=== PATIENT | female | born 1995 | race Caucasian/White ===

== ENCOUNTER → 2018-04-29 15:45 | Outpatient (CLI) | payer BC, SELFPAY ==
[2018-05-06 12:14] LABS: HPV Reflexed? NOT INDICATED
== END ==
PROVIDERS: Visit Provider Obstetrics & Gynecology
DX: Z12.4 Encounter for screening for malignant neoplasm of cervix (principal)
CPT/HCPCS: 88175; G0145

== ENCOUNTER → 2020-09-26 | Outpatient (CLI) | payer BC, OTHER, SELFPAY ==
[2020-09-26 08:52] VITALS: BMI 25.6
[2020-09-28 20:46] LABS: HPV Reflexed? NOT INDICATED
== END | disposition home or self-care (01) ==
LOC: LABSPEC 12:47
PROVIDERS: PCP Family Medicine; Referring Provider Nurse Practitioner Women's Health; Visit Provider Nurse Practitioner Women's Health
DX: Z12.4 Encounter for screening for malignant neoplasm of cervix (principal)
CPT/HCPCS: 88175; G0145

== ENCOUNTER → 2020-11-23 16:10 | Outpatient (CLI) | payer BC, OTHER, SELFPAY ==
[2020-09-26 08:52] VITALS: BMI 25.6
[2020-11-23 18:09] LABS: hCG Titer Quant., Serum 10 mIU/mL (1-3)
== END ==
PROVIDERS: PCP Family Medicine; Referring Provider Obstetrics & Gynecology; Visit Provider Obstetrics & Gynecology
DX: N91.2 Amenorrhea, unspecified (principal)
CPT/HCPCS: 36415; 84702; 86850; 86900; 86901

== ENCOUNTER → 2020-11-25 09:55 | Outpatient (CLI) | payer BC, OTHER, SELFPAY ==
[2020-11-24 14:14] VITALS: BMI 25.2
[2020-11-25 10:46] LABS: hCG Titer Quant., Serum 2 mIU/mL (1-3)
== END ==
PROVIDERS: PCP Family Medicine; Referring Provider Obstetrics & Gynecology; Visit Provider Obstetrics & Gynecology
DX: O02.1 Missed abortion (principal)
CPT/HCPCS: 36415; 84702

== ENCOUNTER → 2020-12-25 11:59 | Outpatient (CLI) | payer BC, OTHER, SELFPAY ==
[2020-12-18 14:10] VITALS: BMI 25.5
[2020-12-25 12:43] LABS: hCG Titer Quant., Serum 9 mIU/mL (1-3)
== END ==
PROVIDERS: PCP Family Medicine; Referring Provider Obstetrics & Gynecology; Visit Provider Obstetrics & Gynecology
DX: N91.2 Amenorrhea, unspecified (principal)
CPT/HCPCS: 36415; 84702

== ENCOUNTER → 2020-12-27 09:09 | Outpatient (CLI) | payer BC, OTHER, SELFPAY ==
[2020-12-18 14:10] VITALS: BMI 25.5
[2020-12-27 09:46] LABS: hCG Titer Quant., Serum 4 mIU/mL (1-3)
== END ==
PROVIDERS: PCP Family Medicine; Referring Provider Obstetrics & Gynecology; Visit Provider Obstetrics & Gynecology
DX: N91.2 Amenorrhea, unspecified (principal)
CPT/HCPCS: 36415; 84702

== ENCOUNTER → 2021-01-11 15:03 | Outpatient (CLI) | payer BC, OTHER, SELFPAY ==
[2021-01-11 14:12] VITALS: BMI 25.5
[2021-01-11 16:06] LABS: Thyroid Stim Hormone (TSH) 1.26 uIU/mL (0.358-3.74)
[2021-01-14 12:07] LABS: Dilute Prothrombin Time (dPT) 33.2 sec (0.0-55.0); Dilute Russell Viper Venom 30.7 sec (0.0-47.0); PTT-LA 39.3 sec (0.0-51.9); Thrombin Time 17.5 sec (0.0-23.0)
[2021-01-15 07:41] LABS: Anti-Cardiolipin Ab, IgA, Qn < 9 APL U/mL (0-11); Anti-Cardiolipin Ab, IgG, Qn 10 GPL U/mL (0-14); Anti-Cardiolipin Ab, IgM, Qn 13 MPL U/mL (0-12); Beta-2-Glycoprotein I IgA <9 (0-25); Beta-2-Glycoprotein I IgG <9 (0-20); Beta-2-Glycoprotein I IgM <9 (0-32); Interpretation Comment: (.)
== END ==
PROVIDERS: PCP Family Medicine; Referring Provider Obstetrics & Gynecology; Visit Provider Obstetrics & Gynecology
DX: N96 Recurrent pregnancy loss (principal)
CPT/HCPCS: 36415; 84443; 86146; 86147

== ENCOUNTER → 2021-01-15 14:28 | Outpatient (CLI) | payer BC, OTHER, SELFPAY ==
[2021-01-11 14:12] VITALS: BMI 25.5
--- NOTE | 2021-01-15 14:30 | US_ITS ---
STUDY: Ultrasound pelvis non-OB complete with transvaginal imaging CLINICAL: Female, 25 years old. History of recurrent miscarriage TECHNIQUE: Transvaginal COMPARISON: None. FINDINGS: Normal uterine size measuring 6.7 x 5.3 x 3 cm in maximal craniocaudal dimension. There are no myometrial masses. Normal endometrial thickness measuring 8 mm. The endometrium is hyperechoic. There are no endometrial masses, and there is no fluid in the endometrial cavity. There are multiple nabothian cysts. Normal right ovary, measuring 4.7 x 3.4 x 2.0 cm. There are multiple follicles without a dominant cyst. Normal left ovary, measuring 2.8 x 1.7 x 1.6 cm. There are multiple follicles without a dominant cyst. There is a small to moderate amount of free fluid in the pelvis. Polycystic ovary disease: No. The bladder is distended. US/Pelvic (Non ) IMPRESSION: Small to moderate amount of fluid in the pelvis. Potentially a recently ruptured ovarian cyst could have this appearance. No visualized torsion. Electronically Signed: Betzy Montgomery MD at 8:11 EDT Tel , Service support ,
--- NOTE | 2021-01-15 14:30 | US_ITS ---
STUDY: Ultrasound pelvis non-OB complete with transvaginal imaging CLINICAL: Female, 25 years old. History of recurrent miscarriage TECHNIQUE: Transvaginal COMPARISON: None. FINDINGS: Normal uterine size measuring 6.7 x 5.3 x 3 cm in maximal craniocaudal dimension. There are no myometrial masses. Normal endometrial thickness measuring 8 mm. The endometrium is hyperechoic. There are no endometrial masses, and there is no fluid in the endometrial cavity. There are multiple nabothian cysts. Normal right ovary, measuring 4.7 x 3.4 x 2.0 cm. There are multiple follicles without a dominant cyst. Normal left ovary, measuring 2.8 x 1.7 x 1.6 cm. There are multiple follicles without a dominant cyst. There is a small to moderate amount of free fluid in the pelvis. Polycystic ovary disease: No. The bladder is distended. US/Transvaginal Non- IMPRESSION: Small to moderate amount of fluid in the pelvis. Potentially a recently ruptured ovarian cyst could have this appearance. No visualized torsion. Electronically Signed: Betzy Montgomery MD at 8:11 EDT Tel , Service support ,
== END ==
PROVIDERS: PCP Family Medicine; Referring Provider Obstetrics & Gynecology; Visit Provider Obstetrics & Gynecology
DX: N96 Recurrent pregnancy loss (principal)
CPT/HCPCS: 76830; 76856

== ENCOUNTER → 2021-01-23 11:42 | Outpatient (CLI) | payer BC, OTHER, SELFPAY ==
[2021-01-11 14:12] VITALS: BMI 25.5
[2021-01-23 12:28] LABS: hCG Titer Quant., Serum 42 mIU/mL (1-3)
== END ==
PROVIDERS: PCP Family Medicine; Referring Provider Obstetrics & Gynecology; Visit Provider Obstetrics & Gynecology
DX: N91.2 Amenorrhea, unspecified (principal)
CPT/HCPCS: 36415; 84702

== ENCOUNTER → 2021-01-25 12:28 | Outpatient (CLI) | payer BC, OTHER, SELFPAY ==
[2021-01-11 14:12] VITALS: BMI 25.5
[2021-01-25 13:29] LABS: hCG Titer Quant., Serum 117 mIU/mL (1-3)
== END ==
PROVIDERS: PCP Family Medicine; Referring Provider Obstetrics & Gynecology; Visit Provider Obstetrics & Gynecology
DX: N91.2 Amenorrhea, unspecified (principal)
CPT/HCPCS: 36415; 84702

== ENCOUNTER → 2021-01-27 11:41 | Outpatient (CLI) | payer BC, OTHER, SELFPAY ==
[2021-01-11 14:12] VITALS: BMI 25.5
[2021-01-27 12:41] LABS: hCG Titer Quant., Serum 282 mIU/mL (1-3)
== END ==
PROVIDERS: PCP Family Medicine; Referring Provider Obstetrics & Gynecology; Visit Provider Obstetrics & Gynecology
DX: N96 Recurrent pregnancy loss (principal)
CPT/HCPCS: 36415; 84702

== ENCOUNTER → 2021-02-22 | Outpatient (CLI) | payer BC, OTHER, SELFPAY ==
[2021-02-22 09:57] VITALS: BMI 25.7
[2021-02-22 11:11] LABS: Amphetamine Urine VISTA NEGATIVE (<1000 ng/mL); Barbiturate Urine VISTA NEGATIVE (< 200 ng/mL); Benzodiazepine Urine VISTA NEGATIVE (< 200 ng/mL); Cocaine Urine VISTA NEGATIVE (< 300 ng/mL); Ecstacy Urine VISTA NEGATIVE (< 500 ng/mL); Methadone Urine VISTA NEGATIVE (< 300 ng/mL); PCP Urine VISTA NEGATIVE (< 25 ng/mL); THC Urine VISTA NEGATIVE (< 50 ng/mL); Vista UDS pH Range 7
[2021-02-24 03:07] LABS: Chlamydia By Nucleic Acid AMP Negative (Negative)
[2021-02-24 07:32] LABS: Gonococcus By Nucleic Acid AMP Negative (Negative)
== END | disposition home or self-care (01) ==
PROVIDERS: PCP Family Medicine; Referring Provider Obstetrics & Gynecology; Visit Provider Obstetrics & Gynecology
DX: O09.90 Supervision of high risk pregnancy, unspecified, unspecified trimester (principal); Z3A.00 Weeks of gestation of pregnancy not specified
CPT/HCPCS: 80307; 87077; 87086; 87088; 87186; 87491; 87591

== ENCOUNTER → 2021-03-12 11:49 | Outpatient (CLI) | payer BC, OTHER, SELFPAY ==
[2021-03-09 10:08] VITALS: BMI 25.7
[2021-03-12 12:17] LABS: Absolute Lymphocyte Count 1.45 X10^3/uL (0.83-4.51); Absolute Neutrophil Count 3.5 X10^3/uL (2.0-7.7); Basophil# 0.04 X10^3/uL; Basophil% 0.7 % (0-1); Eosinophil# 0.27 X10^3/uL; Eosinophils% 4.8 % (0-5); Hemoglobin 11.1 g/dL (12.0-15.0); Lymphocyte # 1.45 X10^3/ul (0.83-4.51); Lymphocyte % 25.8 % (19-41); Mean Corp Hgb Conc 33.6 g/dL (32-36); Mean Corpuscular Hgb 28.4 pg (27.0-32.0); Mean Corpuscular Volume 84.4 fL (81-99); Mean Platelet Vol. 10.4 fl (6.2-12.0); Monocyte# 0.38 X10^3/uL; Monocyte% 6.8 % (0-10); NRBC Flagged by Analyzer 0 % (0-5); Neutrophil # 3.47 X10^3/uL (2.7-7.7); Neutrophil % 61.7 % (47-70); Platelet Count 148 K/mm3 (150-450); RBC Distribution Width CV 11.7 % (11.6-14.6); RBC Distribution Width SD 35.8 fl (35.1-43.9); Red Blood Count 3.91 M/mm3 (4.2-5.4); White Blood Count 5.6 K/mm3 (4.4-11.0)
[2021-03-12 13:09] LABS: NATERA MAILED SPECIMEN
[2021-03-12 13:31] LABS: HIV - WCH Non-Reactive (Nonreactive); Hepatitis B Surface Antigen Non-Reactive (Nonreactive); Hepatitis C Antibody Non-Reactive (Nonreactive); Rubella IgG Non-Reactive (Nonreactive); Syphilis Antibodies Non-reactive
[2021-03-15 03:07] LABS: Dilute Prothrombin Time (dPT) 32.3 sec (0.0-55.0); Dilute Russell Viper Venom 30.9 sec (0.0-47.0); PTT-LA 38.9 sec (0.0-51.9); Thrombin Time 16.6 sec (0.0-23.0); dPT Confirm Ratio 1.12 Ratio (0.00-1.40)
[2021-03-15 07:58] LABS: Anti-Cardiolipin Ab, IgA, Qn < 9 APL U/mL (0-11); Anti-Cardiolipin Ab, IgG, Qn < 9 GPL U/mL (0-14); Anti-Cardiolipin Ab, IgM, Qn 12 MPL U/mL (0-12); Beta-2-Glycoprotein I IgA <9 (0-25); Beta-2-Glycoprotein I IgG <9 (0-20); Beta-2-Glycoprotein I IgM <9 (0-32); Interpretation Comment: (.)
== END ==
PROVIDERS: PCP Family Medicine; Visit Provider Obstetrics & Gynecology
DX: O09.90 Supervision of high risk pregnancy, unspecified, unspecified trimester (principal); O26.21 Pregnancy care for patient with recurrent pregnancy loss, first trimester; Z3A.00 Weeks of gestation of pregnancy not specified; Z31.430 Encounter of female for testing for genetic disease carrier status for procreative management
CPT/HCPCS: 36415; 85025; 86146; 86147; 86703; 86762; 86780; 86803; 86850; 86900; 86901; 87340

== ENCOUNTER → 2021-07-11 08:32 | Outpatient (CLI) | payer BC, SELFPAY ==
[2021-07-11 09:04] LABS: Absolute Lymphocyte Count 1.44 X10^3/uL (0.83-4.51); Absolute Neutrophil Count 6.7 X10^3/uL (2.0-7.7); Basophil# 0.03 X10^3/uL; Basophil% 0.3 % (0-1); Eosinophil# 0.11 X10^3/uL; Eosinophils% 1.2 % (0-5); Hematocrit 32.5 % (37-47); Hemoglobin 11.2 g/dL (12.0-15.0); Lymphocyte # 1.44 X10^3/ul (0.83-4.51); Lymphocyte % 16.3 % (19-41); Mean Corp Hgb Conc 34.5 g/dL (32-36); Mean Corpuscular Hgb 29.7 pg (27.0-32.0); Mean Corpuscular Volume 86.2 fL (81-99); Mean Platelet Vol. 10.8 fl (6.2-12.0); Monocyte# 0.47 X10^3/uL; Monocyte% 5.3 % (0-10); NRBC Flagged by Analyzer 0 % (0-5); Neutrophil # 6.66 X10^3/uL (2.7-7.7); Neutrophil % 75.7 % (47-70); Platelet Count 134 K/mm3 (150-450); RBC Distribution Width CV 11.9 % (11.6-14.6); RBC Distribution Width SD 37.2 fl (35.1-43.9); Red Blood Count 3.77 M/mm3 (4.2-5.4); White Blood Count 8.8 K/mm3 (4.4-11.0)
[2021-07-11 09:24] LABS: Glucose Challenge Gest 1H 50g 88 mg/dL (70-140)
== END ==
PROVIDERS: PCP Family Medicine; Referring Provider Obstetrics & Gynecology; Visit Provider Obstetrics & Gynecology
DX: Z34.92 Encounter for supervision of normal pregnancy, unspecified, second trimester (principal); Z13.1 Encounter for screening for diabetes mellitus
CPT/HCPCS: 36415; 82950; 85025; 86850; 86900; 86901

== ENCOUNTER → 2021-08-07 10:08 | Outpatient (CLI) | payer BC, SELFPAY ==
[2021-08-07 10:28] LABS: Absolute Lymphocyte Count 1.34 X10^3/uL (0.83-4.51); Absolute Neutrophil Count 5.7 X10^3/uL (2.0-7.7); Basophil# 0.03 X10^3/uL; Basophil% 0.4 % (0-1); Eosinophil# 0.11 X10^3/uL; Eosinophils% 1.4 % (0-5); Hematocrit 35.2 % (37-47); Hemoglobin 11.3 g/dL (12.0-15.0); Lymphocyte # 1.34 X10^3/ul (0.83-4.51); Lymphocyte % 16.9 % (19-41); Mean Corp Hgb Conc 32.1 g/dL (32-36); Mean Corpuscular Hgb 28.3 pg (27.0-32.0); Mean Corpuscular Volume 88.2 fL (81-99); Mean Platelet Vol. 10.6 fl (6.2-12.0); Monocyte# 0.63 X10^3/uL; Monocyte% 7.9 % (0-10); NRBC Flagged by Analyzer 0 % (0-5); Neutrophil % 71.6 % (47-70); Platelet Count 142 K/mm3 (150-450); RBC Distribution Width CV 12.5 % (11.6-14.6); RBC Distribution Width SD 39.9 fl (35.1-43.9); Red Blood Count 3.99 M/mm3 (4.2-5.4)
== END ==
PROVIDERS: PCP Family Medicine; Referring Provider Obstetrics & Gynecology; Visit Provider Obstetrics & Gynecology
DX: O99.119 Other diseases of the blood and blood-forming organs and certain disorders involving the immune mechanism complicating pregnancy, unspecified trimester (principal); D69.6 Thrombocytopenia, unspecified; Z3A.00 Weeks of gestation of pregnancy not specified
CPT/HCPCS: 36415; 85025

== ENCOUNTER → 2021-08-10 14:46 | Outpatient (CLI) | payer BC, SELFPAY ==
--- NOTE | 2021-08-10 14:48 | US_ITS ---
History: growth Obstetrical ultrasound: Findings: Single live intrauterine gestation in cephalic presentation, longitudinal lie. cardiac rate is 145 BPM. Fundal placenta without previa or abruption. Grade 1 maturity change. Amniotic fluis index is 19.7 cm Cervix is closed and measures 4.2 cm in length. BPD 8.5cm Head circumference 30.7cm Abdominal circumference 30.4cm Femur length 6.2cm EFW 2254 g 75th percentile for estimated age Composite gestational age by ultrasound measurements 33 weeks 3 days. Clinical gestational is 32 weeks 4 days. Clinical EDC is October 01, 2021. No anatomical abnormalities are identified. Impresion: Single live 32 week 4 day intrauterine gestation with interval growth within the range of normal. at 1706 Reported and signed by: Esteban Read MD Electronically Signed: Esteban Read MD at 17:05 EST Tel , Service support , US/OB Limited With Biometrics
== END ==
PROVIDERS: PCP Family Medicine; Referring Provider Obstetrics & Gynecology; Visit Provider Obstetrics & Gynecology
DX: O98.519 Other viral diseases complicating pregnancy, unspecified trimester (principal); U07.1 COVID-19; Z3A.00 Weeks of gestation of pregnancy not specified
CPT/HCPCS: 76816

== ENCOUNTER 2021-09-04 07:55 | Outpatient (CLI) | payer BC, SELFPAY ==
--- NOTE | 2021-09-04 08:01 | US_ITS ---
STUDY: SECOND AND THIRD TRIMESTER OBSTETRICAL ULTRASOUND REASON FOR EXAM: Female, 26 years old growth LMP: 01/04/2021. TECHNIQUE: Transabdominal TECHNICAL QUALITY: Adequate. PRIOR ULTRASOUND: Comparison is made with prior study dated 08/10/2021 FINDINGS: There is a single intrauterine fetus. The fetus is in a cephalic presentation. There is demonstrated cardiac activity with a heart rate of 126 bpm. There is a normal amniotic fluid volume. The largest amniotic fluid pocket measures 4.9 cm. The amniotic fluid index (MATTEO) is 14.2 cm. The placenta is fundal and posterior in location. There are Grade 1 placental changes. The cervix measures 4 cm in length. The adnexal regions are not visualized. BIOMETRY: BPD: 9.19 cm: 37 weeks, 2 days HC: 33 cm: 37 weeks, 3 days AC: 35.2 cm: 39 weeks, 0 days FL: 6.92 cm: 35 weeks, 3 days CI: 83% FL/BPD: 75% FL/HC: FL/AC: 20% HC/AC: 0.94 age by current US: 37 weeks, 0 days. RONEY by current US: 09/25/2021. Estimated weight: 3380 grams, +/- 507 grams, 92 %. age by prior US: 37 weeks, 0 days. RONEY by prior US: 09/25/2021. Age by LMP: 36 weeks, 1 days. RONEY by LMP: 10/01/2021. US/OB Limited With Biometrics IMPRESSION: Single live intrauterine gestation with a mean gestational age of 37 weeks. The measurements obtained today fall within the normal expected range. Electronically Signed: Philip Bliss MD at 9:35 EST , Service support ,
== END 2021-09-04 23:59 | disposition short-term general hospital (02) ==
PROVIDERS: PCP Family Medicine; Referring Provider Obstetrics & Gynecology; Visit Provider Obstetrics & Gynecology
DX: Z36.85 Encounter for antenatal screening for Streptococcus B (principal)
CPT/HCPCS: 76816; 87081

== ENCOUNTER 2021-10-01 21:50 | Inpatient (IN) | payer BC, SELFPAY ==
[2021-10-01 21:14] VITALS: TEMP 36.6; O2SAT 99
[2021-10-01 21:15] VITALS: BP 134/83; PULSE 113
[2021-10-01 21:20] VITALS: BMI 33.3
[2021-10-01 21:45] LABS: ROM Internal Control Test YES-OK TO RESULT pt. (Internal QC)
[2021-10-01 21:47] LABS: ROM Patient Test POSITIVE (Negative)
[2021-10-01] MEDS: Lactated Ringers 1,000 ML 50 ML IV (22:00)
[2021-10-01 23:20] LABS: Absolute Lymphocyte Count 2.27 X10^3/uL (0.83-4.51); Absolute Neutrophil Count 6.2 X10^3/uL (2.0-7.7); Basophil# 0.04 X10^3/uL; Basophil% 0.4 % (0-1); Eosinophil# 0.13 X10^3/uL; Eosinophils% 1.4 % (0-5); Hematocrit 33.8 % (37-47); Hemoglobin 11.7 g/dL (12.0-15.0); Lymphocyte # 2.27 X10^3/ul (0.83-4.51); Lymphocyte % 23.6 % (19-41); Mean Corp Hgb Conc 34.6 g/dL (32-36); Mean Corpuscular Hgb 29.9 pg (27.0-32.0); Mean Corpuscular Volume 86.4 fL (81-99); Mean Platelet Vol. 11.9 fl (6.2-12.0); Monocyte# 0.85 X10^3/uL; Monocyte% 8.8 % (0-10); NRBC Flagged by Analyzer 0 % (0-5); Neutrophil % 64.4 % (47-70); Platelet Count 139 K/mm3 (150-450); RBC Distribution Width CV 12.5 % (11.6-14.6); RBC Distribution Width SD 39.3 fl (35.1-43.9); Red Blood Count 3.91 M/mm3 (4.2-5.4); White Blood Count 9.6 K/mm3 (4.4-11.0)
--- NOTE | 2021-10-01 23:35 | NURSING ---
Discussed intermittent auscultation with patient, plans to rest at this time and prefers external monitors to be left on. Pt plans to get epidural for pain management.
[2021-10-02] VITALS (63 sets, daily range): BP systolic 105–137; BP diastolic 56–83; PULSE 79–117; TEMP 36.1–37.2; O2SAT 97–100
--- NOTE | 2021-10-02 01:36 | HP.PCM.OB_ITS ---
HPI - General General Date of Admission: 10/01/21 HPI Narrative HEATHER ANGEL, is a 26 F who presents with ROM clear fluid since 8 tonight. she has some mild ctx good fm. Maternal Data Information RONEY Calculator Estimated Delivery Date Method Current WG Current Estimate 10/01/21 LMP (Certain) 40w 1d PFSH PFS Medical History (Updated 10/02/21 @ 01:[address] Ana Wynne MD) Biotinidase deficiency Galactosemia Thrombocytopenia affecting Home Medications docosahexaenoic acid 200 mg capsule 200 mg PO DAILY 09/26/20 [History Last Taken 10/01/21] omega-3 fatty acids 1,000 mg capsule 1,000 mg PO DAILY 09/26/20 [History Last Taken Unknown] aspirin 81 mg tablet,delayed release 81 mg PO DAILY 02/08/21 [History Last Taken 10/01/21] Allergy/AdvReac Type Severity Reaction Status Date / Time No Known Allergies Allergy Verified 10/01/21 21:22 Family History Grandfather Cancer unknown type Grandmother Hypertension Grandfather Hypertension Grandmother Asthma Social History adopted: No household members: spouse number of children: 0 current occupational status: employed current occupation: [employer] sexually active: Yes Smoking Status: Never smoker alcohol intake: never substance use type: does not use seatbelt use: always do you feel safe at home: Yes additional social history: 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 Date Name GA/Weeks Outcome Route Bth Weight Infant Gen Labor Lgth Anesthesia Del Locatn Provider FOB Unknown 11/2020 spontaneous Unknown 12/2020 spontaneous Visit Details Expected Delivery Route/Plan Labor Preferences- CB/BF classes: discussed labor support person: Bam labor intervention preferences: no specific pain management options preferred: epidural cut cord/dad catch: yes : yes PP control planned: [] discussed possible routes of delivery and associated risks: [] special requests: [] Plans covid status: pos, counseled regarding risk of covid in vs vaccination and declined vaccination flu vaccine: declined tdap vaccine: given rhogam: given LARC form signed: declined movement and labor precautions reviewed. Problem list reviewed and updated with the most current plan of care details and appropriate orders placed. Relevant counseling for the gestational age provided. Continue routine care and follow up unless otherwise noted in visit notes/problem list details OB Flowsheet Initial Weight: 145 lb Date -?-?-?-?-?-?-?-?-?-?-?-?- EGA Weight BP Urine Prot -?-?-?-?-?-?-?-?-?-?-?-?- Glucose FHR FuHt Pres Dilation -?-?-?-?-?-?-?-?-?-?-?-?- Effaced St Visit Note 02/22/21 -?-?-?-?-?-?-?-?-?-?-?-?- 8w 3d 145 lb 4 oz (+4 oz) 124/70 -?-?-?-?-?-?-?-?-?-?-?-?- 160 -?-?-?-?-?-?-?-?-?-?-?-?- GP - CRL 17mm co nsistent with LMP 03/09/21 -?-?-?-?-?-?-?-?-?-?-?-?- 10w 4d 120/80 Negative -?-?-?-?-?-?-?-?-?-?-?-?- Negative 160 -?-?-?-?-?-?-?-?-?-?-?-?- GP - no cramping or bleeding. Getting NOB labs and genetic testing drawn next week. 03/28/21 -?-?-?-?-?-?-?-?-?-?-?-?- 13w 2d 148 lb 4 oz (+3 lb 4 oz) 138/80 Negative -?-?-?-?-?-?-?-?-?-?-?-?- Negative 157 -?-?-?-?-?-?-?-?-?-?-?-?- GP - work in for spotting. US with nl heart tones and no evidence of cuong. Had gender reveal last weekend - having a boy! Anatomy scan ordered 05/03/21 -?-?-?-?-?-?-?-?-?-?-?-?- 18w 3d 154 lb 2 oz (+9 lb 2 oz) 120/70 Negative -?-?-?-?-?-?-?-?-?-?-?-?- Negative 145 -?-?-?-?-?--?-?-?-?-?-?-?- GP - no cramping or bleeding. +FM. Anatomy scheduled next week. 05/28/21 -?-?-?-?-?-?-?-?-?-?-?-?- 22w 0d 160 lb (+15 lb) 118/62 -?-?-?-?-?-?-?-?-?-?-?-?- 140 -?-?-?-?-?-?-?-?-?-?-?-?- SM- no vb lof go od fm no regular ctx 06/25/21 -?-?-?-?-?-?-?-?-?-?-?-?- 26w 0d 163 lb (+18 lb) 128/72 Negative -?-?-?-?-?-?-?-?-?-?-?-?- Negative 140 26 -?-?-?-?-?-?-?-?-?-?-?-?- SM- no vb lof go od fm no regular ctx discussed covid pos testing, 07/11/21 -?-?-?-?-?-?-?-?-?-?-?-?- 28w 2d 168 lb 4 oz (+23 lb 4 oz) 134/80 Negative -?-?-?-?-?-?-?-?-?-?-?-?- Negative 154 28 Breech -?-?-?-?-?-?-?-?-?-?-?-?- JV- no lof, vag bleeding or dec fm. Growth scan ordered plan for 31/32 week scan. continue baby asa 07/25/21 -?-?-?-?-?-?-?-?-?-?-?-?- 30w 2d 173 lb (+28 lb) 136/86 Negative -?-?-?-?-?-?-?-?-?-?-?-?- Negative 137 31 -?-?-?-?-?-?-?-?-?-?-?-?- JV- pressure sli ghtly elevated. no proteinuria or headaches. pt will check bp at work and will also have her sister who is a nurse check her. She will call if bp is more than 150/90 or if develops headaches. growth scan in 2 weeks. 08/07/21 -?-?-?-?-?-?-?-?-?-?-?-?- 32w 1d 175 lb (+30 lb) 122/60 Negative -?-?-?-?-?-?-?-?-?-?-?-?- Negative 135 33 -?-?-?-?-?-?-?-?-?-?-?-?- SM- no vb lof go od fm no regualr ctx repeat cbc today 08/21/21 -?-?-?-?-?-?-?-?-?-?-?-?- 34w 1d 182 lb (+37 lb) 136/80 Negative -?-?-?-?-?-?-?-?-?-?-?-?- Negative 135 35 34 -?-?-?-?-?-?-?-?-?-?-?-?- SM- no vb lof go od fm no rgular ctx 09/04/21 -?-?-?-?-?-?-?-?-?-?-?-?- 36w 1d 183 lb (+38 lb) 122/70 -?-?-?-?-?-?-?-?-?-?-?-?- 140 37 Cephalic 1 -?-?-?-?-?-?-?-?-?-?-?-?- 20 -4 SM- no vb lof good fm no regular ctx gbs done 09/12/21 -?-?-?-?-?-?-?-?-?-?-?-?- 37w 2d 184 lb 6 oz (+39 lb 6 oz) 100/70 Negative -?-?-?-?-?-?-?-?-?-?-?-?- Negative 143 38 Cephalic 1 -?-?-?-?-?-?-?-?-?-?-?-?- 50 -4 JV- no lof , vaginal bleeding, or dec fm. gbs was neg 09/18/21 -?-?-?-?-?-?-?-?-?-?-?-?- 38w 1d 184 lb (+39 lb) 124/80 Negative -?-?-?-?-?-?-?-?-?-?-?-?- Negative 140 38 Cephalic 1 -?-?-?-?-?-?-?-?-?-?-?-?- 50 -4 SM- no vb lof good fm no regular ctx 09/25/21 -?-?-?-?-?-?-?-?-?-?-?-?- 39w 1d 189 lb (+44 lb) 130/82 Negative -?-?-?-?-?-?-?-?-?-?-?-?- Negative 146 39 Cephalic 1 -?-?-?-?--?-?-?-?-?-?-?-?- 80 -3 JV- cx sti ll posterior. labor precautions discussed. aim for 41 week IOL if no labor in the meantime. 10/01/21 -?-?-?-?-?-?-?-?-?-?-?-?- 40w 0d 188 lb (+43 lb) 134/83 132/78 -?-?-?-?-?-?-?-?-?-?-?-?- -?-?-?-?-?-?-?-?-?-?-?-?- NST FHR Rate Baby A Baseline: 140 Variability:: Moderate Accelerations:: 15 x 15 Decelerations:: None NST Reactive:: Yes FHR Category:: Category I Uterine Activity:: q3-5 ROS Constitutional Constitutional: Reports systems reviewed and no addt'l complaints, except as documented ENT HEENT: Reports systems reviewed and no addt'l complaints, except as documented Cardiovascular Cardiovascular: Reports systems reviewed and no addt'l complaints, except as documented Respiratory/Chest Respiratory/Chest: Reports systems reviewed and no addt'l complaints, except as documented Gastrointestinal Gastrointestinal: Reports systems reviewed and no addt'l complaints, except as documented and nausea; Denies abdominal pain Genitourinary Genitourinary: Reports systems reviewed and no addt'l complaints, except as documented, contractions Details: present and frequency (regular ) and movement Details: present Musculoskeletal Musculoskeletal: Reports systems reviewed and no addt'l complaints, except as documented Integumentary Integumentary: Reports as per HPI Neurologic Neurologic: Reports systems reviewed and no addt'l complaints, except as documented Endocrine Endocrinology: Reports systems reviewed and no addt'l complaints, except as documented Vital Signs Vital Signs Vital Signs: 10/01/21 21:14 10/01/21 21:15 10/02/21 01:23 Temperature 97.9 F 97.1 F L Temperature Source Temporal Pulse Rate 113 H 80 Blood Pressure 134/83 H 132/78 H BP Systolic 134 132 BP Diastolic 83 78 Pulse Ox 99 100 Weight Weight: 188 lb Body Mass Index (BMI) 33.3 Physical Exam Const alert, oriented x3 and healthy appearing Constitutional Narrative: uncomfortable with contractions HEENT normocephalic and moist oral mucous membranes Head and Scalp: atraumatic Neck full ROM, no lymphadenopathy, supple and thyroid normal General: trachea midline Thyroid: thyroid normal Lymph Lymphatic: no lymphadenopathy noted Chest inspection of chest normal Resp normal respiratory effort Cardio regular rate GI normal to inspection, nondistended, normoactive bowel sounds, soft to palpation and non-tender Inspection: gravid external exam normal Bimanual Exam - Vag & Uterus: uterus non-tender Manual OB Exam: estimated gestational size appropriate, presentation cephalic, dilated, effaced and station Extremity normal to inspection General Extremity: Negative for edema Skin no rashes or lesions noted Neuro deep tendon reflexes 2+ bilaterally Motor Exam: strength 5/5 throughout and clonus absent Psych mental status grossly normal Labs Labs Labs: Blood Type O NEGATIVE Antibody Screen NEGATIVE Hct 33.8 % (37-47) L Hgb 11.7 g/dL (12.0-15.0) L Obstetrics US Syphilis Total Ab Non-reactive Rubella IgG Antibody Non-Reactive (Nonreactive) Hep Bs Antigen Non-Reactive (Nonreactive) Neisseria gonorrhoeae DNA (AUDRA) Negative (Negative) HIV 1&2 Antibody Non-Reactive (Nonreactive) Glucose 1 Hr 50 gm 88 mg/dL (70-140) Assessment & Plan (1) 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 (2) COVID-19 affecting , antepartum: COMMENT: at 24 weeks, 81 mg asa, growth US at 32 and 36 weeks (3) Gestational thrombocytopenia: COMMENT: repeat CBC in 4w (4) : QUALIFIERS: Weeks of gestation: 39 weeks Qualified Code(s): Z3A.39 - 39 weeks gestation of COMMENT: GBS negative, carrier results reviewed. NIPT low risk, nl anatomy (5) Supervision of high risk , antepartum: COMMENT: PRR RONEY 10/01/21 Boy! Jacen Spouse: Bam Angel (6) Recurrent loss: COMMENT: minimal elevated APL:rpt 12 wk, repeat nl (7) Need for rhogam due to Rh negative mother: COMMENT: Rhogam given 11/24 due to quant of 10 with bleeding. Given 07/11/21 (8) Active labor at term: COMMENT: epi PRN, pit PRN (9) SROM (spontaneous rupture of membranes):
[2021-10-02] MEDS: Oxytocin 30 units/NS 500 ml 30 UNITS/500 ML IV.SOLN IV (06:09)
[2021-10-02] MEDS: Lactated Ringers 500 ML 999 ML IV (09:26)
--- NOTE | 2021-10-02 10:06 | PCM.PN.OB ---
Subjective Subjective patient managing contraction discomfort doing well current tracing: FHT: 130 Moderate variability reactive no decelerations category I tracing [place]: q 2-3 Contractions reviewed tracing abnormalities since last note: no significant A/P: pit per protocol epi when desired reassuring status Objective Data Objective Data Vital Signs: Vital Signs Temp Pulse BP Pulse Ox 97.4 F L 96 128/69 H 99 10/02/21 09:07 10/02/21 09:08 10/02/21 09:08 10/02/21 05:47 Weight: 188 lb Body Mass Index (BMI) 33.3 Intake & Output: Intake and Output for Last 24 Hours 09/30/21 10/01/21 10/02/21 23:59 23:59 23:59 Intake Total 1522.97 / 1522.97 Output Total 950 / 950 Balance 572.97 / 572.97 Lab / Micro Data Result Diagrams: 10/01/21 23:05 Labs: Laboratory Results - last 24 hr 10/01/21 21:27: Vag Amniotic Fld Detect POSITIVE H 10/01/21 22:00: Blood Type O NEGATIVE, Antibody Screen NEGATIVE 10/01/21 23:05: WBC 9.6, RBC 3.91 L, Hgb 11.7 L, Hct 33.8 L, MCV 86.4, MCH 29.9, MCHC 34.6, RDW Std Deviation 39.3, RDW Coeff of Luis 12.5, Plt Count 139 L, MPV 11.9, Immature Gran % (Auto) 1.400 H, Neut % (Auto) 64.4, Lymph % (Auto) 23.6, [place] % (Auto) 8.8, Eos % (Auto) 1.4, Baso % (Auto) 0.4, Absolute Neuts (auto) 6.2, Absolute Lymphs (auto) 2.27, Nucleated RBC % 0 Micro: Microbiology 10/01/21 23:45 Nasal Secretion SARS-CoV-2 Antigen (Rapid) - Final
[2021-10-02] MEDS: fentaNYL-bupivacaine (epidural) 100 ML BAG EPIDURAL ×2 (10:31→15:39)
[2021-10-02] MEDS: Lactated Ringers 1,000 ML 200 ML IV ×2 (11:06→15:41)
[2021-10-02] MEDS: Ondansetron 4 MG/2 ML Vial IV (15:42)
[2021-10-02] MEDS: Oxytocin 30 units/NS 500 ml 30 UNITS/500 ML IV.SOLN 334 UNITS IV (18:11)
[2021-10-02] MEDS: Methylergonovine 0.2 MG/ML Ampul IM (18:15)
[2021-10-02] MEDS: Carboprost Tromethamine 250 MCG/ML Ampul IM (18:20)
--- NOTE | 2021-10-02 18:42 | EX.PCM.OBRPT ---
Assessment & Plan (1) SROM (spontaneous rupture of membranes): (2) Active labor at term: COMMENT: epi PRN, pit PRN (3) Need for rhogam due to Rh negative mother: COMMENT: Rhogam given 11/24 due to quant of 10 with bleeding. Given 07/11/21 (4) Recurrent loss: COMMENT: minimal elevated APL:rpt 12 wk, repeat nl (5) Supervision of high risk , antepartum: COMMENT: PRR RONEY 10/01/21 Domonique Bach Spouse: Bam Angel (6) : QUALIFIERS: Weeks of gestation: 39 weeks Qualified Code(s): Z3A.39 - 39 weeks gestation of COMMENT: GBS negative, carrier results reviewed. 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 (8) COVID-19 affecting , antepartum: COMMENT: at 24 weeks, 81 mg asa, growth US at 32 and 36 weeks (9) Gestational thrombocytopenia: COMMENT: repeat CBC in 4w (10) Vaginal delivery: COMMENT: SROM 40 SM laith bach Maternal Data Information RONEY Calculator Estimated Delivery Date Method Current WG Current Estimate 10/01/21 LMP (Certain) 40w 1d Vaginal Delivery Operative Information Date of Procedure: 10/02/21 Pre-Operative Diagnosis: IAL Post-Operative Diagnosis: same Surgery / Procedure Performed: Spontaneous Vaginal Delivery Type of Anesthesia: Epidural Special Medications: methergine hemabate Estimated Blood Loss: 400 Fluids Replaced: crystalloid Findings Description of Procedure: Patient began pushing and delivered the head in the WILTON presentation. The head was delivered atraumatically . The anterior and posterior shoulders delivered without complication followed by the rest of the infant and the infant was placed on the maternal abdomen. Delayed cord clamping was employed for approximately 60 seconds. Cord was clamped and cut and gentle traction was applied to the cord and the placenta delivered spontaneously immediately following it was noted to be intact with three-vessel cord. The perineum and vagina were inspected and noted to have a first-degree perineal laceration that was repaired in the usual fashion with 3-0 Vicryl Rapide. Some uterine atony was encountered which was treated with bimanual massage Methergine and Hemabate, Pitocin. This resolved. EBL was 400. Patient and infant tolerated delivery well. Presentation: WILTON Amniotic Membrane Rupture Type: Artificial Amniotic Fluid Description: Clear Placental Delivery Description: Spontaneous Placenta Disposition: [facility] Cord Vessel Description: 3 Vessels Cord Entanglement: None Delayed Cord Clamping: Yes Post Vaginal Delivery Medications Given After Delivery: IV Pitocin Episiotomy Description: None Laceration: Perineal Extension/lac and 1st degree Complication Complications: None Procedures Urinary/Genital [id number]: [id number] Vaginal Delivery [facility]
[2021-10-02] MEDS: 0.9% Saline Lock 10 ML Syringe IV ×2 (19:33→20:50)
[2021-10-02] MEDS: proCHLORPERazine 10 MG/2 ML Vial IV (19:33)
[2021-10-02] MEDS: Benzocaine/Lanolin/Aloe Vera 1 SPRAY EACH TOPICAL (20:50)
[2021-10-03] VITALS: BP 130/50; PULSE 112; RESP 16; TEMP 37.2; O2SAT 97
[2021-10-03] MEDS: Acetaminophen 500 MG Tablet 1000 MG PO ×4 (02:42→23:26)
[2021-10-03 04:00] VITALS: BP 104/59; PULSE 98; RESP 16; TEMP 36.6
[2021-10-03] MEDS: Lactated Ringers 1,000 ML 999 ML IV (04:14)
[2021-10-03] MEDS: Naproxen 500 MG Tablet PO ×3 (04:19→21:46)
[2021-10-03 04:23] LABS: Absolute Lymphocyte Count 1.16 X10^3/uL (0.83-4.51); Absolute Neutrophil Count 13.9 X10^3/uL (2.0-7.7); Basophil# 0.02 X10^3/uL; Basophil% 0.1 % (0-1); Eosinophil# 0.02 X10^3/uL; Eosinophils% 0.1 % (0-5); Hematocrit 27.5 % (37-47); Hemoglobin 9.7 g/dL (12.0-15.0); Lymphocyte # 1.16 X10^3/ul (0.83-4.51); Lymphocyte % 7.1 % (19-41); Mean Corp Hgb Conc 35.3 g/dL (32-36); Mean Corpuscular Hgb 30.4 pg (27.0-32.0); Mean Corpuscular Volume 86.2 fL (81-99); Mean Platelet Vol. 11.7 fl (6.2-12.0); Monocyte# 1.12 X10^3/uL; Monocyte% 6.9 % (0-10); NRBC Flagged by Analyzer 0 % (0-5); Neutrophil # 13.85 X10^3/uL (2.7-7.7); Neutrophil % 85.2 % (47-70); Platelet Count 124 K/mm3 (150-450); RBC Distribution Width CV 12.2 % (11.6-14.6); RBC Distribution Width SD 38.6 fl (35.1-43.9); Red Blood Count 3.19 M/mm3 (4.2-5.4); White Blood Count 16.3 K/mm3 (4.4-11.0)
[2021-10-03 07:40] VITALS: BP 116/65; PULSE 99; RESP 16; TEMP 36.2; O2SAT 99
--- NOTE | 2021-10-03 08:06 | PN.OBGYN_ITS ---
Subjective Subjective Patient doing well without complaints. Tolerating PO. Ambulating and voiding without difficulty. Feeding well. Denies chest pain, shortness of breath, calf pain/swelling, fevers, chills, lightheadedness. Objective Data Objective Data Vital Signs: Vital Signs Temp Pulse Resp BP Pulse Ox 97.8 F 98 16 104/59 L 97 10/03/21 04:00 10/03/21 04:00 10/03/21 04:00 10/03/21 04:00 10/03/21 00:00 Oxygen Delivery Method Room Air Weight: 188 lb Body Mass Index (BMI) 33.3 Intake & Output: Intake and Output for Last 24 Hours 10/01/21 10/02/21 10/03/21 23:59 23:59 23:59 Intake Total 4847.20 / 4847.20 1000 / 1000 Output Total 1350 / 1350 Balance 3497.20 / 3497.20 1000 / 1000 Lab / Micro Data Result Diagrams: 10/03/21 04:00 Labs: Laboratory Results - last 24 hr 10/02/21 20:55: Screen NEGATIVE, Baby's Blood Type O POSITIVE, Baby's DANY NEGATIVE 10/03/21 04:00: WBC 16.3 H, RBC 3.19 L, Hgb 9.7 L, Hct 27.5 L, MCV 86.2, MCH 30 .4, MCHC 35.3, RDW Std Deviation 38.6, RDW Coeff of Luis 12.2, Plt Count 124 L, MPV 11.7, Immature Gran % (Auto) 0.600, Neut % (Auto) 85.2 H, Lymph % (Auto) 7.1 L, [place] % (Auto) 6.9, Eos % (Auto) 0.1, Baso % (Auto) 0.1, Absolute Neuts (auto) 13.9 H, Absolute Lymphs (auto) 1.16, Nucleated RBC % 0 Micro: Microbiology 10/01/21 23:45 Nasal Secretion SARS-CoV-2 Antigen (Rapid) - Final Physical Exam Const alert and oriented x3 HEENT normocephalic Eyes PERRL Neck full ROM Resp normal respiratory effort GI soft to palpation GI Narrative: FF below U Assessment & Plan (1) Vaginal delivery: COMMENT: SROM 40 SM boy isreal PLAN: s/p PPD # 1 1. routine post delivery care 2. breast feeding- support given 3. rh negative 4. rubella nonimmune 5. Vitals stable since IV bolus. 6. CBC stable
[2021-10-03 12:00] VITALS: BP 110/56; PULSE 98; RESP 16; TEMP 36.6; O2SAT 100
[2021-10-03 16:25] VITALS: BP 108/63; PULSE 98; RESP 16; TEMP 36.4; O2SAT 99
--- NOTE | 2021-10-03 19:00 | NURSING ---
this RN has reviewed and agrees with all charting by SN Dayana
[2021-10-03 21:43] VITALS: BP 109/62; PULSE 98; RESP 16; TEMP 36.2; O2SAT 99
[2021-10-04 02:26] VITALS: BP 105/55; PULSE 83; RESP 16; TEMP 36.3; O2SAT 99
[2021-10-04] MEDS: Naproxen 500 MG Tablet PO (05:52)
[2021-10-04 09:45] VITALS: BP 116/70; PULSE 101; RESP 18; TEMP 36.8
[2021-10-04] MEDS: Acetaminophen 500 MG Tablet 1000 MG PO (10:33)
--- NOTE | 2021-10-04 11:20 | PCM.PN.OB ---
Subjective Subjective Patient doing well without complaints. Tolerating PO. Ambulating and voiding without difficulty. feeding well. Denies chest pain, shortness of breath, calf pain/swelling, fevers, chills, lightheadedness. Objective Data Objective Data Vital Signs: Vital Signs Temp Pulse Resp BP Pulse Ox 98.3 F 101 H 18 116/70 99 10/04/21 09:45 10/04/21 09:45 10/04/21 09:45 10/04/21 09:45 10/04/21 02:26 Oxygen Delivery Method Room Air Weight: 188 lb Body Mass Index (BMI) 33.3 Intake & Output: Intake and Output for Last 24 Hours 10/02/21 10/03/21 10/04/21 23:59 23:59 23:59 Intake Total 4847.20 / 4847.20 1000 / 1000 Output Total 1350 / 1350 900 / 900 Balance 3497.20 / 3497.20 100 / 100 Lab / Micro Data Result Diagrams: 10/03/21 04:00 Micro: Microbiology 10/01/21 23:45 Nasal Secretion SARS-CoV-2 Antigen (Rapid) - Final ROS Constitutional Constitutional: Reports systems reviewed and no addt'l complaints, except as documented Cardiovascular Cardiovascular: Reports systems reviewed and no addt'l complaints, except as documented Respiratory/Chest Respiratory/Chest: Reports systems reviewed and no addt'l complaints, except as documented Gastrointestinal Gastrointestinal: Reports systems reviewed and no addt'l complaints, except as documented Physical Exam Const alert, oriented x3 and no apparent distress HEENT Head and Scalp: atraumatic Resp normal respiratory effort GI soft to palpation and non-tender Bimanual Exam - Vag & Uterus: uterus non-tender Uterus Palpation: uterus fundus firm (below Umbilicus) Assessment & Plan (1) Vaginal delivery: COMMENT: SROM 40 SM laith bach PLAN: s/p PPD # 2 1. routine post delivery care 2. breast feeding- support given 3. rh neg- give rhogam PRN 4. rubella immune
== END 2021-10-04 12:04 | disposition home or self-care (01) | DRG 806 ==
LOC: WPOUT 21:51 → WP 21:51
PROVIDERS: Admitting Provider Obstetrics & Gynecology; PCP Family Medicine; Visit Provider Obstetrics & Gynecology
DX: O42.02 Full-term premature rupture of membranes, onset of labor within 24 hours of rupture (principal); Z37.0 Single live birth; O99.12 Other diseases of the blood and blood-forming organs and certain disorders involving the immune mechanism complicating childbirth; D69.6 Thrombocytopenia, unspecified; O70.0 First degree perineal laceration during delivery; O62.2 Other uterine inertia; O26.23 Pregnancy care for patient with recurrent pregnancy loss, third trimester; O26.893 Other specified pregnancy related conditions, third trimester; Z67.41 Type O blood, Rh negative; Z14.8 Genetic carrier of other disease; Z3A.40 40 weeks gestation of pregnancy; Z86.16 Personal history of COVID-19; Z79.82 Long term (current) use of aspirin
CPT/HCPCS: 59025; 59050; 84112; 85025; 85461; 86850; 86900; 86901; 87426; 90384; 99218; J7120; A4216; G0378; J2405; J2790

== ENCOUNTER 2021-11-15 10:44 | Outpatient (CLI) | payer BC, SELFPAY ==
[2021-11-15 10:59] LABS: Absolute Lymphocyte Count 1.78 X10^3/uL (0.83-4.51); Absolute Neutrophil Count 1.9 X10^3/uL (2.0-7.7); Basophil# 0.03 X10^3/uL; Basophil% 0.7 % (0-1); Eosinophil# 0.14 X10^3/uL; Eosinophils% 3.3 % (0-5); Hematocrit 37.4 % (37-47); Hemoglobin 12.7 g/dL (12.0-15.0); Lymphocyte # 1.78 X10^3/ul (0.83-4.51); Lymphocyte % 42.3 % (19-41); Mean Corpuscular Hgb 29.8 pg (27.0-32.0); Mean Corpuscular Volume 87.8 fL (81-99); Mean Platelet Vol. 9.6 fl (6.2-12.0); Monocyte# 0.33 X10^3/uL; Monocyte% 7.8 % (0-10); NRBC Flagged by Analyzer 0 % (0-5); Neutrophil # 1.92 X10^3/uL (2.7-7.7); Neutrophil % 45.7 % (47-70); Platelet Count 166 K/mm3 (150-450); RBC Distribution Width CV 11.5 % (11.6-14.6); RBC Distribution Width SD 37.2 fl (35.1-43.9); Red Blood Count 4.26 M/mm3 (4.2-5.4); White Blood Count 4.2 K/mm3 (4.4-11.0)
== END 2021-11-15 23:59 | disposition home or self-care (01) ==
LOC: PAVLAB 10:44
PROVIDERS: PCP Family Medicine; Referring Provider Obstetrics & Gynecology; Visit Provider Obstetrics & Gynecology
DX: D69.6 Thrombocytopenia, unspecified (principal)
CPT/HCPCS: 36415; 85025

== ENCOUNTER → 2022-09-02 | Outpatient (CLI) | payer BC, SELFPAY ==
[2022-09-02 18:14] LABS: Mucous, Urine 0 SEEN /hpf (<or=2+); Squamous Epithelial Cells - UA 0 SEEN /hpf (5-10)
[2022-09-02 18:32] LABS: Color, Urine Yellow (Yellow); Glucose, Dipstick Normal (Normal); Ketone-Dipstick 50 mg/dl (Negative); Leukocyte Esterase-Dipstick 500 /ul (Negative); Nitrite-Dipstick Negative (Negative); Occult Blood-Urine 10 /ul (Negative); Protein-Dipstick 30 mg/dl (Negative); Specific Gravity, Urine 1.005 (1.002-1.030); Urine Bilirubin Dipstick Negative (Negative); Urine Clarity Clear (Clear); Urine Urobilinogen Normal (Normal); Urine pH 6.5 (5.0 - 8.0)
[2022-09-02 18:44] LABS: Bacteria 2+ /hpf (None Seen); Red Blood Cells-Urine 0-5 SEEN /hpf (0-5); White Blood Cells 50-100 SEEN /hpf (0-5)
== END | disposition home or self-care (01) ==
PROVIDERS: PCP Family Medicine; Visit Provider Physician Assistant
DX: R10.9 Unspecified abdominal pain (principal)
CPT/HCPCS: 81001; 87077; 87086; 87088; 87186

== ENCOUNTER → 2022-09-12 | Outpatient (CLI) | payer BC, SELFPAY | END | disposition home or self-care (01) | LOC: LABSPEC 17:58 | PROVIDERS: PCP Family Medicine; Visit Provider Obstetrics & Gynecology | DX: N39.0 Urinary tract infection, site not specified (principal); R31.9 Hematuria, unspecified | CPT/HCPCS: 87086 ==

== ENCOUNTER → 2022-09-16 | Outpatient (CLI) | payer BC, SELFPAY ==
[2022-09-17 22:06] LABS: Chlamydia By Nucleic Acid AMP Negative (Negative)
[2022-09-17 22:12] LABS: Gonococcus By Nucleic Acid AMP Negative (Negative)
== END | disposition home or self-care (01) ==
PROVIDERS: PCP Family Medicine; Referring Provider Obstetrics & Gynecology; Visit Provider Obstetrics & Gynecology
DX: Z34.90 Encounter for supervision of normal pregnancy, unspecified, unspecified trimester (principal)
CPT/HCPCS: 87086; 87491; 87591

== ENCOUNTER → 2022-10-01 | Outpatient (CLI) | payer OTHER, SELFPAY ==
[2022-10-01 09:12] LABS: Absolute Neutrophil Count 2.7 X10^3/uL (2.0-7.7); Basophil# 0.04 X10^3/uL; Basophil% 0.8 % (0-1); Eosinophils% 2.1 % (0-5); Hematocrit 35.6 % (37-47); Hemoglobin 12.2 g/dL (12.0-15.0); Lymphocyte % 33.4 % (19-41); Mean Corp Hgb Conc 34.3 g/dL (32-36); Mean Corpuscular Hgb 28.8 pg (27.0-32.0); Mean Corpuscular Volume 84.2 fL (81-99); Mean Platelet Vol. 10.2 fl (6.2-12.0); Monocyte# 0.31 X10^3/uL; Monocyte% 6.5 % (0-10); NRBC Flagged by Analyzer 0 % (0-5); Neutrophil # 2.73 X10^3/uL (2.7-7.7); Platelet Count 153 K/mm3 (150-450); RBC Distribution Width SD 36.5 fl (35.1-43.9); Red Blood Count 4.23 M/mm3 (4.2-5.4); White Blood Count 4.8 K/mm3 (4.4-11.0)
[2022-10-01 10:16] LABS: HIV - WCH Non-Reactive (Nonreactive); Hepatitis B Surface Antigen Non-Reactive (Nonreactive); Hepatitis C Antibody Non-Reactive (Nonreactive); Rubella IgG Reactive (Nonreactive); Syphilis Antibodies Non-reactive
== END | disposition home or self-care (01) ==
LOC: PAVLAB 08:54
PROVIDERS: PCP Family Medicine; Referring Provider Obstetrics & Gynecology; Visit Provider Obstetrics & Gynecology
DX: Z34.90 Encounter for supervision of normal pregnancy, unspecified, unspecified trimester (principal)
CPT/HCPCS: 36415; 85025; 86703; 86762; 86780; 86803; 86850; 86900; 86901; 87340

== ENCOUNTER → 2023-01-21 | Outpatient (CLI) | payer OTHER, SELFPAY ==
--- NOTE | 2023-01-21 12:32 | US_ITS ---
STUDY: SECOND AND THIRD TRIMESTER OBSTETRICAL ULTRASOUND - LIMITED REASON FOR EXAM: Female, 27 years old placental abnormality LMP: PRIOR ULTRASOUND: None. TECHNIQUE: Transabdominal TECHNICAL QUALITY: Adequate. FINDINGS: There is a single intrauterine fetus. The fetus is in a breech presentation. There is demonstrated cardiac activity with a heart rate of 140 bpm. There is a normal amniotic fluid volume.. The placenta is anterior and fundal . Small placental lakes are noted. There are Grade 0 placental changes. The cervix measures 3.8 cm in length. BIOMETRY: BPD: 5.88 cm: 24 weeks, 0 days HC: 22.79 cm: 24 weeks, 6 days AC: 20.32 cm: 24 weeks, 6 days FL: 4.23 cm: 23 weeks, 6 days Age by LMP: 24 weeks, 4 days. RONEY by LMP: May 09, 2023. age by current US: 24 weeks, 3 days. RONEY by current US: May 10, 2023. Estimated weight: 698 grams, +/- 105 grams, 35 percentile. US/OB Limited With Biometrics IMPRESSION: Viable intrauterine gestation gestation approximately 24-25 weeks gestational age Persistent small placental lakes of uncertain etiology or clinical significance. Recommend clinical correlation and follow-up studies if clinically warranted. Electronically Signed: Germán Edward MD at 17:22 EDT ,
== END | disposition home or self-care (01) ==
PROVIDERS: PCP Family Medicine; Referring Provider Advanced Practice Midwife; Visit Provider Advanced Practice Midwife
DX: O43.109 Malformation of placenta, unspecified, unspecified trimester (principal); Z3A.00 Weeks of gestation of pregnancy not specified
CPT/HCPCS: 76816

== ENCOUNTER → 2023-02-18 | Outpatient (CLI) | payer OTHER, SELFPAY ==
[2023-02-18 13:03] LABS: Absolute Lymphocyte Count 1.45 X10^3/uL (0.83-4.51); Basophil# 0.04 X10^3/uL; Basophil% 0.7 % (0-1); Eosinophil# 0.08 X10^3/uL; Eosinophils% 1.3 % (0-5); Hematocrit 33.6 % (37-47); Hemoglobin 11.4 g/dL (12.0-15.0); Lymphocyte # 1.45 X10^3/ul (0.83-4.51); Lymphocyte % 23.8 % (19-41); Mean Corp Hgb Conc 33.9 g/dL (32-36); Mean Corpuscular Hgb 29.9 pg (27.0-32.0); Mean Corpuscular Volume 88.2 fL (81-99); Mean Platelet Vol. 10.5 fl (6.2-12.0); Monocyte# 0.43 X10^3/uL; Monocyte% 7.1 % (0-10); NRBC Flagged by Analyzer 0 % (0-5); Neutrophil # 4.04 X10^3/uL (2.7-7.7); Neutrophil % 66.3 % (47-70); Platelet Count 139 K/mm3 (150-450); RBC Distribution Width CV 12.2 % (11.6-14.6); RBC Distribution Width SD 38.8 fl (35.1-43.9); Red Blood Count 3.81 M/mm3 (4.2-5.4); White Blood Count 6.1 K/mm3 (4.4-11.0)
--- NOTE | 2023-02-18 13:04 | US_ITS ---
STUDY: SECOND AND THIRD TRIMESTER OBSTETRICAL ULTRASOUND - LIMITED REASON FOR EXAM: Female, 27 years old. Growth known placental lakes. LMP: August 02, 2022. PRIOR ULTRASOUND: January 21, 2023. TECHNIQUE: Transabdominal TECHNICAL QUALITY: Adequate. FINDINGS: There is a single intrauterine fetus. The fetus is in a cephalic presentation. There is demonstrated cardiac activity with a heart rate of 141 bpm. There is a normal amniotic fluid volume. The largest amniotic fluid pocket measures 5.5 to cm. The amniotic fluid index (MATTEO) is 14.99 cm. The placenta is anterior in location and is not low lying. There are Grade 0 placental changes. The cervix measures 3.4 cm cm in length. BIOMETRY: BPD: 7.02 cm: 28 weeks, 1 days HC: 26.18 cm: 28 weeks, 3 days AC: 24.96 cm: 29 weeks, 1 days FL: 5.19 cm: 27 weeks, 5 days Age by LMP: 28 weeks, 4 days. RONEY by LMP: May 09, 2023.. age by prior US: 28 weeks, 3 days. RONEY by prior US: May 10, 2023. age by current US: 28 weeks, 2 days. RONEY by current US: May 11, 2023. Estimated weight: 1258 grams, +/- 189 grams, 39 percentile. Gender: Indeterminant US/OB Limited With Biometrics IMPRESSION: 1. Live single intrauterine at 28 weeks, 2 days. RONEY is May 11, 2023. There is adequate interval growth since the initial ultrasound. 2. EFW 1258 g. 3. MATTEO of 14.99 cm. 4. Anterior grade 0 placenta. 5. Vertex presentation. Electronically Signed: Gerald Mcmahon DO at 21:36 EDT Reading Location ID and State: [address] [place] [address] Tel [phone], Service support ,
[2023-02-18 13:28] LABS: Glucose Challenge Gest 1H 50g 106 mg/dL (70-140)
[2023-02-18 14:07] LABS: HIV - WCH Non-Reactive (Nonreactive); Syphilis Antibodies Non-reactive
== END | disposition home or self-care (01) ==
PROVIDERS: PCP Family Medicine; Referring Provider Advanced Practice Midwife; Visit Provider Advanced Practice Midwife
DX: O43.103 Malformation of placenta, unspecified, third trimester (principal); O26.893 Other specified pregnancy related conditions, third trimester; Z67.91 Unspecified blood type, Rh negative; Z13.1 Encounter for screening for diabetes mellitus; Z3A.28 28 weeks gestation of pregnancy
CPT/HCPCS: 36415; 76816; 82950; 85025; 86703; 86780; 86850; 86900; 86901

== ENCOUNTER → 2023-03-18 | Outpatient (CLI) | payer OTHER, SELFPAY ==
[2023-03-18 11:41] LABS: Absolute Lymphocyte Count 1.52 X10^3/uL (0.83-4.51); Absolute Neutrophil Count 4.6 X10^3/uL (2.0-7.7); Basophil# 0.03 X10^3/uL; Basophil% 0.4 % (0-1); Eosinophils% 1.5 % (0-5); Hematocrit 35.7 % (37-47); Hemoglobin 11.8 g/dL (12.0-15.0); Lymphocyte # 1.52 X10^3/ul (0.83-4.51); Lymphocyte % 22.3 % (19-41); Mean Corp Hgb Conc 33.1 g/dL (32-36); Mean Corpuscular Hgb 29.5 pg (27.0-32.0); Mean Corpuscular Volume 89.3 fL (81-99); Mean Platelet Vol. 10.7 fl (6.2-12.0); Monocyte% 7.3 % (0-10); NRBC Flagged by Analyzer 0 % (0-5); Neutrophil # 4.63 X10^3/uL (2.7-7.7); Neutrophil % 68.1 % (47-70); Platelet Count 134 K/mm3 (150-450); RBC Distribution Width CV 12.1 % (11.6-14.6); RBC Distribution Width SD 39.7 fl (35.1-43.9); White Blood Count 6.8 K/mm3 (4.4-11.0)
== END | disposition home or self-care (01) ==
PROVIDERS: PCP Family Medicine; Referring Provider Nurse Practitioner Women's Health; Visit Provider Nurse Practitioner Women's Health
DX: O99.119 Other diseases of the blood and blood-forming organs and certain disorders involving the immune mechanism complicating pregnancy, unspecified trimester (principal); D69.6 Thrombocytopenia, unspecified; Z3A.00 Weeks of gestation of pregnancy not specified
CPT/HCPCS: 36415; 85025

== ENCOUNTER → 2023-03-18 | Outpatient (CLI) | payer OTHER, SELFPAY ==
--- NOTE | 2023-03-18 09:59 | US_ITS ---
STUDY: SECOND AND THIRD TRIMESTER OBSTETRICAL ULTRASOUND REASON FOR EXAM: Female, 27 years old placental abnormality TECHNIQUE: Transabdominal PRIOR ULTRASOUND: 02/18/2023 FINDINGS: There is a single intrauterine fetus. The fetus is in a cephalic presentation. There is demonstrated cardiac activity with a heart rate of 147 bpm. There is a normal amniotic fluid volume. The largest amniotic fluid pocket measures 7 cm. The amniotic fluid index (MATTEO) is 17 cm. The placenta is anterior and not low-lying. There are few placental lakes. There are Grade 0 placental changes. The cervix measures 4.6 cm in length and closed. The adnexal regions are not visualized. BPD: 8 cm = 32 weeks, 2 day(s) HC: 29.4 cm = 32 weeks, 3 day(s) AC: 29.2 cm = 33 weeks, 1 day(s) FL: 6.1 cm = 31 weeks, 4 day(s) EGA by ultrasound: 32 weeks 2 day(s) RONEY by ultrasound: 05/11/2023 Estimated weight: 2017 grams Weight percentile: 42% US/OB Limited With Biometrics IMPRESSION: Living intrauterine with estimated gestational age of 32 weeks and 2 days.. Few placental lakes which can be a normal finding. Electronically Signed: Ren Villarreal MD at 22:31 EDT ,
== END | disposition home or self-care (01) ==
LOC: US 09:57
PROVIDERS: PCP Family Medicine; Referring Provider Advanced Practice Midwife; Visit Provider Advanced Practice Midwife
DX: O43.109 Malformation of placenta, unspecified, unspecified trimester (principal); Z3A.00 Weeks of gestation of pregnancy not specified
CPT/HCPCS: 76816

== ENCOUNTER 2023-04-10 15:09 | Outpatient (CLI) | payer OTHER, SELFPAY ==
[2023-04-10 17:35] VITALS: BP 134/83; PULSE 106; TEMP 36.6
[2023-04-10 17:41] VITALS: BMI 30.4
[2023-04-10 19:06] LABS: Bacteria 0 SEEN /hpf (None Seen); Mucous, Urine 0 SEEN /hpf (<or=2+); Red Blood Cells-Urine 0 SEEN /hpf (0-5); Squamous Epithelial Cells - UA 0 SEEN /hpf (5-10); White Blood Cells 0 SEEN /hpf (0-5)
[2023-04-10 19:07] LABS: Color, Urine Yellow (Yellow); Glucose, Dipstick Normal (Normal); Ketone-Dipstick Negative (Negative); Leukocyte Esterase-Dipstick 25 /ul (Negative); Nitrite-Dipstick Negative (Negative); Occult Blood-Urine Negative /ul (Negative); Protein-Dipstick Negative (Negative); Urine Bilirubin Dipstick Negative (Negative); Urine Clarity Clear (Clear); Urine Urobilinogen Normal (Normal)
[2023-04-10 19:24] VITALS: BP 129/82; PULSE 106
[2023-04-10 19:25] VITALS: TEMP 36.9
--- NOTE | 2023-04-10 19:34 | OB.TRI.PN ---
Progress Notes Date of Service: 04/10/23 Progress Note: Patient presents for triage evaluation secondary to contractions FHT: 150 Moderate variability reactive no decelerations category I tracing [place]: mild Contractions-resolved with oral hydration Assessment and plan: Reactive NST, reassuring maternal and status patient discharged to home to follow-up at next appointment. Urine neg for UTI. See problem list details for additional plan information. Laboratory Studies: Laboratory Tests 04/10/23 Range/Units 18:50 Urine Color Yellow (Yellow) Urine Clarity Clear (Clear) Urine pH 7.0 (5.0 - 8.0) Ur Specific Welch 1.010 (1.002-1.030) Urine Protein Negative (Negative) mg/dl Urine Glucose (UA) Normal (Normal) mg/dl Urine Ketones Negative (Negative) mg/dl Urine Occult Blood Negative (Negative) /ul Urine Nitrite Negative (Negative) Urine Bilirubin Negative (Negative) mg/dL Urine Urobilinogen Normal (Normal) mg/dl Ur Leukocyte Esterase 25 H (Negative) /ul Urine RBC 0 SEEN (0-5) /hpf Urine WBC 0 SEEN (0-5) /hpf Ur Squamous Epith Cells 0 SEEN (5-10) /hpf Urine Bacteria 0 SEEN (None Seen) /hpf Urine Mucus 0 SEEN (<or=2+) /hpf Charges/Coding Multi Select Codes Urinary/Genital Urinary/Genital CPT Codes: 84401-07 non-stress test Interp Assessment & Plan (1) contractions: COMMENT: 04/10- 3, urine neg, resolved with oral hydration D/C home PLAN: Urine culture-neg SVE 3 oral hydration d/c home (2) Gestational thrombocytopenia: QUALIFIERS: Trimester: third trimester Qualified Code(s): O99.113 - Other diseases of the blood and blood-forming organs and certain disorders involving the immune mechanism complicating , third trimester; D69.6 - Thrombocytopenia, unspecified COMMENT: 02/18:139. 03/18:135. Rpt 36wk (3) Placental abnormality: QUALIFIERS: Trimester: first trimester Qualified Code(s): O43.101 - Malformation of placenta, unspecified, first trimester COMMENT: lakes- growth US q4 weeks-39% at 28 weeks, 41% at 32 weeks (4) Rh negative state in antepartum period: COMMENT: Rhogam @28 weeks and PRN for Bleeding (5) History of miscarriage, currently : COMMENT: 2 Miscarriages in 2021 (6) Supervision of high risk , antepartum: COMMENT: JYOTSNA, RONEY 05/09/23, LYNDA Macdonald, Bam (7) : QUALIFIERS: Weeks of gestation: 30 weeks Qualified Code(s): Z3A.30 - 30 weeks gestation of COMMENT: discussed genetic & carrier testing
== END 2023-04-10 19:50 | disposition home or self-care (01) ==
LOC: WPOUT 17:30 → WP 17:30
PROVIDERS: PCP Family Medicine; Referring Provider Advanced Practice Midwife; Visit Provider Advanced Practice Midwife
DX: O60.03 Preterm labor without delivery, third trimester (principal); D69.6 Thrombocytopenia, unspecified; O99.113 Other diseases of the blood and blood-forming organs and certain disorders involving the immune mechanism complicating pregnancy, third trimester; O43.103 Malformation of placenta, unspecified, third trimester; O26.893 Other specified pregnancy related conditions, third trimester; Z67.90 Unspecified blood type, Rh positive; O26.23 Pregnancy care for patient with recurrent pregnancy loss, third trimester; Z3A.30 30 weeks gestation of pregnancy
CPT/HCPCS: 59025; 59050; 81001; 99221; G0378

== ENCOUNTER → 2023-04-15 | Outpatient (CLI) | payer OTHER, SELFPAY ==
--- NOTE | 2023-04-15 09:47 | US_ITS ---
INDICATION: growth, placental abnormality EXAMINATION: Ultrasound US OB Limited 1 Or More Fetus TECHNIQUE: transabdominal pelvic ultrasound was performed. Grayscale, spectral waveform, and color flow Doppler evaluation of the adnexa. COMPARISON: 03/18/2023 LMP: 08/02/2022 Beta-hCG: Unknown. Provided EGA: 36 weeks 4 days FINDINGS: INTRAUTERINE GESTATION(s): Single. ESTIMATED GESTATIONAL AGE: 36 weeks 2 days ESTIMATED DUE DATE (RONEY): 05/11/2023 HEART MOTION is 143 bpm. AMNIOTIC FLUID INDEX (MATTEO): 15.2 cm ESTIMATED WEIGHT: 2984 g or 6 lbs. 9 oz. Percentile 55th%. BIOPHYSICAL PROFILE (BPP): Not assessed. PRESENTATION: Cephalic PLACENTA: Anterior. Multiple placental lakes with minimal decrease in the size of the largest placental lara, currently 2.8 cm diameter. CERVIX: The cervix is not visualized. US/OB Limited With Biometrics IMPRESSION: Single live intrauterine of 36 weeks 2 days. Concordant interval growth. Electronically Signed: Travis Thompson MD at 16:17 EDT ,
[2023-04-15 11:48] LABS: Absolute Neutrophil Count 4.2 X10^3/uL (2.0-7.7); Basophil# 0.02 X10^3/uL; Basophil% 0.3 % (0-1); Eosinophil# 0.04 X10^3/uL; Eosinophils% 0.6 % (0-5); Hematocrit 35.4 % (37-47); Hemoglobin 11.8 g/dL (12.0-15.0); Lymphocyte % 27.9 % (19-41); Mean Corp Hgb Conc 33.3 g/dL (32-36); Mean Corpuscular Hgb 29.7 pg (27.0-32.0); Mean Corpuscular Volume 89.2 fL (81-99); Mean Platelet Vol. 10.9 fl (6.2-12.0); Monocyte# 0.57 X10^3/uL; Monocyte% 8.4 % (0-10); NRBC Flagged by Analyzer 0 % (0-5); Neutrophil # 4.23 X10^3/uL (2.7-7.7); Neutrophil % 62.1 % (47-70); Platelet Count 132 K/mm3 (150-450); RBC Distribution Width CV 12.3 % (11.6-14.6); RBC Distribution Width SD 40.2 fl (35.1-43.9); Red Blood Count 3.97 M/mm3 (4.2-5.4); White Blood Count 6.8 K/mm3 (4.4-11.0)
== END | disposition home or self-care (01) ==
PROVIDERS: Obstetrics & Gynecology; PCP Family Medicine; Referring Provider Advanced Practice Midwife; Visit Provider Advanced Practice Midwife
DX: O43.103 Malformation of placenta, unspecified, third trimester (principal); D69.6 Thrombocytopenia, unspecified; O99.113 Other diseases of the blood and blood-forming organs and certain disorders involving the immune mechanism complicating pregnancy, third trimester; Z3A.36 36 weeks gestation of pregnancy
CPT/HCPCS: 36415; 76816; 85025; 87081

== ENCOUNTER 2023-04-28 02:35 | Inpatient (IN) | payer OTHER, SELFPAY ==
[2023-04-28] VITALS (77 sets, daily range): BP systolic 109–145; BP diastolic 55–85; PULSE 70–116; RESP 15–18; TEMP 36.3–37; O2SAT 96–100; BMI 31.2
[2023-04-28] MEDS: LACTATED RINGERS 500 ML 999 ML IV (02:45)
[2023-04-28 02:59] LABS: Absolute Lymphocyte Count 1.74 X10^3/uL (0.83-4.51); Absolute Neutrophil Count 6.3 X10^3/uL (2.0-7.7); Basophil# 0.03 X10^3/uL; Basophil% 0.3 % (0-1); Eosinophil# 0.06 X10^3/uL; Eosinophils% 0.7 % (0-5); Hematocrit 35.5 % (37-47); Hemoglobin 11.8 g/dL (12.0-15.0); Lymphocyte # 1.74 X10^3/ul (0.83-4.51); Mean Corp Hgb Conc 33.2 g/dL (32-36); Mean Corpuscular Hgb 29.4 pg (27.0-32.0); Mean Corpuscular Volume 88.5 fL (81-99); Mean Platelet Vol. 11.5 fl (6.2-12.0); Monocyte# 0.51 X10^3/uL; Monocyte% 5.9 % (0-10); NRBC Flagged by Analyzer 0 % (0-5); Neutrophil # 6.31 X10^3/uL (2.7-7.7); Neutrophil % 72.6 % (47-70); Platelet Count 123 K/mm3 (150-450); RBC Distribution Width CV 12.2 % (11.6-14.6); RBC Distribution Width SD 39.4 fl (35.1-43.9); Red Blood Count 4.01 M/mm3 (4.2-5.4); White Blood Count 8.7 K/mm3 (4.4-11.0)
--- NOTE | 2023-04-28 03:09 | HP.PCM.OB_ITS ---
HPI - General General Date of Admission: 04/28/23 Date of Service: 04/28/23 HPI Narrative HEATHER GEURRERO, is a 28 F , 38.3 weeks, who presents in active labor Maternal Data Information RONEY Calculator Estimated Delivery Date Method Current WG Current Estimate 05/09/23 Ultrasound #2 38w 3d Other Estimates 04/30/23 LMP (Certain) 39w 5d 05/10/23 Ultrasound #1 38w 2d Final RONEY: 05/09/23 Final RONEY Source: US >20 weeks Gestational age: 38.3 weeks PFSH PFSH Medical History (Updated 04/28/23 @ 03:12 by Jeanine Knight CNM) Biotinidase deficiency Galactosemia Thrombocytopenia affecting Urinary tract infection with hematuria Home Medications PNV no.151-iron 27 mg-folic 800 mcg-omega3 260 [id number]-[id number]-fish capsule cap PO 09/10/22 [History Last Taken Unknown] ascorbic acid (vitamin C) 250 mg tablet (Vitamin C) 250 mg PO DAILY 04/10/23 [History Last Taken 04/10/23 08:00 250 mg] omega-3 fatty acids 600 mg PO DAILY 04/10/23 [History Last Taken 04/10/23 08:00 600 mg] Allergy/AdvReac Type Severity Reaction Status Date / Time No Known Allergies Allergy Verified 04/22/23 09:59 Family History Grandfather Cancer unknown type Grandmother Hypertension Ovarian cancer Paternal Grandfather Hypertension Grandmother Asthma Social History adopted: No household members: spouse and children number of children: 1 current occupational status: unemployed current occupation: [employer] pets and animals: Yes pets and animals: dog(s) history of recent travel: No sexually active: Yes Smoking Status: Never smoker alcohol intake: never substance use type: does not use well-balanced diet: daily or most days caffeine: No eating out: rarely or never during the past year weight has: decreased > 10 lbs what type of physical activity do you participate in: none gabriela/adventism: Worship seatbelt use: always do you feel safe at home: Yes additional 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 Date Name GA/Weeks Outcome Route Bth Weight Infant Gen Labor Lgth Anesthesia Del Locatn Provider FOB Unknown 11/2020 spontaneous Unknown 12/2020 spontaneous Unknown 08/2021 Renae 40 live - full term 9lbs 11oz Male 23 epidural [facility] SM Delivery Date: Last Updated by: Chacha Farmer SROM 40w SM Renae Visit Details Expected Delivery Route/Plan Labor Preferences- CB/BF classes: no labor support person: Bam labor intervention preferences: [] pain management options preferred: epidural cut cord/dad catch: cord : yes PP control planned: discussed discussed possible routes of delivery and associated risks: [] special requests: [] Plans Covid status: unvaccinated Flu vaccine: no Tdap vaccine: given Rhogam: given 02/18 LARC form signed: done movement and labor precautions reviewed. Problem list reviewed and updated with the most current plan of care details and appropriate orders placed. Relevant counseling for the gestational age provided. Continue routine care and follow up unless otherwise noted in visit notes/problem list details OB Flowsheet Initial Weight: Not Recorded Date -?-?-?-?-?-?-?-?-?-?-?-?- EGA Weight BP Urine Prot -?-?-?-?-?-?-?-?-?-?-?-?- Glucose FHR FuHt Pres Dilation -?-?-?-?-?-?-?-?-?-?-?-?- Effaced St Visit Note 09/16/22 -?-?-?-?-?-?-?-?-?-?-?-?- 6w 3d 143 lb 123/73 -?-?-?-?-?-?-?-?-?-?-?-?- 120 -?-?-?-?-?-?-?-?-?-?-?-?- SM- CRL 4 mm livan ble to get clear due date but possible 05/10/23 based on MSD 10/01/22 -?-?-?-?-?-?-?-?-?-?-?-?- 8w 4d 146 lb 122/75 Negative -?-?-?-?-?-?-?-?-?-?-?-?- Negative 150 -?-?-?-?-?-?-?-?-?-?-?-?- SM- CRL 1.75cm e dd 05/0910/29/22 -?-?-?-?-?-?-?-?-?-?-?-?- 12w 4d 148 lb 2 oz 132/72 Nega tive -?-?-?-?-?-?-?-?-?-?-?-?- Negative 157 -?-?-?-?-?-?-?-?-?-?-?-?- JV- no complaint s today. anatomy scan ordered. 11/25/22 -?-?-?-?-?-?-?-?-?-?-?-?- 16w 3d 149 lb 132/70 Negative -?-?-?-?-?-?-?-?-?-?-?-?- Negative 155 -?-?-?-?-?-?-?-?-?-?-?-?- MH-No VB. Doing well. MFM anatomy US 12/1212/24/22 -?-?-?-?-?-?-?-?-?-?-?-?- 20w 4d 157 lb 115/72 Negative -?-?-?-?-?-?-?-?-?-?-?-?- Negative 155 20 -?-?-?-?-?-?-?-?-?-?-?-?- KW- +FM. no vb/c ramping. no concerns. discussed placental lakes- US q 4 weeks 01/21/23 -?-?-?-?-?-?-?-?-?-?-?-?- 24w 4d 161 lb 2 oz 102/65 Nega tive -?-?-?-?-?-?-?-?-?-?-?-?- Negative 150 25 -?-?-?-?-?-?-?-?-?-?-?-?- KW- + FM. no vb/ lof/ctx. US today for lakes. 28 week labs discussed. 02/18/23 -?-?-?-?-?-?-?-?-?-?-?-?- 28w 4d 165 lb 130/72 -?-?-?-?-?-?-?-?-?-?-?-?- 156 28 -?-?-?-?-?-?-?-?-?-?-?-?- JV- no lof, vagi nal bleeding, dec fm. has slight dec in plts today. will recheck in 4 weeks. gct is normal. ultrasound done today is pending. 03/04/23 -?-?-?-?-?-?-?-?-?-?-?-?- 30w 4d 165 lb 6 oz 106/68 Nega tive -?-?-?-?-?-?--?-?-?-?-?-?- Negative 140 31 -?-?-?-?-?-?-?-?-?-?-?-?- KW-+FM. no vb/lo f/ctx. CBC next visit. 39% per growth US 03/18/23 -?-?-?-?-?-?-?-?-?-?-?-?- 32w 4d 169 lb 118/74 Negative -?-?-?-?-?-?-?-?-?-?-?-?- Negative 146 32 -?-?-?-?-?-?-?-?-?-?-?-?- -No VB, LOF. G ood FM. CBC and growth US today. 04/01/23 -?-?-?-?-?-?-?-?-?-?-?-?- 34w 4d 171 lb 4 oz 117/71 Nega tive -?-?-?-?-?-?-?-?-?-?-?-?- Negative 140 35 -?-?-?-?-?-?-?-?--?-?-?-?- SM- no vb lof go od fm no rgular ctx 04/15/23 -?-?-?-?-?-?-?-?-?-?-?-?- 36w 4d 175 lb 6 oz 111/71 Nega tive -?-?-?-?-?-?-?-?-?-?-?-?- Negative 140 37 -?-?-?-?-?-?-?-?-?-?-?-?- SM- no vb lof go od fm n oregular ctx gbs done SM- no vb lof good fm no reg ular ctx gbs done 04/22/23 -?-?-?-?--?-?-?-?-?-?-?-?- 37w 4d 177 lb 2 oz 108/74 Nega tive -?-?-?-?-?-?-?-?-?-?-?-?- Negative 140 37 2 -?-?-?-?-?-?-?-?-?-?-?-?- 70 -2 KW- no vb/ lof. some contractions. good fm. labor precautions NST FHR Rate Baby A Baseline: 150 Variability:: Moderate Accelerations:: 15 x 15 Decelerations:: None NST Reactive:: Yes FHR Category:: Category I Uterine Activity:: 3-5 minutes ROS Constitutional Constitutional: Denies change in weight, fatigue, fever(s), headache(s), poor appetite or weakness Eyes Eyes: Denies blurry vision, change in vision, floaters, seeing flashes or spots in vision ENT HEENT: Denies dizziness, headache(s), loss taste/smell or sore throat Cardiovascular Cardiovascular: Denies chest pain, dizziness, dyspnea, irregular heart rhythm, lightheadedness, palpitations or rapid heart rate Respiratory/Chest Respiratory/Chest: Denies change in mental status, chest tightness, cough, dyspnea or breast pain Gastrointestinal Gastrointestinal: Denies anorexia, chewing difficulty, constipation, diarrhea or weight changes Genitourinary Genitourinary: Denies difficulty urinating, dysuria, flank pain, genital pain, urinary frequency or urinary urgency Musculoskeletal Musculoskeletal: Denies back pain, difficulty walking, extremity pain, joint pain, muscle cramps or muscle weakness Integumentary Integumentary: Denies lesions or unusual bruising Neurologic Neurologic: Denies abnormal movements, abnormal speech, dizziness, numbness, seizure-like activity, syncope or weakness Psychiatric Psychiatric: Denies behavioral changes, change in appetite, confusion, depression, homicidal ideation, suicidal ideation or suicidal thoughts Endocrine Endocrinology: Denies excessive sweating, polydipsia or polyuria Hematologic/Lymphatic Hematologic/Lymphatic: Denies anemia Allergic/Immunologic Allergic/Immunologic: Denies itchy eyes, lip swelling, throat swelling, tongue swelling or wheezing Vital Signs Vital Signs Vital Signs: 04/28/23 02:24 04/28/23 02:26 04/28/23 02:26 Temperature Temperature Source Temporal Pulse Rate 95 Blood Pressure 136/83 H BP Systolic 136 BP Diastolic 83 04/28/23 02:24 Temperature 97.3 F L Temperature Source Pulse Rate Blood Pressure BP Systolic BP Diastolic Weight Weight: 176 lb 6.4 oz Body Mass Index (BMI) 31.2 Physical Exam Const alert, oriented x3 and no apparent distress General Appearance: cooperative Orientation / Consciousness: awake HEENT normocephalic Neck full ROM Lymph Lymphatic: no lymphadenopathy noted Chest inspection of chest normal Resp normal respiratory effort and normal air movement Effort and Inspection: able to speak in complete sentences and symmetric chest movement GI soft to palpation and non-tender Inspection: gravid Palpation: soft; Negative for tender external exam normal Back/Spine normal to inspection Extremity normal to inspection and full ROM Skin no rashes or lesions noted Psych mental status grossly normal Appearance: grossly normal Speech: normal speech Labs Labs Labs: Blood Type O NEGATIVE Antibody Screen NEGATIVE Hct 35.5 % (37-47) L Hgb 11.8 g/dL (12.0-15.0) L Obstetrics US Syphilis Total Ab Non-reactive Rubella IgG Antibody Reactive (Nonreactive) Hep Bs Antigen Non-Reactive (Nonreactive) Chlamydia DNA (AUDRA) Negative (Negative) Neisseria gonorrhoeae DNA (AUDRA) Negative (Negative) HIV 1&2 Antibody Non-Reactive (Nonreactive) Glucose 1 Hr 50 gm 106 mg/dL (70-140) Rhogam given: Yes Assessment & Plan (1) Gestational thrombocytopenia: QUALIFIERS: Trimester: third trimester Qualified Code(s): O99.113 - Other diseases of the blood and blood-forming organs and certain disorders involving the immune mechanism complicating , third trimester; D69.6 - Thrombocytopenia, unspecified COMMENT: 02/18:139. 7/25:135. Rpt 36wk (2) Placental abnormality: QUALIFIERS: Trimester: first trimester Qualified Code(s): O43.101 - Malformation of placenta, unspecified, first trimester COMMENT: lakes- growth US q4 weeks-39% at 28 weeks, 41% at 32 weeks, 55% at 36 weeks (3) Rh negative state in antepartum period: COMMENT: Rhogam @28 weeks and PRN for Bleeding (4) History of miscarriage, currently : COMMENT: 2 Miscarriages in 2021 (5) Supervision of high risk , antepartum: COMMENT: [id number], RONEY 05/09/23, LYNDA Macdonald, Bam (6) : QUALIFIERS: Weeks of gestation: 37 weeks Qualified Code(s): Z3A.37 - 37 weeks gestation of COMMENT: GBS neg,discussed genetic & carrier testing (7) Urinary tract infection with hematuria: (8) Active labor: PLAN: Patient presents IAL, plan expectant management for , pitocin/AROM PRN if needed. Pain management: plans epidural. GBS negative. Management of any complications: thrombocytopenia I have reviewed the [facility] and made any clinically relevant updates. Charges/Coding Multi Select Codes Urinary/Genital Urinary/Genital CPT Codes: No Charge
[2023-04-28] MEDS: Lactated Ringers 1,000 ML 200 ML IV (03:15)
[2023-04-28] MEDS: fentaNYL-bupivacaine (epidural) 100 ML BAG EPIDURAL (03:49)
[2023-04-28] MEDS: Oxytocin 15 Units/NS 250ml 15 UNITS/250 ML IV.SOLN 83 UNITS IV (05:22)
[2023-04-28] MEDS: Oxytocin 10 UNITS/ML Vial IM (05:22)
--- NOTE | 2023-04-28 05:28 | EX.PCM.OBRPT ---
Assessment & Plan (1) Vaginal delivery: COMMENT: KW 38.3 IAL girl (2) Active labor: (3) Gestational thrombocytopenia: QUALIFIERS: Trimester: third trimester Qualified Code(s): O99.113 - Other diseases of the blood and blood-forming organs and certain disorders involving the immune mechanism complicating , third trimester; D69.6 - Thrombocytopenia, unspecified COMMENT: 02/18:139. 03/18:135. Rpt 36wk (4) Rh negative state in antepartum period: COMMENT: Rhogam @28 weeks and PRN for Bleeding (5) Supervision of high risk , antepartum: COMMENT: [id number], RONEY 05/09/23, PC Renae, Bam (6) History of miscarriage, currently : COMMENT: 2 Miscarriages in 2021 (7) : QUALIFIERS: Weeks of gestation: 37 weeks Qualified Code(s): Z3A.37 - 37 weeks gestation of COMMENT: GBS neg,discussed genetic & carrier testing (8) Urinary tract infection with hematuria: Maternal Data Information RONEY Calculator Estimated Delivery Date Method Current WG Current Estimate 05/09/23 Ultrasound #2 38w 3d Other Estimates 04/30/23 LMP (Certain) 39w 5d 05/10/23 Ultrasound #1 38w 2d Final RONEY: 05/09/23 Final RONEY Source: US >20 weeks Gestational age: 38.3 weeks Vaginal Delivery Maternal Presentation Maternal Presentation: Active Labor Maternal Presentation: Progressed well to 10cm dilated and made steady progress with effective maternal pushing. Delivered the head in DEMI presentation. The head was delivered atraumatically and no nuchal cord was identified. The anterior and posterior shoulders delivered without complication followed by the rest of the infant and the infant was placed on the maternal abdomen. Delayed cord clamping was employed for approximately 3 minutes. Cord was clamped and cut and gentle traction was applied to the cord and the placenta delivered spontaneously. Immediately following, it was noted to be intact with a 3 vessel cord. The perineum and vagina were inspected and noted to have no laceration. EBL was 100cc. Patient and tolerated delivery well. Apgars 8/9. Dr Wynne notified of vaginal delivery and orders reviewed. Physician agrees with current plan of care. Operative Information Date of Procedure: 04/28/23 Pre-Operative Diagnosis: See AP comments Post-Operative Diagnosis: Same Surgery / Procedure Performed: Spontaneous Vaginal Delivery benefits consulting analyst #1: Jeanine Knight Type of Anesthesia: Epidural Estimated Blood Loss: 100 Time of Delivery: 05:17 Findings Presentation: Vertex Amniotic Membrane Rupture Type: Artificial Amniotic Fluid Description: Clear Placental Delivery Description: Spontaneous Placenta Disposition: [facility] Cord Vessel Description: 3 Vessels Cord Entanglement: None Infant A Gender: Female (1 minute): 8 (5 minute): 9 Delayed Cord Clamping: Yes Post Vaginal Delivery Medications Given After Delivery: IV Pitocin and IM Pitocin Episiotomy Description: None Laceration: None Complication Complications: None Multi Select Codes Urinary/Genital Urinary/Genital CPT Codes: 46810 Vaginal Delivery [facility]
--- NOTE | 2023-04-28 05:34 | DCINST_ITS ---
Discharge Instructions Diet Discharge Diet: No restrictions Activity Discharge Activity: Return to Normal Activity May resume sexual activity in: 6-8 weeks Dressing / Incision Call your doctor if you observe: Fever of 101 or Higher, Coldness, Increased Pain, Numbness or Tingling, Change in Color, Inability to urinate, Inability to have a bowel movement, Using more than 1 pad per hour, Shortness of breath, Dizziness, Fainting spells, Swelling in the ankles, Chest pain, Increased palpitations (irregular heartbeat), Calf discomfort and Uncontrolled pain Follow Up Care Please Follow Up With: Jeanine Knight CNM When: Please call the office to schedule your follow up appointment in 6 weeks. If you had high blood pressure please call to schedule an appointment in 2 weeks. Test Results: Test results from this visit will be discussed in further detail at your follow- up appointment, if applicable. Discharge Plan Admission Admit Date/Time: 04/28/23 02:35 Attending Provider: Jeanine Knight Primary Care Provider: Ada Garcia Discharge Orders/Prescriptions Prescriptions: No Action [id number] 27 mg iron-800 mcg-260 mg capsule PO omega-3 fatty acids Capsule 600 mg PO DAILY ascorbic acid (vitamin C) [Vitamin C] 250 mg tablet 250 mg PO DAILY Referrals / Follow Up: Ada Garcia MD [Primary Care Provider] - Disposition Disposition (needs filled in before D/C Order can be placed): Home, Self Care
[2023-04-28] MEDS: Acetaminophen 500 MG Tablet 1000 MG PO (16:49)
[2023-04-29 00:10] VITALS: BP 104/57; PULSE 73; RESP 15; TEMP 36.2; O2SAT 98
[2023-04-29] MEDS: Acetaminophen 500 MG Tablet 1000 MG PO ×2 (00:20→10:38)
[2023-04-29 05:00] VITALS: BP 112/63; PULSE 81; RESP 15; TEMP 36.6; O2SAT 98
--- NOTE | 2023-04-29 06:09 | PCM.PN.OB ---
Subjective Subjective Patient doing well without complaints. Tolerating PO. Ambulating and voiding without difficulty. feeding well. Denies chest pain, shortness of breath, calf pain/swelling, fevers, chills, lightheadedness. Objective Data Objective Data Vital Signs: Vital Signs Temp Pulse Resp BP Pulse Ox O2 Del Method 97.9 F 81 15 112/63 98 Room Air 04/29/23 05:00 04/29/23 05:00 04/29/23 05:00 04/29/23 05:00 04/29/23 05:00 04/29/23 05:00 Oxygen Delivery Method Room Air Weight: 176 lb 6.4 oz Body Mass Index (BMI) 31.2 Intake & Output: Intake and Output for Last 24 Hours 04/27/23 04/28/23 04/29/23 23:59 23:59 23:59 Intake Total 1056.07 / 1056.07 Output Total 1800 / 1800 Balance -743.93 / -743.93 Lab / Micro Data 04/28/23 02:45 Labs: Laboratory Results - last 24 hr 04/28/23 02:45: Antibody Screen NEGATIVE, Antibody Identification NEGATIVE ANTIBODY PANEL 04/28/23 06:23: Antigen Identification E ANTIGEN - NEGATIVE 04/28/23 06:23: Antigen Identification LITTLE c ANTIGEN - NEGATIVE 04/28/23 08:12: Screen NEGATIVE, Baby's Blood Type O POSITIVE, Baby's DANY NEGATIVE ROS Constitutional Constitutional: Reports systems reviewed and no addt'l complaints, except as documented Cardiovascular Cardiovascular: Reports systems reviewed and no addt'l complaints, except as documented Respiratory/Chest Respiratory/Chest: Reports systems reviewed and no addt'l complaints, except as documented Gastrointestinal Gastrointestinal: Reports systems reviewed and no addt'l complaints, except as documented Physical Exam Const alert, oriented x3 and no apparent distress HEENT Head and Scalp: atraumatic Resp normal respiratory effort GI soft to palpation and non-tender Bimanual Exam - Vag & Uterus: uterus non-tender Uterus Palpation: uterus fundus firm (below Umbilicus) Assessment & Plan (1) Rh negative state in antepartum period: COMMENT: Rhogam @28 weeks and PRN for Bleeding (2) Gestational thrombocytopenia: QUALIFIERS: Trimester: third trimester Qualified Code(s): O99.113 - Other diseases of the blood and blood-forming organs and certain disorders involving the immune mechanism complicating , third trimester; D69.6 - Thrombocytopenia, unspecified COMMENT: 02/18:139. 03/18:135. Rpt 36wk (3) Vaginal delivery: COMMENT: KW 38.3 IAL girl PLAN: Plan s/p PPD # 1 1. routine post delivery care 2. breast feeding- support given 3. rh negative 4. rubella immune
[2023-04-29 08:45] VITALS: BP 115/75; PULSE 52; RESP 16; TEMP 36.4; O2SAT 99
[2023-04-29 14:49] LABS: Syphilis Antibodies Non-reactive
== END 2023-04-29 10:55 | disposition home or self-care (01) | DRG 806 ==
LOC: WPOUT 02:36 → WP 02:36
PROVIDERS: Admitting Provider Advanced Practice Midwife; PCP Family Medicine; Visit Provider Advanced Practice Midwife
DX: O43.103 Malformation of placenta, unspecified, third trimester (principal); Z37.0 Single live birth; O99.12 Other diseases of the blood and blood-forming organs and certain disorders involving the immune mechanism complicating childbirth; D69.6 Thrombocytopenia, unspecified; O26.23 Pregnancy care for patient with recurrent pregnancy loss, third trimester; O26.893 Other specified pregnancy related conditions, third trimester; Z67.41 Type O blood, Rh negative; Z3A.38 38 weeks gestation of pregnancy; Z87.59 Personal history of other complications of pregnancy, childbirth and the puerperium
CPT/HCPCS: 59025; 59050; 85025; 85461; 86780; 86850; 86870; 86900; 86901; 86905; 99221; J7120; G0378; J2790

== ENCOUNTER → 2024-06-08 | Outpatient (CLI) | payer OTHER, SELFPAY ==
[2024-06-15 14:44] LABS: HPV Reflexed? NOT INDICATED
== END | disposition home or self-care (01) ==
PROVIDERS: PCP Family Medicine; Referring Provider Nurse Practitioner Women's Health; Visit Provider Nurse Practitioner Women's Health
DX: Z12.4 Encounter for screening for malignant neoplasm of cervix (principal)
CPT/HCPCS: 88175; G0145

== ENCOUNTER → 2024-09-03 | Outpatient (CLI) | payer BC, SELFPAY | END | disposition home or self-care (01) | LOC: LABSPEC 10:23 | PROVIDERS: PCP Family Medicine; Referring Provider Physician Assistant Surgical; Visit Provider Physician Assistant Surgical | DX: R30.0 Dysuria (principal) | CPT/HCPCS: 87086 ==

== ENCOUNTER → 2025-01-27 | Outpatient (CLI) | payer BC, SELFPAY ==
[2025-01-27 12:05] LABS: Absolute Lymphocyte Count 1.49 X10^3/uL (0.83-4.51); Absolute Neutrophil Count 3.1 X10^3/uL (2.0-7.7); Basophil# 0.04 X10^3/uL; Basophil% 0.8 % (0-1); Eosinophil# 0.11 X10^3/uL; Eosinophils% 2.2 % (0-5); Hemoglobin 12.7 g/dL (12.0-15.0); Lymphocyte # 1.49 X10^3/ul (0.83-4.51); Lymphocyte % 29.5 % (19-41); Mean Corp Hgb Conc 34.3 g/dL (32-36); Mean Corpuscular Hgb 28.9 pg (27.0-32.0); Mean Corpuscular Volume 84.3 fL (81-99); Mean Platelet Vol. 10.5 fl (6.2-12.0); Monocyte% 5.9 % (0-10); NRBC Flagged by Analyzer 0 % (0-5); Neutrophil % 61.4 % (47-70); Platelet Count 163 K/mm3 (150-450); RBC Distribution Width CV 11.5 % (11.6-14.6); RBC Distribution Width SD 35.3 fl (35.1-43.9); Red Blood Count 4.39 M/mm3 (4.2-5.4); White Blood Count 5.1 K/mm3 (4.4-11.0)
[2025-01-27 13:14] LABS: HIV Nonreactive (Nonreactive); Hepatitis B Surface Antigen Nonreactive (Nonreactive); Hepatitis C Antibody Nonreactive (Nonreactive); Rubella IgG REAC (Nonreactive); Syphilis Antibodies Nonreactive (Nonreactive)
[2025-01-28 10:09] LABS: Lead, Blood Adult 16+yrs < 1.0 ug/dL (0.0-3.4)
[2025-01-31 21:07] LABS: Chlamydia By Nucleic Acid AMP Negative (Negative); Gonococcus By Nucleic Acid AMP Negative (Negative)
== END | disposition home or self-care (01) ==
PROVIDERS: PCP Family Medicine; Referring Provider Advanced Practice Midwife; Visit Provider Advanced Practice Midwife
DX: O09.90 Supervision of high risk pregnancy, unspecified, unspecified trimester (principal); Z3A.00 Weeks of gestation of pregnancy not specified
CPT/HCPCS: 36415; 83655; 85025; 86703; 86762; 86780; 86803; 86850; 86900; 86901; 87086; 87088; 87340; 87491; 87591

== ENCOUNTER → 2025-04-14 | Outpatient (CLI) | payer OTHER, SELFPAY ==
--- NOTE | 2025-04-14 12:22 | US_ITS ---
PROCEDURE: OB ANATOMY W/ TRANSVAGINAL 04/14/2025 REASON FOR EXAM: [id number] TECHNIQUE: OB ANATOMY W/ TRANSVAGINAL COMPARISON: None FINDINGS LMP: November 25, 2024. Number: 1 Position: Transverse right Placental Position: Fundal. Placental Abnormalities: No evidence of previa. DIMENSIONS: Biparietal Diameter: 4.59 cm: 19 weeks and 6 days: 45%/ Head Circumference: 17.46 cm: 20 weeks and 0 days: 41 percentile/ Abdominal Circumference: 14.93 cm: 20 weeks and 1 day: 50 percentile/ Femur Length: 3.18 cm: 19 weeks and 6 days: 38 percentile/ ESTIMATED WEIGHT: 329 g plus/-49 g ESTIMATED WEIGHT PERCENTILE (24+ weeks): 48 ESTIMATED GESTATIONAL AGE: Baseline: 20 weeks and 0 days By Ultrasound: 19 weeks and 6 days ESTIMATED DATE OF DELIVERY: Baseline: September 01, 2025 By Ultrasound: September 02, 2025 BIOPHYSICAL ASSESSMENT: Amniotic Fluid Volume: 3.9 cm Amniotic Fluid Index: Within normal limits. (8-24 cm normal range) Cardiac Motion: 147 beats per minute (average) Trunk and Limb Motion: Present. MATERNAL ANATOMY: Adnexa: Neither maternal ovary is successfully identified. Cervical Length (if measured): 3.6 cm ANATOMY: Spine: Unremarkable Cranium: Unremarkable Cerebellum: Unremarkable Cisterna Magna: Unremarkable Cavum Septum Pellucidi: Unremarkable Lateral Ventricles: Unremarkable Choroid Plexus: Unremarkable Midline Falx: Marker Nuchal Fold: Unremarkable Upper Lip: Unremarkable Heart: Unremarkable Ventricular Outflow Tracts: Unremarkable Stomach: Unremarkable Kidneys: Unremarkable Bladder: Unremarkable Umbilical Cord: Normal insertion. Extremities: Unremarkable US/OB Anatomy w/ Transvaginal IMPRESSION: Single live intrauterine gestation with a mean gestational age of 19 weeks and 6 days. Reading Location: [id number]
== END | disposition home or self-care (01) ==
PROVIDERS: PCP Family Medicine; Referring Provider Advanced Practice Midwife; Visit Provider Advanced Practice Midwife
DX: O09.90 Supervision of high risk pregnancy, unspecified, unspecified trimester (principal); Z3A.00 Weeks of gestation of pregnancy not specified
CPT/HCPCS: 76805; 76817

== ENCOUNTER → 2025-06-09 | Outpatient (CLI) | payer OTHER, SELFPAY ==
--- OUTSIDE RECORDS SUMMARY | 2025-06-09 17:01 | XMS RPT_ITS | CCD ---
Author Organization [facility] Care Team Providers [facility] Network Technician Name Role Phone MD Ada Garcia Primary Care Provider MD Ada Casper Referring Provider Unavailable Dr. Serenity Luna Attending Provider [phone] Dr. Ana Wynne Attending Provider [phone] Dr. Ana Wynne Other Provider [phone] Dr. Samia Frias Admit Provider Dr. Ana Wynne Admit Provider [phone] Prince DEAL ARCHITECT, CAPO Louise Attending Provider [phone] Ada Garcia Primary Care Provider MD Ada Garcia S Primary Care Provider UnavailMD Ada Rodas S Referring Provider Unavailable HOWARD Li Attending Provider Dr. Ana Wynne Attending Provider [phone] SERENITY BELL Referring Unavailab ADA Li Primary Care Unavailable KAN TORREZ Attending Unavailable MD Ada Maddox S Primary Care Provider Unav ailable MD Ada Maddox Referring Provider Unavail Dr. Ana Groves Attending Provider [phone] Dr. Serenity Luna Attending Provider [phone] Prince WALKER NP-Janay Louise Attending Provider [phone] MAX Knight Attending Provider [phone] MD Ada Maddox S Primary Care Provider Unav ailable MD Ada Maddox Referring Provider Unavail able Dr. Ada Garcia S Primary Care Provider MD Ada Maddox S Primary Care Provider Unav ailable Radha THAPA MD Ada S Referring Provider Unavail able Dr. Serenity Luna Attending Provider [phone] MD Ada Maddox S Primary Care Provider Unav ailable Radha THAPA MD Ada S Referring Provider Unavail able Prince DEAL ARCHITECT, DEAL ARCHITECT-C Aspen Attending Provider [phone] Dr. Ana Wynne Attending Provider [phone] MAX Knight Referring Provider [phone] MAX Knight Other Provider Dr. Ada Garcia Referring Provider MD Ada Maddox S Primary Care Provider Unav ailable MD Ada Maddox S Referring Provider Unavail able MAX Knight Attending Provider [phone] MAX Knight Admit Provider [phone] Ada Garcia Primary Care Provider ADA GARCIA LEONARD Primary Care Unavailable LEIA MCDONOUGH Attending Unavailable Dr. Ada Garcia MD Primary Care Provider Jarrett RN, Kiah Attending Provider Unavailabl Dr. Ada Schroeder MD Referring Provider Jeanine Knight CNM Attending Provider [phone] Jeanine Knight CNM Referring Provider [phone] Dr. Ana Wynne MD Attending Provider Dr. Serenity Luna DO Attending Provider JORGE LUIS REID Primary Care Physician Prince WALKER-C, Aspen Attending Provider [phone] JORGE LUIS REID Attending JORGE LUIS Youngblood Primary Care Jeanine Dominique Attending Unavailable Jolliff, Ada S Referring Unavailable Jolliff, Ada S Primary Care Unavailable Jolliff, Ada S Primary Care Unavailable Jolliff, Ada S Referring Unavailable Prince DENISE, Aspen Attending Unavailable Jolliff, Ada S Referring Unavailable Jolliff, Ada S Primary Care Unavailable Prince DEAL ARCHITECT, Aspen Attending Unavailable Jolliff, Ada S Referring Unavailable Jolliff, Ada S Primary Care Unavailable Prince DEAL ARCHITECT, Aspen Attending Unavailable Jolliff, Ada S Primary Care Unavailable Prince DEAL ARCHITECT, Aspen Attending Unavailable Prince DEAL ARCHITECT, Aspen Referring Unavailable Eugene, Jeanine Referring Unavailable Jolliff, Ada S Primary Care Unavailable Jeanine Knight Attending Unavailable Jolliff, Ada S Primary Care Unavailable Tyler LAWRENCE, Jose Attending Unavailable Tyler LAWRENCE, Jose Referring Unavailable Jeanine Knight Attending Unavailable Jeanine Knight Referring Unavailable Jolliff, Ada S Primary Care Unavailable Jolliff, Ada S Referring Unavailable Jolliff, Ada S Primary Care Unavailable Ana Wynne Attending Unavailable Jolliff, Ada S Referring Unavailable Jolliff, Ada S Primary Care Unavailable Serenity Luna Attending Unavailabl e Jolliff, Ada S Primary Care Unavailable Jolliff, Ada S Referring Unavailable Tyler LAWRENCE, Jose Attending Unavailable Jolliff, Ada S Primary Care Unavailable Kiah Farias Attending Unavailable Dr. Ada Garcia MD Primary Care Physician Jeanine Knight CNM Attending Physician [phone] Dr. Ana Wynne MD Attending Physician Dr. Serenity Luna DO Attending Physician Prince WALKER-CAspen Attending Physician [phone] Medications Current Medications Medication Drug Class(es) Dates Sig (Normalized) Sig (Original) [id number] 200 actuat albuterol 0.09 mg/actuat metered dose inhaler (4 sources) beta2-Adrenergic Agonist Start: 08-29-2018 take 2 puff(s) by inhalation every four hours as needed albuterol HFA (PROAIR HFA) 90 mcg/actuation inhaler Indications: Cough Inhale 2 Puffs as instructed every 4 hours as needed. 1 Inhaler 08/29/2018 Active Comment on above: Inhale 2 Puffs as in structed every 4 hours as needed. famotidine 20 mg oral tablet (1 source) Histamine-2 Receptor Antagonist Start: 09-14-2024 End: 09-21-2024 take 1 tablet by mouth twice daily famotidine (PEPCID) 20 mg tablet Indications: Rash Take 1 tablet by mouth two times a day for 7 days. 14 tablet 09/14/2024 09/21/2024 Active Fish Oil Mini oral capsule (1 source) Start: 04-19-2025 take 1 capsule by mouth four times daily Fish Oil Mini oral capsule 600 mg, QID, 0 Refill(s) Start Date: 04/19/25 Status: Ordered Medication Dispense Status: Completed Total Allowed Fills: 1 Fills Dispensed: 0 Madison-3 Fatty Acids (3 sources) Start: 04-10-2023 take 600 mg by mouth once daily Madison-3 Fatty Acids Active 600 MG PO DAILY April 10, 2023 12:00am Madison-3 Fatty Acids capsule (7 sources) Start: 04-10-2023 take 1 capsule by mouth once daily Madison-3 Fatty Acids capsule Active 600 mg PO DAILY April 10, 2023 12:00am Complies with drug therapy Start: 04-10-2023 take 1 capsule by mouth once d aily Madison-3 Fatty Acids capsule Active 600 mg PO DAILY April 10, 2023 12:00am [id number]-Mdpa-Wd-N6-Jpd-Akz-Hn sh (11 sources) Start: 09-10-2022 [id number]-Il-M3-Oso-Bou-Bd sh Active CAP PO September 10, 2022 1:00am Start: 09-10-2022 Kbq370-Zdkc-Jb -F7-Usn-Nak-Fish Active CAP PO September 10, 2022 12:00am [id number]-Nnzm-Oo-B5-Xow-Hmd-Xs sh 27 mg iron-800 mcg-260 mg capsule (7 sources) Start: 09-10-2022 [id number]-Bivt-Re-D4-Mjm-Bqo-Bh sh 27 mg iron-800 mcg-260 mg capsule Active NMA PO September 10, 2022 1:00am Complies with drug therapy Start: 09-10-2022 Kyo750-Gukl-Fv -S6-Cdh-Mmp-Fish 27 mg iron-800 mcg-260 mg capsule Active NMA PO September 10, 2022 1:00am predniSONE 10 mg oral tablet (1 source) Start: 09-14-2024 End: 09-23-2024 predniSONE (DELTASONE) 10 mg tablet Indications: Rash Take 4 tabs daily for 3 days, then 2 tabs daily for 3 days, then 1 tab daily for 3 days with food. 21 tablet 09/14/2024 09/23/2024 Active 19 (Nationwide) oral tablet (1 source) Start: 04-19-2025 take 1 tablet by mouth once daily 19 (Nationwide) oral tablet tab(s), Oral, qDay, 0 Refill(s) Start Date: 04/19/25 Status: Ordered Medication Dispense Status: Completed Total Allowed Fills: 1 Fills Dispensed: 0 sucralfate 1000 mg oral tablet (2 sources) Aluminum Complex Start: 09-05-2020 take 1 tablet by mouth at bedtime sucralfate (CARAFATE) 1 gram tablet Take 1 tablet by mouth before meals and at bedtime. 30 tablet 09/05/2020 Active Comment on above: Take 1 tablet by keyona th before meals and at bedtime. Completed/Discontinued Medications Medication Drug Class(es) Dates Sig (Normalized) Sig (Original) ascorbic acid 250 mg oral tablet (10 sources) Vitamin C Start: 04-10-2023 End: 01-14-2025 take 1 tablet by mouth once daily Ascorbic Acid (Vitamin C) (Vitamin C) 250 mg tablet Discontinued 250 mg PO DAILY April 10, 2023 12:00am January 14, 2025 9:23am aspirin 81 mg delayed release oral tablet (19 sources) Platelet Aggregation Inhibitor, Nonsteroidal Anti-inflammatory Drug Start: 02-08-2021 End: 11-15-2021 take 1 tablet by mouth once daily Aspirin (Adult Aspirin Regimen) 81 mg tablet,delayed release (DR/EC) Discontinued 81 mg PO DAILY February 08, 2021 12:00am November 15, 2021 10:04am hx loss cephalexin 500 mg oral capsule (19 sources) Cephalosporin Antibacterial Start: 02-23-2021 End: 03-02-2021 take 1 capsule by mouth every six hours Cephalexin 500 mg capsule Discontinued 500 mg PO EVERY 6 HOURS 28 7 0 February 23, 2021 12:00am March 01, 2021 12:00am March 02, 2021 12:01am docosahexaenoic acid 200 mg oral capsule (20 sources) Start: 09-26-2020 End: 09-10-2022 take 1 capsule by mouth once daily Docosahexaenoic Acid ( Dha) 200 mg capsule Discontinued 200 mg PO DAILY September 26, 2020 1:00am September 10, 2022 9:32am nitrofurantoin, macrocrystals 25 mg / nitrofurantoin, monohydrate 75 mg oral capsule (20 sources) Nitrofuran Antibacterial Start: 09-03-2024 End: 09-10-2024 take 1 capsule by mouth every twelve hours at mealtime Nitrofurantoin Monohyd/M-Cryst 100 mg capsule Discontinued 1 NMA PO Q12H 14 7 0 September 03, 2024 1:00am September 09, 2024 1:00am September 10, 2024 1:11am administer with a meal/food; swallow whole; do not open, crush, dissolve , or chew Start: 09-13-2022 End: 10-01-2022 take 1 capsule by mouth twice daily at mealtime Nitrofurantoin Monohyd/M-Cryst (Macrobid) 100 mg capsule Discontinued 100 mg PO TWICE A DAY 10 0 September 13, 2022 1:00am October 01, 2022 9:37am must administer with a meal/food Start: 09-02-2022 End: 09-07-2022 take 1 capsule by mouth every twelve hours at mealtime Nitrofurantoin Monohyd/M-Cryst (Macrobid) 100 mg capsule Discontinued 100 mg PO Q12H 10 5 0 September 02, 2022 1:00am September 06, 2022 1:00am September 07, 2022 1:13am must administer with a meal/food Madison-3 Fatty Acids (Fish Oil Concentrate) 1,000 mg capsule (19 sources) Start: 09-26-2020 End: 11-15-2021 take 1 capsule by mouth once daily Madison-3 Fatty Acids (Fish Oil Concentrate) 1,000 mg capsule Discontinued 1000 MG PO DAILY September 26, 2020 9:51am November 15, 2021 10:04am Start: 09-26-2020 End: 11-15-2021 take 1 capsule by mouth once daily Madison-3 Fatty Acids (Fish Oil Concentrate) 1,000 mg capsule Discontinued 1000 mg PO DAILY September 26, 2020 1:00am March 24th, 2022 10:04am supplement Start: 09-26-2020 End: 11-15-2021 take 1 capsule by mouth once daily Madison-3 Fatty Acids (Fish Oil Concentrate) 1,000 mg capsule Discontinued 1000 mg PO DAILY September 26, 2020 1:00am November 15, 2021 10:04am Start: 09-26-2020 End: 11-15-2021 take 1 capsule by mouth once daily Madison-3 Fatty Acids (Fish Oil Concentrate) 1,000 mg capsule Discontinued 1000 MG PO DAILY September 26, 2020 1:00am November 15, 2021 10:04am Start: 09-26-2020 End: 11-15-2021 take 1 capsule by mouth once daily Madison-3 Fatty Acids (Fish Oil Concentrate) 1,000 mg capsule Discontinued 1000 MG PO DAILY September 26, 2020 12:00am November 15, 2021 9:04am rho(d) immune globulin, human 1500 unt prefilled syringe (2 sources) Human Immunoglobulin G Start: 07-11-2021 End: 07-11-2021 inject 1500 [IU] by intramuscular injection once RhoGAM Ultra-Filtered PLUS (rho(D) immune globulin) 1,500 unit (300 mcg) Discontinued 1500 UNIT IM ONCE July 11, 2021 9:51am July 11, 2021 10:09am Start: 11-24-2020 End: 11-24-2020 inject 1500 [IU] by intramuscular injection once RhoGAM Ultra-Filtered PLUS (rho(D) immune globulin) 1,500 unit (300 mcg) Discontinued 1500 UNIT IM ONCE November 24, 2020 2:03pm November 24, 2020 2:22pm Problems Active Problems Problem Classification Problem Date Documented Date Episodic/Chronic Early or threatened labor (15 sources) Premature uterine contraction; Translations: [False labor before 37 completed weeks of gestation, unspecified trimester] 04-10-2023 Episodic Comment on above: 04/10- 09/23/-3, urine neg, resolved with oral hydrationD/C home Immunizations and screening for infectious disease (20 sources) Requires diphtheria, tetanus and pertussis vaccination; Translations: [Encounter for immunization] Episodic Comment on above: Given 07/11/21 Rhogam given 4/2 due to quant of 10 with bleeding. Given 07/11/21 Other complications of (19 sources) Disease caused by 2019-nCoV; Translations: [Other viral diseases complicating , unspecified trimester] 11-15-2021 Episodic Comment on above: at 24 weeks, 81 mg a sa, growth US at 32 and 36 weeks Other complications of (20 sources) Benign gestational thrombocytopenia; Translations: [Other diseases of the blood and blood-forming organs and certain disorders involving the immune mechanism complicating , unspecified trimester] 11-15-2021 Episodic Comment on above: repeat CBC in 4w 02/18:139. 7/:135. Rpt 36wk Other complications of (20 sources) High risk ; Translations: [Supervision of high risk , unspecified, unspecified trimester] 09-10-2022 Episodic Comment on above: ; RONEY 08/31/24; PC : Renae & Iveth; : Bam PRR RONEY 10/01/21 Boy! Renae Spouse: Bam Stanley [id number], RONEY 05/09/23 , PC Renae, Bam PRR (waiting on gcc) ; RONEY 08/31/24; PC: Columba; : Bam PRR, ; RONEY 5; PC: Renae & Iveth; : Bam Other complications of (8 sources) Other viral diseases complicating , unspecified trimester; Translations: [Other viral diseases in the mother, antepartum condition or complication] Episodic Other complications of (20 sources) Other diseases of the blood and blood-forming organs and certain disorders involving the immune mechanism complicating , unspecified trimester; Translations: [Coagulation defects complicating , childbirth, or the puerperium, unspecified as to episode of care or not applicable] Episodic Other complications of (20 sources) Supervision of high risk , unspecified, unspecified trimester; Translations: [Supervision of unspecified high-risk ] Onset: 04-22-2025 Episodic Other complications of (20 sources) H/O: miscarriage; Translations: [Supervision of with other poor reproductive or obstetric history, unspecified trimester] 09-10-2022 Episodic Comment on above: 2 Miscarriages in 20 21 Other complications of (20 sources) RhD negative; Translations: [Other specified related conditions, unspecified trimester] 09-10-2022 Episodic Comment on above: Rhogam @ 28wks & PRN ; to call with any bleeding/spotting Rhogam @28 weeks and PRN for Bleeding Other complications of (20 sources) Supervision of with other poor reproductive or obstetric history, unspecified trimester; Translations: [Supervision of high-risk with history of ] Onset: 03-23-2025 09-16-2022 Episodic Other complications of (20 sources) Other specified related conditions, unspecified trimester; Translations: [Other specified complications of , antepartum condition or complication] Onset: 03-23-2025 09-16-2022 Episodic Other complications of (14 sources) Anomaly of placenta; Translations: [Malformation of placenta, unspecified, unspecified trimester] 12-19-2022 Episodic Comment on above: lakes- growth US q4 weeks-39% at 28 weeks, 41% at 32 weeks, 55% at 36 weeks Other complications of (20 sources) Malformation of placenta, unspecified, unspecified trimester; Translations: [Other placental conditions, affecting management of mother, unspecified as to episode of care or not applicable] 12-24-2022 Episodic Other female genital disorders (19 sources) Recurrent miscarriage; 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] 11-15-2021 Episodic Comment on above: minimal elevated APL :rpt 12 wk, repeat nl Other female genital disorders (8 sources) Recurrent loss; Translations: [Full-term infant] Episodic Other hematologic conditions (20 sources) History of thrombocytopenia; Translations: [Personal history of diseases of the blood and blood-forming organs and certain disorders involving the immune mechanism] 01-14-2025 Episodic Comment on above: First Other hematologic conditions (1 source) Personal history of diseases of the blood and blood-forming organs and certain disorders involving the immune mechanism; Translations: [Personal history of diseases of the blood and blood-forming organs and certain disorders involving the immune mechanism] Onset: 03-23-2025 Episodic Other nutritional; endocrine; and metabolic disorders (20 sources) Biotinidase deficiency; 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; 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 Other nutritional; endocrine; and metabolic disorders (20 sources) Galactosemia; 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 Comment on above: carrier of; 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 Other nutritional; endocrine; and metabolic disorders (1 source) Biotinidase deficiency; 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 NIPT low risk, nl anatomy GBS neg,discussed ge netic & carrier testing Discussed genetic/ca rrier testing - undecided; prior carrier testing done, nl anatomy Other skin disorders (1 source) Eruption; Translations: [Rash and other nonspecific skin eruption] 09-14-2024 Episodic Other skin disorders (1 source) Rash and other nonspecific skin eruption; Translations: [Rash] Onset: 09-14-2024 Episodic Other upper respiratory infections (2 sources) Sore throat symptom; Translations: [Acute pharyngitis, unspecified] Onset: 09-14-2024 09-14-2024 Episodic Otitis media and related conditions (7 sources) Dysfunction of eustachian tube; Translations: [Unspecified Eustachian tube disorder, left ear] 06-08-2024 Episodic Polyhydramnios and other problems of amniotic cavity (7 sources) Spontaneous rupture of membranes 11-15-2021 Episodic Residual codes; unclassified (19 sources) Genetic disorder carrier; 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 Residual codes; unclassified (8 sources) Genetic carrier of other disease; Translations: [Other genetic carrier status] Episodic Residual codes; unclassified (20 sources) Contact with and (suspected) exposure to lead; Translations: [Exposure to lead] Onset: 03-23-2025 01-27-2025 Episodic Residual codes; unclassified (1 source) Unspecified blood type, Rh negative; Translations: [Unspecified blood type, Rh negative] Onset: 03-23-2025 Episodic Residual codes; unclassified (1 source) 16 weeks gestation of ; Translations: [16 weeks gestation of ] Onset: 03-23-2025 Episodic Urinary tract infections (20 sources) Urinary tract infectious disease; Translations: [Urinary tract infection, site not specified] 09-02-2022 Episodic Past or Other Problems Problem Classification Problem Date Documented Date Episodic/Chronic Genitourinary symptoms and ill-defined conditions (2 sources) Urinary symptoms ; Translations: [Unspecified symptoms and signs involving the genitourinary system] Onset: 09-25-2024 Episodic Other screening for suspected conditions (not mental disorders or infectious disease) (8 sources) Biopsy result abnormal; Translations: [Abnormal histological findings in specimens from other organs, systems and tissues] Onset: 06-30-2024 01-14-2025 Episodic Comment on above: Mole on stomach - hi gh risk, recheck in 3mo Residual codes; unclassified (1 source) 13 weeks gestation of ; Translations: [13 weeks gestation of ] Onset: 02-24-2025 Episodic Residual codes; unclassified (1 source) 9 weeks gestation of ; Translations: [9 weeks gestation of ] Onset: 01-27-2025 Episodic Unclassified (13 sources) Normal labor; Translations: [Active labor at term] Unclassified (13 sources) Spontaneous rupture of membranes; Translations: [Spontaneous rupture of amniotic membranes] Unclassified (9 sources) Labor finding; Translations: [Active labor] 04-29-2023 Results Test Name Value Interpretation Reference Range Facility Laboratory - Chemistry and C hemistry - challengeOrdered By: Aspen Morrison on 05-19-2025 Glucose Ql (U) Negative [facility] Laboratory - UrinalysisOrder ed By: Aspen Morrison on 05-19-2025 Protein Ql (U) Negative [facility] Tear Down Matcher Office Visit Reporton 05-19-2025 Tear Down Matcher Office Visit Report [facility] [address], [address] [place] [address] OFFICE VISIT Date of Service: 05/19/25 MR#: [id number] Acct: [id number] Name: HEATHER ANGEL Rep #: [id number] : 1995 Provider: CAPO botello Age/Sex: 30/F Location: [facility] [place] Status: Signed Intake Vital Signs 03/23/25 10:38 04/20/25 10:09 05/19/25 12:53 Height 5 ft 3 in 5 ft 3 in 5 ft 3 in Weight: 159 lb 5 oz BMI 28.2 BP 114/67 Intake Visit Reasons: 25 wk ob Chief Complaint: 25 Week OB Training Generalist Required: No Is patient in pain?: No Allergies No Known Allergies Allergy (Verified 05/19/25 12:57) Medications ???Medication ???Instructions ???Recorded ???Confirmed ???Type PNV no.151-iron 27 mg-folic 800 cap PO 09/10/22 05/19/25 History mcg-omega3 260 fn-mzp-ioh-fish capsule omega-3 fatty acids 600 mg PO DAILY 04/10/23 05/19/25 History Last Menstrual Period: 11/24/24 Zika: Zika virus screening: Negative : Yes PFSH PFSH Medical History Galactosemia Biotinidase deficiency Abnormal biopsy result Family History Grandfather Cancer unknown type Grandmother Hypertension Ovarian cancer Paternal Grandfather Hypertension Grandmother Asthma Father Hypertension Social History adopted: No household members: spouse and children number of children: 2 current occupation: [employer] current occupational exposures/hazards: No pets and animals: Yes pets and animals: dog(s) and farm animals history of recent travel: No sexually active: Yes Smoking Status: Never smoker second hand exposure: No alcohol intake: never substance use type: does not use well-balanced diet: daily or most days caffeine: No eating out: rarely or never during the past year weight has: decreased > 10 lbs what type of physical activity do you participate in: walking frequency: 1-2 times per week duration: 15-30 minutes/day gabriela/restoration: Advent seatbelt use: always do you feel safe at home: Yes 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 Date Name GA/Weeks Outcome Route Bth Weight Infant Gen Labor Lgth Anesthesia Del Locatn Provider FOB Unknown 11/2020 spontaneous Unknown 12/2020 spontaneous 10/02/21 Jacsindi 40 live - full term 9lbs 11oz Male 23 epidural [facility] SM Bam 04/28/23 Iveth Alba 38 live - full term [id number] Female epidural [facility] Rayna Kuhn Delivery Date: 10/02/21 Last Updated by: Chacha Farmer SROM 40w SM Renae Delivery Date: 04/28/23 Last Updated by: Sharda James IOL HPI 25 wk ob Details: HEATHER ANGEL is a 30 year old who presents for routine OB visit. OB Visit RONEY Calculator Estimated Delivery Date Method Current WG Current Estimate 09/01/25 Ultrasound #1 25w 0d Other Estimates 08/31/25 LMP (Certain) 25w 1d Expected Delivery Route/Plan Labor Preferences- CB/BF classes: no labor support person: Bam labor intervention preferences: [] pain management options preferred: epidural cut cord/dad catch: cord : yes PP control planned: discussed discussed possible routes of delivery and associated risks: [] special requests: [] Specific Issue/Plans Covid status: [] Flu vaccine: [] Tdap vaccine: [] Rhogam: [] LARC form signed: yes Problem list reviewed and updated with the most current plan of care details and appropriate orders placed. Relevant counseling for the gestational age provided. Continue routine care and follow up unless otherwise noted in visit notes/problem list details Initial Weight: 142 lb Date -???-???-???-???-???-???-? ??-???-???-???-???-???- EGA Weight BP Urine Prot -???-???-???-???-???-???-? ??-???-???-???-???-???- Glucose FHR FuHt Pres Dilation -???-???-???-???-???-???-? ??-???-???-???-???-???- Effaced St Visit Note 01/27/25 -???-???-???-???-???-???-? ??-???-???-???-???-???- 9w 0d 142 lb 6 oz (+6 oz) 115/75 -???-???-???-???-???-???-? ??-???-???-???-???-???- 169 -???-???-???-???-???-???-? ??-???-???-???-???-???- KW- CRL cons with dates. denies nipt. lead exposure and requesting lead testing-added to NOB labs 02/24/25 -???-???-???-???-???-???-? ??-???-???-???-???-???- 13w 0d 144 lb (+2 lb) 119/75 Negative -???-???-???-???-???-???-? ??-???-???-???-???-???- Negative 150 -???-???-???-???-???-?? (more content not included)... Normal [facility] - Chemistry and C hemistry - challengeOrdered By: Aspen Morrison on 04-20-2025 Glucose Ql (U) Negative [facility] - UrinalysisOrder ed By: Aspen Morrison on 04-20-2025 Protein Ql (U) Negative [facility] Tear Down Matcher Office Visit Reporton 04-20-2025 Tear Down Matcher Office Visit Report [facility]'s [address], [address] [place] [address] OFFICE VISIT Date of Service: 04/20/25 MR#: [id number] Acct: [id number] Name: HEATHER ANGEL Rep #: [id number] : 1995 Provider: CAPO botello Age/Sex: 30/F Location: [facility] [place] Status: Signed Intake Vital Signs 01/27/25 10:32 03/23/25 10:38 04/20/25 10:04 04/20/25 10:09 Height 5 ft 3 in 5 ft 3 in 5 ft 3 in 5 ft 3 in Weight: 152 lb 6 oz BMI 26.9 BP 120/77 Intake Visit Reasons: 21wk ob Chief Complaint: 21 Week OB Training Generalist Required: No Is patient in pain?: No Allergies No Known Allergies Allergy (Verified 04/20/25 10:00) Medications ???Medication ???Instructions ???Recorded ???Confirmed ???Type PNV no.151-iron 27 mg-folic 800 cap PO 09/10/22 04/20/25 History mcg-omega3 260 qd-zrc-iyn-fish capsule omega-3 fatty acids 600 mg PO DAILY 04/10/23 04/20/25 History Last Menstrual Period: 11/24/24 Zika: Zika virus screening: Negative : No PFSH PFSH Medical History Galactosemia Biotinidase deficiency Abnormal biopsy result Family History Grandfather Cancer unknown type Grandmother Hypertension Ovarian cancer Paternal Grandfather Hypertension Grandmother Asthma Father Hypertension Social History adopted: No household members: spouse and children number of children: 2 current occupation: [employer] current occupational exposures/hazards: No pets and animals: Yes pets and animals: dog(s) and farm animals history of recent travel: No sexually active: Yes Smoking Status: Never smoker second hand exposure: No alcohol intake: never substance use type: does not use well-balanced diet: daily or most days caffeine: No eating out: rarely or never during the past year weight has: decreased > 10 lbs what type of physical activity do you participate in: walking frequency: 1-2 times per week duration: 15-30 minutes/day gabriela/restoration: Advent seatbelt use: always do you feel safe at home: Yes 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 Date Name GA/Weeks Outcome Route Bth Weight Gen Labor Lgth Anesthesia Del Locatn Provider FOB Unknown 11/2020 spontaneous Unknown 12/2020 spontaneous 10/02/21 Renae 40 live - full term 9lbs 11oz Male [address] [facility] SM Bam 04/28/23 Iveth Alba 38 live - full term [id number] Female epidural [facility] Rayna Knight Bam Delivery Date: 10/02/21 Last Updated by: Chacha Farmer SROM 40w SM Renae Delivery Date: 04/28/23 Last Updated by: Sharda NUNEZ HPI 21wk ob Details: HEATHER ANGEL is a 30 year old who presents for routine OB visit. OB Visit RONEY Calculator Estimated Delivery Date Method Current WG Current Estimate 09/01/25 Ultrasound #1 20w 6d Other Estimates 08/31/25 LMP (Certain) 21w 0d Expected Delivery Route/Plan Labor Preferences- CB/BF classes: [] labor support person: [] labor intervention preferences: [] pain management options preferred: [] cut cord/dad catch: [] : [] PP control planned: [] discussed possible routes of delivery and associated risks: [] special requests: [] Specific Issue/Plans Covid status: [] Flu vaccine: [] Tdap vaccine: [] Rhogam: [] LARC form signed: [] Problem list reviewed and updated with the most current plan of care details and appropriate orders placed. Relevant counseling for the gestational age provided. Continue routine care and follow up unless otherwise noted in visit notes/problem list details Initial Weight: 142 lb Date -???-???-???-???-???-???-? ??-???-???-???-???-???- EGA Weight BP Urine Prot -???-???-???-???-???-???-? ??-???-???-???-???-???- Glucose FHR FuHt Pres Dilation -???-???-???-???-???-???-? ??-???-???-???-???-???- Effaced St Visit Note 01/27/25 -???-???-???-???-???-???-? ??-???-???-???-???-???- 9w 0d 142 lb 6 oz (+6 oz) 115/75 -???-???-???-???-???-???-? ??-???-???-???-???-???- 169 -???-???-???-???-???-???-? ??-???-???-???-???-???- KW- CRL cons with dates. denies nipt. lead exposure and requesting lead testing-added to NOB labs 02/24/25 -???-???-???-???-???-???-? ??-???-???-???-???-???- 13w 0d 144 lb (+2 lb) 119/75 Negative -???-???-???-???-???-???-? ??-???-???-???-???-???- Negative 150 -???-???-???-???-?? (more content not included)... Normal [facility] OB Anatomy w/ Transvaginalon 04-14-2025 OB Anatomy w/ Transvaginal [facility] Imaging Services [facility] [place] [address] [place] [address] OB Anatomy w/ Transvaginal MR#: [id number] Acct: [id number] Name: HEATHER ANGEL Rep #: [id number] : 1995 F 30 From: Philip stoner MD PCP: Dr. Ada Garcia MD Status: [facility] CL Study: OB Anatomy w/ Transvaginal Date of Exam: 04/14 Exam# [id number] Ordering Dr: Jeanine Knight CNM PROCEDURE: OB ANATOMY W/ TRANSVAGINAL 04/14/2025 REASON FOR EXAM: ANATOMY@18-20WKS TECHNIQUE: OB ANATOMY W/ TRANSVAGINAL COMPARISON: None FINDINGS LMP: November 25, 2024. Number: 1 Position: Transverse right Placental Position: Fundal. Placental Abnormalities: No evidence of previa. DIMENSIONS: Biparietal Diameter: 4.59 cm: 19 weeks and 6 days: 45%/ Head Circumference: 17.46 cm: 20 weeks and 0 days: 41 percentile/ Abdominal Circumference: 14.93 cm: 20 weeks and 1 day: 50 percentile/ Femur Length: 3.18 cm: 19 weeks and 6 days: 38 percentile/ ESTIMATED WEIGHT: 329 g plus/-49 g ESTIMATED WEIGHT PERCENTILE (24+ weeks): 48 ESTIMATED GESTATIONAL AGE: Baseline: 20 weeks and 0 days By Ultrasound: 19 weeks and 6 days ESTIMATED DATE OF DELIVERY: Baseline: September 01, 2025 By Ultrasound: September 02, 2025 BIOPHYSICAL ASSESSMENT: Amniotic Fluid Volume: 3.9 cm Amniotic Fluid Index: Within normal limits. (8-24 cm normal range) Cardiac Motion: 147 beats per minute (average) Trunk and Limb Motion: Present. MATERNAL ANATOMY: Adnexa: Neither maternal ovary is successfully identified. Cervical Length (if measured): 3.6 cm ANATOMY: Spine: Unremarkable Cranium: Unremarkable Cerebellum: Unremarkable Cisterna Magna: Unremarkable Cavum Septum Pellucidi: Unremarkable Lateral Ventricles: Unremarkable Choroid Plexus: Unremarkable Midline Falx: Marker Nuchal Fold: Unremarkable Upper Lip: Unremarkable Heart: Unremarkable Ventricular Outflow Tracts: Unremarkable Stomach: Unremarkable Kidneys: Unremarkable Bladder: Unremarkable Umbilical Cord: Normal insertion. Extremities: Unremarkable US/OB Anatomy w/ Transvaginal IMPRESSION: Single live intrauterine gestation with a mean gestational age of 19 weeks and 6 days. Reading Location: [id number] CC: MAX Knight; Dr. 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 Serenity Matos DO Age/Sex: 29/F Location: [facility] [place] Status: Signed Intake Vital Signs 01/27/25 10:32 02/24/25 15:20 03/23/25 10:36 03/23/25 10:38 Height 5 ft 3 in 5 ft 3 in 5 ft 3 in 5 ft 3 in Weight: 142 lb 6 oz 144 lb 147 lb 8 oz BMI 25.2 25.4 26.1 BP 115/75 119/75 123/70 H Intake Visit Reasons: 17wk ob Training Generalist Required: No Is patient in pain?: No Allergies No Known Allergies Allergy (Verified 03/23/25 10:36) Medications ???Medication ???Instructions ???Recorded ???Confirmed ???Type PNV no.151-iron 27 mg-folic 800 cap PO 09/10/22 03/23/25 History mcg-omega3 260 gh-cqr-lpu-fish capsule omega-3 fatty acids 600 mg PO DAILY 04/10/23 03/23/25 History Last Menstrual Period: 11/24/24 Zika: Zika virus screening: Negative : No PFSH PFSH Medical History Galactosemia Biotinidase deficiency Abnormal biopsy result Family History Grandfather Cancer unknown type Grandmother Hypertension Ovarian cancer Paternal Grandfather Hypertension Grandmother Asthma Father Hypertension Social History adopted: No household members: spouse and children number of children: 2 current occupation: [employer] current occupational exposures/hazards: No pets and animals: Yes pets and animals: dog(s) and farm animals history of recent travel: No sexually active: Yes Smoking Status: Never smoker second hand exposure: No alcohol intake: never substance use type: does not use well-balanced diet: daily or most days caffeine: No eating out: rarely or never during the past year weight has: decreased > 10 lbs what type of physical activity do you participate in: walking frequency: 1-2 times per week duration: 15-30 minutes/day gabriela/restoration: Advent seatbelt use: always do you feel safe at home: Yes 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 Date Name GA/Weeks Outcome Route Bth Weight Infant Gen Labor Lgth Anesthesia Del Locatn Provider FOB Unknown 11/2020 spontaneous Unknown 12/2020 spontaneous 10/02/21 Renae 40 live - full term 9lbs 11oz Male [address] [facility] SM Bam 04/28/23 Ivethrosey Alba 38 live - full term [id number] Female epidural [facility] Rayna Knight Bam Delivery Date: 10/02/21 Last Updated by: Chacha Farmer SROM 40w SM Jacsindi Delivery Date: 04/28/23 Last Updated by: Sharda NUNEZ HPI 17wk ob Details: HEATHER ANGEL is a 29 year old who presents for routine OB visit. OB Visit RONEY Calculator Estimated Delivery Date Method Current WG Current Estimate 09/01/25 Ultrasound #1 16w 6d Other Estimates 08/31/25 LMP (Certain) 17w 0d Expected Delivery Route/Plan Labor Preferences- CB/BF classes: [] labor support person: [] labor intervention preferences: [] pain management options preferred: [] cut cord/dad catch: [] : [] PP control planned: [] discussed possible routes of delivery and associated risks: [] special requests: [] Specific Issue/Plans Covid status: [] Flu vaccine: [] Tdap vaccine: [] Rhogam: [] LARC form signed: [] Problem list reviewed and updated with the most current plan of care details and appropriate orders placed. Relevant counseling for the gestational age provided. Continue routine care and follow up unless otherwise noted in visit notes/problem list details Initial Weight: 142 lb Date -???-???-???-???-???-???-? ??-???-???-???-???-???- EGA Weight BP Urine Prot -???-???-???-???-???-???-? ??-???-???-???-???-???- Glucose FHR FuHt Pres Dilation -???-???-???-???-???-???-? ??-???-???-???-???-???- Effaced St Visit Note 01/27/25 -???-???-???-???-???-???-? ??-???-???-???-???-???- 9w 0d 142 lb 6 oz (+6 oz) 115/75 -???-???-???-???-???-???-? ??-???-???-???-???-???- 169 -???-???-???-???-???-???-? ??-???-???-???-???-???- KW- CRL cons with dates. denies nipt. lead exposure and requesting lead testing-added to NOB labs 02/24/25 -???-???-???-???-???-???-? ??-???-???-???-???-???- 13w 0d 144 lb (+2 lb) 119/75 Negative -???-???-???-???-???-???-? ??-???-???-???-???-???- Negative 150 (more content not included)... Normal [facility] - Chemistry and C hemistry - challengeOrdered By: Ana Wynne on 02-24-2025 Glucose Ql (U) Negative [facility] - UrinalysisOrder ed By: Ana Wynne on 02-24-2025 Protein Ql (U) Negative [facility] Tear Down Matcher Office Visit Reporton 02-24-2025 Tear Down Matcher Office Visit Report [facility]'s [address], [address] [place] [address] OFFICE VISIT Date of Service: 02/24/25 MR#: [id number] Acct: [id number] Name: HEATHER ANGEL Rep #: [id number] : 1995 Provider: Dr. Ana wolff MD Age/Sex: 29/F Location: [facility] [place] Status: Signed Intake Vital Signs 09/03/24 06:10 01/27/25 10:32 02/24/25 15:20 Height 5 ft 3 in 5 ft 3 in 5 ft 3 in Weight: 144 lb BMI 25.4 BP 119/75 Intake Visit Reasons: 13wk OB Training Generalist Required: No Is patient in pain?: No Allergies No Known Allergies Allergy (Verified 02/24/25 15:23) Medications ???Medication ???Instructions ???Recorded ???Confirmed ???Type PNV no.151-iron 27 mg-folic 800 cap PO 09/10/22 02/24/25 History mcg-omega3 260 vu-rnm-nir-fish capsule omega-3 fatty acids 600 mg PO DAILY 04/10/23 02/24/25 History Last Menstrual Period: 11/24/24 Zika: Zika virus screening: Negative : No PFSH PFSH Medical History Galactosemia Biotinidase deficiency Abnormal biopsy result Family History Grandfather Cancer unknown type Grandmother Hypertension Ovarian cancer Paternal Grandfather Hypertension Grandmother Asthma Father Hypertension Social History adopted: No household members: spouse and children number of children: 2 current occupation: [employer] current occupational exposures/hazards: No pets and animals: Yes pets and animals: dog(s) and farm animals history of recent travel: No sexually active: Yes Smoking Status: Never smoker second hand exposure: No alcohol intake: never substance use type: does not use well-balanced diet: daily or most days caffeine: No eating out: rarely or never during the past year weight has: decreased > 10 lbs what type of physical activity do you participate in: walking frequency: 1-2 times per week duration: 15-30 minutes/day gabriela/restoration: Advent seatbelt use: always do you feel safe at home: Yes 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 Date Name GA/Weeks Outcome Route Bth Weight Infant Gen Labor Lgth Anesthesia Del Locatn Provider FOB Unknown 11/2020 spontaneous Unknown 12/2020 spontaneous 10/02/21 Renae 40 live - full term 9lbs 11oz Male 23 epidural [facility] Bam 04/28/23 Iveth Alba 38 live - full term [id number] Female epidural [facility] Rayna Knight Bam Delivery Date: 10/02/21 Last Updated by: Chacha Farmer SROM 40w SM Renae Delivery Date: 04/28/23 Last Updated by: Sharda James IOL HPI 13wk OB Details: HEATHER ANGEL is a 29 year old who presents for routine OB visit. OB Visit RONEY Calculator Estimated Delivery Date Method Current WG Current Estimate 09/01/25 Ultrasound #1 13w 0d Other Estimates 08/31/25 LMP (Certain) 13w 1d Expected Delivery Route/Plan Labor Preferences- CB/BF classes: [] labor support person: [] labor intervention preferences: [] pain management options preferred: [] cut cord/dad catch: [] : [] PP control planned: [] discussed possible routes of delivery and associated risks: [] special requests: [] Specific Issue/Plans Covid status: [] Flu vaccine: [] Tdap vaccine: [] Rhogam: [] LARC form signed: [] Problem list reviewed and updated with the most current plan of care details and appropriate orders placed. Relevant counseling for the gestational age provided. Continue routine care and follow up unless otherwise noted in visit notes/problem list details Initial Weight: 142 lb Date -???-???-???-???-???-???-? ??-???-???-???-???-???- EGA Weight BP Urine Prot -???-???-???-???-???-???-? ??-???-???-???-???-???- Glucose FHR FuHt Pres Dilation -???-???-???-???-???-???-? ??-???-???-???-???-???- Effaced St Visit Note 01/27/25 -???-???-???-???-???-???-? ??-???-???-???-???-???- 9w 0d 142 lb 6 oz (+6 oz) 115/75 -???-???-???-???-???-???-? ??-???-???-???-???-???- 169 -???-???-???-???-???-???-? ??-???-???-???-???-???- KW- CRL cons with dates. denies nipt. lead exposure and requesting lead testing-added to NOB labs 02/24/25 -???-???-???-???-???-???-? ??-???-???-???-???-???- 13w 0d 144 lb (+2 lb) 119/75 Negative -???-???-???-???-???-???-? ??-???-???-???-???-???- Negative 150 -???-???-???-???-???-???-? ??-???-???-???-???-???- SM- no vb cr amping A (more content not included)... Normal [facility] Chlamydia/GC AUDRA aptimaon CHLAMY,NUC ACID Negative Normal Negative [facility] Comment on above: Performed By: #### L 0.1800, #### [facility] [address] [place], [place], [id number] GC BY NUC ACID Negative Normal Negative [facility] Comment on above: Result Comment: Perf ormed at: =G - [facility] [address] [id number] Magazine Filler: Whitley Anthony MD, Phone: [phone] Performed By: #### L 0.1800, .2199 #### [facility] [address] [place], [address] Urine Cultureon 01-30-2025 URC Below infection leve l. Mixed Gram Pos Gram Neg Org [place] Count <1000 MIXC Mixed contaminants. Submit a new specimen if indicated. Normal [facility] Comment on above: Performed By: #### L 7000.1800, M1.0 #### [facility] [address] [place], [address] Lead, Blood Adult 16+yrson 0 6-06-2025 LEAD,BLD ADULT < 1.0 Normal 0.0-3.4 [facility] Comment on above: Order Comment: Test( s) 554044-Qmfx, Blood (Adult)was developed and its performance characteristicsdetermined by [employer]. It has not been cleared or approvedby the Food and Drug Administration. Result Comment: Test ing performed by Inductively coupled plasma/Mass Spectrometry. Analysis by inductively coupled plasma/mass spectrometry (ICP/MS) Environmental Exposure: WHO Recommendation <5.0 Occupational Exposure: OSHA Lead Std 40.0 AARON 30.0 Detection Limit = 1.0 Performed at: [address] [id number] Magazine Filler: Brian Olivares PhD, Phone: [phone] Performed By: #### L 3890.6301, L509.4006, L509.8002, BTS, L3890.6006, L100.0100, L3100.6450, L3890.6102 ####[facility] [address] [place], [place], [id number] Absolute lymphocyte countOrd ered By: Jeanine Knight on 01-27-2025 Lymphocytes Auto (Unsp spec) [#/Vol] 1.49 10*3/uL 0.83-4.51 [facility] Absolute neutrophil countOrd ered By: Jeanine Knight on 01-27-2025 Neutrophils (Bld) [#/Vol] 3.1 10*3/uL 2.0-7.7 [facility] Automated lymphocyte count a s percentage of total leukocytesOrdered By: Jeanine Knight on 01-27-2025 Lymphocytes/100 WBC Auto (Unsp spec) 29.5 % 19-41 [facility] Basophil percentageOrdered B y: Jeanine Knight on 01-27-2025 Basophils/100 WBC (Bld) 0.8 % 0-1 [facility] CBC W/Diff, Automatedon Absolute Lymph 1.49 X10 3/uL Normal 0.83-4.51 [facility] Comment on above: Performed By: #### L 3890.6301, L509.4006, L509.8002, BTS, L3890.6006, L100.0100, L3100.6450, L3890.6102 #### [facility] [address] [place], [address] Absolute Neut 3.1 X10 3/uL Normal 2.0-7.7 [facility] Comment on above: Performed By: #### L 3890.6301, L509.4006, L509.8002, BTS, L3890.6006, L100.0100, L3100.6450, L3890.6102 #### [facility] [address] [place], [address] Basophils/100 WBC (Bld) 0.8 % Normal 0-1 [facility] Comment on above: Performed By: #### L 3890.6301, L509.4006, L509.8002, BTS, L3890.6006, L100.0100, L3100.6450, L3890.6102 #### [facility] [address] [place], [address] Eosinophils/100 WBC (Bld) 2.2 % Normal 0-5 [facility] Comment on above: Performed By: #### L 3890.6301, L509.4006, L509.8002, BTS, L3890.6006, L100.0100, L3100.6450, L3890.6102 #### [facility] [address] [place], [address] Erythrocyte distribution width (RBC) [Ratio] 11.5 % Low 11.6-14.6 [facility] Comment on above: Performed By: #### L 3890.6301, L509.4006, L509.8002, BTS, L3890.6006, L100.0100, L3100.6450, L3890.6102 #### [facility] [address] [place], [address] Hematocrit (Bld) [Volume fraction] 37.0 % Normal 37-47 [facility] Comment on above: Performed By: #### L 3890.6301, L509.4006, L509.8002, BTS, L3890.6006, L100.0100, L3100.6450, L3890.6102 #### [facility] [address] [place], [address] Hemoglobin (Bld) [Mass/Vol] 12.7 g/dL Normal 12.0-15.0 [facility] Comment on above: Performed By: #### L 3890.6301, L509.4006, L509.8002, BTS, L3890.6006, L100.0100, L3100.6450, L3890.6102 #### [facility] [address] [place], [address] IG% 0.200 Normal 0.0-0.9 [facility] Comment on above: Result Comment: IG% - Immature Granulocytes (promyelocytes, myelocytes and metamyelocytes) > 1% indicates that a LEFT SHIFT is Present. Performed By: #### L 3890.6301, L509.4006, L509.8002, BTS, L3890.6006, L100.0100, L3100.6450, L3890.6102 #### [facility] [address] [place], [address] Lymphocytes/100 WBC (Bld) 29.5 % Normal 19-41 [facility] Comment on above: Performed By: #### L 3890.6301, L509.4006, L509.8002, BTS, L3890.6006, L100.0100, L3100.6450, L3890.6102 #### [facility] [address] [place], [address] MCH (RBC) [Entitic mass] 28.9 pg Normal 27.0-32.0 [facility] Comment on above: Performed By: #### L 3890.6301, L509.4006, L509.8002, BTS, L3890.6006, L100.0100, L3100.6450, L3890.6102 #### [facility] [address] [place], [address] MCHC (RBC) [Mass/Vol] 34.3 g/dL Normal 32-36 [facility] Comment on above: Performed By: #### L 3890.6301, L509.4006, L509.8002, BTS, L3890.6006, L100.0100, L3100.6450, L3890.6102 #### [facility] [address] [place], [address] MCV (RBC) [Entitic vol] 84.3 fL Normal 81-99 [facility] Comment on above: Performed By: #### L 3890.6301, L509.4006, L509.8002, BTS, L3890.6006, L100.0100, L3100.6450, L3890.6102 #### [facility] [address] [place], [address] Monocytes/100 WBC (Bld) 5.9 % Normal 0-10 [facility] Comment on above: Performed By: #### L 3890.6301, L509.4006, L509.8002, BTS, L3890.6006, L100.0100, L3100.6450, L3890.6102 #### [facility] [address] [place], [address] Neutrophils/100 WBC (Bld) 61.4 % Normal 47-70 [facility] Comment on above: Performed By: #### L 3890.6301, L509.4006, L509.8002, BTS, L3890.6006, L100.0100, L3100.6450, L3890.6102 #### [facility] [address] [place], [address] Nucleated RBC (Bld) [#/Vol] 0 10*3/uL Normal 0-5 [facility] Comment on above: Performed By: #### L 3890.6301, L509.4006, L509.8002, BTS, L3890.6006, L100.0100, L3100.6450, L3890.6102 #### [facility] [address] [place], [address] Platelet mean volume (Bld) [Entitic vol] 10.5 fL Normal 6.2-12.0 [facility] Comment on above: Performed By: #### L 3890.6301, L509.4006, L509.8002, BTS, L3890.6006, L100.0100, L3100.6450, L3890.6102 #### [facility] [address] [place], [address] Platelets (Bld) [#/Vol] 163 10*3/uL Normal 150-450 [facility] Comment on above: Performed By: #### L 3890.6301, L509.4006, L509.8002, BTS, L3890.6006, L100.0100, L3100.6450, L3890.6102 #### [facility] [address] [place], [address] RBC (Bld) [#/Vol] 4.39 10*6/uL Normal 4.2-5.4 [facility] Comment on above: Performed By: #### L 3890.6301, L509.4006, L509.8002, BTS, L3890.6006, L100.0100, L3100.6450, L3890.6102 #### [facility] [address] [place], [address] RDW SD 35.3 fl Normal 35.1-43.9 [facility] Comment on above: Performed By: #### L 3890.6301, L509.4006, L509.8002, BTS, L3890.6006, L100.0100, L3100.6450, L3890.6102 #### [facility] [address] [place], [place], [id number] WBC (Bld) [#/Vol] 5.1 10*3/uL Normal 4.4-11.0 [facility] Comment on above: Performed By: #### L 3890.6301, L509.4006, L509.8002, BTS, L3890.6006, L100.0100, L3100.6450, L3890.6102 #### [facility] [address] [place], [place], [id number] Chlamydia trachomatis rRNA d etection by probe and target amplification methodOrdered By: Jeanine Knight on 01-27-2025 C. trachomatis rRNA AUDRA+probe Ql (Unsp spec) Negative Negative [facility] Eosinophil percentageOrdered By: Jeanine Knight on 01-27-2025 Eosinophils/100 WBC (Bld) 2.2 % 0-5 [facility] Erythrocyte distribution wid th ratioOrdered By: Jeanine Knight on 01-27-2025 Erythrocyte distribution width (RBC) [Ratio] 11.5 % Low 11.6-14.6 [facility] Erythrocyte distribution wid th standard deviationOrdered By: Jeanine Knight on 01-27-2025 Erythrocyte distribution width (RBC) [Ratio] 35.3 fl 35.1-43.9 [facility] HIVon 01-27-2025 HIV Non-Reactive Normal Nonreactive [facility] Comment on above: Result Comment: Non- Reactive Reactive Repeatedly reactive samples must be confirmed according to CDC recommended confirmatory algorithms. The subresults for either HIVAG or AHIV can be used as an aid in the selection of the confirmation algorithm for reactive samples. Send out specimens with Reactive results to [facility] for confirmation. Order the HIV antibody detection and differentiation: lc#[id number] Performed By: #### L 3890.6301, L509.4006, L509.8002, BTS, L3890.6006, L100.0100, L3100.6450, L3890.6102 ####[facility] [address] [place], [address] Hematocrit Auto (Bld) [Volum e fraction]Ordered By: Jeanine Knight on 01-27-2025 Hematocrit (Bld) [Volume fraction] 37.0 % 37-47 [facility] Hemoglobin measurementOrdere d By: Jeanine Knight on 01-27-2025 Hemoglobin (Bld) [Mass/Vol] 12.7 g/dL 12.0-15.0 [facility] Hepatitis C Antibodyon 01-27 Hepatitis C Ab Non-Reactive Normal Nonreactive [facility] Comment on above: Result Comment: Reac tive: Presumptive evidence of antibodies to HCV. Follow CDC recommendations for supplemental testing. Non-Reactive: Antibodies to HCV were not detected; does not exclude the possibility of exposure to HCV Reactive Results are presumptive evidence of antibodies to HCV. Follow CDC recommendations for supplemental testing. Order confirmation testing: HCV Quant by PCR testing - HCVPCR #[id number] Non Reactive: < 0.8 Equivocal: >/= 0.8 to < 1.0 Reactive: >/= 1.0 The CDC requires that a reactive/equivocal HCV antibody result be sent out for confirmation. HCV Quant by PCR testing. Performed By: #### L 3890.6301, L509.4006, L509.8002, BTS, L3890.6006, L100.0100, L3100.6450, L3890.6102 ####[facility] [address] [place], [place], [id number] Immature granulocytes/100 WB C Auto (Bld)Ordered By: Jeanine Knight on 01-27-2025 Immature granulocytes/100 WBC (Bld) 0.200 % 0.0-0.9 [facility] Comment on above: IG% - Immature Granu locytes (promyelocytes, myelocytes and metamyelocytes) > 1% indicates that a LEFT SHIFT is Present. L3890.6102on 01-27-2025 HEP B Surf Ag Non-Reactive Normal Nonreactive [facility] Comment on above: Result Comment: Reac tive: Presumptive evidence of HBV. Repeatedly reactive samples must be confirmed using a neutralization test ([employer] HBsAg Confirmatory Test) Non-Reactive: HBsAg not detected; does not exclude the possibility of exposure to HBV Performed By: #### L 3890.6301, L509.4006, L509.8002, BTS, L3890.6006, L100.0100, L3100.6450, L3890.6102 ####[facility] [address] [place], [place], [address] L509.4006on 01-27-2025 Rubella IgG REAC Normal Nonreactive [facility] Comment on above: Result Comment: Anti body Result: Interpretation Non-Reactive: Non-Immune Reactive: Immune The following results were obtained with the [employer] Rubella IgG assay. Results from assays of other manufacturers cannot be used interchangeably. Performed By: #### L 3890.6301, L509.4006, L509.8002, BTS, L3890.6006, L100.0100, L3100.6450, L3890.6102 #### [facility] [address] [place], [place], [id number] Laboratory - Microbiology an d Antimicrobial susceptibilityOrdered By: Jeanine Knight on 01-27-2025 HBV surface Ag Ql (S) Non-Reactive Nonreactive [facility] Comment on above: Reactive: Presumptiv e evidence of HBV. Repeatedly reactive samples must be confirmed using a neutralization test ([employer] HBsAg Confirmatory Test)Non-Reactive: HBsAg not detected; does not exclude the possibility of exposure to HBV MCV (mean corpuscular volume ) determinationOrdered By: Jeanine Knight on 01-27-2025 MCV (RBC) [Entitic vol] 84.3 fL 81-99 [facility] Mean corpuscular hemoglobin (MCH) determinationOrdered By: Jeanine Knight on 01-27-2025 MCH (RBC) [Entitic mass] 28.9 pg 27.0-32.0 [facility] Mean corpuscular hemoglobin concentration (MCHC) determinationOrdered By: Jeanine Knight on 01-27-2025 MCHC (RBC) [Mass/Vol] 34.3 g/dL 32-36 [facility] Mean platelet volume determi nationOrdered By: Jeanine Knight on 01-27-2025 Platelet mean volume (Bld) [Entitic vol] 10.5 fL 6.2-12.0 [facility] Monocyte percentageOrdered B y: Jeanine Knight on 01-27-2025 Monocytes/100 WBC (Bld) 5.9 % 0-10 [facility] Neisseria gonorrhoeae nuclei c acid detection by amplified probe techniqueOrdered By: Jeanine Knight on 01-27-2025 N. gonorrhoeae DNA AUDRA+probe Ql (Unsp spec) Negative Negative [facility] Comment on above: Performed at: =[address] [id number] Director: Whitley Anthony MD, Phone: [phone] Neutrophil percentageOrdered By: Jeanine Knight on 01-27-2025 Neutrophils/100 WBC (Bld) 61.4 % 47-70 [facility] No Panel InformationOrdered By: Jeanine Knight on 01-27-2025 HIV (1&2) Antibody Non-Reactive Nonreactive [facility] Comment on above: Non-ReactiveReactive Repeatedly reactive samples must be confirmed according to CDC recommended confirmatory algorithms. The subresults for either HIVAG or AHIV can be used as an aid in the selection of the confirmation algorithm for reactive samples.Send out specimens with Reactive results to [facility] for confirmation.Order the HIV antibody detection and differentiation: #[id number] Nucleated red blood cell per centageOrdered By: Jeanine Knight on 01-27-2025 Nucleated RBC/100 WBC (Bld) [Ratio] 0 % 0-5 [facility] Tear Down Matcher Office Visit Reporton 01-27-2025 Tear Down Matcher Office Visit Report [facility] [address], [address] [place] [address] OFFICE VISIT Date of Service: 01/27/25 MR#: [id number] Acct: [id number] Name: HEATHER ANGEL Rep #: [id number] : 1995 Provider: MAX Jerez ams Age/Sex: 29/F Location: [facility] Status: Signed Intake Vital Signs 09/03/24 06:10 01/27/25 10:32 Height 5 ft 3 in 5 ft 3 in Weight: 142 lb 6 oz BMI 25.2 BP 115/75 Intake Visit Reasons: NOB LMP 4/2 Chief Complaint: New OB Training Generalist Required: No Is patient in pain?: No Allergies No Known Allergies Allergy (Verified 01/27/25 10:30) Medications ???Medication ???Instructions ???Recorded ???Confirmed ???Type PNV no.151-iron 27 mg-folic 800 cap PO 09/10/22 01/27/25 History mcg-omega3 260 xb-owp-uby-fish capsule omega-3 fatty acids 600 mg PO DAILY 04/10/23 01/27/25 History Last Menstrual Period: 11/24/24 PFSH PFSH Medical History Galactosemia Biotinidase deficiency Abnormal biopsy result Family History Grandfather Cancer unknown type Grandmother Hypertension Ovarian cancer Paternal Grandfather Hypertension Grandmother Asthma Father Hypertension Social History adopted: No household members: spouse and children number of children: 2 current occupation: [employer] current occupational exposures/hazards: No pets and animals: Yes pets and animals: dog(s) and farm animals history of recent travel: No sexually active: Yes Smoking Status: Never smoker second hand exposure: No alcohol intake: never substance use type: does not use well-balanced diet: daily or most days caffeine: No eating out: rarely or never during the past year weight has: decreased > 10 lbs what type of physical activity do you participate in: walking frequency: 1-2 times per week duration: 15-30 minutes/day gabriela/restoration: Advent seatbelt use: always do you feel safe at home: Yes 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 Date Name GA/Weeks Outcome Route Bth Weight Gen Labor Lgth Anesthesia Del Locatn Provider FOB Unknown 11/2020 spontaneous Unknown 12/2020 spontaneous 10/02/21 Jacen 40 live - full term 9lbs 11oz Male [address] [facility] SM Bam 04/28/23 Iveth Alba 38 live - full term [id number] Female epidural [facility] Rayna Knight Bam Delivery Date: 10/02/21 Last Updated by: Chacha Farmer SROM 40w SM Renae Delivery Date: 04/28/23 Last Updated by: Sharda James IOL HPI NOB LMP 11/24 Details: HEATHER ANGEL is a 29 year old who presents for New OB visit. OB Visit RONEY Calculator Estimated Delivery Date Method Current WG Current Estimate 09/01/25 Ultrasound #1 9w 0d Other Estimates 08/31/25 LMP (Certain) 9w 1d Estimated Due Date: 08/31/26 Expected Delivery Route/Plan Labor Preferences- CB/BF classes: [] labor support person: [] labor intervention preferences: [] pain management options preferred: [] cut cord/dad catch: [] : [] PP control planned: [] discussed possible routes of delivery and associated risks: [] special requests: [] Specific Issue/Plans Covid status: [] Flu vaccine: [] Tdap vaccine: [] Rhogam: [] LARC form signed: [] Problem list reviewed and updated with the most current plan of care details and appropriate orders placed. Relevant counseling for the gestational age provided. Continue routine care and follow up unless otherwise noted in visit notes/problem list details Initial Weight: 142 lb Date -???-???-???-???-???-???-? ??-???-???-???-???-???- EGA Weight BP Urine Prot -???-???-???-???-???-???-? ??-???-???-???-???-???- Glucose FHR FuHt Pres Dilation -???-???-???-???-???-???-? ??-???-???-???-???-???- Effaced St Visit Note 01/27/25 -???-???-???-???-???-???-? ??-???-???-???-???-???- 9w 0d 142 lb 6 oz (+6 oz) 115/75 -???-???-???-???-???-???-? ??-???-???-???-???-???- 169 -???-???-???-???-???-???-? ??-???-???-???-???-???- KW- CRL cons with dates. denies nipt. lead exposure and requesting lead testing-added to NOB labs Menstrual History Last Menstrual Period: 11/24/24 Reported LMP: definite Normal amount/duration: Yes Frequency in days: 30 On hormonal BC at conception: No hCG+: 12/21/24 Antepartum Record Genetic Screening: Congenital Heart Defect: Other, Neural Tube Defect: Other, Hemoglobi (more content not included)... Normal [facility] Platelet countOrdered By: Merlin Knight on 01-27-2025 Platelets (Bld) [#/Vol] 163 10*3/uL 150-450 [facility] RBC Auto (Bld) [#/Vol]Ordere d By: Jeanine Knight on 01-27-2025 RBC (Bld) [#/Vol] 4.39 10*6/uL 4.2-5.4 [facility] Syphilis Antibodieson 2024 Syphilis Abs Non-Reactive Normal Nonreactive [facility] Comment on above: Performed By: #### L 3890.6301, L509.4006, L509.8002, BTS, L3890.6006, L100.0100, L3100.6450, L3890.6102 ####[facility] [address] [place], [address] Type AND Screenon 01-27-2025 Ab SCREEN GEL Negative Normal [facility] Comment on above: Order Comment: PN Performed By: #### L 3890.6301, L509.4006, L509.8002, BTS, L3890.6006, L100.0100, L3100.6450, L3890.6102 #### [facility] [place], [address] Urine cultureOrdered By: Gerard Knight on 01-27-2025 Bacteria identified Cx Nom (U) Mixed Gram Pos & Gram Neg Org Abnormal [facility] White blood cell (WBC) count Ordered By: Jeanine Knight on 01-27-2025 WBC (Bld) [#/Vol] 5.1 10*3/uL 4.4-11.0 [facility] CNOVon 09-14-2024 CNOV Office Visit (UCWSTR ) -- HEATHER ANGEL ([id number]) 1995 F Date Time Provider Department 09/14/24 7:30 PM LEIA MCDONOUGH [facility] During your visit today, we recorded the following information about you: Temperature Pulse Respiration Blood pressure 99.2 degrees 112/minute 16/minute 110/72 Weight 64.3 kg Leia Mcdonough APRN.ELECTRICAL SIGN WIRER 09/14/2024 7:54 PM Signed Subjective Male with complaints of itching rash all over her entire body. It is in different sections. Patient says she did use some new gain beads. Patient did eat fish that she does not normally eat. Patient denies any difficulty breathing or swallowing. Patient denies any other symptoms at this time. The history is provided by the patient. No russian language professor was used. Rash Review of Systems Constitutional: Negative. Skin: Positive for itching and rash. Objective Physical Exam Constitutional: Appearance: Normal appearance. Pulmonary: Effort: Pulmonary effort is normal. Skin: Comments: Erythematous red bumps located in the areas marked above. Do not appear to be infectious. Blanchable. Neurological: Mental Status: She is alert. No past medical history on file. No past surgical history on file. ALLERGIES Patient has no known allergies. MEDICATIONS Docosahexanoic Acid 200 mg cap Take by mouth. predniSONE (DELTASONE) 10 mg tablet Take 4 tabs daily for 3 days, then 2 tabs daily for 3 days, then 1 tab daily for 3 days with food. famotidine (PEPCID) 20 mg tablet Take 1 tablet by mouth two times a day for 7 days. sucralfate (CARAFATE) 1 gram tablet Take 1 tablet by mouth before meals and at bedtime. (Patient not taking: Reported on 01/22/2021 ) albuterol HFA (PROAIR HFA) 90 mcg/actuation inhaler Inhale 2 Puffs as instructed every 4 hours as needed. (Patient not taking: Reported on 05/14/2019 ) albuterol HFA (PROVENTIL HFA, VENTOLIN HFA) 90 mcg/actuation inhaler Inhale 2 Puffs as instructed every 4 hours as needed. (Patient not taking: Reported on 05/14/2019 ) No family history on file. Social History Tobacco Use Smoking status: Never Smokeless tobacco: Never ASSESSMENT/PLAN: 1. Sore throat - ICD9: 462, ICD10: J02.9 (primary diagnosis) - STREP A MOLECULAR (POC) - neg 2. Rash - ICD9: 782.1, ICD10: R21 - PREDNISONE 10 MG TABLET - FAMOTIDINE 20 MG TABLET - LYME AB EARLY <=30 DAY SYMPTOMS [place] So did add a Lyme just to rule that out. Patient educated about proper use of medication and supportive therapies. Patient will follow-up with signs and symptoms seem to be getting worse not better. Patient agreeable to care plan. Leia cMdonough APRN.ELECTRICAL SIGN WIRER Allergies As of Date: 09/14/2024 (No Known Allergies) Date Reviewed: 09/14/2024 Reviewed by: Tova Ibrahim MA - Fully Assessed Reason for Visit: Rash [1087] Cmt: all over x 1 day Primary Visit Diagnosis:Sore throat [J02.9] Other Visit Diagnosis:Rash [R21] Order(s):STREP A MOLECULAR (POC) [9008672] Order #: [id number]. #:[id number] 1-LAB predniSONE (DELTASONE) 10 mg tabletTake 4 tabs daily for 3 days, then 2 tabs daily for 3 days, then 1 tab daily for 3 days with food.Disp: 21 tabletRfl: 0 famotidine (PEPCID) 20 mg tabletTake 1 tablet by mouth two times a day for 7 days.Disp: 14 tabletRfl: 0 LYME AB EARLY <=30 DAY SYMPTOMS [SQLMERLY] Order #: [id number] FUTURE Prescriptions as of 09/14/2024 - Docosahexanoic Acid 200 mg cap Take by mouth. - predniSONE (DELTASONE) 10 mg tablet Take 4 tabs daily for 3 days, then 2 tabs daily for 3 days, then 1 tab daily for 3 days with food. - famotidine (PEPCID) 20 mg tablet Take 1 tablet by mouth two times a day for 7 days. - sucralfate (CARAFATE) 1 gram tablet Take 1 tablet by mouth before meals and at bedtime. - albuterol HFA (PROAIR HFA) 90 mcg/actuation inhaler Inhale 2 Puffs as instructed every 4 hours as needed. - albuterol HFA (PROVENTIL HFA, VENTOLIN HFA) 90 mcg/actuation inhaler Inhale 2 Puffs as instructed every 4 hours as needed. Problem List As Of Date: 09/14/2024 (None) Prescriptions ordered this encounter Disp Refills Start End PREDNISONE 10 MG TABLET 21 t* 0 09/14/2024 09/23/2024 Sig: Take 4 tabs daily for 3 days, then 2 tabs daily for 3 days, then 1 tab daily for 3 days with food. FAMOTIDINE 20 MG TABLET 14 t* 0 09/14/2024 09/21/2024 Route: ORAL Sig: Take 1 tablet by mouth two times a day for 7 days. Encounter Status:Closed by LEIA MCDONOUGH on 09/14/24 Normal [facility] STREP A MOLECULAR (POC)on Procedural Control Valid [facility] Strep A (POCT) Negative Negative [facility] Urine Cultureon 09-04-2024 [facility] Culture exhibits no growth. Normal [facility] Comment on above: Performed By: #### M 100.2200 #### [facility] [address] [place], [address] Urgent Care Visit Reporton 0 09-03-2024 Urgent Care Visit Report [facility] [address] [place] [address] OFFICE VISIT Date of Service: 09/03/24 MR#: [id number] Acct: [id number] Name: HEATHER ANGEL Rep #: [id number] : 1995 Provider: HOWARD Zimmer Age/Sex: 29/F Location: [facility] [place] Status: Signed Intake Vital Signs 06/08/24 08:55 09/03/24 06:10 Height 5 ft 3 in 5 ft 3 in BP 104/58 L Blood Pressure Location Lt brachial Position Sitting Respiration 14 Pulse 78 Pulse Source NIBP Temp 97.8 F Temp Source Oral Pulse Oximetry (%) 100 Oxygen Delivery Method room air Intake Visit Reasons: Urinary tract infection Chief Complaint: dysuria, urgency Training Generalist Required: No Is patient in pain?: No Allergies No Known Allergies Allergy (Verified 09/03/24 06:26) Is last menstrual period known: No Post menopausal: No Patient : No Have you fallen in the past year?: No Nurse's Note: dysuria, urgency since 0300. denies abd pain, back pain, fever, blood. 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 Family History Grandfather Cancer unknown type Grandmother Hypertension Ovarian cancer Paternal Grandfather Hypertension Grandmother Asthma Social History adopted: No household members: spouse and children number of children: 1 current occupational status: unemployed current occupation: [employer] pets and animals: Yes pets and animals: dog(s) history of recent travel: No sexually active: Yes Smoking Status: Never smoker alcohol intake: never substance use type: does not use well-balanced diet: daily or most days caffeine: No eating out: rarely or never during the past year weight has: decreased > 10 lbs what type of physical activity do you participate in: none gabriela/restoration: Advent seatbelt use: always do you feel safe at home: Yes 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 Patient states she has also had increased urinary urgency and frequency. She denies fever, chills, sweats. No pelvic or abdominal pain. No loss of bowel or bladder control. No other associated symptoms or alleviating/aggravating factors. ROS Const Constitutional: No other (as above) Exam Const General: cooperative and healthy appearing Resp Effort Inspection: normal respiratory effort Auscultation: Bilateral: Clear to Auscultation Cardio Rate: regular rate Rhythm: regular rhythm GI Auscultation: normal bowel sounds General: No CVA tenderness Psych Appearance: grossly normal Mental Status: mental status grossly normal Results POC Urine Office , Urine Negative Last Edit by Allie Mcdonough on 09/03/24 06:37 POC Urinalysis Dip (Clinic) Office Urine Color Yellow Last Edit by Allie Mcdonough on 09/03/24 06:37 Office Urine Clarity Cloudy Last Edit by Allie Mcdonough on 09/03/24 06:37 Office Urine Glucose Negative Last Edit by Allie Mcdonough on 09/03/24 06:37 Office Urine Ketones Negative Last Edit by Allie Mcdonough on 09/03/24 06:37 Off Ur Spec [place] 1.005 Last Edit by Allie Mcdonough on 09/03/24 06:37 Office Urine pH 7.0 Last Edit by Allie Mcdonough on 09/03/24 06:37 Office Urine Bilirubin Negative Last Edit by Allie Mcdonough on 09/03/24 06:37 Office Urine Urobilinogen Negative Last Edit by Allie Mcdonough on 09/03/24 06:37 Office Urine Blood Large Last Edit by Allie Mcdonough on 09/03/24 06:37 Office Urine Blood Hemolyzed Large Last Edit by Allie Mcdonough on 09/03/24 06:37 Office Urine Protein Trace Last Edit by Allie Mcdonough on 09/03/24 06:37 Office Urine Nitrate Negative Last Edit by Allie Mcdonough on 09/03/24 06:37 Off Ur Leukocytes Positive Last Edit by Allie Mcdonough on 09/03/24 06:37 Coding Level of Care Code Off vis,new,level 3 Diagnoses Urinary tract infection N39.0 Assessment and Plan Assessment and Plan (1) Urinary tract infection: Orders: Orders POC Urinalysis Dip (Clinic) Today R30.0 - Dysuria POC Urine Today R30.0 - Dysuria Culture, Urine Today R30.0 - Dysuria Medications: New nitrofurantoin monohyd/m-cryst 100 mg administer with a meal/food; swallow whole; do (more content not included)... Normal [facility] PAP I-G w/rfx hrHPV-Aptimaon 06-12-2024 ADEQ Comment Normal . [facility] Comment on above: Order Comment: Speci men Comment: [id number] Specimen Comment: Source.............Cervix Specimen Comment: LMP / Prev Treat...[id number] Specimen Comment: No. of containers..01 ThinPrep Vial Result Comment: Sati sfactory for evaluation. Endocervical and/or squamous metaplastic cells (endocervical component) are present. Performed By: #### L 7400.0353 #### [facility] [address] [place], [place], [id number] COMM . Normal . [facility] Comment on above: Order Comment: Speci men Comment: [id number] Specimen Comment: Source.............Cervix Specimen Comment: LMP / Prev Treat...[id number] Specimen Comment: No. of containers..01 ThinPrep Vial Performed By: #### L 7400.0353 #### [facility] [address] [place], [place], [id number] COMMENT Comment Normal . [facility] Comment on above: Order Comment: Speci men Comment: [id number] Specimen Comment: Source.............Cervix Specimen Comment: LMP / Prev Treat...[id number] Specimen Comment: No. of containers..01 ThinPrep Vial Result Comment: This liquid based ThinPrep(R) pap test was screened with the use of an image guided system. Performed By: #### L 7400.0353 #### [facility] [address] [address] [place], [place], [id number] DIAG Comment Normal . [facility] Comment on above: Order Comment: Speci men Comment: [id number] Specimen Comment: Source.............Cervix Specimen Comment: LMP / Prev Treat...[id number] Specimen Comment: No. of containers..01 ThinPrep Vial Result Comment: NEGA TIVE FOR INTRAEPITHELIAL LESION OR MALIGNANCY. Performed By: #### L 7400.0353 #### [facility] [address] [place], [address] HPV RFLX Comment Normal . [facility] Comment on above: Order Comment: Speci men Comment: [id number] Specimen Comment: Source.............Cervix Specimen Comment: LMP / Prev Treat...[id number] Specimen Comment: No. of containers..01 ThinPrep Vial Result Comment: The HPV DNA reflex criteria were not met with this specimen result therefore, no HPV testing was performed. Performed at: - [address] [id number] Magazine Filler: Whitley Anthony MD, Phone: [phone] Performed By: #### L 7400.0353 #### [facility] [address] [place], [place], [id number] PAPSMR Comment Normal . [facility] Comment on above: Order Comment: Speci men Comment: [id number] Specimen Comment: Source.............Cervix Specimen Comment: LMP / Prev Treat...[id number] Specimen Comment: No. of containers..01 ThinPrep Vial Result Comment: The Pap smear is a screening test designed to aid in the detection of premalignant and malignant conditions of the uterine cervix. It is not a diagnostic procedure and should not be used as the sole means of detecting cervical cancer. Both false-positive and false-negative reports do occur. Performed By: #### L 7400.0353 #### [facility] [address] [place], [place], [address] PERFORM Comment Normal . [facility] Comment on above: Order Comment: Speci men Comment: [id number] Specimen Comment: Source.............Cervix Specimen Comment: LMP / Prev Treat...[id number] Specimen Comment: No. of containers..01 ThinPrep Vial Result Comment: Qamar Vilchis Mortar Mixer Performed By: #### L 7400.0353 #### [facility] [address] 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) Chief Complaint: Annual Training Generalist Required: No Is patient in pain?: No Allergies No Known Allergies Allergy (Verified 06/08/24 08:50) Medications ???Medication ???Instructions ???Recorded ???Confirmed ???Type PNV no.151-iron 27 mg-folic 800 cap PO 09/10/22 06/08/24 History mcg-omega3 260 th-bnq-rll-fish capsule ascorbic acid (vitamin C) 250 mg 250 mg PO DAILY 04/10/23 06/08/24 History tablet (Vitamin C) omega-3 fatty acids 600 mg PO DAILY 04/10/23 06/08/24 History Is last menstrual period known: Yes Last Menstrual Period: 05/10/24 Post menopausal: No Patient : No : Yes [facility] Medical History Gestational thrombocytopenia Rh negative state in antepartum period Urinary tract infection with hematuria Vaginal delivery 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 Family History Grandfather Cancer unknown type Grandmother Hypertension Ovarian cancer Paternal Grandfather Hypertension Grandmother Asthma Social History adopted: No household members: spouse and children number of children: 1 current occupational status: unemployed current occupation: [employer] pets and animals: Yes pets and animals: dog(s) history of recent travel: No sexually active: Yes Smoking Status: Never smoker alcohol intake: never substance use type: does not use well-balanced diet: daily or most days caffeine: No eating out: rarely or never during the past year weight has: decreased > 10 lbs what type of physical activity do you participate in: none gabriela/restoration: Advent seatbelt use: always do you feel safe at home: Yes 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 Date Name GA/Weeks Outcome Route Bth Weight Infant Gen Labor Lgth Anesthesia Del Locatn Provider FOB Unknown 11/2020 spontaneous Unknown 12/2020 spontaneous Unknown 08/2021 Ismaelsindi 40 live - full term 9lbs 11oz Male 23 epidural [facility] 04/28/23 Iveth Alba 38 live - full term [id number] Female [facility] Rayna Knight Delivery Date: Last Updated by: Chacha Farmer SROM 40w SM Renae Delivery Date: 04/28/23 Last Updated by: Sharda NUNEZ HPI Encounter for routine gynecological examination Details: HEATHER ANGEL is a 29 year old who presents for annual exam. Denies concerns. Still . Menses started 3 mo ago and regular. Condoms for contraception Last PAP: 2020 History of abnormal PAP: no Last mammogram: age 41 Female Reproductive History Last Menstrual Period: 05/10/24 Cycle Length: 21-35 Questions: metorrhagia: No, sexually active: Yes, dyspareunia: No and PCB: No ROS Const Constitutional: Denies fatigue, weight gain or weight loss Cardio Card: Denies chest pain Resp Resp: Denies cough or dyspnea on exertion GI GI: Denies abdominal pain, bloating, change in stool character, constipation or vomiting : Reports as per HPI; Denies difficulty voiding, pelvic pain, urinary frequency, urinary incontinence, urinary urgency, vaginal discharge or vaginal pruritus Exam Const General: cooperative, healthy appearing, no acute distress and well developed Orientation: alert, oriented to person and oriented to place HENID Head: normal to inspection Neck Neck: normal visual inspection Thyroid: thyroid normal Lymphatic: no lymphadenopathy noted Chest Breast inspection: normal inspection of the breasts and normal inspection of the axillae Breast palpation: normal palpation of the breasts, normal palpation of the axillae and no axillary lymphadenopathy Resp Effort Inspection: normal respiratory effort GI Palpation: soft, no masses and nontender Rectal Exam: deferred External Female Exam: normal external appearance and normal appearance of the urethra Urethra: normal appearance of the urethra and no (more content not included)... Normal [facility] Absolute lymphocyte countOrd ered By: Jeanine Knight on 04-28-2023 Lymphocytes Auto (Unsp spec) [#/Vol] 1.74 10*3/uL 0.83-4.51 [facility] Basophil percentageOrdered B y: Jeanine Knight on 04-28-2023 Basophils/100 WBC (Bld) 0.3 % 0-1 [facility] Eosinophils/100 WBC (Bld) 0.7 % 0-5 [facility] Neutrophils (Bld) [#/Vol] 6.3 10*3/uL 2.0-7.7 [facility] Neutrophils/100 WBC (Bld) 72.6 % 47-70 [facility] WBC (Bld) [#/Vol] 8.7 10*3/uL 4.4-11.0 [facility] Blood erythrocytes count (nu mber/volume)Ordered By: Jeanine Knight on 04-28-2023 RBC (Bld) [#/Vol] 4.01 10*6/uL 4.2-5.4 [facility] Blood hemoglobin measurement (mass/volume)Ordered By: Jeanine Knight on 04-28-2023 Hemoglobin (Bld) [Mass/Vol] 11.8 g/dL 12.0-15.0 [facility] Blood lymphocytes/100 leukoc ytesOrdered By: Jeanine Knight on 04-28-2023 Lymphocytes/100 WBC (Bld) 20.0 % 19-41 [facility] Blood monocytes/100 leukocyt esOrdered By: Jeanine Knight on 04-28-2023 Monocytes/100 WBC (Bld) 5.9 % 0-10 [facility] Blood platelet mean volumeOr dered By: Jeanine Knight on 04-28-2023 Platelet mean volume (Bld) [Entitic vol] 11.5 fL 6.2-12.0 [facility] Determination of erythrocyte mean corpuscular volume (MCV)Ordered By: Jeanine Knight on 04-28-2023 MCV (RBC) [Entitic vol] 88.5 fL 81-99 [facility] Hematocrit Auto (Bld) [Volum e fraction]Ordered By: Jeanine Knight on 04-28-2023 Hematocrit (Bld) [Volume fraction] 35.5 % 37-47 [facility] - Hematology and Cell countsOrdered By: Jeanine Knight on 04-28-2023 Erythrocyte distribution width (RBC) [Entitic vol] 39.4 fL 35.1-43.9 [facility] Erythrocyte distribution width (RBC) [Ratio] 12.2 % 11.6-14.6 [facility] Immature granulocytes/100 WBC (Bld) 0.500 % 0.0-0.9 [facility] Comment on above: IG% - Immature Granu locytes (promyelocytes, myelocytes and metamyelocytes) > 1% indicates that a LEFT SHIFT is Present. MCH (RBC) [Entitic mass] 29.4 pg 27.0-32.0 [facility] Nucleated RBC/100 WBC (Bld) [Ratio] 0 % 0-5 [facility] MCHC Auto (RBC) [Mass/Vol]Or dered By: Jeanine Knight on 04-28-2023 MCHC (RBC) [Mass/Vol] 33.2 g/dL 32-36 [facility] Platelets bldOrdered By: Gerard Knight on 04-28-2023 Platelets (Bld) [#/Vol] 123 10*3/uL 150-450 [facility] - Chemistry and C hemistry - challengeon 04-22-2023 Glucose Ql (U) Negative [facility] - Urinalysison Protein Ql (U) Negative [facility] Absolute lymphocyte countOrd ered By: Ana Wynne on 04-15-2023 Lymphocytes Auto (Unsp spec) [#/Vol] 1.90 10*3/uL 0.83-4.51 [facility] Basophil percentageOrdered B y: Ana Wynne on 04-15-2023 Basophils/100 WBC (Bld) 0.3 % 0-1 [facility] Eosinophils/100 WBC (Bld) 0.6 % 0-5 [facility] Neutrophils (Bld) [#/Vol] 4.2 10*3/uL 2.0-7.7 [facility] Neutrophils/100 WBC (Bld) 62.1 % 47-70 [facility] WBC (Bld) [#/Vol] 6.8 10*3/uL 4.4-11.0 [facility] Blood erythrocytes count (nu mber/volume)Ordered By: Ana Wynne on 04-15-2023 RBC (Bld) [#/Vol] 3.97 10*6/uL 4.2-5.4 [facility] Blood hemoglobin measurement (mass/volume)Ordered By: Ana Wynne on 04-15-2023 Hemoglobin (Bld) [Mass/Vol] 11.8 g/dL 12.0-15.0 [facility] Blood lymphocytes/100 leukoc ytesOrdered By: Ana Wynne on 04-15-2023 Lymphocytes/100 WBC (Bld) 27.9 % 19-41 [facility] Blood monocytes/100 leukocyt esOrdered By: Ana Wynne on 04-15-2023 Monocytes/100 WBC (Bld) 8.4 % 0-10 [facility] Blood platelet mean volumeOr dered By: Ana Wynne on 04-15-2023 Platelet mean volume (Bld) [Entitic vol] 10.9 fL 6.2-12.0 [facility] Determination of erythrocyte mean corpuscular volume (MCV)Ordered By: Ana Wynne on 04-15-2023 MCV (RBC) [Entitic vol] 89.2 fL 81-99 [facility] Hematocrit Auto (Bld) [Volum e fraction]Ordered By: Ana Wynne on 04-15-2023 Hematocrit (Bld) [Volume fraction] 35.4 % 37-47 [facility] - Chemistry and C hemistry - challengeon 04-15-2023 Glucose Ql (U) Negative [facility] - Hematology and Cell countsOrdered By: Ana Wynne on 04-15-2023 Erythrocyte distribution width (RBC) [Entitic vol] 40.2 fL 35.1-43.9 [facility] Erythrocyte distribution width (RBC) [Ratio] 12.3 % 11.6-14.6 [facility] Immature granulocytes/100 WBC (Bld) 0.700 % 0.0-0.9 [facility] Comment on above: IG% - Immature Granu locytes (promyelocytes, myelocytes and metamyelocytes) > 1% indicates that a LEFT SHIFT is Present. MCH (RBC) [Entitic mass] 29.7 pg 27.0-32.0 [facility] Nucleated RBC/100 WBC (Bld) [Ratio] 0 % 0-5 [facility] - Urinalysison Protein Ql (U) Negative [facility] MCHC Auto (RBC) [Mass/Vol]Or dered By: Ana Wynne on 04-15-2023 MCHC (RBC) [Mass/Vol] 33.3 g/dL 32-36 [facility] No Panel InformationOrdered By: Ana Wynne on 04-15-2023 Group B Streptococcus Culture Group B Beta Streptococcus is not isolated. [facility] Platelets bldOrdered By: Honorio rodrick Wynne on 04-15-2023 Platelets (Bld) [#/Vol] 132 10*3/uL 150-450 [facility] Basophil percentageOrdered B y: Jeanine Knight on 04-10-2023 Basophil percentage 0 SEEN /hpf 0-5 [facility] Bilirubin Test strip Ql (U)O rdered By: Jeanine Knight on 04-10-2023 Bilirubin Ql (U) Negative Negative [facility] Ketones Test strip Ql (U)Ord ered By: Jeanine Knight on 04-10-2023 Ketones Ql (U) Negative Negative [facility] Mucus LM Ql (Urine sed)Order ed By: Jeanine Knight on 04-10-2023 Mucus Ql (Urine sed) 0 SEEN /hpf [facility] Nitrite Test strip Ql (U)Ord ered By: Jeanine Knight on 04-10-2023 Nitrite Ql (U) Negative Negative [facility] Protein Test strip Ql (U)Ord ered By: Jeanine Knight on 04-10-2023 Protein Ql (U) Negative Negative [facility] Squamous epithelial cells de tection in urine sediment by light microscopyOrdered By: Jeanine Knight on 04-10-2023 Epithelial cells.squamous LM Ql (Urine sed) 0 SEEN /hpf 5-10 [facility] Urine blood detectionOrdered By: Jeanine Kngiht on 04-10-2023 RBC Ql (U) Negative Negative [facility] RBC Ql (U) 0 SEEN /hpf 0-5 [facility] Urine clarityOrdered By: Gerard Knight on 04-10-2023 Clarity (U) Clear Clear [facility] Urine color determinationOrd ered By: Jeanine Knight on 04-10-2023 Color (U) Yellow Yellow [facility] Urine glucose detectionOrder ed By: Jeanine Knight on 04-10-2023 Glucose Ql (U) Normal mg/dl Normal [facility] Urine leukocyte esterase det ection by dipstickOrdered By: Jeanine Knight on 04-10-2023 Leukocyte esterase Test strip Ql (U) 25 /ul Negative [facility] Urine pHOrdered By: Jeanine mcfarland on 04-10-2023 pH (U) 7.0 [pH] 5.0 - 8.0 [facility] Urine sediment bacteria coun t by microscopy (number/high power field)Ordered By: Jeanine Knight on 04-10-2023 Bacteria LM.HPF (Urine sed) [#/Area] 0 /[HPF] None Seen [facility] Urine specific gravity measu rementOrdered By: Jeanine Knight on 04-10-2023 Specific gravity (U) [Rel density] 1.010 1.002-1.030 [facility] Urobilinogen Auto test strip Ql (U)Ordered By: Jeanine Knight on 04-10-2023 Urobilinogen Ql (U) Normal mg/dl Normal [facility] - Chemistry and C hemistry - challengeon 04-01-2023 Glucose Ql (U) Negative [facility] - Urinalysison Protein Ql (U) Negative [facility] Absolute lymphocyte countOrd ered By: Aspen Morrison on 03-18-2023 Lymphocytes Auto (Unsp spec) [#/Vol] 1.52 10*3/uL 0.83-4.51 [facility] Basophil percentageOrdered B y: Aspen Morrison on 03-18-2023 Basophils/100 WBC (Bld) 0.4 % 0-1 [facility] Eosinophils/100 WBC (Bld) 1.5 % 0-5 [facility] Neutrophils (Bld) [#/Vol] 4.6 10*3/uL 2.0-7.7 [facility] Neutrophils/100 WBC (Bld) 68.1 % 47-70 [facility] WBC (Bld) [#/Vol] 6.8 10*3/uL 4.4-11.0 [facility] Blood erythrocytes count (nu mber/volume)Ordered By: Aspen Morrison on 03-18-2023 RBC (Bld) [#/Vol] 4.00 10*6/uL 4.2-5.4 [facility] Blood hemoglobin measurement (mass/volume)Ordered By: Aspen oMrrison on 03-18-2023 Hemoglobin (Bld) [Mass/Vol] 11.8 g/dL 12.0-15.0 [facility] Blood lymphocytes/100 leukoc ytesOrdered By: Aspen Morrison on 03-18-2023 Lymphocytes/100 WBC (Bld) 22.3 % 19-41 [facility] Blood monocytes/100 leukocyt esOrdered By: Aspen Morrison on 03-18-2023 Monocytes/100 WBC (Bld) 7.3 % 0-10 [facility] Blood platelet mean volumeOr dered By: Aspen Morrison on 03-18-2023 Platelet mean volume (Bld) [Entitic vol] 10.7 fL 6.2-12.0 [facility] Determination of erythrocyte mean corpuscular volume (MCV)Ordered By: Aspen Morrison on 03-18-2023 MCV (RBC) [Entitic vol] 89.3 fL 81-99 [facility] Hematocrit Auto (Bld) [Volum e fraction]Ordered By: Aspen Morrison on 03-18-2023 Hematocrit (Bld) [Volume fraction] 35.7 % 37-47 [facility] - Chemistry and C hemistry - challengeon 03-18-2023 Glucose Ql (U) Negative [facility] - Hematology and Cell countsOrdered By: Aspen Morrison on 03-18-2023 Erythrocyte distribution width (RBC) [Entitic vol] 39.7 fL 35.1-43.9 [facility] Erythrocyte distribution width (RBC) [Ratio] 12.1 % 11.6-14.6 [facility] Immature granulocytes/100 WBC (Bld) 0.400 % 0.0-0.9 [facility] Comment on above: IG% - Immature Granu locytes (promyelocytes, myelocytes and metamyelocytes) > 1% indicates that a LEFT SHIFT is Present. MCH (RBC) [Entitic mass] 29.5 pg 27.0-32.0 [facility] Nucleated RBC/100 WBC (Bld) [Ratio] 0 % 0-5 [facility] - Urinalysison Protein Ql (U) Negative [facility] MCHC Auto (RBC) [Mass/Vol]Or dered By: Aspen Morrison on 03-18-2023 MCHC (RBC) [Mass/Vol] 33.1 g/dL 32-36 [facility] Platelets bldOrdered By: Diana Morrison on 03-18-2023 Platelets (Bld) [#/Vol] 134 10*3/uL 150-450 [facility] - Chemistry and C hemistry - challengeon 03-04-2023 Glucose Ql (U) Negative [facility] - Urinalysison Protein Ql (U) Negative [facility] Absolute lymphocyte countOrd ered By: Jeanine Knight on 02-18-2023 Lymphocytes Auto (Unsp spec) [#/Vol] 1.45 10*3/uL 0.83-4.51 [facility] Basophil percentageOrdered B y: Jeanine Knight on 02-18-2023 Basophils/100 WBC (Bld) 0.7 % 0-1 [facility] Eosinophils/100 WBC (Bld) 1.3 % 0-5 [facility] Neutrophils (Bld) [#/Vol] 4.0 10*3/uL 2.0-7.7 [facility] Neutrophils/100 WBC (Bld) 66.3 % 47-70 [facility] WBC (Bld) [#/Vol] 6.1 10*3/uL 4.4-11.0 [facility] Blood erythrocytes count (nu mber/volume)Ordered By: Jeanine Knight on 02-18-2023 RBC (Bld) [#/Vol] 3.81 10*6/uL 4.2-5.4 [facility] Blood hemoglobin measurement (mass/volume)Ordered By: Jeanine Knight on 02-18-2023 Hemoglobin (Bld) [Mass/Vol] 11.4 g/dL 12.0-15.0 [facility] Blood lymphocytes/100 leukoc ytesOrdered By: Jeanine Knight on 02-18-2023 Lymphocytes/100 WBC (Bld) 23.8 % 19-41 [facility] Blood monocytes/100 leukocyt esOrdered By: Jeanine Knight on 02-18-2023 Monocytes/100 WBC (Bld) 7.1 % 0-10 [facility] Blood platelet mean volumeOr dered By: Jeanine Kinght on 02-18-2023 Platelet mean volume (Bld) [Entitic vol] 10.5 fL 6.2-12.0 [facility] Determination of erythrocyte mean corpuscular volume (MCV)Ordered By: Jeanine Knight on 02-18-2023 MCV (RBC) [Entitic vol] 88.2 fL 81-99 [facility] Gestational diabetes screen 1-hour screen with 50g oral glucose loadOrdered By: Jeanine Knight on 02-18-2023 Glucose 1 Hr post 50 g glucose PO [Mass/Vol] 106 mg/dL 70-140 [facility] HIV 1 and HIV-2 antibody ass ay with HIV-1 p24 antigen detectionOrdered By: Jeanine Knight on 02-18-2023 HIV 1+2 Ab+HIV1 p24 Ag IA Ql Non-Reactive Nonreactive [facility] Hematocrit Auto (Bld) [Volum e fraction]Ordered By: Jeanine Knight on 02-18-2023 Hematocrit (Bld) [Volume fraction] 33.6 % 37-47 [facility] - Hematology and Cell countsOrdered By: Jeanine Knigth on 02-18-2023 Erythrocyte distribution width (RBC) [Entitic vol] 38.8 fL 35.1-43.9 [facility] Erythrocyte distribution width (RBC) [Ratio] 12.2 % 11.6-14.6 [facility] Immature granulocytes/100 WBC (Bld) 0.800 % 0.0-0.9 [facility] Comment on above: IG% - Immature Granu locytes (promyelocytes, myelocytes and metamyelocytes) > 1% indicates that a LEFT SHIFT is Present. MCH (RBC) [Entitic mass] 29.9 pg 27.0-32.0 [facility] Nucleated RBC/100 WBC (Bld) [Ratio] 0 % 0-5 [facility] MCHC Auto (RBC) [Mass/Vol]Or dered By: Jeanine Knight on 02-18-2023 MCHC (RBC) [Mass/Vol] 33.9 g/dL 32-36 [facility] Platelets bldOrdered By: Gerard Knight on 02-18-2023 Platelets (Bld) [#/Vol] 139 10*3/uL 150-450 [facility] Serum Treponema species anti body detectionOrdered By: Jeanine Knight on 02-18-2023 Treponema sp Ab Ql (S) Non-Reactive [facility] - Chemistry and C hemistry - challengeon 01-21-2023 Glucose Ql (U) Negative [facility] - Urinalysison Protein Ql (U) Negative [facility] - Chemistry and C hemistry - challengeon 12-24-2022 Glucose Ql (U) Negative [facility] - Urinalysison Protein Ql (U) Negative [facility] - Chemistry and C hemistry - challengeon 11-25-2022 Glucose Ql (U) Negative [facility] - Urinalysison Protein Ql (U) Negative [facility] - Chemistry and C hemistry - challengeon 10-29-2022 Glucose Ql (U) Negative [facility] - Urinalysison Protein Ql (U) Negative [facility] Absolute lymphocyte countOrd ered By: Dr. Wynne on 10-01-2022 Lymphocytes Auto (Unsp spec) [#/Vol] 1.60 10*3/uL 0.83-4.51 [facility] Basophil percentageOrdered B y: Dr. Wynne on 10-01-2022 Basophils/100 WBC (Bld) 0.8 % 0-1 [facility] Eosinophils/100 WBC (Bld) 2.1 % 0-5 [facility] Neutrophils (Bld) [#/Vol] 2.7 10*3/uL 2.0-7.7 [facility] Neutrophils/100 WBC (Bld) 57.0 % 47-70 [facility] WBC (Bld) [#/Vol] 4.8 10*3/uL 4.4-11.0 [facility] Blood erythrocytes count (nu mber/volume)Ordered By: Dr. Wynne on 10-01-2022 RBC (Bld) [#/Vol] 4.23 10*6/uL 4.2-5.4 [facility] Blood hemoglobin measurement (mass/volume)Ordered By: Dr. Wynne on 10-01-2022 Hemoglobin (Bld) [Mass/Vol] 12.2 g/dL 12.0-15.0 [facility] Blood lymphocytes/100 leukoc ytesOrdered By: Dr. Wynne on 10-01-2022 Lymphocytes/100 WBC (Bld) 33.4 % 19-41 [facility] Blood monocytes/100 leukocyt esOrdered By: Dr. Wynne on 02-07-2023 Monocytes/100 WBC (Bld) 6.5 % 0-10 [facility] Blood platelet mean volumeOr dered By: Dr. Wynne on 10-01-2022 Platelet mean volume (Bld) [Entitic vol] 10.2 fL 6.2-12.0 [facility] Determination of erythrocyte mean corpuscular volume (MCV)Ordered By: Dr. Wynne on 10-01-2022 MCV (RBC) [Entitic vol] 84.2 fL 81-99 [facility] HIV 1 and HIV-2 antibody ass ay with HIV-1 p24 antigen detectionOrdered By: Dr. Wynne on 10-01-2022 HIV 1+2 Ab+HIV1 p24 Ag IA Ql Non-Reactive Nonreactive [facility] Hematocrit Auto (Bld) [Volum e fraction]Ordered By: Dr. Wynne on 10-01-2022 Hematocrit (Bld) [Volume fraction] 35.6 % 37-47 [facility] - Chemistry and C hemistry - challengeon 10-01-2022 Glucose Ql (U) Negative [facility] - Hematology and Cell countsOrdered By: Dr. Wynne on 10-01-2022 Erythrocyte distribution width (RBC) [Entitic vol] 36.5 fL 35.1-43.9 [facility] Erythrocyte distribution width (RBC) [Ratio] 12.0 % 11.6-14.6 [facility] Immature granulocytes/100 WBC (Bld) 0.200 % 0.0-0.9 [facility] Comment on above: IG% - Immature Granu locytes (promyelocytes, myelocytes and metamyelocytes) > 1% indicates that a LEFT SHIFT is Present. MCH (RBC) [Entitic mass] 28.8 pg 27.0-32.0 [facility] Nucleated RBC/100 WBC (Bld) [Ratio] 0 % 0-5 [facility] - Urinalysison Protein Ql (U) Negative [facility] MCHC Auto (RBC) [Mass/Vol]Or dered By: Dr. Wynne on 10-01-2022 MCHC (RBC) [Mass/Vol] 34.3 g/dL 32-36 [facility] No Panel InformationOrdered By: Dr. Wynne on 10-01-2022 Hepatitis B Surface Antigen Non-Reactive Nonreactive [facility] Hepatitis C Antibody Non-Reactive Nonreactive [facility] Comment on above: Non Reactive: < 0.8 Equivocal: >/= 0.8 to < 1.0 Reactive: >/= 1.0The CDC recommends that a reactive/equivocal HCV antibody result be followed up by the HCV Nucleic Acid Amplificationtest (574059) Rubella IgG Antibody Reactive Nonreactive [facility] Comment on above: Antibody Results Int erpretation of Immune Status Non Reactive Presumed Non-Immune Equivocal Equivocal Reactive Presumed Immune Platelets bldOrdered By: Dr. Wynne on 10-01-2022 Platelets (Bld) [#/Vol] 153 10*3/uL 150-450 [facility] Serum Treponema species anti body detectionOrdered By: Dr. Wynne on 10-01-2022 Treponema sp Ab Ql (S) Non-Reactive [facility] Culture, urineOrdered By: Dr Thom Wynne on 09-18-2022 Bacteria identified Cx Nom (U) Culture exhibits no growth. [facility] Chlamydia trachomatis rRNA d etection by probe and target amplification methodOrdered By: Dr. Wynne on 09-16-2022 C. trachomatis rRNA AUDRA+probe Ql (Unsp spec) Negative Negative [facility] Laboratory - Microbiology an d Antimicrobial susceptibilityOrdered By: Dr. Wynne on 09-16-2022 N. gonorrhoeae DNA AUDRA+probe Ql (Unsp spec) Negative Negative [facility] Comment on above: Performed at: =[address] [id number] Director: Whitley Anthony MD, Phone: [phone] Culture, urineOrdered By: Dr Thom Wynne on 09-15-2022 Bacteria identified Cx Nom (U) Culture exhibits no growth. [facility] Laboratory - Chemistry and C hemistry - challengeon 09-12-2022 Bilirubin Ql (U) Negative [facility] Glucose Ql (U) Negative [facility] Ketones Ql (U) Negative [facility] Urobilinogen (U) [Mass/Vol] Negative [facility] Laboratory - Hematology and Cell countson 09-12-2022 Hemoglobin Ql (U) Negative [facility] Laboratory - Specimen inform ationon 09-12-2022 Clarity (U) Clear [facility] Color (U) YELLOW [facility] Laboratory - Urinalysison Nitrite Ql (U) Negative [facility] Protein Ql (U) Negative [facility] No Panel Informationon 09-12 Urine Leukocytes Positive [facility] Urine pH 6.0. [facility] Culture, urineOrdered By: St kanchan Jefferson on 09-04-2022 Bacteria identified Cx Nom (U) Escherichia coli [facility] Basophil percentageOrdered B y: Elijah Jefferson on 09-02-2022 Basophil percentage 50-100 SEEN /hpf 0-5 [facility] Bilirubin Test strip Ql (U)O rdered By: Elijah Jefferson on 09-02-2022 Bilirubin Ql (U) Negative Negative [facility] Ketones Test strip Ql (U)Ord ered By: Elijah Jefferson on 09-02-2022 Ketones Ql (U) 50 mg/dl Negative [facility] Laboratory - Chemistry and C hemistry - challengeon 09-02-2022 HCG ( test) Ql (U) Positive [facility] Bilirubin Ql (U) Negative [facility] Glucose Ql (U) Negative [facility] Ketones Ql (U) Large (80+) [facility] pH (U) 6.0 [pH] [facility] Specific gravity (U) [Rel density] 1.005 [facility] Urobilinogen (U) [Mass/Vol] Negative [facility] Laboratory - Hematology and Cell countson 09-02-2022 Hemoglobin Ql (U) Hemolyzed [facility] Laboratory - Specimen inform ationon 09-02-2022 Clarity (U) Cloudy [facility] Color (U) YELLOW [facility] Laboratory - Urinalysison Nitrite Ql (U) Negative [facility] Protein Ql (U) Negative [facility] Mucus LM Ql (Urine sed)Order ed By: Elijah Jefferson on 09-02-2022 Mucus Ql (Urine sed) 0 SEEN /hpf [facility] Nitrite Test strip Ql (U)Ord ered By: Elijah Jefferson on 09-02-2022 Nitrite Ql (U) Negative Negative [facility] No Panel Informationon 09-02 Urine Leukocytes Positive [facility] Urine Non-Hemolyzed Blood Small [facility] Protein Test strip Ql (U)Ord ered By: Elijah Jefferson on 09-02-2022 Protein Ql (U) 30 mg/dl Negative [facility] Squamous epithelial cells de tection in urine sediment by light microscopyOrdered By: Elijah Jefferson on 09-02-2022 Epithelial cells.squamous LM Ql (Urine sed) 0 SEEN /hpf 5-10 [facility] Urine blood detectionOrdered By: Elijah Jefferson on 09-02-2022 RBC Ql (U) 10 /ul Negative [facility] RBC Ql (U) 0-5 SEEN /hpf 0-5 [facility] Urine clarityOrdered By: Ari Jefferson on 09-02-2022 Clarity (U) Clear Clear [facility] Urine color determinationOrd ered By: Elijah Jefferson on 09-02-2022 Color (U) Yellow Yellow [facility] Urine glucose detectionOrder ed By: Elijah Jefferson on 09-02-2022 Glucose Ql (U) Normal mg/dl Normal [facility] Urine leukocyte esterase det ection by dipstickOrdered By: Elijah Jefferson on 09-02-2022 Leukocyte esterase Test strip Ql (U) 500 /ul Negative [facility] Urine pHOrdered By: Elijah cox on 09-02-2022 pH (U) 6.5 [pH] 5.0 - 8.0 [facility] Urine sediment bacteria coun t by microscopy (number/high power field)Ordered By: Elijah Jefferson on 09-02-2022 Bacteria LM.HPF (Urine sed) [#/Area] 2 /[HPF] None Seen [facility] Urine specific gravity measu rementOrdered By: Elijah Jefferson on 09-02-2022 Specific gravity (U) [Rel density] 1.005 1.002-1.030 [facility] Urobilinogen Auto test strip Ql (U)Ordered By: Elijah Jefferson on 09-02-2022 Urobilinogen Ql (U) Normal mg/dl Normal [facility] Absolute lymphocyte counton 11-15-2021 Lymphocytes Auto (Unsp spec) [#/Vol] 1.78 10*3/uL 0.83-4.51 [facility] Work Phone: Basophil percentageon 2021 Basophils/100 WBC (Bld) 0.7 % 0-1 [facility] Work Phone: Eosinophils/100 WBC (Bld) 3.3 % 0-5 [facility] Work Phone: Neutrophils (Bld) [#/Vol] 1.9 10*3/uL 2.0-7.7 [facility] Work Phone: Neutrophils/100 WBC (Bld) 45.7 % 47-70 [facility] Work Phone: WBC (Bld) [#/Vol] 4.2 10*3/uL 4.4-11.0 [facility] Work Phone: Blood erythrocytes count (nu mber/volume)on 11-15-2021 RBC (Bld) [#/Vol] 4.26 10*6/uL 4.2-5.4 [facility] Work Phone: Blood hemoglobin measurement (mass/volume)on 11-15-2021 Hemoglobin (Bld) [Mass/Vol] 12.7 g/dL 12.0-15.0 [facility] Work Phone: Blood lymphocytes/100 leukoc yteson 11-15-2021 Lymphocytes/100 WBC (Bld) 42.3 % 19-41 [facility] Work Phone: Blood monocytes/100 leukocyt eson 11-15-2021 Monocytes/100 WBC (Bld) 7.8 % 0-10 [facility] Work Phone: Blood platelet mean volumeon 11-15-2021 Platelet mean volume (Bld) [Entitic vol] 9.6 fL 6.2-12.0 [facility] Work Phone: Determination of erythrocyte mean corpuscular volume (MCV)on 11-15-2021 MCV (RBC) [Entitic vol] 87.8 fL 81-99 [facility] Work Phone: Hematocrit Auto (Bld) [Volum e fraction]on 11-15-2021 Hematocrit (Bld) [Volume fraction] 37.4 % 37-47 [facility] Work Phone: Laboratory - Hematology and Cell countson 11-15-2021 Erythrocyte distribution width (RBC) [Entitic vol] 37.2 fL 35.1-43.9 [facility] Work Phone: Erythrocyte distribution width (RBC) [Ratio] 11.5 % 11.6-14.6 [facility] Work Phone: Immature granulocytes/100 WBC (Bld) 0.200 % 0.0-0.9 [facility] Work Phone: Comment on above: IG% - Immature Granu locytes (promyelocytes, myelocytes and metamyelocytes) > 1% indicates that a LEFT SHIFT is Present. MCH (RBC) [Entitic mass] 29.8 pg 27.0-32.0 [facility] Work Phone: Nucleated RBC/100 WBC (Bld) [Ratio] 0 % 0-5 [facility] Work Phone: MCHC Auto (RBC) [Mass/Vol]on 11-15-2021 MCHC (RBC) [Mass/Vol] 34.0 g/dL 32-36 [facility] Work Phone: Platelets bldon 11-15-2021 Platelets (Bld) [#/Vol] 166 10*3/uL 150-450 [facility] Work Phone: Absolute lymphocyte counton 10-03-2021 Lymphocytes Auto (Unsp spec) [#/Vol] 1.16 10*3/uL 0.83-4.51 [facility] Work Phone: Basophil percentageon 2021 Basophils/100 WBC (Bld) 0.1 % 0-1 [facility] Work Phone: Eosinophils/100 WBC (Bld) 0.1 % 0-5 [facility] Work Phone: Neutrophils (Bld) [#/Vol] 13.9 10*3/uL 2.0-7.7 [facility] Work Phone: Neutrophils/100 WBC (Bld) 85.2 % 47-70 [facility] Work Phone: WBC (Bld) [#/Vol] 16.3 10*3/uL 4.4-11.0 [facility] Work Phone: Blood erythrocytes count (nu mber/volume)on 10-03-2021 RBC (Bld) [#/Vol] 3.19 10*6/uL 4.2-5.4 [facility] Work Phone: Blood hemoglobin measurement (mass/volume)on 10-03-2021 Hemoglobin (Bld) [Mass/Vol] 9.7 g/dL 12.0-15.0 [facility] Work Phone: Blood lymphocytes/100 leukoc yteson 10-03-2021 Lymphocytes/100 WBC (Bld) 7.1 % 19-41 [facility] Work Phone: Blood monocytes/100 leukocyt eson 10-03-2021 Monocytes/100 WBC (Bld) 6.9 % 0-10 [facility] Work Phone: Blood platelet mean volumeon 10-03-2021 Platelet mean volume (Bld) [Entitic vol] 11.7 fL 6.2-12.0 [facility] Work Phone: [phone] Determination of erythrocyte mean corpuscular volume (MCV)on 10-03-2021 MCV (RBC) [Entitic vol] 86.2 fL 81-99 [facility] Work Phone: Hematocrit Auto (Bld) [Volum e fraction]on 10-03-2021 Hematocrit (Bld) [Volume fraction] 27.5 % 37-47 [facility] Work Phone: Laboratory - Hematology and Cell countson 10-03-2021 Erythrocyte distribution width (RBC) [Entitic vol] 38.6 fL 35.1-43.9 [facility] Work Phone: Erythrocyte distribution width (RBC) [Ratio] 12.2 % 11.6-14.6 [facility] Work Phone: Immature granulocytes/100 WBC (Bld) 0.600 % 0.0-0.9 [facility] Work Phone: Comment on above: IG% - Immature Granu locytes (promyelocytes, myelocytes and metamyelocytes) > 1% indicates that a LEFT SHIFT is Present. MCH (RBC) [Entitic mass] 30.4 pg 27.0-32.0 [facility] Work Phone: Nucleated RBC/100 WBC (Bld) [Ratio] 0 % 0-5 [facility] Work Phone: MCHC Auto (RBC) [Mass/Vol]on 10-03-2021 MCHC (RBC) [Mass/Vol] 35.3 g/dL 32-36 [facility] Work Phone: Platelets bldon 10-03-2021 Platelets (Bld) [#/Vol] 124 10*3/uL 150-450 [facility] Work Phone: No Panel Informationon 10-01 SARS-CoV-2 Antigen (Rapid) [facility] Work Phone: Vaginal Amniotic Fluid Detection Positive Negative [facility] Work Phone: Comment on above: Amniotic fluid prese nt indicates rupture of Membranes. RESULTS CALLED TO MACHO COON 10/01/[id number] Ever Khalil.REPORT READ BACK BY SAME . Laboratory - Chemistry and C hemistry - challengeon 09-25-2021 Glucose Ql (U) Negative [facility] Work Phone: Laboratory - Urinalysison Protein Ql (U) Negative [facility] Work Phone: Laboratory - Chemistry and C hemistry - challengeon 09-18-2021 Glucose Ql (U) Negative [facility] Work Phone: Laboratory - Urinalysison Protein Ql (U) Negative [facility] Work Phone: Laboratory - Chemistry and C hemistry - challengeon 09-12-2021 Glucose Ql (U) Negative [facility] Work Phone: [phone] Laboratory - Urinalysison Protein Ql (U) Negative [facility] Work Phone: [phone] No Panel Informationon 09-04 Group B Streptococcus Culture Group B Beta Streptococcus is not isolated. [facility] Work Phone: [phone] Laboratory - Chemistry and C hemistry - challengeon 08-21-2021 Glucose Ql (U) Negative [facility] Work Phone: [phone] Laboratory - Urinalysison Protein Ql (U) Negative [facility] Work Phone: [phone] Absolute lymphocyte counton 08-07-2021 Lymphocytes Auto (Unsp spec) [#/Vol] 1.34 10*3/uL 0.83-4.51 [facility] Work Phone: Basophil percentageon 2020 Eosinophils/100 WBC (Bld) 1.4 % 0-5 [facility] Work Phone: Neutrophils (Bld) [#/Vol] 5.7 10*3/uL 2.0-7.7 [facility] Work Phone: WBC (Bld) [#/Vol] 8.0 10*3/uL 4.4-11.0 [facility] Work Phone: Blood erythrocytes count (nu mber/volume)on 08-07-2021 RBC (Bld) [#/Vol] 3.99 10*6/uL 4.2-5.4 [facility] Work Phone: Blood hemoglobin measurement (mass/volume)on 08-07-2021 Hemoglobin (Bld) [Mass/Vol] 11.3 g/dL 12.0-15.0 [facility] Work Phone: Blood lymphocytes/100 leukoc yteson 08-07-2021 Lymphocytes/100 WBC (Bld) 16.9 % 19-41 [facility] Work Phone: Blood monocytes/100 leukocyt eson 08-07-2021 Monocytes/100 WBC (Bld) 7.9 % 0-10 [facility] Work Phone: Blood platelet mean volumeon 08-07-2021 Platelet mean volume (Bld) [Entitic vol] 10.6 fL 6.2-12.0 [facility] Work Phone: [phone] Determination of erythrocyte mean corpuscular volume (MCV)on 08-07-2021 MCV (RBC) [Entitic vol] 88.2 fL 81-99 [facility] Work Phone: Hematocrit Auto (Bld) [Volum e fraction]on 08-07-2021 Hematocrit (Bld) [Volume fraction] 35.2 % 37-47 [facility] Work Phone: [phone] Laboratory - Chemistry and C hemistry - challengeon 08-07-2021 Glucose Ql (U) Negative [facility] Work Phone: Laboratory - Hematology and Cell countson 08-07-2021 Basophils/100 WBC (Unsp spec) 0.4 % 0-1 [facility] Work Phone: Erythrocyte distribution width (RBC) [Entitic vol] 39.9 fL 35.1-43.9 [facility] Work Phone: Erythrocyte distribution width (RBC) [Ratio] 12.5 % 11.6-14.6 [facility] Work Phone: Immature granulocytes/100 WBC (Bld) 1.800 % 0.0-0.9 [facility] Work Phone: Comment on above: IG% - Immature Granu locytes (promyelocytes, myelocytes and metamyelocytes) > 1% indicates that a LEFT SHIFT is Present. MCH (RBC) [Entitic mass] 28.3 pg 27.0-32.0 [facility] Work Phone: Neutrophils/100 WBC (Bld) 71.6 % 47-70 [facility] Work Phone: Nucleated RBC/100 WBC (Bld) [Ratio] 0 % 0-5 [facility] Work Phone: Laboratory - Urinalysison Protein Ql (U) Negative [facility] Work Phone: MCHC Auto (RBC) [Mass/Vol]on 08-07-2021 MCHC (RBC) [Mass/Vol] 32.1 g/dL 32-36 [facility] Work Phone: Platelets bldon 08-07-2021 Platelets (Bld) [#/Vol] 142 10*3/uL 150-450 [facility] Work Phone: Laboratory - Chemistry and C hemistry - challengeon 07-25-2021 Glucose Ql (U) Negative [facility] Work Phone: Laboratory - Urinalysison Protein Ql (U) Negative [facility] Work Phone: Vital Signs Date Time Vital Sign Value Performing Clinician Facility 05-19-2025 12:53-0400 Body height 160.[address] Ada Garcia MD Work Phone: [facility] 05-19-2025 12:53-0400 Body mass index (BMI) [Ratio] 28.2 kg/m2 Dr. Ada Gacria MD Work Phone: [facility] 05-19-2025 12:53-0400 Body weight 72.[address] Ada Garcia MD Work Phone: [facility] 05-19-2025 12:53-0400 Diastolic blood pressure 67 mm[Hg] Dr. Ada Garcia MD Work Phone: [facility] 05-19-2025 12:53-0400 Systolic blood pressure 114 mm[Hg] Dr. Ada Garcia MD Work Phone: [facility] 04-20-2025 10:09-0400 Body height 160.[address] Ada Garcia MD Work Phone: [facility] 04-20-2025 10:04-0400 Body mass index (BMI) [Ratio] 26.9 kg/m2 Dr. Ada Garcia MD Work Phone: [phone] [place] [address] 04-20-2025 10:04-0400 Body weight 69.[address] Ada Garcia MD Work Phone: [phone] [place] [address] 04-20-2025 10:04-0400 Diastolic blood pressure 77 mm[Hg] Dr. Ada Garcia MD Work Phone: [phone] [place] [address] 04-20-2025 10:04-0400 Systolic blood pressure 120 mm[Hg] Dr. Ada Garcia MD Work Phone: [phone] [place] [address] 03-23-2025 10:38-0400 Body height 160.[address] Ada Garcia MD Work Phone: [phone] [place] [address] 03-23-2025 10:36-0400 Body mass index (BMI) [Ratio] 26.1 kg/m2 Dr. Aad Garcia MD Work Phone: [phone] [place] [address] 03-23-2025 10:36-0400 Body weight 66.[address] Ada Garcia MD Work Phone: [phone] [place] [address] 03-23-2025 10:36-0400 Diastolic blood pressure 70 mm[Hg] Dr. Ada Garcia MD Work Phone: [phone] [place] [address] 03-23-2025 10:36-0400 Systolic blood pressure 123 mm[Hg] Dr. Ada Garcia MD Work Phone: [phone] [place] [address] 02-24-2025 15:20-0400 Body height 160.[address] Ada Garcia MD Work Phone: [phone] [place] [address] 02-24-2025 15:20-0400 Body mass index (BMI) [Ratio] 25.4 kg/m2 Dr. Aad Garcia MD Work Phone: [phone] [place] [address] 02-24-2025 15:20-0400 Body weight 65.[address] Ada Garcia MD Work Phone: [phone] [place] [address] 02-24-2025 15:20-0400 Diastolic blood pressure 75 mm[Hg] Dr. Ada Garcia MD Work Phone: [facility] 02-24-2025 15:20-0400 Systolic blood pressure 119 mm[Hg] Dr. Ada Garcia MD Work Phone: [facility] 01-27-2025 10:32-0400 Body height 160.[address] Ada Garcia MD Work Phone: [facility] 01-27-2025 10:32-0400 Body mass index (BMI) [Ratio] 25.2 kg/m2 Dr. Ada Garcia MD Work Phone: [facility] 01-27-2025 10:32-0400 Body weight 64.[address] Ada Garcia MD Work Phone: [facility] 01-27-2025 10:32-0400 Diastolic blood pressure 75 mm[Hg] Dr. Ada Garcia MD Work Phone: [facility] 01-27-2025 10:32-0400 Systolic blood pressure 115 mm[Hg] Dr. Ada Garcia MD Work Phone: [facility] 09-14-2024 19:35-0500 Body temperature 99.19 [degF] Leia Mcdonough APRN.[employer] Work Phone: [facility] 09-14-2024 19:35-0500 Body weight 64.3 kg Leia Mcdonough APRN.[employer] Work Phone: [facility] 09-14-2024 19:35-0500 Diastolic blood pressure 72 mm[Hg] Leia Mcdonough APRN.[employer] Work Phone: [facility] 09-14-2024 19:35-0500 Heart rate 112 /min Leia Mcdonough APRN.[employer] Work Phone: [facility] 09-14-2024 19:35-0500 Respiratory rate 16 /min Leia Mcdonough APRN.[employer] Work Phone: [facility] 09-14-2024 19:35-0500 SaO2% (BldA) [Mass fraction] 98 % Leia Mcdonough APRN.[employer] Work Phone: [facility] 09-14-2024 19:35-0500 Systolic blood pressure 110 mm[Hg] Leia Mcdonough APRN.[employer] Work Phone: [facility] 04-29-2023 08:45-0400 Body temperature 97.6 [degF] MD Ada Garcia [facility] 04-29-2023 08:45-0400 Diastolic blood pressure 75 mm[Hg] MD Ada Garcia [facility] 04-29-2023 08:45-0400 Heart rate 52 /min MD Ada Garcia [facility] 04-29-2023 08:45-0400 Respiratory rate 16 /min MD Ada Garcia [facility] 04-29-2023 08:45-0400 SaO2% (BldA) [Mass fraction] 99 % MD Ada Garcia [facility] 04-29-2023 08:45-0400 Systolic blood pressure 115 mm[Hg] MD Ada Garcia [facility] 04-28-2023 02:29-0400 Body height 160.02 cm MD Ada Garcia [facility] 04-28-2023 02:29-0400 Body mass index (BMI) [Ratio] 31.2 kg/m2 MD Ada Garcia [facility] 04-28-2023 02:29-0400 Body weight 80.01 kg MD Ada Garcia [facility] 04-22-2023 09:59-0400 Body mass index (BMI) [Ratio] 31.4 kg/m2 MD Ada Garcia [facility] 04-22-2023 09:59-0400 Body weight 80.34 kg MD Ada Garcia [facility] 04-22-2023 09:59-0400 Diastolic blood pressure 74 mm[Hg] MD Ada Garcia [facility] 04-22-2023 09:59-0400 Systolic blood pressure 108 mm[Hg] MD Ada Garcia [facility] 04-15-2023 11:01-0400 Body height 160.02 cm MD Ada THAPA [facility] 04-15-2023 10:58-0400 Body mass index (BMI) [Ratio] 31 kg/m2 MD Ada Garcia [facility] 04-15-2023 10:58-0400 Body weight 79.54 kg MD Ada THAPA [facility] 04-15-2023 10:58-0400 Diastolic blood pressure 71 mm[Hg] MD Ada Garcia [facility] 04-15-2023 10:58-0400 Systolic blood pressure 111 mm[Hg] MD Ada Garcia [facility] 04-10-2023 19:25-0400 Body temperature 98.4 [degF] MD Ada Garcia [facility] 04-10-2023 19:24-0400 Diastolic blood pressure 82 mm[Hg] MD Ada Garcia [facility] 04-10-2023 19:24-0400 Heart rate 106 /min MD Ada Garcia [facility] 04-10-2023 19:24-0400 Systolic blood pressure 129 mm[Hg] MD Ada Garcia [facility] 04-10-2023 17:41-0400 Body height 160.02 cm MD Ada Garcia [facility] 04-10-2023 17:41-0400 Body mass index (BMI) [Ratio] 30.4 kg/m2 MD Ada Garcia [facility] 04-10-2023 17:41-0400 Body weight 78 kg MD Ada Garcia [facility] 04-01-2023 09:22-0400 Body mass index (BMI) [Ratio] 30.3 kg/m2 MD Ada Garcia [facility] 04-01-2023 09:22-0400 Body weight 77.67 kg MD Ada Garcia [facility] 04-01-2023 09:22-0400 Diastolic blood pressure 71 mm[Hg] MD Ada Garcia [facility] 04-01-2023 09:22-0400 Systolic blood pressure 117 mm[Hg] MD Ada Garcia [facility] 03-18-2023 11:03-0400 Body height 160.02 cm MD Ada Garcia [facility] 03-18-2023 11:03-0400 Body mass index (BMI) [Ratio] 29.9 kg/m2 MD Ada Garcia [facility] 03-18-2023 11:03-0400 Body weight 76.65 kg MD Ada Garcia [facility] 03-18-2023 11:03-0400 Diastolic blood pressure 74 mm[Hg] MD Ada Garcia [facility] 03-18-2023 11:03-0400 Systolic blood pressure 118 mm[Hg] MD Ada Garcia [facility] 03-04-2023 10:00-0400 Body mass index (BMI) [Ratio] 29.2 kg/m2 MD Ada Garcia [facility] 03-04-2023 10:00-0400 Body weight 75.01 kg MD Ada Garcia [facility] 03-04-2023 10:00-0400 Diastolic blood pressure 68 mm[Hg] MD Ada Garcia [facility] 03-04-2023 10:00-0400 Systolic blood pressure 106 mm[Hg] MD Ada Garcia [facility] 02-18-2023 14:11-0400 Body height 160.02 cm MD Ada Garcia [facility] 02-18-2023 14:11-0400 Body mass index (BMI) [Ratio] 29.2 kg/m2 MD Ada Garcia [facility] 02-18-2023 14:11-0400 Body weight 74.84 kg MD Ada Garcia [facility] 02-18-2023 14:11-0400 Diastolic blood pressure 72 mm[Hg] MD Ada Garcia [facility] 02-18-2023 14:11-0400 Systolic blood pressure 130 mm[Hg] MD Ada Garcia [facility] 01-21-2023 10:00-0400 Body height 160.02 cm MD Ada Garcia [facility] 01-21-2023 10:00-0400 Body mass index (BMI) [Ratio] 28.5 kg/m2 MD Ada Garcia [facility] 01-21-2023 10:00-0400 Body weight 73.08 kg MD Ada Garcia [facility] 01-21-2023 10:00-0400 Diastolic blood pressure 65 mm[Hg] MD Ada Garcia [facility] 01-21-2023 10:00-0400 Systolic blood pressure 102 mm[Hg] MD Ada Garcia [facility] 12-24-2022 09:09-0400 Body mass index (BMI) [Ratio] 27.8 kg/m2 MD Ada Garcia [facility] 12-24-2022 09:09-0400 Body weight 71.21 kg MD Ada Garcia [facility] 12-24-2022 09:09-0400 Diastolic blood pressure 72 mm[Hg] MD Ada Garcia [facility] 12-24-2022 09:09-0400 Systolic blood pressure 115 mm[Hg] MD Ada Garcia [facility] 11-25-2022 09:49-0400 Body mass index (BMI) [Ratio] 26.4 kg/m2 MD Ada Garcia [facility] 11-25-2022 09:49-0400 Body weight 67.58 kg MD Ada Garcia [facility] 11-25-2022 09:49-0400 Diastolic blood pressure 70 mm[Hg] MD Ada Garcia [facility] 11-25-2022 09:49-0400 Systolic blood pressure 132 mm[Hg] MD Ada Garcia [facility] 10-29-2022 08:32-0500 Body mass index (BMI) [Ratio] 26.2 kg/m2 MD Ada Garcia [facility] 10-29-2022 08:32-0500 Body weight 67.18 kg MD Ada Garcia [facility] 10-29-2022 08:32-0500 Diastolic blood pressure 72 mm[Hg] MD Ada Garcia [facility] 10-29-2022 08:32-0500 Systolic blood pressure 132 mm[Hg] MD Ada Garcia [facility] 10-01-2022 08:36-0500 Body height 160.02 cm [facility] 10-01-2022 08:36-0500 Body mass index (BMI) [Ratio] 25.8 kg/m2 [facility] 10-01-2022 08:36-0500 Body weight 66.22 kg [facility] 10-01-2022 08:36-0500 Diastolic blood pressure 75 mm[Hg] [facility] 10-01-2022 08:36-0500 Systolic blood pressure 122 mm[Hg] [facility] 09-16-2022 09:19-0500 Body height 160.02 cm [facility] 09-16-2022 09:18-0500 Body mass index (BMI) [Ratio] 25.3 kg/m2 [facility] 09-16-2022 09:18-0500 Body weight 64.86 kg [facility] 09-16-2022 09:18-0500 Diastolic blood pressure 73 mm[Hg] [facility] 09-16-2022 09:18-0500 Systolic blood pressure 123 mm[Hg] [facility] 09-12-2022 14:17-0500 Body height 160.02 cm [facility] 09-12-2022 14:17-0500 Body mass index (BMI) [Ratio] 26 kg/m2 [facility] 09-12-2022 14:17-0500 Body weight 66.67 kg [facility] 09-12-2022 14:17-0500 Diastolic blood pressure 72 mm[Hg] [facility] 09-12-2022 14:17-0500 Systolic blood pressure 107 mm[Hg] [facility] 09-02-2022 16:46-0500 Body mass index (BMI) [Ratio] 25.8 kg/m2 [facility] 09-02-2022 16:46-0500 Body temperature 97.8 [degF] [facility] 16:46-0500 [facility] 09-02-[facility]22 16:46-0500 Diastolic blood pressure 66 mm[Hg] [facility] 09-02-2022 16:46-0500 Heart rate 132 /min [facility] 09-02-2022 16:46-0500 Respiratory rate 14 /min [facility] 09-02-2022 16:46-0500 SaO2% (BldA) [Mass fraction] 99 % [facility] 09-02-2022 16:46-0500 Systolic blood pressure 118 mm[Hg] [facility] 11-15-2021 10:03-0400 Body height 162.56 cm [facility] Work Phone: 11-15-2021 10:03-0400 Body mass index (BMI) [Ratio] 27.8 kg/m2 [facility] Work Phone: 11-15-2021 10:03-0400 Body weight 73.48 kg [facility] Work Phone: 11-15-2021 10:03-0400 Diastolic blood pressure 70 mm[Hg] [facility] Work Phone: 11-15-2021 10:03-0400 Systolic blood pressure 106 mm[Hg] [facility] Work Phone: 10-04-2021 08:45-0500 Body temperature 98.3 [degF] [facility] Work [facility]: 10-04-2021 08:45-0500 Diastolic blood pressure 70 mm[Hg] [facility] Work Phone: 10-04-2021 08:45-0500 Heart rate 101 /min MD Ada Garcia [facility] Work Phone: 10-04-2021 08:45-0500 Respiratory rate 18 /min MD Ada Garcia [facility] Work Phone: 10-04-2021 08:45-0500 Systolic blood pressure 116 mm[Hg] MD Ada Garcia [facility] Work Phone: 10-04-2021 01:26-0500 SaO2% (BldA) [Mass fraction] 99 % MD Ada Garcia [facility] Work Phone: 10-01-2021 20:20-0500 Body mass index (BMI) [Ratio] 33.3 kg/m2 [facility] 10-01-2021 20:20-0500 Body weight 85.27 kg MD Ada Garcia [facility] Work Phone: 09-25-2021 07:59-0500 Body mass index (BMI) [Ratio] 33.5 kg/m2 [facility] Work Phone: 09-25-2021 07:59-0500 Body weight 85.72 kg [facility] Work Phone: 09-25-2021 07:59-0500 Diastolic blood pressure 82 mm[Hg] MD Ada Garcia [facility] Work Phone: 09-25-2021 07:59-0500 Systolic blood pressure 130 mm[Hg] MD Ada Garcia [facility] Work Phone: 09-18-2021 08:21-0500 Body mass index (BMI) [Ratio] 32.5 kg/m2 MD [facility] Work [facility]: 09-18-2021 08:21-0500 Body weight 83.46 kg MD Ada Garcia [facility] Work Phone: 09-18-2021 08:21-0500 Diastolic blood pressure 80 mm[Hg] [facility] Work Phone: 09-18-2021 08:21-0500 Systolic blood pressure 124 mm[Hg] [facility] Work Phone: 09-12-2021 10:51-0500 Body mass index (BMI) [Ratio] 32.6 kg/m2 MD [facility] Work Phone: 09-12-2021 10:51-0500 Body weight 83.63 kg [facility] Work Phone: 09-12-2021 10:51-0500 Diastolic blood pressure 70 mm[Hg] [facility] Work Phone: 09-12-2021 10:51-0500 Systolic blood pressure 100 mm[Hg] [facility] Work Phone: 09-04-2021 08:19-0500 Body mass index (BMI) [Ratio] 32.4 kg/m2 [facility] Work Phone: 09-04-2021 08:19-0500 Body weight 83 [facility] Work Phone: 09-04-2021 08:19-0500 Diastolic blood pressure 70 mm[Hg] MD [facility] Work Phone: 09-04-2021 08:19-0500 Systolic blood pressure 122 mm[Hg] [facility] Work Phone: 08-21-2021 12:48-0500 Body mass index (BMI) [Ratio] 32.2 kg/m2 MD [facility] Work Phone: 08-21-2021 12:48-0500 Body weight 82.55 kg [facility] Work Phone: 08-21-2021 12:48-0500 Diastolic blood pressure 80 mm[Hg] MD Caballero Marcyantonio [facility] Work Phone: 08-21-2021 12:48-0500 Systolic blood pressure 136 mm[Hg] MD Caballero Marcyclaushahzad [facility] Work Phone: 08-07-2021 08:44-0500 Body mass index (BMI) [Ratio] 30.9 kg/m2 MD Caballero Marcyantonio [facility] Work Phone: 08-07-2021 08:44-0500 Body weight 79.37 kg MD Caballero Marcyantonio [facility] Work Phone: 08-07-2021 08:44-0500 Diastolic blood pressure 60 mm[Hg] MD Ada Garcia [facility] Work Phone: 08-07-2021 08:44-0500 Systolic blood pressure 122 mm[Hg] MD [facility] Work Phone: 07-25-2021 07:49-0500 Body mass index (BMI) [Ratio] 30.6 kg/m2 [facility] Work Phone: 07-25-2021 07:49-0500 Body weight 78.47 kg MD Caballero Marcyantonio [facility] Work Phone: 07-25-2021 07:49-0500 Diastolic blood pressure 86 mm[Hg] MD [facility] Work Phone: 07-25-2021 07:49-0500 Systolic blood pressure 136 mm[Hg] MD Caballero Radha [facility] Work Phone: Encounters Encounter Date Encounter Type Care Provider Facility Start: 05-19-2025 End: 05-19-2025 Patient encounter procedure Aspen SCANLON -[facility] Work Phone: Start: 05-19-2025 End: 05-19-2025 ambulatory Ada Garcia Facility:[facility] Start: 04-20-2025 End: 04-20-2025 Patient encounter procedure Aspen SCANLON -[facility] Work Phone: Start: 04-20-2025 End: 04-20-[address] 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 Ada Garcia MD Work Phone: -[facility] Start: 04-14-2025 End: 04-14-2025 Patient encounter procedure Jeanine Knight CNM -[facility] Work Phone: Start: 04-14-2025 End: 04-14-2025 ambulatory Jeanine Knight Facility:[facility] Start: 03-23-2025 End: 03-23-[address] Serenity Luna DO -[facility] Work Phone: Start: 03-23-2025 End: 03-23-[address] Ada Garcia MD Work Phone: -[facility] Start: 02-24-2025 End: 02-24-[address] Ana Wynne MD -[facility] Work Phone: Start: 02-24-2025 End: 02-24-[address] Ada Garcia MD Work Phone: -[facility] Start: 01-27-2025 End: 01-27-2025 Patient encounter procedure Jeanine Knight CNM -[facility] Work Phone: Start: 01-27-2025 End: 01-27-[address] Ada Garcia MD Work Phone: [facility] Work Phone: Start: 01-27-2025 End: 01-27-2025 ambulatory Jeanine Knight Facility:[facility] Start: 01-14-2025 Non-patient / Non-visit Kiah Farias RN -[facility] Work Phone: Start: 01-14-2025 ambulatory Ada Garcia Facility: [facility] Start: 09-14-2024 End: 09-14-2024 ambulatory ADA GARCIA Facility:[facility] Start: 09-14-2024 End: 09-14-2024 Patient encounter procedure Leia Mcdonough APRN.CNP Work Phone: [facility] Comment on above: Sore throat (Primary Dx); Rash Start: 09-03-2024 End: 09-03-2024 ambulatory Ada Garcia Facility:[facility] Start: 09-03-2024 End: 09-03-2024 ambulatory Ada Garcia Facility:[facility] Start: 06-08-2024 End: 06-08-2024 ambulatory Ada Garcia Facility:[facility] Start: 06-08-2024 End: 06-08-2024 ambulatory Ada Garcia Facility:[facility] Start: 04-29-2023 Non-patient / Non-visit MD Ada THAPA [facility] Start: 04-28-2023 Non-patient / Non-visit MD Ada THAPA [facility] Start: 04-28-2023 End: 04-29-2023 Evaluation and management of inpatient MD Ada Garcia [facility] Work Phone: Start: 04-22-2023 End: 04-22-2023 Patient encounter procedure MD Ada THAPA [facility] Work Phone: Start: 04-15-2023 End: 04-15-2023 ambulatory MD Ada Garcia [facility] Work Phone: Start: 04-15-2023 End: 04-15-2023 Patient encounter procedure MD Ada THAPA [facility] Work Phone: Start: 04-10-2023 Non-patient / Non-visit MD Ada THAPA [facility] Start: 04-10-2023 End: 04-10-2023 ambulatory MD Ada THAPA [facility] Work Phone: Start: 04-10-2023 End: 04-10-2023 Patient encounter procedure MD Ada THAPA [facility] Work Phone: Start: 04-01-2023 End: 04-01-2023 Patient encounter procedure MD Ada THAPA [facility] Work Phone: Start: 03-18-2023 End: 03-18-2023 ambulatory MD Ada THAPA [facility] Work Phone: Start: 03-18-2023 End: 03-18-2023 ambulatory MD Ada THAPA [facility] Work Phone: Start: 03-18-2023 End: 03-18-2023 Patient encounter procedure MD Ada THAPA [facility] Work Phone: Start: 03-04-2023 End: 03-04-2023 Patient encounter procedure MD Ada THAPA [facility] Work Phone: Start: 02-18-2023 End: 02-18-2023 Patient encounter procedure MD Ada THAPA [facility] Work Phone: Start: 02-18-2023 End: 02-18-2023 ambulatory MD Ada Garcia [facility] Work Phone: Start: 02-18-2023 End: 02-18-2023 Patient encounter procedure MD Ada Jolliff [facility], [facility] Work Phone: Start: 01-21-2023 End: 01-21-2023 ambulatory MD Ada Garcia [facility] Work Phone: Start: 01-21-2023 End: 01-21-2023 Patient encounter procedure MD Ada THAPA [facility], [facility] Start: 01-21-2023 End: 01-21-2023 Patient encounter procedure MD Ada Garcia [facility] Start: 12-24-2022 End: 12-24-2022 Patient encounter procedure MD Ada Garcia [facility] Start: 12-12-2022 End: 12-12-2022 ambulatory [facility] Start: 11-25-2022 End: 11-25-2022 Patient encounter procedure MD Ada Garcia [facility] Start: 10-29-2022 End: 10-29-2022 Patient encounter procedure MD Ada Garcia [facility] Start: 10-01-2022 End: 10-01-2022 [facility]ulatory [facility] Start: 10-01-2022 End: 10-01-2022 Patient encounter procedure MD Ada Garcia [facility] Start: 09-16-2022 End: 09-16-2022 ambulatory [facility] Work [facility]: Start: 09-16-2022 End: 09-16-2022 Patient encounter procedure [facility] Start: 09-16-2022 End: 09-16-2022 [facility] Start: 09-12-2022 End: 09-12-2022 ambulatory [facility] Work [facility]: Start: 09-12-2022 End: 09-12-2022 Patient encounter procedure MD Ada Hinojosashahzad [facility], Specimen Start: 09-12-2022 End: 09-12-2022 Patient encounter procedure MD Ada Garcia [facility] Start: 09-02-2022 End: 09-02-20[address] [facility] Work Phone: Start: 09-02-2022 End: 09-02-2022 [facility] Start: 09-02-2022 End: 09-02-2022 Patient encounter procedure MD Caballero [facility] Start: 02-24-2022 ambulatory Rosanna Ramirez APRN.CNP Work Phone: Telemedicine Comment on above: UTI symptoms (Primar y Dx) Start: 11-15-2021 End: 11-15-2021 Patient encounter procedure MD Caballero [facility] Start: 10-04-2021 Non-patient / Non-visit MD Caballero [facility] Start: 10-03-2021 Non-patient / Non-visit MD Caballero [facility] Start: 10-02-2021 Non-patient / Non-visit MD Caballero [facility] Start: 10-01-2021 End: 10-04-2021 Evaluation and management of inpatient [facility] Start: 09-25-2021 End: 09-25-2021 [facility] Start: 09-18-2021 End: 09-18-2021 Patient encounter procedure MD Caballero [facility] Start: 09-12-2021 End: 09-12-2021 [facility] Start: 09-04-2021 End: 09-04-2021 Patient encounter procedure MD Caballero [facility] Start: 09-04-2021 End: 09-04-2021 Patient encounter procedure MD Ada Garcia [facility] Start: 08-21-2021 End: 08-21-2021 Patient encounter procedure MD Ada Garcia [facility] Start: 08-10-2021 Patient encounter procedure MD Ada Garcia [facility] Start: 08-07-2021 End: 08-07-2021 Patient encounter procedure MD Ada Garcia [facility] Start: 07-25-2021 End: 07-25-2021 Patient encounter procedure MD Ada Garcia [facility] Procedures Date Procedure Procedure Detail Performing Clinician Start: 04-14-2025 Ultrasonography in f irst trimester Dr. Ada Garcia MD Work Phone: Start: 01-27-[address] Ada riley MD Work Phone: Start: 01-27-2025 Hepatitis C antibody measurement Dr. Ada Garcia MD Work Phone: Comment on above: Reactive: Presumptiv e evidence of antibodies to HCV. Follow CDC recommendations for supplemental testing.Non-Reactive: Antibodies to HCV were not detected; does not exclude the possibility of exposure to HCVReactive Results are presumptive evidence of antibodies to HCV. Follow CDC recommendations for supplemental testing.Order confirmation testing: HCV Quant by PCR testing - HCVPCR #[id number] Non Reactive: < 0.8 Equivocal: >/= 0.8 to < 1.0 Reactive: >/= 1.0The CDC requires that a reactive/equivocal HCV antibody result be sent out for confirmation. HCV Quant by PCR testing. Start: 01-27-[address] Duy Garcia MD Work Phone: Comment on above: Testing performed by Inductively coupled plasma/MassSpectrometry.Analysis by inductively coupled plasma/massspectrometry (ICP/MS) Environmental Exposure: WHO Recommendation <5.0 Occupational Exposure: OSHA Lead Std 40.0 AARON 30.0 Detection Limit = 1.0Performed at: [address] [id number] Director: Brian Olivares PhD, Phone: [phone] Start: 01-27-[address] Ada Garcia MD Work Phone: Comment on above: Antibody Result: Int erpretationNon-Reactive: Non- ImmuneReactive: ImmuneThe following results were obtained with the [employer] Rubella IgG assay. Results from assays of other manufacturers cannot be used interchangeably. Start: 01-27-2025 Serologic test for syphilis Dr. Ada Garcia MD Work Phone: Start: 09-14-2024 STREP A MOLECULAR (POC) Leia Mcdonough APRN.ELECTRICAL SIGN WIRER Work Phone: Start: 04-15-2023 Group B Streptococcu s Culture MD Ada THAPA Start: 04-15-2023 Ultrasound scan for growth MD Ada THAPA Start: 03-18-2023 Ultrasound scan for growth MD Ada THAPA Start: 02-18-2023 Ultrasound scan for growth MD Ada THAPA Start: 01-21-2023 Ultrasound scan for growth MD Ada THAPA Start: 10-01-2021 SARS-CoV-2 Antigen (Rapid) MD Ada Garcia Start: 09-04-2021 Group B Streptococcu s Culture MD Ada Garcia Start: 09-04-2021 Ultrasound scan for growth MD Ada Garcia Start: 08-10-2021 Ultrasound scan for growth MD Ada Garcia Urine culture MD Ada Garcia Urine culture MD Ada Garcia Urine culture MD Ada Garcia Plan of Treatment Date Care Activity Detail Author Start: 02-18-2033 Urine microalbumin profile DTa P,Tdap,Td Vaccine (4 - Td or Tdap) [facility] Start: 05-19-2025 Measurement of gluco se 2 hours after glucose challenge for glucose tolerance test [facility] Start: 05-19-2025 Serologic test for syphilis [facility] Start: 05-19-2025 [facility] Start: 01-27-2025 CBC W Auto Different ial panel - Blood [facility] Start: 01-27-2025 Hepatitis C antibody measurement [facility] Start: 01-27-2025 Lead measurement, quantitative, blood [facility] Start: 01-27-2025 Rubella IgG measurement [facility] Start: 01-27-2025 Serologic test for syphilis [facility] Start: 01-27-2025 [facility] Start: 01-27-2025 Chlamydia deoxyribon ucleic acid detection [facility] Start: 09-14-2024 End: 12-14-2024 Borrelia burgdorferi IgG and IgM panel - Serum LYME AB EARLY <=30 DAY SYMPTOMS Lab Routine Rash Expected: 09/14/2024, Expires: 12/14/2024 [facility] Work Phone: Comment on above: Expected: 09/14/2024 , Expires: 12/14/2024 Start: 04-25-2024 Covid-19 Vaccine ( season) Covid-19 Vaccine () [facility] Start: 04-25-2024 Influenza vaccination Influenza Vacc ine (#1) [facility] Start: 04-29-2023 Patient discharge [facility] Start: 04-28-2023 Administration of bl ood product [facility] Start: 04-28-2023 Administration of medication [facility] Start: 04-28-2023 Application of ice c ollar, cap or bag [facility] Start: 04-28-2023 Catheterization of vein [facility] Start: 04-28-2023 Introduction of urin quin catheter [facility] Start: 04-28-2023 Measuring intake and output [facility] Start: 04-28-2023 Notification of physician [facility] Start: 04-28-2023 Procedure discontinued [facility] Start: 04-28-2023 Provision of activit y privileges [facility] Start: 04-28-2023 Vital signs measurements [facility] Start: 04-28-2023 [facility] Start: 04-28-2023 Admission procedure [facility] Start: 04-10-2023 Nonstress test [facility] Start: 04-10-2023 Obstetric monitoring [facility] Start: 04-10-2023 Vital signs measurements [facility] Start: 04-10-2023 [facility] Start: 04-10-2023 Patient discharge [facility] Start: 09-12-2022 [facility] Start: 04-25-2022 Influenza vaccination INFLUENZA (#1) [facility] Start: 2017 PAP TESTING PAP TESTING [facility] Start: 2017 Screening for malign ant neoplasm of cervix Cervical Cancer Screening [facility] Start: 2015 Hepatitis B Vaccine (1 of 3 - 19+ 3-dose series) Hepatitis B Vaccine (1 of 3 - 19+ 3-dose series) [facility] Start: 2015 Urine microalbumin profile DTAP,TDAP ,TD (1 - Tdap) [facility] Start: 2014 Anxiety Screening Anxiety Screening [facility] Start: 2014 Depression Screening Depression Scre ening [facility] Start: 2014 HEPATITIS C SCREENING HEPATITIS C [facility] Start: 2014 Hepatitis C screening Hepatitis C [facility] Start: 2014 HIV SCREENING HIV SCREENING [facility] Start: 2014 HIV screening HIV Screening [facility] Start: 2010 PEDS TO ADULT TRANSI TION ANNUAL ASSESSMENT PEDS TO ADULT TRANSITION ANNUAL ASSESSMENT [facility] Start: 2008 Adult depression scr eening assessment DEPRESSION SCREENING [facility] Start: 2008 PEDS TO ADULT TRANSI TION INITIAL DISCUSSION PEDS TO ADULT TRANSITION INITIAL DISCUSSION [facility] Start: 2007 HPV VACCINE (1 - 2-d ose series) HPV VACCINE (1 - 2-dose series) [facility] Start: 2006 MENINGOCOCCAL B: Con ware server based on risk (1 of 2 - Risk Bexsero 2-dose series) MENINGOCOCCAL B: Consider based on risk (1 of 2 - Risk Bexsero 2-dose series) [facility] Start: 1996 COVID-19 VACCINE (#1) COVID-19 VACCI NE (#1) [facility] ABO and Rh group [Ty pe] in Blood [facility] Bacteria identified in Urine by Culture [facility] Bacteria identified in Urine by Culture Urine Culture [facility] CBC W Auto Different ial panel - Blood [facility] CBC W Auto Different ial panel - Blood [facility] CBC W Auto Different ial panel - Blood [facility] Chlamydia deoxyribon ucleic acid detection [facility] Erythrocyte mean corpuscular volume determination [facility] Glucose [Mass/volume ] in Serum or Plasma --1 hour post 50 g glucose PO [facility] Hematocrit [Volume Fraction] of Blood [facility] Hemoglobin [Mass/vol ume] in Blood [facility] Hepatitis B surface antigen measurement [facility] Hepatitis B virus urbina rface Ag [Presence] in Serum [facility] Hepatitis C antibody measurement [facility] HIV 1+2 Ab+HIV1 p24 Ag [Presence] in Serum or Plasma by Immunoassay [facility] HIV 1+2 Ab+HIV1 p24 Ag [Presence] in Serum or Plasma by Immunoassay [facility] Leukocytes [#/volume ] in Blood [facility] Mean corpuscular hemoglobin concentration determination [facility] Mean corpuscular hemoglobin determination [facility] [facility] Neisseria gonorrhoea e rRNA [Presence] in Unspecified specimen by AUDRA with probe detection [facility] Neutrophil count [facility] Neutrophil percent differential count [facility] Patient Education Kick Counts ED False Labor OB Triage: Return to Hospital or Notify Physician if you Experience: [facility] Work Phone: Patient referral [facility] Work Phone: PCR test for Chlamyd ia trachomatis [facility] Platelets [#/volume] in Blood [facility] Red blood cell count [facility] Red cell distributio n width determination [facility] Rubella IgG measurement [facility] Treponema sp Ab [Pre sence] in Serum [facility] Treponema sp Ab [Pre sence] in Serum [facility] Treponema sp Ab [Pre sence] in Serum [facility] Ultrasound [place] [facility] [place] Immunization Date Immunization Notes Care Provider Fa cilirochelle 02-18-2023 tetanus toxoid, redu vira diphtheria toxoid, and acellular pertussis vaccine, adsorbed MD Ada Garcia [facility] 10-03-2021 measles, mumps and rubella virus vaccine MD Ada Garcia [facility] 10-03-2021 measles/mumps/rubell a virus vaccine JORGE LUIS OCHOA HALL TENDER-ELECTRICAL SIGN WIRER [facility] 07-11-2021 tetanus toxoid, redu vira diphtheria toxoid, and acellular pertussis vaccine, adsorbed MD Caballero [facility] 07-11-2021 diphtheria, tetanus toxoids and acellular pertussis vaccine, unspecified formulation [facility] Work Phone: Payers Date Payer Category Payer Unknown [id number] 2024 Unknown DAMIEN SAHU HMO ZULEIMA [id number] 2024-Present [phone] [address] [place] [address] HMO [id number] 2024 Unknown [id number] 2024 Private Health Insurance [id number] 2023 Self-pay [id number] 2023 Unknown [id number] 2016 Unknown DAMIEN ADAMS SS PPO [id number] 2016-Present [phone] [address] [place] [address] PPO [id number] 1996 Unknown [id number] [id number]. 479 1996 Unknown [id number] 2.16.840.1.695809.3.579.2. 627 Unknown SELF PAY INSURANCE [id number] Unknown [id number] Unknown [id number] Unknown [id number] [facility] PACKAGE PLAN . [id number] Unknown [id number] 2.16.840.1.913377.3.579.2. 462 Unknown [id number] 2.16.840.1.363117.3.579.2. 462 Unknown [id number] 2.16.840.1.119860.3.579.2. 462 Unknown [id number] 2.16.840.1.724998.3.579.2. 462 Unknown [id number] 2.16.840.1.212130.3.579.2. 462 Unknown [id number] 2.16.840.1.471087.3.579.2. 462 Unknown [id number] 2.16.840.1.311935.3.579.2. 462 Unknown [id number] 2.16.840.1.503276.3.579.2. 462 Unknown [id number] 2.16.840.1.679958.3.579.2. 462 Unknown [id number] 2.16.840.1.618731.3.579.2. 462 Unknown [id number] 2.16.840.1.576288.3.579.2. 462 Unknown [id number] 2.16.840.1.073685.3.579.2. 462 Social History Date Type Detail Facility Start: 11-15-2021 End: 04-28-2023 Tobacco smoking status NVIS Unknown if ever smoked [facility] Start: 1995 Sex Assigned At Female [facility] Start: 12-16-2017 End: 01-14-2025 Tobacco smoking status NHIS Never smoked tobacco [facility] Start: 12-16-2017 End: 09-14-2024 Tobacco use and exposure Smokeless tobacco non-user [facility] Start: 1995 Sex Assigned At Not on file [facility] Start: 08-02-2020 End: 09-14-2024 History of Social function [facility] Start: 08-02-2020 End: 09-14-2024 Tobacco use panel [facility] National Score (1-10 0), lower number is lower risk Not on file [facility] Sexual Orientation [employer] [facility] Sara Contreras Sex Female (finding) Sara Cope pital Goals Date Patient Goal Desired Activity /State Clinical Notes 02-24-2022 to 05-19-2025 Note Date & Type Note Facility 05-19-2025 Progress note [facility] 04-14-2025 Radiology Diagnostic study note [facility] Imaging Services [address] [place] [address] OB Anatomy w/ Transvaginal MR#: [id number] Acct: [id number] Name: HEATHER ANGEL Rep #: [id number] : 1995 F 30 From: Delfin Bliss MD PCP: Dr. Ada Garcia MD Status: REG CLI Study:OB Anatomy w/ Transvaginal Date of Exam : 04/14/25 Exam# [id number] Ordering Dr: Jeanine Knight CNM PROCEDURE: OB ANATOMY W/ TRANSVAGINAL 04/14/2025 REASON FOR EXAM: ANATOMY@18-20WKS TECHNIQUE: OB ANATOMY W/ TRANSVAGINAL COMPARISON: None FINDINGS LMP: November 25, 2024. Number: 1 Position: Transverse right Placental Position: Fundal. Placental Abnormalities: No evidence of previa. DIMENSIONS: Biparietal Diameter: 4.59 cm: 19 weeks and 6 days: 45%/ Head Circumference: 17.46 cm: 20 weeks and 0 days: 41 percentile/ Abdominal Circumference: 14.93 cm: 20 weeks and 1 day: 50 percentile/ Femur Length: 3.18 cm: 19 weeks and 6 days: 38 percentile/ ESTIMATED WEIGHT: 329 g plus/-49 g ESTIMATED WEIGHT PERCENTILE (24+ weeks): 48 ESTIMATED GESTATIONAL AGE: Baseline: 20 weeks and 0 days By Ultrasound: 19 weeks and 6 days ESTIMATED DATE OF DELIVERY: Baseline: September 01, 2025 By Ultrasound: September 02, 2025 BIOPHYSICAL ASSESSMENT: Amniotic Fluid Volume: 3.9 cm Amniotic Fluid Index: Within normal limits. (8-24 cm normal range) Cardiac Motion: 147 beats per minute (average) Trunk and Limb Motion: Present. MATERNAL ANATOMY: Adnexa: Neither maternal ovary is successfully identified. Cervical Length (if measured): 3.6 cm ANATOMY: Spine: Unremarkable Cranium: Unremarkable Cerebellum: Unremarkable Cisterna Magna: Unremarkable Cavum Septum Pellucidi: Unremarkable Lateral Ventricles: Unremarkable Choroid Plexus: Unremarkable Midline Falx: Marker Nuchal Fold: Unremarkable Upper Lip: Unremarkable Heart: Unremarkable Ventricular Outflow Tracts: Unremarkable Stomach: Unremarkable Kidneys: Unremarkable Bladder: Unremarkable Umbilical Cord: Normal insertion. Extremities: Unremarkable US/OB Anatomy w/ Transvaginal IMPRESSION: Single live intrauterine gestation with a mean gestational age of 19 weeks and 6days. Reading Location: [id number] CC: MAX Knight; Dr. Ada Garcia MD ~ Backrest Assembler: Signed [facility] 03-23-2025 Progress note [facility] 02-24-2025 Progress note [facility] 02-24-2025 Progress note Note Date/Time February 24, 2025 3:34pm [facility] [address] [place] [address], [address] [place] [address] OFFICE VISIT Date of Service: 02/24/25 MR#: [id number] Acct: [id number] Name: HEATHER ANGEL Rep #: [id number] : 1995 Provider: Dr. Elpidio Wynne MD Age/Sex: 29/F Location: [facility] Status: Signed Intake Vital Signs 09/03/24 06:10 01/27/25 10:32 02/24/25 15:20 Height 5 ft 3 in 5 ft 3 in 5 ft 3 in Weight: 144 lb BMI 25.4 BP 119/75 Intake Visit Reasons: 13wk OB Training Generalist Required: No Is patient in pain?: No Allergies No Known Allergies Allergy (Verified 02/24/25 15:23) Medications ?Medication ?Instructions ?Recorded ?Confirmed ?Type PNV no.151-iron 27 mg-folic 800 cap PO 09/10/22 History mcg-omega3 260 me-sux-ozp-fish capsule omega-3 fatty acids 600 mg PO DAILY 04/10/2311/16 History Last Menstrual Period: 11/24/24 Zika: Zika virus screening: Negative : No PFSH PFSH Medical History Galactosemia Biotinidase deficiency Abnormal biopsy result Family History Grandfather Cancer unknown type Grandmother Hypertension Ovarian cancer Paternal Grandfather Hypertension Grandmother Asthma Father Hypertension Social History adopted: No household members: spouse and children number of children: 2 current occupation: [employer] current occupational exposures/hazards: No pets and animals: Yes pets and animals: dog(s) and farm animals history of recent travel: No sexually active: Yes Smoking Status: Never smoker second hand exposure: No alcohol intake: never substance use type: does not use well-balanced diet: daily or most days caffeine: No eating out: rarely or never during the past year weight has: decreased > 10 lbs what type of physical activity do you participate in: walking frequency: 1-2 times per week duration: 15-30 minutes/day gabriela/restoration: Advent seatbelt use: always do you feel safe at home: Yes 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 Date Name GA/Weeks Outcome Route Bth Weight Infant Gen Labor Lgth Anesthesia Del Locatn Provider FOB Unknown 11/2020 spontaneous Unknown 12/2020 spontaneous 10/02/21 Renae 40 live - full term 9lbs 11oz Male [address] [facility] SM Bam 04/28/23 Iveth Alba 38 live - full term [id number] Female epidural [facility] Rayna Knight Bam Delivery Date: 10/02/21 Last Updated by: Chacha Farmer SROM 40w SM Renae Delivery Date: 04/28/23 Last Updated by: Sharda James IOL HPI 13wk OB Details: HEATHER ANGEL is a 29 year old who presents for routine OB visit. OB Visit RONEY Calculator Estimated Delivery Date Method Current WG Current Estimate 09/01/25 Ultrasound #1 13w 0d Other Estimates 08/31/25 LMP (Certain) 13w 1d Expected Delivery Route/Plan Labor Preferences- CB/BF classes: [] labor support person: [] labor intervention preferences: [] pain management options preferred: [] cut cord/dad catch: [] : [] PP control planned: [] discussed possible routes of delivery and associated risks: [] special requests: [] Specific Issue/Plans Covid status: [] Flu vaccine: [] Tdap vaccine: [] Rhogam: [] LARC form signed: [] Problem list reviewed and updated with the most current plan of care details and appropriate orders placed. Relevant counseling for the gestational age provided. Continue routine care and follow up unless otherwise noted in visit notes/problem list details Initial Weight: 142 lb Date -?-?-?-?-?-?-?-?-?-?-?-?- EGA Weight BP Urine Prot -?-?-?-?-?-?-?-?-?-?-?-?- Glucose FHR FuHt Pres Dilation -?-?-?-?-?-?-?-?-?-?-?-?- Effaced St Visit Note 01/27/25 -?-?-?-?-?-?-?-?-?-?-?-?- 9w 0d 142 lb 6 oz (+6 oz) 115/75 -?-?-?-?-?-?-?-?-?-?-?-?- 169 -?-?-?-?-?-?-?-?-?-?-?-?- KW- CRL cons wit h dates. denies nipt. lead exposure and requesting lead testing-added to NOB labs 02/24/25 -?-?-?-?-?-?-?-?-?-?-?-?- 13w 0d 144 lb (+2 lb) 119/75 Negative -?-?-?-?-?-?-?-?-?-?--?-?- Negative 150 -?-?-?-?-?-?-?-?-?-?-?-?- SM- no vb crampi ng ACOG First Trimester First Trimester: Desire for , Alcohol, Tobacco Cessation, Illicit/Recreational Drug/Substance Use, Intimate Partner Violence, Barriers to care, Unstable Housing, Communication Barriers, Environmental/Work Hazards, Anticipated Course of Care, Toxoplasmosis Precations, Use of Any medications, Sexual activity, Exercise, Dental Care, Sauna/Hot tub use, Seat Belt use, Childbirth classes/Hospital facilities, Travel, Indications for Ultrasound and Screening for Aneuploidy; Discussed Second Trimester Second Trimester: Signs and Symptoms of Labor, Selecting a care provider, Reproductive Life Planning & Contreception, Care Planning, Depression/Anxiety and Intimate Partner Violence; Discussed Tobacco Cessation Third Trimester Third Trimester: Pain Management Plans, Labor support person(s), Immediate Larc, Movement Monitoring, Signs and Symptoms of Preeclampsia, [place] Education and Intimate Partner Violence; Discussed Depression Results POC Urinalysis 2 Dip (Clinic) Office Urine Glucose Negative Last Edit by Aspen Henry on 02/24/25 15:30 Office Urine Protein Negative Last Edit by Aspen Henry on 02/24/25 15:30 Coding Level of Care Code OB Routine Diagnoses Lead exposure Z77.011 History of thrombocytopenia Z86.2 Rh negative status during O26.899; Z67.91 History of miscarriage, currently O09.299 Supervision of high-risk O09.90 13 weeks gestation of Z3A.13 Weeks of gestation: 13 weeks 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 Assessment and Plan Assessment and Plan (1) Lead exposure: Status: Acute (2) History of thrombocytopenia: Status: Acute Comment: First (3) Rh negative status during : Status: Acute Comment: Rhogam @ 28wks & PRN; to call with any bleeding/spotting (4) History of miscarriage, currently : Status: Acute Comment: 2 Miscarriages in 2020 (5) Supervision of high-risk : Status: Acute Comment: PRR, ; RONEY 08/31/24; PC: Renae & Iveth; : Bam (6) : Status: Acute Qualifiers: Weeks of gestation: 13 weeks Qualified Code(s): Z3A.13 - 13 weeks gestation of Comment: Discussed genetic/carrier testing - undecided; prior carrier testing done (7) 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; 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 (8) 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; 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 Orders: Orders POC Urinalysis 2 Dip (Clinic) Today 02/24/25 1534 <Electronically signed by Ana douglas MD> Date _ Ana Wynne MD Cosigner Signature: Date (if applicable) CC: ~ [facility] Work Phone: 1(871) 576-426006-05-2025 Evaluation note* Diagnosis Onset Date Resolution Status Admit Date Biotinidase deficiency acute 2024 10:17am Galactosemia acute January 27 10:17am History of miscarriage, curr ently acute January 27, 2025 1 0:17am History of thrombocytopenia acute January 27, 2025 10:17am Lead exposure acute January 27 025 10:17am acute January 27, 2025 10:17am Rh negative status during acute January 27, 2025 1 0:17am Supervision of high-risk a cute January 27, 2025 10:17am [facility] Work Phone: 1(860) 104-180006-05-2025 Evaluation note* Diagnosis Onset Date Resolution Status Admit Date Biotinidase deficiency acute 2024 10:17am Galactosemia acute January 27 10:17am History of miscarriage, curr ently acute January 27, 2025 1 0:17am History of thrombocytopenia acute January 27, 2025 10:17am Lead exposure acute January 27 10:17am acute January 27, 2025 10:17am Rh negative status during acute January 27, 2025 1 0:17am Supervision of high-risk a cute January 27, 2025 10:17am Biotinidase deficiency acute Ju 2024 3:17pm Galactosemia acute February 24 3:17pm History of miscarriage, curr ently acute February 24, 2025 3 :17pm History of thrombocytopenia acute February 24, 2025 3:17pm Lead exposure acute February 24 3:17pm acute February 24, 2025 3:17pm Rh negative status during acute February 24, 2025 3 :17pm Supervision of high-risk a cute February 24, 2025 3:17pm [facility] Work Phone: 1(676) 876-359806-05-2025 Evaluation note* Diagnosis Onset Date Resolution Status Admit Date Biotinidase deficiency acute Ju ne 2024 10:17am Galactosemia acute January 27 10:17am History of miscarriage, curr ently acute January 27, 2025 1 0:17am History of thrombocytopenia acute January 27, 2025 10:17am Lead exposure acute January 27, 10:17am acute January 27, 2025 10:17am Rh negative status during acute January 27, 2025 1 0:17am Supervision of high-risk a cute January 27, 2025 10:17am Biotinidase deficiency acute Ju ly 2024 3:17pm Galactosemia acute February 24 3:17pm History of miscarriage, curr ently acute February 24, 2025 3 :17pm History of thrombocytopenia acute February 24, 2025 3:17pm Lead exposure acute February 24 3:17pm acute February 24, 2025 3:17pm Rh negative status during acute February 24, 2025 3 :17pm Supervision of high-risk a cute February 24, 2025 3:17pm Biotinidase deficiency acute Ju ly 2024 10:27am Galactosemia acute March 23, 2 025 10:27am History of miscarriage, curr ently acute March 23, 2025 10:27am History of thrombocytopenia acute March 23, 2025 10:27am Lead exposure acute March 23, 2025 10:27am acute March 23 10:27am Rh negative status during acute March 23, 2025 10:27am Supervision of high-risk a cute March 23, 2025 10:27am [facility] Work Phone: [phone]) 520-342706-05-2025 Evaluation note* Diagnosis Onset Date Resolution Status Admit Date Biotinidase deficiency acute Ju 2024 10:17am Galactosemia acute January 27 10:17am History of miscarriage, curr ently acute January 27, 2025 1 0:17am History of thrombocytopenia acute January 27, 2025 10:17am Lead exposure acute January 27, 10:17am acute January 27, 2025 10:17am Rh negative status during acute January 27, 2025 1 0:17am Supervision of high-risk acute January 27, 2025 1 0:17am Biotinidase deficiency acute 2024 3:17pm Galactosemia acute February 24 3:17pm History of miscarriage, curr ently acute February 24, 2025 3 :17pm History of thrombocytopenia acute February 24, 2025 3:17pm Lead exposure acute February 24, 2 025 3:17pm acute February 24, 2025 3:17pm Rh negative status during acute February 24, 2025 3 :17pm Supervision of high-risk acute February 24, 2025 3 :17pm Biotinidase deficiency acute Ju 2024 10:27am Galactosemia acute March 23, 2 025 10:27am History of miscarriage, curr ently acute March 23, 2025 10:27am History of thrombocytopenia acute March 23, 2025 10:27am Lead exposure acute March 23, 2025 10:27am acute March 23 10:27am Rh negative status during acute March 23, 2025 10:27am Supervision of high-risk acute March 23, 2025 10:27am Biotinidase deficiency acute Au seven 2024 9:59am Galactosemia acute April 20, 2025 9:59am History of miscarriage, curr ently acute April 20 9:59am History of thrombocytopenia acute April 20, 2025 9:59am Lead exposure acute March 9:59am acute April 20, 025 9:59am Rh negative status during acute April 20 9:59am Supervision of high-risk acute April 20 9:59am [facility] Work Phone: 1(386) 898-157806-05-2025 Evaluation note* Diagnosis Onset Date Resolution Status Admit Date Biotinidase deficiency acute Ju 2024 10:17am Galactosemia acute January 27 10:17am History of miscarriage, currently acute January 27 10:17am History of thrombocytopenia acute January 27, 2025 10:17am Lead exposure acute January 27, 10:17am acute January 27, 2025 10:17am Rh negative status during acute January 27, 2025 1 0:17am Supervision of high-risk acute January 27, 2025 1 0:17am Biotinidase deficiency acute 2024 3:17pm Galactosemia acute February 24 3:17pm History of miscarriage, currently acute February 24 3:17pm History of thrombocytopenia acute February 24, 2025 3:17pm Lead exposure acute February 24, 3:17pm acute February 24, 2025 3:17pm Rh negative status during acute February 24, 2025 3 :17pm Supervision of high-risk acute February 24, 2025 3 :17pm Biotinidase deficiency acute Ju 2024 10:27am Galactosemia acute March 23, 2 025 10:27am History of miscarriage, currently acute March 23 10:27am History of thrombocytopenia acute March 23, 2025 10:27am Lead exposure acute March 23, 2025 10:27am acute March 23 10:27am Rh negative status during acute March 23, 2025 10:27am Supervision of high-risk acute March 23, 2025 10:27am Biotinidase deficiency acute Au seven 2024 9:59am Galactosemia acute April 20, 2025 9:59am History of miscarriage, currently acute April 20, 2025 9:59am History of thrombocytopenia acute April 20, 2025 9:59am Lead exposure acute March 9:59am acute April 20, 025 9:59am Rh negative status during acute April 20 9:59am Supervision of high-risk acute April 20 9:59am Biotinidase deficiency acute Se 2024 12:50pm Galactosemia acute May 192024 12:50pm History of miscarriage, currently acute April 12:50pm History of thrombocytopenia acute May 19, 2025 12:50pm Lead exposure acute April 262024 12:50pm acute April 12:50pm Rh negative status during acute May 19, 2025 12:50pm Supervision of high-risk acute May 19, 2025 12:50pm [facility] Work Phone: 1(319) 888-640506-05-2025 [facility] [address] [place] [address], [address] [place] [address] OFFICE VISIT Date of Service: 01/27/25 MR#: [id number] Acct: [id number] Name: HEATHER ANGEL Rep #: [id number] : 1995 Provider: MAX Knight Age/Sex: 29/F Location: [facility] [place] Status: Signed Intake Vital Signs 09/03/24 06:10 01/27/25 10:32 Height 5 ft 3 in 5 ft 3 in Weight: 142 lb 6 oz BMI 25.2 BP 115/75 Intake Visit Reasons: NOB LMP 4/2 Chief Complaint: New OB Training Generalist Required: No Is patient in pain?: No Allergies No Known Allergies Allergy (Verified 01/27/25 10:30) Medications ?Medication ?Instructions ?Recorded ?Confirmed ?Type PNV no.151-iron 27 mg-folic 800 cap PO 09/10/22 History mcg-omega3 260 jn-jvz-hax-fish capsule omega-3 fatty acids 600 mg PO DAILY 04/10/2301/16 History Last Menstrual Period: 11/24/24 PFSH PFS Medical History Galactosemia Biotinidase deficiency Abnormal biopsy result Family History Grandfather Cancer unknown type Grandmother Hypertension Ovarian cancer Paternal Grandfather Hypertension Grandmother Asthma Father Hypertension Social History adopted: No household members: spouse and children number of children: 2 current occupation: [employer] current occupational exposures/hazards: No pets and animals: Yes pets and animals: dog(s) and farm animals history of recent travel: No sexually active: Yes Smoking Status: Never smoker second hand exposure: No alcohol intake: never substance use type: does not use well-balanced diet: daily or most days caffeine: No eating out: rarely or never during the past year weight has: decreased > 10 lbs what type of physical activity do you participate in: walking frequency: 1-2 times per week duration: 15-30 minutes/day gabriela/restoration: Advent seatbelt use: always do you feel safe at home: Yes 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 Date Name GA/Weeks Outcome Route Bth Weight Gen Labor Lgth Anesthesia Del Locatn Provider FOB Unknown 11/2020 spontaneous Unknown 12/2020 spontaneous 10/02/21 Renae 40 live - full term 9lbs 11oz Male [address] [facility] SM Bam 04/28/23 Iveth Anjali 38 live - full term [id number] Female epidural [facility] Rayna Knight Bam Delivery Date: 10/02/21 Last Updated by: Chacha Farmer SROM 40w SM Renae Delivery Date: 04/28/23 Last Updated by: Sharda James IOL HPI NOB LMP 11/24 Details: HEATHER ANGEL is a 29 year old who presents for New OB visit. OB Visit RONEY Calculator Estimated Delivery Date Method Current WG Current Estimate 09/01/25 Ultrasound #1 9w 0d Other Estimates 08/31/25 LMP (Certain) 9w 1d Estimated Due Date: 08/31/26 Expected Delivery Route/Plan Labor Preferences- CB/BF classes: [] labor support person: [] labor intervention preferences: [] pain management options preferred: [] cut cord/dad catch: [] : [] PP control planned: [] discussed possible routes of delivery and associated risks: [] special requests: [] Specific Issue/Plans Covid status: [] Flu vaccine: [] Tdap vaccine: [] Rhogam: [] LARC form signed: [] Problem list reviewed and updated with the most current plan of care details andappropriate orders placed. Relevant counseling for the gestational age provided. Continue routine care and follow up unless otherwise noted in visit notes/problem list details Initial Weight: 142 lb Date -?-?-?-?-?-?-?-?-?-?--?-?- EGA Weight BP Urine Prot -?-?-?-?-?-?-?-?-?-?-?-?- Glucose FHR FuHt Pres Dilation -?-?-?-?-?-?-?-?-?-?-?-?- Effaced St Visit Note 01/27/25 -?-?-?-?-?-?-?-?-?-?-?-?- 9w 0d 142 lb 6 oz (+6 oz) 115/75 -?-?-?-?-?-?-?-?-?-?-?-?- 169 -?-?-?-?-?-?-?-?-?-?-?-?- KW- CRL cons wit h dates. denies nipt. lead exposure and requesting lead testing-added to NOB labs Menstrual History Last Menstrual Period: 11/24/24 Reported LMP: definite Normal amount/duration: Yes Frequency in days: 30 On hormonal BC at conception: No hCG+: 12/21/24 Antepartum Record Genetic Screening: Congenital Heart Defect: Other, Neural Tube Defect: Other, Hemoglobinopathy Or Carrier: Other, Cystic Fibrosis: Other, Chromosome Abnormality: Other, Bear-Sachs: Other, Hemophilia: Other, Intellectual Disability/Autism: Other, Recurrent Loss/Stillbirth: Patient (Pt w/2 miscarriages ), Other Structural Defect: Other, Other Genetic Disease: Other and Maternal Metabolic Disorder: Other Infection History: Live with someone with TB or Exposed to TB: No, Patient or Partner has history of Genital Herpes: No, Rash or Viral illness since last mentrual period: No, Prior GBS-Infected child: No, History of STD: No, HIV Infection: No, History of Hepatitis: No, Recent travel outside of [place]: No, Concern for hepatitis exposure: No, Varicella immune: Yes (Had chicken pox) and Covid Vaccinated: No Medical History Medical History: Positive: D (Rh) Sensitized (O-) and Breast and Negative: Diabetes, Hypertension, Heart disease, Auto-immune disorder, Kidney disease/UTI,Neurologic/epilepsy, Psychiatric, Depression/ depression, Hepatitis/liver disease, Varicosities/phlebitis, Thyroid dysfunction, Trauma/ domestic violence, History of blood transfusions, Pulmonary (e.g.,TB,Asthma), Seasonal allergies, Drug/latex allergies/reactions, [place] surgery, Operations/hospitalizations, Anesthetic complications, History of abnormal pap, Uterine anomaly/herb, Infertility, Anti-retroviral treatment, Relevant family history and Other ACOG First Trimester First Trimester: Desire for , Alcohol, Tobacco Cessation, Illicit/Recreational Drug/Substance Use, Intimate Partner Violence, Barriers to care, Unstable Housing, Communication Barriers, Environmental/Work Hazards, Anticipated Course of Care, Toxoplasmosis Precations, Use of Any med ications, Sexual activity, Exercise, Dental Care, Sauna/Hot tub use, Seat Belt use, Childbirth classes/Hospital facilities, Travel, Indications for Ultrasound and Screening for Aneuploidy Second Trimester Second Trimester: Signs and Symptoms of Labor, Selecting a care provider, Reproductive Life Planning & Contreception, Care Planning, Depression/Anxiety and Intimate Partner Violence; Discussed Tobacco Cessation Third Trimester Third Trimester: Pain Management Plans, Labor support person(s), Immediate Larc, Movement Monitoring, Signs and Symptoms of Preeclampsia, Education and Intimate Partner Violence; Discussed Depression ROS Const Reports system reviewed and no additional complaints, except as documented, Denies fatigue, Denies headache(s) and Denies lethargy ENT Denies headache(s) Card Reports system reviewed and no additional complaints, except as documented Resp Reports system reviewed and no additional complaints, except as documented GI Reports system reviewed and no additional complaints, except as documented, Denies abdominal pain, Denies constipation, Denies cramping, Denies diarrhea andDenies dyspepsia Reports system reviewed and no additional complaints, except as documented, Denies abnormal vaginalbleeding, Denies difficulty voiding, Denies dyspareunia and Denies dysuria Musc Reports system reviewed and no additional complaints, except as documented Skin/Breast Reports system reviewed and no additional complaints, except as documented Neuro Yes system reviewed and no additional complaints, except as documented and No headache(s) Psych Reports system reviewed and no additional complaints, except as documented, Denies anhedonia and Denies anxiety Endo Reports system reviewed and no additional complaints, except as documented and Denies fatigue Exam Const General: cooperative, healthy appearing and comfortable Neck Neck: normal visual inspection and full ROM Chest Chest palpation & inspection: normal inspection of the chest Breast inspection: normal inspection of the breasts and normal inspection of theaxillae Breast palpation: normal palpation of the breasts and normal palpation of the axillae Resp Effort & Inspection: normal respiratory effort and able to speak in complete sentences GI Inspection: normal to inspection Palpation: soft External Female Exam: normal external appearance and normal appearance of the urethra Urethra: normal appearance of the urethra Skin General: no rashes or lesions noted Neuro General: patient alert, patient awake and patient oriented x3 Extrem General: normal to inspection and full ROM Psych Appearance: grossly normal and well kempt Mental Status: mental status grossly normal Mood: congruent mood Affect: normal affect Speech and Movement: speech and movement normal Thought Process: normal Thought Content: normal Coding Level of Care Code OB Routine Diagnoses History of thrombocytopenia Z86.2 Rh negative status during O26.899; Z67.91 History of miscarriage, currently O09.299 Supervision of high-risk O09.90 9 weeks gestation of Z3A.09 Weeks of gestation: 9 weeks 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 Lead exposure Z77.011 Assessment and Plan Assessment and Plan (1) History of thrombocytopenia: Status: Acute Comment: First (2) Rh negative status during : Status: Acute Comment: Rhogam @ 28wks & PRN; to call with any bleeding/spotting (3) History of miscarriage, currently : Status: Acute Comment: 2 Miscarriages in 2020 (4) Supervision of high-risk : Status: Acute Comment: ; RONEY 08/31/24; PC: Renae & Iveth; : Bam (5) : Status: Acute Qualifiers: Weeks of gestation: 9 weeks Qualified Code(s): Z3A.09 - 9 weeks gestation of Comment: Discussed genetic/carrier testing - undecided; prior carrier testing done (6) 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 ACOG book offered to patient. Discussed routine and specially indicated labs if needed- patient consents to testing. See problem list details for plan information. Optional screening including maternal carrier screenings, neural tube defect screening, genetic screening options including quad screen, nuchal translucency, sequential screening, and NIPT screening offered to patient and patient chose: [ ] 01/27/25 1101 s CNMadi> Date _ Jeanine Knight CNM Cosigner Signature: Date (if applicable) CC: ~ [facility] [id number] NoteHNO ID: [id number] Author: LEIA MCDONOUGH APRN.[facility] Service: ? Author Type: Nurse Practitioner Type: Progress Notes Filed: 09/14/2024 19:54 Note Text: Subjective Male with complaints of itching rash all over her entire body. It is in different sections. Patient says she did use some new gain beads. Patient did eat fish that she does not normally eat. Patient denies any difficulty breathing or swallowing. Patient denies any other symptoms at this time. The history is provided by the patient. No russian language professor was used. Rash Review of Systems Constitutional: Negative. Skin: Positive for itching and rash. Objective Physical Exam Constitutional: Appearance: Normal appearance. Pulmonary: Effort: Pulmonary effort is normal. Skin: Comments: Erythematous red bumps located in the areas marked above. Do not appear to be infectious. Blanchable. Neurological: Mental Status: She is alert. No past medical history on file. No past surgical history on file. ALLERGIES Patient has no known allergies. MEDICATIONS Docosahexanoic Acid 200 mg cap Take by mouth. predniSONE (DELTASONE) 10 mg tablet Take 4 tabs daily for 3 days, then 2 tabs daily for 3 days, then 1 tab daily for 3 days with food. famotidine (PEPCID) 20 mg tablet Take 1 tablet by mouth two times a day for 7 days. sucralfate (CARAFATE) 1 gram tablet Take 1 tablet by mouth before meals and at bedtime. (Patient not taking: Reported on 01/22/2021 ) albuterol HFA (PROAIR HFA) 90 mcg/actuation inhaler Inhale 2 Puffs as instructed every 4 hours as needed. (Patient not taking: Reported on 05/14/2019 ) albuterol HFA (PROVENTIL HFA, VENTOLIN HFA) 90 mcg/actuation inhaler Inhale 2 Puffs as instructed every 4 hours as needed. (Patient not taking: Reported on 05/14/2019 ) No family history on file. Social History Tobacco Use Smoking status: Never Smokeless tobacco: Never ASSESSMENT/PLAN: 1. Sore throat - ICD9: 462, ICD10: J02.9 (primary diagnosis) - STREP A MOLECULAR (POC) - neg 2. Rash - ICD9: 782.1, ICD10: R21 - PREDNISONE 10 MG TABLET - FAMOTIDINE 20 MG TABLET - LYME AB EARLY <=30 DAY SYMPTOMS [place] So did add a Lyme just to rule that out. Patient educated about proper use of medication and supportive therapies. Patient will follow-up with signs and symptoms seem to be getting worse not better. Patient agreeable to care plan. Leia Mcdonough APRN.[facility]01-21-2025 History of Present illness Narrative* Leia Mcdonough APRN.[employer] - 09/14/2024 7:39 PM EST Images from the original note were not included. Subjective Male with complaints of itching rash all over her entire body. It is in different sections. Patientsays she did use some new gain beads. Patient did eat fish that she does not normally eat. Patient denies any difficulty breathing or swallowing. Patient denies any other symptoms at this time. The history is provided by the patient. No russian language professor was used. Rash Review of Systems Constitutional: Negative. Skin: Positive for itching and rash. Objective Physical Exam Constitutional: Appearance: Normal appearance. Pulmonary: Effort: Pulmonary effort is normal. Skin: Comments: Erythematous red bumps located in the areas marked above. Do not appear to be infectious.Blanchable. Neurological: Mental Status: She is alert. No past medical history on file. No past surgical history on file. ALLERGIES Patient has no known allergies. MEDICATIONS Docosahexanoic Acid 200 mg cap Take by mouth. predniSONE (DELTASONE) 10 mg tablet Take 4 tabs daily for 3 days, then 2 tabs daily for 3 days, then 1 tab daily for 3 days with food. famotidine (PEPCID) 20 mg tablet Take 1 tablet by mouth two times a day for 7 days. sucralfate (CARAFATE) 1 gram tablet Take 1 tablet by mouth before meals and at bedtime. (Patient not taking: Reported on 01/22/2021 ) albuterol HFA (PROAIR HFA) 90 mcg/actuation inhaler Inhale 2 Puffs as instructed every 4 hours as needed. (Patient not taking: Reported on 05/14/2019 ) albuterol HFA (PROVENTIL HFA, VENTOLIN HFA) 90 mcg/actuation inhaler Inhale 2 Puffs as instructed every 4 hours as needed. (Patient not taking: Reported on 05/14/2019 ) No family history on file. Social History Tobacco Use Smoking status: Never Smokeless tobacco: Never ASSESSMENT/PLAN: 1. Sore throat - ICD9: 462, ICD10: J02.9 (primary diagnosis) - STREP A MOLECULAR (POC) - neg 2. Rash - ICD9: 782.1, ICD10: R21 - PREDNISONE 10 MG TABLET - FAMOTIDINE 20 MG TABLET - LYME AB EARLY <=30 DAY SYMPTOMS [place] So did add a Lyme just to rule that out. Patient educated about proper use of medication and supportive therapies. Patient will follow-up with signs and symptoms seem to be getting worse not better. Patient agreeable to care plan. Leia Mcdonough APRN.[employer] [facility] Progress note Author Ana Wynne [facility] April 29, 2023 6:10am Note Date/Time April 29, 2023 6:10am [facility] Medical Records Department [address] [place] [address] Progress Note - OBGYN 04/29/23608 MR#: [id number] Acct: [id number] Name: HEATHER ANGEL Rep #:[id number] : 1995 From: Ana valera MD PCP: Dr. Ada Garcia MD Status:ADM IN Location: IF148-5 Subjective Subjective Patient doing well without complaints. Tolerating PO. Ambulating and voiding without difficulty. infant feeding well. Denies chest pain, shortness of breath,calf pain/swelling, fevers, chills, lightheadedness. Objective Data Objective Data Vital Signs: Vital Signs Temp Pulse Resp BP Pulse Ox O2 Del Method 97.9 F 81 15 112/63 98 Room Air 04/29/23 05:00 04/29/23 05:00 04/29/23 05:00 04/29/23 05:00 04/29/23 05:00 04/29/23 05:00 Oxygen Delivery Method Room Air Weight: 176 lb 6.4 oz Body Mass Index (BMI) 31.2 Intake & Output: Intake and Output for Last 24 Hours 04/27/23 04/28/23 04/29/23 23:59 23:59 23:59 Intake Total 1056.07 / 1056.07 Output Total 1800 / 1800 Balance -743.93 / -743.93 Lab / Micro Data 04/28/23 02:45 Labs: Laboratory Results - last 24 hr 04/28/23 02:45: Antibody Screen NEGATIVE, Antibody Identification NEGATIVE ANTIBODY PANEL 04/28/23 06:23: Antigen Identification E ANTIGEN - NEGATIVE 04/28/23 06:23: Antigen Identification LITTLE c ANTIGEN - NEGATIVE 04/28/23 08:12: Screen NEGATIVE, Baby's Blood Type O POSITIVE, Baby's DANY NEGATIVE ROS Constitutional Constitutional: Reports systems reviewed and no addt'l complaints, except as documented Cardiovascular Cardiovascular: Reports systems reviewed and no addt'l complaints, except as documented Respiratory/Chest Respiratory/Chest: Reports systems reviewed and no addt'l complaints, except as documented Gastrointestinal Gastrointestinal: Reports systems reviewed and no addt'l complaints, except as documented Physical Exam Const alert, oriented x3 and no apparent distress HEENT Head and Scalp: atraumatic Resp normal respiratory effort GI soft to palpation and non-tender Bimanual Exam - Vag & Uterus: uterus non-tender Uterus Palpation: uterus fundus firm (below Umbilicus) Assessment & Plan (1) Rh negative state in antepartum period: COMMENT: Rhogam @28 weeks and PRN for Bleeding (2) Gestational thrombocytopenia: QUALIFIERS: Trimester: third trimester Qualified Code(s): O99.113- Other diseases of the blood and blood-forming organs and certain disorders involving the immune mechanism complicating , third trimester; D69.6 - Thrombocytopenia, unspecified COMMENT: 02/18:139. 7/:135. Rpt 36wk (3) Vaginal delivery: COMMENT: KW 38.3 IAL girl PLAN: Plan s/p PPD # 1 1. routine post delivery care 2. breast feeding- support given 3. rh negative 4. rubella immune 04/29/23 0610 <Electronically signed by Ana Wynne MD> Cosigner Signature (if applicable): CC: ~ Signed [facility] Work Phone: 1(750) 745-991109-04-2023 Discharge summary Author Jeanine Knight [facility] April 28, 2023 5:34am Note Date/Time April 28, 2023 5:34am [facility] Medical Records Department [address] [place] [address] Instructions for Home/Discharge Instructions 04/28/23 0534 MR#: [id number] Acct: [id number] Name: HEATHER ANGEL Rep #:[id number] : 1995 28 From: Jeanine Knight CNM PCP: Dr. Ada Garcia MD Status:ADM IN Discharge Instructions Diet Discharge Diet: No restrictions Activity Discharge Activity: Return to Normal Activity May resume sexual activity in: 6-8 weeks Dressing / Incision Call your doctor if you observe: Fever of 101 or Higher, Coldness, Increased Pain, Numbness or Tingling, Change in Color, Inability to urinate, Inability to have a bowel movement, Using more than 1 pad per hour, Shortness of breath, Dizziness, Fainting spells, Swelling in the ankles, Chest pain, Increased palpitations (irregular heartbeat), Calf discomfort and Uncontrolled pain Follow Up Care Please Follow Up With: Jeanine Knight CNM When: Please call the office to schedule your follow up appointment in 6 weeks. If you had high blood pressure please call to schedule an appointment in 2 weeks. Test Results: Test results from this visit will be discussed in further detail at your follow- up appointment, if applicable. Discharge Plan Admission Admit Date/Time: 04/28/23 02:35 Attending Provider: Jeanine Knight Primary Care Provider: Ada Garcia Discharge Orders/Prescriptions Prescriptions: No Action [id number] 27 mg iron-800 mcg-260 mg capsule PO omega-3 fatty acids Capsule 600 mg PO DAILY ascorbic acid (vitamin C) [Vitamin C] 250 mg tablet 250 mg PO DAILY Referrals / Follow Up: Ada Garcia MD [Primary Care Provider] - Disposition Disposition (needs filled in before D/C Order can be placed): Home, Self Care 04/28/23 0534<Electronically signed by Jeanine Knight CNM>Jeanine Knight CNM CC: Dr. Ada Garcia MD ~ Signed [facility] Work Phone: 1(115) 285-422209-04-2023 Procedure [facility] 04-28-2023 History and physical note Author Jeanine Knight [facility] April 28, 2023 3:12am Note Date/Time April 28, 2023 3:13am [facility] Medical Records Department [address] [place] [address] H&P Exam - COTTON BROKER 04/28/23 0309 MR#: [id number] Acct: [id number] Name: HEATHER ANGEL Rep #:[id number] : 1995 28 From: Jeanine Knight CNM PCP: Dr. Ada Garcia MD Status:ADM IN Location: AQ620-7 HPI - General General Date of Admission: 04/28/23 Date of Service: 04/28/23 HPI Narrative HEATHER ANGEL, is a 28 F , 38.3 weeks, who presents in active labor Maternal Data Information RONEY Calculator Estimated Delivery Date Method Current WG Current Estimate 05/09/23 Ultrasound #2 38w 3d Other Estimates 04/30/23 LMP (Certain) 39w 5d 05/10/23 Ultrasound #1 38w 2d Final RONEY: 05/09/23 Final RONEY Source: US >20 weeks Gestational age: 38.3 weeks [facility] Medical History (Updated 04/28/23 @ 03:12 by Jeanine Knight CNM) Biotinidase deficiency Galactosemia Thrombocytopenia affecting Urinary tract infection with hematuria Home Medications PNV no.151-iron 27 mg-folic 800 mcg-omega3 260 bm-amr-dch-fish capsule cap PO 09/10/22 [History Last Taken Unknown] ascorbic acid (vitamin C) 250 mg tablet (Vitamin C) 250 mg PO DAILY 04/10/23 [History Last Taken 04/10/23 08:00 250 mg] omega-3 fatty acids 600 mg PO DAILY 04/10/23 [History Last Taken 04/10/23 08:00 600 mg] Allergy/AdvReac Type Severity Reaction Status Date / Time No Known Allergies Allergy Verified 04/22/23 09:59 Family History Grandfather Cancer unknown type Grandmother Hypertension Ovarian cancer Paternal Grandfather Hypertension Grandmother Asthma Social History adopted: No household members: spouse and children number of children: 1 current occupational status: unemployed current occupation: [employer] pets and animals: Yes pets and animals: dog(s) history of recent travel: No sexually active: Yes Smoking Status: Never smoker alcohol intake: never substance use type: does not use well-balanced diet: daily or most days caffeine: No eating out: rarely or never during the past year weight has: decreased > 10 lbs what type of physical activity do you participate in: none gabriela/restoration: Advent seatbelt use: always do you feel safe at home: Yes 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 Date Name GA/Weeks Outcome Route Bth Weight Gen Labor Lgth Anesthesia Del Locatn Provider FOB Unknown 11/2020 spontaneous Unknown 12/2020 spontaneous Unknown 08/2021 Renae 40 live - full term 9lbs 11oz Male 24 epidural [facility] SM Delivery Date: Last Updated by: Chacha GONG 40w SM Renae Visit Details Expected Delivery Route/Plan Labor Preferences- CB/BF classes: no labor support person: Bam labor intervention preferences: [] pain management options preferred: epidural cut cord/dad catch: cord : yes PP control planned: discussed discussed possible routes of delivery and associated risks: [] special requests: [] Plans Covid status: unvaccinated Flu vaccine: no Tdap vaccine: given Rhogam: given 02/18 LARC form signed: done movement and labor precautions reviewed. Problem list reviewed and updated with the most current plan of care details and appropriate orders placed. Relevant counseling for the gestational age provided. Continue routine care and follow up unless otherwise noted in visit notes/problem list details OB Flowsheet Initial Weight: Not Recorded Date -?-?-?-?-?-?-?-?-?-?-?-?- EGA Weight BP Urine Prot -?-?-?-?-?-?-?-?-?-?-?-?- Glucose FHR FuHt Pres Dilation -?-?-?-?-?-?-?-?-?-?-?-?- Effaced St Visit Note 09/16/22 -?-?-?-?-?-?-?-?-?-?-?-?- 6w 3d 143 lb 123/73 -?-?-?-?-?-?-?-?-?-?-?-?- 120 -?-?-?-?-?-?-?-?-?-?-?-?- SM- CRL 4 mm livan ble to get clear due date but possible 05/10/23 based on MSD 10/01/22 -?-?-?-?-?-?-?-?-?-?-?-?- 8w 4d 146 lb 122/75 Negative -?-?-?-?-?-?-?-?-?-?-?-?- Negative 150 -?-?-?-?-?-?-?-?-?-?-?-?- SM- CRL 1.75cm e dd 05/0910/29/22 -?-?-?-?-?-?-?-?-?-?-?-?- 12w 4d 148 lb 2 oz 132/72 Nega tive -?-?-?-?-?-?-?-?-?-?-?-?- Negative 157 -?-?-?-?-?-?-?-?-?-?-?-?- JV- no complaint s today. anatomy scan ordered. 11/25/22 -?-?-?-?-?-?-?-?-?-?-?-?- 16w 3d 149 lb 132/70 Negative -?-?-?-?-?-?-?-?-?-?-?-?- Negative 155 -?-?-?-?-?-?-?-?-?-?-?-?- MH-No VB. Doing well. MFM anatomy US 12/1212/24/22 -?-?-?-?-?-?-?-?-?-?-?-?- 20w 4d 157 lb 115/72 Negative -?-?-?-?-?-?-?-?-?-?-?-?- Negative 155 20 -?-?-?-?-?-?-?-?-?-?-?-?- KW- +FM. no vb/c ramping. no concerns. discussed placental lakes- US q 4 weeks 01/21/23 -?-?-?-?-?-?-?-?-?-?-?-?- 24w 4d 161 lb 2 oz 102/65 Nega tive -?-?-?-?-?-?-?-?-?-?-?-?- Negative 150 25 -?-?-?-?-?-?-?-?-?-?-?-?- KW- + FM. no vb/ lof/ctx. US today for lakes. 28 week labs discussed. 02/18/23 -?-?-?-?-?-?-?-?-?-?-?-?- 28w 4d 165 lb 130/72 -?-?-?-?-?-?-?-?-?-?-?-?- 156 28 -?-?-?-?-?-?-?-?-?-?-?-?- JV- no lof, vagi nal bleeding, dec fm. has slight dec in plts today. will recheck in 4 weeks. gct is normal. ultrasound done today is pending. 03/04/23 -?-?-?-?-?-?-?-?-?-?-?-?- 30w 4d 165 lb 6 oz 106/68 Nega tive -?-?-?-?-?-?-?-?-?--?-?-?- Negative 140 31 -?-?-?-?-?-?-?-?-?-?-?-?- KW-+FM. no vb/lo f/ctx. CBC next visit. 39% per growth US 03/18/23 -?-?-?-?-?-?-?-?-?-?-?-?- 32w 4d 169 lb 118/74 Negative -?-?-?-?-?-?-?-?-?-?-?-?- Negative 146 32 -?-?-?-?-?-?-?-?-?-?-?-?- MH-No VB, LOF. G ood FM. CBC and growth US today. 04/01/23 -?-?-?-?-?-?-?-?-?-?-?-?- 34w 4d 171 lb 4 oz 117/71 Nega tive -?-?-?-?-?-?-?-?-?-?-?-?- Negative 140 35 -?-?-?-?-?-?-?-?-?-?-?--?- SM- no vb lof go od fm no rgular ctx 04/15/23 -?-?-?-?-?-?-?-?-?-?-?-?- 36w 4d 175 lb 6 oz 111/71 Nega tive -?-?-?-?-?-?-?-?-?-?-?-?- Negative 140 37 -?-?-?-?-?-?-?-?-?-?-?-?- SM- no vb lof go od fm n oregular ctx gbs done SM- no vb lof good fm no reg ular ctx gbs done 04/22/23 -?-?-?-?-?-?-?--?-?-?-?-?- 37w 4d 177 lb 2 oz 108/74 Nega tive -?-?-?-?-?-?-?-?-?-?-?-?- Negative 140 37 2 -?-?-?-?-?-?-?-?-?-?-?-?- 70 -2 KW- no vb/ lof. some contractions. good fm. labor precautions NST FHR Rate Baby A Baseline: 150 Variability:: Moderate Accelerations:: 15 x 15 Decelerations:: None NST Reactive:: Yes FHR Category:: Category I Uterine Activity:: 3-5 minutes ROS Constitutional Constitutional: Denies change in weight, fatigue, fever(s), headache(s), poor appetite or weakness Eyes Eyes: Denies blurry vision, change in vision, floaters, seeing flashes or spots in vision ENT HEENT: Denies dizziness, headache(s), loss taste/smell or sore throat Cardiovascular Cardiovascular: Denies chest pain, dizziness, dyspnea, irregular heart rhythm, lightheadedness, palpitations or rapid heart rate Respiratory/Chest Respiratory/Chest: Denies change in mental status, chest tightness, cough, dyspnea or breast pain Gastrointestinal Gastrointestinal: Denies anorexia, chewing difficulty, constipation, diarrhea or weight changes Genitourinary Genitourinary: Denies difficulty urinating, dysuria, flank pain, genital pain, urinary frequency or urinary urgency Musculoskeletal Musculoskeletal: Denies back pain, difficulty walking, extremity pain, joint pain, muscle cramps or muscle weakness Integumentary Integumentary: Denies lesions or unusual bruising Neurologic Neurologic: Denies abnormal movements, abnormal speech, dizziness, numbness, seizure-like activity, syncope or weakness Psychiatric Psychiatric: Denies behavioral changes, change in appetite, confusion, depression, homicidal ideation, suicidal ideation or suicidal thoughts Endocrine Endocrinology: Denies excessive sweating, polydipsia or polyuria Hematologic/Lymphatic Hematologic/Lymphatic: Denies anemia Allergic/Immunologic Allergic/Immunologic: Denies itchy eyes, lip swelling, throat swelling, tongue swelling or wheezing Vital Signs Vital Signs Vital Signs: 04/28/23 02:24 04/28/23 02:26 04/28/23 02:26 Temperature Temperature Source Temporal Pulse Rate 95 Blood Pressure 136/83 H BP Systolic 136 BP Diastolic 83 04/28/23 02:24 Temperature 97.3 F L Temperature Source Pulse Rate Blood Pressure BP Systolic BP Diastolic Weight Weight: 176 lb 6.4 oz Body Mass Index (BMI) 31.2 Physical Exam Const alert, oriented x3 and no apparent distress General Appearance: cooperative Orientation / Consciousness: awake HEENT normocephalic Neck full ROM Lymph Lymphatic: no lymphadenopathy noted Chest inspection of chest normal Resp normal respiratory effort and normal air movement Effort and Inspection: able to speak in complete sentences and symmetric chest movement GI soft to palpation and non-tender Inspection: gravid Palpation: soft; Negative for tender external exam normal Back/Spine normal to inspection Extremity normal to inspection and full ROM Skin no rashes or lesions noted Psych mental status grossly normal Appearance: grossly normal Speech: normal speech Labs Labs Labs: Blood Type O NEGATIVE Antibody Screen NEGATIVE Hct 35.5 % (37-47) L Hgb 11.8 g/dL (12.0-15.0) L Obstetrics US Syphilis Total Ab Non-reactive Rubella IgG Antibody Reactive (Nonreactive) Hep Bs Antigen Non-Reactive (Nonreactive) Chlamydia DNA (AUDRA) Negative (Negative) Neisseria gonorrhoeae DNA (AUDRA) Negative (Negative) HIV 1&2 Antibody Non-Reactive (Nonreactive) Glucose 1 Hr 50 gm 106 mg/dL (70-140) Rhogam given: Yes Assessment & Plan (1) Gestational thrombocytopenia: QUALIFIERS: Trimester: third trimester Qualified Code(s): O99.113 - Other diseases of the blood and blood-forming organs and certain disorders involving the immune mechanism complicating , third trimester; D69.6 - Thrombocytopenia, unspecified COMMENT: 02/18:139. 7/:135. Rpt 36wk (2) Placental abnormality: QUALIFIERS: Trimester: first trimester Qualified Code(s): O43.101 - Malformation of placenta, unspecified, first trimester COMMENT: lakes- growth US q4 weeks-39% at 28 weeks, 41% at 32 weeks, 55% at 36 weeks (3) Rh negative state in antepartum period: COMMENT: Rhogam @28 weeks and PRN for Bleeding (4) History of miscarriage, currently : COMMENT: 2 Miscarriages in 2021 (5) Supervision of high risk , antepartum: COMMENT: [id number], RONEY 05/09/23, PC Renae, Bam (6) : QUALIFIERS: Weeks of gestation: 37 weeks Qualified Code(s): Z3A.37 - 37 weeks gestation of COMMENT: GBS neg,discussed genetic & carrier testing (7) Urinary tract infection with hematuria: (8) Active labor: PLAN: Patient presents IAL, plan expectant management for , pitocin/AROM PRN if needed. Pain management: plans epidural. GBS negative. Management of any complications: thrombocytopenia I have reviewed the [facility] and made any clinically relevant updates. Charges/Coding Multi Select Codes Urinary/Genital Urinary/Genital CPT Codes: No Charge 04/28/23311 <Electronically signed by Jeanine Knight CNM> Cosigner Signature (if applicable): CC: MAX Knight; Dr. Ada Garcia MD~ Signed [facility] Work Phone: [phone] 405-559607-03-2022 History of Present illness Narrative* Rosanna Ramirez APRN.CNP - 02/24/2022 3:35 PM EDT This is an Express Care eVisit note for Heather Angel eVisit/Questionnaire reviewed The chief complaint for the visit - Patient presents with: UTI Treated for UTI sx with antibiotics on 01/22/2022. Urine culture was negative, but advised to complete antibiotic. Recommend in person evaluation to r/o true UTI for recurrent symptoms. 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 COVID-19 affecting , antepartum resolved Gestational thrombocytopenia resolved Need for rhogam due to Rh negative mother resolved Need for Tdap vaccination re solved resolved Recurrent loss res olved Supervision of high risk , antepartum resolved 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 COVID-19 affecting , antepartum resolved Gestational thrombocytopenia resolved Need for rhogam due to Rh negative mother resolved resolved Recurrent loss res olved Supervision of high risk , antepartum resolved 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 COVID-19 affecting , antepartum resolved Gestational thrombocytopenia resolved Need for rhogam due to Rh negative mother resolved resolved Recurrent loss res olved Supervision of high risk , antepartum resolved 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 COVID-19 affecting , antepartum resolved Gestational thrombocytopenia resolved Need for rhogam due to Rh negative mother resolved resolved Recurrent loss res olved Supervision of high risk , antepartum resolved 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 COVID-19 affecting , antepartum resolved Gestational thrombocytopenia resolved Need for rhogam due to Rh negative mother resolved resolved Recurrent loss res olved Supervision of high risk , antepartum resolved 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 COVID-19 affecting , antepartum resolved Gestational thrombocytopenia resolved Need for rhogam due to Rh negative mother resolved resolved Recurrent loss res olved Supervision of high risk , antepartum resolved Active labor at term resolve d 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 COVID-19 affecting , antepartum resolved Gestational thrombocytopenia resolved Need for rhogam due to Rh negative mother resolved resolved Recurrent loss res olved SROM (spontaneous rupture of membranes) resolved Supervision of high risk , antepartum resolved Vaginal delivery resolved [facility] Work Phone: Evaluation note* Diagnosis UTI symptoms- Primary Other symptoms involving urinary system documented in this encounter [facility] note* Diagnosis Onset Date Resolution Status acute Urinary tract infection with hematuria acute Urinary tract infection with hematuria acute [facility] Work Phone: evaluation note* Diagnosis Onset Date Resolution Status acute Urinary tract infection with hematuria acute Urinary tract infection with hematuria acute History of miscarriage, currently acute acute Rh negative state in antepartum period acute Supervision of high risk , antepartum acute Urinary tract infection with hematuria acute [facility] Work Phone: evaluation note* Diagnosis Onset Date Resolution Status acute Urinary tract infection with hematuria acute Urinary tract infection with hematuria acute History of miscarriage, currently acute acute Rh negative state in antepartum period acute Supervision of high risk , antepartum acute Urinary tract infection with hematuria acute History of miscarriage, currently acute acute Rh negative state in antepartum period acute Supervision of high risk , antepartum acute Urinary tract infection with hematuria acute [facility] Work Phone: evaluation note* Diagnosis Onset Date Resolution Status History of miscarriage, currently acute acute Rh negative state in antepartum period acute Supervision of high risk , antepartum acute Urinary tract infection with hematuria acute History of miscarriage, currently acute acute Rh negative state in antepartum period acute Supervision of high risk , antepartum acute Urinary tract infection with hematuria acute History of miscarriage, currently acute acute Rh negative state in antepartum period acute Supervision of high risk , antepartum acute Urinary tract infection with hematuria acute History of miscarriage, currently acute Placental abnormality acute acute Rh negative state in antepartum period acute Supervision of high risk , antepartum acute Urinary tract infection with hematuria acute History of miscarriage, currently acute Placental abnormality acute acute Rh negative state in antepartum period acute Supervision of high risk , antepartum acute Urinary tract infection with hematuria acute [facility] Work Phone: evaluation note* Diagnosis Onset Date Resolution Status History of miscarriage, currently acute acute Rh negative state in antepartum period acute Supervision of high risk , antepartum acute Urinary tract infection with hematuria acute History of miscarriage, currently acute acute Rh negative state in antepartum period acute Supervision of high risk , antepartum acute Urinary tract infection with hematuria acute History of miscarriage, currently acute Placental abnormality acute acute Rh negative state in antepartum period acute Supervision of high risk , antepartum acute Urinary tract infection with hematuria acute History of miscarriage, currently acute Placental abnormality acute acute Rh negative state in antepartum period acute Supervision of high risk , antepartum acute Urinary tract infection with hematuria acute Gestational thrombocytopenia acute History of miscarriage, currently acute Placental abnormality acute acute Rh negative state in antepartum period acute Supervision of high risk , antepartum acute Urinary tract infection with hematuria acute [facility] Work Phone: evaluation note* Diagnosis Onset Date Resolution Status History of miscarriage, currently acute acute Rh negative state in antepartum period acute Supervision of high risk , antepartum acute Urinary tract infection with hematuria acute History of miscarriage, currently acute Placental abnormality acute acute Rh negative state in antepartum period acute Supervision of high risk , antepartum acute Urinary tract infection with hematuria acute History of miscarriage, currently acute Placental abnormality acute acute Rh negative state in antepartum period acute Supervision of high risk , antepartum acute Urinary tract infection with hematuria acute Gestational thrombocytopenia acute History of miscarriage, currently acute Placental abnormality acute acute Rh negative state in antepartum period acute Supervision of high risk , antepartum acute Urinary tract infection with hematuria acute Gestational thrombocytopenia acute History of miscarriage, currently acute Placental abnormality acute acute Rh negative state in antepartum period acute Supervision of high risk , antepartum acute Urinary tract infection with hematuria acute Gestational thrombocytopenia acute History of miscarriage, currently acute Placental abnormality acute acute Rh negative state in antepartum period acute Supervision of high risk , antepartum acute [facility] Work Phone: evaluation note* Diagnosis Onset Date Resolution Status History of miscarriage, currently acute Placental abnormality acute acute Rh negative state in antepartum period acute Supervision of high risk , antepartum acute Urinary tract infection with hematuria acute History of miscarriage, currently acute Placental abnormality acute acute Rh negative state in antepartum period acute Supervision of high risk , antepartum acute Urinary tract infection with hematuria acute Gestational thrombocytopenia acute History of miscarriage, currently acute Placental abnormality acute acute Rh negative state in antepartum period acute Supervision of high risk , antepartum acute Urinary tract infection with hematuria acute Gestational thrombocytopenia acute History of miscarriage, currently acute Placental abnormality acute acute Rh negative state in antepartum period acute Supervision of high risk , antepartum acute Urinary tract infection with hematuria acute Gestational thrombocytopenia acute History of miscarriage, currently acute Placental abnormality acute acute Rh negative state in antepartum period acute Supervision of high risk , antepartum acute Gestational thrombocytopenia acute History of miscarriage, currently acute Placental abnormality acute acute contractions acute Rh negative state in antepartum period acute Supervision of high risk , antepartum acute [facility] Work Phone: Evaluation note* Diagnosis Onset Date Resolution Status History of miscarriage, currently acute Placental abnormality acute acute Rh negative state in antepartum period acute Supervision of high risk , antepartum acute Urinary tract infection with hematuria acute History of miscarriage, currently acute Placental abnormality acute acute Rh negative state in antepartum period acute Supervision of high risk , antepartum acute Urinary tract infection with hematuria acute Gestational thrombocytopenia acute History of miscarriage, currently acute Placental abnormality acute acute Rh negative state in antepartum period acute Supervision of high risk , antepartum acute Urinary tract infection with hematuria acute Gestational thrombocytopenia acute History of miscarriage, currently acute Placental abnormality acute acute Rh negative state in antepartum period acute Supervision of high risk , antepartum acute Urinary tract infection with hematuria acute Gestational thrombocytopenia acute History of miscarriage, currently acute Placental abnormality acute acute Rh negative state in antepartum period acute Supervision of high risk , antepartum acute Gestational thrombocytopenia acute History of miscarriage, currently acute Placental abnormality acute acute Rh negative state in antepartum period acute Supervision of high risk , antepartum acute Urinary tract infection with hematuria acute contractions resolve d Gestational thrombocytopenia acute History of miscarriage, currently acute Placental abnormality acute acute Rh negative state in antepartum period acute Supervision of high risk , antepartum acute contractions resolve d Gestational thrombocytopenia acute History of miscarriage, currently acute Placental abnormality acute acute Rh negative state in antepartum period acute Supervision of high risk , antepartum acute Urinary tract infection with hematuria acute [facility] Work Phone: evaluation note* Diagnosis Onset Date Resolution Status History of miscarriage, currently resolved Placental abnormality resolv ed resolved Supervision of high risk , antepartum resolved Urinary tract infection with hematuria resolved Gestational thrombocytopenia acute History of miscarriage, currently resolved Placental abnormality resolv ed resolved Supervision of high risk , antepartum resolved Urinary tract infection with hematuria resolved Gestational thrombocytopenia acute History of miscarriage, currently resolved Placental abnormality resolv ed resolved Supervision of high risk , antepartum resolved Urinary tract infection with hematuria resolved Gestational thrombocytopenia acute History of miscarriage, currently resolved Placental abnormality resolv ed resolved Supervision of high risk , antepartum resolved Gestational thrombocytopenia acute History of miscarriage, currently resolved Placental abnormality resolv ed resolved contractions resolve d Supervision of high risk , antepartum resolved Urinary tract infection with hematuria resolved Gestational thrombocytopenia acute History of miscarriage, currently resolved Placental abnormality resolv ed resolved contractions resolve d Supervision of high risk , antepartum resolved Gestational thrombocytopenia acute History of miscarriage, currently resolved Placental abnormality resolv ed resolved Supervision of high risk , antepartum resolved Urinary tract infection with hematuria resolved Gestational thrombocytopenia acute History of miscarriage, currently resolved Placental abnormality resolv ed resolved Supervision of high risk , antepartum resolved Urinary tract infection with hematuria resolved Gestational thrombocytopenia acute Active labor resolved History of miscarriage, currently resolved Placental abnormality resolv ed resolved Supervision of high risk , antepartum resolved Urinary tract infection with hematuria resolved [facility] Work Phone: Evaluation note* Diagnosis Sore throat- Primary Acute pharyngitis Rash Rash and other nonspecific skin eruption [facility] Diagnosis Onset Date Resolution Status Admit Date Biotinidase deficiency acute Ju 2024 10:17am Galactosemia acute January 27 10:17am History of miscarriage, curr ently acute January 27, 2025 1 0:17am History of thrombocytopenia acute January 27, 2025 10:17am 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 Medical Records Department [address] [place] [address] OB Triage Progress Note 04/10/231933 MR#: [id number] Acct: [id number] Name: STANLEYHEATHER CHELA Rep #:[id number] : 1995 28 From: Jeanine Knight CNM PCP: Dr. Ada Garcia MD Status:REG CLI Y DOS: Location: [address] Progress Notes Date of Service: 04/10/23 Progress Note: Patient presents for triage evaluation secondary to contractions FHT: 150 Moderate variability reactive no decelerations category I tracing [place]: mild Contractions-resolved with oral hydration Assessment and plan: Reactive NST, reassuring maternal and status patientdischarged to home to follow-up at next appointment. Urine neg for UTI. See problem list details for additional plan information. Laboratory Studies: Laboratory Tests 04/10/23 Range/Units 18:50 Urine Color Yellow (Yellow) Urine Clarity Clear (Clear) Urine pH 7.0 (5.0 - 8.0) Ur Specific [place] 1.010 (1.002-1.030) Urine Protein Negative (Negative) mg/dl Urine Glucose (UA) Normal (Normal) mg/dl Urine Ketones Negative (Negative) mg/dl Urine Occult Blood Negative (Negative) /ul Urine Nitrite Negative (Negative) Urine Bilirubin Negative (Negative) mg/dL Urine Urobilinogen Normal (Normal) mg/dl Ur Leukocyte Esterase 25 H (Negative) /ul Urine RBC 0 SEEN (0-5) /hpf Urine WBC 0 SEEN (0-5) /hpf Ur Squamous Epith Cells 0 SEEN (5-10) /hpf Urine Bacteria 0 SEEN (None Seen) /hpf Urine Mucus 0 SEEN (<or=2+) /hpf Charges/Coding Multi Select Codes Urinary/Genital Urinary/Genital CPT Codes: 60299-14 non-stress test Interp Assessment & Plan (1) contractions: COMMENT: 04/10- , urine neg, resolved with oral hydration D/C home PLAN: Urine culture-neg SVE oral hydration d/c home (2) Gestational thrombocytopenia: QUALIFIERS: Trimester: third trimester Qualified Code(s): O99.113- Other diseases of the blood and blood-forming organs and certain disorders involving the immune mechanism complicating , third trimester; D69.6 - Thrombocytopenia, unspecified COMMENT: 02/18:139. 7/:135. Rpt 36wk (3) Placental abnormality: QUALIFIERS: Trimester: first trimester Qualified Code(s): O43.101- Malformation of placenta, unspecified, first trimester COMMENT: lakes- growth US q4 weeks-39% at 28 weeks, 41% at 32 weeks (4) Rh negative state in antepartum period: COMMENT: Rhogam @28 weeks and PRN for Bleeding (5) History of miscarriage, currently : COMMENT: 2 Miscarriages in 2021 (6) Supervision of high risk , antepartum: COMMENT: [id number], RONEY 05/09/23, LYNDA Macdonald, Bam (7) : QUALIFIERS: Weeks of gestation: 30 weeks Qualified Code(s): Z3A.30 - 30 weeks gestation of COMMENT: discussed genetic & carrier testing 04/10/231939 <Electronically signed by Jeanine palmer CNM> Date _ Jeanine Knight CNM Cosigner Signature (if applicable): Date CC: MAX Knight; Dr. Ada Garcia MD ~ Signed [facility] Work Phone: Progress note Author Jeanine Knight [facility] Note Date/Time January 27, 2025 11:01 am [facility] [address] [place] [address], [address] [place] [address] OFFICE VISIT Date of Service: 01/27/25 MR#: [id number] Acct: [id number] Name: HEATHER ANGEL Rep #: [id number] : 1995 Provider: MAX Knight Age/Sex: 29/F Location: [facility] [place] Status: Signed Intake Vital Signs 09/03/24 06:10 01/27/25 10:32 Height 5 ft 3 in 5 ft 3 in Weight: 142 lb 6 oz BMI 25.2 BP 115/75 Intake Visit Reasons: NOB LMP 4/ Chief Complaint: New OB Training Generalist Required: No Is patient in pain?: No Allergies No Known Allergies Allergy (Verified 01/27/25 10:30) Medications ?Medication ?Instructions ?Recorded ?Confirmed ?Type PNV no.151-iron 27 mg-folic 800 cap PO 09/10/22 History mcg-omega3 260 [id number] capsule omega-3 fatty acids 600 mg PO DAILY 04/10/2301/16 History Last Menstrual Period: 11/24/24 PFS PFS Medical History Galactosemia Biotinidase deficiency Abnormal biopsy result Family History Grandfather Cancer unknown type Grandmother Hypertension Ovarian cancer Paternal Grandfather Hypertension Grandmother Asthma Father Hypertension Social History adopted: No household members: spouse and children number of children: 2 current occupation: [employer] current occupational exposures/hazards: No pets and animals: Yes pets and animals: dog(s) and farm animals history of recent travel: No sexually active: Yes Smoking Status: Never smoker second hand exposure: No alcohol intake: never substance use type: does not use well-balanced diet: daily or most days caffeine: No eating out: rarely or never during the past year weight has: decreased > 10 lbs what type of physical activity do you participate in: walking frequency: 1-2 times per week duration: 15-30 minutes/day gabriela/restoration: Advent seatbelt use: always do you feel safe at home: Yes 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 Date Name GA/Weeks Outcome Route Bth Weight Infant Gen Labor Lgth Anesthesia Del Locatn Provider FOB Unknown 11/2020 spontaneous Unknown 12/2020 spontaneous 10/02/21 Renae 40 live - full term 9lbs 11oz Male 23 ep idural [facility] Bam 04/28/23 Iveth Alba 38 live - full term [id number] Female epidural [facility] Rayna Kuhn Delivery Date: 10/02/21 Last Updated by: Chacha Farmer SROM 40w SM Renae Delivery Date: 04/28/23 Last Updated by: Sharda James IOL HPI NOB LMP 11/24 Details: HEATHER ANGEL is a 29 year old who presents for New OB visit. OB Visit RONEY Calculator Estimated Delivery Date Method Current WG Current Estimate 09/01/25 Ultrasound #1 9w 0d Other Estimates 08/31/25 LMP (Certain) 9w 1d Estimated Due Date: 08/31/26 Expected Delivery Route/Plan Labor Preferences- CB/BF classes: [] labor support person: [] labor intervention preferences: [] pain management options preferred: [] cut cord/dad catch: [] : [] PP control planned: [] discussed possible routes of delivery and associated risks: [] special requests: [] Specific Issue/Plans Covid status: [] Flu vaccine: [] Tdap vaccine: [] Rhogam: [] LARC form signed: [] Problem list reviewed and updated with the most current plan of care details andappropriate orders placed. Relevant counseling for the gestational age provided. Continue routine care and follow up unless otherwise noted in visit notes/problem list details Initial Weight: 142 lb Date -?-?-?-?-?-?-?-?-?-?--?-?- EGA Weight BP Urine Prot -?-?-?-?-?-?-?-?-?-?-?-?- Glucose FHR FuHt Pres Dilation -?-?-?-?-?-?-?-?-?-?-?-?- Effaced St Visit Note 01/27/25 -?-?-?-?-?-?-?-?-?-?-?-?- 9w 0d 142 lb 6 oz (+6 oz) 115/75 -?-?-?-?-?-?-?-?-?-?-?-?- 169 -?-?-?-?-?-?-?-?-?-?-?-?- KW- CRL cons wit h dates. denies nipt. lead exposure and requesting lead testing-added to NOB labs Menstrual History Last Menstrual Period: 11/24/24 Reported LMP: definite Normal amount/duration: Yes Frequency in days: 30 On hormonal BC at conception: No hCG+: 12/21/24 Antepartum Record Genetic Screening: Congenital Heart Defect: Other, Neural Tube Defect: Other, Hemoglobinopathy Or Carrier: Other, Cystic Fibrosis: Other, Chromosome Abnormality: Other, Bear-Sachs: Other, Hemophilia: Other, Intellectual Disability/Autism: Other, Recurrent Loss/Stillbirth: Patient (Pt w/2 miscarriages ), Other Structural Defect: Other, Other Genetic Disease: Other and Maternal Metabolic Disorder: Other Infection History: Live with someone with TB or Exposed to TB: No, Patient or Partner has history of Genital Herpes: No, Rash or Viral illness since last mentrual period: No, Prior GBS-Infected child: No, History of STD: No, HIV Infection: No, History of Hepatitis: No, Recent travel outside of [place]: No, Concern for hepatitis exposure: No, Varicella immune: Yes (Had chicken pox) and Covid Vaccinated: No Medical History Medical History: Positive: D (Rh) Sensitized (O-) and Breast and Negative: Diabetes, Hypertension, Heart disease, Auto-immune disorder, Kidney disease/UTI,Neurologic/epilepsy, Psychiatric, Depression/ depression, Hepatitis/liver disease, Varicosities/phlebitis, Thyroid dysfunction, Trauma/domestic violence, History of blood transfusions, Pulmonary (e.g.,TB,Asthma), Seasonal allergies, Drug/latex allergies/reactions, [place] Runner surgery, Operations/hospitalizations, Anesthetic complications, History of abnormal pap, Uterine anomaly/herb, Infertility, Anti-retroviral treatment, Relevant family history and Other ACOG First Trimester First Trimester: Desire for , Alcohol, Tobacco Cessation, Illicit/Recreational Drug/Substance Use, Intimate Partner Violence, Barriers to care, Unstable Housing, Communication Barriers, Environmental/Work Hazards, Anticipated Course of Care, Toxoplasmosis Precations, Use of Any medications, Sexual activity, Exercise, Dental Care, Sauna/Hot tub use, Seat Belt use, Childbirth classes/Hospital facilities, Travel, Indications for Ultrasound and Screening for Aneuploidy Second Trimester Second Trimester: Signs and Symptoms of Labor, Selecting a care provider, Reproductive Life Planning & Contreception, Care Planning, Depression/Anxiety and Intimate Partner Violence; Discussed Tobacco Cessation Third Trimester Third Trimester: Pain Management Plans, Labor support person(s), Immediate Larc, Movement Monitoring, Signs and Symptoms of Preeclampsia, Education and Intimate Partner Violence; Discussed Depression ROS Const Reports system reviewed and no additional complaints, except as documented, Denies fatigue, Denies headache(s) and Denies lethargy ENT Denies headache(s) Card Reports system reviewed and no additional complaints, except as documented Resp Reports system reviewed and no additional complaints, except as documented GI Reports system reviewed and no additional complaints, except as documented, Denies abdominal pain, Denies constipation, Denies cramping, Denies diarrhea andDenies dyspepsia Reports system reviewed and no additional complaints, except as documented, Denies abnormal vaginal bleeding, Denies difficulty voiding, Denies dyspareunia and Denies dysuria Musc Reports system reviewed and no additional complaints, except as documented Skin/Breast Reports system reviewed and no additional complaints, except as documented Neuro Yes system reviewed and no additional complaints, except as documented and No headache(s) Psych Reports system reviewed and no additional complaints, except as documented, Denies anhedonia and Denies anxiety Endo Reports system reviewed and no additional complaints, except as documented and Denies fatigue Exam Const General: cooperative, healthy appearing and comfortable Neck Neck: normal visual inspection and full ROM Chest Chest palpation & inspection: normal inspection of the chest Breast inspection: normal inspection of the breasts and normal inspection of theaxillae Breast palpation: normal palpation of the breasts and normal palpation of the axillae Resp Effort & Inspection: normal respiratory effort and able to speak in complete sentences GI Inspection: normal to inspection Palpation: soft External Female Exam: normal external appearance and normal appearance of the urethra Urethra: normal appearance of the urethra Skin General: no rashes or lesions noted Neuro General: patient alert, patient awake and patient oriented x3 Extrem General: normal to inspection and full ROM Psych Appearance: grossly normal and well kempt Mental Status: mental status grossly normal Mood: congruent mood Affect: normal affect Speech and Movement: speech and movement normal Thought Process: normal Thought Content: normal Coding Level of Care Code OB Routine Diagnoses History of thrombocytopenia Z86.2 Rh negative status during O26.899; Z67.91 History of miscarriage, currently O09.299 Supervision of high-risk O09.90 9 weeks gestation of Z3A.09 Weeks of gestation: 9 weeks 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 Lead exposure Z77.011 Assessment and Plan Assessment and Plan (1) History of thrombocytopenia: Status: Acute Comment: First (2) Rh negative status during : Status: Acute Comment: Rhogam @ 28wks & PRN; to call with any bleeding/spotting (3) History of miscarriage, currently : Status: Acute Comment: 2 Miscarriages in 2020 (4) Supervision of high-risk : Status: Acute Comment: ; RONEY 08/31/24; PC: Renae & Iveth; : Bam (5) : Status: Acute Qualifiers: Weeks of gestation: 9 weeks Qualified Code(s): Z3A.09 - 9 weeks gestation of Comment: Discussed genetic/carrier testing - undecided; prior carrier testing done (6) 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 ACOG book offered to patient. Discussed routine and specially indicated labs if needed- patient consents to testing. See problem list details for plan information. Optional screening including maternal carrier screenings, neural tube defect screening, genetic screening options including quad screen, nuchal translucency, sequential screening, and NIPT screening offered to patient and patient chose: [ ] 01/27/25 1101 <Electronically signed by Jeanine palmer CNM> Date _ Jeanine Knight CNM Cosigner Signature: Date (if applicable) CC: ~ [facility] Work Phone: Progress note Author Serenity Shin [facility] Note Date/Time March 23, 2025 10:5 9am [facility] [address], [address] [place] [address] OFFICE VISIT Date of Service: 03/23/25 MR#: [id number] Acct: [id number] Name: HEATHER ANGEL Rep #: [id number] : 1995 Provider: Dr. Tiffany Luna DO Age/Sex: 29/F Location: [facility] [place] Status: Signed Intake Vital Signs 01/27/25 10:32 02/24/25 15:20 03/23/25 10:36 03/23/25 10:38 Height 5 ft 3 in 5 ft 3 in 5 ft 3 in 5 ft 3 in Weight: 142 lb 6 oz 144 lb 147 lb 8 oz BMI 25.2 25.4 26.1 BP 115/75 119/75 123/70 H Intake Visit Reasons: 17wk ob Training Generalist Required: No Is patient in pain?: No Allergies No Known Allergies Allergy (Verified 03/23/25 10:36) Medications ?Medication ?Instructions ?Recorded ?Confirmed ?Type PNV no.151-iron 27 mg-folic 800 cap PO 09/10/22 History mcg-omega3 260 yt-fsk-ljg-fish capsule omega-3 fatty acids 600 mg PO DAILY 04/10/23 History Last Menstrual Period: 11/24/24 Zika: Zika virus screening: Negative : No PFSH PFSH Medical History Galactosemia Biotinidase deficiency Abnormal biopsy result Family History Grandfather Cancer unknown type Grandmother Hypertension Ovarian cancer Paternal Grandfather Hypertension Grandmother Asthma Father Hypertension Social History adopted: No household members: spouse and children number of children: 2 current occupation: [employer] current occupational exposures/hazards: No pets and animals: Yes pets and animals: dog(s) and farm animals history of recent travel: No sexually active: Yes Smoking Status: Never smoker second hand exposure: No alcohol intake: never substance use type: does not use well-balanced diet: daily or most days caffeine: No eating out: rarely or never during the past year weight has: decreased > 10 lbs what type of physical activity do you participate in: walking frequency: 1-2 times per week duration: 15-30 minutes/day gabriela/restoration: Advent seatbelt use: always do you feel safe at home: Yes 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 Date Name GA/Weeks Outcome Route Bth Weight Infant Gen Labor Lgth Anesthesia Del Locatn Provider FOB Unknown 11/2020 spontaneous Unknown 12/2020 spontaneous 10/02/21 Renae 40 live - full term 9lbs 11oz Male [address] [facility] SM Bam 04/28/23 Iveth Alba 38 live - full term [id number] Female epidural [facility] Rayna Knight Bam Delivery Date: 10/02/21 Last Updated by: Chacha Farmer SROM 40w SM Renae Delivery Date: 04/28/23 Last Updated by: Sharda James IOL HPI 17wk ob Details: HEATHER ANGEL is a 29 year old who presents for routine OB visit. OB Visit RONEY Calculator Estimated Delivery Date Method Current WG Current Estimate 09/01/25 Ultrasound #1 16w 6d Other Estimates 08/31/25 LMP (Certain) 17w 0d Expected Delivery Route/Plan Labor Preferences- CB/BF classes: [] labor support person: [] labor intervention preferences: [] pain management options preferred: [] cut cord/dad catch: [] : [] PP control planned: [] discussed possible routes of delivery and associated risks: [] special requests: [] Specific Issue/Plans Covid status: [] Flu vaccine: [] Tdap vaccine: [] Rhogam: [] LARC form signed: [] Problem list reviewed and updated with the most current plan of care details and appropriate orders placed. Relevant counseling for the gestational age provided. Continue routine care and follow up unless otherwise noted in visit notes/problem list details Initial Weight: 142 lb Date -?-?-?-?-?-?-?-?-?-?-?-?- EGA Weight BP Urine Prot -?-?-?-?-?-?-?-?-?-?-?-?- Glucose FHR FuHt Pres Dilation -?-?-?-?-?-?-?-?-?-?-?-?- Effaced St Visit Note 01/27/25 -?-?-?-?-?-?-?-?-?-?-?-?- 9w 0d 142 lb 6 oz (+6 oz) 115/75 -?-?-?-?-?-?-?-?-?-?-?-?- 169 -?-?-?-?-?-?-?-?-?-?-?-?- KW- CRL cons wit h dates. denies nipt. lead exposure and requesting lead testing-added to NOB labs 02/24/25 -?-?-?-?-?-?-?-?-?-?-?-?- 13w 0d 144 lb (+2 lb) 119/75 Negative -?-?-?-?-?-?-?-?-?-?-?-?- Negative 150 -?-?-?-?-?-?-?-?-?-?-?-?- SM- no vb crampi ng 03/23/25 -?-?-?-?-?-?-?-?-?-?-?-?- 16w 6d 147 lb 8 oz (+5 lb 8 oz) 123/70 Negative -?-?-?-?-?-?-?-?-?-?-?-?- Negative 147 -?-?-?-?-?-?-?-?-?-?-?-?- JV- starting to feel some fluttering. no cramping or bleeding. ACOG First Trimester First Trimester: Desire for , Alcohol, Tobacco Cessation, Illicit/Recreational Drug/Substance Use, Intimate Partner Violence, Barriers to care, Unstable Housing, Communication Barriers, Environmental/Work Hazards, Anticipated Course of Care, Toxoplasmosis Precations, Use of Any medications, Sexual activity, Exercise, Dental Care, Sauna/Hot tub use, Seat Belt use, Childbirth classes/Hospital facilities, Travel, Indications for Ultrasound and Screening for Aneuploidy; Discussed Second Trimester Second Trimester: Signs and Symptoms of Labor, Selecting a care provider, Reproductive Life Planning & Contreception, Care Planning, Depression/Anxiety and Intimate Partner Violence; Discussed Tobacco Cessation Third Trimester Third Trimester: Pain Management Plans, Labor support person(s), Immediate Larc, Movement Monitoring, Signs and Symptoms of Preeclampsia, Education and Intimate Partner Violence; Discussed Depression Results POC Urinalysis 2 Dip (Clinic) Office Urine Glucose Negative Last Edit by Chela Delcid on 03/23/25 10: 51 Office Urine Protein Negative Last Edit by Chela Delcid on 03/23/25 10: 51 Coding Level of Care Code OB Routine Diagnoses Lead exposure Z77.011 History of thrombocytopenia Z86.2 Rh negative status during O26.899; Z67.91 History of miscarriage, currently O09.299 Supervision of high-risk O09.90 16 weeks gestation of Z3A.16 Weeks of gestation: 16 weeks 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 Assessment and Plan Assessment and Plan (1) Lead exposure: Status: Acute (2) History of thrombocytopenia: Status: Acute Comment: First (3) Rh negative status during : Status: Acute Comment: Rhogam @ 28wks & PRN; to call with any bleeding/spotting (4) History of miscarriage, currently : Status: Acute Comment: 2 Miscarriages in 2020 (5) Supervision of high-risk : Status: Acute Comment: PRR, ; RONEY 08/31/24; PC: Renae & Iveth; : Bam (6) : Status: Acute Qualifiers: Weeks of gestation: 16 weeks Qualified Code(s): Z3A.16 - 16 weeks gestation of Comment: Discussed genetic/carrier testing - undecided; prior carrier testing done (7) 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; 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 (8) 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; 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 Orders: Orders POC Urinalysis 2 Dip (Clinic) Today 03/23/25 1059 <Electronically signed by Serenity Madden DO> Date _ Serenity Luna DO Regaladoigndesirae Signature: Date (if applicable) CC: ~ [facility] Work Phone: Progress note No data available for this section [facility] Progress note Author Aspen Morrison [facility] Note Date/Time May 19, 2025 1:09pm [facility] [address], [address] [place] [address] OFFICE VISIT Date of Service: 05/19/25 MR#: [id number] Acct: [id number] Name: HEATHER ANGEL Rep #: [id number] : 1995 Provider: CAPO Morrison Age/Sex: 30/F Location: [facility] [place] Status: Signed Intake Vital Signs 03/23/25 10:38 04/20/25 10:09 05/19/25 12:53 Height 5 ft 3 in 5 ft 3 in 5 ft 3 in Weight: 159 lb 5 oz BMI 28.2 BP 114/67 Intake Visit Reasons: 25 wk ob Chief Complaint: 25 Week OB Training Generalist Required: No Is patient in pain?: No Allergies No Known Allergies Allergy (Verified 05/19/25 12:57) Medications ?Medication ?Instructions ?Recorded ?Confirmed ?Type PNV no.151-iron 27 mg-folic 800 cap PO 09/10/22 History mcg-omega3 260 at-xjy-dep-fish capsule omega-3 fatty acids 600 mg PO DAILY 04/10/23 History Last Menstrual Period: 11/24/24 Zika: Zika virus screening: Negative : Yes PFSH PFSH Medical History Galactosemia Biotinidase deficiency Abnormal biopsy result Family History Grandfather Cancer unknown type Grandmother Hypertension Ovarian cancer Paternal Grandfather Hypertension Grandmother Asthma Father Hypertension Social History adopted: No household members: spouse and children number of children: 2 current occupation: [employer] current occupational exposures/hazards: No pets and animals: Yes pets and animals: dog(s) and farm animals history of recent travel: No sexually active: Yes Smoking Status: Never smoker second hand exposure: No alcohol intake: never substance use type: does not use well-balanced diet: daily or most days caffeine: No eating out: rarely or never during the past year weight has: decreased > 10 lbs what type of physical activity do you participate in: walking frequency: 1-2 times per week duration: 15-30 minutes/day gabriela/restoration: Advent seatbelt use: always do you feel safe at home: Yes 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 Date Name GA/Weeks Outcome Route Bth Weight Infant Gen Labor Lgth Anesthesia Del Locatn Provider FOB Unknown 11/2020 spontaneous Unknown 12/2020 spontaneous 10/02/21 Renae 40 live - full term 9lbs 11oz Male [address] [facility] SM Bam 04/28/23 Iveth Alba 38 live - full term [id number] Female epidural [facility] Rayna Knight Bam Delivery Date: 10/02/21 Last Updated by: Chacha Farmer SROM 40w SM Ismaelsindi Delivery Date: 04/28/23 Last Updated by: Sharda James IOL HPI 25 wk ob Details: HEATHER ANGEL is a 30 year old who presents for routine OB visit. OB Visit RONEY Calculator Estimated Delivery Date Method Current WG Current Estimate 09/01/25 Ultrasound #1 25w 0d Other Estimates 08/31/25 LMP (Certain) 25w 1d Expected Delivery Route/Plan Labor Preferences- CB/BF classes: no labor support person: Bam labor intervention preferences: [] pain management options preferred: epidural cut cord/dad catch: cord : yes PP control planned: discussed discussed possible routes of delivery and associated risks: [] special requests: [] Specific Issue/Plans Covid status: [] Flu vaccine: [] Tdap vaccine: [] Rhogam: [] LARC form signed: yes Problem list reviewed and updated with the most current plan of care details and appropriate orders placed. Relevant counseling for the gestational age provided. Continue routine care and follow up unless otherwise noted in visit notes/problem list details Initial Weight: 142 lb Date -?-?-?-?-?-?-?-?-?-?-?-?- EGA Weight BP Urine Prot -?-?-?-?-?-?-?-?-?-?-?-?- Glucose FHR FuHt Pres Dilation -?-?-?-?-?-?-?-?-?-?-?-?- Effaced St Visit Note 01/27/25 -?-?-?-?-?-?-?-?-?-?-?-?- 9w 0d 142 lb 6 oz (+6 oz) 115/75 -?-?-?-?-?-?-?-?-?-?-?-?- 169 -?-?-?-?-?-?-?-?-?-?-?-?- KW- CRL cons wit h dates. denies nipt. lead exposure and requesting lead testing-added to NOB labs 02/24/25 -?-?-?-?-?-?-?-?-?-?-?-?- 13w 0d 144 lb (+2 lb) 119/75 Negative -?-?-?-?-?-?-?-?-?-?-?-?- Negative 150 -?-?-?-?-?-?-?-?-?-?-?-?- SM- no vb crampi ng 03/23/25 -?-?-?-?-?-?-?-?-?-?-?-?- 16w 6d 147 lb 8 oz (+5 lb 8 oz) 123/70 Negative -?-?-?-?-?-?-?-?-?-?-?-?- Negative 147 -?-?-?-?-?-?-?-?-?-?-?-?- JV- starting to feel some fluttering. no cramping or bleeding. 04/20/25 -?-?-?-?-?-?-?-?-?-?-?-?- 20w 6d 152 lb 6 oz (+10 lb 6 oz) 120/77 Negative -?-?-?-?-?-?-?-?-?-?-?-?- Negative 145 -?-?-?-?-?-?-?-?-?-?-?-?- MH-NO VB. Ashu silverio good movement. Nl anatomy US 05/19/25 -?-?-?-?-?-?-?-?-?-?-?-?- 25w 0d 159 lb 5 oz (+17 lb 5 oz) 114/67 -?-?-?-?-?-?-?-?-?-?-?-?- 141 25 -?-?-?-?-?-?-?-?-?-?-?-?- MH-No Vb, LOF. G ood FM. Larc ACOG First Trimester First Trimester: Desire for , Alcohol, Tobacco Cessation, Illicit/Recreational Drug/Substance Use, Intimate Partner Violence, Barriers to care, Unstable Housing, Communication Barriers, Environmental/Work Hazards, Anticipated Course of Care, Toxoplasmosis Precations, Use of Any medications, Sexual activity, Exercise, Dental Care, Sauna/Hot tub use, Seat Belt use, Childbirth classes/Hospital facilities, , Travel, Indications for Ultrasound and Screening for Aneuploidy Second Trimester Second Trimester: Signs and Symptoms of Labor, Selecting a care provider, Reproductive Life Planning & Contreception, Care Planning, Depression/Anxiety and Intimate Partner Violence; Discussed Tobacco Cessation Third Trimester Third Trimester: Pain Management Plans, Labor support person(s), Immediate Larc, Movement Monitoring, Signs and Symptoms of Preeclampsia, Infant Feeding Yes , Education, Family Medical Leave or Disability Forms and Intimate Partner Violence; Discussed Depression ROS Const Reports system reviewed and no additional complaints, except as documented GI Denies abdominal pain, Denies nausea and Denies vomiting Exam Const General: cooperative Nutritional Appearance: well nourished GI Palpation: soft, nontender and other (gravid) Coding Level of Care Code OB Routine Diagnoses Supervision of high risk in second trimester O09.92 Trimester: second trimester 25 weeks gestation of Z3A.25 Weeks of gestation: 25 weeks History of miscarriage, currently O09.299 Rh negative status during in second trimester O26.892; Z67.91 Trimester: second trimester History of thrombocytopenia Z86.2 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 Assessment and Plan Assessment and Plan (1) Supervision of high-risk : Status: Acute Qualifiers: Trimester: second trimester Qualified Code(s): O09.92 - Supervision of high risk , unspecified, second trimester Comment: PRR, ; RONEY 08/31/24; PC: Renae & Iveth; : Bam (2) : Status: Acute Qualifiers: Weeks of gestation: 25 weeks Qualified Code(s): Z3A.25 - 25 weeks gestation of Comment: Discussed genetic/carrier testing - undecided; prior carrier testing done, nl anatomy (3) History of miscarriage, currently : Status: Acute Comment: 2 Miscarriages in 2020 (4) Rh negative status during : Status: Acute Qualifiers: Trimester: second trimester Qualified Code(s): O26.892 - Other specified related conditions, second trimester; Z67.91 - Unspecified blood type, Rh negative Comment: Rhogam @ 28wks & PRN; to call with any bleeding/spotting (5) History of thrombocytopenia: Status: Acute Comment: First (6) Lead exposure: Status: Acute (7) 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; 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 (8) 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; 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 Orders: Orders POC Urinalysis 2 Dip (Clinic) Today CBC W/Diff, Automated Today O09.92 - Supervision of high risk , unspecified, second trimester Glucose Challenge Gest 1H 50g Today O09.92 - Supervision of high risk , unspecified, second trimester, Z13.1 - Encounter for screening for diabetes mellitus Type & Screen Today O09.92 - Supervision of high risk , unspecified, second trimester HIV Today O09.92 - Supervision of high risk , unspecified, second trimester Syphilis Antibodies Today O09.92 - Supervision of high risk , unspecified, second trimester Plan problem list reviewed and updated for most current plan of care and appropriate orders placed. Relevant counseling for the gestational age appropriate provided and ACOG education checklist updated. Continue routine care and follow up. 05/19/25 1312 <Electronically signed by Aspen palmer DEAL ARCHITECT DEAL ARCHITECT-C> Date _ Aspen Morrison NP DEAL ARCHITECT-C Cosigner Signature: Date (if applicable) CC: ~ [facility] Work Phone: Reason for referral (narrative)No reason for referral information availableLos Angeles County [facility] Work Phone: Chief Complaint and Reason for Visit Chief Complaint 30 WK OB 32 WK OB GROWTH 34 WK OB GROWTH 36 WK OB 37 WK OB 38 WK OB 39 WK OB LABOR LABOR LABOR LABOR 6wk pp, declined IUD Reason for Visit Carrier of genetic d efect COVID-19 affecting , antepartum Gestational thrombocytopenia Need for rhogam due to Rh negative mother Need for Tdap vaccination Recurrent loss Supervision of high risk , antepartum Carrier of genetic defect COVID-19 affecting , antepartum Gestational thrombocytopenia Need for rhogam due to Rh negative mother Need for Tdap vaccination Recurrent loss Supervision of high risk , antepartum Carrier of genetic defect COVID-19 affecting , antepartum Gestational thrombocytopenia Need for rhogam due to Rh negative mother Recurrent loss Supervision of high risk , antepartum Carrier of genetic defect COVID-19 affecting , antepartum Gestational thrombocytopenia Need for rhogam due to Rh negative mother Recurrent loss Supervision of high risk , antepartum Carrier of genetic defect COVID-19 affecting , antepartum Gestational thrombocytopenia Need for rhogam due to Rh negative mother Recurrent loss Supervision of high risk , antepartum Carrier of genetic defect COVID-19 affecting , antepartum Gestational thrombocytopenia Need for rhogam due to Rh negative mother Recurrent loss Supervision of high risk , antepartum Carrier of genetic defect COVID-19 affecting , antepartum Gestational thrombocytopenia Need for rhogam due to Rh negative mother Recurrent loss Supervision of high risk , antepartum Active labor at term Carrier of genetic defect COVID-19 affecting , antepartum Gestational thrombocytopenia Need for rhogam due to Rh negative mother Recurrent loss SROM (spontaneous rupture of membranes) Supervision of high risk , antepartum Vaginal delivery Chief Complaint FEVER/BODY ACHES/CON CERN FOR URINARY ISSUES Urinary tract infection Reason for Visit Urinary tract infection with hematuria Urinary tract infection with hematuria Chief Complaint FEVER/BODY ACHES/CON CERN FOR URINARY ISSUES Urinary tract infection NOB LMP 07/24 Reason for Visit Urinary tract infection with hematuria Urinary tract infection with hematuria History of miscarriage, currently Rh negative state in antepartum period Supervision of high risk , antepartum Urinary tract infection with hematuria Chief Complaint FEVER/BODY ACHES/CON CERN FOR URINARY ISSUES Urinary tract infection NOB LMP 07/24 est ob 8w3d U/S ROOM Reason for Visit Urinary tract infection with hematuria Urinary tract infection with hematuria History of miscarriage, currently Rh negative state in antepartum period Supervision of high risk , antepartum Urinary tract infection with hematuria History of miscarriage, currently Rh negative state in antepartum period Supervision of high risk , antepartum Urinary tract infection with hematuria Chief Complaint est ob 8w3d U/S ROOM 12 WK OB 17 WK OB 21 WK OB 24 wk ob PLACENTAL ABNORMALITY Reason for Visit History of miscarria ge, currently Rh negative state in antepartum period Supervision of high risk , antepartum Urinary tract infection with hematuria History of miscarriage, currently Rh negative state in antepartum period Supervision of high risk , antepartum Urinary tract infection with hematuria History of miscarriage, currently Rh negative state in antepartum period Supervision of high risk , antepartum Urinary tract infection with hematuria History of miscarriage, currently Placental abnormality Rh negative state in antepartum period Supervision of high risk , antepartum Urinary tract infection with hematuria History of miscarriage, currently Placental abnormality Rh negative state in antepartum period Supervision of high risk , antepartum Urinary tract infection with hematuria Chief Complaint 12 WK OB 17 WK OB 21 WK OB 24 wk ob PLACENTAL ABNORMALITY PLACENTAL ABNORMALITY 28 WK OB/GLUCOSE Reason for Visit History of miscarria ge, currently Rh negative state in antepartum period Supervision of high risk , antepartum Urinary tract infection with hematuria History of miscarriage, currently Rh negative state in antepartum period Supervision of high risk , antepartum Urinary tract infection with hematuria History of miscarriage, currently Placental abnormality Rh negative state in antepartum period Supervision of high risk , antepartum Urinary tract infection with hematuria History of miscarriage, currently Placental abnormality Rh negative state in antepartum period Supervision of high risk , antepartum Urinary tract infection with hematuria Gestational thrombocytopenia History of miscarriage, currently Placental abnormality Rh negative state in antepartum period Supervision of high risk , antepartum Urinary tract infection with hematuria Chief Complaint 17 WK OB 21 WK OB 24 wk ob PLACENTAL ABNORMALITY PLACENTAL ABNORMALITY 28 WK OB/GLUCOSE 30 WK OB PLACENTAL ABNORMALITY 32 WK OB Reason for Visit History of miscarria ge, currently Rh negative state in antepartum period Supervision of high risk , antepartum Urinary tract infection with hematuria History of miscarriage, currently Placental abnormality Rh negative state in antepartum period Supervision of high risk , antepartum Urinary tract infection with hematuria History of miscarriage, currently Placental abnormality Rh negative state in antepartum period Supervision of high risk , antepartum Urinary tract infection with hematuria Gestational thrombocytopenia History of miscarriage, currently Placental abnormality Rh negative state in antepartum period Supervision of high risk , antepartum Urinary tract infection with hematuria Gestational thrombocytopenia History of miscarriage, currently Placental abnormality Rh negative state in antepartum period Supervision of high risk , antepartum Urinary tract infection with hematuria Gestational thrombocytopenia History of miscarriage, currently Placental abnormality Rh negative state in antepartum period Supervision of high risk , antepartum Chief Complaint 21 WK OB 24 wk ob PLACENTAL ABNORMALITY PLACENTAL ABNORMALITY 28 WK OB/GLUCOSE 30 WK OB PLACENTAL ABNORMALITY 32 WK OB 34 WK OB RULE OUT LABOR RULE OUT LABOR Reason for Visit History of miscarria ge, currently Placental abnormality Rh negative state in antepartum period Supervision of high risk , antepartum Urinary tract infection with hematuria History of miscarriage, currently Placental abnormality Rh negative state in antepartum period Supervision of high risk , antepartum Urinary tract infection with hematuria Gestational thrombocytopenia History of miscarriage, currently Placental abnormality Rh negative state in antepartum period Supervision of high risk , antepartum Urinary tract infection with hematuria Gestational thrombocytopenia History of miscarriage, currently Placental abnormality Rh negative state in antepartum period Supervision of high risk , antepartum Urinary tract infection with hematuria Gestational thrombocytopenia History of miscarriage, currently Placental abnormality Rh negative state in antepartum period Supervision of high risk , antepartum Gestational thrombocytopenia History of miscarriage, currently Placental abnormality contractions Rh negative state in antepartum period Supervision of high risk , antepartum Chief Complaint 21 WK OB 24 wk ob PLACENTAL ABNORMALITY PLACENTAL ABNORMALITY 28 WK OB/GLUCOSE 30 WK OB PLACENTAL ABNORMALITY 32 WK OB 34 WK OB RULE OUT LABOR RULE OUT LABOR PLACENTAL ABNORMALITY /EORDERS OR LAB 36 WK OB Reason for Visit History of miscarria ge, currently Placental abnormality Rh negative state in antepartum period Supervision of high risk , antepartum Urinary tract infection with hematuria History of miscarriage, currently Placental abnormality Rh negative state in antepartum period Supervision of high risk , antepartum Urinary tract infection with hematuria Gestational thrombocytopenia History of miscarriage, currently Placental abnormality Rh negative state in antepartum period Supervision of high risk , antepartum Urinary tract infection with hematuria Gestational thrombocytopenia History of miscarriage, currently Placental abnormality Rh negative state in antepartum period Supervision of high risk , antepartum Urinary tract infection with hematuria Gestational thrombocytopenia History of miscarriage, currently Placental abnormality Rh negative state in antepartum period Supervision of high risk , antepartum Gestational thrombocytopenia History of miscarriage, currently Placental abnormality Rh negative state in antepartum period Supervision of high risk , antepartum Urinary tract infection with hematuria contractions Gestational thrombocytopenia History of miscarriage, currently Placental abnormality Rh negative state in antepartum period Supervision of high risk , antepartum contractions Gestational thrombocytopenia History of miscarriage, currently Placental abnormality Rh negative state in antepartum period Supervision of high risk , antepartum Urinary tract infection with hematuria Chief Complaint 24 wk ob PLACENTAL ABNORMALITY PLACENTAL ABNORMALITY 28 WK OB/GLUCOSE 30 WK OB PLACENTAL ABNORMALITY 32 WK OB 34 WK OB RULE OUT LABOR RULE OUT LABOR PLACENTAL ABNORMALITY /EORDERS OR LAB 36 WK OB 37 WK OB VAGINAL DELIVERY R/O LABORR VAGINAL DELIVERY Reason for Visit History of miscarria ge, currently Placental abnormality Supervision of high risk , antepartum Urinary tract infection with hematuria Gestational thrombocytopenia History of miscarriage, currently Placental abnormality Supervision of high risk , antepartum Urinary tract infection with hematuria Gestational thrombocytopenia History of miscarriage, currently Placental abnormality Supervision of high risk , antepartum Urinary tract infection with hematuria Gestational thrombocytopenia History of miscarriage, currently Placental abnormality Supervision of high risk , antepartum Gestational thrombocytopenia History of miscarriage, currently Placental abnormality contractions Supervision of high risk , antepartum Urinary tract infection with hematuria Gestational thrombocytopenia History of miscarriage, currently Placental abnormality contractions Supervision of high risk , antepartum Gestational thrombocytopenia History of miscarriage, currently Placental abnormality Supervision of high risk , antepartum Urinary tract infection with hematuria Gestational thrombocytopenia History of miscarriage, currently Placental abnormality Supervision of high risk , antepartum Urinary tract infection with hematuria Gestational thrombocytopenia Active labor History of miscarriage, currently Placental abnormality Supervision of high risk , antepartum Urinary tract infection with hematuria Chief Complaint Admit Date Amb Documentation January 14, 2025 9:22a m NOB LMP 11/24January 27, 2025 10:17 am Reason for Visit Admit Date Biotinidase deficiency January 27, 2025 10 :17am Galactosemia January 27, 2025 10:17 am History of miscarriage, currently pregna nt January 27, 2025 10:17am History of thrombocytopenia January 27 10:17am Lead exposure January 27, 2025 10:17 am January 27, 2025 10:17 am Rh negative status during January 27, 2025 10:17am Supervision of high-risk January 27, 2025 10:17am Chief Complaint Admit Date Amb Documentation January 14, 2025 9:22a m NOB LMP 11/24January 27, 2025 10:17 am 13wk OB February 24, 2025 3:17p m Reason for Visit Admit Date Biotinidase deficiency January 27, 2025 10 :17am Galactosemia January 27, 2025 10:17 am History of miscarriage, currently pregna nt January 27, 2025 10:17am History of thrombocytopenia January 27 10:17am Lead exposure January 27, 2025 10:17 am January 27, 2025 10:17 am Rh negative status during January 27, 2025 10:17am Supervision of high-risk January 27, 2025 10:17am 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, 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 Galactosemia February 24, 2025 3:17p m History of miscarriage, currently pregna nt February 24, 2025 3:17pm History of thrombocytopenia February 24 3:17pm Lead exposure February 24, 2025 3:17p m February 24, 2025 3:17p m Rh negative status during February 24, 2025 3:17pm Supervision of high-risk February 24, 2025 3:17pm Chief Complaint Admit Date Amb Documentation January 14, 2025 9:22a m NOB LMP 4/2 January 27, 2025 10:17 am 13wk OB February 24, 2025 3:17p m 17wk ob March 23, 2025 10:2 7am Reason for Visit Admit Date Biotinidase deficiency January 27, 2025 10 :17am Galactosemia January 27, 2025 10:17 am History of miscarriage, currently pregna nt January 27, 2025 10:17am History of thrombocytopenia January 27 10:17am Lead exposure January 27, 2025 10:17 am January 27, 2025 10:17 am Rh negative status during January 27, 2025 10:17am Supervision of high-risk January 27, 2025 10:17am 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, 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 Galactosemia February 24, 2025 3:17p m History of miscarriage, currently pregna nt February 24, 2025 3:17pm History of thrombocytopenia February 24 3:17pm Lead exposure February 24, 2025 3:17p m February 24, 2025 3:17p m Rh negative status during February 24, 2025 3:17pm Supervision of high-risk February 24, 2025 3:17pm Biotinidase deficiency March 23, 2025 1 0:27am Galactosemia March 23, 2025 10:2 7am History of miscarriage, currently pregna nt March 23, 2025 10:27am History of thrombocytopenia March 23, 2 025 10:27am Lead exposure March 23, 2025 10:2 7am March 23, 2025 10:2 7am Rh negative status during March 23, 2025 10:27am Supervision of high-risk March 23, 2025 10:27am Chief Complaint Admit Date Amb Documentation January 14, 2025 9:22a m NOB LMP /2 January 27, 2025 10:17 am 13wk OB February 24, 2025 3:17p m 17wk ob March 23, 2025 10:2 7am ANATOMY 18-20 WEEKS April 14, 2025 12 :16pm 21wk ob April 20, 2025 9: 59am Reason for Visit Admit Date Biotinidase deficiency January 27, 2025 10 :17am Galactosemia January 27, 2025 10:17 am History of miscarriage, currently pregna nt January 27, 2025 10:17am History of thrombocytopenia January 27 10:17am Lead exposure January 27, 2025 10:17 am January 27, 2025 10:17 am Rh negative status during January 27, 2025 10:17am Supervision of high-risk January 27, 2025 10:17am 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, 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 Galactosemia February 24, 2025 3:17p m History of miscarriage, currently pregna nt February 24, 2025 3:17pm History of thrombocytopenia February 24 3:17pm Lead exposure February 24, 2025 3:17p m February 24, 2025 3:17p m Rh negative status during February 24, 2025 3:17pm Supervision of high-risk February 24, 2025 3:17pm Biotinidase deficiency March 23, 2025 1 0:27am Galactosemia March 23, 2025 10:2 7am History of miscarriage, currently pregna nt March 23, 2025 10:27am History of thrombocytopenia March 23, 2 025 10:27am Lead exposure March 23, 2025 10:2 7am March 23, 2025 10:2 7am Rh negative status during March 23, 2025 10:27am Supervision of high-risk March 23, 2025 10:27am Biotinidase deficiency April 20, 2025 9:59am Galactosemia April 20, 2025 9: 59am History of miscarriage, currently pregna nt April 20, 2025 9:59am History of thrombocytopenia April 20, 2025 9:59am Lead exposure April 20, 2025 9: 59am April 20, 2025 9: 59am Rh negative status during Augu st 2024 9:59am Supervision of high-risk Augus t 2024 9:59am Chief Complaint Admit Date NOB LMP 4/2 January 27, 2025 10:17 am 13wk OB February 24, 2025 3:17p m 17wk ob March 23, 2025 10:2 7am ANATOMY 18-20 WEEKS April 14, 2025 12 :16pm 21wk ob April 20, 2025 9: 59am 25 wk ob May 19, 2025 12:50pm Reason for Visit Admit Date Biotinidase deficiency January 27, 2025 10 :17am Galactosemia January 27, 2025 10:17 am History of miscarriage, currently pregna nt January 27, 2025 10:17am History of thrombocytopenia January 27 10:17am Lead exposure January 27, 2025 10:17 am January 27, 2025 10:17 am Rh negative status during January 27, 2025 10:17am Supervision of high-risk January 27, 2025 10:17am 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, 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 Galactosemia February 24, 2025 3:17p m History of miscarriage, currently pregna nt February 24, 2025 3:17pm History of thrombocytopenia February 24 3:17pm Lead exposure February 24, 2025 3:17p m February 24, 2025 3:17p m Rh negative status during February 24, 2025 3:17pm Supervision of high-risk February 24, 2025 3:17pm Biotinidase deficiency March 23, 2025 1 0:27am Galactosemia March 23, 2025 10:2 7am History of miscarriage, currently pregna nt March 23, 2025 10:27am History of thrombocytopenia March 23, 025 10:27am Lead exposure March 23, 2025 10:2 7am March 23, 2025 10:2 7am Rh negative status during March 23, 2025 10:27am Supervision of high-risk March 23, 2025 10:27am Biotinidase deficiency April 20, 2025 9:59am Galactosemia April 20, 2025 9: 59am History of miscarriage, currently pregna nt April 20, 2025 9:59am History of thrombocytopenia April 20, 2025 9:59am Lead exposure April 20, 2025 9: 59am April 20, 2025 9: 59am Rh negative status during Augu st 2024 9:59am Supervision of high-risk Augus t 2024 9:59am Biotinidase deficiency May 19, 2 025 12:50pm Galactosemia May 19, 2025 12:50pm History of miscarriage, currently pregna nt May 19, 2025 12:50pm History of thrombocytopenia May 192024 12:50pm Lead exposure May 19, 2025 12:50pm May 19, 2025 12:50pm Rh negative status during Apr 12:50pm Supervision of high-risk 2024 12:50pm Family History Relationship Condition Age at Onset Recorded Date/T evette grandfather Malignant neoplasm Unknown grandmother Hypertension Unknown grandfather Hypertension Unknown grandmother Asthma Unknown Relationship Condition Age at Onset Recorded Date/T evette grandfather Malignant neoplasm Unknown grandmother Hypertension Unknown Malignant neoplasm of ovary Unknown grandfather Hypertension Unknown grandmother Asthma Unknown Relationship Condition Age at Onset Recorded Date/T evette grandfather Malignant neoplasm Unknown grandmother Hypertension Unknown Malignant neoplasm of ovary Unknown grandfather Hypertension Unknown grandmother Asthma Unknown father Hypertension Unknown Advance Directives Advance Directive Response Recorded Date/ Time Living Will No October 01 11:09pm Power of Palliative Care Specialist No October 01, 2021 11:09pm Advance Directive Response Recorded Date/ Time Living Will No October 01 10:09pm Power of Palliative Care Specialist No October 01, 2021 10:09pm Advance Directive Response Recorded Date/ Time Living Will No April 28, 2:42am Power of Palliative Care Specialist No April 28, 2023 2:42am Summary Purpose Additional Source Comments Goals (unrecognized section and content) Type Care Experience svdLabor Preferences -CB/BF classes: discussedlabor support person: Jaredlabor intervention preferences: no specificpain management options preferred: epiduralcut cord/dad catch: yesbreastfeeding: yesPP control planned: []discussed possible routes of delivery and associated risks: []special requests: [] Care Experience svdLabor Preferences -CB/BF classes: nolabor support person: Jaredlabor intervention preferences: []pain management options preferred: epiduralcut cord/dad catch: cordbreastfeeding: yesPP control planned: discusseddiscussed possible routes of delivery and associated risks: []special requests: [] Care Experience Labor Preferences-CB /BF classes: nolabor support person: Jaredlabor intervention preferences: []pain management options preferred: epiduralcut cord/dad catch: cordbreastfeeding: yesPP control planned: discusseddiscussed possible routes of delivery and associated risks: []special requests: [] Source Comments (unrecognize d section and content) In the event this informatio n is protected by the Federal Confidentiality of Alcohol and Drug Abuse Patient Records regulations: The Federal rules restrict any use of the information to criminally investigate or prosecute any alcohol or drug abuse patient.[facility] the event this information is protected by the Federal Confidentiality of Alcohol and Drug Abuse Patient Records regulations: The Federal rules restrict any use of the information to criminally investigate or prosecute any alcohol or drug abuse patient.[facility] Reason for Visit (unrecogniz ed section and content) Reason Comments UTI Reason Comments Rash all over x 1 day Care Teams (unrecognized sec tion and content) Pc Network Technician Relationship Specialty Start Date End Date Ada Garcia [address] [facility] [address] [place] [address] PCP - General Family Practice 05/14/19 Team Status: Active Member Role Status Dates Dominick Zaldivar Family Provider Active Ada Garcia MD Primary Care Provider Active Team Status: Inactive Member Role Status Dates Ada Garcia MD Primary Care Provider, Referring Pr ovider Active HOWARD Milton Attending Provider Active Team Status: Inactive Member Role Status Dates Ada Garcia MD Primary Care Provider, Referring Pr ovider Active Dr. Ana Wynne MD Attending Provider Active Team Status: Inactive Member Role Status Dates Ada Garcia MD Primary Care Provider Active HOWARD Milton Attending Provider Active Team Status: Active Member Role Status Dates Ada Hinojosaiff , MD Primary Care Provider Active Dr. Ana Wynne MD Attending Provider Active Team Status: Inactive Member Role Status Sienna Garcia MD Primary Care Provider Active Dr. Ana Wynne MD Attending Provider Active Team Status: Active Member Role Status Sienna Garcia MD Primary Care Provider Active Dr. Ana Wynne MD Attending Provider, Referr ing Provider Active Team Status: Inactive Member Role Status Sienna Garcia MD Primary Care Provider Active Dr. Ana Wynne MD Attending Provider, Referr ing Provider Active Team Status: Active Member Role Status Sienna Dominick David MessinaZen Family Provider Active Dr. Ada Garcia MD Primary Care Provider Active Team Status: Inactive Member Role Status Sienna THAPA MD Primary Care Provider, Referring Provider Active Dr. Ana Wynne MD Attending Provider Active Team Status: Inactive Member Role Status Sienna THAPA MD Primary Care Provider, Referring Provider Active Dr. Serenity Luna DO Attending Provider Activ e Team Status: Inactive Member Role Status Sienna THAPA MD Primary Care Provider, Referring Provider Active Aspen Morrison DEAL ARCHITECT, DEAL ARCHITECT-C Attending Provider Active Team Status: Inactive Member Role Status Sienna THAPA MD Primary Care Provider, Referring Provider Active Jeanine Knight CNM Attending Provider Active Team Status: Inactive Member Role Status Sienna THAPA MD Primary Care Provider Active Dr. Ana Wynne MD Attending Provider, Referr ing Provider Active Team Status: Inactive Member Role Status Sienna Knight CNM Attending Provider, Referring Pro vider Active Dr. Ada Garcia MD Primary Care Provider Active Team Status: Inactive Member Role Status Sienna THAPA MD Referring Provider Active Dr. Serenity Luna DO Attending Provider Activ e Dr. Ada Garcia MD Primary Care Provider Active Team Status: Inactive Member Role Status Sienna THAPA MD Referring Provider Active Jeanine Knight CNM Attending Provider Active Dr. Ada Garcia MD Primary Care Provider Active Team Status: Inactive Member Role Status Sienna THAPA MD Referring Provider Active Aspen Morrison DEAL ARCHITECT, DEAL ARCHITECT-C Attending Provider Active Dr. Ada Garcia MD Primary Care Provider Active Team Status: Active Member Role Status Dates Jeanine Knight CNM Attending Provider, Referring Pro vider Active Dr. Ada Garcia MD Primary Care Provider Active Team Status: Inactive Member Role Status Dates Dr. Ada Garcia MD Primary Care Provider Active Aspen Morrison DEAL ARCHITECT, DEAL ARCHITECT-C Attending Provider, Referring Provider Active Team Status: Inactive Member Role Status Dates Ada THAPA MD Referring Provider Active Dr. Ana Wynne MD Attending Provider Active Dr. Ada Garcia MD Primary Care Provider Active Team Status: Active Member Role Status Dates Dr. Ada Garcia MD Primary Care Provider Active Jeanine Knight CNM Attending Provider, Referring Provider, Other Provider Active Team Status: Inactive Member Role Status Dates Dr. Ada Garcia MD Primary Care Provider Active Jeanine Knight CNM Attending Provider, Referring Pro vider Active Team Status: Inactive Member Role Status Dates Dr. Ana Wynne MD Attending Provider Active Dr. Ada Garcia MD Primary Care Provider, Referrin g Provider Active Team Status: Inactive Member Role Status Dates Jeanine Knight CNM Attending Provider, Referring Pro vider Active Dr. Ada Garcia MD Primary Care Provider Active Dr. Ana Wynne MD Other Provider Active Team Status: Inactive Member Role Status Dates Dr. Ada Garcia MD Primary Care Provider, Referrin g Provider Active Jeanine Knight CNM Attending Provider Active Team Status: Active Member Role Status Dates Dr. Ada Garcia MD Primary Care Provider Active Jeanine Knight CNM Admit Provider, Att ending Provider, Other Provider Active Team Status: Active Member Role Status Dates Dr. Ada Garcia MD Primary Care Provider Active Jeanine Knight CNM Admit Provider, Other Provider Ac tive Dr. Ana Wynne MD Attending Provider Active Team Status: Inactive Member Role Status Dates Dr. Ada Garcia MD Primary Care Provider Active Jeanine Knight CNM Admit Provider, Attending Provide r Active Pc Network Technician Relationship Specialty Start Date End Date Ada Garcia [address] [place] [address] PCP - General Family Medicine 05/14/19 Team Status: Active Member Role Status Dates Dr. Ada Garcia MD Primary Care Provider Active Start: January 14, 2025 [place] Farias RN Attending Provider Active St art: January 14, 2025 Team Status: Inactive Member Role Status Dates Dr. Ada Garcia MD Primary Care Provider Active Start: January 27, 2025 End: January 27, 2025 Dr. Ada Garcia MD Referring Provider Active Start: January 27, 2025 End: January 27, 2025 Jeanine Knight CNM Attending Provider Active S tart: January 27, 2025 End: January 27, 2025 Team Status: Active Member Role Status Dates Dr. Ada Garcia MD Primary Care Provider Active Start: January 27, 2025 Jeanine Knight CNM Attending Provider Active S tart: January 27, 2025 Jeanine Knight CNM Referring Provider Active S tart: January 27, 2025 Team Status: Inactive Member Role Status Dates Dr. Ada Garcia MD Primary Care Provider Active Start: January 27, 2025 End: January 27, 2025 Jeanine Knight CNM Attending Provider Active S tart: January 27, 2025 End: January 27, 2025 Jeanine Knight CNM Referring Provider Active S tart: January 27, 2025 End: January 27, 2025 Team Status: Active Member Role/Relationship Status Dates Dominick Zaldivar Family Provider Active Dr. Ada Garcia MD Primary Care Provider Active Team Status: Active Member Role/Relationship Status Dates Dr. Ada Garcia MD Primary Care Provider Active Start: January 14, 2025 Kiah Farias RN Attending Provider Active St art: January 14, 2025 Team Status: Inactive Member Role/Relationship Status Dates Dr. Ada Garcia MD Primary Care Provider Active Start: January 27, 2025 End: January 27, 2025 Dr. Ada Garcia MD Referring Provider Active Start: January 27, 2025 End: January 27, 2025 Jeanine Knight CNM Attending Provider Active S tart: January 27, 2025 End: January 27, 2025 Team Status: Inactive Member Role/Relationship Status Dates Dr. Ada Garcia MD Primary Care Provider Active Start: January 27, 2025 End: January 27, 2025 Jeanine Knight CNM Attending Provider Active S tart: January 27, 2025 End: January 27, 2025 Jeanine Knight CNM Referring Provider Active S tart: January 27, 2025 End: January 27, 2025 Team Status: Inactive Member Role/Relationship Status Dates Dr. Ada Garcia MD Primary Care Provider Active Start: February 24, 2025 End: February 24, 2025 Dr. dAa Garcia MD Referring Provider Active Start: February 24, 2025 End: February 24, 2025 Dr. Ana Wynne MD Attending Provider Active Start: February 24, 2025 End: February 24, 2025 Team Status: Inactive Member Role/Relationship Status Dates Dr. Ada Garcia MD Primary Care Provider Active Start: March 23, 2025 End: March 23, 2025 Dr. Ada Garcia MD Referring Provider Active Start: March 23, 2025 End: March 23, 2025 Dr. Serenity Luna DO Attending Provider Activ e Start: March 23, 2025 End: March 23, 2025 Team Status: Active Member Role/Relationship Status Dates Dr. Ada Garcia MD Primary Care Provider Active Team Status: Active Member Role/Relationship Status Dates Dr. Ada Garcia MD Primary Care Provider Active Start: April 14, 2025 Jeanine Knight CNM Attending Provider Active S tart: April 14, 2025 Jeanine Knight CNM Referring Provider Active S tart: April 14, 2025 Team Status: Inactive Member Role/Relationship Status Dates Dr. Ada Garcia MD Primary Care Provider Active Start: April 20, 2025 End: April 20, 2025 Dr. Ada Garcia MD Referring Provider Active Start: April 20, 2025 End: April 20, 2025 Aspen Morrison DEAL ARCHITECT, DEAL ARCHITECT-C Attending Provider Active Start: April 20, 2025 End: April 20, 2025 Team Status: Inactive Member Role/Relationship Status Dates Dr. Ada Garcia MD Primary Care Provider Active Start: April 14, 2025 End: April 14, 2025 Jeanine Knight CNM Attending Provider Active S tart: April 14, 2025 End: April 14, 2025 Jeanine Knight CNM Referring Provider Active S tart: April 14, 2025 End: April 14, 2025 Team Status: Active Member Role/Relationship Status Dates Dr. Ada Garcia MD Primary care physician Active Team Status: Inactive Member Role/Relationship Status Dates Dr. Ada Garcia MD Primary care physician Active Start: January 27, 2025 End: January 27, 2025 Dr. Ada Garcia MD Referring Provider Active Start: January 27, 2025 End: January 27, 2025 Jeanine Knight CNM Attending physician Active Start: January 27, 2025 End: January 27, 2025 Team Status: Inactive Member Role/Relationship Status Dates Dr. Ada Garcia MD Primary care physician Active Start: January 27, 2025 End: January 27, 2025 Jeanine Knight CNM Attending physician Active Start: January 27, 2025 End: January 27, 2025 Jeanine Knight CNM Referring Provider Active S tart: January 27, 2025 End: January 27, 2025 Team Status: Inactive Member Role/Relationship Status Dates Dr. Ada Garcia MD Primary care physician Active Start: February 24, 2025 End: February 24, 2025 Dr. Ada Garcia MD Referring Provider Active Start: February 24, 2025 End: February 24, 2025 Dr. Ana Wynne MD Attending physician Active Start: February 24, 2025 End: February 24, 2025 Team Status: Inactive Member Role/Relationship Status Dates Dr. Ada Garcia MD Primary care physician Active Start: March 23, 2025 End: March 23, 2025 Dr. Ada Garcia MD Referring Provider Active Start: March 23, 2025 End: March 23, 2025 Dr. Serenity Luna DO Attending physician Acti ve Start: March 23, 2025 End: March 23, 2025 Team Status: Inactive Member Role/Relationship Status Dates Dr. Ada Garcia MD Primary care physician Active Start: April 14, 2025 End: April 14, 2025 Jeanine Knight CNM Attending physician Active Start: April 14, 2025 End: April 14, 2025 Jeanine Knight CNM Referring Provider Active S tart: April 14, 2025 End: April 14, 2025 Team Status: Inactive Member Role/Relationship Status Dates Dr. Ada Garcia MD Primary care physician Active Start: April 20, 2025 End: April 20, 2025 Dr. Ada Garcia MD Referring Provider Active Start: April 20, 2025 End: April 20, 2025 Aspen Morrison NP, DEAL ARCHITECT-C Attending physician Active Start: April 20, 2025 End: April 20, 2025 Team Status: Inactive Member Role/Relationship Status Dates Dr. Ada Garcia MD Primary care physician Active Start: May 19, 2025 End: May 19, 2025 Dr. Ada Garcia MD Referring Provider Active Start: May 19, 2025 End: May 19, 2025 Aspen Morrison NP, NP-C Attending physician Active Start: May 19, 2025 End: May 19, 2025 INFORMATION SOURCE (unrecogn ized section and content) DATE CREATED AUTHOR 01/07/2023 [facility] DATE CREATED AUTHOR AUTHOR'S ORGANIZ ATION 09/16/2024 [facility] DATE CREATED AUTHOR AUTHOR'S ORGANIZ ATION 04/22/2025 [facility] DATE CREATED AUTHOR AUTHOR'S ORGANIZ ATION 05/26/2025 [facility] FOR RECORDS PERTAINING TO PATIENTS WHO ARE OR HAVE BEEN ENROLLED IN A CHEMICAL DEPENDENCY/SUBSTANCEABUSE PROGRAM, SOME INFORMATION MAY BE OMITTED. This clinical summary was aggregated from multiple sources. Caution should be exercised in using it in the provision of clinical care. This summary normalizes information from multiple sources, and as a consequence, information in this document may materially change the coding, format and clinical context of patient data. In addition, data may be omitted in some cases. CLINICAL DECISIONS SHOULD BE BASED ON THE PRIMARY CLINICAL RECORDS. [facility] [employer] [facility]. provides no warranty or guarantee of the accuracy or completeness of information in this document.
== END | disposition home or self-care (01) ==
PROVIDERS: PCP Family Medicine; Referring Provider Advanced Practice Midwife; Visit Provider Advanced Practice Midwife
DX: O26.899 Other specified pregnancy related conditions, unspecified trimester (principal); R30.0 Dysuria; Z3A.00 Weeks of gestation of pregnancy not specified
CPT/HCPCS: 87077; 87086; 87088; 87186

== ENCOUNTER → 2025-06-09 | Outpatient (CLI) | payer OTHER, SELFPAY ==
[2025-06-09 15:10] LABS: Hematocrit 36.0 % (37-47); Hemoglobin 12.4 g/dL (12.0-15.0); Immature Granulocytes Count 0.050 X10^3/uL (0.0-0.0); Mean Corp Hgb Conc 34.4 g/dL (32-36); Mean Corpuscular Volume 85.9 fL (81-99); Mean Platelet Vol. 10.6 fl (6.2-12.0); NRBC Flagged by Analyzer 0 % (0-5); POSITIVE COUNT YES; Platelet Count 139 K/mm3 (150-450); RBC Distribution Width CV 12.0 % (11.6-14.6); RBC Distribution Width SD 37.9 fl (35.1-43.9); Red Blood Count 4.19 M/mm3 (4.2-5.4); White Blood Count 7.3 K/mm3 (4.4-11.0)
[2025-06-09 15:35] LABS: Differential Indicated SCAN CRITERIA MET
[2025-06-09 15:40] LABS: HIV Nonreactive (Nonreactive); Syphilis Antibodies Nonreactive (Nonreactive)
[2025-06-09 15:43] LABS: Glucose Challenge Gest 1H 50g 78 mg/dL (70-140)
== END | disposition home or self-care (01) ==
LOC: PAVLAB 14:26 → LAB 14:35
PROVIDERS: PCP Family Medicine; Referring Provider Nurse Practitioner Women's Health; Visit Provider Nurse Practitioner Women's Health
DX: O09.92 Supervision of high risk pregnancy, unspecified, second trimester (principal); Z13.1 Encounter for screening for diabetes mellitus; Z3A.00 Weeks of gestation of pregnancy not specified
CPT/HCPCS: 36415; 82950; 85025; 86703; 86780; 86850; 86900; 86901

== ENCOUNTER → 2025-06-23 | Outpatient (CLI) | payer OTHER, SELFPAY ==
--- OUTSIDE RECORDS SUMMARY | 2025-06-23 10:52 | XMS RPT_ITS | CCD ---
Author Organization [facility] Care Team Providers Care Taker Off Name Role Phone MD Ada Garcia Primary Care Provider UnavailMD Ada Rodas Referring Provider Unavailable Dr. Serenity Luna Attending Provider [phone] Dr. Ana Wynne Attending Provider [phone] Dr. Ana Wynne Other Provider [phone] Dr. Samia Frias Admit Provider Dr. Ana Wynne Admit Provider [phone] Prince LEATHER HEEL BREASTER, DENISE-Janay Louise Attending Provider [phone] Ada Garcia Primary Care Provider MD Ada Garcia Primary Care Provider Unavaila MD Ada Alamo S Referring Provider Unavailable HOWARD Li Attending Provider Dr. Ana Wynne Attending Provider [phone] SERENITY BELL Referring Unavailab ADA Li Primary Care Unavailable KAN TORREZ Attending Unavailable MD Ada Maddox S Primary Care Provider Unav ailable MD Ada Maddox Referring Provider Unavail able Dr. Ana Wynne Attending Provider [phone] Dr. Serenity Luna Attending Provider [phone] Prince LEATHER HEEL BREASTER, DENISE-Janay Louise Attending Provider [phone] MAX Knight Attending Provider [phone] MD Ada Maddox S Primary Care Provider Unav ailable MD Ada Maddox Referring Provider Unavail able Dr. Ada Garcia S Primary Care Provider MD Ada Maddox S Primary Care Provider Unav ailable MD Ada Maddox S Referring Provider Unavail able Dr. Serenity Luna Attending Provider [phone] MD Ada Maddox S Primary Care Provider Unav ailable Radha THAPA MD Ada S Referring Provider Unavail able Prince LEATHER HEEL BREASTER, LEATHER HEEL BREASTER-C Aspen Attending Provider [phone] Dr. Ana Wynne Attending Provider MAX Knight Referring Provider [phone] MAX Knight Other Provider [phone] Ada Garcia Referring Provider MD Ada Maddox S Primary Care Provider Unav ailMD Ada Hoover S Referring Provider Unavail able MAX Knight Attending Provider [phone] MAX Knight Admit Provider [phone] Ada Garcia Primary Care Provider ADA GARCIA Primary Care Unavailable LEIA MCDONOUGH Attending Unavailable Dr. Ada Garcia MD Primary Care Provider Jarrett BABCOCK, Kiah Attending Provider Unavailabl Dr. Ada Schroeder MD Referring Provider Jeanine Knight CNM Attending Provider [phone] Jeanine Knight CNM Referring Provider [phone] Dr. Ana Wynne MD Attending Provider Dr. Serenity Luna DO Attending Provider JORGE LUIS REID Primary Care Physician Prince LEATHER HEEL BREASTER-CAspen Attending Provider [phone] JORGE LUIS REID Attending JORGE LUIS Youngblood Primary Care Dr. Ada Schneider MD Primary Care Physician Jeanine Knight CNM Attending Physician Ricci SAXENA, Dr. Perez Attending Physician Dr. Serenity Luna DO Attending Physician Prince WALKER-CAspen Attending Physician [phone] Jolliff, Ada S Primary Care Unavailable Jolliff, Ada S Referring Unavailable Tyler PA, Jose Attending Unavailable Jolliff, Ada S Referring Unavailable Jolliff, Ada S Primary Care Unavailable Jeanine Knight Attending Unavailable Eugene Jeanine Referring Unavailable Jolliff, Ada S Primary Care Unavailable Jeanine Knight Attending Unavailable Jolliff, Ada S Primary Care Unavailable Tyler PA, Jose Attending Unavailable Tyler PA, Jose Referring Unavailable EugeneJeanine Attending Unavailable Jolliff, Ada S Primary Care Unavailable Jeanine Knight Referring Unavailable Jolliff, Ada S Primary Care Unavailable Prince LEATHER HEEL BREASTER, Aspen Attending Unavailable Prince LEATHER HEEL BREASTER, Aspen Referring Unavailable Jeanine Knight Referring Unavailable Jolliff, Ada S Primary Care Unavailable Jeanine Knight Attending Unavailable Jolliff, Ada S Referring Unavailable Jolliff, Ada S Primary Care Unavailable Prince LEATHER HEEL BREASTER, Aspen Attending Unavailable Jolliff, Ada S Referring Unavailable Jolliff, Ada S Primary Care Unavailable Prince LEATHER HEEL BREASTER, Aspen Attending Unavailable Jolliff, Ada S Referring Unavailable Jolliff, Ada S Primary Care Unavailable Serenity Luna Attending Unavailabl e Jolliff, Ada S Primary Care Unavailable Kiah Farias Attending Unavailable Jolliff, Ada S Referring Unavailable Jolliff, Ada S Primary Care Unavailable Ana Wynne Attending Unavailable Jolliff, Ada S Primary Care Unavailable Jolliff, Ada S Referring Unavailable Jeanine Knight Attending Unavailable Medications Current Medications Medication Drug Class(es) Dates Sig (Normalized) Sig (Original) [id number] 200 actuat albuterol 0.09 mg/actuat metered dose [...] Total Allowed Fills: 1 Fills Dispensed: 0 Huddleston-3 Fatty Acids (3 sources) Start: 04-10-2023 take 600 mg by mouth once daily Huddleston-3 Fatty Acids Active 600 MG PO DAILY April 10, 2023 12:00am Huddleston-3 Fatty Acids capsule (7 sources) Start: 04-10-2023 take 1 capsule by mouth once daily Huddleston-3 Fatty Acids capsule Active 600 mg PO DAILY April 10, 2023 12:00am Complies with drug therapy Start: 04-10-2023 take 1 capsule by mouth once d aily Huddleston-3 Fatty Acids capsule Active 600 mg PO DAILY April 10, 2023 12:00am [id number]-Fqjr-Dl-I7-Mcg-Mkr-Lb sh (11 sources) Start: 09-10-2022 Mek119-Ktfj-Kk-Q0-Bok-Kim-Is sh Active CAP PO September 10, 2022 1:00am Start: 09-10-2022 Ilz351-Zrhf-Sj -P7-Scn-Qou-Fish Active CAP PO September 10, 2022 12:00am Ffq926-Clcq-Gr-O0-Fpl-Bwq-Kb sh 27 mg iron-800 mcg-260 mg capsule (7 sources) Start: 09-10-2022 Wfy388-Offt-Ce-Z0-Nki-Uau-Sx sh 27 mg iron-800 mcg-260 mg capsule Active NMA PO September 10, 2022 1:00am Complies with drug therapy Start: 09-10-2022 Qxw948-Gcyo-Hg -N9-Cqe-Ywv-Fish 27 mg iron-800 mcg-260 mg capsule Active NMA PO Corinne 17th, 2023 1:00am predniSONE 10 mg oral tablet (1 [...] 2022 1:13am must administer with a meal/food Huddleston-3 Fatty Acids (Fish Oil Concentrate) 1,000 mg capsule (19 sources) Start: 09-26-2020 End: 11-15-2021 take 1 capsule by mouth once daily Huddleston-3 Fatty Acids (Fish Oil Concentrate) 1,000 mg capsule Discontinued 1000 MG PO DAILY September 26, 2020 9:51am November 15, 2021 10:04am Start: 09-26-2020 End: 11-15-2021 take 1 capsule by mouth once daily Huddleston-3 Fatty Acids (Fish Oil Concentrate) 1,000 mg capsule Discontinued 1000 mg PO DAILY September 26, 2020 1:00am November 15, 2021 10:04am supplement Start: 09-26-2020 End: 11-15-2021 take 1 capsule by mouth once daily Huddleston-3 Fatty Acids (Fish Oil Concentrate) 1,000 mg capsule Discontinued 1000 mg PO DAILY September 26, 2020 1:00am November 15, 2021 10:04am Start: 09-26-2020 End: 11-15-2021 take 1 capsule by mouth once daily Huddleston-3 Fatty Acids (Fish Oil Concentrate) 1,000 mg capsule Discontinued 1000 MG PO DAILY September 26, 2020 1:00am November 15, 2021 10:04am Start: 09-26-2020 End: 11-15-2021 take 1 capsule by mouth once daily Huddleston-3 Fatty Acids (Fish Oil Concentrate) 1,000 mg [...] trimester] 04-10-2023 Episodic Comment on above: 04/10- 09/23/3, urine neg, resolved with oral hydrationD/C home Genitourinary symptoms and ill-defined conditions (2 sources) Urinary symptoms ; Translations: [Unspecified symptoms and signs involving the genitourinary system] Onset: 06-09-2025 Episodic Immunizations and screening for infectious disease (20 sources) Requires diphtheria, tetanus and pertussis vaccination; Translations: [Encounter for immunization] Episodic Comment on above: Given 07/11/21 Rhogam given 11/24 due to quant of 10 with bleeding. [...] on above: repeat CBC in 4w 02/18:139. 03/18:135. Rpt 36wk Other complications of (20 sources) High risk ; Translations: [Supervision of high risk , unspecified, unspecified trimester] 09-10-2022 Episodic Comment on above: ; RONEY 08/31/24; PC : [place]; : Bam PRR RONEY 10/01/21 Boy! Renae Spouse: Bam Stanley [id number], RONEY 05/09/23 , PC Renae, Bam PRR [...] of high-risk with history of ] Onset: 06-09-2025 09-16-2022 Episodic Other complications of (20 sources) Other specified related conditions, unspecified trimester; Translations: [Other specified complications of , antepartum condition or complication] Onset: 06-21-2025 09-16-2022 Episodic Other complications of (14 sources) [...] care or not applicable] 12-24-2022 Episodic Other complications of (1 source) Other specified related conditions, second trimester; Translations: [Other specified related conditions, second trimester] Onset: 06-09-2025 Episodic Other complications of (1 source) Supervision of high risk , unspecified, second trimester; Translations: [Supervision of high risk , unspecified, second trimester] Onset: 06-21-2025 Episodic Other female genital disorders (19 sources) Recurrent miscarriage; 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] 11-15-2021 Episodic Comment on above: minimal elevated APL :rpt 12 wk, repeat nl Other female genital disorders (8 sources) Recurrent loss; Translations: [Full-term ] Episodic Other hematologic conditions (20 sources) History [...] certain disorders involving the immune mechanism] Onset: 06-09-2025 Episodic Other nutritional; endocrine; and metabolic disorders (20 sources) Biotinidase deficiency; 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; 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 Other nutritional; endocrine; and metabolic disorders (20 sources) Galactosemia; 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 Comment on above: carrier of; 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 Other nutritional; endocrine; and metabolic disorders (1 source) Biotinidase deficiency; 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 NIPT low risk, nl anatomy GBS neg,discussed ge netic & carrier testing Discussed genetic/ca rrier testing - undecided; prior carrier testing done, nl anatomy Other screening for suspected conditions (not mental disorders or infectious disease) (7 sources) Biopsy result abnormal; Translations: [Abnormal histological findings in specimens from other organs, systems and tissues] 01-14-2025 Episodic Comment on above: Mole on stomach - hi gh risk, recheck in 3mo Other skin disorders (1 source) Eruption; Translations: [...] to lead; Translations: [Exposure to lead] Onset: 06-09-2025 01-27-2025 Episodic Residual codes; unclassified (1 source) Unspecified blood type, Rh negative; Translations: [Unspecified blood type, Rh negative] Onset: 06-09-2025 Episodic Residual codes; unclassified (1 source) 28 weeks gestation of ; Translations: [28 weeks gestation of ] Onset: 06-09-2025 Episodic Urinary tract infections (20 sources) Urinary tract infectious disease; Translations: [Urinary tract infection, site not specified] Onset: 06-09-2025 09-02-2022 Episodic Past or Other Problems Problem Classification Problem Date Documented Da te Episodic/Chronic Residual codes; unclassified (1 source) 16 weeks gestation of ; Translations: [16 weeks gestation of ] Onset: 03-23-2025 Episodic Residual codes; unclassified (1 source) 13 weeks [...] Test Name Value Interpretation Reference Range Facility Urine Cultureon 06-13-2025 [facility] Urine Culture Streptococcus parasanguinis [place] Count 80,000-100,000 Streptococcus parasanguinis: REACTION Ampicillin Islt NEO <=0.25 Penicillin G Islt NEO 0.12 S Cefotaxime Islt NEO <=0.12 S cefTRIAXone Islt NEO <=0.12 S Linezolid Islt NEO <=2 S Vancomycin Islt NEO 0.[address] [facility] Comment on above: Performed By: #### M 100.2200 #### [facility] [address] [place], [place], [address] CBC W/Diff, Automatedon 05-25 PLT MORPH LARGE Normal [facility] Comment on above: Performed By: #### B TS, L100.0100, L509.8002, L3890.6006, L501.0250 #### [facility] [address] [place], [address] Glucose Challenge Gest 1H 50 savi 06-09-2025 GLU GEST 50g 1H 77 mg/dL Normal 70-[address] [facility] Comment on above: Result Comment: AMENDED REPORT 06/09/25 1543 GLU GEST 50g 1H previously reported as: 77 mg/dL Performed By: #### B TS, L100.0100, L509.8002, L3890.6006, L501.0250 #### [facility] [address] [place], [address] HIVon 06-09-2025 HIV Non-Reactive Normal Nonreactive [facility] Comment on above: Result Comment: Non- Reactive Reactive Repeatedly reactive samples must be confirmed according to CDC recommended confirmatory algorithms. The subresults for either HIVAG or AHIV can be used as an aid in the selection of the confirmation algorithm for reactive samples. Send out specimens with Reactive results to [facility] for confirmation. Order the HIV antibody detection and differentiation: lc#[id number] Performed By: #### B TS, L100.0100, L509.8002, L3890.6006, L501.0250 #### [facility] [address] [place], [address] Jboss Architect Office Visit Reporton 06-09-2025 Jboss Architect Office Visit Report [facility] [address], [address] [place] [address] OFFICE VISIT Date of Service: 06/09/25 MR#: [id number] Acct: [id number] Name: HEATHER ANGEL Rep #: [id number] : 1995 Provider: MAX Jerez ams Age/Sex: 30/F Location: [place] Status: Signed Intake Vital Signs 04/20/25 10:09 05/19/25 12:53 06/09/25 14:58 Height 5 ft 3 in 5 ft 3 in 5 ft 3 in Weight: 165 lb 3 oz BMI 29.2 BP 115/73 Intake Visit Reasons: 28 WK OB GLUCOSE/RHOGAM Chief Complaint: 28wk OB Rocket Test Fire Worker Required: No Is patient in pain?: No Allergies No Known Allergies Allergy (Verified 06/09/25 15:01) Medications ???Medication ???Instructions ???Recorded ???Confirmed ???Type PNV no.151-iron 27 mg-folic 800 cap PO 09/10/22 06/09/25 History mcg-omega3 260 dw-seb-aga-fish capsule omega-3 fatty acids 600 mg PO DAILY 04/10/23 06/09/25 History Last Menstrual Period: 11/24/24 Have you fallen in the past year?: No PFSH PFSH Medical History Galactosemia Biotinidase deficiency Abnormal biopsy result Family History Grandfather Cancer unknown type Grandmother Hypertension Ovarian cancer Paternal Grandfather Hypertension Grandmother Asthma Father Hypertension Social History adopted: No household members: spouse and children number of children: 2 current occupation: [employer] current occupational exposures/hazards: No pets and animals: [...] 1-2 times per week duration: 15-30 minutes/day gabriela/restorationist: Quaker seatbelt use: always do you feel safe at home: Yes 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 OB Visit RONEY Calculator Estimated Delivery Date Method Current WG Current Estimate 09/01/25 Ultrasound #1 28w 0d Other Estimates 08/31/25 LMP (Certain) 28w 1d Expected Delivery Route/Plan Labor Preferences- CB/BF [...] 119/75 Negative -???-???-???-???-???-???-? ??-???-???-???-???-???- Negative 150 -???-???-???-???-???-???-? ??-???-?? (more content not included)... Normal [facility] Syphilis Antibodieson 2024 Syphilis Abs Non-Reactive Normal Nonreactive [facility] Comment on above: Performed By: #### B TS, L100.0100, L509.8002, L3890.6006, L501.0250 #### [facility] [address] [place], [address] Type AND Screenon 06-09-2025 Ab SCREEN GEL Negative Normal [facility] Comment on above: Order Comment: HVAG Performed By: #### B TS, L100.0100, L509.8002, L3890.6006, L501.0250 #### [facility] [address] [place], [address] Laboratory - Chemistry and C hemistry - challengeOrdered By: Aspen Morrison on 05-19-2025 Glucose Ql (U) Negative [facility] - UrinalysisOrder ed By: Aspen Morrison on 05-19-2025 Protein Ql (U) Negative [facility] Jboss Architect Office Visit Reporton 05-19-2025 Jboss Architect Office Visit Report [facility] [address], [address] [place] [address] OFFICE VISIT Date of Service: 05/19/25 MR#: [id number] Acct: [id number] Name: HEATHER ANGEL Rep #: [id number] : 1995 Provider: CAPO botello Age/Sex: 30/F Location: [place] Status: Signed Intake Vital Signs 03/23/25 10:38 04/20/25 10:09 05/19/25 12:53 Height 5 ft 3 in 5 ft 3 in 5 ft 3 in Weight: 159 lb 5 oz BMI 28.2 BP 114/67 Intake Visit Reasons: 25 wk ob Chief Complaint: 25 Week OB Rocket Test Fire Worker Required: No Is patient in pain?: No Allergies No Known Allergies Allergy (Verified 05/19/25 12:57) Medications ???Medication ???Instructions ???Recorded ???Confirmed ???Type PNV no.151-iron 27 mg-folic 800 cap PO 09/10/22 05/19/25 History mcg-omega3 260 gq-inx-dth-fish capsule omega-3 fatty acids 600 mg PO DAILY 04/10/23 05/19/25 History Last Menstrual Period: 11/24/24 Zika: Zika virus screening: Negative : Yes PFS PFS Medical History Galactosemia Biotinidase deficiency Abnormal biopsy result Family History Grandfather Cancer unknown type Grandmother Hypertension Ovarian cancer Paternal Grandfather Hypertension Grandmother Asthma Father Hypertension Social History adopted: No household members: spouse and children number of children: 2 current occupation: [employer] current occupational exposures/hazards: No pets and animals: [...] 1-2 times per week duration: 15-30 minutes/day gabriela/restorationist: Quaker seatbelt use: always do you feel safe at home: Yes 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 (more content not included)... Normal [facility] - Chemistry and C hemistry - challengeOrdered By: Aspen Morrison on 04-20-2025 Glucose Ql (U) Negative [facility] - UrinalysisOrder ed By: Aspen Morrison on 04-20-2025 Protein Ql (U) Negative [facility] Jboss Architect Office Visit Reporton 04-20-2025 Jboss Architect Office Visit Report [facility] [address], [address] [place] [address] OFFICE VISIT Date of Service: 04/20/25 MR#: [id number] Acct: [id number] Name: HEATHER ANGEL Rep #: [id number] : 1995 Provider: CAPO botello Age/Sex: 30/F Location: [place] Status: Signed Intake Vital Signs 01/27/25 10:32 03/23/25 10:38 04/20/25 10:04 04/20/25 10:09 Height 5 ft 3 in 5 ft 3 in 5 ft 3 in 5 ft 3 in Weight: 152 lb 6 oz BMI 26.9 BP 120/77 Intake Visit Reasons: 21wk ob Chief Complaint: 21 Week OB Rocket Test Fire Worker Required: No Is patient in pain?: No Allergies No Known Allergies Allergy (Verified 04/20/25 10:00) Medications ???Medication ???Instructions ???Recorded ???Confirmed ???Type PNV no.151-iron 27 mg-folic 800 cap PO 09/10/22 04/20/25 History mcg-omega3 260 ox-fhy-lwv-fish capsule omega-3 fatty acids 600 mg PO [...] children number of children: 2 current occupation: [employer] current occupational exposures/hazards: No pets and animals: [...] 1-2 times per week duration: 15-30 minutes/day gabriela/restorationist: Quaker seatbelt use: always do you feel safe at home: Yes 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 (more content not included)... Normal [facility] OB Anatomy w/ Transvaginalon 04-14-2025 OB Anatomy w/ Transvaginal [facility] [address] [place] [address] OB Anatomy w/ Transvaginal MR#: [id number] Acct: [id number] Name: HEATHER ANGEL Rep #: [id number] : 1995 F 30 From: Philip stoner MD PCP: Dr. Ada Garcia MD Status: [facility] CLI Study: OB Anatomy w/ Transvaginal Date of Exam: 04/14 Exam# [id number] Ordering Dr: Jeanine Knight CNM PROCEDURE: OB [...] 19 weeks and 6 days. Reading Location: [place] CC: MAX Knight; Dr. Ada Garcia MD Pharmacy District Manager: Signed Normal [facility] Laboratory - Chemistry and C hemistry - challengeOrdered By: Serenity Shin on 03-23-2025 Glucose Ql (U) Negative [facility] - UrinalysisOrder ed By: Serenity Shin on 03-23-2025 Protein Ql (U) Negative [facility] Jboss Architect Office Visit Reporton 03-23-2025 Jboss Architect Office Visit Report [facility] [address], [address] [place] [address] OFFICE VISIT Date of Service: 03/23/25 MR#: [id number] Acct: [id number] Name: HEATHER ANGEL Rep #: [id number] : 1995 Provider: Dr. Serenity Matos DO Age/Sex: 29/F Location: [place] Status: Signed Intake Vital Signs 01/27/25 10:32 02/24/25 15:20 03/23/25 10:36 03/23/25 10:38 Height 5 ft 3 in 5 ft 3 in 5 ft 3 in 5 ft 3 in Weight: 142 lb 6 oz 144 lb 147 lb 8 oz BMI 25.2 25.4 26.1 BP 115/75 119/75 123/70 H Intake Visit Reasons: 17wk ob Rocket Test Fire Worker Required: No Is patient in pain?: No Allergies No Known Allergies Allergy (Verified 03/23/25 10:36) Medications ???Medication ???Instructions ???Recorded ???Confirmed ???Type PNV no.151-iron 27 mg-folic 800 cap PO 09/10/22 03/23/25 History mcg-omega3 260 do-igq-zbd-fish capsule omega-3 fatty acids 600 mg PO [...] children number of children: 2 current occupation: [employer] current occupational exposures/hazards: No pets and animals: [...] 1-2 times per week duration: 15-30 minutes/day gabriela/restorationist: Quaker seatbelt use: always do you feel safe at home: Yes 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 Normal [facility] - Chemistry and C hemistry - challengeOrdered By: Ana Wynne on 02-24-2025 Glucose Ql (U) Negative [facility] - UrinalysisOrder ed By: Ana Wynne on 02-24-2025 Protein Ql (U) Negative [facility] Jboss Architect Office Visit Reporton 02-24-2025 Jboss Architect Office Visit Report [facility] [address], [address] [place] [address] OFFICE VISIT Date of Service: 02/24/25 MR#: [id number] Acct: [id number] Name: HEATHER ANGEL Rep #: [id number] : 1995 Provider: Dr. Ana wolff MD Age/Sex: 29/F Location: [place] Status: Signed Intake Vital Signs 09/03/24 06:10 01/27/25 10:32 02/24/25 15:20 Height 5 ft 3 in 5 ft 3 in 5 ft 3 in Weight: 144 lb BMI 25.4 BP 119/75 Intake Visit Reasons: 13wk OB Rocket Test Fire Worker Required: No Is patient in pain?: No Allergies No Known Allergies Allergy (Verified 02/24/25 15:23) Medications ???Medication ???Instructions ???Recorded ???Confirmed ???Type PNV no.151-iron 27 mg-folic 800 cap PO 09/10/22 02/24/25 History mcg-omega3 260 ql-fzl-pzy-fish capsule omega-3 fatty acids 600 mg PO [...] children number of children: 2 current occupation: [employer] current occupational exposures/hazards: No pets and animals: [...] 1-2 times per week duration: 15-30 minutes/day gabriela/restorationist: Quaker seatbelt use: always do you feel safe at home: Yes 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 Normal [facility] Chlamydia/GC AUDRA aptimaon CHLAMY,NUC ACID Negative Normal Negative [facility] Comment on above: Performed By: #### M 100.2200, L7000.1800 #### [facility] [address] [place], [address] GC BY NUC ACID Negative Normal Negative [facility] Comment on above: Result Comment: Perf ormed at: = - [address] [id number] Surveillance Operator: Whitley Anthony MD, Phone: [phone] Performed By: #### M 100.2200, L7000.1800 #### [facility] [address] [place], [address] Urine Cultureon 01-30-2025 URC Below infection leve l. Mixed Gram Pos Gram Neg Org [place] Count <1000 MIXC Mixed contaminants. Submit a new specimen if indicated. Normal [facility] Comment on above: Performed By: #### M 100.2200, L7000.1800 #### [facility] [address] [place], [address] Lead, Blood Adult 16+yrson 0 01-28-2025 LEAD,BLD ADULT < 1.0 Normal 0.0-3.[address] [facility] Comment on above: Order Comment: Test( s) 557278-Jivm, Blood (Adult)was developed and its performance characteristicsdetermined by [employer]. It has not been cleared or approvedby the Food and Drug Administration. Result Comment: Test ing performed by Inductively coupled plasma/Mass Spectrometry. Analysis by inductively coupled plasma/mass spectrometry (ICP/MS) Environmental Exposure: WHO Recommendation <5.0 Occupational Exposure: OSHA Lead Std 40.0 AARON 30.0 Detection Limit = 1.0 Performed at: [facility] [address] [id number] Surveillance Operator: Brian Olivares PhD, Phone: [phone] Performed By: #### M 100.2200, L7000.1800 #### [facility] [address] [facility], [address] Absolute lymphocyte countOrd ered By: Jeanine Knight on 01-27-2025 Lymphocytes Auto (Unsp spec) [#/Vol] 1.49 10*3/uL 0.83-4.[address] [facility] Absolute neutrophil countOrd ered By: Jeanine Knight on 01-27-2025 Neutrophils (Bld) [#/Vol] 3.1 10*3/uL 2.0-7.[address] [facility] Automated lymphocyte count a s percentage of total leukocytesOrdered By: Jeanine Knight on 01-27-2025 Lymphocytes/100 WBC Auto (Unsp spec) 29.5 % 19-[address] [facility] Basophil percentageOrdered B y: Jeanine Knight on 01-27-2025 Basophils/100 WBC (Bld) 0.8 % 0-[address] [facility] CBC W/Diff, Automatedon 06 Absolute Lymph 1.49 X10 3/uL Normal 0.83-4.[address] [facility] Comment on above: Performed By: #### M 100.2200, L7000.1800 #### [facility] [address] [facility], [address] Absolute Neut 3.1 X10 3/uL Normal 2.0-7.[address] [facility] Comment on above: Performed By: #### M 100.2200, L7000.1800 #### [facility] [address] [facility] [place], [address] Basophils/100 WBC (Bld) 0.8 % Normal 0-[address] [facility] Comment on above: Performed By: #### M 100.2200, L7000.1800 #### [facility] [address] [place], [address] Eosinophils/100 WBC (Bld) 2.2 % Normal 0-[address] [facility] Comment on above: Performed By: #### M 100.2200, L7000.1800 #### [facility] [address] [place], [address] Erythrocyte distribution width (RBC) [Ratio] 11.5 % Low 11.6-14.[address] [facility] Comment on above: Performed By: #### M 100.2200, L7000.1800 #### [facility] [address] [place], [address] Hematocrit (Bld) [Volume fraction] 37.0 % Normal 37-[address] [facility] Comment on above: Performed By: #### M 100.2200, L7000.1800 #### [facility] [address] [place], [address] Hemoglobin (Bld) [Mass/Vol] 12.7 g/dL Normal 12.0-15.[address] [facility] Comment on above: Performed By: #### M 100.2200, L7000.1800 #### [facility] [address] [place], [address] IG% 0.200 Normal 0.0-0.[address] [facility] Comment on above: Result Comment: IG% - Immature Granulocytes (promyelocytes, myelocytes and metamyelocytes) > 1% indicates that a LEFT SHIFT is Present. Performed By: #### M 100.2200, L7000.1800 #### [facility] [address] [place], [address] Lymphocytes/100 WBC (Bld) 29.5 % Normal 19-[address] [facility] Comment on above: Performed By: #### M 100.2200, L7000.1800 #### [facility] [address] [place], [address] MCH (RBC) [Entitic mass] 28.9 pg Normal 27.0-32.[address] [facility] Comment on above: Performed By: #### M 100.2200, L7000.1800 #### [facility] [address] [place], [address] MCHC (RBC) [Mass/Vol] 34.3 g/dL Normal 32-36 [facility] Comment on above: Performed By: #### M 100.2200, L7000.1800 #### [facility] [address] [place], [address] MCV (RBC) [Entitic vol] 84.3 fL Normal 81-[address] [facility] Comment on above: Performed By: #### M 100.2200, L7000.1800 #### [facility] [address] [place], [address] Monocytes/100 WBC (Bld) 5.9 % Normal 0-[address] [facility] Comment on above: Performed By: #### M 100.2200, L7000.1800 #### [facility] [address] [place], [address] Neutrophils/100 WBC (Bld) 61.4 % Normal 47-[address] [facility] Comment on above: Performed By: #### M 100.2200, L7000.1800 #### [facility] [address] [place], [address] Nucleated RBC (Bld) [#/Vol] 0 10*3/uL Normal 0-[address] [facility] Comment on above: Performed By: #### M 100.2200, L7000.1800 #### [facility] [address] [place], [address] Platelet mean volume (Bld) [Entitic vol] 10.5 fL Normal 6.2-12.[address] [facility] Comment on above: Performed By: #### M 100.2200, L7000.1800 #### [facility] [address] [place], [address] Platelets (Bld) [#/Vol] 163 10*3/uL Normal 150-[address] [facility] Comment on above: Performed By: #### M 100.2200, L7000.1800 #### [facility] [address] [place], [address] RBC (Bld) [#/Vol] 4.39 10*6/uL Normal 4.2-5.4 [facility] Comment on above: Performed By: #### M 100.2200, L7000.1800 #### [facility] [address] [place], [address] RDW SD 35.3 fl Normal 35.1-43.[address] [facility] Comment on above: Performed By: #### M 100.2200, L7000.1800 #### [facility] [address] [place], [address] WBC (Bld) [#/Vol] 5.1 10*3/uL Normal 4.4-11.0 [facility] Comment on above: Performed By: #### M 100.2200, L7000.1800 #### [facility] [address] [place], [address] Chlamydia trachomatis rRNA d etection by probe and target amplification methodOrdered By: Jeanine Knight on 01-27-2025 C. trachomatis rRNA AUDRA+probe Ql (Unsp spec) Negative Negative [facility] Eosinophil percentageOrdered By: Jeanine Knight on 01-27-2025 Eosinophils/100 WBC (Bld) 2.2 % 0-[address] [facility] Erythrocyte distribution wid th ratioOrdered By: Jeanine Knight on 01-27-2025 Erythrocyte distribution width (RBC) [Ratio] 11.5 % Low 11.6-14.[address] [facility] Erythrocyte distribution wid th standard deviationOrdered By: Jeanine Knight on 01-27-2025 Erythrocyte distribution width (RBC) [Ratio] 35.3 fl 35.1-43.[address] [facility] HIVon 01-27-2025 HIV Non-Reactive Normal Nonreactive [facility] Comment on above: Result Comment: Non- Reactive Reactive Repeatedly reactive samples must be confirmed according to CDC recommended confirmatory algorithms. The subresults for either HIVAG or AHIV can be used as an aid in the selection of the confirmation algorithm for reactive samples. Send out specimens with Reactive results to [facility] for confirmation. Order the HIV antibody detection and differentiation: #[id number] Performed By: #### M 100.2200, L7000.1800 #### [facility] [address] [facility], [address] Hematocrit Auto (Bld) [Volum e fraction]Ordered By: Jeanine Knight on 01-27-2025 Hematocrit (Bld) [Volume fraction] 37.0 % 37-[address] [facility] Hemoglobin measurementOrdere d By: Jeanine Knight on 01-27-2025 Hemoglobin (Bld) [Mass/Vol] 12.7 g/dL 12.0-15.[address] [facility] Hepatitis C Antibodyon 01-27 Hepatitis C Ab Non-Reactive Normal Nonreactive [facility] Comment on above: Result Comment: Reac tive: Presumptive evidence of antibodies to HCV. Follow CDC recommendations for supplemental testing. Non-Reactive: Antibodies to HCV were not detected; does not exclude the possibility of exposure to HCV Reactive Results are presumptive evidence of antibodies to HCV. Follow CDC recommendations for supplemental testing. Order confirmation testing: HCV Quant by PCR testing - HCVPCR #[id number] Non Reactive: < 0.8 Equivocal: >/= 0.8 to < 1.0 Reactive: >/= 1.0 The CDC requires that a reactive/equivocal HCV antibody result be sent out for confirmation. HCV Quant by PCR testing. Performed By: #### M 100.2200, L7000.1800 #### [facility] [address] [place], [address] Immature granulocytes/100 WB C Auto (Bld)Ordered By: Jeanine Knight on 01-27-2025 Immature granulocytes/100 WBC (Bld) 0.200 % 0.0-0.[address] [facility] Comment on above: IG% - Immature Granu locytes (promyelocytes, myelocytes and metamyelocytes) > 1% indicates that a LEFT SHIFT is Present. L3890.6102on 01-27-2025 HEP B Surf Ag Non-Reactive Normal Nonreactive [facility] Comment on above: Result Comment: Reac tive: Presumptive evidence of HBV. Repeatedly reactive samples must be confirmed using a neutralization test ([employer] HBsAg Confirmatory Test) Non-Reactive: HBsAg not detected; does not exclude the possibility of exposure to HBV Performed By: #### M 100.2200, L7000.1800 #### [facility] [address] [facility], [address] L509.4006on 01-27-2025 Rubella IgG REAC Normal Nonreactive [facility] Comment on above: Result Comment: Anti body Result: Interpretation Non-Reactive: Non-Immune Reactive: Immune The following results were obtained with the [employer] Rubella IgG assay. Results from assays of other manufacturers cannot be used interchangeably. Performed By: #### M 100.2200, L7000.1800 #### [facility] [address] [place], [place], [address] Laboratory - Microbiology an d Antimicrobial susceptibilityOrdered By: Jeanine Knight on 01-27-2025 HBV surface Ag Ql (S) Non-Reactive Nonreactive [facility] Comment on above: Reactive: Presumptiv e evidence of HBV. Repeatedly reactive samples must be confirmed using a neutralization test ([employer] HBsAg Confirmatory Test)Non-Reactive: HBsAg not detected; does not exclude the possibility of exposure to HBV MCV (mean corpuscular volume ) determinationOrdered By: Jeanine Knight on 01-27-2025 MCV (RBC) [Entitic vol] 84.3 fL 81-[address] [facility] Mean corpuscular hemoglobin (MCH) determinationOrdered By: Jeanine Knight on 01-27-2025 MCH (RBC) [Entitic mass] 28.9 pg 27.0-32.[address] [facility] Mean corpuscular hemoglobin concentration (MCHC) determinationOrdered By: Jeanine Knight on 01-27-2025 MCHC (RBC) [Mass/Vol] 34.3 g/dL 32-36 [facility] Mean platelet volume determi nationOrdered By: Jeanine Knight on 01-27-2025 Platelet mean volume (Bld) [Entitic vol] 10.5 fL 6.2-12.[address] [facility] Monocyte percentageOrdered B y: Jeanine Knight on 01-27-2025 Monocytes/100 WBC (Bld) 5.9 % 0-[address] [facility] Neisseria gonorrhoeae nuclei c acid detection by amplified probe techniqueOrdered By: Jeanine Knight on 01-27-2025 N. gonorrhoeae DNA AUDRA+probe Ql (Unsp spec) Negative Negative [facility] Comment on above: Performed at: =[address] [id number] Director: Whitley Anthony MD, Phone: [phone] Neutrophil percentageOrdered By: Jeanine Knight on 01-27-2025 Neutrophils/100 WBC (Bld) 61.4 % 47-[address] [facility] No Panel InformationOrdered By: Jeanine Knight on 01-27-2025 HIV (1&2) Antibody Non-Reactive Nonreactive [facility] Comment on above: Non-ReactiveReactive Repeatedly reactive samples must be confirmed according to CDC recommended confirmatory algorithms. The subresults for either HIVAG or AHIV can be used as an aid in the selection of the confirmation algorithm for reactive samples.Send out specimens with Reactive results to [facility] for confirmation.Order the HIV antibody detection and differentiation: #[id number] Nucleated red blood cell per centageOrdered By: Jeanine Knight on 01-27-2025 Nucleated RBC/100 WBC (Bld) [Ratio] 0 % 0-[address] [facility] Jboss Architect Office Visit Reporton 01-27-2025 Jboss Architect Office Visit Report 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: No Is patient in pain?: No Allergies No Known Allergies Allergy (Verified 01/27/25 10:30) Medications ???Medication ???Instructions ???Recorded ???Confirmed ???Type PNV no.151-iron 27 mg-folic 800 cap PO 09/10/22 01/27/25 History mcg-omega3 260 rh-qva-bra-fish capsule omega-3 fatty acids 600 mg PO DAILY 04/10/23 01/27/25 History Last Menstrual Period: 11/24/24 PFS PFS Medical History Galactosemia Biotinidase deficiency Abnormal biopsy result Family History Grandfather Cancer unknown type Grandmother Hypertension Ovarian cancer Paternal Grandfather Hypertension Grandmother Asthma Father Hypertension Social History adopted: No household members: spouse and children number of children: 2 current occupation: [employer] current occupational exposures/hazards: No pets and animals: [...] 1-2 times per week duration: 15-30 minutes/day gabriela/restorationist: Quaker seatbelt use: always do you feel safe at home: Yes 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 Normal [facility] Platelet countOrdered By: Merlin Knight on 01-27-2025 Platelets (Bld) [#/Vol] 163 10*3/uL 150-[address] [facility] RBC Auto (Bld) [#/Vol]Ordere d By: Jeanine Knight on 01-27-2025 RBC (Bld) [#/Vol] 4.39 10*6/uL 4.2-5.4 [facility] Syphilis Antibodieson 2024 Syphilis Abs Non-Reactive Normal Nonreactive [facility] Comment on above: Performed By: #### M 100.2200, L7000.1800 #### [facility] [address] [place], [place], [address] Type AND Screenon 01-27-2025 Ab SCREEN GEL Negative Normal [facility] Comment on above: Order Comment: PN Performed By: #### M 100.2200, L7000.1800 #### [facility] [address] [place], [place], [address] Urine cultureOrdered By: Gerard Knight on 01-27-2025 Bacteria identified Cx Nom (U) Mixed Gram Pos & Gram Neg Org Abnormal [facility] White blood cell (WBC) count Ordered By: Jeanine Knight on 01-27-2025 WBC (Bld) [#/Vol] 5.1 10*3/uL 4.4-11.0 [facility] ) -- HEATHER ANGEL ([id number]) 1995 F Date Time Provider Department 09/14/24 7:30 PM CEASARJEISONLEIA [facility] During your visit today, we recorded the following information about you: Temperature Pulse Respiration Blood pressure 99.2 degrees 112/minute 16/minute 110/72 Weight 64.3 kg Leia Mcdonough APRN.MOULDER OPERATOR 09/14/2024 7:54 PM Signed Subjective Male with complaints of itching rash all over her entire body. It is in different sections. Patient says she did use some new gain beads. Patient did eat fish that she does not normally eat. Patient denies any difficulty breathing or swallowing. Patient denies any other symptoms at this time. The history is provided by the patient. No language teacher was used. Rash Review of Systems Constitutional: [...] Patient agreeable to care plan. Leia Mcdonough APRN.MOULDER OPERATOR Allergies As of Date: 09/14/2024 (No Known Allergies) Date Reviewed: 09/14/2024 Reviewed by: Tova Ibrahim MA - Fully Assessed Reason for Visit: Rash [1087] Cmt: all over x 1 day Primary Visit Diagnosis:Sore throat [J02.9] Other Visit Diagnosis:Rash [R21] Order(s):STREP A MOLECULAR (POC) [5646012] Order #: [id number]. #:[id number] 1-LAB predniSONE (DELTASONE) 10 mg tabletTake 4 tabs daily for 3 days, then 2 tabs daily for 3 days, then 1 tab daily for 3 days with food.Disp: 21 tabletRfl: 0 famotidine (PEPCID) 20 mg tabletTake 1 tablet by mouth two times a day for 7 days.Disp: 14 tabletRfl: 0 LYME AB EARLY <=30 DAY SYMPTOMS [SQLMERLY] Order #: [id number] FUTURE Prescriptions as of 09/14/2024 - Docosahexanoic [...] Status:Closed by LEIA MCDONOUGH on 09/14/24 Normal [facility] STREP A MOLECULAR (POC)on Procedural Control Valid [facility] Strep A (POCT) Negative Negative [facility] Urine Cultureon 09-04-2024 [facility] Culture exhibits no growth. Normal [facility] Comment on above: Performed By: #### M 100.2200 #### [facility] [address] [place], [place], [address] Urgent Care Visit Reporton 0 09-03-2024 Urgent Care Visit Report [facility] [address] [facility] [address], [address] [place] [address] OFFICE VISIT Date of Service: 09/03/24 MR#: [id number] Acct: [id number] Name: HEATHER ANGEL Rep #: [id number] : 1995 Provider: HOWARD Zimmer Age/Sex: 29/F Location: [facility] Status: Signed Intake Vital Signs 06/08/24 08:55 09/03/24 06:10 Height 5 ft 3 in 5 ft 3 in BP 104/58 L Blood Pressure Location Lt brachial Position Sitting Respiration 14 Pulse 78 Pulse Source NIBP Temp 97.8 F Temp Source Oral Pulse Oximetry (%) 100 Oxygen Delivery Method room air Intake Visit Reasons: Urinary tract infection Chief Complaint: dysuria, urgency Rocket Test Fire Worker Required: No Is patient in pain?: No Allergies No Known Allergies Allergy (Verified 09/03/24 06:26) Is last menstrual period known: No Post menopausal: No Patient : No Have you fallen in the past year?: No Nurse's Note: dysuria, urgency since 0300. denies abd pain, back pain, fever, blood. 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 Family History Grandfather Cancer unknown type Grandmother Hypertension Ovarian cancer Paternal Grandfather Hypertension Grandmother Asthma Social History adopted: No household members: spouse and children number of children: 1 current occupational status: unemployed current occupation: [employer] pets and animals: Yes pets and animals: dog(s) history of recent travel: No sexually active: Yes Smoking Status: Never smoker alcohol intake: never substance use type: does not use well-balanced diet: daily or most days caffeine: No eating out: rarely or never during the past year weight has: decreased > 10 lbs what type of physical activity do you participate in: none gabriela/restorationist: Quaker seatbelt use: always do you feel safe at home: Yes 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 Normal [facility] Absolute lymphocyte countOrd ered By: Jeanine Knight on 04-28-2023 Lymphocytes Auto (Unsp spec) [#/Vol] 1.74 10*3/uL 0.83-4.[address] [facility] Basophil percentageOrdered B y: Jeanine Knight on 04-28-2023 Basophils/100 WBC (Bld) 0.3 % 0-[address] [facility] Eosinophils/100 WBC (Bld) 0.7 % 0-[address] [facility] Neutrophils (Bld) [#/Vol] 6.3 10*3/uL 2.0-7.[address] [facility] Neutrophils/100 WBC (Bld) 72.6 % 47-[address] [facility] WBC (Bld) [#/Vol] 8.7 10*3/uL 4.4-11.0 [facility] Blood erythrocytes count (nu mber/volume)Ordered By: Jeanine Knight on 04-28-2023 RBC (Bld) [#/Vol] 4.01 10*6/uL 4.2-5.4 [facility] Blood hemoglobin measurement (mass/volume)Ordered By: Jeanine Knight on 04-28-2023 Hemoglobin (Bld) [Mass/Vol] 11.8 g/dL 12.0-15.[address] [facility] Blood lymphocytes/100 leukoc ytesOrdered By: Jeanine Knight on 04-28-2023 Lymphocytes/100 WBC (Bld) 20.0 % 19-[address] [facility] Blood monocytes/100 leukocyt esOrdered By: Jeanine Knight on 04-28-2023 Monocytes/100 WBC (Bld) 5.9 % 0-[address] [facility] Blood platelet mean volumeOr dered By: Jeanine Knight on 04-28-2023 Platelet mean volume (Bld) [Entitic vol] 11.5 fL 6.2-12.[address] [facility] Determination of erythrocyte mean corpuscular volume (MCV)Ordered By: Jeanine Knight on 04-28-2023 MCV (RBC) [Entitic vol] 88.5 fL 81-[address] [facility] Hematocrit Auto (Bld) [Volum e fraction]Ordered By: Jeanine Knight on 04-28-2023 Hematocrit (Bld) [Volume fraction] 35.5 % 37-[address] [facility] Laboratory - Hematology and Cell countsOrdered By: Jeanine Knight on 04-28-2023 Erythrocyte distribution width (RBC) [Entitic vol] 39.4 fL 35.1-43.[address] [facility] Erythrocyte distribution width (RBC) [Ratio] 12.2 % 11.6-14.[address] [facility] Immature granulocytes/100 WBC (Bld) 0.500 % 0.0-0.[address] [facility] Comment on above: IG% - Immature Granu locytes (promyelocytes, myelocytes and metamyelocytes) > 1% indicates that a LEFT SHIFT is Present. MCH (RBC) [Entitic mass] 29.4 pg 27.0-32.[address] [facility] Nucleated RBC/100 WBC (Bld) [Ratio] 0 % 0-[address] [facility] MCHC Auto (RBC) [Mass/Vol]Or dered By: Jeanine Knight on 04-28-2023 MCHC (RBC) [Mass/Vol] 33.2 g/dL 32-36 [facility] Platelets bldOrdered By: Gerard Knight on 04-28-2023 Platelets (Bld) [#/Vol] 123 10*3/uL 150-[address] [facility] Laboratory - Chemistry and C hemistry - challengeon 04-22-2023 Glucose Ql (U) Negative [facility] Laboratory - Urinalysison Protein Ql (U) Negative [facility] Absolute lymphocyte countOrd ered By: Ana Wynne on 04-15-2023 Lymphocytes Auto (Unsp spec) [#/Vol] 1.90 10*3/uL 0.83-4.[address] [facility] Basophil percentageOrdered B y: Ana Wynne on 04-15-2023 Basophils/100 WBC (Bld) 0.3 % 0-[address] [facility] Eosinophils/100 WBC (Bld) 0.6 % 0-[address] [facility] Neutrophils (Bld) [#/Vol] 4.2 10*3/uL 2.0-7.[address] [facility] Neutrophils/100 WBC (Bld) 62.1 % 47-[address] [facility] WBC (Bld) [#/Vol] 6.8 10*3/uL 4.4-11.0 [facility] Blood erythrocytes count (nu mber/volume)Ordered By: Ana Wynne on 04-15-2023 RBC (Bld) [#/Vol] 3.97 10*6/uL 4.2-5.4 [facility] Blood hemoglobin measurement (mass/volume)Ordered By: Ana Wynne on 04-15-2023 Hemoglobin (Bld) [Mass/Vol] 11.8 g/dL 12.0-15.[address] [facility] Blood lymphocytes/100 leukoc ytesOrdered By: Ana Wynne on 04-15-2023 Lymphocytes/100 WBC (Bld) 27.9 % 19-[address] [facility] Blood monocytes/100 leukocyt esOrdered By: Ana Wynne on 04-15-2023 Monocytes/100 WBC (Bld) 8.4 % 0-[address] [facility] Blood platelet mean volumeOr dered By: Ana Wynne on 04-15-2023 Platelet mean volume (Bld) [Entitic vol] 10.9 fL 6.2-12.[address] [facility] Determination of erythrocyte mean corpuscular volume (MCV)Ordered By: Ana Wynne on 04-15-2023 MCV (RBC) [Entitic vol] 89.2 fL 81-[address] [facility] Hematocrit Auto (Bld) [Volum e fraction]Ordered By: Ana Wynne on 04-15-2023 Hematocrit (Bld) [Volume fraction] 35.4 % 37-[address] [facility] Laboratory - Chemistry and C hemistry - challengeon 04-15-2023 Glucose Ql (U) Negative [facility] Laboratory - Hematology and Cell countsOrdered By: Ana Wynne on 04-15-2023 Erythrocyte distribution width (RBC) [Entitic vol] 40.2 fL 35.1-43.[address] [facility] Erythrocyte distribution width (RBC) [Ratio] 12.3 % 11.6-14.[address] [facility] Immature granulocytes/100 WBC (Bld) 0.700 % 0.0-0.[address] [facility] Comment on above: IG% - Immature Granu locytes (promyelocytes, myelocytes and metamyelocytes) > 1% indicates that a LEFT SHIFT is Present. MCH (RBC) [Entitic mass] 29.7 pg 27.0-32.[address] [facility] Nucleated RBC/100 WBC (Bld) [Ratio] 0 % 0-[address] [facility] Laboratory - Urinalysison Protein Ql (U) Negative [facility] MCHC Auto (RBC) [Mass/Vol]Or dered By: Ana Wynne on 04-15-2023 MCHC (RBC) [Mass/Vol] 33.3 g/dL 32-36 [facility] No Panel InformationOrdered By: Ana Wynne on 04-15-2023 Group B Streptococcus Culture Group B Beta Streptococcus is not isolated. [facility] Platelets bldOrdered By: Honorio Wynne on 04-15-2023 Platelets (Bld) [#/Vol] 132 10*3/uL 150-[address] [facility] Basophil percentageOrdered B y: Jeanine Knight on 04-10-2023 Basophil percentage 0 SEEN /hpf 0-5 [facility] Bilirubin Test strip Ql (U)O rdered By: Jeanine Knight on 04-10-2023 Bilirubin Ql (U) Negative Negative [facility] Ketones Test strip Ql (U)Ord ered By: Jeanine Knight on 04-10-2023 Ketones Ql (U) Negative Negative [facility] Mucus LM Ql (Urine sed)Order ed By: Jeanine Knight on 04-10-2023 Mucus Ql (Urine sed) 0 SEEN /hpf [facility] Nitrite Test strip Ql (U)Ord ered By: Jeanine Knight on 04-10-2023 Nitrite Ql (U) Negative Negative [facility] Protein Test strip Ql (U)Ord ered By: Jeanine Knight on 04-10-2023 Protein Ql (U) Negative Negative [facility] Squamous epithelial cells de tection in urine sediment by light microscopyOrdered By: Jeanine Knight on 04-10-2023 Epithelial cells.squamous LM Ql (Urine sed) 0 SEEN /hpf 5-[address] [facility] Urine blood detectionOrdered By: Jeanine Knight on 04-10-2023 RBC Ql (U) Negative Negative [facility] RBC Ql (U) 0 SEEN /hpf 0-[address] [facility] Urine clarityOrdered By: Gerard Knight on 04-10-2023 Clarity (U) Clear Clear [facility] Urine color determinationOrd ered By: Jeanine Knight on 04-10-2023 Color (U) Yellow Yellow [facility] Urine glucose detectionOrder ed By: Jeanine Knight on 04-10-2023 Glucose Ql (U) Normal mg/dl Normal [facility] Urine leukocyte esterase det ection by dipstickOrdered By: Jeanine Knight on 04-10-2023 Leukocyte esterase Test strip Ql (U) 25 /ul Negative [facility] Urine pHOrdered By: Jeanine mcfarland on 04-10-2023 pH (U) 7.0 [pH] 5.0 - 8.[address] [facility] Urine sediment bacteria coun t by microscopy (number/high power field)Ordered By: Jeanine Knight on 04-10-2023 Bacteria LM.HPF (Urine sed) [#/Area] 0 /[HPF] None Seen [facility] Urine specific gravity measu rementOrdered By: Jeanine Knight on 04-10-2023 Specific gravity (U) [Rel density] 1.010 1.002-1.[address] [facility] Urobilinogen Auto test strip Ql (U)Ordered By: Jeanine Knight on 04-10-2023 Urobilinogen Ql (U) Normal mg/dl Normal [facility] Laboratory - Chemistry and C hemistry - challengeon 04-01-2023 Glucose Ql (U) Negative [facility] Laboratory - Urinalysison Protein Ql (U) Negative [facility] Absolute lymphocyte countOrd ered By: Aspen Morrison on 03-18-2023 Lymphocytes Auto (Unsp spec) [#/Vol] 1.52 10*3/uL 0.83-4.[address] [facility] Basophil percentageOrdered B y: Aspen Morrison on 03-18-2023 Basophils/100 WBC (Bld) 0.4 % 0-[address] [facility] Eosinophils/100 WBC (Bld) 1.5 % 0-[address] [facility] Neutrophils (Bld) [#/Vol] 4.6 10*3/uL 2.0-7.[address] [facility] Neutrophils/100 WBC (Bld) 68.1 % 47-[address] [facility] WBC (Bld) [#/Vol] 6.8 10*3/uL 4.4-11.0 [facility] Blood erythrocytes count (nu mber/volume)Ordered By: Aspen Morrison on 03-18-2023 RBC (Bld) [#/Vol] 4.00 10*6/uL 4.2-5.4 [facility] Blood hemoglobin measurement (mass/volume)Ordered By: Aspen Morrison on 03-18-2023 Hemoglobin (Bld) [Mass/Vol] 11.8 g/dL 12.0-15.[address] [facility] Blood lymphocytes/100 leukoc ytesOrdered By: Aspen Morrison on 03-18-2023 Lymphocytes/100 WBC (Bld) 22.3 % 19-[address] [facility] Blood monocytes/100 leukocyt esOrdered By: Aspen Morrison on 03-18-2023 Monocytes/100 WBC (Bld) 7.3 % 0-[address] [facility] Blood platelet mean volumeOr dered By: Aspen Morrison on 03-18-2023 Platelet mean volume (Bld) [Entitic vol] 10.7 fL 6.2-12.[address] [facility] Determination of erythrocyte mean corpuscular volume (MCV)Ordered By: Aspen Morrison on 03-18-2023 MCV (RBC) [Entitic vol] 89.3 fL 81-[address] [facility] Hematocrit Auto (Bld) [Volum e fraction]Ordered By: Aspen Morrison on 03-18-2023 Hematocrit (Bld) [Volume fraction] 35.7 % 37-[address] [facility] Laboratory - Chemistry and C hemistry - challengeon 03-18-2023 Glucose Ql (U) Negative [facility] Laboratory - Hematology and Cell countsOrdered By: Aspen Morrison on 03-18-2023 Erythrocyte distribution width (RBC) [Entitic vol] 39.7 fL 35.1-43.[address] [facility] Erythrocyte distribution width (RBC) [Ratio] 12.1 % 11.6-14.[address] [facility] Immature granulocytes/100 WBC (Bld) 0.400 % 0.0-0.[address] [facility] Comment on above: IG% - Immature Granu locytes (promyelocytes, myelocytes and metamyelocytes) > 1% indicates that a LEFT SHIFT is Present. MCH (RBC) [Entitic mass] 29.5 pg 27.0-32.[address] [facility] Nucleated RBC/100 WBC (Bld) [Ratio] 0 % 0-[address] [facility] Laboratory - Urinalysison Protein Ql (U) Negative [facility] MCHC Auto (RBC) [Mass/Vol]Or dered By: Aspen Morrison on 03-18-2023 MCHC (RBC) [Mass/Vol] 33.1 g/dL 32-36 [facility] Platelets bldOrdered By: Diana Morrison on 03-18-2023 Platelets (Bld) [#/Vol] 134 10*3/uL 150-[address] [facility] Laboratory - Chemistry and C hemistry - challengeon 03-04-2023 Glucose Ql (U) Negative [facility] Laboratory - Urinalysison Protein Ql (U) Negative [facility] Absolute lymphocyte countOrd ered By: Jeanine Knight on 02-18-2023 Lymphocytes Auto (Unsp spec) [#/Vol] 1.45 10*3/uL 0.83-4.[address] [facility] Basophil percentageOrdered B y: Jeanine Knight on 02-18-2023 Basophils/100 WBC (Bld) 0.7 % 0-[address] [facility] Eosinophils/100 WBC (Bld) 1.3 % 0-[address] [facility] Neutrophils (Bld) [#/Vol] 4.0 10*3/uL 2.0-7.[address] [facility] Neutrophils/100 WBC (Bld) 66.3 % 47-[address] [facility] WBC (Bld) [#/Vol] 6.1 10*3/uL 4.4-11.0 [facility] Blood erythrocytes count (nu mber/volume)Ordered By: Jeanine Knight on 02-18-2023 RBC (Bld) [#/Vol] 3.81 10*6/uL 4.2-5.4 [facility] Blood hemoglobin measurement (mass/volume)Ordered By: Jeanine Knight on 02-18-2023 Hemoglobin (Bld) [Mass/Vol] 11.4 g/dL 12.0-15.[address] [facility] Blood lymphocytes/100 leukoc ytesOrdered By: Jeanine Knight on 02-18-2023 Lymphocytes/100 WBC (Bld) 23.8 % 19-[address] [facility] Blood monocytes/100 leukocyt esOrdered By: Jeanine Knight on 02-18-2023 Monocytes/100 WBC (Bld) 7.1 % 0-[address] [facility] Blood platelet mean volumeOr dered By: Jeanine Knight on 02-18-2023 Platelet mean volume (Bld) [Entitic vol] 10.5 fL 6.2-12.[address] [facility] Determination of erythrocyte mean corpuscular volume (MCV)Ordered By: Jeanine Knight on 02-18-2023 MCV (RBC) [Entitic vol] 88.2 fL 81-[address] [facility] Gestational diabetes screen 1-hour screen with 50g oral glucose loadOrdered By: Jeanine Knight on 02-18-2023 Glucose 1 Hr post 50 g glucose PO [Mass/Vol] 106 mg/dL 70-[address] [facility] HIV 1 and HIV-2 antibody ass ay with HIV-1 p24 antigen detectionOrdered By: Jeanine Knight on 02-18-2023 HIV 1+2 Ab+HIV1 p24 Ag IA Ql Non-Reactive Nonreactive [facility] Hematocrit Auto (Bld) [Volum e fraction]Ordered By: Jeanine Knight on 02-18-2023 Hematocrit (Bld) [Volume fraction] 33.6 % 37-[address] [facility] Laboratory - Hematology and Cell countsOrdered By: Jeanine Knight on 02-18-2023 Erythrocyte distribution width (RBC) [Entitic vol] 38.8 fL 35.1-43.[address] [facility] Erythrocyte distribution width (RBC) [Ratio] 12.2 % 11.6-14.[address] [facility] Immature granulocytes/100 WBC (Bld) 0.800 % 0.0-0.[address] [facility] Comment on above: IG% - Immature Granu locytes (promyelocytes, myelocytes and metamyelocytes) > 1% indicates that a LEFT SHIFT is Present. MCH (RBC) [Entitic mass] 29.9 pg 27.0-32.[address] [facility] Nucleated RBC/100 WBC (Bld) [Ratio] 0 % 0-[address] [facility] MCHC Auto (RBC) [Mass/Vol]Or dered By: Jeanine Knight on 02-18-2023 MCHC (RBC) [Mass/Vol] 33.9 g/dL 32-36 [facility] Platelets bldOrdered By: Gerard Knight on 02-18-2023 Platelets (Bld) [#/Vol] 139 10*3/uL 150-[address] [facility] Serum Treponema species anti body detectionOrdered By: Jeanine Knight on 02-18-2023 Treponema sp Ab Ql (S) Non-Reactive [facility] Laboratory - Chemistry and C hemistry - challengeon 01-21-2023 Glucose Ql (U) Negative [facility] Laboratory - Urinalysison Protein Ql (U) Negative [facility] Laboratory - Chemistry and C hemistry - challengeon 12-24-2022 Glucose Ql (U) Negative [facility] Laboratory - Urinalysison Protein Ql (U) Negative [facility] Laboratory - Chemistry and C hemistry - challengeon 11-25-2022 Glucose Ql (U) Negative [facility] Laboratory - Urinalysison Protein Ql (U) Negative [facility] Laboratory - Chemistry and C hemistry - challengeon 10-29-2022 Glucose Ql (U) Negative [facility] Laboratory - Urinalysison Protein Ql (U) Negative [facility] Absolute lymphocyte countOrd ered By: Dr. Wynne on 10-01-2022 Lymphocytes Auto (Unsp spec) [#/Vol] 1.60 10*3/uL 0.83-4.[address] [facility] Basophil percentageOrdered B y: Dr. Wynne on 10-01-2022 Basophils/100 WBC (Bld) 0.8 % 0-[address] [facility] Eosinophils/100 WBC (Bld) 2.1 % 0-[address] [facility] Neutrophils (Bld) [#/Vol] 2.7 10*3/uL 2.0-7.[address] [facility] Neutrophils/100 WBC (Bld) 57.0 % 47-[address] [facility] WBC (Bld) [#/Vol] 4.8 10*3/uL 4.4-11.0 [facility] Blood erythrocytes count (nu mber/volume)Ordered By: Dr. Wynne on 10-01-2022 RBC (Bld) [#/Vol] 4.23 10*6/uL 4.2-5.4 [facility] Blood hemoglobin measurement (mass/volume)Ordered By: Dr. Wynne on 10-01-2022 Hemoglobin (Bld) [Mass/Vol] 12.2 g/dL 12.0-15.[address] [facility] Blood lymphocytes/100 leukoc ytesOrdered By: Dr. Wnyne on 10-01-2022 Lymphocytes/100 WBC (Bld) 33.4 % 19-[address] [facility] Blood monocytes/100 leukocyt esOrdered By: Dr. Wynne on 10-01-2022 Monocytes/100 WBC (Bld) 6.5 % 0-[address] [facility] Blood platelet mean volumeOr dered By: Dr. Wynne on 10-01-2022 Platelet mean volume (Bld) [Entitic vol] 10.2 fL 6.2-12.[address] [facility] Determination of erythrocyte mean corpuscular volume (MCV)Ordered By: Dr. Wynne on 10-01-2022 MCV (RBC) [Entitic vol] 84.2 fL 81-[address] [facility] HIV 1 and HIV-2 antibody ass ay with HIV-1 p24 antigen detectionOrdered By: Dr. Wynne on 10-01-2022 HIV 1+2 Ab+HIV1 p24 Ag IA Ql Non-Reactive Nonreactive [facility] Hematocrit Auto (Bld) [Volum e fraction]Ordered By: Dr. Wynne on 10-01-2022 Hematocrit (Bld) [Volume fraction] 35.6 % 37-[address] [facility] Laboratory - Chemistry and C hemistry - challengeon 10-01-2022 Glucose Ql (U) Negative [facility] Laboratory - Hematology and Cell countsOrdered By: Dr. Wynne on 10-01-2022 Erythrocyte distribution width (RBC) [Entitic vol] 36.5 fL 35.1-43.[address] [facility] Erythrocyte distribution width (RBC) [Ratio] 12.0 % 11.6-14.[address] [facility] Immature granulocytes/100 WBC (Bld) 0.200 % 0.0-0.[address] [facility] Comment on above: IG% - Immature Granu locytes (promyelocytes, myelocytes and metamyelocytes) > 1% indicates that a LEFT SHIFT is Present. MCH (RBC) [Entitic mass] 28.8 pg 27.0-32.[address] [facility] Nucleated RBC/100 WBC (Bld) [Ratio] 0 % 0-[address] [facility] Laboratory - Urinalysison Protein Ql (U) Negative [facility] MCHC Auto (RBC) [Mass/Vol]Or dered By: Dr. Wynne on 10-01-2022 MCHC (RBC) [Mass/Vol] 34.3 g/dL 32-36 [facility] No Panel InformationOrdered By: Dr. Wynne on 10-01-2022 Hepatitis B Surface Antigen Non-Reactive Nonreactive [facility] Hepatitis C Antibody Non-Reactive Nonreactive [facility] Comment on above: Non Reactive: < 0.8 Equivocal: >/= 0.8 to < 1.0 Reactive: >/= 1.0The CDC recommends that a reactive/equivocal HCV antibody result be followed up by the HCV Nucleic Acid Amplificationtest (046853) Rubella IgG Antibody Reactive Nonreactive [facility] Comment on above: Antibody Results Int erpretation of Immune Status Non Reactive Presumed Non-Immune Equivocal Equivocal Reactive Presumed Immune Platelets bldOrdered By: Dr. Wynne on 10-01-2022 Platelets (Bld) [#/Vol] 153 10*3/uL 150-[address] [facility] Serum Treponema species anti body detectionOrdered By: Dr. Wynne on 10-01-2022 Treponema sp Ab Ql (S) Non-Reactive [facility] Culture, urineOrdered By: Dr Thom Wynne on 09-18-2022 Bacteria identified Cx Nom (U) Culture exhibits no growth. [facility] Chlamydia trachomatis rRNA d etection by probe and target amplification methodOrdered By: Dr. Wynne on 09-16-2022 C. trachomatis rRNA AUDRA+probe Ql (Unsp spec) Negative Negative [facility] Laboratory - Microbiology an d Antimicrobial susceptibilityOrdered By: Dr. Wynne on 09-16-2022 N. gonorrhoeae DNA AUDRA+probe Ql (Unsp spec) Negative Negative [facility] Comment on above: Performed at: =[facility] [address] [id number] Director: Whitley Anthony MD, Phone: [phone] Culture, urineOrdered By: Dr Thom Wynne on 09-15-2022 Bacteria identified Cx Nom (U) Culture exhibits no growth. [facility] Laboratory - Chemistry and C hemistry - challengeon 09-12-2022 Bilirubin Ql (U) Negative [facility] Glucose Ql (U) Negative [facility] Ketones Ql (U) Negative [facility] Urobilinogen (U) [Mass/Vol] Negative [facility] Laboratory - Hematology and Cell countson 09-12-2022 Hemoglobin Ql (U) Negative [facility] Laboratory - Specimen inform ationon 09-12-2022 Clarity (U) Clear [facility] Color (U) YELLOW [facility] Laboratory - Urinalysison Nitrite Ql (U) Negative [facility] Protein Ql (U) Negative [facility] No Panel Informationon 09-12 Urine Leukocytes Positive [facility] Urine pH 6.0. [facility] Culture, urineOrdered By: St kanchan Jefferson on 09-04-2022 Bacteria identified Cx Nom (U) Escherichia coli [facility] Basophil percentageOrdered B y: Elijah Jefferson on 09-02-2022 Basophil percentage 50-100 SEEN /hpf 0-[address] [facility] Bilirubin Test strip Ql (U)O rdered By: Elijah Jefferson on 09-02-2022 Bilirubin Ql (U) Negative Negative [facility] Ketones Test strip Ql (U)Ord ered By: Elijah Jefferson on 09-02-2022 Ketones Ql (U) 50 mg/dl Negative [facility] Laboratory - Chemistry and C hemistry - challengeon 09-02-2022 HCG ( test) Ql (U) Positive [facility] Bilirubin Ql (U) Negative [facility] Glucose Ql (U) Negative [facility] Ketones Ql (U) Large (80+) [facility] pH (U) 6.0 [pH] [facility] Specific gravity (U) [Rel density] 1.[address] [facility] Urobilinogen (U) [Mass/Vol] Negative [facility] Laboratory - Hematology and Cell countson 09-02-2022 Hemoglobin Ql (U) Hemolyzed [facility] Laboratory - Specimen inform ationon 09-02-2022 Clarity (U) Cloudy [facility] Color (U) YELLOW [facility] Laboratory - Urinalysison Nitrite Ql (U) Negative [facility] Protein Ql (U) Negative [facility] Mucus LM Ql (Urine sed)Order ed By: Elijah Jefferson on 09-02-2022 Mucus Ql (Urine sed) 0 SEEN /hpf [facility] Nitrite Test strip Ql (U)Ord ered By: Elijah Jefferson on 09-02-2022 Nitrite Ql (U) Negative Negative [facility] No Panel Informationon 09-02 Urine Leukocytes Positive [facility] Urine Non-Hemolyzed Blood Small [facility] Protein Test strip Ql (U)Ord ered By: Elijah Jefferson on 09-02-2022 Protein Ql (U) 30 mg/dl Negative [facility] Squamous epithelial cells de tection in urine sediment by light microscopyOrdered By: Elijah Jefferson on 09-02-2022 Epithelial cells.squamous LM Ql (Urine sed) 0 SEEN /hpf 5-[address] [facility] Urine blood detectionOrdered By: Elijah Jefferson on 09-02-2022 RBC Ql (U) 10 /ul Negative [facility] RBC Ql (U) 0-5 SEEN /hpf 0-[address] [facility] Urine clarityOrdered By: Ari Jefferson on 09-02-2022 Clarity (U) Clear Clear [facility] Urine color determinationOrd ered By: Elijah Jefferson on 09-02-2022 Color (U) Yellow Yellow [facility] Urine glucose detectionOrder ed By: Elijah Jefferson on 09-02-2022 Glucose Ql (U) Normal mg/dl Normal [facility] Urine leukocyte esterase det ection by dipstickOrdered By: Elijah Jefferson on 09-02-2022 Leukocyte esterase Test strip Ql (U) 500 /ul Negative [facility] Urine pHOrdered By: Elijah cox on 09-02-2022 pH (U) 6.5 [pH] 5.0 - 8.[address] [facility] Urine sediment bacteria coun t by microscopy (number/high power field)Ordered By: Elijah Jefferson on 09-02-2022 Bacteria LM.HPF (Urine sed) [#/Area] 2 /[HPF] None Seen [facility] Urine specific gravity measu rementOrdered By: Elijah Jefferson on 09-02-2022 Specific gravity (U) [Rel density] 1.005 1.002-1.[address] [facility] Urobilinogen Auto test strip Ql (U)Ordered By: Elijah Jefferson on 09-02-2022 Urobilinogen Ql (U) Normal mg/dl Normal [facility] Absolute lymphocyte counton 11-15-2021 Lymphocytes Auto (Unsp spec) [#/Vol] 1.78 10*3/uL 0.83-4.[address] [facility] Work Phone: Basophil percentageon 2021 Basophils/100 WBC (Bld) 0.7 % 0-[address] [facility] Work Phone: Eosinophils/100 WBC (Bld) 3.3 % 0-[address] [facility] Work Phone: Neutrophils (Bld) [#/Vol] 1.9 10*3/uL 2.0-7.[address] [facility] Work Phone: Neutrophils/100 WBC (Bld) 45.7 % 47-[address] [facility] Work Phone: WBC (Bld) [#/Vol] 4.2 10*3/uL 4.4-11.0 [facility] Work Phone: Blood erythrocytes count (nu mber/volume)on 11-15-2021 RBC (Bld) [#/Vol] 4.26 10*6/uL 4.2-5.4 [facility] Work Phone: Blood hemoglobin measurement (mass/volume)on 11-15-2021 Hemoglobin (Bld) [Mass/Vol] 12.7 g/dL 12.0-15.[address] [facility] Work Phone: Blood lymphocytes/100 leukoc yteson 11-15-2021 Lymphocytes/100 WBC (Bld) 42.3 % 19-[address] [facility] Work Phone: Blood monocytes/100 leukocyt eson 11-15-2021 Monocytes/100 WBC (Bld) 7.8 % 0-[address] [facility] Work Phone: [phone] Blood platelet mean volumeon 11-15-2021 Platelet mean volume (Bld) [Entitic vol] 9.6 fL 6.2-12.[address] [facility] Work Phone: [phone] Determination of erythrocyte mean corpuscular volume (MCV)on 11-15-2021 MCV (RBC) [Entitic vol] 87.8 fL 81-[address] [facility] Work Phone: [phone] Hematocrit Auto (Bld) [Volum e fraction]on 11-15-2021 Hematocrit (Bld) [Volume fraction] 37.4 % 37-[address] [facility] Work Phone: [phone] Laboratory - Hematology and Cell countson 11-15-2021 Erythrocyte distribution width (RBC) [Entitic vol] 37.2 fL 35.1-43.[address] [facility] Work Phone: [phone] Erythrocyte distribution width (RBC) [Ratio] 11.5 % 11.6-14.[address] [facility] Work Phone: [phone] Immature granulocytes/100 WBC (Bld) 0.200 % 0.0-0.[address] [facility] Work Phone: [phone] Comment on above: IG% - Immature Granu locytes (promyelocytes, myelocytes and metamyelocytes) > 1% indicates that a LEFT SHIFT is Present. MCH (RBC) [Entitic mass] 29.8 pg 27.0-32.[address] [facility] Work Phone: [phone] Nucleated RBC/100 WBC (Bld) [Ratio] 0 % 0-[address] [facility] Work Phone: [phone] MCHC Auto (RBC) [Mass/Vol]on 11-15-2021 MCHC (RBC) [Mass/Vol] 34.0 g/dL 32-36 [facility] Work Phone: Platelets bldon 11-15-2021 Platelets (Bld) [#/Vol] 166 10*3/uL 150-[address] [facility] Work Phone: Absolute lymphocyte counton 10-03-2021 Lymphocytes Auto (Unsp spec) [#/Vol] 1.16 10*3/uL 0.83-4.[address] [facility] Work Phone: Basophil percentageon 2021 Basophils/100 WBC (Bld) 0.1 % 0-[address] [facility] Work Phone: Eosinophils/100 WBC (Bld) 0.1 % 0-[address] [facility] Work Phone: Neutrophils (Bld) [#/Vol] 13.9 10*3/uL 2.0-7.[address] [facility] Work Phone: Neutrophils/100 WBC (Bld) 85.2 % 47-[address] [facility] Work Phone: WBC (Bld) [#/Vol] 16.3 10*3/uL 4.4-11.0 [facility] Work Phone: Blood erythrocytes count (nu mber/volume)on 10-03-2021 RBC (Bld) [#/Vol] 3.19 10*6/uL 4.2-5.4 [facility] Work Phone: Blood hemoglobin measurement (mass/volume)on 10-03-2021 Hemoglobin (Bld) [Mass/Vol] 9.7 g/dL 12.0-15.[address] [facility] Work Phone: Blood lymphocytes/100 leukoc yteson 10-03-2021 Lymphocytes/100 WBC (Bld) 7.1 % 19-[address] [facility] Work Phone: Blood monocytes/100 leukocyt eson 10-03-2021 Monocytes/100 WBC (Bld) 6.9 % 0-[address] [facility] Work Phone: Blood platelet mean volumeon 10-03-2021 Platelet mean volume (Bld) [Entitic vol] 11.7 fL 6.2-12.[address] [facility] Work Phone: Determination of erythrocyte mean corpuscular volume (MCV)on 10-03-2021 MCV (RBC) [Entitic vol] 86.2 fL 81-[address] [facility] Work Phone: Hematocrit Auto (Bld) [Volum e fraction]on 10-03-2021 Hematocrit (Bld) [Volume fraction] 27.5 % 37-[address] [facility] Work Phone: [phone] Laboratory - Hematology and Cell countson 10-03-2021 Erythrocyte distribution width (RBC) [Entitic vol] 38.6 fL 35.1-43.[address] [facility] Work Phone: Erythrocyte distribution width (RBC) [Ratio] 12.2 % 11.6-14.[address] [facility] Work Phone: Immature granulocytes/100 WBC (Bld) 0.600 % 0.0-0.[address] [facility] Work Phone: Comment on above: IG% - Immature Granu locytes (promyelocytes, myelocytes and metamyelocytes) > 1% indicates that a LEFT SHIFT is Present. MCH (RBC) [Entitic mass] 30.4 pg 27.0-32.[address] [facility] Work Phone: Nucleated RBC/100 WBC (Bld) [Ratio] 0 % 0-[address] [facility] Work Phone: MCHC Auto (RBC) [Mass/Vol]on 10-03-2021 MCHC (RBC) [Mass/Vol] 35.3 g/dL 32-36 [facility] Work Phone: Platelets bldon 10-03-2021 Platelets (Bld) [#/Vol] 124 10*3/uL 150-[address] [facility] Work Phone: No Panel Informationon 10-01 SARS-CoV-2 Antigen (Rapid) [facility] Work Phone: Vaginal Amniotic Fluid Detection Positive Negative [facility] Work Phone: Comment on above: Amniotic fluid prese nt indicates rupture of Membranes. RESULTS CALLED TO MACHO MARIN RN WP 10/01/[id number] Ever Khalil.REPORT READ BACK BY SAME . Laboratory - Chemistry and C hemistry - challengeon 09-25-2021 Glucose Ql (U) Negative [facility] Work Phone: Laboratory - Urinalysison Protein Ql (U) Negative [facility] Work Phone: Laboratory - Chemistry and C hemistry - challengeon 09-18-2021 Glucose Ql (U) Negative [facility] Work Phone: Laboratory - Urinalysison Protein Ql (U) Negative [facility] Work Phone: Laboratory - Chemistry and C hemistry - challengeon 09-12-2021 Glucose Ql (U) Negative [facility] Work Phone: Laboratory - Urinalysison Protein Ql (U) Negative [facility] Work Phone: No Panel Informationon 09-04 Group B Streptococcus Culture Group B Beta Streptococcus is not isolated. [facility] Work Phone: Laboratory - Chemistry and C hemistry - challengeon 08-21-2021 Glucose Ql (U) Negative [facility] Work Phone: Laboratory - Urinalysison Protein Ql (U) Negative [facility] Work Phone: Absolute lymphocyte counton 08-07-2021 Lymphocytes Auto (Unsp spec) [#/Vol] 1.34 10*3/uL 0.83-4.[address] [facility] Work Phone: Basophil percentageon 2020 Eosinophils/100 WBC (Bld) 1.4 % 0-[address] [facility] Work Phone: Neutrophils (Bld) [#/Vol] 5.7 10*3/uL 2.0-7.[address] [facility] Work Phone: [phone] WBC (Bld) [#/Vol] 8.0 10*3/uL 4.4-11.0 [facility] Work Phone: [phone] Blood erythrocytes count (nu mber/volume)on 08-07-2021 RBC (Bld) [#/Vol] 3.99 10*6/uL [facility]2-5.4 [facility]: [phone] Blood hemoglobin measurement (mass/volume)on 08-07-2021 Hemoglobin (Bld) [Mass/Vol] 11.3 g/dL 12.0-15.[address] [facility] Work Phone: Blood lymphocytes/100 leukoc yteson 08-07-2021 Lymphocytes/100 WBC (Bld) 16.9 % 19-[address] [facility] Work Phone: Blood monocytes/100 leukocyt eson 08-07-2021 Monocytes/100 WBC (Bld) 7.9 % 0-[address] [facility] Work Phone: [phone] Blood platelet mean volumeon 08-07-2021 Platelet mean volume (Bld) [Entitic vol] 10.6 fL 6.2-12.[address] [facility] Work Phone: Determination of erythrocyte mean corpuscular volume (MCV)on 08-07-2021 MCV (RBC) [Entitic vol] 88.2 fL 81-[address] [facility] Work Phone: [phone] Hematocrit Auto (Bld) [Volum e fraction]on 08-07-2021 Hematocrit (Bld) [Volume fraction] 35.2 % 37-[address] [facility] Work Phone: [phone] Laboratory - Chemistry and C hemistry - challengeon 08-07-2021 Glucose Ql (U) Negative [facility] Work Phone: [phone] Laboratory - Hematology and Cell countson 08-07-2021 Basophils/100 WBC (Unsp spec) 0.4 % 0-[address] [facility] Work Phone: [phone] Erythrocyte distribution width (RBC) [Entitic vol] 39.9 fL 35.1-43.[address] [facility] Work Phone: [phone] Erythrocyte distribution width (RBC) [Ratio] 12.5 % 11.6-14.[address] [facility] Work Phone: [phone] Immature granulocytes/100 WBC (Bld) 1.800 % 0.0-0.[address] [facility] Work Phone: [phone] Comment on above: IG% - Immature Granu locytes (promyelocytes, myelocytes and metamyelocytes) > 1% indicates that a LEFT SHIFT is Present. MCH (RBC) [Entitic mass] 28.3 pg 27.0-32.[address] [facility] Work Phone: Neutrophils/100 WBC (Bld) 71.6 % 47-[address] [facility] Work Phone: Nucleated RBC/100 WBC (Bld) [Ratio] 0 % 0-[address] [facility] Work Phone: [phone] Laboratory - Urinalysison Protein Ql (U) Negative [facility] Work Phone: [phone] MCHC Auto (RBC) [Mass/Vol]on 08-07-2021 MCHC (RBC) [Mass/Vol] 32.1 g/dL 32-36 [facility] Work Phone: [phone] Platelets bldon 08-07-2021 Platelets (Bld) [#/Vol] 142 10*3/uL 150-[address] [facility] Work Phone: Laboratory - Chemistry and C hemistry - challengeon 07-25-2021 Glucose Ql (U) Negative [facility] Work Phone: [phone] Laboratory - Urinalysison Protein Ql (U) Negative [facility] Work Phone: Vital Signs Date Time Vital Sign Value Performing Clinician Facility 05-19-2025 12:53-0400 Body height 160.[address] Ada Garcia MD Work Phone: [facility] 05-19-2025 12:53-0400 Body mass index (BMI) [Ratio] 28.2 kg/m2 Dr. Ada Garcia MD Work Phone: [phone] [address] [place] [address] 05-19-2025 12:53-0400 Body weight 72.[address] Ada Garcia MD Work Phone: [phone])651-320592 [place] [address] 05-19-2025 12:53-0400 Diastolic blood pressure 67 mm[Hg] Dr. Ada Garcia MD Work Phone: 8(881)380-057092 [place] [address] 05-19-2025 12:53-0400 Systolic blood pressure 114 mm[Hg] Dr. Ada Garcia MD Work Phone: 1(397)991-675892 [place] [address] 04-20-2025 10:09-0400 Body height 160.[address] Ada Garcia MD Work Phone: 6(079)050-816692 [place] [address] 04-20-2025 10:04-0400 Body mass index (BMI) [Ratio] 26.9 kg/m2 Dr. Ada Garcia MD Work Phone: 9(501)445-485592 [place] [address] 04-20-2025 10:04-0400 Body weight 69.[address] Ada Garcia MD Work Phone: 8(816)867-328492 [place] [address] 04-20-2025 10:04-0400 Diastolic blood pressure 77 mm[Hg] Dr. Ada Garcia MD Work Phone: 4(312)076-995792 [place] [address] 04-20-2025 10:04-0400 Systolic blood pressure 120 mm[Hg] Dr. Ada Garcia MD Work Phone: 2(281)420-023592 [place] [address] 03-23-2025 10:38-0400 Body height 160.[address] Ada Garcia MD Work Phone: 6(974)289-383892 [place] [address] 03-23-2025 10:36-0400 Body mass index (BMI) [Ratio] 26.1 kg/m2 Dr. Ada Garcia MD Work Phone: 3(703)914-165892 [place] [address] 03-23-2025 10:36-0400 Body weight 66.[address] Ada Garcia MD Work Phone: [phone])200-823592 [place] [address] 03-23-2025 10:36-0400 Diastolic blood pressure 70 mm[Hg] Dr. Ada Garcia MD Work Phone: 1(757)391-898634 [address] [place] [address] 03-23-2025 10:36-0400 Systolic blood pressure 123 mm[Hg] Dr. Ada Garcia MD Work Phone: 2(096)309-743934 [address] [place] [address] 02-24-2025 15:20-0400 Body height 160.[address] Ada Garcia MD Work Phone: 4([phone])237-247192 [place] [address] 02-24-2025 15:20-0400 Body mass index (BMI) [Ratio] 25.4 kg/m2 Dr. Ada Garcia MD Work Phone: 1(799)959-179792 [place] [address] 02-24-2025 15:20-0400 Body weight 65.[address] Ada Garcia MD Work Phone: 5(132)651-171992 [place] [address] 02-24-2025 15:20-0400 Diastolic blood pressure 75 mm[Hg] Dr. Ada Garcia MD Work Phone: 0(988)681-101092 [place] [address] 02-24-2025 15:20-0400 Systolic blood pressure 119 mm[Hg] Dr. Ada Garcia MD Work Phone: 2(431)392-700092 [place] [address] 01-27-2025 10:32-0400 Body height 160.[address] Ada Garcia MD Work Phone: 6(475)413-728892 [place] [address] 01-27-2025 10:32-0400 Body mass index (BMI) [Ratio] 25.2 kg/m2 Dr. Ada Garcia MD Work Phone: 6(650)999-931234 [place] [address] 01-27-2025 10:32-0400 Body weight 64.[address] Ada Garcia MD Work Phone: 3(539)256-858792 [place] [address] 01-27-2025 10:32-0400 Diastolic blood pressure 75 mm[Hg] Dr. Ada Garcia MD Work Phone: 8(190)144-736592 [place] [address] 01-27-2025 10:32-0400 Systolic blood pressure 115 mm[Hg] Dr. Ada Garcia MD Work Phone: 2(535)266-297592 [place] [address] 09-14-2024 19:35-0500 Body temperature 99.19 [degF] Leia Ceasar WHITFIELD.MOULDER OPERATOR Work Phone: [facility] 09-14-2024 19:35-0500 Body weight 64.3 kg Leia Mcdonough APRN.MOULDER OPERATOR Work Phone: [facility] 09-14-2024 19:35-0500 Diastolic blood pressure 72 mm[Hg] Leia Mcdonough APRN.MOULDER OPERATOR Work Phone: [facility] 09-14-2024 19:35-0500 Heart rate 112 /min Leia Mcdonough APRN.MOULDER OPERATOR Work Phone: [facility] 09-14-2024 19:35-0500 Respiratory rate 16 /min Leiapriyanka Mcdonough APRN.MOULDER OPERATOR Work Phone: [facility] 09-14-2024 19:35-0500 SaO2% (BldA) [Mass fraction] 98 % Leia Mcdonough APRN.MOULDER OPERATOR Work Phone: [facility] 09-14-2024 19:35-0500 Systolic blood pressure 110 mm[Hg] Leia Ceasar WHITFIELD.MOULDER OPERATOR Work Phone: [facility] 04-29-2023 08:45-0400 Body temperature 97.6 [degF] MD Ada Garcia [facility] 04-29-2023 08:45-0400 Diastolic blood pressure 75 mm[Hg] MD Ada Garcia [facility] 04-29-2023 08:45-0400 Heart rate 52 /min MD Ada Garcia [facility] 04-29-2023 08:45-0400 Respiratory rate 16 /min MD Ada Garcia [facility] 04-29-2023 08:45-0400 SaO2% (BldA) [Mass fraction] 99 % MD Ada Garcia [facility] 04-29-2023 08:45-0400 Systolic blood pressure 115 mm[Hg] MD Ada Garcia [facility] 04-28-2023 02:29-0400 Body height 160.02 cm MD Ada Garcia [facility] 04-28-2023 02:29-0400 Body mass index (BMI) [Ratio] 31.2 kg/m2 MD Ada Garcia [facility] 04-28-2023 02:29-0400 Body weight 80.01 kg MD Ada Garcia [facility] 04-22-2023 09:59-0400 Body mass index (BMI) [Ratio] 31.4 kg/m2 MD Ada Garcia [facility] 04-22-2023 09:59-0400 Body weight 80.34 kg MD Ada Garcia [facility] 04-22-2023 09:59-0400 Diastolic blood pressure 74 mm[Hg] MD Ada Garcia [facility] 04-22-2023 09:59-0400 Systolic blood pressure 108 mm[Hg] MD Ada Garcia [facility] 04-15-2023 11:01-0400 Body height 160.02 cm MD Ada Garcia [facility] 04-15-2023 10:58-0400 Body mass index (BMI) [Ratio] 31 kg/m2 MD Ada Garcia [facility] 04-15-2023 10:58-0400 Body weight 79.54 kg MD Ada Garcia [facility] 04-15-2023 10:58-0400 Diastolic blood pressure 71 mm[Hg] MD Ada Garcia [facility] 04-15-2023 10:58-0400 Systolic blood pressure 111 mm[Hg] MD Ada Garcia [facility] 04-10-2023 19:25-0400 Body temperature 98.4 [degF] MD Ada Garcia [facility] 04-10-2023 19:24-0400 Diastolic blood pressure 82 mm[Hg] MD Ada Garcia [facility] 04-10-2023 19:24-0400 Heart rate 106 /min MD Ada Garcia [facility] 04-10-2023 19:24-0400 Systolic blood pressure 129 mm[Hg] MD Ada Garcia [facility] 04-10-2023 17:41-0400 Body height 160.02 cm MD Ada Garcia [facility] 04-10-2023 17:41-0400 Body mass index (BMI) [Ratio] 30.4 kg/m2 MD Ada Garcia [facility] 04-10-2023 17:41-0400 Body weight 78 kg MD Ada Garcia [facility] 04-01-2023 09:22-0400 Body mass index (BMI) [Ratio] 30.3 kg/m2 MD Ada Garcia [facility] 04-01-2023 09:22-0400 Body weight 77.67 kg MD Ada Garcia [facility] 04-01-2023 09:22-0400 Diastolic blood pressure 71 mm[Hg] MD Ada Garcia [facility] 04-01-2023 09:22-0400 Systolic blood pressure 117 mm[Hg] MD Ada Garcia [facility] 03-18-2023 11:03-0400 Body height 160.02 cm MD Ada Garcia [facility] 03-18-2023 11:03-0400 Body mass index (BMI) [Ratio] 29.9 kg/m2 MD Ada Garcia [facility] 03-18-2023 11:03-0400 Body weight 76.65 kg MD Ada Garcia [facility] 03-18-2023 11:03-0400 Diastolic blood pressure 74 mm[Hg] MD Ada Garcia [facility] 03-18-2023 11:03-0400 Systolic blood pressure 118 mm[Hg] MD Ada Garcia [facility] 03-04-2023 10:00-0400 Body mass index (BMI) [Ratio] 29.2 kg/m2 MD Ada Garcia [facility] 03-04-2023 10:00-0400 Body weight 75.01 kg MD Ada Garcia [facility] 03-04-2023 10:00-0400 Diastolic blood pressure 68 mm[Hg] MD Ada Garcia [facility] 03-04-2023 10:00-0400 Systolic blood pressure 106 mm[Hg] MD Ada Garcia [facility] 02-18-2023 14:11-0400 Body height 160.02 cm MD Ada Garcia [facility] 02-18-2023 14:11-0400 Body mass index (BMI) [Ratio] 29.2 kg/m2 MD Ada Garcia [facility] 02-18-2023 14:11-0400 Body weight 74.84 kg MD Ada Garcia [facility] 02-18-2023 14:11-0400 Diastolic blood pressure 72 mm[Hg] MD Ada Garcia [facility] 02-18-2023 14:11-0400 Systolic blood pressure 130 mm[Hg] MD Ada Garcia [facility] 01-21-2023 10:00-0400 Body height 160.02 cm MD Ada Garcia [facility] 01-21-2023 10:00-0400 Body mass index (BMI) [Ratio] 28.5 kg/m2 MD Ada Garcia [facility] 01-21-2023 10:00-0400 Body weight 73.08 kg MD Ada Garcia [facility] 01-21-2023 10:00-0400 Diastolic blood pressure 65 mm[Hg] MD Ada Garcia [facility] 01-21-2023 10:00-0400 Systolic blood pressure 102 mm[Hg] MD Ada Garcia [facility] 12-24-2022 09:09-0400 Body mass index (BMI) [Ratio] 27.8 kg/m2 MD Ada Garcia [facility] 12-24-2022 09:09-0400 Body weight 71.21 kg MD Ada Garcia [facility] 12-24-2022 09:09-0400 Diastolic blood pressure 72 mm[Hg] MD Ada Garcia [facility] 12-24-2022 09:09-0400 Systolic blood pressure 115 mm[Hg] MD Ada Garcia [facility] 11-25-2022 09:49-0400 Body mass index (BMI) [Ratio] 26.4 kg/m2 MD Ada Garcia [facility] 11-25-2022 09:49-0400 Body weight 67.58 kg MD Ada Garcia [facility] 11-25-2022 09:49-0400 Diastolic blood pressure 70 mm[Hg] MD dAa Garcia [facility] 11-25-2022 09:49-0400 Systolic blood pressure 132 mm[Hg] MD Ada Garcia [facility] 10-29-2022 08:32-0500 Body mass index (BMI) [Ratio] 26.2 kg/m2 MD Ada Garcia [facility] 10-29-2022 08:32-0500 Body weight 67.18 kg MD Ada Garcia [facility] 10-29-2022 08:32-0500 Diastolic blood pressure 72 mm[Hg] Ada Radha [facility] 10-29-2022 08:32-0500 Systolic blood pressure 132 mm[Hg] [facility] Radha [facility] 10-01-2022 08:36-0500 [facility].02 [facility]-01-2022 08:36-0500 Body mass index (BMI) [Ratio] 25.8 kg/m2 [facility] 10-01-2022 08:36-0500 Body weight 66.22 [facility] 10-01-2022 08:36-0500 Diastolic blood pressure 75 mm[Hg] [facility] 10-01-2022 08:36-0500 Systolic blood pressure 122 mm[Hg] [facility] 09-16-2022 09:19-0500 Body height 160.02 cm [facility] 09-16-2022 09:18-0500 Body mass index (BMI) [Ratio] 25.3 kg/m2 [facility] 09-16-2022 09:18-0500 Body weight 64.86 kg [facility] 09-16-2022 09:18-0500 Diastolic blood pressure 73 mm[Hg] [facility] 09-16-2022 09:18-0500 Systolic blood pressure 123 mm[Hg] [facility] 09-12-2022 14:17-0500 Body height 160.02 cm [facility] 09-12-2022 14:17-0500 Body mass index (BMI) [Ratio] 26 kg/m2 [facility] 09-12-2022 14:17-0500 Body weight 66.67 kg [facility] 09-12-2022 14:17-0500 Diastolic blood pressure 72 mm[Hg] [facility] 09-12-2022 14:17-0500 Systolic blood pressure 107 mm[Hg] [facility] 09-02-2022 16:46-0500 Body mass index (BMI) [Ratio] 25.8 kg/m2 [facility] 09-02-2022 16:46-0500 Body temperature 97.8 [degF] [facility] 09-02-2022 16:46-0500 Body weight 66.22 kg [facility] 09-02-2022 16:46-0500 Diastolic blood pressure 66 mm[Hg] [facility] 09-02-2022 16:46-0500 Heart rate 132 /min [facility] 09-02-2022 16:46-0500 Respiratory rate 14 /min [facility] 09-02-2022 16:46-0500 SaO2% (BldA) [Mass fraction] 99 % [facility] 09-02-2022 16:46-0500 Systolic blood pressure 118 mm[Hg] [facility] 11-15-2021 10:03-0400 Body height 162.56 cm [facility] Work Phone: 11-15-2021 10:03-0400 Body mass index (BMI) [Ratio] 27.8 kg/m2 [facility] Work Phone: 11-15-2021 10:03-0400 Body weight 73.48 kg [facility] Work Phone: 11-15-2021 10:03-0400 Diastolic blood pressure 70 mm[Hg] [facility] Work Phone: 11-15-2021 10:03-0400 Systolic blood pressure 106 mm[Hg] MD [facility] Work Phone: 10-04-2021 08:45-0500 Body temperature 98.3 [degF] [facility] Work [facility]: 10-04-2021 08:45-0500 Diastolic blood pressure 70 mm[Hg] [facility] Work Phone: 10-04-2021 08:45-0500 Heart rate 101 /min [facility] Work Phone: 10-04-2021 08:45-0500 Respiratory rate 18 /min [facility] Work Phone: 10-04-2021 08:45-0500 Systolic blood pressure 116 mm[Hg] [facility] Work Phone: 10-04-2021 01:26-0500 SaO2% (BldA) [Mass fraction] 99 % [facility] Work Phone: 10-01-2021 20:20-0500 Body mass index (BMI) [Ratio] 33.3 kg/m2 MD [facility] Work Phone: 10-01-2021 20:20-0500 Body weight 85.27 kg [facility] Work Phone: 09-25-2021 07:59-0500 Body mass index (BMI) [Ratio] 33.5 kg/m2 [facility] Work Phone: 09-25-2021 07:59-0500 Body weight 85.72 kg MD [facility] Work Phone: 09-25-2021 07:59-0500 Diastolic blood pressure 82 mm[Hg] MD Caballero [facility] Work Phone: 09-25-2021 07:59-0500 Systolic blood pressure 130 mm[Hg] [facility] Work Phone: 09-18-2021 08:21-0500 Body mass index (BMI) [Ratio] 32.5 kg/m2 [facility] Work Phone: 09-18-2021 08:21-0500 Body weight 83.46 kg [facility] Work Phone: 09-18-2021 08:21-0500 Diastolic blood pressure 80 mm[Hg] [facility] Work Phone: 09-18-2021 08:21-0500 Systolic blood pressure 124 mm[Hg] [facility] Work Phone: 09-12-2021 10:51-0500 Body mass index (BMI) [Ratio] 32.6 kg/m2 [facility] Work Phone: 09-12-2021 10:51-0500 Body weight 83.63 kg [facility] Work Phone: 09-12-2021 10:51-0500 Diastolic blood pressure 70 mm[Hg] [facility] Work Phone: 09-12-2021 10:51-0500 Systolic blood pressure 100 mm[Hg] [facility] Work Phone: 09-04-2021 08:19-0500 Body mass index (BMI) [Ratio] 32.4 kg/m2 [facility] Work Phone: 09-04-2021 08:19-0500 Body weight 83 kg [facility] Work Phone: 09-04-2021 08:19-0500 Diastolic blood pressure 70 mm[Hg] [facility] Work Phone: 09-04-2021 08:19-0500 Systolic blood pressure 122 mm[Hg] MD Caballero [facility] Work Phone: 08-21-2021 12:48-0500 Body mass index (BMI) [Ratio] 32.2 kg/m2 [facility] Work Phone: 08-21-2021 12:48-0500 Body weight 82.55 kg [facility] Work Phone: 08-21-2021 12:48-0500 Diastolic blood pressure 80 mm[Hg] [facility] Work Phone: 08-21-2021 12:48-0500 Systolic blood pressure 136 mm[Hg] [facility] Work Phone: 08-07-2021 08:44-0500 Body mass index (BMI) [Ratio] 30.9 kg/m2 [facility] Work Phone: 08-07-2021 08:44-0500 Body weight 79.37 kg [facility] Work Phone: 08-07-2021 08:44-0500 Diastolic blood pressure 60 mm[Hg] [facility] Work Phone: 08-07-2021 08:44-0500 Systolic blood pressure 122 mm[Hg] [facility] Work Phone: 07-25-2021 07:49-0500 Body mass index (BMI) [Ratio] 30.6 kg/m2 [facility] Work Phone: 07-25-2021 07:49-0500 Body weight 78.47 kg [facility] Work Phone: 07-25-2021 07:49-0500 Diastolic blood pressure 86 mm[Hg] MD Ada Garcia [facility] Work Phone: 07-25-2021 07:49-0500 Systolic blood pressure 136 mm[Hg] MD Ada Garcia [facility] Work Phone: Encounters Encounter Date Encounter Type Care Provider Facility Start: 06-09-2025 End: 06-09-2025 ambulatory Ada Garcia [facility] Start: 06-09-2025 End: 06-09-2025 ambulatory Jeanine Knight Facility:[facility] Start: 05-19-2025 End: 05-19-2025 Patient encounter procedure Aspen SCANLON -[facility] Work Phone: Start: 05-19-2025 End: 05-19-[address] Ada Garcia MD Work Phone: -[facility] Start: 04-20-2025 End: 04-20-2025 Patient encounter procedure Aspen Morrison NP-C -[facility] Work Phone: Start: 04-20-2025 End: 04-20-[address] Ada Garcia MD Work Phone: -[facility] Start: 04-19-2025 End: 04-19-2025 ambulatory JORGE LUIS OCHOA APRN-MOULDER OPERATOR Facility:[facility] Start: 04-19-2025 End: 04-19-2025 Patient encounter procedure JORGE LUIS OCHOA MERCANTILE AGENT-MOULDER OPERATOR [facility] Start: 04-14-2025 End: 04-14-[address] Ada Garcia MD Work Phone: [facility] Start: 04-14-2025 End: 04-14-2025 Patient encounter procedure Jeanine Knight CNM -[facility] Work Phone: Start: 04-14-2025 End: 04-14-2025 ambulatory Jeanine Eugene Facility:[facility] Start: 03-23-2025 End: 03-23-[address] Serenity Luna DO -[facility] Work Phone: Start: 03-23-2025 End: 03-23-[address] Ada Garcia MD Work Phone: -[facility] Start: 02-24-2025 End: 02-24-[address] Ana Wynne MD -[facility] Work Phone: Start: 02-24-2025 End: 02-24-[address] Ada Garcia MD Work Phone: [facility] Start: 01-27-2025 End: 01-27-2025 Patient encounter procedure Jeanine NAPOLES -[facility] Work Phone: Start: 01-27-2025 End: 01-27-[address] Ada Garcia MD Work Phone: [facility] Work Phone: Start: 01-27-2025 End: 01-27-2025 ambulatory Jeanine Knight Facility:[facility] Start: 01-14-2025 Non-patient / Non-visit Kiah Farias RN -[facility] Work Phone: Start: 01-14-2025 ambulatory Ada Garcia Facility: [facility] Start: 09-14-2024 End: 09-14-2024 ambulatory ADA GARCIA Facility:[facility] Start: 09-14-2024 End: 09-14-2024 Patient encounter procedure Leia Mcdonough APRN.CNP Work Phone: [facility] Comment on above: Sore throat (Primary Dx); Rash Start: 09-03-2024 End: 09-03-2024 ambulatory Ada Garcia Facility:[facility] Start: 09-03-2024 End: 09-03-2024 ambulatory Ada Garcia Facility:[facility] Start: 04-29-2023 Non-patient / Non-visit MD Ada THAPA [facility] Start: 04-28-2023 Non-patient / Non-visit MD Ada THAPA [facility] Start: 04-28-2023 End: 04-29-2023 Evaluation and management of inpatient MD Ada THAPA [facility] Work Phone: Start: 04-22-2023 End: 04-22-2023 Patient encounter procedure MD Ada THAPA [facility] Work Phone: Start: 04-15-2023 End: 04-15-2023 ambulatory MD Ada Garcia [facility] Work Phone: Start: 04-15-2023 End: 04-15-2023 Patient encounter procedure MD Ada THAPA [facility] Work Phone: Start: 04-10-2023 Non-patient / Non-visit MD Ada THAPA [facility] Start: 04-10-2023 End: 04-10-2023 ambulatory MD Ada Garcia [facility] Work Phone: Start: 04-10-2023 End: 04-10-2023 Patient encounter procedure MD Ada THAPA [facility] Outpatients Work Phone: Start: 04-01-2023 End: 04-01-2023 Patient encounter procedure MD Ada THAPA [facility] Work Phone: Start: 03-18-2023 End: 03-18-2023 ambulatory MD Ada THAPA [facility] Work Phone: Start: 03-18-2023 End: 03-18-2023 ambulatory MD Ada Garcia [facility] Work Phone: Start: 03-18-2023 End: 03-18-2023 Patient encounter procedure MD Ada THAPA [facility] Work Phone: Start: 03-04-2023 End: 03-04-2023 Patient encounter procedure MD Ada THAPA [facility] Work Phone: Start: 02-18-2023 End: 02-18-2023 Patient encounter procedure MD Ada THAPA [facility] Work Phone: Start: 02-18-2023 End: 02-18-2023 ambulatory MD Ada THAPA [facility] Work Phone: Start: 02-18-2023 End: 02-18-2023 Patient encounter procedure MD Ada THAPA [facility] Work Phone: Start: 01-21-2023 End: 01-21-2023 ambulatory MD Ada Garcia [facility] Work Phone: Start: 01-21-2023 End: 01-21-2023 Patient encounter procedure MD Ada THAPA [facility]-Ultrasound, [facility] Start: 01-21-2023 End: 01-21-2023 Patient encounter procedure MD Ada THAPA [facility] Start: 12-24-2022 End: 12-24-2022 Patient encounter procedure MD Ada THAPA [facility] Start: 12-12-2022 End: 12-12-2022 ambulatory SERENITY BELL [facility] Start: 11-25-2022 End: 11-25-2022 Patient encounter procedure MD Ada THAPA [facility] Start: 10-29-2022 End: 10-29-2022 Patient encounter procedure MD Ada THAPA [facility] Start: 10-01-2022 End: 10-01-2022 ambulatory MD Ada Garcia [facility] Work Phone: Start: 10-01-2022 End: 10-01-2022 Patient encounter procedure MD Caballero [facility] Start: 09-16-2022 End: 09-16-2022 ambulatory MD Ada Palmer [facility] Work Phone: Start: 09-16-2022 End: 09-16-2022 Patient encounter procedure MD Caballero [facility]-Laboratory, Specimen Start: 09-16-2022 End: 09-16-2022 Patient encounter procedure [facility] Start: 09-12-2022 End: 09-12-2022 ambulatory MD Ada Palmer [facility] Work Phone: Start: 09-12-2022 End: 09-12-2022 Patient encounter procedure MD Caballero [facility]-Laboratory, Specimen Start: 09-12-2022 End: 09-12-2022 Patient encounter procedure MD Caballero [facility] Start: 09-02-2022 End: 09-02-2022 ambulatory MD Ada Palmer [facility] Work Phone: Start: 09-02-2022 End: 09-02-2022 Patient encounter procedure MD Caballero [facility]-Laboratory, Specimen Start: 09-02-2022 End: 09-02-2022 Patient encounter procedure MD Caballero [facility] Start: 02-24-2022 ambulatory Rosanna Ramirez APRN.CNP Work Phone: Telemedicine Comment on above: UTI symptoms (Primar y Dx) Start: 11-15-2021 End: 11-15-2021 Patient encounter procedure MD Caballero [facility]atory, [facility] Start: 10-04-2021 Non-patient / Non-visit MD Caballero [facility] Start: 10-03-2021 Non-patient / Non-visit MD Caballero [facility] Start: 10-02-2021 Non-patient / Non-visit MD Ada Garcia [facility] Start: 10-01-2021 End: 10-04-2021 Evaluation and management of inpatient MD Ada Garcia [facility] Start: 09-25-2021 End: 09-25-2021 Patient encounter procedure MD Ada Garcia [facility] Start: 09-18-2021 End: 09-18-2021 Patient encounter procedure MD Ada Garcia [facility] Start: 09-12-2021 End: 09-12-2021 [facility] Start: 09-04-2021 End: 09-04-2021 [facility] Start: 09-04-2021 End: 09-04-2021 Patient encounter procedure MD Caballero [facility] Start: 08-21-2021 End: 08-21-2021 Patient encounter procedure MD Caballero [facility] Start: 08-10-2021 [facility] Start: 08-07-2021 End: 08-07-2021 Patient encounter procedure MD Caballero [facility] Start: 07-25-2021 End: 07-25-2021 Patient encounter procedure MD Caballero [facility] Procedures Date Procedure Procedure Detail Performing Clinician [...] HCV Quant by PCR testing - HCVPCR #[id number] Non Reactive: < 0.8 Equivocal: >/= 0.8 [...] AARON 30.0 Detection Limit = 1.0Performed at: [address] [id number] Director: Brian Olivares PhD, Phone: [phone] Start: 01-27-[address] Ada Garcia MD Work Phone: Comment on above: Antibody Result: Int erpretationNon-Reactive: Non- ImmuneReactive: ImmuneThe following results were obtained with the [employer] Rubella IgG assay. Results from assays of other manufacturers cannot be used interchangeably. Start: 01-27-2025 Serologic test for syphilis Dr. Ada Garcia MD Work Phone: Start: 09-14-2024 STREP A MOLECULAR (POC) Leia Mcdonough APRN.[facility] Work Phone: Start: 04-15-2023 Group B Streptococcu [...] P,Tdap,Td Vaccine (4 - Td or Tdap) [facility] Start: 05-19-2025 Measurement of gluco se 2 hours after glucose challenge for glucose tolerance test [facility] Start: 05-19-2025 Serologic test for syphilis [facility] Start: 05-19-2025 [facility] Start: 01-27-2025 CBC W Auto Different ial panel - Blood [facility] Start: 01-27-2025 Hepatitis C antibody measurement [facility] Start: 01-27-2025 Lead measurement, quantitative, blood [facility] Start: 01-27-2025 Rubella IgG measurement [facility] Start: 01-27-2025 Serologic test for syphilis [facility] Start: 01-27-2025 [facility] Start: 01-27-2025 Chlamydia deoxyribon ucleic acid detection [facility] Start: 09-14-2024 End: 12-14-2024 Borrelia burgdorferi IgG and IgM panel - Serum LYME AB EARLY <=30 DAY SYMPTOMS Lab Routine Rash Expected: 09/14/2024, Expires: 12/14/2024 [facility] Work Phone: Comment on above: Expected: 09/14/2024 , Expires: 12/14/2024 Start: 04-25-2024 Covid-19 Vaccine ( season) Covid-19 Vaccine () [facility] Start: 04-25-2024 Influenza vaccination Influenza Vacc ine (#1) [facility] Start: 04-29-2023 Patient discharge [facility] Start: 04-28-2023 Administration of bl ood product [facility] Start: 04-28-2023 Administration of medication [facility] Start: 04-28-2023 Application of ice c ollar, cap or bag [facility] Start: 04-28-2023 Catheterization of vein [facility] Start: 04-28-2023 Introduction of urin quin catheter [facility] Start: 04-28-2023 Measuring intake and output [facility] Start: 04-28-2023 Notification of physician [facility] Start: 04-28-2023 Procedure discontinued [facility] Start: 04-28-2023 Provision of activit y privileges [facility] Start: 04-28-2023 Vital signs measurements [facility] Start: 04-28-2023 [facility] Start: 04-28-2023 Admission procedure [facility] Start: 04-10-2023 Nonstress test [facility] Start: 04-10-2023 Obstetric monitoring [facility] Start: 04-10-2023 Vital signs measurements [facility] Start: 04-10-2023 [facility] Start: 04-10-2023 Patient discharge [facility] Start: 09-12-2022 [facility] Start: 04-25-2022 Influenza vaccination INFLUENZA (#1) [facility] Start: 2017 PAP TESTING PAP TESTING [facility] Start: 2017 Screening for malign ant neoplasm of cervix Cervical Cancer Screening [facility] Start: 2015 Hepatitis B Vaccine (1 of 3 - 19+ 3-dose series) Hepatitis B Vaccine (1 of 3 - 19+ 3-dose series) [facility] Start: 2015 Urine microalbumin profile DTAP,TDAP ,TD (1 - Tdap) [facility] Start: 2014 Anxiety Screening Anxiety Screening [facility] Start: 2014 Depression Screening Depression Scre ening [facility] Start: 2014 HEPATITIS C SCREENING HEPATITIS C [facility] Start: 2014 Hepatitis C screening Hepatitis C [facility] Start: 2014 HIV SCREENING HIV SCREENING [facility] Start: 2014 HIV screening HIV Screening [facility] Start: 2010 PEDS TO ADULT TRANSI TION ANNUAL ASSESSMENT PEDS TO ADULT TRANSITION ANNUAL ASSESSMENT [facility] Start: 2008 Adult depression scr eening assessment DEPRESSION SCREENING [facility] Start: 2008 PEDS TO ADULT TRANSI TION INITIAL DISCUSSION PEDS TO ADULT TRANSITION INITIAL DISCUSSION [facility] Start: 2007 HPV VACCINE (1 - 2-d ose series) HPV VACCINE (1 - 2-dose series) [facility] Start: 2006 MENINGOCOCCAL B: Con chief guard based on risk (1 of 2 - Risk Bexsero 2-dose series) MENINGOCOCCAL B: Consider based on risk (1 of 2 - Risk Bexsero 2-dose series) [facility] Start: 1996 COVID-19 VACCINE (#1) COVID-19 VACCI NE (#1) [facility] ABO and Rh group [Ty pe] in Blood [facility] Bacteria identified in Urine by Culture [facility] Bacteria identified in Urine by Culture Urine Culture [facility] CBC W Auto Different ial panel - Blood [facility] CBC W Auto Different ial panel - Blood [facility] CBC W Auto Different ial panel - Blood [facility] Chlamydia deoxyribon ucleic acid detection [facility] Erythrocyte mean corpuscular volume determination [facility] Glucose [Mass/volume ] in Serum or Plasma --1 hour post 50 g glucose PO [facility] Hematocrit [Volume Fraction] of Blood [facility] Hemoglobin [Mass/vol ume] in Blood [facility] Hepatitis B surface antigen measurement [facility] Hepatitis B virus urbina rface Ag [Presence] in Serum [facility] Hepatitis C antibody measurement [facility] HIV 1+2 Ab+HIV1 p24 Ag [Presence] in Serum or Plasma by Immunoassay [facility] HIV 1+2 Ab+HIV1 p24 Ag [Presence] in Serum or Plasma by Immunoassay [facility] Leukocytes [#/volume ] in Blood [facility] Mean corpuscular hemoglobin concentration determination [facility] Mean corpuscular hemoglobin determination [facility] Neisseria gonorrhoea e rRNA [Presence] in Unspecified specimen by AUDRA with probe detection [facility] Neutrophil count [facility] Neutrophil percent differential count [facility] Patient Education Kick Counts ED False Labor OB Triage: Return to Hospital or Notify Physician if you Experience: [facility] Work Phone: Patient referral [facility] Work Phone: PCR test for Chlamyd ia trachomatis [facility] Platelets [#/volume] in Blood [facility] Red blood cell count [facility] Red cell distributio n width determination [facility] Rubella IgG measurement [facility] Treponema sp Ab [Pre sence] in Serum [facility] Treponema sp Ab [Pre sence] in Serum [facility] Treponema sp Ab [Pre sence] in Serum [facility] [place] [place] [facility] [place] Immunization Date Immunization Notes Care Provider Fa cility 02-18-2023 tetanus toxoid, redu vira diphtheria toxoid, and acellular pertussis vaccine, adsorbed MD Ada THAPA [facility] 10-03-2021 measles, mumps and rubella virus vaccine MD Caballero antonio [facility] 10-03-2021 measles/mumps/rubell a virus vaccine JORGE LUIS THOMSON [facility] 07-11-2021 tetanus toxoid, redu vira diphtheria toxoid, and acellular pertussis vaccine, adsorbed MD Ada Garcia [facility] 07-11-2021 diphtheria, tetanus toxoids and acellular pertussis vaccine, unspecified formulation MD Ada Garcia [facility] Work Phone: Payers Date Payer Category Payer Unknown [id number] 2025 Unknown [id number] 2024 Self-pay [id number] 2024 Unknown DAMIEN SAHU O ZULEIMA [id number] 2024-Present [phone] [address] [place] [address] [facility] [id number] 2024 Unknown [id number] 2024 Private Health Insurance [id number] 2016 Unknown DAMIEN ALVARADO PPO [id number] 2016-Present [phone] [address] [place] [address] PPO [id number] 1996 Unknown [id number]. [id number] 1996 Unknown [id number]. 627 Unknown SELF PAY INSURANCE [id number] Unknown [id number] Unknown [id number] Unknown [id number] Unknown [facility] PACKAGE PLAN . [id number] Unknown [id number] 462 Unknown [id number]. 462 Unknown [id number] [id number]. 462 Unknown [id number] 2.16.840.1.446236.3.579.2. 462 Unknown [id number] 2.16.840.1.497949.3.579.2. 462 Unknown [id number] 2.16840.1.040129.3.579.2. 462 Unknown [id number] 2.16.840.1.373068.3.579.2. 462 Unknown [id number] [id number]. 462 Unknown [id number] [id number]. 462 Unknown [id number] [id number]. 462 Unknown [id number] [id number]. 462 Unknown [id number] [id number]. 462 Unknown [id number]. 462 Social History Date Type Detail Facility Start: 11-15-2021 End: 04-28-2023 Tobacco smoking status NMIS Unknown if ever smoked [facility] Start: 1995 Sex Assigned At Female [facility] Start: 12-16-2017 End: 01-14-2025 Tobacco smoking status NMIS Never smoked tobacco [facility] Start: 12-16-2017 End: 09-14-2024 Tobacco use and exposure Smokeless tobacco non-user [facility] Start: 1995 Sex Assigned At Not on file [facility] Start: 08-02-2020 End: 09-14-2024 History of Social function [facility] Start: 08-02-2020 End: 09-14-2024 Tobacco use panel [facility] National Score (1-10 0), lower number is lower risk Not on file [facility] Sexual Orientation Sara Ruiz [place] Sex Female (finding) Sara Cope [facility] Goals Date Patient Goal Desired Activity /State Clinical Notes 02-24-2022 to 05-19-2025 Note Date & Type Note Facility 05-19-2025 Progress note [facility] 04-14-2025 Radiology Diagnostic study note [facility] Services [address] [place] [address] OB Anatomy w/ Transvaginal MR#: [id number] Acct: [id number] Name: HEATHER ANGEL Rep #: [id number] : 1995 F 30 From: Delfin Bliss MD PCP: Dr. Ada Garcia MD Status: REG CLI Study:OB Anatomy w/ Transvaginal Date of Exam : 04/14/25 Exam# [id number] Ordering Dr: Jeanine Knight CNM PROCEDURE: OB [...] of 19 weeks and 6days. Reading Location: [id number] CC: MAX Knight; Dr. Ada Garcia MD ~ Pharmacy District Manager: Signed [facility] 03-23-2025 Progress note [facility] 02-24-2025 Progress note [facility] 02-24-2025 Progress note Note Date/Time February 24, 2025 3:34pm [facility] [address], [address] [place] [address] OFFICE VISIT Date of Service: 02/24/25 MR#: [id number] Acct: [id number] Name: HEATHER ANGEL Rep #: [id number] : 1995 Provider: Dr. Elpidio Wynne MD Age/Sex: 29/F Location: [place] Status: Signed Intake Vital Signs 09/03/24 06:10 01/27/25 10:32 02/24/25 15:20 Height 5 ft 3 in 5 ft 3 in 5 ft 3 in Weight: 144 lb BMI 25.4 BP 119/75 Intake Visit Reasons: 13wk OB Rocket Test Fire Worker Required: No Is patient in pain?: No Allergies No Known Allergies Allergy (Verified 02/24/25 15:23) Medications ?Medication ?Instructions ?Recorded ?Confirmed ?Type PNV no.151-iron 27 mg-folic 800 cap PO 09/10/22 History mcg-omega3 260 nu-gzc-ybn-fish capsule omega-3 fatty acids 600 mg PO DAILY 04/10/2311/16 History Last Menstrual Period: 11/24/24 Zika: Zika virus screening: Negative : No PFSH PFSH Medical History Galactosemia Biotinidase deficiency Abnormal biopsy result Family History Grandfather Cancer unknown type Grandmother Hypertension Ovarian cancer Paternal Grandfather Hypertension Grandmother Asthma Father Hypertension Social History adopted: No household members: spouse and children number of children: 2 current occupation: [employer] current occupational exposures/hazards: No pets and animals: [...] 1-2 times per week duration: 15-30 minutes/day gabriela/restorationist: Quaker seatbelt use: always do you feel safe at home: Yes 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 History 5 Elective abortions 0 Hx Para [...] term 9lbs 11oz Male 23 ep idural [facility] SM Bam 04/28/23 Iveth Alba 38 live - full term [id number] Female epidural [facility] Rayna Knight Bam Delivery Date: 10/02/21 Last Updated by: Chacha Farmer SROM 40w SM [place] Delivery Date: 04/28/23 Last Updated by: Sharda NUNEZ HPI 13wk OB Details: HEATHER ANGEL is [...] Movement Monitoring, Signs and Symptoms of Preeclampsia, [place] Education and Intimate Partner Violence; Discussed Depression [...] Acute Comment: PRR, ; RONEY 08/31/24; PC: [place]a; : Bam (6) : Status: Acute Qualifiers: [...] Cosigner Signature: Date (if applicable) CC: ~ [facility] Work Phone: 1(479) 420-763406-05-2025 Evaluation note* Diagnosis Onset Date Resolution Status Admit Date Biotinidase deficiency acute 2024 10:17am Galactosemia acute January 27 10:17am History of miscarriage, curr ently acute January 27, 2025 1 0:17am History of thrombocytopenia acute January 27, 2025 10:17am Lead exposure acute January 27, 2 025 10:17am acute January 27, 2025 10:17am Rh negative status during acute January 27, 2025 1 0:17am Supervision of high-risk a cute January 27, 2025 10:17am [facility] Work Phone: 1(514) 349-205906-05-2025 Evaluation note* Diagnosis Onset Date Resolution Status Admit Date Biotinidase deficiency acute 2024 10:17am Galactosemia acute January 27 10:17am History of miscarriage, curr ently acute January 27, 2025 1 0:17am History of thrombocytopenia acute January 27, 2025 10:17am Lead exposure acute January 27, 025 10:17am acute January 27, 2025 10:17am Rh negative status during acute January 27, 2025 1 0:17am Supervision of high-risk a cute January 27, 2025 10:17am Biotinidase deficiency acute 2024 3:17pm Galactosemia acute February 24 3:17pm History of miscarriage, curr ently acute February 24, 2025 3 :17pm History of thrombocytopenia acute February 24, 2025 3:17pm Lead exposure acute February 24, 2 025 3:17pm acute February 24, 2025 3:17pm Rh negative status during acute February 24, 2025 3 :17pm Supervision of high-risk a cute February 24, 2025 3:17pm [facility] Work Phone: 1(989) 265-658706-05-2025 Evaluation note* Diagnosis Onset Date Resolution Status [...] January 27, 2025 10:17am Biotinidase deficiency acute 2024 3:17pm Galactosemia acute February 24 3:17pm History of miscarriage, curr ently acute February 24, 2025 3 :17pm History of thrombocytopenia acute February 24, 2025 3:17pm Lead exposure acute February 24 3:17pm acute February 24, 2025 3:17pm Rh negative status during acute February 24, 2025 3 :17pm Supervision of high-risk a cute February 24, 2025 3:17pm Biotinidase deficiency acute Ju 2024 10:27am Galactosemia acute March 23, 10:27am History of miscarriage, curr ently acute March 23, 2025 10:27am History of thrombocytopenia acute March 23, 2025 10:27am Lead exposure acute March 23, 2025 10:27am acute March 23 10:27am Rh negative status during acute March 23, 2025 10:27am Supervision of high-risk a cute March 23, 2025 10:27am [facility] Work Phone: 1(732) 993-519006-05-2025 Evaluation note* Diagnosis Onset Date Resolution Status [...] 27, 2025 1 0:17am Biotinidase deficiency acute Ju 2024 3:17pm Galactosemia [...] 24, 2025 3 :17pm Biotinidase deficiency acute 2024 10:27am Galactosemia acute March 23, 2 025 10:27am History of miscarriage, curr ently acute March 23, 2025 10:27am History of thrombocytopenia acute March 23, 2025 10:27am Lead exposure acute March 23, 2025 10:27am acute March 23 10:27am Rh negative status during acute March 23, 2025 10:27am Supervision of high-risk acute March 23, 2025 10:27am Biotinidase deficiency acute Au 2024 9:59am Galactosemia acute April 20, 2025 9:59am History of miscarriage, curr ently acute April 20 9:59am History of thrombocytopenia acute April 20, 2025 9:59am Lead exposure acute March 9:59am acute April 20 025 9:59am Rh negative status during acute April 20 9:59am Supervision of high-risk acute April 20 9:59am [facility] Work Phone: 1([phone]) 560-415706-05-2025 Evaluation note* Diagnosis Onset Date Resolution Status [...] acute Ju 2024 10:27am Galactosemia acute March 23 10:27am History of miscarriage, currently acute March 23 10:27am History of thrombocytopenia acute March 23, 2025 10:27am Lead exposure acute March 23, 2025 10:27am acute March 23 10:27am Rh negative status during acute March 23, 2025 10:27am Supervision of high-risk acute March 23, 2025 10:27am Biotinidase deficiency acute Au 2024 9:59am Galactosemia acute April 20, 2025 9:59am History of miscarriage, currently acute April 20, 2025 9:59am History of thrombocytopenia acute April 20, 2025 9:59am Lead exposure acute March 9:59am acute April 20 9:59am Rh negative status during acute April 20 9:59am Supervision of high-risk acute April 20 9:59am Biotinidase deficiency acute 2024 12:50pm Galactosemia acute May 192024 12:50pm History of miscarriage, currently acute April 12:50pm History of thrombocytopenia acute May 19, 2025 12:50pm Lead exposure acute April 262024 12:50pm acute April 12:50pm Rh negative status during acute May 19, 2025 12:50pm Supervision of high-risk acute May 19, 2025 12:50pm [facility] Work Phone: [phone]) 477-371406-05-2025 Progress [facility] [address] [place] [address], [address] [place] [address] OFFICE VISIT Date of Service: 01/27/25 MR#: [id number] Acct: [id number] Name: HEATHER ANGEL Rep #: [id number] : 1995 Provider: MAX Knight Age/Sex: 29/F Location: [place] Status: Signed Intake Vital Signs 09/03/24 06:10 01/27/25 10:32 Height 5 ft 3 in 5 ft 3 in Weight: 142 lb 6 oz BMI 25.2 BP 115/75 Intake Visit Reasons: NOB LMP 4/2 Chief Complaint: New OB Rocket Test Fire Worker Required: No Is patient in pain?: No Allergies No Known Allergies Allergy (Verified 01/27/25 10:30) Medications ?Medication ?Instructions ?Recorded ?Confirmed ?Type PNV no.151-iron 27 mg-folic 800 cap PO 09/10/22 History mcg-omega3 260 fm-ojn-hzc-fish capsule omega-3 fatty acids 600 mg PO DAILY 04/10/2301/16 History Last Menstrual Period: 11/24/24 PFSH PFSH Medical History Galactosemia Biotinidase deficiency Abnormal biopsy result Family History Grandfather Cancer unknown type Grandmother Hypertension Ovarian cancer Paternal Grandfather Hypertension Grandmother Asthma Father Hypertension Social History adopted: No household members: spouse and children number of children: 2 current occupation: [employer] current occupational exposures/hazards: No pets and animals: [...] 1-2 times per week duration: 15-30 minutes/day gabriela/restorationist: Quaker seatbelt use: always do you feel safe at home: Yes 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 History 5 Elective abortions 0 Hx Para [...] term 9lbs 11oz Male 23 ep idural [facility] SM Bam 04/28/23 Iveth Alba 38 live - full term [id number] Female epidural [facility] Rayna Knight Bam Delivery Date: 10/02/21 [...] transfusions, Pulmonary (e.g.,TB,Asthma), Seasonal allergies, Drug/latex allergies/reactions, Link Knitting Machine Operator surgery, Operations/hospitalizations, Anesthetic complications, History of abnormal [...] patient chose: [ ] 01/27/25 1101 s MAX> Date Tamara Knight CNM Cosigner Signature: Date (if applicable) CC: ~ [facility] [id number] NoteHNO ID: [id number] Author: LEIA MCDONOUGH APRN.[facility] Service: ? Author Type: Nurse Practitioner [...] history is provided by the patient. No language teacher was used. Rash Review of Systems Constitutional: [...] Patient agreeable to care plan. Leia Mcdonough APRN.[facility]01-21-2025 History of Present illness Narrative* Leia Mcdonough APRN.[facility] - 09/14/2024 7:39 PM EST Images from [...] history is provided by the patient. No language teacher was used. Rash Review of Systems Constitutional: [...] Patient agreeable to care plan. Leia Mcdonough APRN.MOULDER [facility]PERATOR [facility] Progress note Author Ana Wynne [facility] April 29, 2023 6:10am Note Date/Time April 29, 2023 6:10am [facility] Medical Records Department [address] [place] [address] Progress Note - OBGYN 04/29/23 0609 MR#: [id number] Acct: [id number] Name: HEATHER ANGEL Rep #:[id number] : 1995 28 From: Ana valera MD PCP: Dr. Ada Garcia MD Status:ADM IN Location: [id number] Subjective Subjective Patient doing well without complaints. [...] trimester; D69.6 - Thrombocytopenia, unspecified COMMENT: 02/18:139. 7/25:135. Rpt 36wk (3) Vaginal delivery: COMMENT: KW 38.3 IAL girl PLAN: Plan s/p PPD # 1 1. routine post delivery care 2. breast feeding- support given 3. rh negative 4. rubella immune 04/29/23 0610 <Electronically signed by Ana Wynne MD> Cosigner Signature (if applicable): CC: ~ Signed [facility] Work Phone: 1(439) 914-148209-04-2023 Discharge summary Author Jeanine Knight [facility] April 28, 2023 5:34am Note Date/Time April 28, 2023 5:[address] [facility] Medical Records Department [address] [place] [address] Instructions for Home/Discharge Instructions 04/28/23 0534 MR#: [id number] Acct: [id number] Name: HEATHER ANGEL Rep #:[id number] : 1995 From: Jeanine Knight CNM PCP: Dr. Ada Garica MD Status:ADM IN Discharge Instructions Diet Discharge [...] Ada Garcia Discharge Orders/Prescriptions Prescriptions: No Action KOX081-jqru-MG-g2-eod-ljp-mhcd 27 mg iron-800 mcg-260 mg capsule PO [...] CC: Dr. Ada Garcia MD ~ Signed [facility] Work Phone: [phone]) 420-130009-04-[address] [facility] 04-28-2023 History and physical note Author Jeanine Knight [facility] April 28, 2023 3:12am Note Date/Time April 28, 2023 3:[address] [facility] Medical Records Department [address] [place] [address] H&P Exam - GLUE COOK 04/28/23 0309 MR#: [id number] Acct: [id number] Name: HEATHER ANGEL Rep #:[id number] : 1995 28 From: Jeanine Knight CNM PCP: Dr. Ada Garcia MD Status:ADM IN Location: [id number] HPI - General General Date of Admission: [...] US >20 weeks Gestational age: 38.3 weeks PFSH PFS Medical History (Updated 04/28/23 @ 03:12 by Jeanine Knight CNM) Biotinidase deficiency Galactosemia Thrombocytopenia affecting Urinary tract infection with hematuria Home Medications PNV no.151-iron 27 mg-folic 800 mcg-omega3 260 kq-kce-vnh-fish capsule cap PO 09/10/22 [History Last Taken [...] 1 current occupational status: unemployed current occupation: [employer] pets and animals: Yes pets and animals: dog(s) history of recent travel: No sexually active: Yes Smoking Status: Never smoker alcohol intake: never substance use type: does not use well-balanced diet: daily or most days caffeine: No eating out: rarely or never during the past year weight has: decreased > 10 lbs what type of physical activity do you participate in: none gabriela/restorationist: Quaker seatbelt use: always do you feel safe at home: Yes 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 Date Name GA/Weeks Outcome Route Bth Weight Infant Gen Labor Lgth Anesthesia Del Locatn Provider FOB Unknown 11/2020 spontaneous Unknown 12/2020 spontaneous Unknown 08/2021 Jacen 40 live - full term 9lbs 11oz Male 23 epidural [facility] SM Delivery Date: Last Updated by: Chacha Farmre SROM 40w [facility] Visit Details Expected Delivery Route/Plan Labor Preferences- [...] trimester; D69.6 - Thrombocytopenia, unspecified COMMENT: 02/18:139. 03/18:135. Rpt 36wk (2) Placental abnormality: QUALIFIERS: Trimester: [...] Supervision of high risk , antepartum: COMMENT: [id number], RONEY 05/09/23, LYNDA Macdonald, Bam (6) : QUALIFIERS: Weeks of gestation: 37 weeks Qualified Code(s): Z3A.37 - 37 weeks gestation of COMMENT: GBS neg,discussed genetic & carrier testing (7) Urinary tract infection with hematuria: (8) Active labor: PLAN: Patient presents IAL, plan expectant management for , pitocin/AROM PRN if needed. Pain management: plans epidural. GBS negative. Management of any complications: thrombocytopenia I have reviewed the [facility] and made any clinically relevant updates. Charges/Coding Multi Select Codes Urinary/Genital Urinary/Genital CPT Codes: No Charge 09/04/23 0312 <Electronically signed by Jeanine Knight CNM> Cosigner Signature (if applicable): CC: MAX Knight; Dr. Ada Garcia MD~ Signed [facility] Work Phone: 1([phone]) [phone] History of Present illness Narrative* Rosanna Ramirez [...] patient Rosanna Ramirez APRN.CNP documented [facility] encounter[facility]Evaluation [facility] note No data available for this section [facility] Evaluation note* Diagnosis Onset Date Resolution Status [...] risk , antepartum resolved Vaginal delivery resolved [facility] Work Phone: Evaluation note* Diagnosis UTI symptoms- Primary Other symptoms involving urinary system documented [facility] this encounter [facility] Diagnosis Onset Date Resolution Status acute Urinary tract infection with hematuria acute Urinary tract infection with hematuria acute [facility] Work Phone: Evaluation note* Diagnosis Onset Date Resolution Status acute Urinary tract infection with hematuria acute Urinary tract infection with hematuria acute History of miscarriage, currently acute acute Rh negative state in antepartum period acute Supervision of high risk , antepartum acute Urinary tract infection with hematuria [facility] Work Phone: Evaluation note* Diagnosis Onset Date Resolution Status acute [...] acute Urinary tract infection with hematuria acute [facility] Work Phone: Evaluation note* Diagnosis Onset [...] antepartum acute Urinary tract infection with hematuria [facility] Work Phone: evaluation note* Diagnosis Onset [...] antepartum acute Urinary tract infection with hematuria [facility] Work Phone: evaluation note* Diagnosis Onset [...] Supervision of high risk , antepartum acute [facility] Work Phone: evaluation note* Diagnosis Onset [...] Supervision of high risk , antepartum acute [facility] Work Phone: evaluation note* Diagnosis Onset [...] acute Urinary tract infection with hematuria acute [facility] Work Phone: Evaluation note* Diagnosis Onset [...] resolved Urinary tract infection with hematuria resolved [facility] Work Phone: Evaluation note* Diagnosis Sore throat- Primary Acute pharyngitis Rash Rash and other nonspecific skin eruption documented in this encounter [facility] Diagnosis Onset Date Resolution Status Admit Date Biotinidase deficiency acute Ju 2024 10:17am Galactosemia acute January 27 10:17am History of miscarriage, curr ently acute January 27, 2025 1 0:17am History of thrombocytopenia acute January 27, 2025 10:17am Lead exposure acute January 27, 2 025 10:17am acute January 27, 2025 10:17am Rh negative status during acute January 27, 2025 1 0:17am Supervision of high-risk a steffen January 27, 2025 10:17am [facility] Work Phone: Hospital Discharge instructions No data available for this section [facility] Progress note Author Jeanine Knight [facility] April 10, 2023 7:40pm Note Date/Time April 10, 2023 7: 41pm [facility] Medical Records Department [address] [place] [address] OB Triage Progress Note 04/10/231933 MR#: [id number] Acct: [id number] Name: HEATHER ANGEL Rep #:[id number] : 1995 28 From: Jeanine Knight CNM PCP: Dr. Ada Garcia MD Status:REG CLI Y DOS: Location: [place] [address] Progress Notes Date of Service: 04/10/23 Progress Note: Patient presents for triage evaluation secondary to contractions FHT: 150 Moderate variability reactive no decelerations category I tracing Dandridge: mild Contractions-resolved with oral hydration Assessment and plan: Reactive NST, reassuring maternal and status patientdischarged to home to follow-up at next appointment. Urine neg for UTI. See problem list details for additional plan information. Laboratory Studies: Laboratory Tests 04/10/23 Range/Units 18:50 Urine Color Yellow (Yellow) Urine Clarity Clear (Clear) Urine pH 7.0 (5.0 - 8.0) Ur Specific [place] 1.010 (1.002-1.030) Urine Protein Negative (Negative) mg/dl [...] Multi Select Codes Urinary/Genital Urinary/Genital CPT Codes: 18296-80 non-stress test Interp Assessment & Plan (1) [...] Supervision of high risk , antepartum: COMMENT: [id number], RONEY 05/09/23, PC Renae, Bam (7) : QUALIFIERS: Weeks of gestation: 30 weeks Qualified Code(s): Z3A.30 - 30 weeks gestation of COMMENT: discussed genetic & carrier testing 04/10/231939 <Electronically signed by Jeanine palmer CNM> Date _ Jeanine Knight CNM Cosigner Signature (if applicable): Date CC: MAX Knight; Dr. Ada Garcia MD ~ Signed [facility] Work Phone: Progress note Author Jeanine Knight [facility] Note Date/Time January 27, 2025 11:[address] [facility] [address] [place] [address], [address] [place] [address] OFFICE VISIT Date of Service: 01/27/25 MR#: [id number] Acct: [id number] Name: HEATHER ANGEL Rep #: [id number] : 1995 Provider: MAX Knight Age/Sex: 29/F Location: [place] Status: Signed Intake Vital Signs 09/03/24 06:10 01/27/25 10:32 Height 5 ft 3 in 5 ft 3 in Weight: 142 lb 6 oz BMI 25.2 BP 115/75 Intake Visit Reasons: NOB LMP 4/ Chief Complaint: New OB Rocket Test Fire Worker Required: No Is patient in pain?: No Allergies No Known Allergies Allergy (Verified 01/27/25 10:30) Medications ?Medication ?Instructions ?Recorded ?Confirmed ?Type PNV no.151-iron 27 mg-folic 800 cap PO 09/10/22 History mcg-omega3 260 wc-hmo-exl-fish capsule omega-3 fatty acids 600 mg PO DAILY 04/10/2301/16 History Last Menstrual Period: 11/24/24 PFSH PFSH Medical History Galactosemia Biotinidase deficiency Abnormal biopsy result Family History Grandfather Cancer unknown type Grandmother Hypertension Ovarian cancer Paternal Grandfather Hypertension Grandmother Asthma Father Hypertension Social History adopted: No household members: spouse and children number of children: 2 current occupation: [employer] current occupational exposures/hazards: No pets and animals: [...] 1-2 times per week duration: 15-30 minutes/day gabriela/restorationist: Quaker seatbelt use: always do you feel safe at home: Yes 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 History 5 Elective abortions 0 Hx Para [...] term 9lbs 11oz Male 23 ep idural [facility] SM Bam 04/28/23 Iveth Alba 38 live - full term [id number] Female epidural [facility] Rayna Knight Bam Delivery Date: 10/02/21 [...] transfusions, Pulmonary (e.g.,TB,Asthma), Seasonal allergies, Drug/latex allergies/reactions, Link Knitting Machine Operator surgery, Operations/hospitalizations, Anesthetic complications, History of abnormal [...] Cosigner Signature: Date (if applicable) CC: ~ [facility] Work Phone: Progress note Author Serenity Shin [facility] Note Date/Time March 23, 2025 10:5 9am [facility] [address] [place] [address], [address] [place] [address] OFFICE VISIT Date of Service: 03/23/25 MR#: [id number] Acct: [id number] Name: HEATHER ANGEL Rep #: [id number] : 1995 Provider: Dr. 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 Is patient in pain?: No Allergies No Known Allergies Allergy (Verified 03/23/25 10:36) Medications ?Medication ?Instructions ?Recorded ?Confirmed ?Type PNV no.151-iron 27 mg-folic 800 cap PO 09/10/22 History mcg-omega3 260 sp-dte-fxk-fish capsule omega-3 fatty acids 600 mg PO DAILY 04/10/23 History Last Menstrual Period: 11/24/24 Zika: Zika virus screening: Negative : No PFSH PFSH Medical History Galactosemia Biotinidase deficiency Abnormal biopsy result Family History Grandfather Cancer unknown type Grandmother Hypertension Ovarian cancer Paternal Grandfather Hypertension Grandmother Asthma Father Hypertension Social History adopted: No household members: spouse and children number of children: 2 current occupation: [employer] current occupational exposures/hazards: No pets and animals: [...] 1-2 times per week duration: 15-30 minutes/day gabriela/restorationist: Quaker seatbelt use: always do you feel safe at home: Yes 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 History 5 Elective abortions 0 Hx Para [...] term 9lbs 11oz Male 23 ep idural [facility] SM Bam 04/28/23 Iveth Alba 38 live - full term [id number] Female epidural [facility] Rayna Knight Bam Delivery Date: 10/02/21 [...] Movement Monitoring, Signs and Symptoms of Preeclampsia, [place] Education and Intimate Partner Violence; Discussed Depression [...] Acute Comment: PRR, ; RONEY 08/31/24; PC: [place]; : Bam (6) : Status: Acute Qualifiers: [...] Madden DO> Date _ Serenity Luna DO Cosigner Signature: Date (if applicable) CC: ~ [facility] Work Phone: Progress note No data available for this section [facility] Progress note Author Aspen Morrison [facility] Note Date/Time May 19, 2025 1:09pm 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 Is patient in pain?: No Allergies No Known Allergies Allergy (Verified 05/19/25 12:57) Medications ?Medication ?Instructions ?Recorded ?Confirmed ?Type PNV no.151-iron 27 mg-folic 800 cap PO 09/10/22 History mcg-omega3 260 xt-smx-pwf-fish capsule omega-3 fatty acids 600 mg PO DAILY 04/10/23 History Last Menstrual Period: 11/24/24 Zika: Zika virus screening: Negative : Yes [facility] Medical History Galactosemia Biotinidase deficiency Abnormal biopsy result Family History Grandfather Cancer unknown type Grandmother Hypertension Ovarian cancer Paternal Grandfather Hypertension Grandmother Asthma Father Hypertension Social History adopted: No household members: spouse and children number of children: 2 current occupation: [employer] current occupational exposures/hazards: No pets and animals: [...] 1-2 times per week duration: 15-30 minutes/day gabriela/restorationist: Quaker seatbelt use: always do you feel safe at home: Yes 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 no cramping or bleeding. 04/20/25 -?-?-?-?-?-?-?-?-?-?-?-?- 20w 6d 152 lb 6 oz (+10 lb 6 oz) 120/77 Negative -?-?-?-?-?-?-?-?-?-?-?-?- Negative 145 -?-?-?-?-?-?-?-?-?-?-?-?- -NO VB. Ashu lopez. Nl anatomy US 05/19/25 -?-?-?-?-?-?-?-?-?-?-?-?- 25w 0d 159 lb 5 oz (+17 lb 5 oz) 114/67 -?-?-?-?-?-?-?-?-?-?-?-?- 141 25 -?-?-?-?-?-?-?-?-?-?-?-?- -No Vb, LOF. G ood FM. [place] ACOG [...] Symptoms of Preeclampsia, Infant Feeding Yes , [place] Education, Family Medical Leave or Disability Forms [...] up. 05/19/25 1312 <Electronically signed by Aspen MONCADAC> Date _ Aspen SCANLON Cosigner Signature: Date (if applicable) CC: ~ [facility] Work Phone: Reason for referral (narrative)No reason for referral information availableBlLong [facility] Work Phone: Chief Complaint and Reason for [...] January 14, 2025 9:22a m NOB LMP /January 27, 2025 10:17 am 13wk OB February [...] 23, 2025 10:27am History of thrombocytopenia March 23 025 10:27am Lead exposure March 23, 2025 [...] Augus t 2024 9:59am Biotinidase deficiency May 19 025 12:50pm Galactosemia May 19, 2025 12:50pm History of miscarriage, currently pregna nt May 19, 2025 12:50pm History of thrombocytopenia May 192024 12:50pm Lead exposure May 19, 2025 12:50pm May 19, 2025 12:50pm Rh negative status during Apr 12:50pm Supervision of high-risk 2024 12:50pm Family History No Family History Records Found Relationship Condition Age at Onset Recorded Date/T [...] Asthma Unknown father Hypertension Unknown Advance Directives No Advanced Directives Records Found Advance Directive Response Recorded Date/ Time Living Will No October 01 11:09pm Power of Field Test Engineer No October 01, 2021 11:09pm Advance Directive Response Recorded Date/ Time Living Will No October 01 10:09pm Power of Field Test Engineer No October 01, 2021 10:09pm Advance Directive Response Recorded Date/ Time Living Will No Nette 4th, 2 023 2:42am Power of Field Test Engineer No April 28, 2023 2:42am Summary Purpose [...] or prosecute any alcohol or drug abuse patient.[facility] the event this information is protected by the Federal Confidentiality of Alcohol and Drug Abuse Patient Records regulations: The Federal rules restrict any use of the information to criminally investigate or prosecute any alcohol or drug abuse patient.[facility] Reason for Visit (unrecogniz ed section and content) Reason Comments UTI Reason Comments Rash all over x 1 day Care Teams (unrecognized sec tion and content) Taker Off Relationship Specialty Start Date End Date Ada Garcia [address] [place] [address] PCP - General Family Practice 05/14/19 Team Status: Active Member Role Status Sienna Zaldivar Family Provider Active Ada Garcia MD Primary Care Provider Active Team Status: Inactive Member Role Status Sienna Garcia MD Primary Care Provider, Referring Pr ovider Active Elijah LAWRENCE PA Attending Provider Active Team Status: Inactive Member Role Status Sienna Garcia MD Primary Care Provider, Referring Pr ovider Active Dr. Ana Wynne MD Attending Provider Active Team Status: Inactive Member Role Status Sienna Garcia MD Primary Care Provider Active Elijah LAWRENCE PA Attending Provider Active Team Status: Active Member [...] Team Status: Active Member Role Status Sienna Zaldivar Family Provider Active Dr. Ada Garcia [...] Care Provider, Referring Provider Active Aspen Morrison LEATHER HEEL BREASTER, LEATHER HEEL BREASTER-C Attending Provider Active Team Status: Inactive Member [...] THAPA MD Referring Provider Active Aspen Morrison NP, LEATHER HEEL BREASTER-C Attending Provider Active Dr. Ada Garcia MD Primary Care Provider Active Team Status: Active Member Role Status Sienna Knight CNM Attending Provider, Referring Pro vider Active Dr. Ada Garcia MD Primary Care Provider Active Team Status: Inactive Member Role Status Sienna Garcia MD Primary Care Provider Active Aspen Morrison LEATHER HEEL BREASTER, LEATHER HEEL BREASTER-C Attending Provider, Referring Provider Active Team Status: Inactive Member Role Status Sienna THAPA MD Referring Provider Active Dr. Ana [...] CNM Admit Provider, Attending Provide r Active Taker Off Relationship Specialty Start Date End Date Ada Garcia [address] [place] [address] PCP - General Family Medicine 05/14/19 Team [...] 2025 End: April 20, 2025 Aspen Morrison LEATHER HEEL BREASTER, LEATHER HEEL BREASTER-C Attending Provider Active Start: April 20, 2025 [...] End: April 20, 2025 Aspen Morrison NP, NP-C Attending physician Active Start: April 20, 2025 End: April 20, 2025 Team Status: Inactive Member Role/Relationship Status Dates Dr. Ada Garcia MD Primary care physician Active Start: May 19, 2025 End: May 19, 2025 Dr. Ada Garcia MD Referring Provider Active Start: May 19, 2025 End: May 19, 2025 Aspen Morrison NP LEATHER HEEL BREASTER-C Attending physician Active Start: May 19, 2025 End: May 19, 2025 INFORMATION SOURCE (unrecogn ized section and content) DATE CREATED AUTHOR 01/07/2023 [facility] DATE CREATED AUTHOR AUTHOR'S ORGANIZ ATION 09/16/2024 [facility] DATE CREATED AUTHOR AUTHOR'S ORGANIZ ATION 04/22/2025 [facility] DATE CREATED AUTHOR AUTHOR'S ORGANIZ ATION 06/22/2025 [facility] FOR RECORDS PERTAINING TO PATIENTS WHO ARE [...] BE BASED ON THE PRIMARY CLINICAL RECORDS. [facility]. provides no warranty or guarantee of the accuracy or completeness of information in this document.
== END | disposition home or self-care (01) ==
LOC: LABSPEC 10:20
PROVIDERS: PCP Family Medicine; Referring Provider Obstetrics & Gynecology; Visit Provider Obstetrics & Gynecology
DX: O23.40 Unspecified infection of urinary tract in pregnancy, unspecified trimester (principal); Z3A.00 Weeks of gestation of pregnancy not specified
CPT/HCPCS: 87086; 87088

== ENCOUNTER → 2025-07-08 | Outpatient (CLI) | payer OTHER, SELFPAY ==
[2025-07-08 12:41] LABS: Hematocrit 36.8 % (37-47); Hemoglobin 12.2 g/dL (12.0-15.0); Immature Granulocytes Count 0.050 X10^3/uL (0.0-0.0); Mean Corp Hgb Conc 33.2 g/dL (32-36); Mean Corpuscular Volume 89.1 fL (81-99); Mean Platelet Vol. 11.4 fl (6.2-12.0); NRBC Flagged by Analyzer 0 % (0-5); Platelet Count 129 K/mm3 (150-450); RBC Distribution Width CV 12.1 % (11.6-14.6); RBC Distribution Width SD 39.3 fl (35.1-43.9); Red Blood Count 4.13 M/mm3 (4.2-5.4); White Blood Count 6.8 K/mm3 (4.4-11.0)
== END | disposition home or self-care (01) ==
PROVIDERS: Nurse Practitioner Women's Health; PCP Family Medicine; Visit Provider Advanced Practice Midwife
DX: O09.92 Supervision of high risk pregnancy, unspecified, second trimester (principal); Z86.2 Personal history of diseases of the blood and blood-forming organs and certain disorders involving the immune mechanism; Z3A.00 Weeks of gestation of pregnancy not specified
CPT/HCPCS: 36415; 85025

== ENCOUNTER → 2025-08-04 | Outpatient (CLI) | payer OTHER, SELFPAY ==
[2025-08-04 09:40] LABS: Hematocrit 35.9 % (37-47); Hemoglobin 12.5 g/dL (12.0-15.0); Immature Granulocytes Count 0.060 X10^3/uL (0.0-0.0); Mean Corp Hgb Conc 34.8 g/dL (32-36); Mean Corpuscular Volume 86.3 fL (81-99); Mean Platelet Vol. 10.9 fl (6.2-12.0); NRBC Flagged by Analyzer 0 % (0-5); Platelet Count 127 K/mm3 (150-450); RBC Distribution Width CV 12.3 % (11.6-14.6); RBC Distribution Width SD 38.4 fl (35.1-43.9); Red Blood Count 4.16 M/mm3 (4.2-5.4); White Blood Count 6.9 K/mm3 (4.4-11.0)
== END | disposition home or self-care (01) ==
PROVIDERS: Nurse Practitioner Women's Health; Referring Provider Student in an Organized Health Care Education/Training Program; Visit Provider Student in an Organized Health Care Education/Training Program
DX: O09.92 Supervision of high risk pregnancy, unspecified, second trimester (principal); Z3A.00 Weeks of gestation of pregnancy not specified
CPT/HCPCS: 36415; 85025; 87081

== ENCOUNTER 2025-08-21 21:05 | Inpatient (IN) | payer SELFPAY ==
[2025-08-21] VITALS (11 sets, daily range): BP systolic 118–130; BP diastolic 65–82; PULSE 84–108; RESP 16; TEMP 36.6; O2SAT 98–100; BMI 31.6
--- OUTSIDE RECORDS SUMMARY | 2025-08-21 21:14 | XMS RPT_ITS | CCD ---
Author Organization [facility] Care Team Providers Care Plate Inspector Name Role Phone MD Ada Garcia Primary Care Provider UnavailMD Ada Rodas Referring Provider Unavailable Dr. Serenity Luna Attending Provider [phone] Dr. Ana Wynne Attending Provider [phone] Dr. Ana Wynne Other Provider [phone] Dr. Samia Frias Admit Provider Dr. Ana Wynne Admit Provider [phone] Prince RELIGIOUS ACTIVITIES DIRECTOR, DENISE-Janay Louise Attending Provider [phone] Ada [...] Ada Maddox Referring Provider Unavail able Dr. nAa Wynne Attending Provider [phone] Dr. Serenity Luna Attending Provider [phone] Prince RELIGIOUS ACTIVITIES DIRECTOR, DENISE-Janay Louise Attending Provider [phone] MAX Knight Attending Provider [phone] MD Ada Maddox S Primary Care Provider Unav ailable MD Ada Maddox Referring Provider Unavail able Dr. Ada Garcia S Primary Care Provider MD Ada Maddox S Primary Care Provider Unav ailable MD Ada Mdadox S Referring Provider Unavail able Dr. Serenity Luna Attending Provider [phone] MD Ada Maddox S Primary Care Provider Unav ailable Radha THAPA MD Ada S Referring Provider Unavail able Prince RELIGIOUS ACTIVITIES DIRECTOR, RELIGIOUS ACTIVITIES DIRECTOR-C Aspen Attending Provider [phone] Dr. Ana [...] JORGE LUIS REID Primary Care Physician Prince RELIGIOUS ACTIVITIES DIRECTOR-CAspen Attending Provider [phone] JORGE LUIS REID Attending JORGE LUIS Youngblood Primary Care Dr. Ada Schneider MD Primary Care Physician Jeanine Knight CNM Attending Physician Ricci SAXENA, Dr. Perez Attending Physician Dr. Serenity Luna DO Attending Physician Winters RELIGIOUS ACTIVITIES DIRECTOR-C, Aspen Attending Physician [phone] Dr. Ada Garcia MD Primary Care Physician Radha SAXENA, Dr. Ada Palmer Referring Provider Eugene CNM, Jeanine Attending Physician [phone] Eugene CNM, Jeanine Referring Provider [phone] Prince RELIGIOUS ACTIVITIES DIRECTOR-C, Aspen Referring Provider [phone] Jose Scott Referring Unavailable TylerJose Attending Unavailable Jolliff, Ada S Primary Care Unavailable Jeanine Knight Referring Unavailable Jeanine Knight Attending Unavailable Jolliff, Ada S Primary Care Unavailable Jeanine Knight Referring Unavailable Jeanine Knight Attending Unavailable Jolliff, Ada S Primary Care Unavailable Serenity Luna Attending Unavailabl e Jolliff, Ada S Primary Care Unavailable Jolliff, Ada S Referring Unavailable Prince RELIGIOUS ACTIVITIES DIRECTOR, Aspen Attending Unavailable Jolliff, Ada S Primary Care Unavailable Jolliff, Ada S Referring Unavailable Winters RELIGIOUS ACTIVITIES DIRECTOR, Aspen Attending Unavailable Jolliff, Ada S Primary Care Unavailable Jolliff, Ada S Referring Unavailable Kiah Farias Attending Unavailable Jolliff, Ada S Primary Care Unavailable Jeanine Knight Attending Unavailable Jolliff, Ada S Primary Care Unavailable Jolliff, Ada S Referring Unavailable Ana Wynne Attending Unavailable Jolliff, Ada S Primary Care Unavailable Jolliff, Ada S Referring Unavailable TylerJose Attending Unavailable Jolliff, Ada S Referring Unavailable Jolliff, Ada S Primary Care Unavailable Jeanine Knight Attending Unavailable Jolliff, Ada S Referring Unavailable Jolliff, Ada S Primary Care Unavailable Ana Wynne Attending Unavailable Jolliff, Ada S Primary Care Unavailable Jolliff, Ada S Referring Unavailable Prince RELIGIOUS ACTIVITIES DIRECTOR, Aspen Referring Unavailable Prince RELIGIOUS ACTIVITIES DIRECTOR, Aspen Attending Unavailable Jolliff, Ada S Primary Care Unavailable Jeanine Knight Referring Unavailable Jolliff, Ada S Primary Care Unavailable Jeanine Knight Attending Unavailable Ana Wynne Referring Unavailable Ana Wynne Attending Unavailable Jolliff, Ada S Primary Care Unavailable Medications Current Medications Medication Drug Class(es) Dates Sig (Normalized) Sig (Original) [id number] 200 actuat albuterol 0.09 mg/actuat metered dose [...] Total Allowed Fills: 1 Fills Dispensed: 0 nitrofurantoin, macrocrystals 25 mg / nitrofurantoin, monohydrate 75 mg oral capsule (20 sources) Nitrofuran Antibacterial Start: 06-09-2025 End: 06-16-2025 take 1 capsule by mouth twice daily at mealtime Nitrofurantoin Monohyd/M-Cryst (Macrobid) 100 mg capsule Discontinued 100 mg PO TWICE A DAY 14 7 0 June 09, 2025 12:00am June 15, 2025 12:00am June 16, 2025 12:11am Urinary tract infection Urinary tract infection, site not specified must administer with a meal/food Start: 09-03-2024 End: 09-10-2024 take 1 capsule [...] 2022 1:13am must administer with a meal/food [place]-3 Fatty Acids (3 sources) Start: 04-10-2023 take 600 mg by mouth once daily [place]-3 Fatty Acids Active 600 MG PO DAILY April 10, 2023 12:00am [place]-3 Fatty Acids capsule (8 sources) Start: 04-10-2023 take 1 capsule by mouth once daily Start: 04-10-2023 take 1 capsule by mo ut once daily [place]-3 Fatty Acids capsule Active 600 mg PO DAILY April 10, 2023 12:00am Complies with drug therapy Start: 04-10-2023 take 1 capsule by [facility] once daily [place]-3 Fatty Acids capsule Active 600 mg PO DAILY April 10, 2023 12:00am Svc291-Chat-Ud-O8-Lae-Usn-Wi sh (11 sources) Start: 09-10-2022 Hqk278-Tsys-Ki-G7-Qha-Gil-Zt sh Active CAP PO September 10, 2022 1:00am Start: 09-10-2022 Vsb003-Lvdg-Sr -P8-Gwn-San-Fish Active CAP PO September 10, 2022 12:00am Hli316-Rjhq-Ro-K6-Nrt-Vlc-Ya sh 27 mg iron-800 mcg-260 mg capsule (8 sources) Start: 09-10-2022 Start: 09-10-2022 Zsg859-Dgel-Px -A9-Eyh-Ynb-Fish 27 mg iron-800 mcg-260 mg capsule Active NMA PO September 10, 2022 1:00am Complies with drug therapy Start: 09-10-2022 Ivm745-Ksvh-Pc -J5-Pug-Fno-Fish 27 mg iron-800 mcg-260 mg capsule Active [...] (Original) ascorbic acid 250 mg oral tablet (11 sources) Vitamin C Start: 04-10-2023 End: 01-14-2025 take 1 tablet by mouth once daily Ascorbic Acid (Vitamin C) (Vitamin C) 250 mg tablet Discontinued 250 mg PO DAILY April 10, 2023 12:00am January 14, 2025 9:23am aspirin 81 mg delayed release oral tablet (20 sources) Platelet Aggregation Inhibitor, Nonsteroidal Anti-inflammatory Drug Start: 02-08-2021 End: 11-15-2021 take 1 tablet by mouth once daily Aspirin (Adult Aspirin Regimen) 81 mg tablet,delayed release (DR/EC) Discontinued 81 mg PO DAILY February 08, 2021 12:00am November 15, 2021 10:04am hx loss cephalexin 500 mg oral capsule (20 sources) Cephalosporin Antibacterial Start: 02-23-2021 End: 03-02-2021 [...] 26, 2020 1:00am September 10, 2022 9:32am [place]-3 Fatty Acids (Fish Oil Concentrate) 1,000 mg capsule (20 sources) Start: 09-26-2020 End: 11-15-2021 take 1 capsule by mouth once daily [place]-3 Fatty Acids (Fish Oil Concentrate) 1,000 mg capsule Discontinued 1000 MG PO DAILY September 26, 2020 9:51am November 15, 2021 10:04am Start: 09-26-2020 End: 11-15-2021 take 1 capsule by mouth once daily [place]-3 Fatty Acids (Fish Oil Concentrate) 1,000 mg capsule Discontinued 1000 mg PO DAILY September 26, 2020 1:00am November 15, 2021 10:04am supplement Start: 09-26-2020 End: 11-15-2021 take 1 capsule by mouth once daily [place]-3 Fatty Acids (Fish Oil Concentrate) 1,000 mg capsule Discontinued 1000 mg PO DAILY September 26, 2020 1:00am November 15, 2021 10:04am Start: 09-26-2020 End: 11-15-2021 take 1 capsule by mouth once daily [place]-3 Fatty Acids (Fish Oil Concentrate) 1,000 mg capsule Discontinued 1000 MG PO DAILY September 26, 2020 1:00am November 15, 2021 10:04am Start: 09-26-2020 End: 11-15-2021 take 1 capsule by mouth once daily [place]-3 Fatty Acids (Fish Oil Concentrate) 1,000 mg capsule Discontinued 1000 MG PO DAILY September 26, 2020 12:00am November 15, 2021 9:04am rho(d) immune globulin, human 1500 unt prefilled syringe (2 sources) Human Immunoglobulin G Start: 07-11-2021 End: 07-11-2021 inject 1500 [IU] by intramuscular injection once RhoGAM Ultra-Filtered PLUS (rho(D) immune globulin) 1,500 unit (300 mcg) Discontinued 1500 UNIT IM ONCE 1 July 11, 2021 9:51am July 11, 2021 10:09am Start: 11-24-2020 End: 11-24-2020 inject 1500 [IU] by intramuscular injection once RhoGAM Ultra-Filtered PLUS (rho(D) immune globulin) 1,500 unit (300 mcg) Discontinued 1500 UNIT IM ONCE November 24, 2020 2:03pm November 24, 2020 2:22pm Problems Active Problems Problem Classification Problem Date Documented Date Episodic/Chronic Coagulation and hemorrhagic disorders (1 source) Thrombocytopenia, unspecified; Translations: [Thrombocytopenia, unspecified] Onset: 06-23-2025 Chronic Early or threatened labor (16 sources) Premature uterine contraction; Translations: [False labor [...] Comment on above: Given 07/11/21 Rhogam given 4/ due to quant of 10 with bleeding. Given 07/11/21 Other complications of (20 sources) Disease caused by 2019-nCoV; Translations: [Other [...] on above: repeat CBC in 4w 02/18:139. 7/25:135. Rpt 36wk Other complications of (20 sources) High risk ; Translations: [Supervision of high risk , unspecified, unspecified trimester] 09-10-2022 Episodic Comment on above: ; RONEY 08/31/24; PC : Renae & Iveth; : Bam PRR RONEY 10/01/21 Boy! Renae Spouse: Bam Angel [id number], RONEY 05/09/23 , PC Renae, Bam PRR (waiting on gcc) ; RONEY 08/31/24; PC: Renae & Iveth; : Bam PRR, ; RONEY 5; PC: [...] to episode of care or not applicable] Onset: 06-23-2025 Episodic Other complications of (20 sources) Supervision [...] of high-risk with history of ] Onset: 06-23-2025 09-16-2022 Episodic Other complications of (20 sources) Other specified related conditions, unspecified trimester; Translations: [Other specified complications of , antepartum condition or complication] Onset: 06-21-2025 09-16-2022 Episodic Other complications of (15 sources) Anomaly of placenta; Translations: [Malformation of [...] 12-24-2022 Episodic Other complications of (1 source) Urinary tract infection in ; Translations: [Unspecified infection of urinary tract in , unspecified trimester] 06-13-2025 Episodic Comment on above: needs new sample nex t appt per KW Other complications of (1 source) Unspecified infection of urinary tract in , unspecified trimester; Translations: [Unspecified infection of urinary tract in , unspecified trimester] Onset: 06-29-2025 Episodic Other complications of (1 source) Other specified related conditions, second trimester; Translations: [Other specified related conditions, second trimester] Onset: 06-23-2025 Episodic Other complications of (1 source) Supervision of high risk , unspecified, second trimester; Translations: [Supervision of high risk , unspecified, second trimester] Onset: 06-23-2025 Episodic Other female genital disorders (20 sources) Recurrent miscarriage; 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] 11-15-2021 [...] certain disorders involving the immune mechanism] Onset: 06-23-2025 Episodic Other nutritional; endocrine; and metabolic disorders (20 sources) Biotinidase deficiency; 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; 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 Other nutritional; endocrine; and metabolic disorders (20 sources) Galactosemia; 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 Comment on above: carrier of; 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 Other nutritional; endocrine; and metabolic disorders (1 source) Biotinidase deficiency; 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 Other nutritional; endocrine; and metabolic disorders (1 source) Galactosemia; 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 Residual codes; unclassified (8 sources) Genetic carrier of other disease; Translations: [Other genetic carrier status] Episodic Residual codes; unclassified (20 sources) Contact with and (suspected) exposure to lead; Translations: [Exposure to lead] Onset: 06-23-2025 01-27-2025 Episodic Residual codes; unclassified (1 source) Unspecified blood type, Rh negative; Translations: [Unspecified blood type, Rh negative] Onset: 06-23-2025 Episodic Residual codes; unclassified (1 source) 30 weeks gestation of ; Translations: [30 weeks gestation of ] Onset: 06-23-2025 Episodic Residual codes; unclassified (1 source) 28 [...] Translations: [Spontaneous rupture of amniotic membranes] Unclassified (10 sources) Labor finding; Translations: [Active labor] 04-29-2023 Results Test Name Value Interpretation Reference Range Facility Urine Cultureon 06-25-2025 URC #1, 2 Below infectio n level. Presumptive E. coli Leonard Count <1000 Mixed Gram Positive Organisms Mixed Gram Positive Organisms MIXC Mixed contaminants. Submit a new specimen if indicated. Normal [facility] Comment on above: Performed By: #### M 100.2200 #### [facility] Laboratory [address] [place], [place], [id number] Section Laborer Office Visit Reporton 06-23-2025 Section Laborer Office Visit Report [address], [address] [place] [address] OFFICE VISIT Date of Service: 06/23/25 MR#: [id number] Acct: [id number] Name: HEATHER ANGEL Rep #: [id number] : 1995 Provider: Dr. nAa wolff MD Age/Sex: 30/F [place] [facility] [place]: Signed with Addenda ADDENDUM by Aspen Henry on 06/23/25 at 1109 Office Procedure Documentation entered by Aspen Henry 06/23/25 11:09: Immunizations Adacel(Tdap Adolesn/Adult)(PF) 2 Lf-(2.5-5-3-5)-5 Lf/0.5 mL IM syringe Performing Provider: Ana Wynne MD Performing Location: [facility] Administered by: Aspen Henry on 06/23/25 11:08 Dose Route Admin Location Dispensed Lot Number Expiration Date Package NDC NDC Crossing Guard 0.5 mL IM Right Deltoid 0.5 mL [id number] 04/24/27 92366-520-61 [id number] S [employer]OFI[employer]PASTEUR VIS Given Date VIS Provided VIS Publication Date 06/23/25 Single Vaccine 24 Eligibility Eligibility Date Funding Source Not Applicable Date cc: * Signed Intake Vital Signs 04/20/25 10:09 06/09/25 14:58 06/23/25 10:01 Height 5 ft 3 in 5 ft 3 in 5 ft 3 in Weight: 166 lb 5 oz BMI 29.5 BP 129/80 H Intake Visit Reasons: 30 WK OB Water Trainer Required: No Is patient in pain?: No Allergies No Known Allergies Allergy (Verified 06/23/25 10:02) Medications ???Medication ???Instructions ???Recorded ???Confirmed ???Type PNV no.151-iron 27 mg-folic 800 cap PO 09/10/22 06/23/25 History mcg-omega3 260 wg-vid-gkm-fish capsule omega-3 fatty acids 600 mg PO DAILY 04/10/23 06/23/25 History Last Menstrual Period: 11/24/24 Zika: Zika virus screening: Negative : No PFSH PFSH Medical History Galactosemia Biotinidase deficiency Abnormal biopsy result Family History Grandfather Cancer unknown type Grandmother Hypertension Ovarian cancer Paternal Grandfather Hypertension Grandmother Asthma Father Hypertension Social History adopted: No household members: spouse and children number of children: 2 current occupation: [employer] current occupational exposures/hazards: No pets and [...] 1-2 times per week duration: 15-30 minutes/day gabriela/faith: Lutheran seatbelt use: always do you feel safe at home: Yes 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 OB Visit RONEY Calculator Estimated Delivery Date Method Current WG Current Estimate 09/01/25 Ultrasound #1 30w 0d Other Estimates 08/31/25 LMP (Certain) 30w 1d Expected Delivery Route/Plan Labor Preferences- CB/BF classes: no labor support person: Bam labor intervention preferences: [] pain management options preferred: epidural cut cord/dad catch: cord : yes PP control planned: discussed discussed possible routes of delivery and associated risks: [] special requests: [] Specific Issue/Plans Covid status: [] Flu vaccine: declined Tdap vaccine: given Rhogam: na LARC form signed: yes movement and labor precautions reviewed. Problem list reviewed and updated with the most current plan of care details and appropriate orders placed. Relevant counseling for the gestational age provided. Continue routine care and follow up unles (more content not included)... Normal [facility] Urine Cultureon 06-13-2025 URC Urine Culture Streptococcus parasanguinis Leonard Count 80,000-100,000 Streptococcus parasanguinis: REACTION Ampicillin Islt NEO <=0.25 Penicillin G Islt NEO 0.12 S Cefotaxime Islt NEO <=0.12 S cefTRIAXone Islt NEO <=0.12 S Linezolid Islt NEO <=2 S Vancomycin Islt NEO 0.5 S Normal [facility] Comment on above: Performed By: #### M 100.2200, L7000.1800 #### [facility] Laboratory [facility] [address] [place], [place], [id number] Absolute lymphocyte countOrd ered By: Aspen Morrison on 06-09-2025 Lymphocytes Auto (Unsp spec) [#/Vol] 1.49 10*3/uL 0.83-4.51 [facility] Absolute neutrophil countOrd ered By: Aspen Morrison on 06-09-2025 Neutrophils (Bld) [#/Vol] 5.2 10*3/uL 2.0-7.7 [facility] Automated lymphocyte count a s percentage of total leukocytesOrdered By: Aspen Morrison on 06-09-2025 Lymphocytes/100 WBC Auto (Unsp spec) 20.5 % 19-41 [facility] Basophil percentageOrdered B y: Aspen Prince on 06-09-2025 Basophils/100 WBC (Bld) 0.4 % 0-1 [facility] CBC W/Diff, Automatedon 10 PLT MORPH LARGE Normal [facility] Comment on above: Performed By: #### L 501.0250, BTS, L100.0100, L509.8002, L3890.6006 #### [facility] Laboratory [address] [place], [place], [id number] Eosinophil percentageOrdered By: Aspen Morrison on 06-09-2025 Eosinophils/100 WBC (Bld) 0.8 % 0-5 [facility] Erythrocyte distribution wid th ratioOrdered By: Aspen Morrison on 06-09-2025 Erythrocyte distribution width (RBC) [Ratio] 12.0 % 11.6-14.6 [facility] Erythrocyte distribution wid th standard deviationOrdered By: Aspentomi Morrison on 06-09-2025 Erythrocyte distribution width (RBC) [Ratio] 37.9 fl 35.1-43.9 [facility] Glucose Challenge Gest 1H 50 savi 06-09-2025 GLU GEST 50g 1H 77 mg/dL Normal 70-140 [facility] Comment on above: Result Comment: AMENDED REPORT 06/09/251542 GLU GEST 50g 1H previously reported as: 77 mg/dL Performed By: #### L 501.0250, BTS, L100.0100, L509.8002, L3890.6006 #### [facility] [address] [place], [place], [id number] Glucose measurement at 2 tacos rs post-dose gestational glucose tolerance testOrdered By: Aspen Morrison on 06-09-2025 Glucose [Mass/Vol] 78 mg/dL 70-140 [facility] Comment on above: Previous reported re sult: 77 mg/dLEdited by: AUTOINS on 06/09/25:1543 AMENDED REPORT 06/09/25 1543 GLU GEST 50g 1H previously reported as: 77 mg/dL HIVon 06-09-2025 HIV Non-Reactive Normal Nonreactive [facility] Comment on above: Result Comment: Non- Reactive Reactive Repeatedly reactive samples must be confirmed according to CDC recommended confirmatory algorithms. The subresults for either HIVAG or AHIV can be used as an aid in the selection of the confirmation algorithm for reactive samples. Send out specimens with Reactive results to [facility] for confirmation. Order the HIV antibody detection and differentiation: [id number] Performed By: #### L 501.0250, BTS, L100.0100, L509.8002, L3890.6006 #### [facility] [address] [place], [address] Hematocrit Auto (Bld) [Volum e fraction]Ordered By: Aspen Morrison on 06-09-2025 Hematocrit (Bld) [Volume fraction] 36.0 % Low 37-47 [facility] Hemoglobin measurementOrdere d By: Aspen Morrison on 06-09-2025 Hemoglobin (Bld) [Mass/Vol] 12.4 g/dL 12.0-15.0 [facility] Immature granulocytes/100 WB C Auto (Bld)Ordered By: Aspentomi Morrison on 06-09-2025 Immature granulocytes/100 WBC (Bld) 0.700 % 0.0-0.9 [facility] Comment on above: IG% - Immature Granu locytes (promyelocytes, myelocytes and metamyelocytes) > 1% indicates that a LEFT SHIFT is Present. Laboratory - Chemistry and C hemistry - challengeOrdered By: Jeanine Knight on 06-09-2025 Bilirubin Ql (U) Negative [facility] Glucose Ql (U) Negative [facility] Ketones Ql (U) Negative [facility] pH (U) 8 [pH] [facility] Specific gravity (U) [Rel density] 1.015 [facility] Urobilinogen (U) [Mass/Vol] Negative [facility] Laboratory - Hematology and Cell countsOrdered By: Jeanine Knight on 06-09-2025 Hemoglobin Ql (U) Trace [facility] Laboratory - Specimen inform ationOrdered By: Jeanine Knight on 06-09-2025 Clarity (U) Cloudy [facility] Color (U) YELLOW [facility] Laboratory - UrinalysisOrder ed By: Jeanine Knight on 06-09-2025 Nitrite Ql (U) Negative [facility] Protein Ql (U) Negative [facility] MCV (mean corpuscular volume ) determinationOrdered By: Aspen Morrison on 06-09-2025 MCV (RBC) [Entitic vol] 85.9 fL 81-99 [facility] Mean corpuscular hemoglobin (MCH) determinationOrdered By: Aspen Morrison on 06-09-2025 MCH (RBC) [Entitic mass] 29.6 pg 27.0-32.0 [facility] Mean corpuscular hemoglobin concentration (MCHC) determinationOrdered By: Aspen Morrison on 06-09-2025 MCHC (RBC) [Mass/Vol] 34.4 g/dL 32-36 [facility] Mean platelet volume determi nationOrdered By: Aspen Morrison on 06-09-2025 Platelet mean volume (Bld) [Entitic vol] 10.6 fL 6.2-12.0 [facility] Monocyte percentageOrdered B y: Aspen Morrison on 06-09-2025 Monocytes/100 WBC (Bld) 5.9 % 0-10 [facility] Neutrophil percentageOrdered By: Aspen Morrison on 06-09-2025 Neutrophils/100 WBC (Bld) 71.7 % High 47-70 [facility] No Panel InformationOrdered By: Jeanine Knight on 06-09-2025 Urine Leukocytes Positive [facility] Urine Non-Hemolyzed Blood Negative [facility] No Panel InformationOrdered By: Aspen Morrison on 06-09-2025 HIV (1&2) Antibody Non-Reactive Nonreactive [facility] Comment on above: Non-ReactiveReactive Repeatedly reactive samples must be confirmed according to CDC recommended confirmatory algorithms. The subresults for either HIVAG or AHIV can be used as an aid in the selection of the confirmation algorithm for reactive samples.Send out specimens with Reactive results to [facility] for confirmation.Order the HIV antibody detection and differentiation: lc#[id number] Nucleated red blood cell per centageOrdered By: Aspen Morrison on 06-09-2025 Nucleated RBC/100 WBC (Bld) [Ratio] 0 % 0-5 [facility] Section Laborer Office Visit Reporton 06-09-2025 Section Laborer Office Visit Report [facility] [address], [address] [place] [address] OFFICE VISIT Date of Service: 06/09/25 MR#: [id number] Acct: [id number] Name: HEATHER ANGEL Rep #: [id number] : 1995 Provider: MAX Jerez ams Age/Sex: 30/F [place] [facility] [place] Intake Vital Signs 04/20/25 10:09 05/19/25 12:53 06/09/25 14:58 Height 5 ft 3 in 5 ft 3 in 5 ft 3 in Weight: 165 lb 3 oz BMI 29.2 BP 115/73 Intake Visit Reasons: 28 WK OB GLUCOSE/RHOGAM Chief Complaint: 28wk OB Water Trainer Required: No Is patient in pain?: No Allergies No Known Allergies Allergy (Verified 06/09/25 15:01) Medications ???Medication ???Instructions ???Recorded ???Confirmed ???Type PNV no.151-iron 27 mg-folic 800 cap PO 09/10/22 06/09/25 History mcg-omega3 260 zu-pik-mih-fish capsule omega-3 fatty acids 600 mg PO [...] children number of children: 2 current occupation: [employer] current occupational exposures/hazards: No pets and [...] 1-2 times per week duration: 15-30 minutes/day gabriela/faith: Lutheran seatbelt use: always do you feel safe at home: Yes 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 ??-???-?? (more content not included)... Normal [facility] Platelet countOrdered By: Mo anita Morrison on 06-09-2025 Platelets (Bld) [#/Vol] 139 10*3/uL Low 150-450 [facility] Platelet morphologyOrdered B y: Aspen Paztings on 06-09-2025 Platelet morphology finding Nom (Bld) LARGE [facility] RBC Auto (Bld) [#/Vol]Ordere d By: Aspen Paztings on 06-09-2025 RBC (Bld) [#/Vol] 4.19 10*6/uL Low 4.2-5.4 [facility] Syphilis Antibodieson 2024 Syphilis Abs Non-Reactive Normal Nonreactive [facility] Comment on above: Performed By: #### L 501.0250, BTS, L100.0100, L509.8002, L3890.6006 #### [facility] Laboratory [address] [place], [place], [id number] Type AND Screenon 06-09-2025 Ab SCREEN GEL Negative Normal [facility] Comment on above: Order Comment: HVAG Performed By: #### L 501.0250, BTS, L100.0100, L509.8002, L3890.6006 #### [facility] Laboratory [address] [place], [address] Urine cultureOrdered By: Gerard Knight on 06-09-2025 Bacteria identified Cx Nom (U) Streptococcus parasanguinis Abnormal [facility] White blood cell (WBC) count Ordered By: Aspen Morrison on 06-09-2025 WBC (Bld) [#/Vol] 7.3 10*3/uL 4.4-11.0 [facility] Laboratory - Chemistry and C hemistry - challengeOrdered By: Aspen Morrison on 05-19-2025 Glucose Ql (U) Negative [facility] Laboratory - UrinalysisOrder ed By: Aspen Morrison on 05-19-2025 Protein Ql (U) Negative [facility] Section Laborer Office Visit Reporton 05-19-2025 Section Laborer Office Visit Report [address] [place] [address] OFFICE VISIT Date of Service: 05/19/25 MR#: [id number] Acct: [id number] Name: HEATHER ANGEL Rep #: [id number] : 1995 Provider: CAPO botello Age/Sex: 30/F [place] [facility] [place]: Signed Intake Vital Signs 03/23/25 10:38 04/20/25 10:09 05/19/25 12:53 Height 5 ft 3 in 5 ft 3 in 5 ft 3 in Weight: 159 lb 5 oz BMI 28.2 BP 114/67 Intake Visit Reasons: 25 wk ob Chief Complaint: 25 Week OB Water Trainer Required: No Is patient in pain?: No Allergies No Known Allergies Allergy (Verified 05/19/25 12:57) Medications ???Medication ???Instructions ???Recorded ???Confirmed ???Type PNV no.151-iron 27 mg-folic 800 cap PO 09/10/22 05/19/25 History mcg-omega3 260 ii-apf-cpz-fish capsule omega-3 fatty acids 600 mg PO [...] children number of children: 2 current occupation: [employer] current occupational exposures/hazards: No pets and [...] 1-2 times per week duration: 15-30 minutes/day gabriela/faith: Lutheran seatbelt use: always do you feel safe at home: Yes 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 ??-???-???-???-???-???- 13w 0d 144 lb (+2 lb) 119/75 Negative -???-???-???-???-???-???-? ??-???-???-???-???-???- Negative 150 -???-???-???-???-???-?? (more content not included)... Normal [facility] Laboratory - Chemistry and C hemistry - challengeOrdered By: Aspen oMrrison on 04-20-2025 Glucose Ql (U) Negative [facility] Laboratory - UrinalysisOrder ed By: Aspen Morrison on 04-20-2025 Protein Ql (U) Negative [facility] Section Laborer Office Visit Reporton 04-20-2025 Section Laborer Office Visit Report [facility] [address], [address] [place] [address] OFFICE VISIT Date of Service: 04/20/25 MR#: [id number] Acct: [id number] Name: HEATHER ANGEL Rep #: [id number] : 1995 Provider: CAPO botello Age/Sex: 30/F [place] [facility] [place]: Signed Intake Vital Signs 01/27/25 10:32 03/23/25 10:38 04/20/25 10:04 04/20/25 10:09 Height 5 ft 3 in 5 ft 3 in 5 ft 3 in 5 ft 3 in Weight: 152 lb 6 oz BMI 26.9 BP 120/77 Intake Visit Reasons: 21wk ob Chief Complaint: 21 Week OB Water Trainer Required: No Is patient in pain?: No Allergies No Known Allergies Allergy (Verified 04/20/25 10:00) Medications ???Medication ???Instructions ???Recorded ???Confirmed ???Type PNV no.151-iron 27 mg-folic 800 cap PO 09/10/22 04/20/25 History mcg-omega3 260 so-wbg-zjf-fish capsule omega-3 fatty acids 600 mg PO [...] children number of children: 2 current occupation: [employer] current occupational exposures/hazards: No pets and animals: [...] 1-2 times per week duration: 15-30 minutes/day gabriela/faith: Lutheran seatbelt use: always do you feel safe at home: Yes 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 (more content not included)... Normal [facility] OB Anatomy w/ Transvaginalon 04-14-2025 OB Anatomy w/ Transvaginal [facility] [address] [place] [address] OB Anatomy w/ Transvaginal MR#: [id number] Acct: [id number] Name: HEATHER ANGEL Rep #: [id number] : 1995 F 30 From: Philip stoner MD PCP: Dr. Ada Garcia MD Status: REG CLI Study: OB Anatomy w/ Transvaginal Date of Exam: 04/14 Exam# [id number] Ordering Dr: Jeanine Knight CNM PROCEDURE: OB [...] 19 weeks and 6 days. Reading Location: [id number] CC: MAX Knight; Dr. Ada Garcia MD Photographic Process Attendant: Signed Normal [facility] Laboratory - Chemistry and C hemistry - challengeOrdered By: Serenity Shin on 03-23-2025 Glucose Ql (U) Negative [facility] Laboratory - UrinalysisOrder ed By: Serneity Shin on 03-23-2025 Protein Ql (U) Negative [facility] Section Laborer Office Visit Reporton 03-23-2025 Section Laborer Office Visit Report [facility] [address], [address] [place] [address] OFFICE VISIT Date of Service: 03/23/25 MR#: [id number] Acct: [id number] Name: HEATHER ANGEL Rep #: [id number] : 1995 Provider: Dr. Serenity Matos DO Age/Sex: 29/F [place] [facility] [place]: Signed Intake Vital Signs 01/27/25 10:32 02/24/25 15:20 03/23/25 10:36 03/23/25 10:38 Height 5 ft 3 in 5 ft 3 in 5 ft 3 in 5 ft 3 in Weight: 142 lb 6 oz 144 lb 147 lb 8 oz BMI 25.2 25.4 26.1 BP 115/75 119/75 123/70 H Intake Visit Reasons: 17wk ob Water Trainer Required: No Is patient in pain?: No Allergies No Known Allergies Allergy (Verified 03/23/25 10:36) Medications ???Medication ???Instructions ???Recorded ???Confirmed ???Type PNV no.151-iron 27 mg-folic 800 cap PO 09/10/22 03/23/25 History mcg-omega3 260 to-sva-lvz-fish capsule omega-3 fatty acids 600 mg PO [...] children number of children: 2 current occupation: [employer] current occupational exposures/hazards: No pets and [...] 1-2 times per week duration: 15-30 minutes/day gabriela/faith: Lutheran seatbelt use: always do you feel safe at home: Yes 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 Normal [facility] Laboratory - Chemistry and C hemistry - challengeOrdered By: Ana Wynne on 02-24-2025 Glucose Ql (U) Negative [facility] Laboratory - UrinalysisOrder ed By: Ana Wynne on 02-24-2025 Protein Ql (U) Negative [facility] Section Laborer Office Visit Reporton 02-24-2025 Section Laborer Office Visit Report [facility], [address] [place] [address] OFFICE VISIT Date of Service: 02/24/25 MR#: [id number] Acct: [id number] Name: HEATHER ANGEL Rep #: [id number] : 1995 Provider: Dr. Ana wolff MD Age/Sex: 29/F [place] [facility]: Signed Intake Vital Signs 09/03/24 06:10 01/27/25 10:32 02/24/25 15:20 Height 5 ft 3 in 5 ft 3 in 5 ft 3 in Weight: 144 lb BMI 25.4 BP 119/75 Intake Visit Reasons: 13wk OB Water Trainer Required: No Is patient in pain?: No Allergies No Known Allergies Allergy (Verified 02/24/25 15:23) Medications ???Medication ???Instructions ???Recorded ???Confirmed ???Type PNV no.151-iron 27 mg-folic 800 cap PO 09/10/22 02/24/25 History mcg-omega3 260 pa-kcx-exz-fish capsule omega-3 fatty acids 600 mg PO [...] children number of children: 2 current occupation: [employer] current occupational exposures/hazards: No pets and [...] 1-2 times per week duration: 15-30 minutes/day gabriela/faith: Lutheran seatbelt use: always do you feel safe at home: Yes 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 Normal [facility] Chlamydia/GC AUDRA aptimaon CHLAMY,NUC ACID Negative Normal Negative [facility] Comment on above: Performed By: #### M 100.2200, L7000.1800 #### [facility] Laboratory [address] [place], [place], [id number] GC BY NUC ACID Negative Normal Negative [facility] Comment on above: Result Comment: Perf ormed at: =G - [facility] [address] [facility], [place] [id number] District Superintendent: Whitley Anthony MD, Phone: [phone] Performed By: #### M 100.2200, L7000.1800 #### [facility] Laboratory [address] [place], [place], [address] Urine Cultureon 01-30-2025 URC Below infection leve l. Mixed Gram Pos Gram Neg Org Leonard Count <1000 MIXC Mixed contaminants. Submit a new specimen if indicated. Normal [facility] Comment on above: Performed By: #### M 100.2200, L7000.1800 #### [facility] Laboratory [address] [place], [address] Lead, Blood Adult 16+yrson 0 - LEAD,BLD ADULT < 1.0 Normal 0.0-3.4 [facility] Comment on above: Order Comment: Test( s) 194664-Wrhz, Blood (Adult)was developed and its performance characteristicsdetermined by [email or web address]. It has not been cleared or approvedby the Food and Drug Administration. Result Comment: Test ing performed by Inductively coupled plasma/Mass Spectrometry. Analysis by inductively coupled plasma/mass spectrometry (ICP/MS) Environmental Exposure: WHO Recommendation <5.0 Occupational Exposure: OSHA Lead Std 40.0 AARON 30.0 Detection Limit = 1.0 Performed at: [address] [id number] District Superintendent: Brian Olivares PhD, Phone: [phone] Performed By: #### M 1002200 #### [facility] Laboratory [address] [place], [address] Absolute lymphocyte countOrd ered By: Jeanine Knight on 01-27-2025 Lymphocytes Auto (Unsp spec) [#/Vol] 1.49 10*3/uL 0.83-4.51 [facility] Absolute neutrophil countOrd ered By: Jeanine Knight on 01-27-2025 Neutrophils (Bld) [#/Vol] 3.1 10*3/uL 2.0-7.7 [facility] Automated lymphocyte count a s percentage of total leukocytesOrdered By: Jeanine Knight on 01-27-2025 Lymphocytes/100 WBC Auto (Unsp spec) 29.5 % 19-41 [facility] Basophil percentageOrdered B y: Jeanine Knight on 01-27-2025 Basophils/100 WBC (Bld) 0.8 % 0-1 [facility] CBC W/Diff, Automatedon Absolute Lymph 1.49 X10 3/uL Normal 0.83-4.51 [facility] Comment on above: Performed By: #### M 100.2200 #### [facility] Laboratory [address] [place], [address] Absolute Neut 3.1 X10 3/uL Normal 2.0-7.7 [facility] Comment on above: Performed By: #### M 100.2200 #### [facility] Laboratory [address] [place], [address] Basophils/100 WBC (Bld) 0.8 % Normal 0-1 [facility] Comment on above: Performed By: #### M 100.2200 #### [facility] Laboratory [address] [place], [address] Eosinophils/100 WBC (Bld) 2.2 % Normal 0-5 [facility] Comment on above: Performed By: #### M 100.2200 #### [facility] Laboratory [address] [place], [address] Erythrocyte distribution width (RBC) [Ratio] 11.5 % Low 11.6-14.6 [facility] Comment on above: Performed By: #### M 100.2200 #### [facility] Laboratory [address] [place], [address] Hematocrit (Bld) [Volume fraction] 37.0 % Normal 37-47 [facility] Comment on above: Performed By: #### M 100.2200 #### [facility] Laboratory [address] [place], [address] Hemoglobin (Bld) [Mass/Vol] 12.7 g/dL Normal 12.0-15.0 [facility] Comment on above: Performed By: #### M 100.2200 #### [facility] Laboratory [address] [place], [address] IG% 0.200 Normal 0.0-0.9 [facility] Comment on above: Result Comment: IG% - Immature Granulocytes (promyelocytes, myelocytes and metamyelocytes) > 1% indicates that a LEFT SHIFT is Present. Performed By: #### M 100.2200 #### [facility] Laboratory [address] [place], [address] Lymphocytes/100 WBC (Bld) 29.5 % Normal 19-41 [facility] Comment on above: Performed By: #### M 100.2200 #### [facility] Laboratory [address] [place], [address] MCH (RBC) [Entitic mass] 28.9 pg Normal 27.0-32.0 [facility] Comment on above: Performed By: #### M 100.2200 #### [facility] Laboratory [address] [place], [address] MCHC (RBC) [Mass/Vol] 34.3 g/dL Normal 32-36 [facility] Comment on above: Performed By: #### M 100.2200 #### [facility] Laboratory [address] [place], [address] MCV (RBC) [Entitic vol] 84.3 fL Normal 81-99 [facility] Comment on above: Performed By: #### M 100.2200 #### [facility] Laboratory [address] [place], [address] Monocytes/100 WBC (Bld) 5.9 % Normal 0-10 [facility] Comment on above: Performed By: #### M 100.2200 #### [facility] Laboratory [address] [place], [address] Neutrophils/100 WBC (Bld) 61.4 % Normal 47-70 [facility] Comment on above: Performed By: #### M 100.2200 #### [facility] Laboratory [address] [place], [address] Nucleated RBC (Bld) [#/Vol] 0 10*3/uL Normal 0-5 [facility] Comment on above: Performed By: #### M 100.2200 #### [facility] Laboratory [address] [place], [address] Platelet mean volume (Bld) [Entitic vol] 10.5 fL Normal 6.2-12.0 [facility] Comment on above: Performed By: #### M 100.2200 #### [facility] Laboratory [address] [place], [address] Platelets (Bld) [#/Vol] 163 10*3/uL Normal 150-450 [facility] Comment on above: Performed By: #### M 100.2200 #### [facility] Laboratory [address] [place], [address] RBC (Bld) [#/Vol] 4.39 10*6/uL Normal 4.2-5.4 [facility] Comment on above: Performed By: #### M 100.2200 #### [facility] Laboratory [address] [place], [address] RDW SD 35.3 fl Normal 35.1-43.9 [facility] Comment on above: Performed By: #### M 100.2200 #### [facility] Laboratory [address] [place], [address] WBC (Bld) [#/Vol] 5.1 10*3/uL Normal 4.4-11.0 [facility] Comment on above: Performed By: #### M 100.2200 #### [facility] [address] [place], [address] Chlamydia trachomatis rRNA d etection by probe and target amplification methodOrdered By: Jeanine Knight on 01-27-2025 C. trachomatis rRNA AUDRA+probe Ql (Unsp spec) Negative Negative [facility] Eosinophil percentageOrdered By: Jeanine Knight on 01-27-2025 Eosinophils/100 WBC (Bld) 2.2 % 0-5 [facility] Erythrocyte distribution wid th ratioOrdered By: Jeanine Knight on 01-27-2025 Erythrocyte distribution width (RBC) [Ratio] 11.5 % Low 11.6-14.6 [facility] Erythrocyte distribution wid th standard deviationOrdered By: Jeanine Knight on 01-27-2025 Erythrocyte distribution width (RBC) [Ratio] 35.3 fl 35.1-43.9 [facility] HIVon 01-27-2025 HIV Non-Reactive Normal Nonreactive [facility] Comment on above: Result Comment: Non- Reactive Reactive Repeatedly reactive samples must be confirmed according to CDC recommended confirmatory algorithms. The subresults for either HIVAG or AHIV can be used as an aid in the selection of the confirmation algorithm for reactive samples. Send out specimens with Reactive results to [facility] for confirmation. Order the HIV antibody detection and differentiation: lc#[id number] Performed By: #### M 100.2200 #### [facility] Laboratory [address] [place], [place], [address] Hematocrit Auto (Bld) [Volum e fraction]Ordered By: Jeanine Knight on 01-27-2025 Hematocrit (Bld) [Volume fraction] 37.0 % 37-47 [facility] Hemoglobin measurementOrdere d By: Jeanine Knight on 01-27-2025 Hemoglobin (Bld) [Mass/Vol] 12.7 g/dL 12.0-15.0 [facility] Hepatitis C Antibodyon 01-27 Hepatitis C Ab Non-Reactive Normal Nonreactive [facility] Comment on above: Result Comment: Reac tive: Presumptive evidence of antibodies to HCV. Follow CDC recommendations for supplemental testing. Non-Reactive: Antibodies to HCV were not detected; does not exclude the possibility of exposure to HCV Reactive Results are presumptive evidence of antibodies to HCV. Follow CDC recommendations for supplemental testing. Order confirmation testing: HCV Quant by PCR testing - HCVPCR lc#[id number] Non Reactive: < 0.8 Equivocal: >/= 0.8 to < 1.0 Reactive: >/= 1.0 The CDC requires that a reactive/equivocal HCV antibody result be sent out for confirmation. HCV Quant by PCR testing. Performed By: #### M 100.2200 #### [facility] [address] [place], [address] Immature granulocytes/100 WB C Auto (Bld)Ordered By: Jeanine Knight on 01-27-2025 Immature granulocytes/100 WBC (Bld) 0.200 % 0.0-0.9 [facility] Comment on above: IG% - Immature Granu locytes (promyelocytes, myelocytes and metamyelocytes) > 1% indicates that a LEFT SHIFT is Present. L3890.6102on 01-27-2025 HEP B Surf Ag Non-Reactive Normal Nonreactive [facility] Comment on above: Result Comment: Reac tive: Presumptive evidence of HBV. Repeatedly reactive samples must be confirmed using a neutralization test ([employer] HBsAg Confirmatory Test) Non-Reactive: HBsAg not detected; does not exclude the possibility of exposure to HBV Performed By: #### M 100.2200 #### [facility] [address] [facility] [place], [place], [address] L509.4006on 01-27-2025 Rubella IgG REAC Normal Nonreactive [facility] Comment on above: Result Comment: Anti body Result: Interpretation Non-Reactive: Non-Immune Reactive: Immune The following results were obtained with the [employer] Rubella IgG assay. Results from assays of other manufacturers cannot be used interchangeably. Performed By: #### M 100.2200 #### [facility] [address] [facility] [place], [place], [id number] Laboratory - Microbiology an d Antimicrobial susceptibilityOrdered By: Jeanine Knight on 01-27-2025 HBV surface Ag Ql (S) Non-Reactive Nonreactive [facility] Comment on above: Reactive: Presumptiv e evidence of HBV. Repeatedly reactive samples must be confirmed using a neutralization test ([employer] HBsAg Confirmatory Test)Non-Reactive: HBsAg not detected; does not exclude the possibility of exposure to HBV MCV (mean corpuscular volume ) determinationOrdered By: Jeanine Knight on 01-27-2025 MCV (RBC) [Entitic vol] 84.3 fL 81-99 [facility] Mean corpuscular hemoglobin (MCH) determinationOrdered By: Jeanine Knight on 01-27-2025 MCH (RBC) [Entitic mass] 28.9 pg 27.0-32.0 [facility] Mean corpuscular hemoglobin concentration (MCHC) determinationOrdered By: Jeanine Knight on 01-27-2025 MCHC (RBC) [Mass/Vol] 34.3 g/dL 32-36 [facility] Mean platelet volume determi nationOrdered By: Jeanine Knight on 01-27-2025 Platelet mean volume (Bld) [Entitic vol] 10.5 fL 6.2-12.0 [facility] Monocyte percentageOrdered B y: Jeanine Knight on 01-27-2025 Monocytes/100 WBC (Bld) 5.9 % 0-10 [facility] Neisseria gonorrhoeae nuclei c acid detection by amplified probe techniqueOrdered By: Jeanine Knight on 01-27-2025 N. gonorrhoeae DNA AUDRA+probe Ql (Unsp spec) Negative Negative [facility] Comment on above: Performed at: =[address] [id number] Director: Whitley Anthony MD, Phone: [phone] Neutrophil percentageOrdered By: Jeanine Knight on 01-27-2025 Neutrophils/100 WBC (Bld) 61.4 % 47-70 [facility] No Panel InformationOrdered By: Jeanine Knight on 01-27-2025 HIV (1&2) Antibody Non-Reactive Nonreactive [facility] Comment on above: Non-ReactiveReactive Repeatedly reactive samples must be confirmed according to CDC recommended confirmatory algorithms. The subresults for either HIVAG or AHIV can be used as an aid in the selection of the confirmation algorithm for reactive samples.Send out specimens with Reactive results to [facility] for confirmation.Order the HIV antibody detection and differentiation: #[id number] Nucleated red blood cell per centageOrdered By: Jeanine Knight on 01-27-2025 Nucleated RBC/100 WBC (Bld) [Ratio] 0 % 0-5 [facility] Section Laborer Office Visit Reporton 01-27-2025 Section Laborer Office Visit Report [facility] [address], [address] [place] [address] OFFICE VISIT Date of Service: 01/27/25 MR#: [id number] Acct: [id number] Name: HEATHER ANGEL Rep #: [id number] : 1995 Provider: MAX Jerez ams Age/Sex: 29/F [place] [facility] [place]: Signed Intake Vital Signs 09/03/24 06:10 01/27/25 10:32 Height 5 ft 3 in 5 ft 3 in Weight: 142 lb 6 oz BMI 25.2 BP 115/75 Intake Visit Reasons: NOB LMP 4/2 Chief Complaint: New OB Water Trainer Required: No Is patient in pain?: No Allergies No Known Allergies Allergy (Verified 01/27/25 10:30) Medications ???Medication ???Instructions ???Recorded ???Confirmed ???Type PNV no.151-iron 27 mg-folic 800 cap PO 09/10/22 01/27/25 History mcg-omega3 260 lf-icl-vic-fish capsule omega-3 fatty acids 600 mg PO DAILY 04/10/23 01/27/25 History Last Menstrual Period: 11/24/24 PFSH PFSH Medical History Galactosemia Biotinidase deficiency Abnormal biopsy result Family History Grandfather Cancer unknown type Grandmother Hypertension Ovarian cancer Paternal Grandfather Hypertension Grandmother Asthma Father Hypertension Social History adopted: No household members: spouse and children number of children: 2 current occupation: [employer] current occupational exposures/hazards: No pets and [...] 1-2 times per week duration: 15-30 minutes/day gabriela/faith: Lutheran seatbelt use: always do you feel safe at home: Yes 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 Normal [facility] Platelet countOrdered By: Merlin Knight on 01-27-2025 Platelets (Bld) [#/Vol] 163 10*3/uL 150-450 [facility] RBC Auto (Bld) [#/Vol]Ordere d By: Jeanine Knight on 01-27-2025 RBC (Bld) [#/Vol] 4.39 10*6/uL 4.2-5.4 [facility] Syphilis Antibodieson 2024 Syphilis Abs Non-Reactive Normal Nonreactive [facility] Comment on above: Performed By: #### M 100.2200 #### [facility] Laboratory [address], [place], [id number] Type AND Screenon 01-27-2025 Ab SCREEN GEL Negative Normal [facility] Comment on above: Order Comment: PN Performed By: #### M 100.2200 #### [facility] [address] [place], [address] Urine cultureOrdered By: Gerard Knight on 01-27-2025 Bacteria identified Cx Nom (U) Mixed Gram Pos & Gram Neg Org Abnormal [facility] White blood cell (WBC) count Ordered By: Jeanine Knight on 01-27-2025 WBC (Bld) [#/Vol] 5.1 10*3/uL 4.4-11.0 [facility] CNOVon 09-14-2024 CNOV Office Visit (UCWSTR ) -- HEATHER ANGEL ([id number]) 1995 F Date Time Provider Department 09/14/24 7:30 PM LEIA MCDONOUGH [facility] During your visit today, we recorded the following information about you: Temperature Pulse Respiration Blood pressure 99.2 degrees 112/minute 16/minute 110/72 Weight 64.3 kg Leia Mcdonough APRN.NETWORKS COMPUTER CONSULTANT 09/14/2024 7:54 PM Signed Subjective Male with complaints of itching rash all over her entire body. It is in different sections. Patient says she did use some new gain beads. Patient did eat fish that she does not normally eat. Patient denies any difficulty breathing or swallowing. Patient denies any other symptoms at this time. The history is provided by the patient. No bilingual speech language pathologist was used. Rash Review of Systems Constitutional: [...] Patient agreeable to care plan. Leia Mcdonough APRN.NETWORKS COMPUTER CONSULTANT Allergies As of Date: 09/14/2024 (No Known Allergies) Date Reviewed: 09/14/2024 Reviewed by: Tova Ibrahim MA - Fully Assessed Reason for Visit: Rash [1087] Cmt: all over x 1 day Primary Visit Diagnosis:Sore throat [J02.9] Other Visit Diagnosis:Rash [R21] Order(s):STREP A MOLECULAR (POC) [1120432] Order #: [id number]. #:[id number] 1-LAB predniSONE (DELTASONE) 10 mg tabletTake 4 tabs daily for 3 days, then 2 tabs daily for 3 days, then 1 tab daily for 3 days with food.Disp: 21 tabletRfl: 0 famotidine (PEPCID) 20 mg tabletTake 1 tablet by mouth two times a day for 7 days.Disp: 14 tabletRfl: 0 LYME AB EARLY <=30 DAY SYMPTOMS [SQLMERLY] Order #: [id number] FUTURE Prescriptions as of 09/14/2024 - Docosahexanoic [...] STREP A MOLECULAR (POC)on Procedural Control Valid [facility] Strep A (POCT) Negative Negative [facility] Urine Cultureon 09-04-2024 URC Culture exhibits no growth. Normal [facility] Comment on above: Performed By: #### M 100.3916 #### [facility] Laboratory [address] [place], [place], [id number] Urgent Care Visit Reporton 0 09-03-2024 Urgent Care Visit Report [facility] [address] [facility], [address] [place] [address] OFFICE VISIT Date of Service: 09/03/24 MR#: [id number] Acct: [id number] Name: HEATHER ANGEL Rep #: [id number] : 1995 Provider: HOWARD Zimmer Age/Sex: 29/F [place] [facility] Status: Signed Intake Vital Signs 06/08/24 08:55 09/03/24 06:10 Height 5 ft 3 in 5 ft 3 in BP 104/58 L Blood Pressure Location Lt brachial Position Sitting Respiration 14 Pulse 78 Pulse Source NIBP Temp 97.8 F Temp Source Oral Pulse Oximetry (%) 100 Oxygen Delivery Method room air Intake Visit Reasons: Urinary tract infection Chief Complaint: dysuria, urgency Water Trainer Required: No Is patient in pain?: No Allergies No Known Allergies Allergy (Verified 09/03/24 06:26) Is last menstrual period known: No Post menopausal: No Patient : No Have you fallen in the past year?: No Nurse's Note: dysuria, urgency since 0300. denies abd pain, back pain, fever, blood. 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 Family History Grandfather Cancer unknown type Grandmother Hypertension Ovarian cancer Paternal Grandfather Hypertension Grandmother Asthma Social History adopted: No household members: spouse and children number of children: 1 current occupational status: unemployed current occupation: [employer] pets and animals: Yes pets and animals: dog(s) history of recent travel: No sexually active: Yes Smoking Status: Never smoker alcohol intake: never substance use type: does not use well-balanced diet: daily or most days caffeine: No eating out: rarely or never during the past year weight has: decreased > 10 lbs what type of physical activity do you participate in: none gabriela/faith: Lutheran seatbelt use: always do you feel safe at home: Yes additional 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 Normal [facility] Absolute lymphocyte countOrd ered By: Jeanine Knight on 04-28-2023 Lymphocytes Auto (Unsp spec) [#/Vol] 1.74 10*3/uL 0.83-4.51 [facility] Basophil percentageOrdered B y: Jeanine Knight on 04-28-2023 Basophils/100 WBC (Bld) 0.3 % 0-1 [facility] Eosinophils/100 WBC (Bld) 0.7 % 0-5 [facility] Neutrophils (Bld) [#/Vol] 6.3 10*3/uL 2.0-7.7 [facility] Neutrophils/100 WBC (Bld) 72.6 % 47-70 [facility] WBC (Bld) [#/Vol] 8.7 10*3/uL 4.4-11.0 [facility] Blood erythrocytes count (nu mber/volume)Ordered By: Jeanine Knight on 04-28-2023 RBC (Bld) [#/Vol] 4.01 10*6/uL 4.2-5.4 [facility] Blood hemoglobin measurement (mass/volume)Ordered By: Jeanine Knight on 04-28-2023 Hemoglobin (Bld) [Mass/Vol] 11.8 g/dL 12.0-15.0 [facility] Blood lymphocytes/100 leukoc ytesOrdered By: Jeanine Knigth on 04-28-2023 Lymphocytes/100 WBC (Bld) 20.0 % 19-41 [facility] Blood monocytes/100 leukocyt esOrdered By: Jeanine Knight on 04-28-2023 Monocytes/100 WBC (Bld) 5.9 % 0-10 [facility] Blood platelet mean volumeOr dered By: Jeanine Knight on 04-28-2023 Platelet mean volume (Bld) [Entitic vol] 11.5 fL 6.2-12.0 [facility] Determination of erythrocyte mean corpuscular volume (MCV)Ordered By: Jeanine Knight on 04-28-2023 MCV (RBC) [Entitic vol] 88.5 fL 81-99 [facility] Hematocrit Auto (Bld) [Volum e fraction]Ordered By: Jeanine Knight on 04-28-2023 Hematocrit (Bld) [Volume fraction] 35.5 % 37-47 [facility] Laboratory - Hematology and Cell countsOrdered By: Jeanine Knight on 04-28-2023 Erythrocyte distribution width (RBC) [Entitic vol] 39.4 fL 35.1-43.9 [facility] Erythrocyte distribution width (RBC) [Ratio] 12.2 % 11.6-14.6 [facility] Immature granulocytes/100 WBC (Bld) 0.500 % 0.0-0.9 [facility] Comment on above: IG% - Immature Granu locytes (promyelocytes, myelocytes and metamyelocytes) > 1% indicates that a LEFT SHIFT is Present. MCH (RBC) [Entitic mass] 29.4 pg 27.0-32.0 [facility] Nucleated RBC/100 WBC (Bld) [Ratio] 0 % 0-5 [facility] MCHC Auto (RBC) [Mass/Vol]Or dered By: Jeanine Knight on 04-28-2023 MCHC (RBC) [Mass/Vol] 33.2 g/dL 32-36 [facility] Platelets bldOrdered By: Gerard Knight on 04-28-2023 Platelets (Bld) [#/Vol] 123 10*3/uL 150-450 [facility] Laboratory - Chemistry and C hemistry - challengeon 04-22-2023 Glucose Ql (U) Negative [facility] Laboratory - Urinalysison Protein Ql (U) Negative [facility] Absolute lymphocyte countOrd ered By: Ana Wynne on 04-15-2023 Lymphocytes Auto (Unsp spec) [#/Vol] 1.90 10*3/uL 0.83-4.51 [facility] Basophil percentageOrdered B y: Ana Wynne on 04-15-2023 Basophils/100 WBC (Bld) 0.3 % 0-1 [facility] Eosinophils/100 WBC (Bld) 0.6 % 0-5 [facility] Neutrophils (Bld) [#/Vol] 4.2 10*3/uL 2.0-7.7 [facility] Neutrophils/100 WBC (Bld) 62.1 % 47-70 [facility] WBC (Bld) [#/Vol] 6.8 10*3/uL 4.4-11.0 [facility] Blood erythrocytes count (nu mber/volume)Ordered By: Ana Wynne on 04-15-2023 RBC (Bld) [#/Vol] 3.97 10*6/uL 4.2-5.4 [facility] Blood hemoglobin measurement (mass/volume)Ordered By: Ana Wynne on 04-15-2023 Hemoglobin (Bld) [Mass/Vol] 11.8 g/dL 12.0-15.0 [facility] Blood lymphocytes/100 leukoc ytesOrdered By: Ana Wynne on 04-15-2023 Lymphocytes/100 WBC (Bld) 27.9 % 19-41 [facility] Blood monocytes/100 leukocyt esOrdered By: Ana Wynne on 04-15-2023 Monocytes/100 WBC (Bld) 8.4 % 0-10 [facility] Blood platelet mean volumeOr dered By: Ana Wynne on 04-15-2023 Platelet mean volume (Bld) [Entitic vol] 10.9 fL 6.2-12.0 [facility] Determination of erythrocyte mean corpuscular volume (MCV)Ordered By: Ana Wynne on 04-15-2023 MCV (RBC) [Entitic vol] 89.2 fL 81-99 [facility] Hematocrit Auto (Bld) [Volum e fraction]Ordered By: Ana Wynne on 04-15-2023 Hematocrit (Bld) [Volume fraction] 35.4 % 37-47 [facility] Laboratory - Chemistry and C hemistry - challengeon 04-15-2023 Glucose Ql (U) Negative [facility] Laboratory - Hematology and Cell countsOrdered By: Ana Wynne on 04-15-2023 Erythrocyte distribution width (RBC) [Entitic vol] 40.2 fL 35.1-43.9 [facility] Erythrocyte distribution width (RBC) [Ratio] 12.3 % 11.6-14.6 [facility] Immature granulocytes/100 WBC (Bld) 0.700 % 0.0-0.9 [facility] Comment on above: IG% - Immature Granu locytes (promyelocytes, myelocytes and metamyelocytes) > 1% indicates that a LEFT SHIFT is Present. MCH (RBC) [Entitic mass] 29.7 pg 27.0-32.0 [facility] Nucleated RBC/100 WBC (Bld) [Ratio] 0 % 0-5 [facility] Laboratory - Urinalysison Protein Ql (U) Negative [facility] MCHC Auto (RBC) [Mass/Vol]Or dered By: Ana Wynne on 04-15-2023 MCHC (RBC) [Mass/Vol] 33.3 g/dL 32-36 [facility] No Panel InformationOrdered By: Ana Wynne on 04-15-2023 Group B Streptococcus Culture Group B Beta Streptococcus is not isolated. [facility] Platelets bldOrdered By: Honorio Wynne on 04-15-2023 Platelets (Bld) [#/Vol] 132 10*3/uL 150-450 [facility] Basophil percentageOrdered B y: Jeanine Knight on 04-10-2023 Basophil percentage 0 SEEN /hpf 0-5 [facility] Bilirubin Test strip Ql (U)O rdered By: Jeanine Knight on 04-10-2023 Bilirubin Ql (U) Negative Negative [facility] Ketones Test strip Ql (U)Ord ered By: Jeanine Knight on 04-10-2023 Ketones Ql (U) Negative Negative [facility] Mucus LM Ql (Urine sed)Order ed By: Jeanine Knight on 04-10-2023 Mucus Ql (Urine sed) 0 SEEN /hpf [facility] Nitrite Test strip Ql (U)Ord ered By: Jeanine Knight on 04-10-2023 Nitrite Ql (U) Negative Negative [facility] Protein Test strip Ql (U)Ord ered By: Jeanine Knight on 04-10-2023 Protein Ql (U) Negative Negative [facility] Squamous epithelial cells de tection in urine sediment by light microscopyOrdered By: Jeanine Knight on 04-10-2023 Epithelial cells.squamous LM Ql (Urine sed) 0 SEEN /hpf 5-10 [facility] Urine blood detectionOrdered By: Jeanine Knight on 04-10-2023 RBC Ql (U) Negative Negative [facility] RBC Ql (U) 0 SEEN /hpf 0-5 [facility] Urine clarityOrdered By: Gerard Knight on 04-10-2023 Clarity (U) Clear Clear [facility] Urine color determinationOrd ered By: Jeanine Knight on 04-10-2023 Color (U) Yellow Yellow [facility] Urine glucose detectionOrder ed By: Jeanine Knight on 04-10-2023 Glucose Ql (U) Normal mg/dl Normal [facility] Urine leukocyte esterase det ection by dipstickOrdered By: Jeanine Knight on 04-10-2023 Leukocyte esterase Test strip Ql (U) 25 /ul Negative [facility] Urine pHOrdered By: Jeanine mcfarland on 04-10-2023 pH (U) 7.0 [pH] 5.0 - 8.0 [facility] Urine sediment bacteria coun t by microscopy (number/high power field)Ordered By: Jeanine Knight on 04-10-2023 Bacteria LM.HPF (Urine sed) [#/Area] 0 /[HPF] None Seen [facility] Urine specific gravity measu rementOrdered By: Jeanine Knight on 04-10-2023 Specific gravity (U) [Rel density] 1.010 1.002-1.030 [facility] Urobilinogen Auto test strip Ql (U)Ordered By: Jeanine Knight on 04-10-2023 Urobilinogen Ql (U) Normal mg/dl Normal [facility] Laboratory - Chemistry and C hemistry - challengeon 04-01-2023 Glucose Ql (U) Negative [facility] Laboratory - Urinalysison Protein Ql (U) Negative [facility] Absolute lymphocyte countOrd ered By: Aspen Morrison on 03-18-2023 Lymphocytes Auto (Unsp spec) [#/Vol] 1.52 10*3/uL 0.83-4.51 [facility] Basophil percentageOrdered B y: Aspen Morrison on 03-18-2023 Basophils/100 WBC (Bld) 0.4 % 0-1 [facility] Eosinophils/100 WBC (Bld) 1.5 % 0-5 [facility] Neutrophils (Bld) [#/Vol] 4.6 10*3/uL 2.0-7.7 [facility] Neutrophils/100 WBC (Bld) 68.1 % 47-70 [facility] WBC (Bld) [#/Vol] 6.8 10*3/uL 4.4-11.0 [facility] Blood erythrocytes count (nu mber/volume)Ordered By: Aspen Morrison on 03-18-2023 RBC (Bld) [#/Vol] 4.00 10*6/uL 4.2-5.4 [facility] Blood hemoglobin measurement (mass/volume)Ordered By: Aspen Morrison on 03-18-2023 Hemoglobin (Bld) [Mass/Vol] 11.8 g/dL 12.0-15.0 [facility] Blood lymphocytes/100 leukoc ytesOrdered By: Aspen Morrison on 03-18-2023 Lymphocytes/100 WBC (Bld) 22.3 % 19-41 [facility] Blood monocytes/100 leukocyt esOrdered By: Aspen Morrison on 03-18-2023 Monocytes/100 WBC (Bld) 7.3 % 0-10 [facility] Blood platelet mean volumeOr dered By: Aspen Morrison on 03-18-2023 Platelet mean volume (Bld) [Entitic vol] 10.7 fL 6.2-12.0 [facility] Determination of erythrocyte mean corpuscular volume (MCV)Ordered By: Aspen Morrison on 03-18-2023 MCV (RBC) [Entitic vol] 89.3 fL 81-99 [facility] Hematocrit Auto (Bld) [Volum e fraction]Ordered By: Aspen Morrison on 03-18-2023 Hematocrit (Bld) [Volume fraction] 35.7 % 37-47 [facility] Laboratory - Chemistry and C hemistry - challengeon 03-18-2023 Glucose Ql (U) Negative [facility] Laboratory - Hematology and Cell countsOrdered By: Aspen Morrison on 03-18-2023 Erythrocyte distribution width (RBC) [Entitic vol] 39.7 fL 35.1-43.9 [facility] Erythrocyte distribution width (RBC) [Ratio] 12.1 % 11.6-14.6 [facility] Immature granulocytes/100 WBC (Bld) 0.400 % 0.0-0.9 [facility] Comment on above: IG% - Immature Granu locytes (promyelocytes, myelocytes and metamyelocytes) > 1% indicates that a LEFT SHIFT is Present. MCH (RBC) [Entitic mass] 29.5 pg 27.0-32.0 [facility] Nucleated RBC/100 WBC (Bld) [Ratio] 0 % 0-5 [facility] Laboratory - Urinalysison Protein Ql (U) Negative [facility] MCHC Auto (RBC) [Mass/Vol]Or dered By: Aspen Morrison on 03-18-2023 MCHC (RBC) [Mass/Vol] 33.1 g/dL 32-36 [facility] Platelets bldOrdered By: Diana Morrison on 03-18-2023 Platelets (Bld) [#/Vol] 134 10*3/uL 150-450 [facility] Laboratory - Chemistry and C hemistry - challengeon 03-04-2023 Glucose Ql (U) Negative [facility] Laboratory - Urinalysison Protein Ql (U) Negative [facility] Absolute lymphocyte countOrd ered By: Jeanine Knight on 02-18-2023 Lymphocytes Auto (Unsp spec) [#/Vol] 1.45 10*3/uL 0.83-4.51 [facility] Basophil percentageOrdered B y: Jeanine Knight on 02-18-2023 Basophils/100 WBC (Bld) 0.7 % 0-1 [facility] Eosinophils/100 WBC (Bld) 1.3 % 0-5 [facility] Neutrophils (Bld) [#/Vol] 4.0 10*3/uL 2.0-7.7 [facility] Neutrophils/100 WBC (Bld) 66.3 % 47-70 [facility] WBC (Bld) [#/Vol] 6.1 10*3/uL 4.4-11.0 [facility] Blood erythrocytes count (nu mber/volume)Ordered By: Jeanine Knight on 02-18-2023 RBC (Bld) [#/Vol] 3.81 10*6/uL 4.2-5.4 [facility] Blood hemoglobin measurement (mass/volume)Ordered By: Jeanine Knight on 02-18-2023 Hemoglobin (Bld) [Mass/Vol] 11.4 g/dL 12.0-15.0 [facility] Blood lymphocytes/100 leukoc ytesOrdered By: Jeanine Knight on 02-18-2023 Lymphocytes/100 WBC (Bld) 23.8 % 19-41 [facility] Blood monocytes/100 leukocyt esOrdered By: Jeanine Knight on 02-18-2023 Monocytes/100 WBC (Bld) 7.1 % 0-10 [facility] Blood platelet mean volumeOr dered By: Jeanine Knight on 02-18-2023 Platelet mean volume (Bld) [Entitic vol] 10.5 fL 6.2-12.0 [facility] Determination of erythrocyte mean corpuscular volume (MCV)Ordered By: Jeanine Knight on 02-18-2023 MCV (RBC) [Entitic vol] 88.2 fL 81-99 [facility] Gestational diabetes screen 1-hour screen with 50g oral glucose loadOrdered By: Jeanine Knight on 02-18-2023 Glucose 1 Hr post 50 g glucose PO [Mass/Vol] 106 mg/dL 70-140 [facility] HIV 1 and HIV-2 antibody ass ay with HIV-1 p24 antigen detectionOrdered By: Jeanine Knight on 02-18-2023 HIV 1+2 Ab+HIV1 p24 Ag IA Ql Non-Reactive Nonreactive [facility] Hematocrit Auto (Bld) [Volum e fraction]Ordered By: Jeanine Knight on 02-18-2023 Hematocrit (Bld) [Volume fraction] 33.6 % 37-47 [facility] Laboratory - Hematology and Cell countsOrdered By: Jeanine Knight on 02-18-2023 Erythrocyte distribution width (RBC) [Entitic vol] 38.8 fL 35.1-43.9 [facility] Erythrocyte distribution width (RBC) [Ratio] 12.2 % 11.6-14.6 [facility] Immature granulocytes/100 WBC (Bld) 0.800 % 0.0-0.9 [facility] Comment on above: IG% - Immature Granu locytes (promyelocytes, myelocytes and metamyelocytes) > 1% indicates that a LEFT SHIFT is Present. MCH (RBC) [Entitic mass] 29.9 pg 27.0-32.0 [facility] Nucleated RBC/100 WBC (Bld) [Ratio] 0 % 0-5 [facility] MCHC Auto (RBC) [Mass/Vol]Or dered By: Jeanine Knight on 02-18-2023 MCHC (RBC) [Mass/Vol] 33.9 g/dL 32-36 [facility] Platelets bldOrdered By: Gerard Knight on 02-18-2023 Platelets (Bld) [#/Vol] 139 10*3/uL 150-450 [facility] Serum Treponema species anti body detectionOrdered By: Jeanine Knight on 02-18-2023 Treponema sp Ab Ql (S) Non-Reactive [facility] Laboratory - Chemistry and C hemistry - challengeon 01-21-2023 Glucose Ql (U) Negative [facility] Laboratory - Urinalysison Protein Ql (U) Negative [facility] Laboratory - Chemistry and C hemistry - challengeon 12-24-2022 Glucose Ql (U) Negative [facility] Laboratory - Urinalysison Protein Ql (U) Negative [facility] Laboratory - Chemistry and C hemistry - challengeon 11-25-2022 Glucose Ql (U) Negative [facility] Laboratory - Urinalysison Protein Ql (U) Negative [facility] Laboratory - Chemistry and C hemistry - challengeon 10-29-2022 Glucose Ql (U) Negative [facility] Laboratory - Urinalysison Protein Ql (U) Negative [facility] Absolute lymphocyte countOrd ered By: Dr. Wynne on 10-01-2022 Lymphocytes Auto (Unsp spec) [#/Vol] 1.60 10*3/uL 0.83-4.51 [facility] Basophil percentageOrdered B y: Dr. Wynne on 10-01-2022 Basophils/100 WBC (Bld) 0.8 % 0-1 [facility] Eosinophils/100 WBC (Bld) 2.1 % 0-5 [facility] Neutrophils (Bld) [#/Vol] 2.7 10*3/uL 2.0-7.7 [facility] Neutrophils/100 WBC (Bld) 57.0 % 47-70 [facility] WBC (Bld) [#/Vol] 4.8 10*3/uL 4.4-11.0 [facility] Blood erythrocytes count (nu mber/volume)Ordered By: Dr. Wynne on 10-01-2022 RBC (Bld) [#/Vol] 4.23 10*6/uL 4.2-5.4 [facility] Blood hemoglobin measurement (mass/volume)Ordered By: Dr. Wynne on 10-01-2022 Hemoglobin (Bld) [Mass/Vol] 12.2 g/dL 12.0-15.0 [facility] Blood lymphocytes/100 leukoc ytesOrdered By: Dr. Wynne on 10-01-2022 Lymphocytes/100 WBC (Bld) 33.4 % 19-41 [facility] Blood monocytes/100 leukocyt esOrdered By: Dr. Wynne on 10-01-2022 Monocytes/100 WBC (Bld) 6.5 % 0-10 [facility] Blood platelet mean volumeOr dered By: Dr. Wynne on 10-01-2022 Platelet mean volume (Bld) [Entitic vol] 10.2 fL 6.2-12.0 [facility] Determination of erythrocyte mean corpuscular volume (MCV)Ordered By: Dr. Wynne on 10-01-2022 MCV (RBC) [Entitic vol] 84.2 fL 81-99 [facility] HIV 1 and HIV-2 antibody ass ay with HIV-1 p24 antigen detectionOrdered By: Dr. Wynne on 10-01-2022 HIV 1+2 Ab+HIV1 p24 Ag IA Ql Non-Reactive Nonreactive [facility] Hematocrit Auto (Bld) [Volum e fraction]Ordered By: Dr. Wynne on 10-01-2022 Hematocrit (Bld) [Volume fraction] 35.6 % 37-47 [facility] Laboratory - Chemistry and C hemistry - challengeon 10-01-2022 Glucose Ql (U) Negative [facility] Laboratory - Hematology and Cell countsOrdered By: Dr. Wynne on 10-01-2022 Erythrocyte distribution width (RBC) [Entitic vol] 36.5 fL 35.1-43.9 [facility] Erythrocyte distribution width (RBC) [Ratio] 12.0 % 11.6-14.6 [facility] Immature granulocytes/100 WBC (Bld) 0.200 % 0.0-0.9 [facility] Comment on above: IG% - Immature Granu locytes (promyelocytes, myelocytes and metamyelocytes) > 1% indicates that a LEFT SHIFT is Present. MCH (RBC) [Entitic mass] 28.8 pg 27.0-32.0 [facility] Nucleated RBC/100 WBC (Bld) [Ratio] 0 % 0-5 [facility] Laboratory - Urinalysison Protein Ql (U) Negative [facility] MCHC Auto (RBC) [Mass/Vol]Or dered By: Dr. Wynne on 10-01-2022 MCHC (RBC) [Mass/Vol] 34.3 g/dL 32-36 [facility] No Panel InformationOrdered By: Dr. Wynne on 10-01-2022 Hepatitis B Surface Antigen Non-Reactive Nonreactive [facility] Hepatitis C Antibody Non-Reactive Nonreactive [facility] Comment on above: Non Reactive: < 0.8 Equivocal: >/= 0.8 to < 1.0 Reactive: >/= 1.0The CDC recommends that a reactive/equivocal HCV antibody result be followed up by the HCV Nucleic Acid Amplificationtest (500545) Rubella IgG Antibody Reactive Nonreactive [facility] Comment on above: Antibody Results Int erpretation of Immune Status Non Reactive Presumed Non-Immune Equivocal Equivocal Reactive Presumed Immune Platelets bldOrdered By: Dr. Wynne on 10-01-2022 Platelets (Bld) [#/Vol] 153 10*3/uL 150-450 [facility] Serum Treponema species anti body detectionOrdered By: Dr. Wynne on 10-01-2022 Treponema sp Ab Ql (S) Non-Reactive [facility] Culture, urineOrdered By: Dr Thom Wynne on 09-18-2022 Bacteria identified Cx Nom (U) Culture exhibits no growth. [facility] Chlamydia trachomatis rRNA d etection by probe and target amplification methodOrdered By: Dr. Wynne on 09-16-2022 C. trachomatis rRNA AUDRA+probe Ql (Unsp spec) Negative Negative [facility] Laboratory - Microbiology an d Antimicrobial susceptibilityOrdered By: Dr. Wynne on 09-16-2022 N. gonorrhoeae DNA AUDRA+probe Ql (Unsp spec) Negative Negative [facility] Comment on above: Performed at: [address] [id number] Director: Whitley Anthony MD, Phone: [phone] Culture, urineOrdered By: Dr Thom Wynne on 09-15-2022 Bacteria identified Cx Nom (U) Culture exhibits no growth. [facility] Laboratory - Chemistry and C hemistry - challengeon 09-12-2022 Bilirubin Ql (U) Negative [facility] Glucose Ql (U) Negative [facility] Ketones Ql (U) Negative [facility] Urobilinogen (U) [Mass/Vol] Negative [facility] Laboratory - Hematology and Cell countson 09-12-2022 Hemoglobin Ql (U) Negative [facility] Laboratory - Specimen inform ationon 09-12-2022 Clarity (U) Clear [facility] Color (U) YELLOW [facility] Laboratory - Urinalysison Nitrite Ql (U) Negative [facility] Protein Ql (U) Negative [facility] No Panel Informationon 09-12 Urine Leukocytes Positive [facility] Urine pH 6.0. [facility] Culture, urineOrdered By: St kanchan Jefferson on 09-04-2022 Bacteria identified Cx Nom (U) Escherichia coli [facility] Basophil percentageOrdered B y: Elijah Jefferson on 09-02-2022 Basophil percentage 50-100 SEEN /hpf 0-5 [facility] Bilirubin Test strip Ql (U)O rdered By: Elijah Jefferson on 09-02-2022 Bilirubin Ql (U) Negative Negative [facility] Ketones Test strip Ql (U)Ord ered By: Elijah Jefferson on 09-02-2022 Ketones Ql (U) 50 mg/dl Negative [facility] Laboratory - Chemistry and C hemistry - challengeon 09-02-2022 HCG ( test) Ql (U) Positive [facility] Bilirubin Ql (U) Negative [facility] Glucose Ql (U) Negative [facility] Ketones Ql (U) Large (80+) [facility] pH (U) 6.0 [pH] [facility] Specific gravity (U) [Rel density] 1.005 [facility] Urobilinogen (U) [Mass/Vol] Negative [facility] Laboratory - Hematology and Cell countson 09-02-2022 Hemoglobin Ql (U) Hemolyzed [facility] Laboratory - Specimen inform ationon 09-02-2022 Clarity (U) Cloudy [facility] Color (U) YELLOW [facility] Laboratory - Urinalysison Nitrite Ql (U) Negative [facility] Protein Ql (U) Negative [facility] Mucus LM Ql (Urine sed)Order ed By: Elijah Jefferson on 09-02-2022 Mucus Ql (Urine sed) 0 SEEN /hpf [facility] Nitrite Test strip Ql (U)Ord ered By: Elijah Jefferson on 09-02-2022 Nitrite Ql (U) Negative Negative [facility] No Panel Informationon 09-02 Urine Leukocytes Positive [facility] Urine Non-Hemolyzed Blood Small [facility] Protein Test strip Ql (U)Ord ered By: Elijah Jefferson on 09-02-2022 Protein Ql (U) 30 mg/dl Negative [facility] Squamous epithelial cells de tection in urine sediment by light microscopyOrdered By: Elijah Jefferson on 09-02-2022 Epithelial cells.squamous LM Ql (Urine sed) 0 SEEN /hpf 5-10 [facility] Urine blood detectionOrdered By: Elijah Jefferson on 09-02-2022 RBC Ql (U) 10 /ul Negative [facility] RBC Ql (U) 0-5 SEEN /hpf 0-5 [facility] Urine clarityOrdered By: Ari Jefferson on 09-02-2022 Clarity (U) Clear Clear [facility] Urine color determinationOrd ered By: Elijah Jefferson on 09-02-2022 Color (U) Yellow Yellow [facility] Urine glucose detectionOrder ed By: Elijah Jefferson on 09-02-2022 Glucose Ql (U) Normal mg/dl Normal [facility] Urine leukocyte esterase det ection by dipstickOrdered By: Elijah Jefferson on 09-02-2022 Leukocyte esterase Test strip Ql (U) 500 /ul Negative [facility] Urine pHOrdered By: Elijah cox on 09-02-2022 pH (U) 6.5 [pH] 5.0 - 8.0 [facility] Urine sediment bacteria coun t by microscopy (number/high power field)Ordered By: Elijah Jefferson on 09-02-2022 Bacteria LM.HPF (Urine sed) [#/Area] 2 /[HPF] None Seen [facility] Urine specific gravity measu rementOrdered By: Elijah Jefferson on 09-02-2022 Specific gravity (U) [Rel density] 1.005 1.002-1.030 [facility] Urobilinogen Auto test strip Ql (U)Ordered By: Elijah Jefferson on 09-02-2022 Urobilinogen Ql (U) Normal mg/dl Normal [facility] Absolute lymphocyte counton 11-15-2021 Lymphocytes Auto (Unsp spec) [#/Vol] 1.78 10*3/uL 0.83-4.51 [facility] Work Phone: Basophil percentageon 2021 Basophils/100 WBC (Bld) 0.7 % 0-1 [facility] Work Phone: Eosinophils/100 WBC (Bld) 3.3 % 0-5 [facility] Work Phone: Neutrophils (Bld) [#/Vol] 1.9 10*3/uL 2.0-7.7 [facility] Work Phone: Neutrophils/100 WBC (Bld) 45.7 % 47-70 [facility] Work Phone: WBC (Bld) [#/Vol] 4.2 10*3/uL 4.4-11.0 [facility] Work Phone: Blood erythrocytes count (nu mber/volume)on 11-15-2021 RBC (Bld) [#/Vol] 4.26 10*6/uL 4.2-5.4 [facility]: Blood hemoglobin measurement (mass/volume)on 11-15-2021 Hemoglobin (Bld) [Mass/Vol] 12.7 g/dL 12.0-15.0 [facility] Work Phone: Blood lymphocytes/100 leukoc yteson 11-15-2021 Lymphocytes/100 WBC (Bld) 42.3 % 19-41 [facility] Work Phone: Blood monocytes/100 leukocyt eson 11-15-2021 Monocytes/100 WBC (Bld) 7.8 % 0-10 [facility] Work Phone: [phone] Blood platelet mean volumeon 11-15-2021 Platelet mean volume (Bld) [Entitic vol] 9.6 fL 6.2-12.0 [facility] Work Phone: [phone] Determination of erythrocyte mean corpuscular volume (MCV)on 11-15-2021 MCV (RBC) [Entitic vol] 87.8 fL 81-99 [facility] Work Phone: [phone] Hematocrit Auto (Bld) [Volum e fraction]on 11-15-2021 Hematocrit (Bld) [Volume fraction] 37.4 % 37-47 [facility] Work Phone: [phone] Laboratory - Hematology and Cell countson 11-15-2021 Erythrocyte distribution width (RBC) [Entitic vol] 37.2 fL 35.1-43.9 [facility] Work Phone: [phone] Erythrocyte distribution width (RBC) [Ratio] 11.5 % 11.6-14.6 [facility] Work Phone: [phone] Immature granulocytes/100 WBC (Bld) 0.200 % 0.0-0.9 [facility] Work Phone: [phone] Comment on above: IG% - Immature Granu locytes (promyelocytes, myelocytes and metamyelocytes) > 1% indicates that a LEFT SHIFT is Present. MCH (RBC) [Entitic mass] 29.8 pg 27.0-32.0 [facility] Work Phone: Nucleated RBC/100 WBC (Bld) [Ratio] 0 % 0-5 [facility] Work Phone: MCHC Auto (RBC) [Mass/Vol]on 11-15-2021 MCHC (RBC) [Mass/Vol] 34.0 g/dL 32-36 [facility]: Platelets bldon 11-15-2021 Platelets (Bld) [#/Vol] 166 10*3/uL 150-450 [facility] Work Phone: Absolute lymphocyte counton 10-03-2021 Lymphocytes Auto (Unsp spec) [#/Vol] 1.16 10*3/uL 0.83-4.51 [facility] Work Phone: Basophil percentageon 2021 Basophils/100 WBC (Bld) 0.1 % 0-1 [facility] Work Phone: Eosinophils/100 WBC (Bld) 0.1 % 0-5 [facility] Work Phone: Neutrophils (Bld) [#/Vol] 13.9 10*3/uL 2.0-7.7 [facility] Work Phone: Neutrophils/100 WBC (Bld) 85.2 % 47-70 [facility] Work Phone: WBC (Bld) [#/Vol] 16.3 10*3/uL 4.4-11.0 [facility] Work Phone: Blood erythrocytes count (nu mber/volume)on 10-03-2021 RBC (Bld) [#/Vol] 3.19 10*6/uL 4.2-5.4 [facility] Work Phone: Blood hemoglobin measurement (mass/volume)on 10-03-2021 Hemoglobin (Bld) [Mass/Vol] 9.7 g/dL 12.0-15.0 [facility] Work Phone: Blood lymphocytes/100 leukoc yteson 10-03-2021 Lymphocytes/100 WBC (Bld) 7.1 % 19-41 [facility] Work Phone: Blood monocytes/100 leukocyt eson 10-03-2021 Monocytes/100 WBC (Bld) 6.9 % 0-10 [facility] Work Phone: Blood platelet mean volumeon 10-03-2021 Platelet mean volume (Bld) [Entitic vol] 11.7 fL 6.2-12.0 [facility] Work Phone: Determination of erythrocyte mean corpuscular volume (MCV)on 10-03-2021 MCV (RBC) [Entitic vol] 86.2 fL 81-99 [facility] Work Phone: Hematocrit Auto (Bld) [Volum e fraction]on 10-03-2021 Hematocrit (Bld) [Volume fraction] 27.5 % 37-47 [facility] Work Phone: [phone] Laboratory - Hematology and Cell countson 10-03-2021 Erythrocyte distribution width (RBC) [Entitic vol] 38.6 fL 35.1-43.9 [facility] Work Phone: Erythrocyte distribution width (RBC) [Ratio] 12.2 % 11.6-14.6 [facility] Work Phone: Immature granulocytes/100 WBC (Bld) 0.600 % 0.0-0.9 [facility] Work Phone: [phone] Comment on above: IG% - Immature Granu locytes (promyelocytes, myelocytes and metamyelocytes) > 1% indicates that a LEFT SHIFT is Present. MCH (RBC) [Entitic mass] 30.4 pg 27.0-32.0 [facility] Work Phone: Nucleated RBC/100 WBC (Bld) [Ratio] 0 % 0-5 [facility] Work Phone: MCHC Auto (RBC) [Mass/Vol]on 10-03-2021 MCHC (RBC) [Mass/Vol] 35.3 g/dL 32-36 [facility] Work Phone: Platelets bldon 10-03-2021 Platelets (Bld) [#/Vol] 124 10*3/uL 150-450 [facility] Work Phone: No Panel Informationon 10-01 SARS-CoV-2 Antigen (Rapid) [facility] Work Phone: Vaginal Amniotic Fluid Detection Positive Negative [facility] Work Phone: Comment on above: Amniotic fluid prese nt indicates rupture of Membranes. RESULTS CALLED TO MACHO MARIN RN WP 10/01/[id number] Ever Khalil.REPORT READ BACK BY SAME . Laboratory - Chemistry and C hemistry - challengeon 09-25-2021 Glucose Ql (U) Negative [facility] Work Phone: Laboratory - Urinalysison Protein Ql (U) Negative [facility] Work Phone: Laboratory - Chemistry and C hemistry - challengeon 09-18-2021 Glucose Ql (U) Negative [facility] Work Phone: Laboratory - Urinalysison Protein Ql (U) Negative [facility] Work Phone: Laboratory - Chemistry and C hemistry - challengeon 09-12-2021 Glucose Ql (U) Negative [facility] Work Phone: Laboratory - Urinalysison Protein Ql (U) Negative [facility] Work Phone: No Panel Informationon 09-04 Group B Streptococcus Culture Group B Beta Streptococcus is not isolated. [facility] Work Phone: Laboratory - Chemistry and C hemistry - challengeon 08-21-2021 Glucose Ql (U) Negative [facility] Work Phone: Laboratory - Urinalysison Protein Ql (U) Negative [facility] Work Phone: Absolute lymphocyte counton 08-07-2021 Lymphocytes Auto (Unsp spec) [#/Vol] 1.34 10*3/uL 0.83-4.51 [facility] Work Phone: Basophil percentageon 2020 Eosinophils/100 WBC (Bld) 1.4 % 0-5 [facility] Work Phone: Neutrophils (Bld) [#/Vol] 5.7 10*3/uL 2.0-7.7 [facility] Work Phone: WBC (Bld) [#/Vol] 8.0 10*3/uL 4.4-11.0 [facility] Work Phone: Blood erythrocytes count (nu mber/volume)on 08-07-2021 RBC (Bld) [#/Vol] 3.99 10*6/uL 4.2-5.4 [facility] Work Phone: Blood hemoglobin measurement (mass/volume)on 08-07-2021 Hemoglobin (Bld) [Mass/Vol] 11.3 g/dL 12.0-15.0 [facility] Work Phone: Blood lymphocytes/100 leukoc yteson 08-07-2021 Lymphocytes/100 WBC (Bld) 16.9 % 19-41 [facility] Work Phone: Blood monocytes/100 leukocyt eson 08-07-2021 Monocytes/100 WBC (Bld) 7.9 % 0-10 [facility] Work Phone: Blood platelet mean volumeon 08-07-2021 Platelet mean volume (Bld) [Entitic vol] 10.6 fL 6.2-12.0 [facility] Work Phone: [phone] Determination of erythrocyte mean corpuscular volume (MCV)on 08-07-2021 MCV (RBC) [Entitic vol] 88.2 fL 81-99 [facility] Work Phone: Hematocrit Auto (Bld) [Volum e fraction]on 08-07-2021 Hematocrit (Bld) [Volume fraction] 35.2 % 37-47 [facility] Work Phone: [phone] Laboratory - Chemistry and C hemistry - challengeon 08-07-2021 Glucose Ql (U) Negative [facility] Work Phone: [phone] Laboratory - Hematology and Cell countson 08-07-2021 Basophils/100 WBC (Unsp spec) 0.4 % 0-1 [facility] Work Phone: [phone] Erythrocyte distribution width (RBC) [Entitic vol] 39.9 fL 35.1-43.9 [facility] Work Phone: [phone] Erythrocyte distribution width (RBC) [Ratio] 12.5 % 11.6-14.6 [facility] Work Phone: Immature granulocytes/100 WBC (Bld) 1.800 % 0.0-0.9 [facility] Work Phone: [phone] Comment on above: IG% - Immature Granu locytes (promyelocytes, myelocytes and metamyelocytes) > 1% indicates that a LEFT SHIFT is Present. MCH (RBC) [Entitic mass] 28.3 pg 27.0-32.0 [facility] Work Phone: [phone] Neutrophils/100 WBC (Bld) 71.6 % 47-70 [facility] Work Phone: Nucleated RBC/100 WBC (Bld) [Ratio] 0 % 0-5 [facility] Work Phone: [phone] Laboratory - Urinalysison Protein Ql (U) Negative [facility] Work Phone: [phone] MCHC Auto (RBC) [Mass/Vol]on 08-07-2021 MCHC (RBC) [Mass/Vol] 32.1 g/dL 32-36 [facility] Work Phone: [phone] Platelets bldon 08-07-2021 Platelets (Bld) [#/Vol] 142 10*3/uL 150-450 [facility] Work Phone: [phone] Laboratory - Chemistry and C hemistry - challengeon 07-25-2021 Glucose Ql (U) Negative [facility] Work Phone: [phone] Laboratory - Urinalysison Protein Ql (U) Negative [facility] Work Phone: Vital Signs Date Time Vital Sign Value Performing Clinician Facility 10-16-2025 14:58-0400 Body height 160.[address] Ada Garcia MD Work Phone: [phone] [place] [address] 06-09-2025 14:58-0400 Body mass index (BMI) [Ratio] 29.2 kg/m2 Dr. Ada Garcia MD Work Phone: [phone] [place] [address] 06-09-2025 14:58-0400 Body weight 74.[address] Ada Garcia MD Work Phone: [phone] [place] [address] 06-09-2025 14:58-0400 Diastolic blood pressure 73 mm[Hg] Dr. Ada Garcia MD Work Phone: [phone] [place] [address] 06-09-2025 14:58-0400 Systolic blood pressure 115 mm[Hg] Dr. Ada Garcia MD Work Phone: [phone] [place] [address] 05-19-2025 12:53-0400 Body height 160.[address] Ada Garcia MD Work Phone: [phone] [place] [address] 05-19-2025 12:53-0400 Body mass index (BMI) [Ratio] 28.2 kg/m2 Dr. Ada Garcia MD Work Phone: [phone] [place] [address] 05-19-2025 12:53-0400 Body weight 72.[address] Ada Garcia MD Work Phone: [phone] [place] [address] 05-19-2025 12:53-0400 Diastolic blood pressure 67 mm[Hg] Dr. Ada Garcia MD Work Phone: [phone] [place] [address] 05-19-2025 12:53-0400 Systolic blood pressure 114 mm[Hg] Dr. Ada Garcia MD Work Phone: [phone] [place] [address] 04-20-2025 10:09-0400 Body height 160.[address] Ada Garcia MD Work Phone: [phone] [place] [address] 04-20-2025 10:04-0400 Body mass index (BMI) [Ratio] 26.9 kg/m2 Dr. Ada Garcia MD Work Phone: [phone] [place] [address] 04-20-2025 10:04-0400 Body weight 69.[address] Ada Garcia MD Work Phone: [phone] [place] [address] 04-20-2025 10:04-0400 Diastolic blood pressure 77 mm[Hg] Dr. Ada Garcia MD Work Phone: [phone] [place] [address] 04-20-2025 10:04-0400 Systolic blood pressure 120 mm[Hg] Dr. Ada Garcia MD Work Phone: [phone])[phone] [place] [address] 03-23-2025 10:38-0400 Body height 160.[address] Ada Garcia MD Work Phone: [phone] [place] [address] 03-23-2025 10:36-0400 Body mass index (BMI) [Ratio] 26.1 kg/m2 Dr. Ada Garcia MD Work Phone: [phone])883-830865 [place] [address] 03-23-2025 10:36-0400 Body weight 66.[address] Ada Garcia MD Work Phone: [phone])[phone] [place] [address] 03-23-2025 10:36-0400 Diastolic blood pressure 70 mm[Hg] Dr. Ada Garcia MD Work Phone: [phone] [place] [address] 03-23-2025 10:36-0400 Systolic blood pressure 123 mm[Hg] Dr. Ada Garcia MD Work Phone: [phone])347-964265 [place] [address] 02-24-2025 15:20-0400 Body height 160.[address] Ada Garcia MD Work Phone: [phone] [place] [address] 02-24-2025 15:20-0400 Body mass index (BMI) [Ratio] 25.4 kg/m2 Dr. Ada Garcia MD Work Phone: [phone] [place] [address] 02-24-2025 15:20-0400 Body weight 65.[address] Ada Garcia MD Work Phone: [phone] [place] [address] 02-24-2025 15:20-0400 Diastolic blood pressure 75 mm[Hg] Dr. Ada Garcia MD Work Phone: [facility] 02-24-2025 15:20-0400 Systolic blood pressure 119 mm[Hg] Dr. Ada Garcia MD Work Phone: [facility] 01-27-2025 10:32-0400 Body height 160.[address] Ada Garcia MD Work Phone: [facility] 01-27-2025 10:32-0400 Body mass index (BMI) [Ratio] 25.2 kg/m2 Dr. Ada Garcia MD Work Phone: [facility] 01-27-2025 10:32-0400 Body weight 64.[address] Ada Garcia MD Work Phone: [facility] 01-27-2025 10:32-0400 Diastolic blood pressure 75 mm[Hg] Dr. Ada Garcia MD Work Phone: [facility] 01-27-2025 10:32-0400 Systolic blood pressure 115 mm[Hg] Dr. Ada Garcia MD Work Phone: [facility] [facility] 09-14-2024 19:35-0500 Body temperature 99.19 [degF] Leia Mcdonough APRN.NETWORKS COMPUTER CONSULTANT Work Phone: [facility] 09-14-2024 19:35-0500 Body weight 64.3 kg Leia Mcdonough APRN.NETWORKS COMPUTER CONSULTANT Work Phone: [facility] 09-14-2024 19:35-0500 Diastolic blood pressure 72 mm[Hg] Leia Mcdonough APRN.NETWORKS COMPUTER CONSULTANT Work Phone: [facility] 09-14-2024 19:35-0500 Heart rate 112 /min Leia Mcdonough APRN.NETWORKS COMPUTER CONSULTANT Work Phone: [facility] 09-14-2024 19:35-0500 Respiratory rate 16 /min Leia Mcdonough APRN.NETWORKS COMPUTER CONSULTANT Work Phone: [facility] 09-14-2024 19:35-0500 SaO2% (BldA) [Mass fraction] 98 % Leia Mcdonough APRN.NETWORKS COMPUTER CONSULTANT Work Phone: [facility] 09-14-2024 19:35-0500 Systolic blood pressure 110 mm[Hg] Leia Mcdnoough APRN.NETWORKS COMPUTER CONSULTANT Work Phone: [facility] 04-29-2023 08:45-0400 Body temperature 97.6 [degF] MD Ada Garcia [facility] 04-29-2023 08:45-0400 Diastolic blood pressure 75 mm[Hg] MD Ada Garcia [facility] 04-29-2023 08:45-0400 Heart rate 52 /min MD Ada Garcia [facility] 04-29-2023 08:45-0400 Respiratory rate 16 /min MD Ada Garcia [facility] 04-29-2023 08:45-0400 SaO2% (BldA) [Mass fraction] 99 % MD Ada Garcia [facility] 04-29-2023 08:45-0400 Systolic blood pressure 115 mm[Hg] MD Ada Garcia [facility] 04-28-2023 02:29-0400 Body height 160.02 cm MD Ada Garcia [facility] 04-28-2023 02:29-0400 Body mass index (BMI) [Ratio] 31.2 kg/m2 MD Ada Garcia [facility] 04-28-2023 02:29-0400 Body weight 80.01 kg MD Ada Garcia [facility] 04-22-2023 09:59-0400 Body mass index (BMI) [Ratio] 31.4 kg/m2 MD Ada Garcia [facility] 04-22-2023 09:59-0400 Body weight 80.34 kg MD Ada Garcia [facility] 04-22-2023 09:59-0400 Diastolic blood pressure 74 mm[Hg] MD Ada Garcia [facility] 04-22-2023 09:59-0400 Systolic blood pressure 108 mm[Hg] MD Ada Garcia [facility] 04-15-2023 11:01-0400 Body height 160.02 cm MD Ada THAPA [facility] 04-15-2023 10:58-0400 Body mass index (BMI) [Ratio] 31 kg/m2 MD Ada Garcia [facility] 04-15-2023 10:58-0400 Body weight 79.54 kg MD Ada THAPA [facility] 04-15-2023 10:58-0400 Diastolic blood pressure 71 mm[Hg] MD Ada Garcia [facility] 04-15-2023 10:58-0400 Systolic blood pressure 111 mm[Hg] MD Ada Garcia [facility] 04-10-2023 19:25-0400 Body temperature 98.4 [degF] MD Ada Garcia [facility] 04-10-2023 19:24-0400 Diastolic blood pressure 82 mm[Hg] MD Ada Garcia [facility] 04-10-2023 19:24-0400 Heart rate 106 /min MD Ada Garcia [facility] 04-10-2023 19:24-0400 Systolic blood pressure 129 mm[Hg] MD Ada Garcia [facility] 04-10-2023 17:41-0400 Body height 160.02 cm MD Ada Garcia [facility] 04-10-2023 17:41-0400 Body mass index (BMI) [Ratio] 30.4 kg/m2 MD Ada Garcia [facility] 04-10-2023 17:41-0400 Body weight 78 kg MD Ada Garcia [facility] 04-01-2023 09:22-0400 Body mass index (BMI) [Ratio] 30.3 kg/m2 MD Ada Garcia [facility] 04-01-2023 09:22-0400 Body weight 77.67 kg MD Ada Garcia [facility] 04-01-2023 09:22-0400 Diastolic blood pressure 71 mm[Hg] MD Ada Garcia [facility] 04-01-2023 09:22-0400 Systolic blood pressure 117 mm[Hg] MD Ada Garcia [facility] 03-18-2023 11:03-0400 Body height 160.02 cm MD Ada Garcia [facility] 03-18-2023 11:03-0400 Body mass index (BMI) [Ratio] 29.9 kg/m2 MD Ada Garcia [facility] 03-18-2023 11:03-0400 Body weight 76.65 kg MD Ada Garcia [facility] 03-18-2023 11:03-0400 Diastolic blood pressure 74 mm[Hg] MD Ada Garcia [facility] 03-18-2023 11:03-0400 Systolic blood pressure 118 mm[Hg] MD Ada Garcia [facility] 03-04-2023 10:00-0400 Body mass index (BMI) [Ratio] 29.2 kg/m2 MD Ada Garcia [facility] 03-04-2023 10:00-0400 Body weight 75.01 kg MD Ada Garcia [facility] 03-04-2023 10:00-0400 Diastolic blood pressure 68 mm[Hg] MD Ada Garcia [facility] 03-04-2023 10:00-0400 Systolic blood pressure 106 mm[Hg] MD Ada Garcia [facility] 02-18-2023 14:11-0400 Body height 160.02 cm MD Ada Garcia [facility] 02-18-2023 14:11-0400 Body mass index (BMI) [Ratio] 29.2 kg/m2 MD Ada Garcia [facility] 02-18-2023 14:11-0400 Body weight 74.84 kg MD Ada Garcia [facility] 02-18-2023 14:11-0400 Diastolic blood pressure 72 mm[Hg] MD Ada Garcia [facility] 02-18-2023 14:11-0400 Systolic blood pressure 130 mm[Hg] MD Ada Garcia [facility] 01-21-2023 10:00-0400 Body height 160.02 cm MD Ada Garcia [facility] 01-21-2023 10:00-0400 Body mass index (BMI) [Ratio] 28.5 kg/m2 MD Ada Garcia [facility] 01-21-2023 10:00-0400 Body weight 73.08 kg MD Ada Garcia [facility] 01-21-2023 10:00-0400 Diastolic blood pressure 65 mm[Hg] MD Ada Garcia [facility] 01-21-2023 10:00-0400 Systolic blood pressure 102 mm[Hg] MD Ada Garcia [facility] 12-24-2022 09:09-0400 Body mass index (BMI) [Ratio] 27.8 kg/m2 MD Ada Garcia [facility] 12-24-2022 09:09-0400 Body weight 71.21 kg MD Ada Garcia [facility] 12-24-2022 09:09-0400 Diastolic blood pressure 72 mm[Hg] MD Ada Garcia [facility] 12-24-2022 09:09-0400 Systolic blood pressure 115 mm[Hg] MD Ada Garcia [facility] 11-25-2022 09:49-0400 Body mass index (BMI) [Ratio] 26.4 kg/m2 MD Ada Garcia [facility] 11-25-2022 09:49-0400 Body weight 67.58 kg MD Ada Garcia [facility] 11-25-2022 09:49-0400 Diastolic blood pressure 70 mm[Hg] MD Ada Garcia [facility] 11-25-2022 09:49-0400 Systolic blood pressure 132 mm[Hg] MD Ada Garcia [facility] 10-29-2022 08:32-0500 Body mass index (BMI) [Ratio] 26.2 kg/m2 MD Ada Garcia [facility] 10-29-2022 08:32-0500 Body weight 67.18 kg MD Ada Garcia [facility] 10-29-2022 08:32-0500 Diastolic blood pressure 72 mm[Hg] MD dAa Garcia [facility] 10-29-2022 08:32-0500 Systolic blood pressure 132 mm[Hg] MD Ada Garcia [facility] 10-01-2022 08:36-0500 Body height 160.02 cm MD [facility] 10-01-2022 08:36-0500 Body mass index (BMI) [Ratio] 25.8 kg/m2 [facility] 10-01-2022 08:36-0500 Body weight 66.22 kg [facility] 10-01-2022 08:36-0500 Diastolic blood pressure 75 mm[Hg] [facility] 10-01-2022 08:36-0500 Systolic blood pressure 122 mm[Hg] [facility] 09-16-2022 09:19-0500 Body height 160.02 cm [facility] 09-16-2022 09:18-0500 Body mass index (BMI) [Ratio] 25.3 kg/m2 [facility] 09-16-2022 09:18-0500 Body weight 64.86 kg [facility] 09-16-2022 09:18-0500 Diastolic blood pressure 73 mm[Hg] [facility] 09-16-2022 09:18-0500 Systolic blood pressure 123 mm[Hg] [facility] 09-12-2022 14:17-0500 Body height 160.02 cm [facility] 09-12-2022 14:17-0500 Body mass index (BMI) [Ratio] 26 kg/m2 [facility] 09-12-2022 14:17-0500 Body weight 66.67 kg [facility] 09-12-2022 14:17-0500 Diastolic blood pressure 72 mm[Hg] [facility] 09-12-2022 14:17-0500 Systolic blood pressure 107 mm[Hg] [facility] 09-02-2022 16:46-0500 Body mass index (BMI) [Ratio] 25.8 kg/m2 [facility] 09-02-2022 16:46-0500 Body temperature 97.8 [degF] [facility] 09-02-2022 16:46-0500 Body weight 66.22 kg [facility] 09-02-2022 16:46-0500 Diastolic blood pressure 66 mm[Hg] [facility] 09-02-2022 16:46-0500 Heart rate 132 /[facility] 09-02-2022 16:46-0500 Respiratory rate 14 /min [facility] 09-02-2022 16:46-0500 SaO2% (BldA) [Mass fraction] 99 % [facility] 09-02-2022 16:46-0500 Systolic blood pressure 118 mm[Hg] [facility] 11-15-2021 10:03-0400 Body height 162.56 cm [facility] Work Phone: 11-15-2021 10:03-0400 Body mass index (BMI) [Ratio] 27.8 kg/m2 [facility] Work Phone: 11-15-2021 10:03-0400 Body weight 73.48 kg [facility] Work Phone: 11-15-2021 10:03-0400 Diastolic blood pressure 70 mm[Hg] [facility] Work Phone: 11-15-2021 10:03-0400 Systolic blood pressure 106 mm[Hg] [facility] Work Phone: 10-04-2021 08:45-0500 Body temperature 98.3 [degF] [facility] Work Phone: 10-04-2021 08:45-0500 Diastolic blood pressure 70 mm[Hg] [facility]: 10-04-2021 08:45-0500 Heart rate 101 /min [facility] Work Phone: 10-04-2021 08:45-0500 Respiratory rate 18 /min [facility] Work [facility]: 10-04-2021 08:45-0500 Systolic blood pressure 116 mm[Hg] [facility] Work Phone: 10-04-2021 01:26-0500 SaO2% (BldA) [Mass fraction] 99 % MD Caballero [facility] Work Phone: 10-01-2021 20:20-0500 Body mass index (BMI) [Ratio] 33.3 kg/m2 [facility] Work Phone: 10-01-2021 20:20-0500 Body weight 85.27 kg [facility] Work Phone: 09-25-2021 07:59-0500 Body mass index (BMI) [Ratio] 33.5 kg/m2 MD Caballero [facility] Work Phone: 09-25-2021 07:59-0500 Body weight 85.72 kg [facility] Work Phone: 09-25-2021 07:59-0500 Diastolic blood pressure 82 mm[Hg] [facility] Work Phone: 09-25-2021 07:59-0500 Systolic blood pressure 130 mm[Hg] [facility] Work Phone: 09-18-2021 08:21-0500 Body mass index (BMI) [Ratio] 32.5 kg/m2 [facility] Work Phone: 09-18-2021 08:21-0500 Body weight 83.46 kg [facility] Work Phone: 09-18-2021 08:21-0500 Diastolic blood pressure 80 mm[Hg] [facility] Work Phone: 09-18-2021 08:21-0500 Systolic blood pressure 124 mm[Hg] [facility] Work Phone: 09-12-2021 10:51-0500 Body mass index (BMI) [Ratio] 32.6 kg/m2 MD Caballero [facility] Work Phone: 09-12-2021 10:51-0500 Body weight 83.63 kg [facility] Work Phone: 09-12-2021 10:51-0500 Diastolic blood pressure 70 mm[Hg] [facility] Work Phone: 09-12-2021 10:51-0500 Systolic blood pressure 100 mm[Hg] [facility] Work Phone: 09-04-2021 08:19-0500 Body mass index (BMI) [Ratio] 32.4 kg/m2 [facility] Work Phone: 09-04-2021 08:19-0500 Body weight 83 kg [facility] Work Phone: 09-04-2021 08:19-0500 Diastolic blood pressure 70 mm[Hg] [facility] Work Phone: 09-04-2021 08:19-0500 Systolic blood pressure 122 mm[Hg] [facility] Work Phone: 08-21-2021 12:48-0500 Body mass index (BMI) [Ratio] 32.2 kg/m2 [facility] Work Phone: 08-21-2021 12:48-0500 Body weight 82.55 kg [facility] Work Phone: 08-21-2021 12:48-0500 Diastolic blood pressure 80 mm[Hg] MD Caballero [facility] Work Phone: 08-21-2021 12:48-0500 Systolic blood pressure 136 mm[Hg] MD Caballero [facility] Work Phone: 08-07-2021 08:44-0500 Body mass index (BMI) [Ratio] 30.9 kg/m2 MD Caballero [facility] Work Phone: 08-07-2021 08:44-0500 Body weight 79.37 kg MD Caballero [facility] Work Phone: 08-07-2021 08:44-0500 Diastolic blood pressure 60 mm[Hg] MD Caballero [facility] Work Phone: 08-07-2021 08:44-0500 Systolic blood pressure 122 mm[Hg] MD Caballero [facility] Work Phone: 07-25-2021 07:49-0500 Body mass index (BMI) [Ratio] 30.6 kg/m2 [facility] Work Phone: 07-25-2021 07:49-0500 Body weight 78.47 kg MD Caballero [facility] Work Phone: 07-25-2021 07:49-0500 Diastolic blood pressure 86 mm[Hg] MD Caballero [facility] Work Phone: 07-25-2021 07:49-0500 Systolic blood pressure 136 mm[Hg] [facility] Work Phone: Encounters Encounter Date Encounter Type Care Provider Facility Start: 06-23-2025 End: 06-23-2025 ambulatory Ana Wynne [facility] Start: 06-23-2025 End: 06-23-2025 [facility] Start: 06-09-2025 End: 06-09-2025 Patient encounter procedure Jeanine Knight CNM -Laboratory Specimen Work Phone: Start: 06-09-2025 End: 06-09-[address] Ada Garcia MD Work Phone: -[facility] Start: 06-09-2025 End: 06-09-2025 Patient encounter procedure Jeanine Knight CNM -[facility] Work Phone: Start: 06-09-2025 End: 06-09-2025 ambulatory Jeanine Knight Facility:[facility] Start: 05-19-2025 End: 05-19-2025 Patient encounter procedure Aspen Morrison RELIGIOUS ACTIVITIES DIRECTOR-C -[facility] Work Phone: Start: 05-19-2025 End: 05-19-[address] Ada Garcia MD Work Phone: -[facility] Start: 04-20-2025 End: 04-20-2025 Patient encounter procedure Aspen Morrison NP-C -[facility] Work Phone: Start: 04-20-2025 End: 04-20-[address] Ada Garcia MD Work Phone: -[facility] Start: 04-19-2025 End: 04-19-2025 ambulatory JORGE LUIS OCHOA APRN-NETWORKS COMPUTER CONSULTANT Facility:[facility] Start: 04-19-2025 End: 04-19-2025 Patient encounter procedure JORGE LUIS OCHOA APRN-NETWORKS COMPUTER CONSULTANT [facility] Start: 04-14-2025 End: 04-14-[address] Ada Garcia MD Work Phone: -[facility] Start: 04-14-2025 End: 04-14-2025 Patient encounter procedure Jeanine Knight CNM -[facility] Work Phone: Start: 04-14-2025 End: 04-14-2025 ambulatory Jeanine Knight Facility:[facility] Start: 03-23-2025 End: 03-23-[address] Serenity Luna DO -[facility] Work Phone: Start: 03-23-2025 End: 03-23-[address] Ada Garcia MD Work Phone: -[facility] Start: 02-24-2025 End: 02-24-[address] Ana Wynne MD -[facility] Work Phone: Start: 02-24-2025 End: 02-24-[address] Ada Garcia MD Work Phone: -[facility] Start: 01-27-2025 End: 01-27-2025 Patient encounter procedure Jeanine Knight CNM -[facility] Work Phone: Start: 01-27-2025 End: 01-27-[address] Ada Garcia MD Work Phone: [facility] Work Phone: Start: 01-27-2025 End: 01-27-2025 ambulatory Jeanine Knight Facility:[facility] Start: 01-14-2025 Non-patient / Non-visit Kiah Farias RN -[facility] Work Phone: Start: 01-14-2025 ambulatory Kiah Farias [place] [facility] Start: 09-14-2024 End: 09-14-2024 ambulatory ADA GARCIA Facility:[facility] Start: 09-14-2024 End: 09-14-2024 Patient encounter procedure Leia Mcdonough APRN.CNP Work Phone: [facility] Comment on above: Sore throat (Primary Dx); Rash Start: 09-03-2024 End: 09-03-2024 ambulatory Jose Scott Facility:[facility] Start: 09-03-2024 End: 09-03-2024 ambulatory Jose [place] Facility:[facility] Start: 04-29-2023 Non-patient / Non-visit MD Ada THAPA [facility] Start: 04-28-2023 Non-patient / Non-visit MD Ada THAPA [facility] Start: 04-28-2023 End: 04-29-2023 Evaluation and management of inpatient MD Ada THAPA [facility] Work Phone: Start: 04-22-2023 End: 04-22-2023 Patient encounter procedure MD Ada THAPA [facility] Work Phone: Start: 04-15-2023 End: 04-15-2023 ambulatory MD Ada THAPA [facility] Work Phone: Start: 04-15-2023 End: 04-15-2023 Patient encounter procedure MD Ada THAPA [facility] Work Phone: Start: 04-10-2023 Non-patient / Non-visit MD Ada THAPA [facility] Start: 04-10-2023 End: 04-10-2023 ambulatory MD Ada Garcia [facility] Work Phone: Start: 04-10-2023 End: 04-10-2023 Patient encounter procedure MD Ada THAPA [facility] Work Phone: Start: 04-01-2023 End: 04-01-2023 Patient encounter procedure MD Ada THAPA [facility] Work Phone: Start: 03-18-2023 End: 03-18-2023 ambulatory MD Ada THAPA [facility] Work Phone: Start: 03-18-2023 End: 03-18-2023 ambulatory MD Ada THAPA [facility] Work Phone: Start: 03-18-2023 End: 03-18-2023 Patient encounter procedure MD Ada THAPA [facility] Work Phone: Start: 03-04-2023 End: 03-04-2023 Patient encounter procedure MD Ada THAPA [facility] Work Phone: Start: 02-18-2023 End: 02-18-2023 Patient encounter procedure MD Ada THAPA [facility] Work Phone: Start: 02-18-2023 End: 02-18-2023 ambulatory MD Ada THAPA [facility] Work Phone: Start: 02-18-2023 End: 02-18-2023 Patient encounter procedure MD Ada THAPA [facility] Work Phone: Start: 01-21-2023 End: 01-21-2023 ambulatory MD Ada Garcia [facility] Work Phone: Start: 01-21-2023 End: 01-21-2023 Patient encounter procedure MD Ada THAPA [facility] Start: 01-21-2023 End: 01-21-2023 Patient encounter procedure MD Ada THAPA [facility] Start: 12-24-2022 End: 12-24-2022 Patient encounter procedure MD Ada THAPA [facility] Start: 12-12-2022 End: 12-12-2022 ambulatory [facility] Dio BELL [facility] Start: 11-25-2022 End: 11-25-2022 Patient encounter procedure MD Ada THAPA [facility] Start: 10-29-2022 End: 10-29-2022 Patient encounter procedure MD Ada THAPA [facility] Start: 10-01-2022 End: 10-01-2022 ambulatory MD Ada Garcia [facility] Work Phone: Start: 10-01-2022 End: 10-01-2022 Patient encounter procedure MD Ada Garcia [facility] Start: 09-16-2022 End: 09-16-2022 ambulatory MD Ada S [facility] Work Phone: Start: 09-16-2022 End: 09-16-2022 [facility] Start: 09-16-2022 End: 09-16-2022 Patient encounter procedure MD Caballero [facility] Start: 09-12-2022 End: 09-12-2022 ambulatory MD Ada Palmer [facility] Work Phone: Start: 09-12-2022 End: 09-12-2022 Patient encounter procedure MD Caballero [facility], Specimen Start: 09-12-2022 End: 09-12-2022 Patient encounter procedure MD Caballero [facility] Start: 09-02-2022 End: 09-02-2022 ambulatory MD Ada Palmer [facility] Work Phone: Start: 09-02-2022 End: 09-02-2022 Patient encounter procedure MD Caballero [facility]Labor[facility], Specimen Start: 09-02-2022 End: 09-02-2022 Patient encounter procedure MD Caballero [facility] Start: 02-24-2022 ambulatory Rosanna Ramirez APRN.CNP Work Phone: Telemedicine Comment on above: UTI symptoms (Primar y Dx) Start: 11-15-2021 End: 11-15-2021 Patient encounter procedure MD Caballero [facility] Start: 10-04-2021 Non-patient / Non-visit MD Caballero [facility] Start: 10-03-2021 Non-patient / Non-visit MD Caballero [facility] Start: 10-02-2021 Non-patient / Non-visit MD Caballero [facility] Start: 10-01-2021 End: 10-04-2021 Evaluation and management of inpatient MD Caballero [facility] Start: 09-25-2021 End: 09-25-2021 Patient encounter procedure MD Ada Garcia [facility] Start: 09-18-2021 End: 09-18-2021 Patient encounter procedure [facility] Start: 09-12-2021 End: 09-12-2021 Patient encounter procedure MD Caballero [facility] Start: 09-04-2021 End: 09-04-2021 Patient encounter procedure [facility] Start: 09-04-2021 End: 09-04-2021 Patient encounter procedure [facility] Start: 08-21-2021 End: 08-21-2021 Patient encounter procedure [facility] Start: 08-10-2021 Patient encounter procedure [facility] Start: 08-07-2021 End: 08-07-2021 Patient encounter procedure MD Caballero [facility] Start: 07-25-2021 End: 07-25-2021 Patient encounter procedure [facility] Procedures Date Procedure Procedure Detail Performing Clinician Start: 06-09-2025 Serologic test for syphilis Dr. Ada Garcia MD Work Phone: Start: 06-09-[address] Ada riley MD Work Phone: Start: 04-14-2025 Ultrasonography in f irst trimester [...] HCV Quant by PCR testing - HCVPCR #[id number] Non Reactive: < 0.8 Equivocal: >/= 0.8 [...] AARON 30.0 Detection Limit = 1.0Performed at: [address] [id number] Director: Brian Olivares PhD, Phone: [phone] Start: 01-27-[address] Ada Garcia MD Work Phone: Comment on above: Antibody Result: Int erpretationNon-Reactive: Non- ImmuneReactive: ImmuneThe following results were obtained with the [employer] Rubella IgG assay. Results from assays of other manufacturers cannot be used interchangeably. Start: 01-27-2025 Serologic test for syphilis Dr. Ada Garcia MD Work Phone: Start: 09-14-2024 STREP A MOLECULAR (POC) Leia Mcdonough APRN.[facility] Work Phone: Start: 04-15-2023 Group B [...] P,Tdap,Td Vaccine (4 - Td or Tdap) [facility] Start: 05-19-2025 Measurement of gluco se 2 hours after glucose challenge for glucose tolerance test [facility] Start: 05-19-2025 Serologic test for syphilis [facility] Start: 05-19-2025 [facility] Start: 01-27-2025 CBC W Auto Different ial panel - Blood [facility] Start: 01-27-2025 Hepatitis C antibody measurement [facility] Start: 01-27-2025 Lead measurement, quantitative, blood [facility] Start: 01-27-2025 Rubella IgG measurement [facility] Start: 01-27-2025 Serologic test for syphilis [facility] Start: 01-27-2025 [facility] Start: 01-27-2025 Chlamydia deoxyribon ucleic acid detection [facility] Start: 09-14-2024 End: 12-14-2024 Borrelia burgdorferi IgG and IgM panel - Serum LYME AB EARLY <=30 DAY SYMPTOMS Lab Routine Rash Expected: 09/14/2024, Expires: 12/14/2024 [facility] Work Phone: Comment on above: Expected: 09/14/2024 , Expires: 12/14/2024 Start: 04-25-2024 Covid-19 Vaccine ( season) Covid-19 Vaccine ( season) [facility] Start: 04-25-2024 Influenza vaccination Influenza Vacc ine (#1) [facility] Start: 04-29-2023 Patient discharge [facility] Start: 04-28-2023 Administration of bl ood product [facility] Start: 04-28-2023 Administration of medication [facility] Start: 04-28-2023 Application of ice c ollar, cap or bag [facility] Start: 04-28-2023 Catheterization of vein [facility] Start: 04-28-2023 Introduction of urin quin catheter [facility] Start: 04-28-2023 Measuring intake and output [facility] Start: 04-28-2023 Notification of physician [facility] Start: 04-28-2023 Procedure discontinued [facility] Start: 04-28-2023 Provision of activit y privileges [facility] Start: 04-28-2023 Vital signs measurements [facility] Start: 04-28-2023 [facility] Start: 04-28-2023 Admission procedure [facility] Start: 04-10-2023 Nonstress test [facility] Start: 04-10-2023 Obstetric monitoring [facility] Start: 04-10-2023 Vital signs measurements [facility] Start: 04-10-2023 [facility] Start: 04-10-2023 Patient discharge [facility] Start: 09-12-2022 [facility] Start: 04-25-2022 Influenza vaccination INFLUENZA (#1) [facility] Start: 2017 PAP TESTING PAP TESTING [facility] Start: 2017 Screening for malign ant neoplasm of cervix Cervical Cancer Screening [facility] Start: 2015 Hepatitis B Vaccine (1 of 3 - 19+ 3-dose series) Hepatitis B Vaccine (1 of 3 - 19+ 3-dose series) [facility] Start: 2015 Urine microalbumin profile DTAP,TDAP ,TD (1 - Tdap) [facility] Start: 2014 Anxiety Screening Anxiety Screening [facility] Start: 2014 Depression Screening Depression Scre [facility] Start: 2014 HEPATITIS C SCREENING HEPATITIS C [facility] Start: 2014 Hepatitis C screening Hepatitis C [facility] Start: 2014 HIV SCREENING HIV SCREENING [facility] Start: 2014 HIV screening HIV Screening [facility] Start: 2010 PEDS TO ADULT TRANSI TION ANNUAL ASSESSMENT PEDS TO ADULT TRANSITION ANNUAL ASSESSMENT [facility] Start: 2008 Adult depression scr eening assessment DEPRESSION SCREENING [facility] Start: 2008 PEDS TO ADULT TRANSI TION INITIAL DISCUSSION PEDS TO ADULT TRANSITION INITIAL DISCUSSION [facility] Start: 2007 HPV VACCINE (1 - 2-d ose series) HPV VACCINE (1 - 2-dose series) [facility] Start: 2006 MENINGOCOCCAL B: Con petrographer based on risk (1 of 2 - Risk Bexsero 2-dose series) MENINGOCOCCAL B: Consider based on risk (1 of 2 - Risk Bexsero 2-dose series) [facility] Start: 1996 COVID-19 VACCINE (#1) COVID-19 VACCI NE (#1) [facility] ABO and Rh group [Ty pe] in Blood [facility] Bacteria identified in Urine by Culture [facility] Bacteria identified in Urine by Culture Urine Culture [facility] CBC W Auto Different ial panel - Blood [facility] CBC W Auto Different ial panel - Blood [facility] CBC W Auto Different ial panel - Blood [facility] Chlamydia deoxyribon ucleic acid detection [facility] Erythrocyte mean corpuscular volume determination [facility] Glucose [Mass/volume ] in Serum or Plasma --1 hour post 50 g glucose PO [facility] Hematocrit [Volume Fraction] of Blood [facility] Hemoglobin [Mass/vol ume] in Blood [facility] Hepatitis B surface antigen measurement [facility] Hepatitis B virus urbina rface Ag [Presence] in Serum [facility] Hepatitis C antibody measurement [facility] HIV 1+2 Ab+HIV1 p24 Ag [Presence] in Serum or Plasma by Immunoassay [facility] HIV 1+2 Ab+HIV1 p24 Ag [Presence] in Serum or Plasma by Immunoassay [facility] Leukocytes [#/volume ] in Blood [facility] Mean corpuscular hemoglobin concentration determination [facility] Mean corpuscular hemoglobin determination [facility] Neisseria gonorrhoea e rRNA [Presence] in Unspecified specimen by AUDRA with probe detection [facility] Neutrophil count [facility] Neutrophil percent differential count [facility] Patient Education Kick Counts ED False Labor OB Triage: Return to Hospital or Notify Physician if you Experience: [facility] Work Phone: Patient referral [facility] Work Phone: PCR test for Chlamyd ia trachomatis [facility] Platelets [#/volume] in Blood [facility] Red blood cell count [facility] Red cell distributio n width determination [facility] Rubella IgG measurement [facility] Treponema sp Ab [Pre sence] in Serum [facility] Treponema sp Ab [Pre sence] in Serum [facility] Treponema sp Ab [Pre sence] in Serum [facility] Ultrasound scan for growth [facility] Immunizations Immunization Date Immunization Notes Care Provider Fa cility 02-18-2023 tetanus toxoid, redu vira diphtheria toxoid, and acellular pertussis vaccine, adsorbed MD Ada THAPA [facility] 10-03-2021 measles, mumps and rubella virus vaccine [facility] measles/mumps/rubell a virus vaccine JORGE LUIS OCHOA 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 07-11-2021 tetanus toxoid, redu vira diphtheria toxoid, and acellular pertussis vaccine, adsorbed MD Ada Garcia [facility] 07-11-2021 diphtheria, tetanus toxoids and acellular pertussis vaccine, unspecified formulation MD Ada Garcia [facility] Work Phone: Payers Date Payer Category Payer Unknown [id number] 2025 Unknown [id number] 2024 Self-pay [id number] 2024 Unknown DAMIEN SAHU O ZULEIMA [id number] 2024-Present [phone] [address] [place] [address] [facility] [id number] 2024 Unknown [id number] 2024 Private Health Insurance [id number] 2016 Unknown DAMIEN ALVARADO PPO [id number] 2016-Present [phone] [address] [place] [address] PPO [id number] 1996 Unknown [id number] 2.16840.1.860757.3.579.2. 479 1996 Unknown [id number] 2.16840.1.716857.3.579.2. 627 Unknown SELF PAY INSURANCE [id number] Unknown [id number] Unknown [id number] Unknown [id number] Unknown [facility] . [id number] Unknown [id number] 2.16840.1.727436.3.579.2. 462 Unknown [id number] 2.16840.1.282354.3.579.2. 462 Unknown [id number] 2.16.840.1.615561.3.579.2. 462 Unknown [id number] 2.16.840.1.339972.3.579.2. 462 Unknown [id number] 2.16840.1.351235.3.579.2. 462 Unknown [id number] 2.16840.1.046577.3.579.2. 462 Unknown [id number] 2.16.840.1.160954.3.579.2. 462 Unknown [id number] 2.16.840.1.202327.3.579.2. 462 Unknown [id number] 2.16.840.1.850028.3.579.2. 462 Unknown [id number] 2.16.840.1.158171.3.579.2. 462 Unknown [id number] 2.16.840.1.174029.3.579.2. 462 Unknown [id number] 2.16.840.1.083382.3.579.2. 462 Unknown [id number] 2.16.840.1.376634.3.579.2. 462 Unknown [id number] 2.16.840.1.405133.3.579.2. 462 Unknown [id number] 2..840.1.222047.3.579.2. 462 Social History Date Type Detail Facility Start: 11-15-2021 End: 04-28-2023 Tobacco smoking status [facility] Unknown if ever smoked [facility] Start: 1995 Sex Assigned At Female [facility] Start: 12-16-2017 End: 01-14-2025 Tobacco smoking status WVIS Never smoked tobacco [facility] Start: 12-16-2017 End: 09-14-2024 Tobacco use and exposure Smokeless tobacco non-user [facility] Start: 1995 Sex Assigned At Not on file [facility] Start: 08-02-2020 End: 09-14-2024 History of Social function [facility] Start: 08-02-2020 End: 09-14-2024 Tobacco use panel [facility] National Score (1-10 0), lower number is lower risk Not on file [facility] Sexual Orientation Sara Ruiz [place] Sex Female (finding) Sara Cope pital Goals Date Patient Goal Desired Activity /State Clinical Notes 02-24-2022 to 06-09-2025 Note Date & Type Note Facility 06-09-2025 Progress note [facility] 06-09-2025 Progress note Note Date/Time June 09, 2025 3:39pm [facility] [address] [place] [address], [address] [place] [address] OFFICE VISIT Date of Service: 06/09/25 MR#: [id number] Acct: [id number] Name: HEATHER ANGEL Rep #: [id number] : 1995 Provider: MAX Knight Age/Sex: 30/F [place] [facility] Status: Signed Intake Vital Signs 04/20/25 10:09 05/19/25 12:53 06/09/25 14:58 Height 5 ft 3 in 5 ft 3 in 5 ft 3 in Weight: 165 lb 3 oz BMI 29.2 BP 115/73 Intake Visit Reasons: 28 WK OB GLUCOSE/RHOGAM Chief Complaint: 28wk OB Water Trainer Required: No Is patient in pain?: No Allergies No Known Allergies Allergy (Verified 06/09/25 15:01) Medications ?Medication ?Instructions ?Recorded ?Confirmed ?Type PNV no.151-iron 27 mg-folic 800 cap PO 09/10/22 History mcg-omega3 260 rs-ltv-bmi-fish capsule omega-3 fatty acids 600 mg PO DAILY 04/10/23 History Last Menstrual Period: 11/24/24 Have you fallen in the past year?: No PFSH PFSH Medical History Galactosemia Biotinidase deficiency Abnormal biopsy result Family History Grandfather Cancer unknown type Grandmother Hypertension Ovarian cancer Paternal Grandfather Hypertension Grandmother Asthma Father Hypertension Social History adopted: No household members: spouse and children number of children: 2 current occupation: [employer] current occupational exposures/hazards: No pets and [...] 1-2 times per week duration: 15-30 minutes/day gabriela/faith: Lutheran seatbelt use: always do you feel safe at home: Yes 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 Ashu nusrat good movement. Nl anatomy US 05/19/25 -?-?-?-?-?-?--?-?-?-?-?-?- 25w 0d 159 lb 5 oz (+17 lb 5 oz) 114/67 Negative -?-?-?-?-?-?-?-?-?-?-?-?- Negative 141 25 -?-?-?-?-?-?-?-?-?-?-?-?- MH-No Vb, LOF. G ood FM. Larc 06/09/25 -?-?-?-?-?-?-?-?-?-?-?-?- 28w 0d 165 lb 3 oz (+23 lb 3 oz) 115/73 Negative -?-?-?--?-?-?-?-?-?-?-?-?- Negative 155 28 -?-?-?-?-?-?-?-?-?-?-?-?- KW- no vb/lof/ct x. glucose today. Rhogam given. would like to wait on tdap. declines flu ACOG First Trimester First Trimester: Desire for [...] Movement Monitoring, Signs and Symptoms of Preeclampsia, Feeding, Education, Family Medical Leave or Disability Forms and Intimate Partner Violence; Discussed Depression ROS Const Reports system reviewed and no additional complaints, except as documented Eyes Reports system reviewed and no additional complaints, except as documented ENT Reports system reviewed and no additional complaints, except as documented Card Reports system reviewed and no additional complaints, except as documented Resp Reports system reviewed and no additional complaints, except as documented GI Reports system reviewed and no additional complaints, except as documented, Denies nausea and Denies vomiting Reports system reviewed and no additional complaints, except as documented Musc Reports system reviewed and no additional complaints, except as documented Skin/Breast Reports system reviewed and no additional complaints, except as documented Neuro Yes system reviewed and no additional complaints, except as documented Psych Reports system reviewed and no additional complaints, except as documented Endo Reports system reviewed and no additional complaints, except as documented Caesar/Lymph Reports system reviewed and no additional complaints, except as documented Aller/Immun Reports system reviewed and no additional complaints, except as documented Exam Const General: cooperative, healthy appearing and no acute distress Orientation: alert, awake and oriented x3 Neck Neck: normal visual inspection and full ROM Resp Effort & Inspection: normal respiratory effort, able to speak in complete sentences and symmetric chest movement GI Inspection: normal to inspection Palpation: soft and other Other: gravid Skin General: no rashes or lesions noted Neuro General: patient alert, patient awake and patient oriented x3 Cognition: normal cognition Speech: speech normal Gait: normal gait Motor: muscle tone normal throughout Extrem General: normal to inspection and full ROM Psych Appearance: grossly normal Mental Status: mental status grossly normal Mood: congruent mood Affect: normal affect Speech and Movement: speech and movement normal Attitude: cooperative Thought Process: normal Thought Content: normal Judgment: judgment good Office Procedures Injections Is this a patient provided medication?: No Office Meds RhoGAM Ultra-Filtered PLUS 1,500 unit (300 mcg) intramuscular syringe Performing Provider: Jeanine Knight CNM Performing Location: [facility] Administered by: Radha Ohara on 06/09/25 15:08 Dose Route Admin Location Dispensed Lot Number Expiration Date Pack age NDC NDC Crossing Guard 1,500 unit IM Left Gluteal 1 ea [id number] 03/09/27 58361-978-98 [id number] [employer] Results POC Urinalysis Dip (Clinic) Office Urine Color YELLOW Last Edit by Radha Ohara on 06/09/25 15:35 Office Urine Clarity Cloudy Last Edit by Radha Ohara on 06/09/25 15:35 Office Urine Glucose Negative Last Edit by Radha Ohara on 06/09/25 15:35 Office Urine Ketones Negative Last Edit by Radha Ohara on 06/09/25 15:35 Off Ur Spec [place]awson 1.015 Last Edit by Radha Ohara on 06/09/25 15:35 Office Urine pH 8 Last Edit by Radha Ohara on 06/09/25 15:35 Office Urine Bilirubin Negative Last Edit by Radha Ohara on 06/09/25 15:35 Office Urine Urobilinogen Negative Last Edit by Radha Ohara on 06/09/25 15: 35 Office Urine Blood Trace Last Edit by Radha Ohara on 06/09/25 15:35 Office Urine Blood Hemolyzed Negative Last Edit by Radha Ohara on 06/09/25 15:35 Office Urine Protein Negative Last Edit by Radha Ohara on 06/09/25 15:35 Office Urine Nitrate Negative Last Edit by Radha Ohara on 06/09/25 15:35 Off Ur Leukocytes Positive Last Edit by Radha Ohara on 06/09/25 15:35 Coding Level of Care Code OB Routine Diagnoses Lead exposure Z77.011 History of thrombocytopenia Z86.2 Rh negative status during in second trimester O26.892; Z67.91 Trimester: second trimester History of miscarriage, currently O09.299 Supervision of high risk in second trimester O09.92 Trimester: second trimester 28 weeks gestation of Z3A.28 Weeks of gestation: 28 weeks 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 Assessment [...] (5) Supervision of high-risk : Status: Acute Qualifiers: Trimester: second trimester Qualified Code(s): O09.92 - Supervision of high risk , unspecified, second trimester Comment: PRR, ; RONEY 08/31/24; PC: Renae & Iveth; : Bam (6) : Status: Acute Qualifiers: Weeks of gestation: 28 weeks Qualified Code(s): Z3A.28 - 28 weeks gestation of Comment: Discussed genetic/carrier testing - undecided; prior carrier testing done, nl anatomy (7) 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 see problem list details for updated plan management information and see below for orders placed at this visit. [place] appropriate handout given. Clinical Quality Measures Falls Risk Screening/Assistive Devices Have you fallen in the past year?: No 06/09/25 1539 <Electronically signed by Jeanine palmer CNM> Date _ Jeanine Knight CNM [facility] Signature: Date (if applicable) CC: ~ [facility] Work Phone: 1(684) 970-438609-25-2025 [facility] [address] [place] [address], [address] [place], [place] [id number] OFFICE VISIT Date of Service: 05/19/25 MR#: [id number] Acct: [id number] Name: HEATHER ANGEL Rep #: [id number] : 1995 Provider: CAPO Morrison Age/Sex: 30/F [place] [facility] Status: Signed Intake Vital Signs 03/23/25 10:38 04/20/25 10:09 05/19/25 12:53 Height 5 ft 3 in 5 ft 3 in 5 ft 3 in Weight: 159 lb 5 oz BMI 28.2 BP 114/67 Intake Visit Reasons: 25 wk ob Chief Complaint: 25 Week OB Water Trainer Required: No Is patient in pain?: No Allergies No Known Allergies Allergy (Verified 05/19/25 12:57) Medications ?Medication ?Instructions ?Recorded ?Confirmed ?Type PNV no.151-iron 27 mg-folic 800 cap PO 09/10/22 History mcg-omega3 260 qf-bwz-ycj-fish capsule omega-3 fatty acids 600 mg PO DAILY 04/10/23 History Last Menstrual Period: 11/24/24 Zika: Zika virus screening: Negative : Yes PFSH PFSH Medical History Galactosemia Biotinidase deficiency Abnormal biopsy result Family History Grandfather Cancer unknown type Grandmother Hypertension Ovarian cancer Paternal Grandfather Hypertension Grandmother Asthma Father Hypertension Social History adopted: No household members: spouse and children number of children: 2 current occupation: [employer] current occupational exposures/hazards: No pets and [...] 1-2 times per week duration: 15-30 minutes/day gabriela/faith: Lutheran seatbelt use: always do you feel safe at home: Yes 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 Relevant counseling for the gestational age provided. [...] Movement Monitoring, Signs and Symptoms of Preeclampsia, Feeding Yes , Education, Family Medical Leave [...] risk , unspecified, second trimester HIV Today O09. - Supervision of high risk , unspecified, second trimester Syphilis Antibodies Today O09. - Supervision of high risk , unspecified, second trimester Plan problem list reviewed and updated for most current plan of care and appropriate orders placed. Relevant counseling for the gestational age appropriate provided and ACOG education checklist updated. Continue routine care and follow up. 05/19/25 1312 s RELIGIOUS ACTIVITIES DIRECTOR RELIGIOUS ACTIVITIES DIRECTOR-C> Date _ Aspen Morrison RELIGIOUS ACTIVITIES DIRECTOR RELIGIOUS ACTIVITIES DIRECTOR-C Cosigner Signature: Date (if applicable) CC: ~ [facility]08-21-2025 Radiology Diagnostic study note [facility] Imaging Services [address] [place], [place] [id number] OB Anatomy w/ Transvaginal MR#: [id number] Acct: [id number] Name: HEATHER ANGEL Rep #: [id number] : 1995 F 30 From: Delfin Bliss MD PCP: Dr. Ada Garcia MD Status: REG CLI Study:OB Anatomy w/ Transvaginal Date of Exam : 04/14/25 Exam# [id number] Ordering Dr: Jeanine Knight CNM PROCEDURE: OB [...] of 19 weeks and 6days. Reading Location: [id number] CC: MAX Knight; Dr. Ada Garcia MD ~ Photographic Process Attendant: Signed [facility]07-30-2025 Progress [facility] [address], [address] [place] [address] OFFICE VISIT Date of Service: 03/23/25 MR#: [id number] Acct: [id number] Name: HEATHER ANGEL Rep #: [id number] : 1995 Provider: Dr. Tiffany Luna DO Age/Sex: 29/F [place] [facility] Status: Signed Intake Vital Signs 01/27/25 10:32 02/24/25 15:20 03/23/25 10:36 03/23/25 10:38 Height 5 ft 3 in 5 ft 3 in 5 ft 3 in 5 ft 3 in Weight: 142 lb 6 oz 144 lb 147 lb 8 oz BMI 25.2 25.4 26.1 BP 115/75 119/75 123/70 H Intake Visit Reasons: 17wk ob Water Trainer Required: No Is patient in pain?: No Allergies No Known Allergies Allergy (Verified 03/23/25 10:36) Medications ?Medication ?Instructions ?Recorded ?Confirmed ?Type PNV no.151-iron 27 mg-folic 800 cap PO 09/10/22 History mcg-omega3 260 jk-qww-lua-fish capsule omega-3 fatty acids 600 mg PO DAILY 04/10/23 History Last Menstrual Period: 11/24/24 Zika: Zika virus screening: Negative : No PFSH PFSH Medical History Galactosemia Biotinidase deficiency Abnormal biopsy result Family History Grandfather Cancer unknown type Grandmother Hypertension Ovarian cancer Paternal Grandfather Hypertension Grandmother Asthma Father Hypertension Social History adopted: No household members: spouse and children number of children: 2 current occupation: [employer] current occupational exposures/hazards: No pets and [...] 1-2 times per week duration: 15-30 minutes/day gabriela/faith: Lutheran seatbelt use: always do you feel safe at home: Yes 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 Relevant counseling for the gestational age provided. [...] Movement Monitoring, Signs and Symptoms of Preeclampsia, [place] Education and Intimate Partner Violence; Discussed Depression [...] Urinalysis 2 Dip (Clinic) Today 03/23/25 1059 e Velde DO> Date _ Serenity Luna [facility] Signature: Date (if applicable) CC: ~ [facility]07-03-2025 Evaluation note* Diagnosis Onset Date Resolution Status Admit Date Biotinidase deficiency acute 2024 3:17pm Galactosemia acute [...] deficiency acute 2024 10:27am Galactosemia acute March 23 025 10:27am History of miscarriage, currently acute [...] April 20 9:59am Biotinidase deficiency acute Se pt2024 12:50pm Galactosemia acute May 192024 12:50pm History of miscarriage, currently acute April 12:50pm History of thrombocytopenia acute May 19, 2025 12:50pm Lead exposure acute April 262024 12:50pm acute April 12:50pm Rh negative status during acute May 19, 2025 12:50pm Supervision of high-risk acute May 19, 2025 12:50pm Biotinidase deficiency acute Oc 2024 2:50pm Galactosemia acute May 2:50pm History of miscarriage, currently acute June 09, 2025 2:50pm History of thrombocytopenia acute June 09, 2025 2:50pm Lead exposure acute May 2:50pm acute June 09, 2025 2:50pm Rh negative status during acute June 09 2:50pm Supervision of high-risk acute June 09 2:50pm [facility] Work Phone: 1(323) 326-132907-03-2025 Progress [facility] [address] [place] [address], [address] [place] [address] OFFICE VISIT Date of Service: 02/24/25 MR#: [id number] Acct: [id number] Name: HEATHER ANGLE Rep #: [id number] : 1995 Provider: Dr. Elpidio Wynne MD Age/Sex: 29/F [place] [facility] [place]: Signed Intake Vital Signs 09/03/24 06:10 01/27/25 10:32 02/24/25 15:20 Height 5 ft 3 in 5 ft 3 in 5 ft 3 in Weight: 144 lb BMI 25.4 BP 119/75 Intake Visit Reasons: 13wk OB Water Trainer Required: No Is patient in pain?: No Allergies No Known Allergies Allergy (Verified 02/24/25 15:23) Medications ?Medication ?Instructions ?Recorded ?Confirmed ?Type PNV no.151-iron 27 mg-folic 800 cap PO 09/10/22 History mcg-omega3 260 ww-qnt-als-fish capsule omega-3 fatty acids 600 mg PO DAILY 04/10/2311/16 History Last Menstrual Period: 11/24/24 Zika: Zika virus screening: Negative : No PFSH PFSH Medical History Galactosemia Biotinidase deficiency Abnormal biopsy result Family History Grandfather Cancer unknown type Grandmother Hypertension Ovarian cancer Paternal Grandfather Hypertension Grandmother Asthma Father Hypertension Social History adopted: No household members: spouse and children number of children: 2 current occupation: [employer] current occupational exposures/hazards: No pets and [...] 1-2 times per week duration: 15-30 minutes/day gabriela/faith: Lutheran seatbelt use: always do you feel safe at home: Yes 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 Relevant counseling for the gestational age provided. [...] Urinalysis 2 Dip (Clinic) Today 02/24/25 1534 misael SAXENA> Date _ Ana Wynne MD Cosigner Signature: Date (if applicable) CC: ~ [facility]07-03-2025 Progress note Author Ana Wynne [facility] Note Date/Time February 24, 2025 3:34p [facility]'s [address], [address] [place] [address] OFFICE VISIT Date of Service: 02/24/25 MR#: [id number] Acct: [id number] Name: HEATHER ANGEL Rep #: [id number] : 1995 Provider: Dr. Elpidio Wynne MD Age/Sex: 29/F [place] [facility] [place]: Signed Intake Vital Signs 09/03/24 06:10 01/27/25 10:32 02/24/25 15:20 Height 5 ft 3 in 5 ft 3 in 5 ft 3 in Weight: 144 lb BMI 25.4 BP 119/75 Intake Visit Reasons: 13wk OB Water Trainer Required: No Is patient in pain?: No Allergies No Known Allergies Allergy (Verified 02/24/25 15:23) Medications ?Medication ?Instructions ?Recorded ?Confirmed ?Type PNV no.151-iron 27 mg-folic 800 cap PO 09/10/22 History mcg-omega3 260 dy-wkv-hwl-fish capsule omega-3 fatty acids 600 mg PO DAILY 04/10/2311/16 History Last Menstrual Period: 11/24/24 Zika: Zika virus screening: Negative : No PFSH PFSH Medical History Galactosemia Biotinidase deficiency Abnormal biopsy result Family History Grandfather Cancer unknown type Grandmother Hypertension Ovarian cancer Paternal Grandfather Hypertension Grandmother Asthma Father Hypertension Social History adopted: No household members: spouse and children number of children: 2 current occupation: [employer] current occupational exposures/hazards: No pets and [...] 1-2 times per week duration: 15-30 minutes/day gabriela/faith: Lutheran seatbelt use: always do you feel safe at home: Yes 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 Elective abortions 0 Hx [...] term 9lbs 11oz Male 23 ep idural [facility] SM Bam 04/28/23 Iveth Alba 38 live - full term [id number] Female epidural [facility] Rayna Knight Bam Delivery Date: 10/02/21 Last [...] -?-?-?-?-?-?-?-?-?-?--?-?- Negative 150 -?-?-?-?-?-?-?-?-?-?-?-?- SM- no vb edi reyna ACOG First Trimester First Trimester: Desire for [...] Movement Monitoring, Signs and Symptoms of Preeclampsia, [place] Education and Intimate Partner Violence; Discussed Depression [...] POC Urinalysis 2 Dip (Clinic) Today 02/24/25 8924 <Electronically signed by Ana douglas MD> Date _ Ana Valencia Signature: Date (if applicable) CC: ~ [facility] Work Phone: 1(698) 113-802306-05-2025 Evaluation note* Diagnosis Onset Date Resolution Status [...] high-risk a cute January 27, 2025 10:17am [facility] Work Phone: 1([phone]) 333-724306-05-2025 Evaluation note* Diagnosis Onset Date Resolution Status [...] a cute February 24, 2025 3:17pm [facility] Work Phone: 1([phone]) 963-778806-05-2025 Evaluation note* Diagnosis Onset Date Resolution Status [...] ly 2024 10:27am Galactosemia acute March 23, 025 10:27am History of miscarriage, curr ently acute March 23, 2025 10:27am History of thrombocytopenia acute March 23, 2025 10:27am Lead exposure acute March 23, 2025 10:27am acute March 23 10:27am Rh negative status during acute March 23, 2025 10:27am Supervision of high-risk a cute March 23, 2025 10:27am [facility] Work Phone: 1([phone]) 294-345806-05-2025 Evaluation note* Diagnosis Onset Date Resolution Status [...] Supervision of high-risk acute April 20 9:59am [facility] Work Phone: 1([phone]) [phone] Evaluation note* Diagnosis Onset Date Resolution Status [...] acute March 23, 10:27am History of miscarriage, currently acute March [...] April 20 9:59am Biotinidase deficiency acute Se pt2024 12:50pm Galactosemia acute May 192024 12:50pm History of miscarriage, currently acute April 12:50pm History of thrombocytopenia acute May 19, 2025 12:50pm Lead exposure acute April 262024 12:50pm acute April 12:50pm Rh negative status during acute May 19, 2025 12:50pm Supervision of high-risk acute May 19, 2025 12:50pm [facility] Work Phone: 1([phone]) 290-453906-05-2025 Progress [facility] [address], [address] [place] [address] OFFICE VISIT Date of Service: 01/27/25 MR#: [id number] Acct: [id number] Name: HEATHER ANGEL Rep #: [id number] : 1995 Provider: MAX Knight Age/Sex: 29/F [place] [facility] Status: Signed Intake Vital Signs 09/03/24 06:10 01/27/25 10:32 Height 5 ft 3 in 5 ft 3 in Weight: 142 lb 6 oz BMI 25.2 BP 115/75 Intake Visit Reasons: NOB LMP 4/ Chief Complaint: New OB Water Trainer Required: No Is patient in pain?: No Allergies No Known Allergies Allergy (Verified 01/27/25 10:30) Medications ?Medication ?Instructions ?Recorded ?Confirmed ?Type PNV no.151-iron 27 mg-folic 800 cap PO 09/10/22 History mcg-omega3 260 hu-jxw-qpz-fish capsule omega-3 fatty acids 600 mg PO DAILY 04/10/2301/16 History Last Menstrual Period: 11/24/24 [facility] PFS Medical History Galactosemia Biotinidase deficiency Abnormal biopsy result Family History Grandfather Cancer unknown type Grandmother Hypertension Ovarian cancer Paternal Grandfather Hypertension Grandmother Asthma Father Hypertension Social History adopted: No household members: spouse and children number of children: 2 current occupation: [employer] current occupational exposures/hazards: No pets and [...] 1-2 times per week duration: 15-30 minutes/day gabriela/faith: Lutheran seatbelt use: always do you feel safe at home: Yes 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 Elective abortions 0 Hx [...] term 9lbs 11oz Male 23 ep idural [facility] SM Bam 04/28/23 Iveth Alba 38 live - full term [id number] Female epidural [facility] Rayna Knight Bam Delivery Date: 10/02/21 Last Updated by: Chacha Farmer SROM 40w Renae Delivery Date: 04/28/23 Last Updated by: [...] transfusions, Pulmonary (e.g.,TB,Asthma), Seasonal allergies, Drug/latex allergies/reactions, Piece Goods Clerk surgery, Operations/hospitalizations, Anesthetic complications, History of abnormal [...] Status: Acute Comment: ; RONEY 08/31/24; PC: [place]; : Bam (5) : Status: Acute Qualifiers: [...] patient chose: [ ] 01/27/25 1101 s CNM> Date _ Jeanine Regaladoigndesirae Signature: Date (if applicable) CC: ~ [facility] [id number] NoteHNO ID: [id number] Author: LEIA MCDONOUGH APRN.[facility] Service: ? Author Type: Nurse Practitioner [...] history is provided by the patient. No bilingual speech language pathologist was used. Rash Review of Systems Constitutional: [...] Patient agreeable to care plan. Leia Mcdonough APRN.[facility]01-21-2025 History of Present illness Narrative* Leia Mcdonough APRN.[facility] - 09/14/2024 7:39 PM EST Images [...] history is provided by the patient. No bilingual speech language pathologist was used. Rash Review of Systems Constitutional: [...] Patient agreeable to care plan. Leia Mcdonough APRN.[employer]WORKS COMPUTER CONSULTANT documented [facility] Progress note Author Ana Wynne [facility] April 29, 2023 6:10am Note Date/Time April 29, 2023 6:10am [facility] Medical Records Department [address] [place] [address] Progress Note - OBGYN 04/29/23 0609 MR#: [id number] Acct: [id number] Name: HEATHER ANGEL Rep #:[id number] : 1995 28 From: Ana valera MD PCP: Dr. Ada Garcia MD Status:ADM IN Location: [id number] Subjective Subjective Patient doing well without complaints. [...] Cosigner Signature (if applicable): CC: ~ Signed [facility] Work Phone: 1(338) 590-813009-04-2023 Discharge summary Author Jeanine Knight [facility] April 28, 2023 5:34am Note Date/Time April 28, 2023 5:34am [facility] Medical Records Department [address] [place] [address] Instructions for Home/Discharge Instructions 04/28/23533 MR#: [id number] Acct: [id number] Name: HEATHER ANGEL Rep #:[id number] : [...] Ada Garcia Discharge Orders/Prescriptions Prescriptions: No Action [id number]-GY-a9-nlq-rsi-ksxp 27 mg iron-800 mcg-260 mg capsule PO [...] CC: Dr. Ada Garcia MD ~ Signed [facility] Work Phone: [phone]) [phone] Procedure [facility] 04-28-2023 History and physical note Author Jeanine Knight [facility] April 28, 2023 3:12am Note Date/Time April 28, 2023 3:13am [facility] Medical Records Department [address] [place] [address] [place] [address] H&P Exam - HAND TRIMMER 04/28/23 0309 MR#: [id number] Acct: [id number] Name: HEATHER ANGEL Rep #:[id number] : 1995 28 From: Jeanine Knight CNM PCP: Dr. Ada Garcia MD Status:ADM IN Location: [id number] HPI - General General Date of Admission: [...] >20 weeks Gestational age: 38.3 weeks PFSH PFSH Medical History (Updated 04/28/23 @ 03:12 by Jeanine Knight CNM) Biotinidase deficiency Galactosemia Thrombocytopenia affecting Urinary tract infection with hematuria Home Medications PNV no.151-iron 27 mg-folic 800 mcg-omega3 260 te-nqg-veu-fish capsule cap PO 09/10/22 [History Last Taken [...] 1 current occupational status: unemployed current occupation: [employer] pets and animals: Yes pets and animals: dog(s) history of recent travel: No sexually active: Yes Smoking Status: Never smoker alcohol intake: never substance use type: does not use well-balanced diet: daily or most days caffeine: No eating out: rarely or never during the past year weight has: decreased > 10 lbs what type of physical activity do you participate in: none gabriela/faith: Lutheran seatbelt use: always do you feel safe at home: Yes additional 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 Charges/Coding Multi Select Codes Urinary/Genital Urinary/Genital CPT Codes: No Charge 04/28/23311 <Electronically signed by Jeanine Knight CNM> Cosigner Signature (if applicable): CC: MAX Knight; Dr. Ada Garcia MD~ Signed [facility] Work Phone: [phone]) [phone] History of Present illness Narrative* Rosanna Ramirez [...] patient Rosanna Ramirez APRN.CNP documented [facility] encounter[facility] Hospital[facility] + Plan note No data available for this section [facility] Evaluation note* Diagnosis Onset Date Resolution [...] risk , antepartum resolved Vaginal delivery resolved [facility] Work Phone: Evaluation note* Diagnosis UTI symptoms- Primary Other symptoms involving urinary system [facility] Diagnosis Onset Date Resolution Status acute Urinary tract infection with hematuria acute Urinary tract infection with hematuria acute [facility] Work Phone: Evaluation note* Diagnosis Onset Date Resolution Status acute Urinary tract infection with hematuria acute Urinary tract infection with hematuria acute History of miscarriage, currently acute acute Rh negative state in antepartum period acute Supervision of high risk , antepartum acute Urinary tract infection with hematuria [facility] Work Phone: Evaluation note* Diagnosis Onset Date [...] acute Urinary tract infection with hematuria acute [facility] Work Phone: Evaluation note* Diagnosis Onset Date [...] acute Urinary tract infection with hematuria acute [facility] Work Phone: evaluation note* Diagnosis Onset Date [...] acute Urinary tract infection with hematuria acute [facility] Work Phone: evaluation note* Diagnosis Onset Date [...] Supervision of high risk , antepartum acute [facility] Work Phone: Evaluation note* Diagnosis Onset Date [...] Supervision of high risk , antepartum acute [facility] Work Phone: evaluation note* Diagnosis Onset Date [...] acute Urinary tract infection with hematuria acute [facility] Work Phone: Evaluation note* Diagnosis Onset Date [...] resolved Urinary tract infection with hematuria resolved [facility] Work Phone: Evaluation note* Diagnosis Sore throat- Primary Acute pharyngitis Rash Rash and other nonspecific skin eruption [facility] Diagnosis Onset Date Resolution Status Admit [...] high-risk a cute January 27, 2025 10:17am [facility] Work Phone: Hospital Discharge instructions No data available for this section [facility] Progress note Author Jeanine Knight [facility] April 10, 2023 7:40pm Note Date/Time April 10, 2023 7: 41pm [facility] Medical Records Department [address] [place] [address] OB Triage Progress Note 04/10/23 193 MR#: [id number] Acct: [id number] Name: HEATHER ANGEL Rep #:[id number] : 1995 28 From: Jeanine Knight CNM PCP: Dr. Ada Garcia MD Status:REG CLI Y DOS: Location: [place] [address] Progress Notes Date of Service: 04/10/23 Progress Note: Patient presents for triage evaluation secondary to contractions FHT: 150 Moderate variability reactive no decelerations category I tracing [place]: mild Contractions-resolved with oral hydration Assessment and plan: Reactive NST, reassuring maternal and status patientdischarged to home to follow-up at next appointment. Urine neg for UTI. See problem list details for additional plan information. Laboratory Studies: Laboratory Tests 04/10/23 Range/Units 18:50 Urine Color Yellow (Yellow) Urine Clarity Clear (Clear) Urine pH 7.0 (5.0 - 8.0) Ur Specific [place] 1.010 (1.002-1.030) Urine Protein Negative (Negative) mg/dl [...] Multi Select Codes Urinary/Genital Urinary/Genital CPT Codes: 54283-46 non-stress test Inter Assessment & Plan (1) contractions: COMMENT: 04/10- , urine neg, resolved with oral hydration D/C home PLAN: Urine culture-neg SVE oral hydration d/c home (2) Gestational thrombocytopenia: QUALIFIERS: Trimester: third trimester Qualified Code(s): O99.113- Other diseases of the blood and blood-forming organs and certain disorders involving the immune mechanism complicating , third trimester; D69.6 - Thrombocytopenia, unspecified COMMENT: 02/18:139. 03/18:135. Rpt 36wk (3) Placental abnormality: QUALIFIERS: Trimester: [...] Supervision of high risk , antepartum: COMMENT: [id number], RONEY 05/09/23, LYNDA Macdonald, Bam (7) : QUALIFIERS: Weeks of gestation: 30 weeks Qualified Code(s): Z3A.30 - 30 weeks gestation of COMMENT: discussed genetic & carrier testing 04/10/231939 <Electronically signed by Jeanine palmer CNM> Date _ Jeanine Knight CNM Cosigner Signature (if applicable): Date CC: MAX Knight; Dr. Ada Garcia MD ~ Signed [facility] Work Phone: Progress note Author Jeanine Knight [facility] Note Date/Time January 27, 2025 11:01 am [facility] [address] [place] [address], [address] [place] [address] OFFICE VISIT Date of Service: 01/27/25 MR#: [id number] Acct: [id number] Name: HEATHER ANGEL Rep #: [id number] : 1995 Provider: MAX Knight Age/Sex: 29/F [place] [facility] Status: Signed Intake Vital Signs 09/03/24 06:10 01/27/25 10:32 Height 5 ft 3 in 5 ft 3 in Weight: 142 lb 6 oz BMI 25.2 BP 115/75 Intake Visit Reasons: NOB LMP 4/ Chief Complaint: New OB Water Trainer Required: No Is patient in pain?: No Allergies No Known Allergies Allergy (Verified 01/27/25 10:30) Medications ?Medication ?Instructions ?Recorded ?Confirmed ?Type PNV no.151-iron 27 mg-folic 800 cap PO 09/10/22 History mcg-omega3 260 we-tlo-afb-fish capsule omega-3 fatty acids 600 mg PO DAILY 04/10/2301/16 History Last Menstrual Period: 11/24/24 [facility] Medical History Galactosemia Biotinidase deficiency Abnormal biopsy result Family History Grandfather Cancer unknown type Grandmother Hypertension Ovarian cancer Paternal Grandfather Hypertension Grandmother Asthma Father Hypertension Social History adopted: No household members: spouse and children number of children: 2 current occupation: [employer] current occupational exposures/hazards: No pets and [...] 1-2 times per week duration: 15-30 minutes/day gabriela/faith: Lutheran seatbelt use: always do you feel safe at home: Yes 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 Elective abortions 0 Hx [...] term 9lbs 11oz Male 23 ep idural [facility] SM Bam 04/28/23 Iveth Anjali 38 live - full term [id number] Female epidural [facility] Rayna Knight Bam Delivery Date: 10/02/21 Last [...] transfusions, Pulmonary (e.g.,TB,Asthma), Seasonal allergies, Drug/latex allergies/reactions, Piece Goods Clerk surgery, Operations/hospitalizations, Anesthetic complications, History of abnormal [...] Movement Monitoring, Signs and Symptoms of Preeclampsia, [place] Education and Intimate Partner Violence; Discussed Depression [...] Status: Acute Comment: ; RONEY 08/31/24; PC: [place]; : Bam (5) : Status: Acute Qualifiers: [...] Signature: Date (if applicable) CC: ~ [facility] Work Phone: Progress note Author Serenity Shin [facility] Note Date/Time March 23, 2025 10:5 9am [facility] [address] [place] [address], [address] [place] [address] OFFICE VISIT Date of Service: 03/23/25 MR#: [id number] Acct: [id number] Name: HEATHER ANGEL Rep #: [id number] : 1995 Provider: Dr. Tiffany Luna, Age/Sex: 29/F [place] [facility] Status: Signed Intake Vital Signs 01/27/25 10:32 02/24/25 15:20 03/23/25 10:36 03/23/25 10:38 Height 5 ft 3 in 5 ft 3 in 5 ft 3 in 5 ft 3 in Weight: 142 lb 6 oz 144 lb 147 lb 8 oz BMI 25.2 25.4 26.1 BP 115/75 119/75 123/70 H Intake Visit Reasons: 17wk ob Water Trainer Required: No Is patient in pain?: No Allergies No Known Allergies Allergy (Verified 03/23/25 10:36) Medications ?Medication ?Instructions ?Recorded ?Confirmed ?Type PNV no.151-iron 27 mg-folic 800 cap PO 09/10/22 History mcg-omega3 260 oo-ngq-tto-fish capsule omega-3 fatty acids 600 mg PO DAILY 04/10/23 History Last Menstrual Period: 11/24/24 Zika: Zika virus screening: Negative : No PFSH PFSH Medical History Galactosemia Biotinidase deficiency Abnormal biopsy result Family History Grandfather Cancer unknown type Grandmother Hypertension Ovarian cancer Paternal Grandfather Hypertension Grandmother Asthma Father Hypertension Social History adopted: No household members: spouse and children number of children: 2 current occupation: [employer] current occupational exposures/hazards: No pets and [...] 1-2 times per week duration: 15-30 minutes/day gabriela/faith: Lutheran seatbelt use: always do you feel safe at home: Yes 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 Elective abortions 0 Hx [...] term 9lbs 11oz Male 23 ep idural [facility] Bam 04/28/23 Iveth Anjali 38 live - full term [id number] Female epidural [facility] Rayna Kuhn Delivery Date: 10/02/21 Last Updated by: Chacha Farmer SROM 40w Renae Delivery Date: 04/28/23 Last Updated by: [...] Movement Monitoring, Signs and Symptoms of Preeclampsia, [place] Education and Intimate Partner Violence; Discussed Depression [...] by Serenity Madden DO> Date _ Serenity Henryigndesirae Signature: Date (if applicable) CC: ~ [facility] Work Phone: Progress note No data available for this section [facility] Progress note Author Aspen Morrison [facility] Note Date/Time May 19, 2025 1:09pm [facility] [address] [place] [address], [address] [place] [address] OFFICE VISIT Date of Service: 05/19/25 MR#: [id number] Acct: [id number] Name: HEATHER ANGEL Rep #: [id number] : 1995 Provider: CAPO Morrison Age/Sex: 30/F [place] [facility] Status: Signed Intake Vital Signs 03/23/25 10:38 04/20/25 10:09 05/19/25 12:53 Height 5 ft 3 in 5 ft 3 in 5 ft 3 in Weight: 159 lb 5 oz BMI 28.2 BP 114/67 Intake Visit Reasons: 25 wk ob Chief Complaint: 25 Week OB Water Trainer Required: No Is patient in pain?: No Allergies No Known Allergies Allergy (Verified 05/19/25 12:57) Medications ?Medication ?Instructions ?Recorded ?Confirmed ?Type PNV no.151-iron 27 mg-folic 800 cap PO 09/10/22 History mcg-omega3 260 qf-ode-vil-fish capsule omega-3 fatty acids 600 mg PO DAILY 04/10/23 History Last Menstrual Period: 11/24/24 Zika: Zika virus screening: Negative : Yes PFSH PFSH Medical History Galactosemia Biotinidase deficiency Abnormal biopsy result Family History Grandfather Cancer unknown type Grandmother Hypertension Ovarian cancer Paternal Grandfather Hypertension Grandmother Asthma Father Hypertension Social History adopted: No household members: spouse and children number of children: 2 current occupation: [employer] current occupational exposures/hazards: No pets and [...] 1-2 times per week duration: 15-30 minutes/day gabriela/faith: [employer]an seatbelt use: always do you feel safe at home: Yes 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 denies nipt. lead exposure and requesting lead testing-added to [facility] labs 02/24/25 -?-?-?-?-?-?-?-?-?-?-?-?- 13w 0d 144 lb (+2 lb) 119/75 Negative -?-?-?-?-?-?-?-?-?-?-?-?- Negative 150 -?-?-?-?-?-?-?-?-?-?-?-?- SM- no vb crampi 03/23/25 -?-?-?-?-?-?-?-?-?-?-?-?- 16w 6d 147 lb 8 [...] Symptoms of Preeclampsia, Infant Feeding Yes , [place] Education, Family Medical Leave or Disability Forms [...] 05/19/25 1312 <Electronically signed by Aspen palmer RELIGIOUS ACTIVITIES DIRECTOR RELIGIOUS ACTIVITIES DIRECTOR-C> Date _ Aspen Morrison NP RELIGIOUS ACTIVITIES DIRECTOR-C Cosigner Signature: Date (if applicable) CC: ~ [facility] Work Phone: Reason for referral (narrative)No reason for referral information availableSaint [facility] Work Phone: Chief Complaint and Reason [...] LMP 4/2 January 27, 2025 10:17 am Reason for Visit [...] January 14, 2025 9:22a m NOB LMP 2 January 27, 2025 10:17 am 13wk OB [...] 19, 2025 12:50pm [facility] 12[facility] Supervision of high-risk [facility] 2024 12:50pm Chief Complaint Admit Date 13wk OB February 24, 2025 3:17p m 17wk ob March 23, 2025 10:2 7am ANATOMY 18-20 WEEKS April 14, 2025 12 :16pm 21wk ob April 20, 2025 9: 59am 25 wk ob May 19, 2025 12:50pm 28 WK OB GLUCOSE/RHOGAM June 09 2:50pm ORDER SCANNED June 09, 2025 4 :41pm Reason for Visit Admit Date 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, 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 [...] 19, 2025 12:50pm Rh negative status during Sept [email or web address] 12:50pm Supervision of high-risk Septe [email or web address] 12:50pm 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, 2025 2 :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 History of miscarriage, currently pregna nt June 09, 2025 2:50pm History of thrombocytopenia May 2:50pm Lead exposure June 09, 2025 2 :50pm June 09, 2025 2 :50pm Rh negative status during Octo mehreen 2024 2:50pm Supervision of high-risk Octob er 2024 2:50pm Family History No Family History Records Found [...] Will No October 01 11:09pm Power of Lockmaker No October 01, 2021 11:09pm Advance Directive Response Recorded Date/ Time Living Will No October 01 10:09pm Power of Lockmaker No October 01, 2021 10:09pm Advance Directive Response Recorded Date/ Time Living Will No April 28 2:42am Power of Lockmaker No April 28, 2023 2:42am Summary Purpose [...] this informatio n is protected by the [facility] Confidentiality of Alcohol and Drug Abuse Patient Records regulations: The Federal rules restrict any use of the information to criminally investigate or prosecute any alcohol or drug abuse patient.[facility] the event this information is protected by the Federal Confidentiality of Alcohol and Drug Abuse Patient Records regulations: The Federal rules restrict any use of the information to criminally investigate or prosecute any alcohol or drug abuse patient.[facility] Reason for Visit (unrecogniz ed section and content) Reason Comments UTI Reason Comments Rash all over x 1 day Care Teams (unrecognized sec tion and content) Plate Inspector Relationship Specialty Start Date End Date Ada Garcia [address] [place] [address] PCP - General Family Practice 05/14/19 Team [...] Status: Active Member Role Status Dates Ada Garcia MD [...] Care Provider, Referring Provider Active Aspen Morrison RELIGIOUS ACTIVITIES DIRECTOR, RELIGIOUS ACTIVITIES DIRECTOR-C Attending Provider Active Team Status: Inactive Member [...] Provider, Referring Pro vider Active Dr. Ada Gracia MD Primary Care Provider Active Team Status: [...] THAPA MD Referring Provider Active Aspen Morrison RELIGIOUS ACTIVITIES DIRECTOR, RELIGIOUS ACTIVITIES DIRECTOR-C Attending Provider Active Dr. Ada Garcia MD Primary Care Provider Active Team Status: Active Member Role Status Sienna Knight CNM Attending Provider, Referring Pro vider Active Dr. Ada Garcia MD Primary Care Provider Active Team Status: Inactive Member Role Status Dates Dr. Ada Garcia MD Primary Care Provider Active Aspen Morrison RELIGIOUS ACTIVITIES DIRECTOR, RELIGIOUS ACTIVITIES DIRECTOR-C Attending Provider, Referring Provider Active Team Status: [...] CNM Admit Provider, Attending Provide r Active Plate Inspector Relationship Specialty Start Date End Date Ada Garcia [address] [facility] [address] [place] [address] PCP - General Family Medicine 05/14/19 Team [...] January 27, 2025 End: January 27, 2025 Jeainne Knight CNM Attending Provider Active S tart: [...] Active Member Role/Relationship Status Dates Dominick Zaldivar [facility] Provider Active Dr. Ada Garcia MD Primary [...] 2025 End: April 20, 2025 Aspen Morrison RELIGIOUS ACTIVITIES DIRECTOR, RELIGIOUS ACTIVITIES DIRECTOR-C Attending Provider Active Start: April 20, 2025 [...] End: April 20, 2025 Aspen Morrison NP, RELIGIOUS ACTIVITIES DIRECTOR-C Attending physician Active Start: April 20, 2025 End: April 20, 2025 Team Status: Inactive Member Role/Relationship Status Dates Dr. Ada Garcia MD Primary care physician Active Start: May 19, 2025 End: May 19, 2025 Dr. Ada Garcia MD Referring Provider Active Start: May 19, 2025 End: May 19, 2025 Aspen Morrison NP, RELIGIOUS ACTIVITIES DIRECTOR-C Attending physician Active Start: May 19, 2025 End: May 19, 2025 Team Status: Inactive Member Role/Relationship Status [...] 2025 End: April 20, 2025 Aspen Morrison NP RELIGIOUS ACTIVITIES DIRECTOR-C Attending physician Active Start: April 20, 2025 End: April 20, 2025 Team Status: Inactive Member Role/Relationship Status Dates Dr. Ada Garcia MD Primary care physician Active Start: May 19, 2025 End: May 19, 2025 Dr. Ada Garcia MD Referring Provider Active Start: May 19, 2025 End: May 19, 2025 Aspen Morrison RELIGIOUS ACTIVITIES DIRECTOR, RELIGIOUS ACTIVITIES DIRECTOR-C Attending physician Active Start: May 19, 2025 End: May 19, 2025 Team Status: Inactive Member Role/Relationship Status Dates Dr. Ada Garcia MD Primary care physician Active Start: June 09, 2025 End: June 09, 2025 Aspen Morrison RELIGIOUS ACTIVITIES DIRECTOR, RELIGIOUS ACTIVITIES DIRECTOR-C Attending physician Active Start: June 09, 2025 End: June 09, 2025 Aspen Morrison NP RELIGIOUS ACTIVITIES DIRECTOR-C Referring Provider Active Start: June 09, 2025 End: June 09, 2025 Team Status: Inactive Member Role/Relationship Status Dates Dr. Ada Garcia MD Primary care physician Active Start: June 09, 2025 End: June 09, 2025 Dr. Ada Garcia MD Referring Provider Active Start: June 09, 2025 End: June 09, 2025 Jeanine Knight CNM Attending physician Active Start: June 09, 2025 End: June 09, 2025 Team Status: Inactive Member Role/Relationship Status Dates Dr. Ada Garcia MD Primary care physician Active Start: June 09, 2025 End: June 09, 2025 Jeanine Knight CNM Attending physician Active Start: June 09, 2025 End: June 09, 2025 Jeanine Knight CNM Referring Provider Active S tart: June 09, 2025 End: June 09, 2025 INFORMATION SOURCE (unrecogn ized section and content) DATE CREATED AUTHOR 01/07/2023 [facility] DATE CREATED AUTHOR AUTHOR'S ORGANIZ ATION 09/16/2024 [facility] DATE CREATED AUTHOR AUTHOR'S ORGANIZ ATION 04/22/2025 [facility] DATE CREATED AUTHOR AUTHOR'S ORGANIZ ATION 07/01/2025 [facility] FOR RECORDS PERTAINING TO PATIENTS [...] BE BASED ON THE PRIMARY CLINICAL RECORDS. [facility]. provides no warranty or guarantee of the accuracy or completeness of information in this document.
--- OUTSIDE RECORDS SUMMARY | 2025-08-21 21:19 | XMS RPT_ITS | CCD ---
Author Organization [facility] Care Team Providers Care Orchid Transplanter Name Role Phone MD Ada Garcia Primary Care Provider UnavailMD Ada Rodas Referring Provider Unavailable Dr. Serenity Luna Attending Provider [phone] Dr. Ana Wynne Attending Provider [phone] Dr. Ana Wynne Other Provider [phone] Dr. Samia Frias Admit Provider Dr. Ana Wynne Admit Provider [phone] Prince FACILITIES MANAGEMENT EXECUTIVE, DENISE-Janay Louise Attending Provider [phone] Ada [...] Serenity Luna Attending Provider [phone] Prince FACILITIES MANAGEMENT EXECUTIVE, DENISE-Janay Louise Attending Provider [phone] MAX Knight Attending Provider [phone] MD Ada Maddox S Primary Care Provider Unav ailable MD Ada Maddox Referring Provider Unavail able Dr. Ada Garcia S Primary Care Provider MD Ada Maddxo S Primary Care Provider Unav ailable MD Ada Maddox S Referring Provider Unavail able Dr. Serenity Luna Attending Provider [phone] MD Ada Maddox S Primary Care Provider Unav ailable Radha THAPA MD Ada S Referring Provider Unavail able Prince FACILITIES MANAGEMENT EXECUTIVE, FACILITIES MANAGEMENT EXECUTIVE-C Aspen Attending Provider [phone] Dr. Ana [...] Knight CNM Referring Provider [phone] Dr. nAa Wynne MD Attending Provider [phone] Dr. Serenity Luna DO Attending Provider JORGE LUIS REID Primary Care Physician Prince FACILITIES MANAGEMENT EXECUTIVE-CAspen Attending Provider [phone] JORGE LUIS REID Attending JORGE LUIS Youngblood Primary Care Dr. Ada Schneider MD Primary Care Physician Jeanine Knight CNM Attending Physician Ricci SAXENA, Dr. Perez Attending Physician Dr. Serenity Luna DO Attending Physician Keuka Park FACILITIES MANAGEMENT EXECUTIVE-C, Aspen Attending Physician [phone] Dr. Ada Garcia MD Primary Care Physician Radha SAXENA, Dr. Ada Palmer Referring Provider Eugene CNM, Jeanine Attending Physician [phone] Eugene CNM, Jeanine Referring Provider [phone] Prince FACILITIES MANAGEMENT EXECUTIVE-C, Aspen Referring Provider [phone] Jose Scott Referring Unavailable TylerJose Attending Unavailable Jolliff, Ada S Primary Care Unavailable Jeanine Knight Referring Unavailable Jeanine Knight Attending Unavailable Jolliff, Ada S Primary Care Unavailable Jeanine Knight Referring Unavailable Jeanine Knight Attending Unavailable Jolliff, Ada S Primary Care Unavailable Serenity Luna Attending Unavailabl e Jolliff, Ada S Primary Care Unavailable Jolliff, Ada S Referring Unavailable Prince FACILITIES MANAGEMENT EXECUTIVE, Aspen Attending Unavailable Jolliff, Ada S Primary Care Unavailable Jolliff, Ada S Referring Unavailable Keuka Park FACILITIES MANAGEMENT EXECUTIVE, Aspen Attending Unavailable Jolliff, Ada S Primary Care Unavailable Jolliff, Ada S Referring Unavailable Kiha Farias Attending Unavailable Jolliff, Ada S Primary [...] Unavailable Jolliff, Ada S Referring Unavailable Prince FACILITIES MANAGEMENT EXECUTIVE, Aspen Referring Unavailable Prince FACILITIES MANAGEMENT EXECUTIVE, Aspen Attending Unavailable Jolliff, Ada S Primary Care Unavailable Jeanine Knight Referring Unavailable Jolliff, Ada S Primary Care Unavailable Jeanine Knight Attending Unavailable Ana Wynne Referring Unavailable Ana Wynne Attending Unavailable Jolliff, Ada S Primary Care Unavailable Medications Current Medications Medication Drug Class(es) Dates Sig (Normalized) Sig (Original) [id number] 200 actuat albuterol 0.09 mg/actuat metered dose [...] 2022 1:13am must administer with a meal/food Alton-3 Fatty Acids (3 sources) Start: 04-10-2023 take 600 mg by mouth once daily Alton-3 Fatty Acids Active 600 MG PO DAILY April 10, 2023 12:00am Alton-3 Fatty Acids capsule (8 sources) Start: 04-10-2023 take 1 capsule by mouth once daily Start: 04-10-2023 take 1 capsule by mo ut once daily Alton-3 Fatty Acids capsule Active 600 mg PO DAILY April 10, 2023 12:00am Complies with drug therapy Start: 04-10-2023 take 1 capsule by mo [facility] once daily Alton-3 Fatty Acids capsule Active 600 mg PO DAILY April 10, 2023 12:00am [id number]-Gdkz-Vn-D4-Jrm-Ezk-Ct sh (11 sources) Start: 09-10-2022 Ofl150-Ohni-Zr-A6-Oyg-Wab-Wj sh Active CAP PO September 10, 2022 1:00am Start: 09-10-2022 Gwe168-Qjqq-Vz -P1-Ozk-Inz-Fish Active CAP PO September 10, 2022 12:00am Rol964-Drnl-Aj-O2-Xmt-Lfz-Yu sh 27 mg iron-800 mcg-260 mg capsule (8 sources) Start: 09-10-2022 Start: 09-10-2022 Aes132-Ongb-Zu -Q9-Ujx-Nyi-Fish 27 mg iron-800 mcg-260 mg capsule Active NMA PO September 10, 2022 1:00am Complies with drug therapy Start: 09-10-2022 Efq314-Vfsd-Wr -U9-Bkk-Vqw-Fish 27 mg iron-800 mcg-260 mg capsule Active [...] 26, 2020 1:00am September 10, 2022 9:32am Alton-3 Fatty Acids (Fish Oil Concentrate) 1,000 mg capsule (20 sources) Start: 09-26-2020 End: 11-15-2021 take 1 capsule by mouth once daily Alton-3 Fatty Acids (Fish Oil Concentrate) 1,000 mg capsule Discontinued 1000 MG PO DAILY September 26, 2020 9:51am November 15, 2021 10:04am Start: 09-26-2020 End: 11-15-2021 take 1 capsule by mouth once daily Alton-3 Fatty Acids (Fish Oil Concentrate) 1,000 mg capsule Discontinued 1000 mg PO DAILY September 26, 2020 1:00am November 15, 2021 10:04am supplement Start: 09-26-2020 End: 11-15-2021 take 1 capsule by mouth once daily Alton-3 Fatty Acids (Fish Oil Concentrate) 1,000 mg capsule Discontinued 1000 mg PO DAILY September 26, 2020 1:00am November 15, 2021 10:04am Start: 09-26-2020 End: 11-15-2021 take 1 capsule by mouth once daily Alton-3 Fatty Acids (Fish Oil Concentrate) 1,000 mg capsule Discontinued 1000 MG PO DAILY September 26, 2020 1:00am November 15, 2021 10:04am Start: 09-26-2020 End: 11-15-2021 take 1 capsule by mouth once daily Alton-3 Fatty Acids (Fish Oil Concentrate) 1,000 mg [...] RONEY 10/01/21 Boy! Renae Spouse: Bam Angel [id number], RONEY 05/09/23 , PC Renae, Bam PRR [...] Below infectio n level. Presumptive E. coli [place] Count <1000 Mixed Gram Positive Organisms Mixed Gram Positive Organisms MIXC Mixed contaminants. Submit a new specimen if indicated. Normal [facility] Comment on above: Performed By: #### M 100.2200 #### [facility] Laboratory [address] [place], [place], [id number] [facility] Office Visit Reporton 06-23-2025 [facility] Office Visit Report [address], [address] [place] [address] OFFICE VISIT Date of Service: 06/23/25 MR#: [id number] Acct: [id number] Name: HEATHER ANGEL Rep #: [id number] : 1995 Provider: Dr. Ana wolff MD Age/Sex: 30/F Location: [facility] Status: Signed with Addenda ADDENDUM by Aspen Henry on 06/23/25 at 1109 Office Procedure Documentation entered by Aspen Henry 06/23/25 11:09: Immunizations Adacel(Tdap Adolesn/Adult)(PF) 2 Lf-(2.5-5-3-5)-5 Lf/0.5 mL IM syringe Performing Provider: Ana Wynne MD Performing Location: [facility] Administered by: Aspen Henry on 06/23/25 11:08 Dose Route Admin Location Dispensed Lot Number Expiration Date Package NDC NDC [employer] Trader 0.5 mL IM Right Deltoid 0.5 mL [id number] 04/24/27 41539-804-44 [id number] S [employer]PASTEUR VIS Given Date VIS Provided VIS Publication Date 06/23/25 Single Vaccine 24 Eligibility Eligibility Date Funding Source Not Applicable Date cc: * Signed Intake Vital Signs 04/20/25 10:09 06/09/25 14:58 06/23/25 10:01 Height 5 ft 3 in 5 ft 3 in 5 ft 3 in Weight: 166 lb 5 oz BMI 29.5 BP 129/80 H Intake Visit Reasons: 30 WK OB Cylinder Dyer Required: No Is patient in pain?: No Allergies No Known Allergies Allergy (Verified 06/23/25 10:02) Medications ???Medication ???Instructions ???Recorded ???Confirmed ???Type PNV no.151-iron 27 mg-folic 800 cap PO 09/10/22 06/23/25 History mcg-omega3 260 oc-gbg-juz-fish capsule omega-3 fatty acids 600 mg PO [...] children number of children: 2 current occupation: [employer] current occupational exposures/hazards: No pets and animals: [...] 1-2 times per week duration: 15-30 minutes/day gabriela/baptist: Restoration seatbelt use: always do you feel safe at home: Yes 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 Normal [facility] Urine Cultureon 06-13-2025 URC Urine Culture Streptococcus parasanguinis [place] Count 80,000-100,000 Streptococcus parasanguinis: REACTION Ampicillin Islt NEO <=0.25 Penicillin G Islt NEO 0.12 S Cefotaxime Islt NEO <=0.12 S cefTRIAXone Islt NEO <=0.12 S Linezolid Islt NEO <=2 S Vancomycin Islt NEO 0.5 S Normal [facility] Comment on above: Performed By: #### M 100.2200, L7000.1800 #### [facility] Laboratory [facility] [address] [place], [place], [id number] Absolute lymphocyte countOrd ered By: Aspen Morrison on 06-09-2025 Lymphocytes Auto (Unsp spec) [#/Vol] 1.49 10*3/uL 0.83-4.51 [facility] Absolute neutrophil countOrd ered By: Aspen Morrison on 06-09-2025 Neutrophils (Bld) [#/Vol] 5.2 10*3/uL 2.0-7.7 [facility] Automated lymphocyte count a s percentage of total leukocytesOrdered By: Aspen Morrison on 06-09-2025 Lymphocytes/100 WBC Auto (Unsp spec) 20.5 % 19-41 [facility] Basophil percentageOrdered B y: Aspen Prince on 06-09-2025 Basophils/100 WBC (Bld) 0.4 % 0-1 [facility] CBC W/Diff, Automatedon 10 PLT MORPH LARGE Normal [facility] Comment on above: Performed By: #### L 501.0250, BTS, L100.0100, L509.8002, L3890.6006 #### [facility] Laboratory [address] [place], [place], [address] Eosinophil percentageOrdered By: Aspen Morrison on 06-09-2025 Eosinophils/100 WBC (Bld) 0.8 % 0-5 [facility] Erythrocyte distribution wid th ratioOrdered By: Aspen Morrison on 06-09-2025 Erythrocyte distribution width (RBC) [Ratio] 12.0 % 11.6-14.6 [facility] Erythrocyte distribution wid th standard deviationOrdered By: Aspentomi Morrison on 06-09-2025 Erythrocyte distribution width (RBC) [Ratio] 37.9 fl 35.1-43.9 [facility] Glucose Challenge Gest 1H 50 savi 06-09-2025 GLU GEST 50g 1H 77 mg/dL Normal 70-140 [facility] Comment on above: Result Comment: AMENDED REPORT 06/09/251542 GLU GEST 50g 1H previously reported as: 77 mg/dL Performed By: #### L 501.0250, BTS, L100.0100, L509.8002, L3890.6006 #### [facility] [address] [facility] [place], [place], [id number] Glucose measurement at 2 tacos rs post-dose gestational glucose tolerance testOrdered By: Aspen Morrison on 06-09-2025 Glucose [Mass/Vol] 78 mg/dL 70-140 [facility] Comment on above: Previous reported re sult: 77 mg/dLEdited by: AUTOINS on 06/09/25:1543 AMENDED REPORT 06/09/25 1543 GLU GEST 50g 1H previously reported as: 77 mg/dL HIVon 06-09-2025 HIV Non-Reactive Normal Nonreactive [facility] Comment on above: Result Comment: Non- Reactive Reactive Repeatedly reactive samples must be confirmed according to CDC recommended confirmatory algorithms. The subresults for either HIVAG or AHIV can be used as an aid in the selection of the confirmation algorithm for reactive samples. Send out specimens with Reactive results to [facility] for confirmation. Order the HIV antibody detection and differentiation: lc#[id number] Performed By: #### L 501.0250, BTS, L100.0100, L509.8002, L3890.6006 #### [facility] Laboratory [address] [place], [address] Hematocrit Auto (Bld) [Volum e fraction]Ordered By: Aspen Morrison on 06-09-2025 Hematocrit (Bld) [Volume fraction] 36.0 % Low 37-47 [facility] Hemoglobin measurementOrdere d By: Aspen Morrison on 06-09-2025 Hemoglobin (Bld) [Mass/Vol] 12.4 g/dL 12.0-15.0 [facility] Immature granulocytes/100 WB C Auto (Bld)Ordered By: Aspentomi Morrison on 06-09-2025 Immature granulocytes/100 WBC (Bld) 0.700 % 0.0-0.9 [facility] Comment on above: IG% - Immature Granu locytes (promyelocytes, myelocytes and metamyelocytes) > 1% indicates that a LEFT SHIFT is Present. Laboratory - Chemistry and C hemistry - challengeOrdered By: Jeanine Knight on 06-09-2025 Bilirubin Ql (U) Negative [facility] Glucose Ql (U) Negative [facility] Ketones Ql (U) Negative [facility] pH (U) 8 [pH] [facility] Specific gravity (U) [Rel density] 1.015 [facility] Urobilinogen (U) [Mass/Vol] Negative [facility] Laboratory - Hematology and Cell countsOrdered By: Jeanine Knight on 06-09-2025 Hemoglobin Ql (U) Trace [facility] Laboratory - Specimen inform ationOrdered By: Jeanine Knight on 06-09-2025 Clarity (U) Cloudy [facility] Color (U) YELLOW [facility] Laboratory - UrinalysisOrder ed By: Jeanine Knight on 06-09-2025 Nitrite Ql (U) Negative [facility] Protein Ql (U) Negative [facility] MCV (mean corpuscular volume ) determinationOrdered By: Aspen Morrison on 06-09-2025 MCV (RBC) [Entitic vol] 85.9 fL 81-99 [facility] Mean corpuscular hemoglobin (MCH) determinationOrdered By: Aspen Morrison on 06-09-2025 MCH (RBC) [Entitic mass] 29.6 pg 27.0-32.0 [facility] Mean corpuscular hemoglobin concentration (MCHC) determinationOrdered By: Aspen Morrison on 06-09-2025 MCHC (RBC) [Mass/Vol] 34.4 g/dL 32-36 [facility] Mean platelet volume determi nationOrdered By: Aspen Morrison on 06-09-2025 Platelet mean volume (Bld) [Entitic vol] 10.6 fL 6.2-12.0 [facility] Monocyte percentageOrdered B y: sApen Morrison on 06-09-2025 Monocytes/100 WBC (Bld) 5.9 % 0-10 [facility] Neutrophil percentageOrdered By: Aspen Morrison on 06-09-2025 Neutrophils/100 WBC (Bld) 71.7 % High 47-70 [facility] No Panel InformationOrdered By: Jeanine Knight on 06-09-2025 Urine Leukocytes Positive [facility] Urine Non-Hemolyzed Blood Negative [facility] No Panel InformationOrdered By: Aspen Morrison on 06-09-2025 HIV (1&2) Antibody Non-Reactive Nonreactive [facility] Comment on above: Non-ReactiveReactive Repeatedly reactive samples must be confirmed according to CDC recommended confirmatory algorithms. The subresults for either HIVAG or AHIV can be used as an aid in the selection of the confirmation algorithm for reactive samples.Send out specimens with Reactive results to [facility] for confirmation.Order the HIV antibody detection and differentiation: lc#[id number] Nucleated red blood cell per centageOrdered By: Aspen Morrison on 06-09-2025 Nucleated RBC/100 WBC (Bld) [Ratio] 0 % 0-5 [facility] Visit Reporton 06-09-2025 [facility] Office Visit Report [facility] [address], [address] [place] [address] OFFICE VISIT Date of Service: 06/09/25 MR#: [id number] Acct: [id number] Name: HEATHER ANGEL Rep #: [id number] : 1995 Provider: MAX Jerez ams Age/Sex: 30/F Location: [facility] Status: Signed Intake Vital Signs 04/20/25 10:09 05/19/25 12:53 06/09/25 14:58 Height 5 ft 3 in 5 ft 3 in 5 ft 3 in Weight: 165 lb 3 oz BMI 29.2 BP 115/73 Intake Visit Reasons: 28 WK OB GLUCOSE/RHOGAM Chief Complaint: 28wk OB Cylinder Dyer Required: No Is patient in pain?: No Allergies No Known Allergies Allergy (Verified 06/09/25 15:01) Medications ???Medication ???Instructions ???Recorded ???Confirmed ???Type PNV no.151-iron 27 mg-folic 800 cap PO 09/10/22 06/09/25 History mcg-omega3 260 cv-gsy-pnk-fish capsule omega-3 fatty acids 600 mg PO [...] children number of children: 2 current occupation: [employer] current occupational exposures/hazards: No pets and animals: [...] 1-2 times per week duration: 15-30 minutes/day gabriela/baptist: Restoration seatbelt use: always do you feel safe at home: Yes 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 ??-???-?? (more content not included)... Normal [facility] Platelet countOrdered By: Mo anita Morrison on 06-09-2025 Platelets (Bld) [#/Vol] 139 10*3/uL Low 150-450 [facility] Platelet morphologyOrdered B y: Aspen Paztings on 06-09-2025 Platelet morphology finding Nom (Bld) LARGE [facility] RBC Auto (Bld) [#/Vol]Ordere d By: Aspen Paztings on 06-09-2025 RBC (Bld) [#/Vol] 4.19 10*6/uL Low 4.2-5.4 [facility] Syphilis Antibodieson 2024 Syphilis Abs Non-Reactive Normal Nonreactive [facility] Comment on above: Performed By: #### L 501.0250, BTS, L100.0100, L509.8002, L3890.6006 #### [facility] Laboratory [address] [place], [place], [id number] Type AND Screenon 06-09-2025 Ab SCREEN GEL Negative Normal [facility] Comment on above: Order Comment: HVAG Performed By: #### L 501.0250, BTS, L100.0100, L509.8002, L3890.6006 #### [facility] Laboratory [address] [place], [address] Urine cultureOrdered By: Gerard Knight on 06-09-2025 Bacteria identified Cx Nom (U) Streptococcus parasanguinis Abnormal [facility] White blood cell (WBC) count Ordered By: Aspen Morrison on 06-09-2025 WBC (Bld) [#/Vol] 7.3 10*3/uL 4.4-11.0 [facility] Laboratory - Chemistry and C hemistry - challengeOrdered By: Aspen Morrison on 05-19-2025 Glucose Ql (U) Negative [facility] Laboratory - UrinalysisOrder ed By: Aspen Morrison on 05-19-2025 Protein Ql (U) Negative [facility] Visit Reporton 05-19-2025 [facility] Office Visit Report [address] [place] [address] OFFICE VISIT Date of Service: 05/19/25 MR#: [id number] Acct: [id number] Name: HEATHER ANGEL Rep #: [id number] : 1995 Provider: CAPO botello Age/Sex: 30/F Location: [facility] Status: Signed Intake Vital Signs 03/23/25 10:38 04/20/25 10:09 05/19/25 12:53 Height 5 ft 3 in 5 ft 3 in 5 ft 3 in Weight: 159 lb 5 oz BMI 28.2 BP 114/67 Intake Visit Reasons: 25 wk ob Chief Complaint: 25 Week OB Cylinder Dyer Required: No Is patient in pain?: No Allergies No Known Allergies Allergy (Verified 05/19/25 12:57) Medications ???Medication ???Instructions ???Recorded ???Confirmed ???Type PNV no.151-iron 27 mg-folic 800 cap PO 09/10/22 05/19/25 History mcg-omega3 260 fz-axb-irp-fish capsule omega-3 fatty acids 600 mg PO [...] children number of children: 2 current occupation: [employer] current occupational exposures/hazards: No pets and animals: [...] 1-2 times per week duration: 15-30 minutes/day gabriela/baptist: Restoration seatbelt use: always do you feel safe at home: Yes 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 (more content not included)... Normal [facility] Laboratory - Chemistry and C hemistry - challengeOrdered By: Aspen Morrison on 04-20-2025 Glucose Ql (U) Negative [facility] Laboratory - UrinalysisOrder ed By: Aspen Morrison on 04-20-2025 Protein Ql (U) Negative [facility] Visit Reporton 04-20-2025 [facility] Office Visit Report [facility] [address], [address] [place] [address] OFFICE VISIT Date of Service: 04/20/25 MR#: [id number] Acct: [id number] Name: HEATHER ANGEL Rep #: [id number] : 1995 Provider: CAPO botello Age/Sex: 30/F Location: [facility] Status: Signed Intake Vital Signs 01/27/25 10:32 03/23/25 10:38 04/20/25 10:04 04/20/25 10:09 Height 5 ft 3 in 5 ft 3 in 5 ft 3 in 5 ft 3 in Weight: 152 lb 6 oz BMI 26.9 BP 120/77 Intake Visit Reasons: 21wk ob Chief Complaint: 21 Week OB Cylinder Dyer Required: No Is patient in pain?: No Allergies No Known Allergies Allergy (Verified 04/20/25 10:00) Medications ???Medication ???Instructions ???Recorded ???Confirmed ???Type PNV no.151-iron 27 mg-folic 800 cap PO 09/10/22 04/20/25 History mcg-omega3 260 br-cps-dpl-fish capsule omega-3 fatty acids 600 mg PO [...] children number of children: 2 current occupation: [employer] current occupational exposures/hazards: No pets and animals: [...] 1-2 times per week duration: 15-30 minutes/day gabriela/baptist: Restoration seatbelt use: always do you feel safe at home: Yes 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 (more content not included)... Normal [facility] OB Anatomy w/ Transvaginalon 04-14-2025 OB Anatomy w/ Transvaginal [facility] Imaging Services [address] [place] [address] OB Anatomy w/ Transvaginal MR#: [id number] Acct: [id number] Name: HEATHER ANGEL Rep #: [id number] : 1995 F 30 From: Philip stoner MD PCP: Dr. Ada Garcia MD Status: REG CLI Study: OB Anatomy w/ Transvaginal Date of Exam: 04/14 Exam# [id number] Ordering Dr: Jeanine Knight CNM PROCEDURE: OB [...] 19 weeks and 6 days. 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 Normal [facility] Laboratory - Chemistry and C hemistry - challengeOrdered By: Serenity Shin on 03-23-2025 Glucose Ql (U) Negative [facility] Laboratory - UrinalysisOrder ed By: Serenity Shin on 03-23-2025 Protein Ql (U) Negative [facility] Office Visit Reporton 03-23-2025 [facility] Office Visit Report [facility] [address], [address] [place] [address] OFFICE VISIT Date of Service: 03/23/25 MR#: [id number] Acct: [id number] Name: HEATHER ANGEL Rep #: [id number] : 1995 Provider: Dr. Serenity Matos DO Age/Sex: 29/F Location: [facility] Status: Signed Intake Vital Signs 01/27/25 10:32 02/24/25 15:20 03/23/25 10:36 03/23/25 10:38 Height 5 ft 3 in 5 ft 3 in 5 ft 3 in 5 ft 3 in Weight: 142 lb 6 oz 144 lb 147 lb 8 oz BMI 25.2 25.4 26.1 BP 115/75 119/75 123/70 H Intake Visit Reasons: 17wk ob Cylinder Dyer Required: No Is patient in pain?: No Allergies No Known Allergies Allergy (Verified 03/23/25 10:36) Medications ???Medication ???Instructions ???Recorded ???Confirmed ???Type PNV no.151-iron 27 mg-folic 800 cap PO 09/10/22 03/23/25 History mcg-omega3 260 tx-dvr-xvz-fish capsule omega-3 fatty acids 600 mg PO [...] children number of children: 2 current occupation: [employer] current occupational exposures/hazards: No pets and animals: [...] 1-2 times per week duration: 15-30 minutes/day gabriela/baptist: Restoration seatbelt use: always do you feel safe at home: Yes 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 Normal [facility] Laboratory - Chemistry and C hemistry - challengeOrdered By: Ana Wynne on 02-24-2025 Glucose Ql (U) Negative [facility] Laboratory - UrinalysisOrder ed By: Ana Wynne on 02-24-2025 Protein Ql (U) Negative [facility] Visit Reporton 02-24-2025 [facility] Office Visit Report [facility], [address] [place] [address] OFFICE VISIT Date of Service: 02/24/25 MR#: [id number] Acct: [id number] Name: HEATHER ANGEL Rep #: [id number] : 1995 Provider: Dr. Ana wolff MD Age/Sex: 29/F Location: [facility] Status: Signed Intake Vital Signs 09/03/24 06:10 01/27/25 10:32 02/24/25 15:20 Height 5 ft 3 in 5 ft 3 in 5 ft 3 in Weight: 144 lb BMI 25.4 BP 119/75 Intake Visit Reasons: 13wk OB Cylinder Dyer Required: No Is patient in pain?: No Allergies No Known Allergies Allergy (Verified 02/24/25 15:23) Medications ???Medication ???Instructions ???Recorded ???Confirmed ???Type PNV no.151-iron 27 mg-folic 800 cap PO 09/10/22 02/24/25 History mcg-omega3 260 pg-vxl-jxg-fish capsule omega-3 fatty acids 600 mg PO [...] children number of children: 2 current occupation: [employer] current occupational exposures/hazards: No pets and animals: [...] 1-2 times per week duration: 15-30 minutes/day gabriela/baptist: Restoration seatbelt use: always do you feel safe at home: Yes 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 Normal [facility] Chlamydia/GC AUDRA aptimaon CHLAMY,NUC ACID Negative Normal Negative [facility] Comment on above: Performed By: #### M 100.2200, L7000.1800 #### [facility] Laboratory [address] [place], [place], [id number] GC BY NUC ACID Negative Normal Negative [facility] Comment on above: Result Comment: Perf ormed at: =G - [facility] [place] [address] [facility], [place] [id number] Stores Despatch Hand: Whitley Anthony MD, Phone: [phone] Performed By: #### M 100.2200, L7000.1800 #### [facility] [address] [place], [place], [address] Urine Cultureon 01-30-2025 URC Below infection leve l. Mixed Gram Pos Gram Neg Org [place] Count <1000 MIXC Mixed contaminants. Submit a new specimen if indicated. Normal [facility] Comment on above: Performed By: #### M 100.2200, L7000.1800 #### [facility] [address] [facility] [place], [address] Lead, Blood Adult 16+yrson 0 - LEAD,BLD ADULT < 1.0 Normal 0.0-3.4 [facility] Comment on above: Order Comment: Test( s) 947961-Fbaa, Blood (Adult)was developed and its performance characteristicsdetermined by [employer]. It has not been cleared or approvedby the Food and Drug Administration. Result Comment: Test ing performed by Inductively coupled plasma/Mass Spectrometry. Analysis by inductively coupled plasma/mass spectrometry (ICP/MS) Environmental Exposure: WHO Recommendation <5.0 Occupational Exposure: OSHA Lead Std 40.0 AARON 30.0 Detection Limit = 1.0 Performed at: [address] [id number] Stores Despatch Hand: Brian Olivares PhD, Phone: [phone] Performed By: #### M [id number] #### [facility] [address] [facility] [place], [address] Absolute lymphocyte countOrd ered By: Jeanine Knight on 01-27-2025 Lymphocytes Auto (Unsp spec) [#/Vol] 1.49 10*3/uL 0.83-4.51 [facility] Absolute neutrophil countOrd ered By: Jeanine Knight on 01-27-2025 Neutrophils (Bld) [#/Vol] 3.1 10*3/uL 2.0-7.7 [facility] Automated lymphocyte count a s percentage of total leukocytesOrdered By: Jeanine Knight on 01-27-2025 Lymphocytes/100 WBC Auto (Unsp spec) 29.5 % 19-41 [facility] Basophil percentageOrdered B y: Jeanine Knight on 01-27-2025 Basophils/100 WBC (Bld) 0.8 % 0-1 [facility] CBC W/Diff, Automatedon Absolute Lymph 1.49 X10 3/uL Normal 0.83-4.51 [facility] Comment on above: Performed By: #### M 100.2200 #### [facility] [address] [place], [address] Absolute Neut 3.1 X10 3/uL Normal 2.0-7.7 [facility] Comment on above: Performed By: #### M 100.2200 #### [facility] [address] [place], [address] Basophils/100 WBC (Bld) 0.8 % Normal 0-1 [facility] Comment on above: Performed By: #### M 100.2200 #### [facility] [address] [place], [address] Eosinophils/100 WBC (Bld) 2.2 % Normal 0-5 [facility] Comment on above: Performed By: #### M 100.2200 #### [facility] [address] [place], [address] Erythrocyte distribution width (RBC) [Ratio] 11.5 % Low 11.6-14.6 [facility] Comment on above: Performed By: #### M 100.2200 #### [facility] [address] [place], [address] Hematocrit (Bld) [Volume fraction] 37.0 % Normal 37-47 [facility] Comment on above: Performed By: #### M 100.2200 #### [facility] [address] [place], [address] Hemoglobin (Bld) [Mass/Vol] 12.7 g/dL Normal 12.0-15.0 [facility] Comment on above: Performed By: #### M 100.2200 #### [facility] [address] [place], [address] IG% 0.200 Normal 0.0-0.9 [facility] Comment on above: Result Comment: IG% - Immature Granulocytes (promyelocytes, myelocytes and metamyelocytes) > 1% indicates that a LEFT SHIFT is Present. Performed By: #### M 100.2200 #### [facility] [address] [place], [address] Lymphocytes/100 WBC (Bld) 29.5 % Normal 19-41 [facility] Comment on above: Performed By: #### M 100.2200 #### [facility] [address] [place], [address] MCH (RBC) [Entitic mass] 28.9 pg Normal 27.0-32.0 [facility] Comment on above: Performed By: #### M 100.2200 #### [facility] [address] [place], [address] MCHC (RBC) [Mass/Vol] 34.3 g/dL Normal 32-36 [facility] Comment on above: Performed By: #### M 100.2200 #### [facility] [address] [place], [address] MCV (RBC) [Entitic vol] 84.3 fL Normal 81-99 [facility] Comment on above: Performed By: #### M 100.2200 #### [facility] [address] [place], [address] Monocytes/100 WBC (Bld) 5.9 % Normal 0-10 [facility] Comment on above: Performed By: #### M 100.2200 #### [facility] [address] [place], [address] Neutrophils/100 WBC (Bld) 61.4 % Normal 47-70 [facility] Comment on above: Performed By: #### M 100.2200 #### [facility] [address] [place], [address] Nucleated RBC (Bld) [#/Vol] 0 10*3/uL Normal 0-5 [facility] Comment on above: Performed By: #### M 100.2200 #### [facility] [address] [place], [address] Platelet mean volume (Bld) [Entitic vol] 10.5 fL Normal 6.2-12.0 [facility] Comment on above: Performed By: #### M 100.2200 #### [facility] [address] [place], [address] Platelets (Bld) [#/Vol] 163 10*3/uL Normal 150-450 [facility] Comment on above: Performed By: #### M 100.2200 #### [facility] [address] [place], [address] RBC (Bld) [#/Vol] 4.39 10*6/uL Normal 4.2-5.4 [facility] Comment on above: Performed By: #### M 100.2200 #### [facility] [address] [place], [address] RDW SD 35.3 fl Normal 35.1-43.9 [facility] Comment on above: Performed By: #### M 100.2200 #### [facility] [address] [place], [address] WBC (Bld) [#/Vol] 5.1 10*3/uL Normal 4.4-11.0 [facility] Comment on above: Performed By: #### M 100.2200 #### [facility] [address] [place], [address] Chlamydia trachomatis rRNA d etection by probe and target amplification methodOrdered By: Jeanine Knight on 01-27-2025 C. trachomatis rRNA AUDRA+probe Ql (Unsp spec) Negative Negative [facility] Eosinophil percentageOrdered By: Jeanine Knight on 01-27-2025 Eosinophils/100 WBC (Bld) 2.2 % 0-5 [facility] Erythrocyte distribution wid th ratioOrdered By: Jeanine Knight on 01-27-2025 Erythrocyte distribution width (RBC) [Ratio] 11.5 % Low 11.6-14.6 [facility] Erythrocyte distribution wid th standard deviationOrdered By: Jeanine Knight on 01-27-2025 Erythrocyte distribution width (RBC) [Ratio] 35.3 fl 35.1-43.9 [facility] HIVon 01-27-2025 HIV Non-Reactive Normal Nonreactive [facility] Comment on above: Result Comment: Non- Reactive Reactive Repeatedly reactive samples must be confirmed according to CDC recommended confirmatory algorithms. The subresults for either HIVAG or AHIV can be used as an aid in the selection of the confirmation algorithm for reactive samples. Send out specimens with Reactive results to [facility] for confirmation. Order the HIV antibody detection and differentiation: lc#[id number] Performed By: #### M 100.2200 #### [facility] [address] [place], [place], [address] Hematocrit Auto (Bld) [Volum e fraction]Ordered By: Jeanine Knight on 01-27-2025 Hematocrit (Bld) [Volume fraction] 37.0 % 37-47 [facility] Hemoglobin measurementOrdere d By: Jeanine Knight on 01-27-2025 Hemoglobin (Bld) [Mass/Vol] 12.7 g/dL 12.0-15.0 [facility] Hepatitis C Antibodyon 01-27 Hepatitis C Ab Non-Reactive Normal Nonreactive [facility] Comment on above: Result Comment: Reac tive: Presumptive evidence of antibodies to HCV. Follow CDC recommendations for supplemental testing. Non-Reactive: Antibodies to HCV were not detected; does not exclude the possibility of exposure to HCV Reactive Results are presumptive evidence of antibodies to HCV. Follow CDC recommendations for supplemental testing. Order confirmation testing: HCV Quant by PCR testing - HCVPCR lc#[id number] Non Reactive: < 0.8 Equivocal: >/= 0.8 to < 1.0 Reactive: >/= 1.0 The CDC requires that a reactive/equivocal HCV antibody result be sent out for confirmation. HCV Quant by PCR testing. Performed By: #### M 100.2200 #### [facility] [address] [place], [address] Immature granulocytes/100 WB C Auto (Bld)Ordered By: Jeanine Knight on 01-27-2025 Immature granulocytes/100 WBC (Bld) 0.200 % 0.0-0.9 [facility] Comment on above: IG% - Immature Granu locytes (promyelocytes, myelocytes and metamyelocytes) > 1% indicates that a LEFT SHIFT is Present. L3890.6102on 01-27-2025 HEP B Surf Ag Non-Reactive Normal Nonreactive [facility] Comment on above: Result Comment: Reac tive: Presumptive evidence of HBV. Repeatedly reactive samples must be confirmed using a neutralization test ([employer] HBsAg Confirmatory Test) Non-Reactive: HBsAg not detected; does not exclude the possibility of exposure to HBV Performed By: #### M 100.2200 #### [facility] [address] [facility] [place], [place], [id number] L509.4006on 01-27-2025 Rubella IgG REAC Normal Nonreactive [facility] Comment on above: Result Comment: Anti body Result: Interpretation Non-Reactive: Non-Immune Reactive: Immune The following results were obtained with the [employer] Rubella IgG assay. Results from assays of other manufacturers cannot be used interchangeably. Performed By: #### M 100.2200 #### [facility] [address] [facility] [place], [place], [id number] Laboratory - Microbiology an d Antimicrobial susceptibilityOrdered By: Jeanine Knight on 01-27-2025 HBV surface Ag Ql (S) Non-Reactive Nonreactive [facility] Comment on above: Reactive: Presumptiv e evidence of HBV. Repeatedly reactive samples must be confirmed using a neutralization test ([employer] HBsAg Confirmatory Test)Non-Reactive: HBsAg not detected; does not exclude the possibility of exposure to HBV MCV (mean corpuscular volume ) determinationOrdered By: Jeanine Knight on 01-27-2025 MCV (RBC) [Entitic vol] 84.3 fL 81-99 [facility] Mean corpuscular hemoglobin (MCH) determinationOrdered By: Jeanine Knight on 01-27-2025 MCH (RBC) [Entitic mass] 28.9 pg 27.0-32.0 [facility] Mean corpuscular hemoglobin concentration (MCHC) determinationOrdered By: Jeanine Kngiht on 01-27-2025 MCHC (RBC) [Mass/Vol] 34.3 g/dL 32-36 [facility] Mean platelet volume determi nationOrdered By: Jeanine Knight on 01-27-2025 Platelet mean volume (Bld) [Entitic vol] 10.5 fL 6.2-12.0 [facility] Monocyte percentageOrdered B y: Jeanine Knight on 01-27-2025 Monocytes/100 WBC (Bld) 5.9 % 0-10 [facility] Neisseria gonorrhoeae nuclei c acid detection by amplified probe techniqueOrdered By: Jeanine Knight on 01-27-2025 N. gonorrhoeae DNA AUDRA+probe Ql (Unsp spec) Negative Negative [facility] Comment on above: Performed at: =[address] [id number] Director: Whitley Anthony MD, Phone: [phone] Neutrophil percentageOrdered By: Jeanine Knight on 01-27-2025 Neutrophils/100 WBC (Bld) 61.4 % 47-70 [facility] No Panel InformationOrdered By: Jeanine Knight on 01-27-2025 HIV (1&2) Antibody Non-Reactive Nonreactive [facility] Comment on above: Non-ReactiveReactive Repeatedly reactive samples must be confirmed according to CDC recommended confirmatory algorithms. The subresults for either HIVAG or AHIV can be used as an aid in the selection of the confirmation algorithm for reactive samples.Send out specimens with Reactive results to [facility] for confirmation.Order the HIV antibody detection and differentiation: #[id number] Nucleated red blood cell per centageOrdered By: Jeanine Knight on 01-27-2025 Nucleated RBC/100 WBC (Bld) [Ratio] 0 % 0-5 [facility] Visit Reporton 01-27-2025 [facility] Office Visit Report [facility] [address], [address] [place] [address] OFFICE VISIT Date of Service: 01/27/25 MR#: [id number] Acct: [id number] Name: HEATHER ANGEL Rep #: [id number] : 1995 Provider: MAX Jerez ams Age/Sex: 29/F Location: [facility] Status: Signed Intake Vital Signs 09/03/24 06:10 01/27/25 10:32 Height 5 ft 3 in 5 ft 3 in Weight: 142 lb 6 oz BMI 25.2 BP 115/75 Intake Visit Reasons: NOB LMP 4/2 Chief Complaint: New OB Cylinder Dyer Required: No Is patient in pain?: No Allergies No Known Allergies Allergy (Verified 01/27/25 10:30) Medications ???Medication ???Instructions ???Recorded ???Confirmed ???Type PNV no.151-iron 27 mg-folic 800 cap PO 09/10/22 01/27/25 History mcg-omega3 260 de-jrr-uvh-fish capsule omega-3 fatty acids 600 mg PO DAILY 04/10/23 01/27/25 History Last Menstrual Period: 11/24/24 PFSH PFSH Medical History Galactosemia Biotinidase deficiency Abnormal biopsy result Family History Grandfather Cancer unknown type Grandmother Hypertension Ovarian cancer Paternal Grandfather Hypertension Grandmother Asthma Father Hypertension Social History adopted: No household members: spouse and children number of children: 2 current occupation: [employer] current occupational exposures/hazards: No pets and animals: [...] 1-2 times per week duration: 15-30 minutes/day gabriela/baptist: Restoration seatbelt use: always do you feel safe at home: Yes 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 Normal [facility] Platelet countOrdered By: Merlin Knight on 01-27-2025 Platelets (Bld) [#/Vol] 163 10*3/uL 150-450 [facility] RBC Auto (Bld) [#/Vol]Ordere d By: Jeanine Knight on 01-27-2025 RBC (Bld) [#/Vol] 4.39 10*6/uL 4.2-5.4 [facility] Syphilis Antibodieson 2024 Syphilis Abs Non-Reactive Normal Nonreactive [facility] Comment on above: Performed By: #### M 100.2200 #### [facility] [address], [place], [id number] Type AND Screenon 01-27-2025 Ab SCREEN GEL Negative Normal [facility] Comment on above: Order Comment: PN Performed By: #### M 100.2200 #### [facility] [address] [place], [address] Urine cultureOrdered By: Gerard Knight on 01-27-2025 Bacteria identified Cx Nom (U) Mixed Gram Pos & Gram Neg Org Abnormal [facility] White blood cell (WBC) count Ordered By: Jeanine Knight on 01-27-2025 WBC (Bld) [#/Vol] 5.1 10*3/uL 4.4-11.0 [facility] CNOVon 09-14-2024 CNOV Office Visit (UCWSTR ) -- HEATHER ANGEL ([id number]) 1995 F Date Time Provider Department 09/14/24 7:30 PM LEIA MCDONOUGH [facility] During your visit today, we recorded the following information about you: Temperature Pulse Respiration Blood pressure 99.2 degrees 112/minute 16/minute 110/72 Weight 64.3 kg Leia Mcdonough APRN.CHOIR SINGER 09/14/2024 7:54 PM Signed Subjective Male with complaints of itching rash all over her entire body. It is in different sections. Patient says she did use some new gain beads. Patient did eat fish that she does not normally eat. Patient denies any difficulty breathing or swallowing. Patient denies any other symptoms at this time. The history is provided by the patient. No supervisor modern languages was used. Rash Review of Systems Constitutional: [...] Patient agreeable to care plan. Leia Mcdonough APRN.CHOIR SINGER Allergies As of Date: 09/14/2024 (No Known Allergies) Date Reviewed: 09/14/2024 Reviewed by: Tova Ibrahim MA - Fully Assessed Reason for Visit: Rash [1087] Cmt: all over x 1 day Primary Visit Diagnosis:Sore throat [J02.9] Other Visit Diagnosis:Rash [R21] Order(s):STREP A MOLECULAR (POC) [6390754] Order #: [id number]. #:[id number] 1-LAB predniSONE (DELTASONE) 10 mg tabletTake 4 tabs daily for 3 days, then 2 tabs daily for 3 days, then 1 tab daily for 3 days with food.Disp: 21 tabletRfl: 0 famotidine (PEPCID) 20 mg tabletTake 1 tablet by mouth two times a day for 7 days.Disp: 14 tabletRfl: 0 LYME AB EARLY <=30 DAY SYMPTOMS [SQLMERLY] Order #: [id number] FUTURE Prescriptions as of 09/14/2024 - Docosahexanoic [...] Status:Closed by LEIA MCDONOUGH on 09/14/[address] [facility] STREP A MOLECULAR (POC)on Procedural Control Valid [facility] Strep A (POCT) Negative Negative [facility] Urine Cultureon 09-04-2024 [facility] Culture exhibits no growth. Normal [facility] Comment on above: Performed By: #### M 100.8760 #### [facility] [address] [place], [place], [id number] Urgent Care Visit Reporton 0 09-03-2024 Urgent Care Visit Report [facility] [address], [address] [place] [address] OFFICE VISIT Date of Service: 09/03/24 MR#: [id number] Acct: [id number] Name: HEATHER ANGEL Rep #: [id number] : 1995 Provider: HOWARD Zimmer Age/Sex: 29/F [facility] [facility] Status: Signed Intake Vital Signs 06/08/24 08:55 09/03/24 06:10 Height 5 ft 3 in 5 ft 3 in BP 104/58 L Blood Pressure Location Lt brachial Position Sitting Respiration 14 Pulse 78 Pulse Source NIBP Temp 97.8 F Temp Source Oral Pulse Oximetry (%) 100 Oxygen Delivery Method room air Intake Visit Reasons: Urinary tract infection Chief Complaint: dysuria, urgency Cylinder Dyer Required: No Is patient in pain?: No [...] current occupational status: unemployed current occupation: [employer] pets and animals: Yes pets [...] physical activity do you participate in: none gabriela/baptist: Restoration seatbelt use: always do you feel safe at home: Yes 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 Normal [facility] Absolute lymphocyte countOrd ered By: Jeanine Knight on 04-28-2023 Lymphocytes Auto (Unsp spec) [#/Vol] 1.74 10*3/uL 0.83-4.51 [facility] Basophil percentageOrdered B y: Jeanine Knight on 04-28-2023 Basophils/100 WBC (Bld) 0.3 % 0-1 [facility] Eosinophils/100 WBC (Bld) 0.7 % 0-5 [facility] Neutrophils (Bld) [#/Vol] 6.3 10*3/uL 2.0-7.7 [facility] Neutrophils/100 WBC (Bld) 72.6 % 47-70 [facility] WBC (Bld) [#/Vol] 8.7 10*3/uL 4.4-11.0 [facility] Blood erythrocytes count (nu mber/volume)Ordered By: Jeanine Knight on 04-28-2023 RBC (Bld) [#/Vol] 4.01 10*6/uL 4.2-5.4 [facility] Blood hemoglobin measurement (mass/volume)Ordered By: Jeanine Knight on 04-28-2023 Hemoglobin (Bld) [Mass/Vol] 11.8 g/dL 12.0-15.0 [facility] Blood lymphocytes/100 leukoc ytesOrdered By: Jeanine Knight on 04-28-2023 Lymphocytes/100 WBC (Bld) 20.0 % 19-41 [facility] Blood monocytes/100 leukocyt esOrdered By: Jeanine Knight on 04-28-2023 Monocytes/100 WBC (Bld) 5.9 % 0-10 [facility] Blood platelet mean volumeOr dered By: Jeanine Knight on 04-28-2023 Platelet mean volume (Bld) [Entitic vol] 11.5 fL 6.2-12.0 [facility] Determination of erythrocyte mean corpuscular volume (MCV)Ordered By: Jeanine Knight on 04-28-2023 MCV (RBC) [Entitic vol] 88.5 fL 81-99 [facility] Hematocrit Auto (Bld) [Volum e fraction]Ordered By: Jeanine Knight on 04-28-2023 Hematocrit (Bld) [Volume fraction] 35.5 % 37-47 [facility] Laboratory - Hematology and Cell countsOrdered By: Jeanine Knight on 04-28-2023 Erythrocyte distribution width (RBC) [Entitic vol] 39.4 fL 35.1-43.9 [facility] Erythrocyte distribution width (RBC) [Ratio] 12.2 % 11.6-14.6 [facility] Immature granulocytes/100 WBC (Bld) 0.500 % 0.0-0.9 [facility] Comment on above: IG% - Immature Granu locytes (promyelocytes, myelocytes and metamyelocytes) > 1% indicates that a LEFT SHIFT is Present. MCH (RBC) [Entitic mass] 29.4 pg 27.0-32.0 [facility] Nucleated RBC/100 WBC (Bld) [Ratio] 0 % 0-5 [facility] MCHC Auto (RBC) [Mass/Vol]Or dered By: Jeanine Knight on 04-28-2023 MCHC (RBC) [Mass/Vol] 33.2 g/dL 32-36 [facility] Platelets bldOrdered By: Gerard Knight on 04-28-2023 Platelets (Bld) [#/Vol] 123 10*3/uL 150-450 [facility] Laboratory - Chemistry and C hemistry - challengeon 04-22-2023 Glucose Ql (U) Negative [facility] Laboratory - Urinalysison Protein Ql (U) Negative [facility] Absolute lymphocyte countOrd ered By: Ana Wynne on 04-15-2023 Lymphocytes Auto (Unsp spec) [#/Vol] 1.90 10*3/uL 0.83-4.51 [facility] Basophil percentageOrdered B y: Ana Wynne on 04-15-2023 Basophils/100 WBC (Bld) 0.3 % 0-1 [facility] Eosinophils/100 WBC (Bld) 0.6 % 0-5 [facility] Neutrophils (Bld) [#/Vol] 4.2 10*3/uL 2.0-7.7 [facility] Neutrophils/100 WBC (Bld) 62.1 % 47-70 [facility] WBC (Bld) [#/Vol] 6.8 10*3/uL 4.4-11.0 [facility] [place] Blood erythrocytes count (nu mber/volume)Ordered By: Ana Wynne on 04-15-2023 RBC (Bld) [#/Vol] 3.97 10*6/uL 4.2-5.4 [facility] Blood hemoglobin measurement (mass/volume)Ordered By: Ana Wynne on 04-15-2023 Hemoglobin (Bld) [Mass/Vol] 11.8 g/dL 12.0-15.0 [facility] Blood lymphocytes/100 leukoc ytesOrdered By: Ana Wynne on 04-15-2023 Lymphocytes/100 WBC (Bld) 27.9 % 19-41 [facility] Blood monocytes/100 leukocyt esOrdered By: Ana Wynne on 04-15-2023 Monocytes/100 WBC (Bld) 8.4 % 0-10 [facility] Blood platelet mean volumeOr dered By: Ana Wynne on 04-15-2023 Platelet mean volume (Bld) [Entitic vol] 10.9 fL 6.2-12.0 [facility] Determination of erythrocyte mean corpuscular volume (MCV)Ordered By: Ana Wynne on 04-15-2023 MCV (RBC) [Entitic vol] 89.2 fL 81-99 [facility] Hematocrit Auto (Bld) [Volum e fraction]Ordered By: Ana Wynne on 04-15-2023 Hematocrit (Bld) [Volume fraction] 35.4 % 37-47 [facility] Laboratory - Chemistry and C hemistry - challengeon 04-15-2023 Glucose Ql (U) Negative [facility] Laboratory - Hematology and Cell countsOrdered By: Ana Wynne on 04-15-2023 Erythrocyte distribution width (RBC) [Entitic vol] 40.2 fL 35.1-43.9 [facility] Erythrocyte distribution width (RBC) [Ratio] 12.3 % 11.6-14.6 [facility] Immature granulocytes/100 WBC (Bld) 0.700 % 0.0-0.9 [facility] Comment on above: IG% - Immature Granu locytes (promyelocytes, myelocytes and metamyelocytes) > 1% indicates that a LEFT SHIFT is Present. MCH (RBC) [Entitic mass] 29.7 pg 27.0-32.0 [facility] Nucleated RBC/100 WBC (Bld) [Ratio] 0 % 0-5 [facility] Laboratory - Urinalysison Protein Ql (U) Negative [facility] MCHC Auto (RBC) [Mass/Vol]Or dered By: Ana Wynne on 04-15-2023 MCHC (RBC) [Mass/Vol] 33.3 g/dL 32-36 [facility] No Panel InformationOrdered By: Ana Wynne on 04-15-2023 Group B Streptococcus Culture Group B Beta Streptococcus is not isolated. [facility] Platelets bldOrdered By: Honorio Wynne on 04-15-2023 Platelets (Bld) [#/Vol] 132 10*3/uL 150-450 [facility] Basophil percentageOrdered B y: Jeanine Knight on 04-10-2023 Basophil percentage 0 SEEN /hpf 0-5 [facility] Bilirubin Test strip Ql (U)O rdered By: Jeanine Knight on 04-10-2023 Bilirubin Ql (U) Negative Negative [facility] Ketones Test strip Ql (U)Ord ered By: Jeanine Knight on 04-10-2023 Ketones Ql (U) Negative Negative [facility] Mucus LM Ql (Urine sed)Order ed By: Jeanine Knight on 04-10-2023 Mucus Ql (Urine sed) 0 SEEN /hpf [facility] Nitrite Test strip Ql (U)Ord ered By: Jeanine Knight on 04-10-2023 Nitrite Ql (U) Negative Negative [facility] Protein Test strip Ql (U)Ord ered By: Jeanine Knight on 04-10-2023 Protein Ql (U) Negative Negative [facility] Squamous epithelial cells de tection in urine sediment by light microscopyOrdered By: Jeanine Knight on 04-10-2023 Epithelial cells.squamous LM Ql (Urine sed) 0 SEEN /hpf 5-10 [facility] Urine blood detectionOrdered By: Jeanine Knight on 04-10-2023 RBC Ql (U) Negative Negative [facility] RBC Ql (U) 0 SEEN /hpf 0-5 [facility] Urine clarityOrdered By: Gerard Knight on 04-10-2023 Clarity (U) Clear Clear [facility] Urine color determinationOrd ered By: Jeanine Knight on 04-10-2023 Color (U) Yellow Yellow [facility] Urine glucose detectionOrder ed By: Jeanine Knight on 04-10-2023 Glucose Ql (U) Normal mg/dl Normal [facility] Urine leukocyte esterase det ection by dipstickOrdered By: Jeanine Knight on 04-10-2023 Leukocyte esterase Test strip Ql (U) 25 /ul Negative [facility] Urine pHOrdered By: Jeanine mcfarland on 04-10-2023 pH (U) 7.0 [pH] 5.0 - 8.0 [facility] Urine sediment bacteria coun t by microscopy (number/high power field)Ordered By: Jeanine Knight on 04-10-2023 Bacteria LM.HPF (Urine sed) [#/Area] 0 /[HPF] None Seen [facility] Urine specific gravity measu rementOrdered By: Jeanine Knight on 04-10-2023 Specific gravity (U) [Rel density] 1.010 1.002-1.030 [facility] Urobilinogen Auto test strip Ql (U)Ordered By: Jeanine Knight on 04-10-2023 Urobilinogen Ql (U) Normal mg/dl Normal [facility] Laboratory - Chemistry and C hemistry - challengeon 04-01-2023 Glucose Ql (U) Negative [facility] Laboratory - Urinalysison Protein Ql (U) Negative [facility] Absolute lymphocyte countOrd ered By: Aspen Morrison on 03-18-2023 Lymphocytes Auto (Unsp spec) [#/Vol] 1.52 10*3/uL 0.83-4.51 [facility] Basophil percentageOrdered B y: Aspen Morrison on 03-18-2023 Basophils/100 WBC (Bld) 0.4 % 0-1 [facility] Eosinophils/100 WBC (Bld) 1.5 % 0-5 [facility] Neutrophils (Bld) [#/Vol] 4.6 10*3/uL 2.0-7.7 [facility] Neutrophils/100 WBC (Bld) 68.1 % 47-70 [facility] WBC (Bld) [#/Vol] 6.8 10*3/uL 4.4-11.0 [facility] [place] Blood erythrocytes count (nu mber/volume)Ordered By: Aspen Morrison on 03-18-2023 RBC (Bld) [#/Vol] 4.00 10*6/uL 4.2-5.4 [facility] Blood hemoglobin measurement (mass/volume)Ordered By: Aspen Morrison on 03-18-2023 Hemoglobin (Bld) [Mass/Vol] 11.8 g/dL 12.0-15.0 [facility] Blood lymphocytes/100 leukoc ytesOrdered By: Aspen Morrison on 03-18-2023 Lymphocytes/100 WBC (Bld) 22.3 % 19-41 [facility] Blood monocytes/100 leukocyt esOrdered By: Aspen Morrison on 03-18-2023 Monocytes/100 WBC (Bld) 7.3 % 0-10 [facility] Blood platelet mean volumeOr dered By: Aspen Morrison on 03-18-2023 Platelet mean volume (Bld) [Entitic vol] 10.7 fL 6.2-12.0 [facility] Determination of erythrocyte mean corpuscular volume (MCV)Ordered By: Aspen Morrison on 03-18-2023 MCV (RBC) [Entitic vol] 89.3 fL 81-99 [facility] Hematocrit Auto (Bld) [Volum e fraction]Ordered By: Aspen Morrison on 03-18-2023 Hematocrit (Bld) [Volume fraction] 35.7 % 37-47 [facility] Laboratory - Chemistry and C hemistry - challengeon 03-18-2023 Glucose Ql (U) Negative [facility] Laboratory - Hematology and Cell countsOrdered By: Aspen Morrison on 03-18-2023 Erythrocyte distribution width (RBC) [Entitic vol] 39.7 fL 35.1-43.9 [facility] Erythrocyte distribution width (RBC) [Ratio] 12.1 % 11.6-14.6 [facility] Immature granulocytes/100 WBC (Bld) 0.400 % 0.0-0.9 [facility] Comment on above: IG% - Immature Granu locytes (promyelocytes, myelocytes and metamyelocytes) > 1% indicates that a LEFT SHIFT is Present. MCH (RBC) [Entitic mass] 29.5 pg 27.0-32.0 [facility] Nucleated RBC/100 WBC (Bld) [Ratio] 0 % 0-5 [facility] Laboratory - Urinalysison Protein Ql (U) Negative [facility] MCHC Auto (RBC) [Mass/Vol]Or dered By: Aspen Morrison on 03-18-2023 MCHC (RBC) [Mass/Vol] 33.1 g/dL 32-36 [facility] Platelets bldOrdered By: Diana Morrison on 03-18-2023 Platelets (Bld) [#/Vol] 134 10*3/uL 150-450 [facility] Laboratory - Chemistry and C hemistry - challengeon 03-04-2023 Glucose Ql (U) Negative [facility] Laboratory - Urinalysison Protein Ql (U) Negative [facility] Absolute lymphocyte countOrd ered By: Jeanine Knight on 02-18-2023 Lymphocytes Auto (Unsp spec) [#/Vol] 1.45 10*3/uL 0.83-4.51 [facility] Basophil percentageOrdered B y: Jeanine Knight on 02-18-2023 Basophils/100 WBC (Bld) 0.7 % 0-1 [facility] Eosinophils/100 WBC (Bld) 1.3 % 0-5 [facility] Neutrophils (Bld) [#/Vol] 4.0 10*3/uL 2.0-7.7 [facility] Neutrophils/100 WBC (Bld) 66.3 % 47-70 [facility] WBC (Bld) [#/Vol] 6.1 10*3/uL 4.4-11.0 [facility] Blood erythrocytes count (nu mber/volume)Ordered By: Jeanine Knight on 02-18-2023 RBC (Bld) [#/Vol] 3.81 10*6/uL 4.2-5.4 [facility] Blood hemoglobin measurement (mass/volume)Ordered By: Jeanine Knight on 02-18-2023 Hemoglobin (Bld) [Mass/Vol] 11.4 g/dL 12.0-15.0 [facility] Blood lymphocytes/100 leukoc ytesOrdered By: Jeanine Knight on 02-18-2023 Lymphocytes/100 WBC (Bld) 23.8 % 19-41 [facility] Blood monocytes/100 leukocyt esOrdered By: Jeanine Knight on 02-18-2023 Monocytes/100 WBC (Bld) 7.1 % 0-10 [facility] Blood platelet mean volumeOr dered By: Jeanine Knight on 02-18-2023 Platelet mean volume (Bld) [Entitic vol] 10.5 fL 6.2-12.0 [facility] Determination of erythrocyte mean corpuscular volume (MCV)Ordered By: Jeanine Knight on 02-18-2023 MCV (RBC) [Entitic vol] 88.2 fL 81-99 [facility] Gestational diabetes screen 1-hour screen with 50g oral glucose loadOrdered By: Jeanine Knight on 02-18-2023 Glucose 1 Hr post 50 g glucose PO [Mass/Vol] 106 mg/dL 70-140 [facility] HIV 1 and HIV-2 antibody ass ay with HIV-1 p24 antigen detectionOrdered By: Jeanine Knight on 02-18-2023 HIV 1+2 Ab+HIV1 p24 Ag IA Ql Non-Reactive Nonreactive [facility] Hematocrit Auto (Bld) [Volum e fraction]Ordered By: Jeanine Knight on 02-18-2023 Hematocrit (Bld) [Volume fraction] 33.6 % 37-47 [facility] Laboratory - Hematology and Cell countsOrdered By: Jeanine Knight on 02-18-2023 Erythrocyte distribution width (RBC) [Entitic vol] 38.8 fL 35.1-43.9 [facility] Erythrocyte distribution width (RBC) [Ratio] 12.2 % 11.6-14.6 [facility] Immature granulocytes/100 WBC (Bld) 0.800 % 0.0-0.9 [facility] Comment on above: IG% - Immature Granu locytes (promyelocytes, myelocytes and metamyelocytes) > 1% indicates that a LEFT SHIFT is Present. MCH (RBC) [Entitic mass] 29.9 pg 27.0-32.0 [facility] Nucleated RBC/100 WBC (Bld) [Ratio] 0 % 0-5 [facility] MCHC Auto (RBC) [Mass/Vol]Or dered By: Jeanine Knight on 02-18-2023 MCHC (RBC) [Mass/Vol] 33.9 g/dL 32-36 [facility] Platelets bldOrdered By: Gerard Knight on 02-18-2023 Platelets (Bld) [#/Vol] 139 10*3/uL 150-450 [facility] Serum Treponema species anti body detectionOrdered By: Jeanine Knight on 02-18-2023 Treponema sp Ab Ql (S) Non-Reactive [facility] Laboratory - Chemistry and C hemistry - challengeon 01-21-2023 Glucose Ql (U) Negative [facility] Laboratory - Urinalysison Protein Ql (U) Negative [facility] Laboratory - Chemistry and C hemistry - challengeon 12-24-2022 Glucose Ql (U) Negative [facility] Laboratory - Urinalysison Protein Ql (U) Negative [facility] Laboratory - Chemistry and C hemistry - challengeon 11-25-2022 Glucose Ql (U) Negative [facility] Laboratory - Urinalysison Protein Ql (U) Negative [facility] Laboratory - Chemistry and C hemistry - challengeon 10-29-2022 Glucose Ql (U) Negative [facility] Laboratory - Urinalysison Protein Ql (U) Negative [facility] Absolute lymphocyte countOrd ered By: Dr. Wynne on 10-01-2022 Lymphocytes Auto (Unsp spec) [#/Vol] 1.60 10*3/uL 0.83-4.51 [facility] Basophil percentageOrdered B y: Dr. Wynne on 10-01-2022 Basophils/100 WBC (Bld) 0.8 % 0-1 [facility] Eosinophils/100 WBC (Bld) 2.1 % 0-5 [facility] Neutrophils (Bld) [#/Vol] 2.7 10*3/uL 2.0-7.7 [facility] Neutrophils/100 WBC (Bld) 57.0 % 47-70 [facility] WBC (Bld) [#/Vol] 4.8 10*3/uL 4.4-11.0 [facility] Blood erythrocytes count (nu mber/volume)Ordered By: Dr. Wynne on 10-01-2022 RBC (Bld) [#/Vol] 4.23 10*6/uL 4.2-5.4 [facility] Blood hemoglobin measurement (mass/volume)Ordered By: Dr. Wynne on 10-01-2022 Hemoglobin (Bld) [Mass/Vol] 12.2 g/dL 12.0-15.0 [facility] Blood lymphocytes/100 leukoc ytesOrdered By: Dr. Wynne on 10-01-2022 Lymphocytes/100 WBC (Bld) 33.4 % 19-41 [facility] Blood monocytes/100 leukocyt esOrdered By: Dr. Wynne on 10-01-2022 Monocytes/100 WBC (Bld) 6.5 % 0-10 [facility] Blood platelet mean volumeOr dered By: Dr. Wynne on 10-01-2022 Platelet mean volume (Bld) [Entitic vol] 10.2 fL 6.2-12.0 [facility] Determination of erythrocyte mean corpuscular volume (MCV)Ordered By: Dr. Wynne on 10-01-2022 MCV (RBC) [Entitic vol] 84.2 fL 81-99 [facility] HIV 1 and HIV-2 antibody ass ay with HIV-1 p24 antigen detectionOrdered By: Dr. Wynne on 10-01-2022 HIV 1+2 Ab+HIV1 p24 Ag IA Ql Non-Reactive Nonreactive [facility] Hematocrit Auto (Bld) [Volum e fraction]Ordered By: Dr. Wynne on 10-01-2022 Hematocrit (Bld) [Volume fraction] 35.6 % 37-47 [facility] Laboratory - Chemistry and C hemistry - challengeon 10-01-2022 Glucose Ql (U) Negative [facility] Laboratory - Hematology and Cell countsOrdered By: Dr. Wynne on 10-01-2022 Erythrocyte distribution width (RBC) [Entitic vol] 36.5 fL 35.1-43.9 [facility] Erythrocyte distribution width (RBC) [Ratio] 12.0 % 11.6-14.6 [facility] Immature granulocytes/100 WBC (Bld) 0.200 % 0.0-0.9 [facility] Comment on above: IG% - Immature Granu locytes (promyelocytes, myelocytes and metamyelocytes) > 1% indicates that a LEFT SHIFT is Present. MCH (RBC) [Entitic mass] 28.8 pg 27.0-32.0 [facility] Nucleated RBC/100 WBC (Bld) [Ratio] 0 % 0-5 [facility] Laboratory - Urinalysison Protein Ql (U) Negative [facility] MCHC Auto (RBC) [Mass/Vol]Or dered By: Dr. Wynne on 10-01-2022 MCHC (RBC) [Mass/Vol] 34.3 g/dL 32-36 [facility] No Panel InformationOrdered By: Dr. Wynne on 10-01-2022 Hepatitis B Surface Antigen Non-Reactive Nonreactive [facility] Hepatitis C Antibody Non-Reactive Nonreactive [facility] Comment on above: Non Reactive: < 0.8 Equivocal: >/= 0.8 to < 1.0 Reactive: >/= 1.0The CDC recommends that a reactive/equivocal HCV antibody result be followed up by the HCV Nucleic Acid Amplificationtest (097273) Rubella IgG Antibody Reactive Nonreactive [facility] Comment on above: Antibody Results Int erpretation of Immune Status Non Reactive Presumed Non-Immune Equivocal Equivocal Reactive Presumed Immune Platelets bldOrdered By: Dr. Wynne on 10-01-2022 Platelets (Bld) [#/Vol] 153 10*3/uL 150-450 [facility] Serum Treponema species anti body detectionOrdered By: Dr. Wynne on 10-01-2022 Treponema sp Ab Ql (S) Non-Reactive [facility] Culture, urineOrdered By: Dr Thom Wynne on 09-18-2022 Bacteria identified Cx Nom (U) Culture exhibits no growth. [facility] Chlamydia trachomatis rRNA d etection by probe and target amplification methodOrdered By: Dr. Wynne on 09-16-2022 C. trachomatis rRNA AUDRA+probe Ql (Unsp spec) Negative Negative [facility] Laboratory - Microbiology an d Antimicrobial susceptibilityOrdered By: Dr. Wynne on 09-16-2022 N. gonorrhoeae DNA AUDRA+probe Ql (Unsp spec) Negative Negative [facility] Comment on above: Performed at: [address] [id number] Director: Whitley Anthony MD, Phone: [phone] Culture, urineOrdered By: Dr Thom Wynne on 09-15-2022 Bacteria identified Cx Nom (U) Culture exhibits no growth. [facility] Laboratory - Chemistry and C hemistry - challengeon 09-12-2022 Bilirubin Ql (U) Negative [facility] Glucose Ql (U) Negative [facility] Ketones Ql (U) Negative [facility] Urobilinogen (U) [Mass/Vol] Negative [facility] Laboratory - Hematology and Cell countson 09-12-2022 Hemoglobin Ql (U) Negative [facility] Laboratory - Specimen inform ationon 09-12-2022 Clarity (U) Clear [facility] Color (U) YELLOW [facility] Laboratory - Urinalysison Nitrite Ql (U) Negative [facility] Protein Ql (U) Negative [facility] No Panel Informationon 09-12 Urine Leukocytes Positive [facility] Urine pH 6.0. [facility] Culture, urineOrdered By: St kanchan Jefferson on 09-04-2022 Bacteria identified Cx Nom (U) Escherichia coli [facility] Basophil percentageOrdered B y: Elijah Jefferson on 09-02-2022 Basophil percentage 50-100 SEEN /hpf 0-5 [facility] Bilirubin Test strip Ql (U)O rdered By: Elijah Jefferson on 09-02-2022 Bilirubin Ql (U) Negative Negative [facility] Ketones Test strip Ql (U)Ord ered By: Elijah Jefferson on 09-02-2022 Ketones Ql (U) 50 mg/dl Negative [facility] Laboratory - Chemistry and C hemistry - challengeon 09-02-2022 HCG ( test) Ql (U) Positive [facility] Bilirubin Ql (U) Negative [facility] Glucose Ql (U) Negative [facility] Ketones Ql (U) Large (80+) [facility] pH (U) 6.0 [pH] [facility] Specific gravity (U) [Rel density] 1.005 [facility] Urobilinogen (U) [Mass/Vol] Negative [facility] Laboratory - Hematology and Cell countson 09-02-2022 Hemoglobin Ql (U) Hemolyzed [facility] Laboratory - Specimen inform ationon 09-02-2022 Clarity (U) Cloudy [facility] Color (U) YELLOW [facility] Laboratory - Urinalysison Nitrite Ql (U) Negative [facility] Protein Ql (U) Negative [facility] Mucus LM Ql (Urine sed)Order ed By: Elijah Jefferson on 09-02-2022 Mucus Ql (Urine sed) 0 SEEN /hpf [facility] Nitrite Test strip Ql (U)Ord ered By: Elijah Jefferson on 09-02-2022 Nitrite Ql (U) Negative Negative [facility] No Panel Informationon 09-02 Urine Leukocytes Positive [facility] Urine Non-Hemolyzed Blood Small [facility] Protein Test strip Ql (U)Ord ered By: Elijah Jefferson on 09-02-2022 Protein Ql (U) 30 mg/dl Negative [facility] Squamous epithelial cells de tection in urine sediment by light microscopyOrdered By: Elijah Jefferson on 09-02-2022 Epithelial cells.squamous LM Ql (Urine sed) 0 SEEN /hpf 5-10 [facility] Urine blood detectionOrdered By: Elijah Jefferson on 09-02-2022 RBC Ql (U) 10 /ul Negative [facility] RBC Ql (U) 0-5 SEEN /hpf 0-5 [facility] Urine clarityOrdered By: Ari Jefferson on 09-02-2022 Clarity (U) Clear Clear [facility] Urine color determinationOrd ered By: Elijah Jefferson on 09-02-2022 Color (U) Yellow Yellow [facility] Urine glucose detectionOrder ed By: Elijah Jefferson on 09-02-2022 Glucose Ql (U) Normal mg/dl Normal [facility] Urine leukocyte esterase det ection by dipstickOrdered By: Elijah Jefferson on 09-02-2022 Leukocyte esterase Test strip Ql (U) 500 /ul Negative [facility] [facility] Urine pHOrdered By: Elijah cox on 09-02-2022 pH (U) 6.5 [pH] 5.0 - 8.0 [facility] Urine sediment bacteria coun t by microscopy (number/high power field)Ordered By: Elijah Jefferson on 09-02-2022 Bacteria LM.HPF (Urine sed) [#/Area] 2 /[HPF] None Seen [facility] Urine specific gravity measu rementOrdered By: Elijah Jefferson on 09-02-2022 Specific gravity (U) [Rel density] 1.005 1.002-1.030 [facility] Urobilinogen Auto test strip Ql (U)Ordered By: Elijah Jefferson on 09-02-2022 Urobilinogen Ql (U) Normal mg/dl Normal [facility] Absolute lymphocyte counton 11-15-2021 Lymphocytes Auto (Unsp spec) [#/Vol] 1.78 10*3/uL 0.83-4.51 [facility] Work Phone: Basophil percentageon 2021 Basophils/100 WBC (Bld) 0.7 % 0-1 [facility] Work Phone: Eosinophils/100 WBC (Bld) 3.3 % 0-5 [facility] Work Phone: Neutrophils (Bld) [#/Vol] 1.9 10*3/uL 2.0-7.7 [facility] Work Phone: Neutrophils/100 WBC (Bld) 45.7 % 47-70 [facility] Work Phone: WBC (Bld) [#/Vol] 4.2 10*3/uL 4.4-11.0 [facility] Work Phone: Blood erythrocytes count (nu mber/volume)on 11-15-2021 RBC (Bld) [#/Vol] 4.26 10*6/uL 4.2-5.4 [facility] Work Phone: Blood hemoglobin measurement (mass/volume)on 11-15-2021 Hemoglobin (Bld) [Mass/Vol] 12.7 g/dL 12.0-15.0 [facility] Work Phone: Blood lymphocytes/100 leukoc yteson 11-15-2021 Lymphocytes/100 WBC (Bld) 42.3 % 19-41 [facility] Work Phone: Blood monocytes/100 leukocyt eson 11-15-2021 Monocytes/100 WBC (Bld) 7.8 % 0-10 [facility] Work Phone: [phone] Blood platelet mean volumeon 11-15-2021 Platelet mean volume (Bld) [Entitic vol] 9.6 fL 6.2-12.0 [facility] Work Phone: [phone] Determination of erythrocyte mean corpuscular volume (MCV)on 11-15-2021 MCV (RBC) [Entitic vol] 87.8 fL 81-99 [facility] Work Phone: [phone] Hematocrit Auto (Bld) [Volum e fraction]on 11-15-2021 Hematocrit (Bld) [Volume fraction] 37.4 % 37-47 [facility] Work Phone: [phone] Laboratory - Hematology and Cell countson 11-15-2021 Erythrocyte distribution width (RBC) [Entitic vol] 37.2 fL 35.1-43.9 [facility] Work Phone: [phone] Erythrocyte distribution width (RBC) [Ratio] 11.5 % 11.6-14.6 [facility] Work Phone: [phone] Immature granulocytes/100 WBC (Bld) 0.200 % 0.0-0.9 [facility] Work Phone: [phone] Comment on above: IG% - Immature Granu locytes (promyelocytes, myelocytes and metamyelocytes) > 1% indicates that a LEFT SHIFT is Present. MCH (RBC) [Entitic mass] 29.8 pg 27.0-32.0 [facility] Work Phone: Nucleated RBC/100 WBC (Bld) [Ratio] 0 % 0-5 [facility] Work Phone: MCHC Auto (RBC) [Mass/Vol]on 11-15-2021 MCHC (RBC) [Mass/Vol] 34.0 g/dL 32-36 [facility] Work Phone: Platelets bldon 11-15-2021 Platelets (Bld) [#/Vol] 166 10*3/uL 150-450 [facility] Work Phone: Absolute lymphocyte counton 10-03-2021 Lymphocytes Auto (Unsp spec) [#/Vol] 1.16 10*3/uL 0.83-4.51 [facility] Work Phone: Basophil percentageon 2021 Basophils/100 WBC (Bld) 0.1 % 0-1 [facility] Work Phone: Eosinophils/100 WBC (Bld) 0.1 % 0-5 [facility] Work Phone: Neutrophils (Bld) [#/Vol] 13.9 10*3/uL 2.0-7.7 [facility] Work Phone: Neutrophils/100 WBC (Bld) 85.2 % 47-70 [facility] Work Phone: WBC (Bld) [#/Vol] 16.3 10*3/uL 4.4-11.0 [facility] Work Phone: Blood erythrocytes count (nu mber/volume)on 10-03-2021 RBC (Bld) [#/Vol] 3.19 10*6/uL 4.2-5.4 [facility] Work Phone: Blood hemoglobin measurement (mass/volume)on 10-03-2021 Hemoglobin (Bld) [Mass/Vol] 9.7 g/dL 12.0-15.0 [facility] Work Phone: Blood lymphocytes/100 leukoc yteson 10-03-2021 Lymphocytes/100 WBC (Bld) 7.1 % 19-41 [facility] Work Phone: Blood monocytes/100 leukocyt eson 10-03-2021 Monocytes/100 WBC (Bld) 6.9 % 0-10 [facility] Work Phone: Blood platelet mean volumeon 10-03-2021 Platelet mean volume (Bld) [Entitic vol] 11.7 fL 6.2-12.0 [facility] Work Phone: Determination of erythrocyte mean corpuscular volume (MCV)on 10-03-2021 MCV (RBC) [Entitic vol] 86.2 fL 81-99 [facility] Work Phone: Hematocrit Auto (Bld) [Volum e fraction]on 10-03-2021 Hematocrit (Bld) [Volume fraction] 27.5 % 37-47 [facility] Work Phone: [phone] Laboratory - Hematology and Cell countson 10-03-2021 Erythrocyte distribution width (RBC) [Entitic vol] 38.6 fL 35.1-43.9 [facility] Work Phone: Erythrocyte distribution width (RBC) [Ratio] 12.2 % 11.6-14.6 [facility] Work Phone: Immature granulocytes/100 WBC (Bld) 0.600 % 0.0-0.9 [facility] Work Phone: [phone] Comment on above: IG% - Immature Granu locytes (promyelocytes, myelocytes and metamyelocytes) > 1% indicates that a LEFT SHIFT is Present. MCH (RBC) [Entitic mass] 30.4 pg 27.0-32.0 [facility] Work Phone: Nucleated RBC/100 WBC (Bld) [Ratio] 0 % 0-5 [facility] Work Phone: MCHC Auto (RBC) [Mass/Vol]on 10-03-2021 MCHC (RBC) [Mass/Vol] 35.3 g/dL 32-36 [facility] Work Phone: Platelets bldon 10-03-2021 Platelets (Bld) [#/Vol] 124 10*3/uL 150-450 [facility] Work Phone: No Panel Informationon 10-01 SARS-CoV-2 Antigen (Rapid) [facility] Work Phone: Vaginal Amniotic Fluid Detection Positive Negative [facility] Work Phone: Comment on above: Amniotic fluid prese nt indicates rupture of Membranes. RESULTS CALLED TO MACHO MARIN RN WP 10/01/[id number] Ever Khalil.REPORT READ BACK BY SAME . Laboratory - Chemistry and C hemistry - challengeon 09-25-2021 Glucose Ql (U) Negative [facility] Work Phone: Laboratory - Urinalysison Protein Ql (U) Negative [facility] Work Phone: Laboratory - Chemistry and C hemistry - challengeon 09-18-2021 Glucose Ql (U) Negative [facility] Work Phone: Laboratory - Urinalysison Protein Ql (U) Negative [facility] Work Phone: Laboratory - Chemistry and C hemistry - challengeon 09-12-2021 Glucose Ql (U) Negative [facility] Work Phone: Laboratory - Urinalysison Protein Ql (U) Negative [facility] Work Phone: No Panel Informationon 09-04 Group B Streptococcus Culture Group B Beta Streptococcus is not isolated. [facility] Work Phone: Laboratory - Chemistry and C hemistry - challengeon 08-21-2021 Glucose Ql (U) Negative [facility] Work Phone: Laboratory - Urinalysison Protein Ql (U) Negative [facility] Work Phone: Absolute lymphocyte counton 08-07-2021 Lymphocytes Auto (Unsp spec) [#/Vol] 1.34 10*3/uL 0.83-4.51 [facility] Work Phone: Basophil percentageon 2020 Eosinophils/100 WBC (Bld) 1.4 % 0-5 [facility] Work Phone: Neutrophils (Bld) [#/Vol] 5.7 10*3/uL 2.0-7.7 [facility] Work Phone: WBC (Bld) [#/Vol] 8.0 10*3/uL 4.4-11.0 [facility] Work Phone: Blood erythrocytes count (nu mber/volume)on 08-07-2021 RBC (Bld) [#/Vol] 3.99 10*6/uL 4.2-5.4 [facility] Work Phone: Blood hemoglobin measurement (mass/volume)on 08-07-2021 Hemoglobin (Bld) [Mass/Vol] 11.3 g/dL 12.0-15.0 [facility] Work Phone: Blood lymphocytes/100 leukoc yteson 08-07-2021 Lymphocytes/100 WBC (Bld) 16.9 % 19-41 [facility] Work Phone: Blood monocytes/100 leukocyt eson 08-07-2021 Monocytes/100 WBC (Bld) 7.9 % 0-10 [facility] Work Phone: Blood platelet mean volumeon 08-07-2021 Platelet mean volume (Bld) [Entitic vol] 10.6 fL 6.2-12.0 [facility] Work Phone: [phone] Determination of erythrocyte mean corpuscular volume (MCV)on 08-07-2021 MCV (RBC) [Entitic vol] 88.2 fL 81-99 [facility] Work Phone: Hematocrit Auto (Bld) [Volum e fraction]on 08-07-2021 Hematocrit (Bld) [Volume fraction] 35.2 % 37-47 [facility] Work Phone: [phone] Laboratory - Chemistry and C hemistry - challengeon 08-07-2021 Glucose Ql (U) Negative [facility] Work Phone: [phone] Laboratory - Hematology and Cell countson 08-07-2021 Basophils/100 WBC (Unsp spec) 0.4 % 0-1 [facility] Work Phone: [phone] Erythrocyte distribution width (RBC) [Entitic vol] 39.9 fL 35.1-43.9 [facility] Work Phone: [phone] Erythrocyte distribution width (RBC) [Ratio] 12.5 % 11.6-14.6 [facility] Work Phone: Immature granulocytes/100 WBC (Bld) 1.800 % 0.0-0.9 [facility] Work Phone: [phone] Comment on above: IG% - Immature Granu locytes (promyelocytes, myelocytes and metamyelocytes) > 1% indicates that a LEFT SHIFT is Present. MCH (RBC) [Entitic mass] 28.3 pg 27.0-32.0 [facility] Work Phone: [phone] Neutrophils/100 WBC (Bld) 71.6 % 47-70 [facility] Work Phone: Nucleated RBC/100 WBC (Bld) [Ratio] 0 % 0-5 [facility] Work Phone: [phone] Laboratory - Urinalysison Protein Ql (U) Negative [facility] Work Phone: [phone] MCHC Auto (RBC) [Mass/Vol]on 08-07-2021 MCHC (RBC) [Mass/Vol] 32.1 g/dL 32-36 [facility] Work Phone: [phone] Platelets bldon 08-07-2021 Platelets (Bld) [#/Vol] 142 10*3/uL 150-450 [facility] Work Phone: [phone] Laboratory - Chemistry and C hemistry - challengeon 07-25-2021 Glucose Ql (U) Negative [facility] Work Phone: [phone] Laboratory - Urinalysison Protein Ql (U) Negative [facility] Work Phone: Vital Signs Date Time Vital Sign Value Performing Clinician Facility 10-16-2025 14:58-0400 Body height 160.[address] Ada Garcia MD Work Phone: [phone] [place] [address] 06-09-2025 14:58-0400 Body mass index (BMI) [Ratio] 29.2 kg/m2 Dr. Ada Garcia MD Work Phone: [phone])874-380798 [place] [address] 06-09-2025 14:58-0400 Body weight 74.[address] Ada Garcia MD Work Phone: [phone] [place] [address] 06-09-2025 14:58-0400 Diastolic blood pressure 73 mm[Hg] Dr. Ada Garcia MD Work Phone: [phone])409-404698 [place] [address] 06-09-2025 14:58-0400 Systolic blood pressure 115 mm[Hg] Dr. Ada Garcia MD Work Phone: [phone])259-845298 [place] [address] 05-19-2025 12:53-0400 Body height 160.[address] Ada Garcia MD Work Phone: [phone])314-379598 [place] [address] 05-19-2025 12:53-0400 Body mass index (BMI) [Ratio] 28.2 kg/m2 Dr. Ada Garcia MD Work Phone: [phone])829-206098 [place] [address] 05-19-2025 12:53-0400 Body weight 72.[address] Ada Garcia MD Work Phone: [phone])109-409998 [place] [address] 05-19-2025 12:53-0400 Diastolic blood pressure 67 mm[Hg] Dr. Ada Garcia MD Work Phone: [phone])874-628998 [place] [address] 05-19-2025 12:53-0400 Systolic blood pressure 114 mm[Hg] Dr. Ada Garcia MD Work Phone: 1(820)841-577598 [place] [address] 04-20-2025 10:09-0400 Body height 160.[address] Ada Garcia MD Work Phone: [phone])150-925498 [place] [address] 04-20-2025 10:04-0400 Body mass index (BMI) [Ratio] 26.9 kg/m2 Dr. Ada Garcia MD Work Phone: [phone])[phone] [place] [address] 04-20-2025 10:04-0400 Body weight 69.[address] Ada Garcia MD Work Phone: [phone])807-821498 [place] [address] 04-20-2025 10:04-0400 Diastolic blood pressure 77 mm[Hg] Dr. Ada Garcia MD Work Phone: [phone])402-098598 [place] [address] 04-20-2025 10:04-0400 Systolic blood pressure 120 mm[Hg] Dr. Ada Garcia MD Work Phone: 6(354)899-520798 [place] [address] 03-23-2025 10:38-0400 Body height 160.[address] Ada Garcia MD Work Phone: 3(646)260-004498 [place] [address] 03-23-2025 10:36-0400 Body mass index (BMI) [Ratio] 26.1 kg/m2 Dr. Ada Garcia MD Work Phone: 2(363)580-934198 [place] [address] 03-23-2025 10:36-0400 Body weight 66.[address] Ada Garcia MD Work Phone: 8(323)573-134198 [place] [address] 03-23-2025 10:36-0400 Diastolic blood pressure 70 mm[Hg] Dr. Ada Garcia MD Work Phone: 1(561)089-484098 [place] [address] 03-23-2025 10:36-0400 Systolic blood pressure 123 mm[Hg] Dr. Ada Garcia MD Work Phone: [phone])724-764298 [place] [address] 02-24-2025 15:20-0400 Body height 160.[address] Ada Garcia MD Work Phone: 9(357)778-577498 [place] [address] 02-24-2025 15:20-0400 Body mass index (BMI) [Ratio] 25.4 kg/m2 Dr. Ada Garcia MD Work Phone: [phone])125-282998 [place] [address] 02-24-2025 15:20-0400 Body weight 65.[address] Ada Garcia MD Work Phone: 8(057)897-700498 [place] [address] 02-24-2025 15:20-0400 Diastolic blood pressure 75 mm[Hg] Dr. Ada Garcia MD Work Phone: [facility] 02-24-2025 15:20-0400 Systolic blood pressure 119 mm[Hg] Dr. Ada Garcia MD Work Phone: [facility] 01-27-2025 10:32-0400 Body height 160.[address] Ada Garcia MD Work Phone: [facility] 01-27-2025 10:32-0400 Body mass index (BMI) [Ratio] 25.2 kg/m2 Dr. Ada Garcia MD Work Phone: [facility] 01-27-2025 10:32-0400 Body weight 64.[address] Ada Garcia MD Work Phone: [facility] 01-27-2025 10:32-0400 Diastolic blood pressure 75 mm[Hg] Dr. Ada Garcia MD Work Phone: [facility] 01-27-2025 10:32-0400 Systolic blood pressure 115 mm[Hg] Dr. Ada Garcia MD Work Phone: [facility] 09-14-2024 19:35-0500 Body temperature 99.19 [degF] Leia Mcdonough APRN.[employer] Work Phone: [facility] 09-14-2024 19:35-0500 Body weight 64.3 kg Leia Mcdonough APRN.[employer] Work Phone: [facility] 09-14-2024 19:35-0500 Diastolic blood pressure 72 mm[Hg] Leia Mcdonough APRN.[employer] Work Phone: [facility] 09-14-2024 19:35-0500 Heart rate 112 /min Leia Mcdonough APRN.[employer] Work Phone: [facility] 09-14-2024 19:35-0500 Respiratory rate 16 /min Leia Mcdonough APRN.[employer] Work Phone: [facility] 09-14-2024 19:35-0500 SaO2% (BldA) [Mass fraction] 98 % Leia Mcdonough APRN.[employer] Work Phone: [facility] 09-14-2024 19:35-0500 Systolic blood pressure 110 mm[Hg] Leia Mcdonough APRN.[employer] Work Phone: [facility] 04-29-2023 08:45-0400 Body temperature 97.6 [degF] MD Ada Garcia [facility] 04-29-2023 08:45-0400 Diastolic blood pressure 75 mm[Hg] MD Ada Garcia [facility] 04-29-2023 08:45-0400 Heart rate 52 /min MD Ada Garcia [facility] 04-29-2023 08:45-0400 Respiratory rate 16 /min MD Ada Garcia [facility] 04-29-2023 08:45-0400 SaO2% (BldA) [Mass fraction] 99 % MD Ada Garcia [facility] 04-29-2023 08:45-0400 Systolic blood pressure 115 mm[Hg] MD Ada Garcia [facility] 04-28-2023 02:29-0400 Body height 160.02 cm MD Ada Garcia [facility] 04-28-2023 02:29-0400 Body mass index (BMI) [Ratio] 31.2 kg/m2 MD Ada Garcia [facility] 04-28-2023 02:29-0400 Body weight 80.01 kg MD Ada Garcia [facility] 04-22-2023 09:59-0400 Body mass index (BMI) [Ratio] 31.4 kg/m2 MD Ada Garcia [facility] 04-22-2023 09:59-0400 Body weight 80.34 kg MD Ada Garcia [facility] 04-22-2023 09:59-0400 Diastolic blood pressure 74 mm[Hg] MD Ada Garcia [facility] 04-22-2023 09:59-0400 Systolic blood pressure 108 mm[Hg] MD Ada Garcia [facility] 04-15-2023 11:01-0400 Body height 160.02 cm MD Ada THAPA [facility] 04-15-2023 10:58-0400 Body mass index (BMI) [Ratio] 31 kg/m2 MD Ada Garcia [facility] 04-15-2023 10:58-0400 Body weight 79.54 kg MD Ada THAPA [facility] 04-15-2023 10:58-0400 Diastolic blood pressure 71 mm[Hg] MD Ada Garcia [facility] 04-15-2023 10:58-0400 Systolic blood pressure 111 mm[Hg] MD Ada Garcia [facility] 04-10-2023 19:25-0400 Body temperature 98.4 [degF] MD Ada Garcia [facility] 04-10-2023 19:24-0400 Diastolic blood pressure 82 mm[Hg] MD Ada Garcia [facility] 04-10-2023 19:24-0400 Heart rate 106 /min MD Ada Garcia [facility] 04-10-2023 19:24-0400 Systolic blood pressure 129 mm[Hg] MD Ada Garcia [facility] 04-10-2023 17:41-0400 Body height 160.02 cm MD Ada Garcia [facility] 04-10-2023 17:41-0400 Body mass index (BMI) [Ratio] 30.4 kg/m2 MD Ada Garcia [facility] 04-10-2023 17:41-0400 Body weight 78 kg MD Ada Garcia [facility] 04-01-2023 09:22-0400 Body mass index (BMI) [Ratio] 30.3 kg/m2 MD Ada Garcia [facility] 04-01-2023 09:22-0400 Body weight 77.67 kg MD Ada Garcia [facility] 04-01-2023 09:22-0400 Diastolic blood pressure 71 mm[Hg] MD Ada Garcia [facility] 04-01-2023 09:22-0400 Systolic blood pressure 117 mm[Hg] MD Ada Garcia [facility] 03-18-2023 11:03-0400 Body height 160.02 cm MD Ada Garcia [facility] 03-18-2023 11:03-0400 Body mass index (BMI) [Ratio] 29.9 kg/m2 MD Ada Garcia [facility] 03-18-2023 11:03-0400 Body weight 76.65 kg MD Ada Garcia [facility] 03-18-2023 11:03-0400 Diastolic blood pressure 74 mm[Hg] MD Ada Garcia [facility] 03-18-2023 11:03-0400 Systolic blood pressure 118 mm[Hg] MD Ada Garcia [facility] 03-04-2023 10:00-0400 Body mass index (BMI) [Ratio] 29.2 kg/m2 MD Ada Garcia [facility] 03-04-2023 10:00-0400 Body weight 75.01 kg MD Ada Garcia [facility] 03-04-2023 10:00-0400 Diastolic blood pressure 68 mm[Hg] MD Ada Garcia [facility] 03-04-2023 10:00-0400 Systolic blood pressure 106 mm[Hg] MD Ada Garcia [facility] 02-18-2023 14:11-0400 Body height 160.02 cm MD Ada Garcia [facility] 02-18-2023 14:11-0400 Body mass index (BMI) [Ratio] 29.2 kg/m2 MD Ada Garcia [facility] 02-18-2023 14:11-0400 Body weight 74.84 kg MD Ada Garcia [facility] 02-18-2023 14:11-0400 Diastolic blood pressure 72 mm[Hg] MD Ada Garcia [facility] 02-18-2023 14:11-0400 Systolic blood pressure 130 mm[Hg] MD Ada Garcia [facility] 01-21-2023 10:00-0400 Body height 160.02 cm MD Ada Garcia [facility] 01-21-2023 10:00-0400 Body mass index (BMI) [Ratio] 28.5 kg/m2 MD Ada Garcia [facility] 01-21-2023 10:00-0400 Body weight 73.08 kg MD Ada Garcia [facility] 01-21-2023 10:00-0400 Diastolic blood pressure 65 mm[Hg] MD Ada Garcia [facility] 01-21-2023 10:00-0400 Systolic blood pressure 102 mm[Hg] MD Ada Garcia [facility] 12-24-2022 09:09-0400 Body mass index (BMI) [Ratio] 27.8 kg/m2 MD Ada Garcia [facility] 12-24-2022 09:09-0400 Body weight 71.21 kg MD Ada Garcia [facility] 12-24-2022 09:09-0400 Diastolic blood pressure 72 mm[Hg] MD Ada Garcia [facility] 12-24-2022 09:09-0400 Systolic blood pressure 115 mm[Hg] MD Ada Garcia [facility] 11-25-2022 09:49-0400 Body mass index (BMI) [Ratio] 26.4 kg/m2 MD Ada Garcia [facility] 11-25-2022 09:49-0400 Body weight 67.58 kg MD Ada Garcia [facility] 11-25-2022 09:49-0400 Diastolic blood pressure 70 mm[Hg] MD Ada Garcia [facility] 11-25-2022 09:49-0400 Systolic blood pressure 132 mm[Hg] MD Ada Garcia [facility] 10-29-2022 08:32-0500 Body mass index (BMI) [Ratio] 26.2 kg/m2 MD Ada Garcia [facility] 10-29-2022 08:32-0500 Body weight 67.18 kg MD Ada Garcia [facility] 10-29-2022 08:32-0500 Diastolic blood pressure 72 mm[Hg] MD Ada Garcia [facility] 10-29-2022 08:32-0500 Systolic blood pressure 132 mm[Hg] MD Ada Garcia [facility] 10-01-2022 08:36-0500 Body height 160.02 cm MD [facility] 10-01-2022 08:36-0500 Body mass index (BMI) [Ratio] 25.8 kg/m2 [facility] 10-01-2022 08:36-0500 Body weight 66.22 kg [facility] 10-01-2022 08:36-0500 Diastolic blood pressure 75 mm[Hg] [facility] 10-01-2022 08:36-0500 Systolic blood pressure 122 mm[Hg] [facility] 09-16-2022 09:19-0500 Body height 160.02 cm [facility] 09-16-2022 09:18-0500 Body mass index (BMI) [Ratio] 25.3 kg/m2 [facility] 09-16-2022 09:18-0500 Body weight 64.86 kg [facility] 09-16-2022 09:18-0500 Diastolic blood pressure 73 mm[Hg] [facility] 09-16-2022 09:18-0500 Systolic blood pressure 123 mm[Hg] [facility] 09-12-2022 14:17-0500 Body height 160.02 cm [facility] 09-12-2022 14:17-0500 Body mass index (BMI) [Ratio] 26 kg/m2 [facility] 09-12-2022 14:17-0500 Body weight 66.67 kg [facility] 09-12-2022 14:17-0500 Diastolic blood pressure 72 mm[Hg] [facility] 09-12-2022 14:17-0500 Systolic blood pressure 107 mm[Hg] [facility] 09-02-2022 16:46-0500 Body mass index (BMI) [Ratio] 25.8 kg/m2 [facility] 09-02-2022 16:46-0500 Body temperature 97.8 [degF] [facility] 09-02-2022 16:46-0500 Body weight 66.22 kg [facility] 09-02-2022 16:46-0500 Diastolic blood pressure 66 mm[Hg] [facility] 09-02-2022 16:46-0500 Heart rate 132 /min [facility] 09-02-2022 16:46-0500 Respiratory rate 14 /min [facility] 09-02-2022 16:46-0500 SaO2% (BldA) [Mass fraction] 99 % [facility] 09-02-2022 16:46-0500 Systolic blood pressure 118 mm[Hg] [facility] 11-15-2021 10:03-0400 Body height 162.56 cm [facility] Work Phone: 11-15-2021 10:03-0400 Body mass index (BMI) [Ratio] 27.8 kg/m2 [facility] Work Phone: 11-15-2021 10:03-0400 Body weight 73.48 kg [facility] Work Phone: 11-15-2021 10:03-0400 Diastolic blood pressure 70 mm[Hg] [facility] Work Phone: 11-15-2021 10:03-0400 Systolic blood pressure 106 mm[Hg] [facility] Work Phone: 10-04-2021 08:45-0500 Body temperature 98.3 [degF] [facility] Work Phone: 10-04-2021 08:45-0500 Diastolic blood pressure 70 mm[Hg] [facility] Work Phone: 10-04-2021 08:45-0500 Heart rate 101 /min [facility] Phone: 10-04-2021 08:45-0500 Respiratory rate 18 /min [facility]: 10-04-2021 08:45-0500 Systolic blood pressure 116 mm[Hg] [facility] Work Phone: 10-04-2021 01:26-0500 SaO2% (BldA) [Mass fraction] 99 % MD Caballero [facility] Work Phone: 10-01-2021 20:20-0500 Body mass index (BMI) [Ratio] 33.3 kg/m2 [facility] Work Phone: 10-01-2021 20:20-0500 Body weight 85.27 kg [facility] Work Phone: 09-25-2021 07:59-0500 Body mass index (BMI) [Ratio] 33.5 kg/m2 MD Caballero [facility] Work Phone: 09-25-2021 07:59-0500 Body weight 85.72 kg [facility] Work Phone: 09-25-2021 07:59-0500 Diastolic blood pressure 82 mm[Hg] [facility] Work Phone: 09-25-2021 07:59-0500 Systolic blood pressure 130 mm[Hg] [facility] Work Phone: 09-18-2021 08:21-0500 Body mass index (BMI) [Ratio] 32.5 kg/m2 [facility] Work Phone: 09-18-2021 08:21-0500 Body weight 83.46 kg [facility] Work Phone: 09-18-2021 08:21-0500 Diastolic blood pressure 80 mm[Hg] MD [facility] Work Phone: 09-18-2021 08:21-0500 Systolic blood pressure 124 mm[Hg] [facility] Work Phone: 09-12-2021 10:51-0500 Body mass index (BMI) [Ratio] 32.6 kg/m2 MD Caballero [facility] Work Phone: 09-12-2021 10:51-0500 Body weight 83.63 kg [facility] Work Phone: 09-12-2021 10:51-0500 Diastolic blood pressure 70 mm[Hg] [facility] Work Phone: 09-12-2021 10:51-0500 Systolic blood pressure 100 mm[Hg] [facility] Work Phone: 09-04-2021 08:19-0500 Body mass index (BMI) [Ratio] 32.4 kg/m2 [facility] Work Phone: 09-04-2021 08:19-0500 Body weight 83 kg [facility] Work Phone: 09-04-2021 08:19-0500 Diastolic blood pressure 70 mm[Hg] [facility] Work Phone: 09-04-2021 08:19-0500 Systolic blood pressure 122 mm[Hg] [facility] Work Phone: 08-21-2021 12:48-0500 Body mass index (BMI) [Ratio] 32.2 kg/m2 [facility] Work Phone: 08-21-2021 12:48-0500 Body weight 82.55 kg [facility] Work Phone: 08-21-2021 12:48-0500 Diastolic blood pressure 80 mm[Hg] MD Caballero [facility] Work Phone: 08-21-2021 12:48-0500 Systolic blood pressure 136 mm[Hg] MD Caballero [facility] Work Phone: 08-07-2021 08:44-0500 Body mass index (BMI) [Ratio] 30.9 kg/m2 MD Caballero [facility] Work Phone: 08-07-2021 08:44-0500 Body weight 79.37 kg MD Caballero [facility] Work Phone: 08-07-2021 08:44-0500 Diastolic blood pressure 60 mm[Hg] MD Caballero [facility] Work Phone: 08-07-2021 08:44-0500 Systolic blood pressure 122 mm[Hg] MD Caballero [facility] Work Phone: 07-25-2021 07:49-0500 Body mass index (BMI) [Ratio] 30.6 kg/m2 [facility] Work Phone: 07-25-2021 07:49-0500 Body weight 78.47 kg MD Caballero [facility] Work Phone: 07-25-2021 07:49-0500 Diastolic blood pressure 86 mm[Hg] MD Caballero [facility] Work Phone: 07-25-2021 07:49-0500 Systolic blood pressure 136 mm[Hg] [facility] Work Phone: Encounters Encounter Date Encounter Type Care Provider Facility Start: 06-23-2025 End: 06-23-2025 ambulatory Ana Wynne [facility] Start: 06-23-2025 End: 06-23-20[facility] Start: 06-09-2025 End: 06-09-2025 Patient encounter procedure Jeanine Knight CNM -Laboratory Specimen Work Phone: Start: 06-09-2025 End: 06-09-[address] Ada Garcia MD Work Phone: -[facility] Start: 06-09-2025 End: 06-09-2025 Patient encounter procedure Jeanine Knight CNM -[facility] Work Phone: Start: 06-09-2025 End: 06-09-2025 ambulatory Jeanine Knight Facility:[facility] Start: 05-19-2025 End: 05-19-2025 Patient encounter procedure Aspen Morrison FACILITIES MANAGEMENT EXECUTIVE-C -[facility] Work Phone: Start: 05-19-2025 End: 05-19-[address] Ada Garcia MD Work Phone: -[facility] Start: 04-20-2025 End: 04-20-2025 Patient encounter procedure Aspen Morrison NP-C -[facility] Work Phone: Start: 04-20-2025 End: 04-20-[address] Ada Garcia MD Work Phone: -[facility] Start: 04-19-2025 End: 04-19-2025 ambulatory JORGE LUIS OCHOA APRN-CHOIR SINGER Facility:[facility] Start: 04-19-2025 End: 04-19-2025 Patient encounter procedure JORGE LUIS OCHOA APRN-CHOIR SINGER [facility] Start: 04-14-2025 End: 04-14-[address] Ada Garcia MD Work Phone: -[facility] Start: 04-14-2025 End: 04-14-2025 Patient encounter procedure Jeanine Knight CNM -[facility] Work Phone: Start: 04-14-2025 End: 04-14-2025 ambulatory Jeanine Knight Facility:[facility] Start: 03-23-2025 End: 03-23-[address] Serenity Luna DO -[facility] Work Phone: Start: 03-23-2025 End: 03-23-[address] Ada Garcia MD Work Phone: -[facility] Start: 02-24-2025 End: 02-24-[address] Ana Wynne MD -[facility] Work Phone: Start: 02-24-2025 End: 02-24-[address] Ada Garcia MD Work Phone: -[facility] Start: 01-27-2025 End: 01-27-2025 Patient encounter procedure Jeanine Knight CNM -[facility] Work Phone: Start: 01-27-2025 End: 01-27-[address] Ada Garcia MD Work Phone: [facility] Work Phone: Start: 01-27-2025 End: 01-27-2025 ambulatory Jeanine Knight Facility:[facility] Start: 01-14-2025 Non-patient / Non-visit Kiah Farias RN -[facility] Work Phone: Start: 01-14-2025 ambulatory Kiah Farias [facility] Start: 09-14-2024 End: 09-14-2024 ambulatory ADA GARCIA Facility:[facility] Start: 09-14-2024 End: 09-14-2024 Patient encounter procedure Leia Mcdonough APRN.CNP Work Phone: [facility] Comment on above: Sore throat (Primary Dx); Rash Start: 09-03-2024 End: 09-03-2024 ambulatory Jose Scott Facility:[facility] Start: 09-03-2024 End: 09-03-2024 ambulatory Jose Hearne Facility:[facility] Start: 04-29-2023 Non-patient / Non-visit MD Ada THAPA [facility] Start: 04-28-2023 Non-patient / Non-visit MD Ada THAPA [facility] Start: 04-28-2023 End: 04-29-2023 Evaluation and management of inpatient MD Ada THAPA [facility] Work Phone: Start: 04-22-2023 End: 04-22-2023 Patient encounter procedure MD Ada THAPA [facility] Work Phone: Start: 04-15-2023 End: 04-15-2023 ambulatory MD Ada THAPA [facility] Work Phone: Start: 04-15-2023 End: 04-15-2023 Patient encounter procedure MD Ada THAPA [facility] Work Phone: Start: 04-10-2023 Non-patient / Non-visit MD Ada THAPA [facility] Start: 04-10-2023 End: 04-10-2023 ambulatory MD Ada Garcia [facility] Work Phone: Start: 04-10-2023 End: 04-10-2023 Patient encounter procedure MD Ada THAPA [facility] Work Phone: Start: 04-01-2023 End: 04-01-2023 Patient encounter procedure MD Ada THAPA [facility] Work Phone: Start: 03-18-2023 End: 03-18-2023 ambulatory MD Ada THAPA [facility] Work Phone: Start: 03-18-2023 End: 03-18-2023 ambulatory MD Ada THAPA [facility] Work Phone: Start: 03-18-2023 End: 03-18-2023 Patient encounter procedure MD Ada THAPA [facility] Work Phone: Start: 03-04-2023 End: 03-04-2023 Patient encounter procedure MD Ada THAPA [facility] Work Phone: Start: 02-18-2023 End: 02-18-2023 Patient encounter procedure MD Ada THAPA [facility] Work Phone: Start: 02-18-2023 End: 02-18-2023 ambulatory MD Ada THAPA [facility] Work Phone: Start: 02-18-2023 End: 02-18-2023 Patient encounter procedure MD Ada THAPA [facility] Work Phone: Start: 01-21-2023 End: 01-21-2023 ambulatory MD Ada Garcia [facility] Work Phone: Start: 01-21-2023 End: 01-21-2023 Patient encounter procedure MD Ada THAPA [facility] Start: 01-21-2023 End: 01-21-2023 Patient encounter procedure MD Ada THAPA [facility] Start: 12-24-2022 End: 12-24-2022 Patient encounter procedure MD Ada THAPA [facility] Start: 12-12-2022 End: 12-12-2022 ambulatory BANNER Dio BELL [facility] Start: 11-25-2022 End: 11-25-2022 Patient encounter procedure MD Ada THAPA [facility] Start: 10-29-2022 End: 10-29-2022 Patient encounter procedure MD Ada THAPA [facility] Start: 10-01-2022 End: 10-01-2022 ambulatory MD Aad Garcia [facility] Work Phone: Start: 10-01-2022 End: 10-01-2022 Patient encounter procedure MD Ada Garcia [facility] Start: 09-16-2022 End: 09-16-2022 ambulatory MD Ada S [facility] Work Phone: Start: 09-16-2022 End: 09-16-2022 Patient encounter procedure [facility] Start: 09-16-2022 End: 09-16-2022 Patient encounter procedure MD Caballero [facility] Start: 09-12-2022 End: 09-12-2022 ambulatory MD Ada Palmer [facility] Work Phone: Start: 09-12-2022 End: 09-12-2022 Patient encounter procedure MD Caballero [facility]-Laboratory, Specimen Start: 09-12-2022 End: 09-12-2022 Patient encounter procedure MD Caballero [facility] Start: 09-02-2022 End: 09-02-2022 ambulatory MD Ada Palmer [facility] Work Phone: Start: 09-02-2022 End: 09-02-2022 Patient encounter procedure MD Caballero [facility]Laboratory, Specimen Start: 09-02-2022 End: 09-02-2022 Patient encounter procedure MD Caballero [facility] Start: 02-24-2022 ambulatory Rosanna Ramirez APRN.CNP Work Phone: Telemedicine Comment on above: UTI symptoms (Primar y Dx) Start: 11-15-2021 End: 11-15-2021 Patient encounter procedure MD Caballero [facility] Start: 10-04-2021 Non-patient / Non-visit MD Caballero [facility] Start: 10-03-2021 Non-patient / Non-visit MD Caballero [facility] Start: 10-02-2021 Non-patient / Non-visit MD Caballero [facility] Start: 10-01-2021 End: 10-04-2021 Evaluation and management of inpatient MD Caballero [facility] Start: 09-25-2021 End: 09-25-2021 Patient encounter procedure MD Ada Garcia [facility] Start: 09-18-2021 End: 09-18-2021 Patient encounter procedure [facility] Start: 09-12-2021 End: 09-12-2021 Patient encounter procedure MD Caballero [facility] Start: 09-04-2021 End: 09-04-2021 Patient encounter procedure [facility] Start: 09-04-2021 End: 09-04-2021 Patient encounter procedure [facility] Start: 08-21-2021 End: 08-21-2021 Patient encounter procedure [facility] Start: 08-10-2021 Patient encounter procedure [facility] Start: 08-07-2021 End: 08-07-2021 Patient encounter procedure MD Caballero [facility] Start: 07-25-2021 End: 07-25-2021 Patient encounter procedure [facility] Procedures Date Procedure Procedure Detail Performing Clinician [...] HCV Quant by PCR testing - HCVPCR #[id number] Non Reactive: < 0.8 Equivocal: >/= 0.8 [...] AARON 30.0 Detection Limit = 1.0Performed at: [address] [id number] Director: Brian Olivares PhD, Phone: [phone] Start: 01-27-[address] Ada Garcia MD Work Phone: Comment on above: Antibody Result: Int erpretationNon-Reactive: Non- ImmuneReactive: ImmuneThe following results were obtained with the [employer] Rubella IgG assay. Results from assays of other manufacturers cannot be used interchangeably. Start: 01-27-2025 Serologic test for syphilis Dr. Ada Garcia MD Work Phone: Start: 09-14-2024 STREP A MOLECULAR (POC) Leia Mcdonough APRN.[facility] Work Phone: Start: 04-15-2023 Group B [...] P,Tdap,Td Vaccine (4 - Td or Tdap) [facility] Start: 05-19-2025 Measurement of gluco se 2 hours after glucose challenge for glucose tolerance test [facility] Start: 05-19-2025 Serologic test for syphilis [facility] Start: 05-19-2025 [facility] Start: 01-27-2025 CBC W Auto Different ial panel - Blood [facility] Start: 01-27-2025 Hepatitis C antibody measurement [facility] Start: 01-27-2025 Lead measurement, quantitative, blood [facility] Start: 01-27-2025 Rubella IgG measurement [facility] Start: 01-27-2025 Serologic test for syphilis [facility] Start: 01-27-2025 [facility] Start: 01-27-2025 Chlamydia deoxyribon ucleic acid detection [facility] Start: 09-14-2024 End: 12-14-2024 Borrelia burgdorferi IgG and IgM panel - Serum LYME AB EARLY <=30 DAY SYMPTOMS Lab Routine Rash Expected: 09/14/2024, Expires: 12/14/2024 [facility] Work Phone: Comment on above: Expected: 09/14/2024 , Expires: 12/14/2024 Start: 04-25-2024 Covid-19 Vaccine ( season) Covid-19 Vaccine ( season) [facility] Start: 04-25-2024 Influenza vaccination Influenza Vacc ine (#1) [facility] Start: 04-29-2023 Patient discharge [facility] Start: 04-28-2023 Administration of bl ood product [facility] Start: 04-28-2023 Administration of medication [facility] Start: 04-28-2023 Application of ice c ollar, cap or bag [facility] Start: 04-28-2023 Catheterization of vein [facility] Start: 04-28-2023 Introduction of urin quin catheter [facility] Start: 04-28-2023 Measuring intake and output [facility] Start: 04-28-2023 Notification of physician [facility] Start: 04-28-2023 Procedure discontinued [facility] Start: 04-28-2023 Provision of activit y privileges [facility] Start: 04-28-2023 Vital signs measurements [facility] Start: 04-28-2023 [facility] Start: 04-28-2023 Admission procedure [facility] Start: 04-10-2023 Nonstress test [facility] Start: 04-10-2023 Obstetric monitoring [facility] Start: 04-10-2023 Vital signs measurements [facility] Start: 04-10-2023 [facility] Start: 04-10-2023 Patient discharge [facility] Start: 09-12-2022 [facility] Start: 04-25-2022 Influenza vaccination INFLUENZA (#1) [facility] Start: 2017 PAP TESTING PAP TESTING [facility] Start: 2017 Screening for malign ant neoplasm of cervix Cervical Cancer Screening [facility] Start: 2015 Hepatitis B Vaccine (1 of 3 - 19+ 3-dose series) Hepatitis B Vaccine (1 of 3 - 19+ 3-dose series) [facility] Start: 2015 Urine microalbumin profile DTAP,TDAP ,TD (1 - Tdap) [facility] Start: 2014 Anxiety Screening Anxiety Screening [facility] Start: 2014 Depression Screening Depression Scre [facility] Start: 2014 HEPATITIS C SCREENING HEPATITIS C [facility] Start: 2014 Hepatitis C screening Hepatitis C [facility] Start: 2014 HIV SCREENING HIV SCREENING [facility] Start: 2014 HIV screening HIV Screening [facility] Start: 2010 PEDS TO ADULT TRANSI TION ANNUAL ASSESSMENT PEDS TO ADULT TRANSITION ANNUAL ASSESSMENT [facility] Start: 2008 Adult depression scr eening assessment DEPRESSION SCREENING [facility] Start: 2008 PEDS TO ADULT TRANSI TION INITIAL DISCUSSION PEDS TO ADULT TRANSITION INITIAL DISCUSSION [facility] Start: 2007 HPV VACCINE (1 - 2-d ose series) HPV VACCINE (1 - 2-dose series) [facility] Start: 2006 MENINGOCOCCAL B: Con millinery department manager based on risk (1 of 2 - Risk Bexsero 2-dose series) MENINGOCOCCAL B: Consider based on risk (1 of 2 - Risk Bexsero 2-dose series) [facility] Start: 1996 COVID-19 VACCINE (#1) COVID-19 VACCI NE (#1) [facility] ABO and Rh group [Ty pe] in Blood [facility] Bacteria identified in Urine by Culture [facility] Bacteria identified in Urine by Culture Urine Culture [facility] CBC W Auto Different ial panel - Blood [facility] CBC W Auto Different ial panel - Blood [facility] CBC W Auto Different ial panel - Blood [facility] Chlamydia deoxyribon ucleic acid detection [facility] Erythrocyte mean corpuscular volume determination [facility] Glucose [Mass/volume ] in Serum or Plasma --1 hour post 50 g glucose PO [facility] Hematocrit [Volume Fraction] of Blood [facility] Hemoglobin [Mass/vol ume] in Blood [facility] Hepatitis B surface antigen measurement [facility] Hepatitis B virus urbina rface Ag [Presence] in Serum [facility] Hepatitis C antibody measurement [facility] HIV 1+2 Ab+HIV1 p24 Ag [Presence] in Serum or Plasma by Immunoassay [facility] HIV 1+2 Ab+HIV1 p24 Ag [Presence] in Serum or Plasma by Immunoassay [facility] Leukocytes [#/volume ] in Blood [facility] Mean corpuscular hemoglobin concentration determination [facility] Mean corpuscular hemoglobin determination [facility] Neisseria gonorrhoea e rRNA [Presence] in Unspecified specimen by AUDRA with probe detection [facility] Neutrophil count [facility] Neutrophil percent differential count [facility] Patient Education Kick Counts ED False Labor OB Triage: Return to Hospital or Notify Physician if you Experience: [facility] Work Phone: Patient referral [facility] Work Phone: PCR test for Chlamyd ia trachomatis [facility] Platelets [#/volume] in Blood [facility] Red blood cell count [facility] Red cell distributio n width determination [facility] Rubella IgG measurement [facility] Treponema sp Ab [Pre sence] in Serum [facility] Treponema sp Ab [Pre sence] in Serum [facility] Treponema sp Ab [Pre sence] in Serum [facility] Ultrasound scan for growth [facility] Immunizations Immunization Date Immunization Notes Care Provider Fa cility 02-18-2023 tetanus toxoid, redu vira diphtheria toxoid, and acellular pertussis vaccine, adsorbed MD Ada THAPA [facility] 10-03-2021 measles, mumps and rubella virus vaccine [facility]21 measles/mumps/rubell a virus vaccine JORGE LUIS OCHOA ROUGH AND TRUING MACHINE OPERATOR-CHOIR SINGER [facility] 07-11-2021 tetanus toxoid, redu vira diphtheria toxoid, and acellular pertussis vaccine, adsorbed MD Ada Garcia [facility] 07-11-2021 diphtheria, tetanus toxoids and acellular pertussis vaccine, unspecified formulation MD Ada Garcia [facility] Work Phone: Payers Date Payer Category Payer Unknown [id number] 2025 Unknown [id number] 2024 Self-pay [id number] 2024 Unknown DAMIEN SAHU O ZULEIMA [id number] 2024-Present [phone] [address] [place] [address] [facility] [id number] 2024 Unknown [id number] 2024 Private Health Insurance [id number] 2016 Unknown DAMIEN ALVARADO PPO [id number] 2016-Present [phone] [address] [place] [address] PPO [id number] 1996 Unknown [id number]. 479 1996 Unknown [id number] [id number]. 627 Unknown SELF PAY INSURANCE [id number] Unknown [id number] Unknown [id number] Unknown [id number] Unknown [facility] [employer] [facility] . [id number] Unknown [id number] [id number]. 462 Unknown [id number] 2.16840.1.017004.3.579.2. 462 Unknown [id number] 2.16.840.1.494401.3.579.2. 462 Unknown [id number] 2.16.840.1.794956.3.579.2. 462 Unknown [id number] 2.16840.1.465724.3.579.2. 462 Unknown [id number] 2.16840.1.689476.3.579.2. 462 Unknown [id number] 2.16.840.1.364866.3.579.2. 462 Unknown [id number] 2.16.840.1.423456.3.579.2. 462 Unknown [id number] 2.16.840.1.686656.3.579.2. 462 Unknown [id number] 2.16.840.1.492210.3.579.2. 462 Unknown [id number] 2.16.840.1.659081.3.579.2. 462 Unknown [id number] 2.16.840.1.066409.3.579.2. 462 Unknown [id number] 2.16.840.1.956191.3.579.2. 462 Unknown [id number] 2.16.840.1.177910.3.579.2. 462 Unknown [id number] 2..840.1.855280.3.579.2. 462 Social History Date Type Detail Facility Start: 11-15-2021 End: 04-28-2023 Tobacco smoking status [facility] Unknown if ever smoked [facility] Start: 1995 Sex Assigned At Female [facility] Start: 12-16-2017 End: 01-14-2025 Tobacco smoking status ORIS Never smoked tobacco [facility] Start: 12-16-2017 End: 09-14-2024 Tobacco use and exposure Smokeless tobacco non-user [facility] Start: 1995 Sex Assigned At Not on file C [facility] Start: 08-02-2020 End: 09-14-2024 History of Social function [facility] Start: 08-02-2020 End: 09-14-2024 Tobacco use panel [facility] National Score (1-10 0), lower number is lower risk Not on file [facility] Sexual Orientation Sara Ruiz [place] Sex Female (finding) Sara Cope pital Goals Date Patient Goal Desired Activity /State Clinical Notes 02-24-2022 to 06-09-2025 Note Date & Type Note Facility 06-09-2025 Progress note [facility] 06-09-2025 Progress note Note Date/Time June 09, 2025 3:39pm [facility] [address] [place] [address], [address] [place] [address] OFFICE VISIT Date of Service: 06/09/25 MR#: [id number] Acct: [id number] Name: HEATHER ANGEL Rep #: [id number] : 1995 Provider: MAX Knight Age/Sex: 30/F Location: [facility] Status: Signed Intake Vital Signs 04/20/25 10:09 05/19/25 12:53 06/09/25 14:58 Height 5 ft 3 in 5 ft 3 in 5 ft 3 in Weight: 165 lb 3 oz BMI 29.2 BP 115/73 Intake Visit Reasons: 28 WK OB GLUCOSE/RHOGAM Chief Complaint: 28wk OB Cylinder Dyer Required: No Is patient in pain?: No Allergies No Known Allergies Allergy (Verified 06/09/25 15:01) Medications ?Medication ?Instructions ?Recorded ?Confirmed ?Type PNV no.151-iron 27 mg-folic 800 cap PO 09/10/22 History mcg-omega3 260 qn-tdl-gec-fish capsule omega-3 fatty acids 600 mg PO [...] children number of children: 2 current occupation: [employer] current occupational exposures/hazards: No pets and animals: [...] 1-2 times per week duration: 15-30 minutes/day gabriela/baptist: Restoration seatbelt use: always do you feel safe at home: Yes 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 Elective abortions 0 Hx [...] term 9lbs 11oz Male 23 ep idural [facility] SM Bam 04/28/23 Iveth Alba 38 live - full term [id number] Female epidural [facility] Rayna Kuhn Delivery Date: 10/02/21 Last [...] Performing Provider: Jeanine Knight CNM Performing Location: [facility] Administered by: Radha Ohara on 06/09/25 15:08 Dose Route Admin Location Dispensed Lot Number Expiration Date Pack age NDC NDC Corporate [employer] 1,500 unit IM Left Gluteal 1 ea [id number] 03/09/27 79800-968-17 [id number] [employer] Results POC Urinalysis Dip (Clinic) Office Urine Color YELLOW Last Edit by Radha Ohara on 06/09/25 15:35 Office Urine Clarity Cloudy Last Edit by Radha Ohara on 06/09/25 15:35 Office Urine Glucose Negative Last Edit by Radha Ohara on 06/09/25 15:35 Office Urine Ketones Negative Last Edit by Radha Ohara on 06/09/25 15:35 Off Ur Spec Marion 1.015 Last Edit by Radha Ohara on [...] palmer CNM> Date _ [facility] Signature: Date (if applicable) CC: ~ [facility] Work Phone: 1(683) 735-620609-25-2025 Progress [facility] [address] [place] [address], [address] [place], [place] [id number] OFFICE VISIT Date of Service: 05/19/25 MR#: [id number] Acct: [id number] Name: HEATHER ANGEL Rep #: [id number] : 1995 Provider: CAPO Morrison Age/Sex: 30/F Location: [facility] Status: Signed Intake Vital Signs 03/23/25 10:38 04/20/25 10:09 05/19/25 12:53 Height 5 ft 3 in 5 ft 3 in 5 ft 3 in Weight: 159 lb 5 oz BMI 28.2 BP 114/67 Intake Visit Reasons: 25 wk ob Chief Complaint: 25 Week OB Cylinder Dyer Required: No Is patient in pain?: No Allergies No Known Allergies Allergy (Verified 05/19/25 12:57) Medications ?Medication ?Instructions ?Recorded ?Confirmed ?Type PNV no.151-iron 27 mg-folic 800 cap PO 09/10/22 History mcg-omega3 260 pm-ksj-izz-fish capsule omega-3 fatty acids 600 mg PO DAILY 04/10/23 History Last Menstrual Period: 11/24/24 Zika: Zika virus screening: Negative : Yes PFSH PFSH Medical History Galactosemia Biotinidase deficiency Abnormal biopsy result Family History Grandfather Cancer unknown type Grandmother Hypertension Ovarian cancer Paternal Grandfather Hypertension Grandmother Asthma Father Hypertension Social History adopted: No household members: spouse and children number of children: 2 current occupation: [employer] current occupational exposures/hazards: No pets and animals: [...] 1-2 times per week duration: 15-30 minutes/day gabriela/baptist: Restoration seatbelt use: always do you feel safe at home: Yes 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 05/19/25 1312 s FACILITIES MANAGEMENT EXECUTIVE FACILITIES MANAGEMENT EXECUTIVE-C> Date _ Aspen Morrison FACILITIES MANAGEMENT EXECUTIVE FACILITIES MANAGEMENT EXECUTIVE-C Cosigner Signature: Date (if applicable) CC: ~ [facility]08-21-2025 Radiology Diagnostic study note [facility] Imaging Services [address] [place], [place] [id number] OB Anatomy w/ Transvaginal MR#: [id number] Acct: [id number] Name: HEATHER ANGEL Rep #: [id number] : 1995 F 30 From: Delfin Bliss MD PCP: Dr. Ada Garcia MD Status: REG CLI Study:OB Anatomy w/ Transvaginal Date of Exam : 04/14/25 Exam# [id number] Ordering Dr: Jeanine Knight CNM PROCEDURE: OB [...] of 19 weeks and 6days. Reading Location: [id number] CC: MAX Knight; Dr. 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 Tiffany Luna DO Age/Sex: 29/F Location: [facility] Status: Signed Intake Vital Signs 01/27/25 10:32 02/24/25 15:20 03/23/25 10:36 03/23/25 10:38 Height 5 ft 3 in 5 ft 3 in 5 ft 3 in 5 ft 3 in Weight: 142 lb 6 oz 144 lb 147 lb 8 oz BMI 25.2 25.4 26.1 BP 115/75 119/75 123/70 H Intake Visit Reasons: 17wk ob Cylinder Dyer Required: No Is patient in pain?: No Allergies No Known Allergies Allergy (Verified 03/23/25 10:36) Medications ?Medication ?Instructions ?Recorded ?Confirmed ?Type PNV no.151-iron 27 mg-folic 800 cap PO 09/10/22 History mcg-omega3 260 xk-drg-eng-fish capsule omega-3 fatty acids 600 mg PO DAILY 04/10/23 History Last Menstrual Period: 11/24/24 Zika: Zika virus screening: Negative : No PFSH PFSH Medical History Galactosemia Biotinidase deficiency Abnormal biopsy result Family History Grandfather Cancer unknown type Grandmother Hypertension Ovarian cancer Paternal Grandfather Hypertension Grandmother Asthma Father Hypertension Social History adopted: No household members: spouse and children number of children: 2 current occupation: [employer] current occupational exposures/hazards: No pets and animals: [...] 1-2 times per week duration: 15-30 minutes/day gabriela/baptist: Restoration seatbelt use: always do you feel safe at home: Yes 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 Elective abortions 0 Hx [...] term 9lbs 11oz Male 23 ep idural [facility] SM Bam 04/28/23 Iveth Alba 38 live - full term [id number] Female epidural [facility] Rayna Knight Bam Delivery Date: 10/02/21 [...] Movement Monitoring, Signs and Symptoms of Preeclampsia, Jackson Education and Intimate Partner Violence; Discussed Depression [...] e Velde DO> Date _ Serenity Luna [facility] Signature: Date (if applicable) CC: ~ [facility]07-03-2025 Evaluation note* Diagnosis Onset Date Resolution Status [...] Supervision of high-risk acute June 09 2:50pm [facility] Work Phone: [phone]) 113-911007-03-2025 Progress [facility] [address] [place] [address], [address] [place] [address] OFFICE VISIT Date of Service: 02/24/25 MR#: [id number] Acct: [id number] Name: HEATHER ANGEL Rep #: [id number] : 1995 Provider: Dr. Elpidio Wynne MD Age/Sex: 29/F Location: [facility] Status: Signed Intake Vital Signs 09/03/24 06:10 01/27/25 10:32 02/24/25 15:20 Height 5 ft 3 in 5 ft 3 in 5 ft 3 in Weight: 144 lb BMI 25.4 BP 119/75 Intake Visit Reasons: 13wk OB Cylinder Dyer Required: No Is patient in pain?: No Allergies No Known Allergies Allergy (Verified 02/24/25 15:23) Medications ?Medication ?Instructions ?Recorded ?Confirmed ?Type PNV no.151-iron 27 mg-folic 800 cap PO 09/10/22 History mcg-omega3 260 mh-hzz-juo-fish capsule omega-3 fatty acids 600 mg PO DAILY 04/10/2311/16 History Last Menstrual Period: 11/24/24 Zika: Zika virus screening: Negative : No PFSH PFSH Medical History Galactosemia Biotinidase deficiency Abnormal biopsy result Family History Grandfather Cancer unknown type Grandmother Hypertension Ovarian cancer Paternal Grandfather Hypertension Grandmother Asthma Father Hypertension Social History adopted: No household members: spouse and children number of children: 2 current occupation: [employer] current occupational exposures/hazards: No pets and animals: [...] 1-2 times per week duration: 15-30 minutes/day gabriela/baptist: Restoration seatbelt use: always do you feel safe at home: Yes 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 Elective abortions 0 Hx [...] term 9lbs 11oz Male 23 ep idural [facility] SM Bam 04/28/23 Iveth Anjali 38 live - full term [id number] Female epidural [facility] Rayna Knight Bam Delivery Date: 10/02/21 [...] Cosigner Signature: Date (if applicable) CC: ~ [facility]07-03-2025 Progress note Author Ana Wynne [facility] Note Date/Time February 24, 2025 3:34p [facility] [address], [address] [place] [address] OFFICE VISIT Date of Service: 02/24/25 MR#: [id number] Acct: [id number] Name: HEATHER ANGEL Rep #: [id number] : 1995 Provider: Dr. Elpidio Wynne MD Age/Sex: 29/F Location: [facility] Status: Signed Intake Vital Signs 09/03/24 06:10 01/27/25 10:32 02/24/25 15:20 Height 5 ft 3 in 5 ft 3 in 5 ft 3 in Weight: 144 lb BMI 25.4 BP 119/75 Intake Visit Reasons: 13wk OB Cylinder Dyer Required: No Is patient in pain?: No Allergies No Known Allergies Allergy (Verified 02/24/25 15:23) Medications ?Medication ?Instructions ?Recorded ?Confirmed ?Type PNV no.151-iron 27 mg-folic 800 cap PO 09/10/22 History mcg-omega3 260 uu-dhc-isp-fish capsule omega-3 fatty acids 600 mg PO DAILY 04/10/2311/16 History Last Menstrual Period: 11/24/24 Zika: Zika virus screening: Negative : No PFSH PFSH Medical History Galactosemia Biotinidase deficiency Abnormal biopsy result Family History Grandfather Cancer unknown type Grandmother Hypertension Ovarian cancer Paternal Grandfather Hypertension Grandmother Asthma Father Hypertension Social History adopted: No household members: spouse and children number of children: 2 current occupation: [employer] current occupational exposures/hazards: No pets and animals: [...] 1-2 times per week duration: 15-30 minutes/day gabriela/baptist: Restoration seatbelt use: always do you feel safe at home: Yes 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 Elective abortions 0 Hx [...] term 9lbs 11oz Male 23 ep idural [facility] SM Bam 04/28/23 Iveth Alba 38 live - full term [id number] Female epidural [facility] Rayna Knight Bam Delivery Date: 10/02/21 [...] Movement Monitoring, Signs and Symptoms of Preeclampsia, Jackson Education and Intimate Partner Violence; Discussed Depression [...] PRR, ; RONEY 08/31/24; PC: [place]; : Bma (6) : Status: Acute Qualifiers: Weeks of gestation: 13 weeks Qualified Code(s): Z3A.13 - 13 weeks gestation of Comment: Discussed genetic/carrier testing - undecided; prior carrier testing done (7) 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; 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 (8) 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; 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 Orders: Orders POC Urinalysis 2 Dip (Clinic) Today 02/24/25 0884 <Electronically signed by Ana douglas MD> Date _ Ana Valencia Signature: Date (if applicable) CC: ~ [facility] Work Phone: 1([phone]) 476-186806-05-2025 Evaluation note* Diagnosis Onset Date Resolution Status [...] high-risk a cute January 27, 2025 10:17am [facility] Work Phone: [phone]) [phone] Evaluation note* Diagnosis Onset Date Resolution Status [...] high-risk a cute February 24, 2025 3:17pm [facility] Work Phone: [phone]) 750-369406-05-2025 Evaluation note* Diagnosis Onset Date Resolution Status [...] high-risk a cute March 23, 2025 10:27am [facility] Work Phone: [phone]) [phone] Evaluation note* Diagnosis Onset Date Resolution Status [...] Supervision of high-risk acute April 20 9:59am [facility] Work Phone: [phone]) 128-383406-05-2025 Evaluation note* Diagnosis Onset Date Resolution Status [...] of high-risk acute May 19, 2025 12:50pm [facility] Work Phone: [phone]) 417-592206-05-2025 Progress [facility] [address], [address] [place] [address] OFFICE VISIT Date of Service: 01/27/25 MR#: [id number] Acct: [id number] Name: HEATHER ANGEL Rep #: [id number] : 1995 Provider: MAX Knight Age/Sex: 29/F Location: [facility] Status: Signed Intake Vital Signs 09/03/24 06:10 01/27/25 10:32 Height 5 ft 3 in 5 ft 3 in Weight: 142 lb 6 oz BMI 25.2 BP 115/75 Intake Visit Reasons: NOB LMP 4/ Chief Complaint: New OB Cylinder Dyer Required: No Is patient in pain?: No Allergies No Known Allergies Allergy (Verified 01/27/25 10:30) Medications ?Medication ?Instructions ?Recorded ?Confirmed ?Type PNV no.151-iron 27 mg-folic 800 cap PO 09/10/22 History mcg-omega3 260 es-xfw-eqe-fish capsule omega-3 fatty acids 600 mg PO DAILY 04/10/2301/16 History Last Menstrual Period: 11/24/24 [facility] PFS Medical History Galactosemia Biotinidase deficiency Abnormal biopsy result Family History Grandfather Cancer unknown type Grandmother Hypertension Ovarian cancer Paternal Grandfather Hypertension Grandmother Asthma Father Hypertension Social History adopted: No household members: spouse and children number of children: 2 current occupation: [employer] current occupational exposures/hazards: No pets and animals: [...] 1-2 times per week duration: 15-30 minutes/day gabriela/baptist: Restoration seatbelt use: always do you feel safe at home: Yes 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 Elective abortions 0 Hx [...] term 9lbs 11oz Male 23 ep idural [facility] SM Bam 04/28/23 Iveth Alba 38 live - full term [id number] Female epidural [facility] Rayna Knight Bam Delivery Date: 10/02/21 [...] transfusions, Pulmonary (e.g.,TB,Asthma), Seasonal allergies, Drug/latex allergies/reactions, Paper Roll Machine Operator surgery, Operations/hospitalizations, Anesthetic complications, History [...] Regaladoigndesirae Signature: Date (if applicable) CC: ~ [facility] [id number] NoteHNO ID: [id number] Author: LEIA MCDONOUGH APRN.[facility] Service: ? Author Type: Nurse Practitioner [...] history is provided by the patient. No supervisor modern languages was used. Rash Review of Systems Constitutional: [...] Patient agreeable to care plan. Leia Mcdonough APRN.[facility]01-21-2025 History of Present illness Narrative* Leia Mcdonough APRN.[facility] - 09/14/2024 7:39 PM EST Images [...] history is provided by the patient. No supervisor modern languages was used. Rash Review of Systems Constitutional: [...] Patient agreeable to care plan. Leia Mcdonough APRN.[facility] documented in [facility] Progress note Author Ana Wynne [facility] April 29, 2023 6:10am Note Date/Time April 29, 2023 6:10am [facility] Medical Records Department [address] [place] [address] Progress Note - OBGYN 04/29/23 0609 MR#: [id number] Acct: [id number] Name: HEATHER ANGEL Rep #:[id number] : 1995 28 From: Ana valera MD PCP: Dr. Ada Garcia MD Status:ADM IN Location: [id number] Subjective Subjective Patient doing well without complaints. [...] Cosigner Signature (if applicable): CC: ~ Signed [facility] Work Phone: 1([phone]) 281-375009-04-2023 Discharge summary Author Jeanine Knight [facility] April 28, 2023 5:34am Note Date/Time April 28, 2023 5:34am [facility] Medical Records Department [address] [place] [address] Instructions for Home/Discharge Instructions 04/28/23533 MR#: [id number] Acct: [id number] Name: HEATHER ANGEL Rep #:[id number] : [...] Ada Garcia Discharge Orders/Prescriptions Prescriptions: No Action SJY469-wxyl-QX-p0-vor-duf-ggbm 27 mg iron-800 mcg-260 mg capsule PO omega-3 fatty acids Capsule 600 mg PO DAILY ascorbic acid (vitamin C) [Vitamin C] 250 mg tablet 250 mg PO DAILY Referrals / Follow Up: Ada Garcia MD [Primary Care Provider] - Disposition Disposition (needs filled in before D/C Order can be placed): Home, Self Care 04/28/23 0534<Electronically signed by Jeanine Kinght CNM>Jeanine Knight CNM CC: Dr. Ada Garcia MD ~ Signed [facility] Work Phone: [phone]) [phone] Procedure [facility] 04-28-2023 History and physical note Author Jeanine Knight [facility] April 28, 2023 3:12am Note Date/Time April 28, 2023 3:13am 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 Ada Garcia MD Status:ADM IN Location: [id number] HPI - General General Date of Admission: [...] PNV no.151-iron 27 mg-folic 800 mcg-omega3 260 uf-vob-wtj-fish capsule cap PO 09/10/22 [History Last Taken [...] 1 current occupational status: unemployed current occupation: [employer] pets and animals: Yes pets and animals: dog(s) history of recent travel: No sexually active: Yes Smoking Status: Never smoker alcohol intake: never substance use type: does not use well-balanced diet: daily or most days caffeine: No eating out: rarely or never during the past year weight has: decreased > 10 lbs what type of physical activity do you participate in: none gabriela/baptist: Restoration seatbelt use: always do you feel safe at home: Yes additional social 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 Charges/Coding Multi Select Codes Urinary/Genital Urinary/Genital CPT Codes: No Charge 04/28/23311 <Electronically signed by Jeanine Knight CNM> Cosigner Signature (if applicable): CC: MAX Knight; Dr. Ada Garcia MD~ Signed [facility] Work Phone: [phone] History of Present illness Narrative* Rosanna Ramirez [...] patient Rosanna Ramirez APRN.CNP documented in this encounterBl[facility] HospitalEvaluation + Plan note No data available for this section [facility] Evaluation note* Diagnosis Onset Date Resolution [...] risk , antepartum resolved Vaginal delivery resolved [facility] Work Phone: Evaluation note* Diagnosis UTI symptoms- Primary Other symptoms involving urinary system documented in this encounter [facility]* Diagnosis Onset Date Resolution Status acute Urinary tract infection with hematuria acute Urinary tract infection with hematuria acute [facility] Work Phone: Evaluation note* Diagnosis Onset Date Resolution Status acute Urinary tract infection with hematuria acute Urinary tract infection with hematuria acute History of miscarriage, currently acute acute Rh negative state in antepartum period acute Supervision of high risk , antepartum acute Urinary tract infection with hematuria [facility] Work Phone: Evaluation note* Diagnosis Onset [...] acute Urinary tract infection with hematuria acute [facility] Work Phone: Evaluation note* Diagnosis Onset Date [...] acute Urinary tract infection with hematuria acute [facility] Work Phone: evaluation note* Diagnosis Onset Date [...] acute Urinary tract infection with hematuria acute [facility] Work Phone: evaluation note* Diagnosis Onset Date [...] Supervision of high risk , antepartum acute [facility] Work Phone: Evaluation note* Diagnosis Onset Date [...] Supervision of high risk , antepartum acute [facility] Work Phone: evaluation note* Diagnosis Onset Date [...] acute Urinary tract infection with hematuria acute [facility] Work Phone: Evaluation note* Diagnosis Onset Date [...] resolved Urinary tract infection with hematuria resolved [facility] Work Phone: Evaluation note* Diagnosis Sore throat- [...] high-risk a cute January 27, 2025 10:17am [facility] Work Phone: Hospital Discharge instructions No data available for this section [facility] Progress note Author Jeanine Knight [facility] April 10, 2023 7:40pm Note Date/Time April 10, 2023 7: 41pm [facility] Medical Records Department [address] [place] [address] OB Triage Progress Note 04/10/23 193 MR#: [id number] Acct: [id number] Name: HEATHER ANGEL Rep #:[id number] : 1995 28 From: Jeanine Knight CNM PCP: Dr. Ada Garcia MD Status:REG CLI Y DOS: Location: [place] [address] Progress Notes Date of Service: 04/10/23 Progress Note: Patient presents for triage evaluation secondary to contractions FHT: 150 Moderate variability reactive no decelerations category I tracing Morales-Sanchez: mild Contractions-resolved with oral hydration Assessment and plan: Reactive NST, reassuring maternal and status patientdischarged to home to follow-up at next appointment. Urine neg for UTI. See problem list details for additional plan information. Laboratory Studies: Laboratory Tests 04/10/23 Range/Units 18:50 Urine Color Yellow (Yellow) Urine Clarity Clear (Clear) Urine pH 7.0 (5.0 - 8.0) Ur Specific Marion 1.010 (1.002-1.030) Urine Protein Negative (Negative) mg/dl [...] Multi Select Codes Urinary/Genital Urinary/Genital CPT Codes: 84624-13 non-stress test Inter Assessment & Plan (1) [...] Supervision of high risk , antepartum: COMMENT: [id number], RONEY 05/09/23, LYNDA Macdonald, Bam (7) : QUALIFIERS: Weeks of gestation: 30 weeks Qualified Code(s): Z3A.30 - 30 weeks gestation of COMMENT: discussed genetic & carrier testing 04/10/231939 <Electronically signed by Jeanine palmer CNM> Date _ Jeanine Knight CNM Cosigner Signature (if applicable): Date CC: MAX Knight; Dr. Ada Garcia MD ~ Signed [facility] Work Phone: Progress note Author Jeanine Knight [facility] Note Date/Time January 27, 2025 11:01 am [facility] [address] [place] [address], [address] [place] [address] OFFICE VISIT Date of Service: 01/27/25 MR#: [id number] Acct: [id number] Name: HEATHER ANGEL Rep #: [id number] : 1995 Provider: MAX Knight Age/Sex: 29/F Location[facility] Status: Signed Intake Vital Signs 09/03/24 06:10 01/27/25 10:32 Height 5 ft 3 in 5 ft 3 in Weight: 142 lb 6 oz BMI 25.2 BP 115/75 Intake Visit Reasons: NOB LMP 4/ Chief Complaint: New OB Cylinder Dyer Required: No Is patient in pain?: No Allergies No Known Allergies Allergy (Verified 01/27/25 10:30) Medications ?Medication ?Instructions ?Recorded ?Confirmed ?Type PNV no.151-iron 27 mg-folic 800 cap PO 09/10/22 History mcg-omega3 260 fl-efg-imn-fish capsule omega-3 fatty acids 600 mg PO DAILY 04/10/2301/16 History Last Menstrual Period: 11/24/24 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 Elective abortions 0 Hx [...] term 9lbs 11oz Male 23 ep idural [facility] SM Bam 04/28/23 Iveth Anjali 38 live - full term [id number] Female epidural [facility] Rayna Knight Bam Delivery Date: 10/02/21 [...] transfusions, Pulmonary (e.g.,TB,Asthma), Seasonal allergies, Drug/latex allergies/reactions, Paper Roll Machine Operator surgery, Operations/hospitalizations, Anesthetic complications, History [...] Movement Monitoring, Signs and Symptoms of Preeclampsia, Jackson Education and Intimate Partner Violence; Discussed Depression [...] Cosigner Signature: Date (if applicable) CC: ~ [facility] Work Phone: Progress note Author Serenity Shin [facility] Note Date/Time March 23, 2025 10:5 9am [facility] [address] [place] [address], [address] [place] [address] OFFICE VISIT Date of Service: 03/23/25 MR#: [id number] Acct: [id number] Name: HEATHER ANGEL Rep #: [id number] : 1995 Provider: Dr. 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 Required: No Is patient in pain?: No Allergies No Known Allergies Allergy (Verified 03/23/25 10:36) Medications ?Medication ?Instructions ?Recorded ?Confirmed ?Type PNV no.151-iron 27 mg-folic 800 cap PO 09/10/22 History mcg-omega3 260 jw-gde-bds-fish capsule omega-3 fatty acids 600 mg PO DAILY 04/10/23 History Last Menstrual Period: 11/24/24 Zika: Zika virus screening: Negative : No PFSH PFSH Medical History Galactosemia Biotinidase deficiency Abnormal biopsy result Family History Grandfather Cancer unknown type Grandmother Hypertension Ovarian cancer Paternal Grandfather Hypertension Grandmother Asthma Father Hypertension Social History adopted: No household members: spouse and children number of children: 2 current occupation: [employer] current occupational exposures/hazards: No pets and animals: [...] 1-2 times per week duration: 15-30 minutes/day gabriela/baptist: Restoration seatbelt use: always do you feel safe at home: Yes 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 Elective abortions 0 Hx [...] term 9lbs 11oz Male 23 ep idural [facility] Bam 04/28/23 Iveth Anjali 38 live - full term [id number] Female epidural [facility] Rayna Kuhn Delivery Date: 10/02/21 Last [...] Movement Monitoring, Signs and Symptoms of Preeclampsia, Jackson Education and Intimate Partner Violence; Discussed Depression [...] Henryigndesirae Signature: Date (if applicable) CC: ~ [facility] Work Phone: Progress note No data available for this section [facility] Progress note Author Aspen Morrison [facility] Note Date/Time May 19, 2025 1:09pm [facility] [address] [place] [address], [address] [place] [address] OFFICE VISIT Date of Service: 05/19/25 MR#: [id number] Acct: [id number] Name: HEATHER ANGEL Rep #: [id number] : 1995 Provider: CAPO Morrison Age/Sex: 30/F Location: [facility] Status: Signed Intake Vital Signs 03/23/25 10:38 04/20/25 10:09 05/19/25 12:53 Height 5 ft 3 in 5 ft 3 in 5 ft 3 in Weight: 159 lb 5 oz BMI 28.2 BP 114/67 Intake Visit Reasons: 25 wk ob Chief Complaint: 25 Week OB Cylinder Dyer Required: No Is patient in pain?: No Allergies No Known Allergies Allergy (Verified 05/19/25 12:57) Medications ?Medication ?Instructions ?Recorded ?Confirmed ?Type PNV no.151-iron 27 mg-folic 800 cap PO 09/10/22 History mcg-omega3 260 xf-zur-xtv-fish capsule omega-3 fatty acids 600 mg PO DAILY 04/10/23 History Last Menstrual Period: 11/24/24 Zika: Zika virus screening: Negative : Yes PFSH PFSH Medical History Galactosemia Biotinidase deficiency Abnormal biopsy result Family History Grandfather Cancer unknown type Grandmother Hypertension Ovarian cancer Paternal Grandfather Hypertension Grandmother Asthma Father Hypertension Social History adopted: No household members: spouse and children number of children: 2 current occupation: [employer] current occupational exposures/hazards: No pets and animals: [...] 1-2 times per week duration: 15-30 minutes/day gabriela/baptist: Restoration seatbelt use: always do you feel safe at home: Yes 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 Elective abortions 0 Hx [...] term 9lbs 11oz Male 23 ep idural [facility] SM Bam 04/28/23 Iveth Alba 38 live - full term [id number] Female epidural [facility] Rayna Knight Bam Delivery Date: 10/02/21 [...] Symptoms of Preeclampsia, Infant Feeding Yes , Jackson Education, Family Medical Leave or Disability Forms [...] 05/19/25 1312 <Electronically signed by Aspen palmer FACILITIES MANAGEMENT EXECUTIVE FACILITIES MANAGEMENT EXECUTIVE-C> Date _ Aspen Morrison NP FACILITIES MANAGEMENT EXECUTIVE-C Cosigner Signature: Date (if applicable) CC: ~ [facility] Work Phone: Reason for referral (narrative)No reason for referral information availableSan [facility]e [facility] Work Phone: Chief Complaint and [...] 2025 12:50pm [facility] 12:50pm Supervision of high-risk [facility] 2024 12:50pm Chief Complaint Admit Date 13wk [...] Will No October 01 11:09pm Power of Grain Miller Helper No October 01, 2021 11:09pm Advance Directive Response Recorded Date/ Time Living Will No October 01 10:09pm Power of Grain Miller Helper No October 01, 2021 10:09pm Advance Directive Response Recorded Date/ Time Living Will No April 28 2:42am Power of Grain Miller Helper No April 28, 2023 2:42am Summary Purpose [...] this informatio n is protected by the [facility] [place] Confidentiality of Alcohol and Drug Abuse Patient Records regulations: The Federal rules restrict any use of the information to criminally investigate or prosecute any alcohol or drug abuse patient.[facility] the event this information is protected by the Federal Confidentiality of Alcohol and Drug Abuse Patient Records regulations: The Federal rules restrict any use of the information to criminally investigate or prosecute any alcohol or drug abuse patient.[facility] Reason for Visit (unrecogniz ed section and content) Reason Comments UTI Reason Comments Rash all over x 1 day Care Teams (unrecognized sec tion and content) Orchid Transplanter Relationship Specialty Start Date End Date Ada Garcia [address] [place] [address] PCP - General Family Practice 05/14/19 Team [...] Care Provider, Referring Provider Active Aspen Morrison FACILITIES MANAGEMENT EXECUTIVE, FACILITIES MANAGEMENT EXECUTIVE-C Attending Provider Active Team Status: Inactive Member [...] THAPA MD Referring Provider Active Aspen Morrison FACILITIES MANAGEMENT EXECUTIVE, FACILITIES MANAGEMENT EXECUTIVE-C Attending Provider Active Dr. Ada Garcia MD Primary Care Provider Active Team Status: Active Member Role Status Sienna Knight CNM Attending Provider, Referring Pro vider Active Dr. Ada Garcia MD Primary Care Provider Active Team Status: Inactive Member Role Status Dates Dr. Ada Garcia MD Primary Care Provider Active Aspen Morrison FACILITIES MANAGEMENT EXECUTIVE, FACILITIES MANAGEMENT EXECUTIVE-C Attending Provider, Referring Provider Active Team Status: [...] CNM Admit Provider, Attending Provide r Active Orchid Transplanter Relationship Specialty Start Date End Date Ada Garcia [address] [facility] [address] [place] [address] PCP - General Family Medicine 05/14/19 Team [...] Active Member Role/Relationship Status Dates Dominick Zaldivar [facility] Provider Active Dr. Ada Garcia MD Primary [...] Status: Active Member Role/Relationship Status Dates Dr. Aad Garcia MD Primary Care Provider Active Team [...] 2025 End: April 20, 2025 Aspen Morrison FACILITIES MANAGEMENT EXECUTIVE, FACILITIES MANAGEMENT EXECUTIVE-C Attending Provider Active Start: April 20, 2025 [...] End: April 20, 2025 Aspen Morrison NP, FACILITIES MANAGEMENT EXECUTIVE-C Attending physician Active Start: April 20, 2025 End: April 20, 2025 Team Status: Inactive Member Role/Relationship Status Dates Dr. Ada Garcia MD Primary care physician Active Start: May 19, 2025 End: May 19, 2025 Dr. Ada Garcia MD Referring Provider Active Start: May 19, 2025 End: May 19, 2025 Aspen Morrison NP, FACILITIES MANAGEMENT EXECUTIVE-C Attending physician Active Start: May 19, 2025 [...] End: April 20, 2025 Aspen Morrison NP FACILITIES MANAGEMENT EXECUTIVE-C Attending physician Active Start: April 20, 2025 End: April 20, 2025 Team Status: Inactive Member Role/Relationship Status Dates Dr. Ada Garcia MD Primary care physician Active Start: May 19, 2025 End: May 19, 2025 Dr. Ada Garcia MD Referring Provider Active Start: May 19, 2025 End: May 19, 2025 Aspen Morrison FACILITIES MANAGEMENT EXECUTIVE, FACILITIES MANAGEMENT EXECUTIVE-C Attending physician Active Start: May 19, 2025 End: May 19, 2025 Team Status: Inactive Member Role/Relationship Status Dates Dr. Ada Garcia MD Primary care physician Active Start: June 09, 2025 End: June 09, 2025 Aspen Morrison FACILITIES MANAGEMENT EXECUTIVE, FACILITIES MANAGEMENT EXECUTIVE-C Attending physician Active Start: June 09, 2025 End: June 09, 2025 Aspen Morrison NP FACILITIES MANAGEMENT EXECUTIVE-C Referring Provider Active Start: June 09, 2025 [...] section and content) DATE CREATED AUTHOR 01/07/2023 [facility] DATE CREATED AUTHOR AUTHOR'S ORGANIZ ATION 09/16/2024 [facility] DATE CREATED AUTHOR AUTHOR'S ORGANIZ ATION 04/22/2025 [facility] DATE CREATED AUTHOR AUTHOR'S ORGANIZ ATION 07/01/2025 [facility] FOR RECORDS PERTAINING TO PATIENTS WHO ARE [...] BE BASED ON THE PRIMARY CLINICAL RECORDS. [facility]. provides no warranty or guarantee of the accuracy or completeness of information in this document.
[2025-08-21] MEDS: Lactated Ringers 1,000 ML 999 ML IV (21:50)
[2025-08-21 22:01] LABS: Hematocrit 34.1 % (37-47); Hemoglobin 11.8 g/dL (12.0-15.0); Immature Granulocytes Count 0.050 X10^3/uL (0.0-0.0); Mean Corp Hgb Conc 34.6 g/dL (32-36); Mean Corpuscular Volume 85.9 fL (81-99); Mean Platelet Vol. 10.9 fl (6.2-12.0); NRBC Flagged by Analyzer 0 % (0-5); Platelet Count 145 K/mm3 (150-450); RBC Distribution Width CV 12.0 % (11.6-14.6); RBC Distribution Width SD 37.7 fl (35.1-43.9); Red Blood Count 3.97 M/mm3 (4.2-5.4); White Blood Count 9.6 K/mm3 (4.4-11.0)
--- NOTE | 2025-08-21 22:03 | HP.PCM.OB_ITS ---
HPI - General General Date of Admission: 08/21/25 Chief Complaint: Contractions HPI Narrative HEATHER GUERRERO, is a 30 F who presents ambulatory to L&D with complaint of u/c's off & on all day which are becoming stronger & more frequent. Maternal Data Information RONEY Calculator Estimated Delivery Date Method Current WG Current Estimate 09/01/25 Ultrasound #1 38w 3d Other Estimates 08/31/25 LMP (Certain) 38w 4d PFSH PFSH Medical History Galactosemia Biotinidase deficiency Abnormal biopsy result Home Medications Medication Instructions Recorded Last Taken Type PNV no.151-iron 27 mg-folic 800 cap PO 09/10/22 Unknow n History mcg-omega3 260 gv-grt-odb-fish capsule omega-3 fatty acids 600 mg PO DAILY 04/10/23 08:00 History 600 mg Allergy/AdvReac Type Severity Reaction Status Date / Time No Known Allergies Allergy Verified 08/17/25 08:38 Family History Grandfather Cancer unknown type Grandmother Hypertension Ovarian cancer Paternal Grandfather Hypertension Grandmother Asthma Father Hypertension Social History adopted: No household members: spouse and children number of children: 2 current occupation: [employer] current occupational exposures/hazards: No pets and animals: Yes pets and animals: dog(s) and farm animals history of recent travel: No sexually active: Yes Smoking Status: Never smoker second hand exposure: No alcohol intake: never substance use type: does not use well-balanced diet: daily or most days caffeine: No eating out: rarely or never during the past year weight has: decreased > 10 lbs what type of physical activity do you participate in: walking frequency: 1-2 times per week duration: 15-30 minutes/day gabriela/amish: Pentecostalism seatbelt use: always do you feel safe at home: Yes 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 Date Name GA/Weeks Outcome Route Bth Weight Infant Gen Labor Lgth Anesthesia Del Locatn Provider FOB Unknown 11/2020 spontaneous Unknown 12/2020 spontaneous 10/02/21 Jacsindi 40 live - full term 9lbs 11oz Male 23 ep idural [facility] SM Bam 04/28/23 Iveth Alba 38 live - full term [id number] Female epidural [facility] Rayna Knight Bam Delivery Date: 10/02/21 Last Updated by: Chacha Farmer SROM 40w SM Renae Delivery Date: 04/28/23 Last Updated by: Sharda James IOL Visit Details Expected Delivery Route/Plan Labor Preferences- CB/BF classes: no labor support person: Bam labor intervention preferences: [] pain management options preferred: epidural cut cord/dad catch: cord : yes PP control planned: discussed discussed possible routes of delivery and associated risks: [] special requests: [] Plans Covid status: [] Flu vaccine: declined Tdap vaccine: given Rhogam: na LARC form signed: yes movement and labor precautions reviewed. Problem list reviewed and updated with the most current plan of care details and appropriate orders placed. Relevant counseling for the gestational age provided. Continue routine care and follow up unless otherwise noted in visit notes/problem list details OB Flowsheet Initial Weight: 142 lb Date - - - - - - - - - - - - - EGA Weight BP Urine Prot - - - - - - - - - - - - - Glucose FHR FuHt Pres Dilation - - - - - - - - - - - - - Effaced St Visit Note 01/27/25 - - - - - - - - - - - - - 9w 0d 142 lb 6 oz (+6 oz) 115/75 - - - - - - - - - - - - - 169 - - - - - - - - - - - - - KW- CRL cons wit h dates. denies nipt. lead exposure and requesting lead testing-added to NOB labs 02/24/25 - - - - - - - - - - - - - 13w 0d 144 lb (+2 lb) 119/75 Negative - - - - - - - - - - - - - Negative 150 - - - - - - - - - - - - - SM- no vb crampi ng 03/23/25 - - - - - - - - - - - - - 16w 6d 147 lb 8 oz (+5 lb 8 oz) 123/70 Negative - - - - - - - - - - - - - Negative 147 - - - - - - - - - - - - - JV- starting to feel some fluttering. no cramping or bleeding. 04/20/25 - - - - - - - - - - - - - 20w 6d 152 lb 6 oz (+10 lb 6 oz) 120/77 Negative - - - - - - - - - - - - - Negative 145 - - - - - - - - - - - - - MH-NO VB. Kwamein g good movement. Nl anatomy US 05/19/25 - - - - - - - - - - - - - 25w 0d 159 lb 5 oz (+17 lb 5 oz) 114/67 Negative - - - - - - - - - - - - - Negative 141 25 - - - - - - - - - - - - - MH-No Vb, LOF. G ood FM. Larc 06/09/25 - - - - - - - - - - - - - 28w 0d 165 lb 3 oz (+23 lb 3 oz) 115/73 Negative - - - - - - - - - - - - - Negative 155 28 - - - - - - - - - - - - - KW- no vb/lof/ct x. glucose today. Rhogam given. would like to wait on tdap. declines flu 06/23/25 - - - - - - - - - - - - - 30w 0d 166 lb 5 oz (+24 lb 5 oz) 129/80 Negative - - - - - - - - - - - - - Negative 140 30 - - - - - - - - - - - - - SM- no vb lof go od fm no regular ctx 07/08/25 - - - - - - - - - - - - - 32w 1d 169 lb 2 oz (+27 lb 2 oz) 133/77 Negative - - - - - - - - - - - - - Negative 140 32 - - - - - - - - - - - - - KW- no vb/lof/ct x. good fm 07/20/25 - - - - - - - - - - - - - 33w 6d 173 lb 8 oz (+31 lb 8 oz) 112/77 Negative - - - - - - - - - - - - - Negative 135 34 - - - - - - - - - - - - - JV- no lof, vagi nal bleeding, or dec fm. 08/04/25 - - - - - - - - - - - - - 36w 0d 175 lb 6 oz (+33 lb 6 oz) 124/80 Negative - - - - - - - - - - - - - Negative 139 36 - - - - - - - - - - - - - KV- Good FM. Occ asional runs of ctx. No LOF/VB. GBS and CBC to check plt today. 08/12/25 - - - - - - - - - - - - - 37w 1d 175 lb 8 oz (+33 lb 8 oz) 121/80 Negative - - - - - - - - - - - - - Negative 140 3.5 Cephalic - - - - - - - - - - - - - JV- no lof, vagi nal bleeding, or dec fm. declines pelvic exam. gbs neg. 08/17/25 - - - - - - - - - - - - - 37w 6d 178 lb (+36 lb) 120/77 Negative - - - - - - - - - - - - - Negative 140 38 Cephalic 3 - - - - - - - - - - - - - 70 -2 KW- no vb/ lof/ctx. good fm. NST Assessment Assessment Detail: current tracing: FHT: 140, accelerations present, decelerations absent, Moderate variability reactive, category I tracing [place]: Contractions every 3 to 6 mins, lasting 60 to 100 seconds. Palpates moderate. A/P: Active labor. FHR Category 1. ROS Constitutional Constitutional: Reports systems reviewed and no addt'l complaints, except as documented Cardiovascular Cardiovascular: Reports systems reviewed and no addt'l complaints, except as documented Respiratory/Chest Respiratory/Chest: Reports systems reviewed and no addt'l complaints, except as documented Gastrointestinal Gastrointestinal: Reports systems reviewed and no addt'l complaints, except as documented Genitourinary Genitourinary: Reports systems reviewed and no addt'l complaints, except as documented Psychiatric Psychiatric: Reports systems reviewed and no addt'l complaints, except as documented Vital Signs Vital Signs Vital Signs: 08/21/25 21:19 08/21/25 21:19 08/21/25 21:19 Temperature 97.9 F Pulse Rate 108 H Blood Pressure 128/79 H BP Systolic 128 BP Diastolic 79 Weight Weight: 178 lb 4 oz Body Mass Index (BMI) 31.6 PRE- weight 135 lb PRE- Body Mass Index 23.9 (BMI) Physical Exam Const alert, oriented x3 and no apparent distress General Appearance: cooperative and comfortable HEENT normocephalic and moist oral mucous membranes Chest inspection of chest normal Resp normal respiratory effort and no retractions Resp Narrative: Respirations eased & unlabored. No s/s of respiratory distress noted. Cardio regular rate and regular rhythm GI soft to palpation and non-tender GI Narrative: Gravid. Manual OB Exam: dilated 5-6cm, effaced 90% and station -1 Psych mental status grossly normal, affect normal and speech normal Labs Labs Labs: Blood Type O NEGATIVE Antibody Screen NEGATIVE Hct, (37-47) 34.1 % L Hgb, (12.0-15.0) 11.8 g/dL L Obstetrics Ultrasound Syphilis Total Ab, (Nonreactive) Nonreactive Rubella IgG Antibody, (Nonreactive) REAC Hep Bs Antigen, (Nonreactive) Nonreactive Hepatitis C Antibody, (Nonreactive) Nonreactive Chlamydia DNA (AUDRA), (Negative) Negative N.gonorrhoeae DNA (AUDRA), (Negative) Negative HIV 1&2 Antibody, (Nonreactive) Nonreactive Glucose 1 Hr 50 gm, (70-140) 78 mg/dL Rhogam given: Yes Assessment & Plan (1) Gestational thrombocytopenia: COMMENT: repeat CBC in 4w:139 to 129:repeat 4 wk:127. 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 Pain management: plans epidural. GBS Negative. Management of any complications: none I have reviewed the [facility] and made any clinically relevant updates. Charges/Coding Multi Select Codes Urinary/Genital Urinary/Genital CPT Codes: No Charge
--- NOTE | 2025-08-21 22:03 | PCM.HP.OB ---
HPI - General General Date of Admission: 08/21/25 Chief Complaint: Contractions HPI Narrative HEATHER GUERRERO, is a 30 F who presents ambulatory to L&D with complaint of u/c's off & on all day which are becoming stronger & more frequent. Maternal Data Information RONEY Calculator Estimated Delivery Date Method Current WG Current Estimate 09/01/25 Ultrasound #1 38w 3d Other Estimates 08/31/25 LMP (Certain) 38w 4d PFSH PFSH Medical History Galactosemia Biotinidase deficiency Abnormal biopsy result Home Medications Medication Instructions Recorded Last Taken Type PNV no.151-iron 27 mg-folic 800 cap PO 09/10/22 Unknown History mcg-omega3 260 cr-flf-pre-fish capsule omega-3 fatty acids 600 mg PO DAILY 04/10/23 04/10/23 08:00 History 600 mg Allergy/AdvReac Type Severity Reaction Status Date / Time No Known Allergies Allergy Verified 08/17/25 08:38 Family History Grandfather Cancer unknown type Grandmother Hypertension Ovarian cancer Paternal Grandfather Hypertension Grandmother Asthma Father Hypertension Social History adopted: No household members: spouse and children number of children: 2 current occupation: [employer] current occupational exposures/hazards: No pets and animals: Yes pets and animals: dog(s) and farm animals history of recent travel: No sexually active: Yes Smoking Status: Never smoker second hand exposure: No alcohol intake: never substance use type: does not use well-balanced diet: daily or most days caffeine: No eating out: rarely or never during the past year weight has: decreased > 10 lbs what type of physical activity do you participate in: walking frequency: 1-2 times per week duration: 15-30 minutes/day gabriela/scientology: Hindu seatbelt use: always do you feel safe at home: Yes 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 Date Name GA/Weeks Outcome Route Bth Weight Infant Gen Labor Lgth Anesthesia Del Locatn Provider FOB Unknown 11/2020 spontaneous Unknown 12/2020 spontaneous 10/02/21 Jacsindi 40 live - full term 9lbs 11oz Male 23 epidural [facility] Bam 04/28/23 Iveth Alba 38 live - full term [id number] Female epidural [facility] JianThom Knight Bam Delivery Date: 10/02/21 Last Updated by: Chacha Farmer SROM 40w SM Renae Delivery Date: 04/28/23 Last Updated by: Sharda James IOL Visit Details Expected Delivery Route/Plan Labor Preferences- CB/BF classes: no labor support person: Bam labor intervention preferences: [] pain management options preferred: epidural cut cord/dad catch: cord : yes PP control planned: discussed discussed possible routes of delivery and associated risks: [] special requests: [] Plans Covid status: [] Flu vaccine: declined Tdap vaccine: given Rhogam: na LARC form signed: yes movement and labor precautions reviewed. Problem list reviewed and updated with the most current plan of care details and appropriate orders placed. Relevant counseling for the gestational age provided. Continue routine care and follow up unless otherwise noted in visit notes/problem list details OB Flowsheet Initial Weight: 142 lb Date <del> </del> EGA Weight BP Urine Prot <del> </del> Glucose FHR FuHt Pres Dilation <del> </del> Effaced St Visit Note 01/27/25 <del> </del> 9w 0d 142 lb 6 oz (+6 oz) 115/75 <del> </del> 169 <del> </del> KW- CRL cons with dates. denies nipt. lead exposure and requesting lead testing-added to NOB labs 02/24/25 <del> </del> 13w 0d 144 lb (+2 lb) 119/75 Negative <del> </del> Negative 150 <del> </del> SM- no vb cramping 03/23/25 <del> </del> 16w 6d 147 lb 8 oz (+5 lb 8 oz) 123/70 Negative <del> </del> Negative 147 <del> </del> JV- starting to feel some fluttering. no cramping or bleeding. 04/20/25 <del> </del> 20w 6d 152 lb 6 oz (+10 lb 6 oz) 120/77 Negative <del> </del> Negative 145 <del> </del> MH-NO VB. Feeling good movement. Nl anatomy US 05/19/25 <del> </del> 25w 0d 159 lb 5 oz (+17 lb 5 oz) 114/67 Negative <del> </del> Negative 141 25 <del> </del> MH-No Vb, LOF. Good FM. Larc 06/09/25 <del> </del> 28w 0d 165 lb 3 oz (+23 lb 3 oz) 115/73 Negative <del> </del> Negative 155 28 <del> </del> KW- no vb/lof/ctx. glucose today. Rhogam given. would like to wait on tdap. declines flu 06/23/25 <del> </del> 30w 0d 166 lb 5 oz (+24 lb 5 oz) 129/80 Negative <del> </del> Negative 140 30 <del> </del> SM- no vb lof good fm no regular ctx 07/08/25 <del> </del> 32w 1d 169 lb 2 oz (+27 lb 2 oz) 133/77 Negative <del> </del> Negative 140 32 <del> </del> KW- no vb/lof/ctx. good fm 07/20/25 <del> </del> 33w 6d 173 lb 8 oz (+31 lb 8 oz) 112/77 Negative <del> </del> Negative 135 34 <del> </del> JV- no lof, vaginal bleeding, or dec fm. 08/04/25 <del> </del> 36w 0d 175 lb 6 oz (+33 lb 6 oz) 124/80 Negative <del> </del> Negative 139 36 <del> </del> KV- Good FM. Occasional runs of ctx. No LOF/VB. GBS and CBC to check plt today. 08/12/25 <del> </del> 37w 1d 175 lb 8 oz (+33 lb 8 oz) 121/80 Negative <del> </del> Negative 140 3.5 Cephalic <del> </del> JV- no lof, vaginal bleeding, or dec fm. declines pelvic exam. gbs neg. 08/17/25 <del> </del> 37w 6d 178 lb (+36 lb) 120/77 Negative <del> </del> Negative 140 38 Cephalic 3 <del> </del> 70 -2 KW- no vb/lof/ctx. good fm. NST Assessment Assessment Detail: current tracing: FHT: 140, accelerations present, decelerations absent, Moderate variability reactive, category I tracing [place]: Contractions every 3 to 6 mins, lasting 60 to 100 seconds. Palpates moderate. A/P: Active labor. FHR Category 1. ROS Constitutional Constitutional: Reports systems reviewed and no addt'l complaints, except as documented Cardiovascular Cardiovascular: Reports systems reviewed and no addt'l complaints, except as documented Respiratory/Chest Respiratory/Chest: Reports systems reviewed and no addt'l complaints, except as documented Gastrointestinal Gastrointestinal: Reports systems reviewed and no addt'l complaints, except as documented Genitourinary Genitourinary: Reports systems reviewed and no addt'l complaints, except as documented Psychiatric Psychiatric: Reports systems reviewed and no addt'l complaints, except as documented Vital Signs Vital Signs Vital Signs: 08/21/25 21:19 08/21/25 21:19 08/21/25 21:19 Temperature 97.9 F Pulse Rate 108 H Blood Pressure 128/79 H BP Systolic 128 BP Diastolic 79 Weight Weight: 178 lb 4 oz Body Mass Index (BMI) 31.6 PRE- weight 135 lb PRE- Body Mass Index 23.9 (BMI) Physical Exam Const alert, oriented x3 and no apparent distress General Appearance: cooperative and comfortable HEENT normocephalic and moist oral mucous membranes Chest inspection of chest normal Resp normal respiratory effort and no retractions Resp Narrative: Respirations eased & unlabored. No s/s of respiratory distress noted. Cardio regular rate and regular rhythm GI soft to palpation and non-tender GI Narrative: Gravid. Manual OB Exam: dilated 5-6cm, effaced 90% and station -1 Psych mental status grossly normal, affect normal and speech normal Labs Labs Labs: Blood Type O NEGATIVE Antibody Screen NEGATIVE Hct, (37-47) 34.1 % L Hgb, (12.0-15.0) 11.8 g/dL L Obstetrics Ultrasound Syphilis Total Ab, (Nonreactive) Nonreactive Rubella IgG Antibody, (Nonreactive) REAC Hep Bs Antigen, (Nonreactive) Nonreactive Hepatitis C Antibody, (Nonreactive) Nonreactive Chlamydia DNA (AUDRA), (Negative) Negative N.gonorrhoeae DNA (AUDRA), (Negative) Negative HIV 1&2 Antibody, (Nonreactive) Nonreactive Glucose 1 Hr 50 gm, (70-140) 78 mg/dL Rhogam given: Yes Assessment & Plan (1) Gestational thrombocytopenia: COMMENT: repeat CBC in 4w:139 to 129:repeat 4 wk:127. 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 Pain management: plans epidural. GBS Negative. Management of any complications: none I have reviewed the [facility] and made any clinically relevant updates. Charges/Coding Multi Select Codes Urinary/Genital Urinary/Genital CPT Codes: No Charge
[2025-08-21 22:34] LABS: Syphilis Antibodies Nonreactive (Nonreactive)
[2025-08-21] MEDS: fentaNYL-bupivacaine (epidural) 100 ML BAG EPIDURAL (22:52)
[2025-08-21] MEDS: Lactated Ringers 1,000 ML 200 ML IV (22:52)
[2025-08-21] MEDS: Mag /Aluminum/Simeth WCH UDC 30 ML ORAL.SUSP PO (23:48)
[2025-08-22] VITALS (17 sets, daily range): BP systolic 105–125; BP diastolic 57–73; PULSE 70–94; RESP 16–18; TEMP 36.4–36.8; O2SAT 96–100
[2025-08-22] MEDS: Oxytocin 15 Units/NS 250ml 15 UNITS/250 ML IV.SOLN 334 UNITS IV (00:41)
--- NOTE | 2025-08-22 00:52 | EX.PCM.OBVAG ---
Assessment & Plan (1) Gestational thrombocytopenia: COMMENT: repeat CBC in 4w:139 to 129:repeat 4 wk:127. Rpt 4wk (2) Rh negative status during : QUALIFIERS: Trimester: second trimester Qualified Code(s): O26.892 - Other specified related conditions, second trimester; Z67.91 - Unspecified blood type, Rh negative COMMENT: Rhogam @ 28wks & PRN; to call with any bleeding/spotting (3) Vaginal delivery: COMMENT: JEANIE CHANG liveborn Male 08/[birth year]/25 @ 38 wks 4 days. Intact perineum. PLAN: Plan Patient began pushing and delivered the head in the [place]ILTON presentation. The head was delivered atraumatically. The anterior and posterior shoulders delivered without complication followed by the rest of the and the was placed on the maternal abdomen. Delayed cord clamping was employed for approximately 3 minutes. Cord was clamped and cut and gentle traction was applied to the cord and the placenta delivered spontaneously immediately following it was noted to be intact with three-vessel cord. The perineum and vagina were inspected and noted to have no laceration. EBL was 250cc. Patient and tolerated delivery well. Maternal Data Information RONEY Calculator Estimated Delivery Date Method Current WG Current Estimate 09/01/25 Ultrasound #1 38w 4d Other Estimates 08/31/25 LMP (Certain) 38w 5d Gestational age: 38 wks 4 days Vaginal Delivery Maternal Presentation Maternal Presentation: Active Labor Vaginal Delivery Information Procedure Performed: Spontaneous Vaginal Delivery Surgeon/Practitioner: Mague De Luna Date of Procedure: 08/22/25 Type of anesthesia: Epidural Estimated Blood Loss: 250 Time of Delivery: 00:35 Findings Presentation: Vertex and [place] Amniotic Membrane Rupture Type: Artificial Amniotic Fluid Description: Clear Placental Delivery Description: Spontaneous Placenta Disposition: [facility] Specimen collected: Yes Description of specimen(s) removed: Placenta Cord Vessel Description: 3 Vessels Cord Entanglement: None Infant A Gender: Male (1 minute): 9 (5 minute): 10 Delayed Cord Clamping: Yes Internal Control Analyst bathhouse keeper: No Post Vaginal Deli Medications given after delivery: IV Pitocin Episiotomy Description: None Laceration: None Complication Complications: No Multi Select Codes Urinary/Genital Urinary/Genital CPT Codes: 85097 Vaginal Delivery [facility]
--- NOTE | 2025-08-22 01:06 | DCINST_ITS ---
Discharge Instructions DC O2, CPAP, BIPAP needs Home O2 Discharge instructions: No Dressing / Incision Discharge Activity: Return to Normal Activity (Rest, then slowly increase activity.) and May Shower May resume sexual activity in: 4-6 weeks Weight Bearing Status: Full weight bearing Dressing / Incision Call your doctor if you observe: Fever of 101 or Higher, Inability to urinate, Using more than 1 pad per hour, Shortness of breath, Fainting spells, Swelling in the ankles, Chest pain, Calf discomfort and Uncontrolled pain Follow Up Care Please Follow Up With: [facility] When: 6 weeks Test Results: Test results from this visit will be discussed in further detail at your follow- up appointment, if applicable. Discharge Plan Admission Admit Date/Time: 08/21/25 21:27 Attending Provider: Mague De Luna Primary Care Provider: Care Physician,No Primary Instructions Additional Instructions / Restrictions: Rest, relax & enjoy baby! Discharge Orders/Prescriptions Prescriptions: Continued [id number] 27 mg iron-800 mcg-260 mg capsule PO omega-3 fatty acids Capsule 600 mg PO DAILY Referrals / Follow Up: Care Physician,No Primary [Primary Care Provider, Medical]
[2025-08-22] MEDS: Oxytocin 15 Units/NS 250ml 15 UNITS/250 ML IV.SOLN 83 UNITS IV (01:26)
[2025-08-22] MEDS: Rho(D) Immune Globulin 300 MCG (1500 Unit) Syringe IV (05:43)
[2025-08-22 06:21] LABS: Hematocrit 32.0 % (37-47); Hemoglobin 11.0 g/dL (12.0-15.0); Immature Granulocytes Count 0.060 X10^3/uL (0.0-0.0); Mean Corp Hgb Conc 34.4 g/dL (32-36); Mean Corpuscular Volume 87.0 fL (81-99); Mean Platelet Vol. 11.5 fl (6.2-12.0); NRBC Flagged by Analyzer 0 % (0-5); Platelet Count 129 K/mm3 (150-450); RBC Distribution Width CV 12.0 % (11.6-14.6); RBC Distribution Width SD 38.3 fl (35.1-43.9); Red Blood Count 3.68 M/mm3 (4.2-5.4); White Blood Count 10.4 K/mm3 (4.4-11.0)
--- NOTE | 2025-08-22 07:42 | PCM.PN.OB ---
Subjective Subjective Patient doing well without complaints. Tolerating PO. Ambulating and voiding without difficulty. feeding well. Denies chest pain, shortness of breath, calf pain/swelling, fevers, chills, lightheadedness. Objective Data Objective Data Vital Signs: Vital Signs Temp Pulse Resp BP Pulse Ox 97.9 F 75 16 105/59 L 100 08/21/25 21:19 08/22/25 02:50 08/21/25 21:19 08/22/25 02:50 08/21/25 23:07 Weight: 178 lb 4 oz Body Mass Index (BMI) 31.6 Intake & Output: Intake and Output for Last 24 Hours 08/20/25 08/21/25 08/22/25 23:59 23:59 23:59 Intake Total 1000 / 1000 847.11 / 847.11 Output Total 500 / 500 900 / 900 Balance 500 / 500 -52.89 / -52.89 Lab / Micro Data 08/22/25 05:55 Labs: Laboratory Results - last 24 hr 08/21/25 21:50: WBC 9.6, RBC 3.97 L, Hgb 11.8 L, Hct 34.1 L, MCV 85.9, MCH 29.7, MCHC 34.6, RDW Std Deviation 37.7, RDW Coeff of Luis 12.0, Plt Count 145 L, MPV 10.9, Immature Gran % (Auto) 0.500, Neut % (Auto) 71.7 H, Lymph % (Auto) 20.5, [place] % (Auto) 6.4, Eos % (Auto) 0.7, Baso % (Auto) 0.2, Absolute Neuts (auto) 6.9, Absolute Lymphs (auto) 1.97, Nucleated RBC % 0, Syphilis Total Ab Nonreactive, Blood Type O NEGATIVE, Antibody Screen NEGATIVE 08/22/25 03:05: Screen NEGATIVE, Baby's Blood Type O POSITIVE, Baby's DANY NEGATIVE 08/22/25 05:55: WBC 10.4, RBC 3.68 L, Hgb 11.0 L, Hct 32.0 L, MCV 87.0, MCH 29.9, MCHC 34.4, RDW Std Deviation 38.3, RDW Coeff of Luis 12.0, Plt Count 129 L, MPV 11.5, Immature Gran % (Auto) 0.600, Neut % (Auto) 77.0 H, Lymph % (Auto) 14.8 L, [place] % (Auto) 6.8, Eos % (Auto) 0.6, Baso % (Auto) 0.2, Absolute Neuts (auto) 8.0 H, Absolute Lymphs (auto) 1.54, Nucleated RBC % 0 ROS Constitutional Constitutional: Reports systems reviewed and no addt'l complaints, except as documented Cardiovascular Cardiovascular: Reports systems reviewed and no addt'l complaints, except as documented Respiratory/Chest Respiratory/Chest: Reports systems reviewed and no addt'l complaints, except as documented Gastrointestinal Gastrointestinal: Reports systems reviewed and no addt'l complaints, except as documented Physical Exam Const alert, oriented x3 and no apparent distress HEENT Head and Scalp: atraumatic Resp normal respiratory effort GI soft to palpation and non-tender Bimanual Exam - Vag & Uterus: uterus non-tender Uterus Palpation: uterus fundus firm (below Umbilicus) Assessment & Plan (1) Vaginal delivery: COMMENT: JEANIE CHANG liveborn Male 08/[birth year]/25 @ 38 wks 4 days. Intact perineum. PLAN: Plan s/p PPD # 1 1. routine post delivery care 2. breast feeding- support given 3. rh neg 4. rubella immune
[2025-08-23 01:21] VITALS: PULSE 91; TEMP 36; O2SAT 98
[2025-08-23 01:22] VITALS: BP 125/67; PULSE 83; PULSE 90; RESP 16; TEMP 36.1; O2SAT 98
[2025-08-23 04:44] VITALS: BP 110/56; PULSE 72; PULSE 90; RESP 16; TEMP 36.6; O2SAT 97
[2025-08-23 07:29] VITALS: BP 123/76; PULSE 74; O2SAT 99
[2025-08-23 07:30] VITALS: BP 123/76; PULSE 75; RESP 14; O2SAT 100
--- NOTE | 2025-08-23 08:05 | PN.OBGYN_ITS ---
Subjective Subjective Patient doing well without complaints. Tolerating PO. Ambulating and voiding without difficulty. Feeding well. Denies chest pain, shortness of breath, calf pain/swelling, fevers, chills, lightheadedness. Objective Data Objective Data Vital Signs: Vital Signs Temp Pulse Resp BP Pulse Ox O2 Del Method 97.9 F 75 14 123/76 H 100 Room Air 08/23/25 04:44 08/23/25 07:30 08/23/25 07:30 08/23/25 07:30 08/23/25 07:30 08/23/25 07:30 Oxygen Delivery Method Room Air Weight: 178 lb 4 oz Body Mass Index (BMI) 31.6 Intake & Output: Intake and Output for Last 24 Hours 08/21/25 08/22/25 08/23/25 23:59 23:59 23:59 Intake Total 1000 / 1000 847.11 / 847.11 Output Total 500 / 500 900 / 900 Balance 500 / 500 -52.89 / -52.89 Lab / Micro Data Attestation: I reviewed the patient's lab results. 08/22/25 05:55 ROS Constitutional Constitutional: Reports systems reviewed and no addt'l complaints, except as documented; Denies anorexia or headache(s) Cardiovascular Cardiovascular: Reports systems reviewed and no addt'l complaints, except as documented; Denies dizziness, dyspnea, nausea or tachypnea Respiratory/Chest Respiratory/Chest: Reports systems reviewed and no addt'l complaints, except as documented; Denies cough, dyspnea, shortness of breath at rest or tachypnea Gastrointestinal Gastrointestinal: Reports systems reviewed and no addt'l complaints, except as documented; Denies abdominal pain, constipation or nausea Genitourinary Genitourinary: Reports systems reviewed and no addt'l complaints, except as documented; Denies burning urination, difficulty urinating, dysuria, urinary frequency or urinary incontinence Musculoskeletal Musculoskeletal: Reports systems reviewed and no addt'l complaints, except as documented Integumentary Integumentary: Reports systems reviewed and no addt'l complaints, except as documented Neurologic Neurologic: Reports systems reviewed and no addt'l complaints, except as documented; Denies abnormal speech, dizziness or headache(s) Psychiatric Psychiatric: Reports systems reviewed and no addt'l complaints, except as documented Endocrine Endocrinology: Reports systems reviewed and no addt'l complaints, except as documented Hematologic/Lymphatic Hematologic/Lymphatic: Reports systems reviewed and no addt'l complaints, except as documented Physical Exam Const alert, oriented x3 and no apparent distress Neck full ROM Resp normal respiratory effort, normal air movement and no retractions Effort and Inspection: able to speak in complete sentences and symmetric chest movement GI soft to palpation Bladder / Kidney Exam: bladder normal to palpation Uterus Palpation: uterus fundus firm Extremity normal to inspection and full ROM Psych mental status grossly normal, thought process normal and cooperative Assessment & Plan (1) Vaginal delivery: COMMENT: JEANIE CHANG liveborn Male 08/[birth year]/25 @ 38 wks 4 days. Intact perineum. PLAN: s/p PPD # 1 1. routine post delivery care 2. breast feeding- support given 3. rh positive 4. rubella immune 5. Discharge home (2) Gestational thrombocytopenia: COMMENT: repeat CBC in 4w:139 to 129:repeat 4 wk:127. Rpt 4wk (3) UTI (urinary tract infection) during : (4) Lead exposure: (5) History of thrombocytopenia: COMMENT: First (6) Rh negative status during : QUALIFIERS: Trimester: second trimester Qualified Code(s): O 26.892 - Other specified related conditions, second trimester; Z67.91 - Unspecified blood type, Rh negative COMMENT: Rhogam @ 28wks & PRN; to call with any bleeding/spotting (7) History of miscarriage, currently : COMMENT: 2 Miscarriages in 2020 (8) Supervision of high-risk : QUALIFIERS: Trimester: second trimester Qualified Code(s): O09.92 - Supervision of high risk , unspecified, second trimester COMMENT: PRR, ; RONEY 08/31/24; PC: Renae & Iveth; : Bam (9) : QUALIFIERS: Weeks of gestation: 37 weeks Qualified Code(s): Z 3A.37 - 37 weeks gestation of COMMENT: GBS neg, declined genetic screening, prior carrier testing done - 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
== END 2025-08-23 10:07 | disposition home or self-care (01) | DRG 807 ==
PROVIDERS: Admitting Provider Midwife; Referring Provider Midwife; Visit Provider Midwife
DX: O99.12 Other diseases of the blood and blood-forming organs and certain disorders involving the immune mechanism complicating childbirth (principal); Z37.0 Single live birth; D69.6 Thrombocytopenia, unspecified; O26.893 Other specified pregnancy related conditions, third trimester; Z3A.38 38 weeks gestation of pregnancy; Z67.91 Unspecified blood type, Rh negative; Z87.59 Personal history of other complications of pregnancy, childbirth and the puerperium; Z14.8 Genetic carrier of other disease
CPT/HCPCS: 59025; 59050; 85025; 85461; 86780; 86850; 86900; 86901; 90384; 99221; G0378; J2790; J2791